=== PATIENT | male | born 1965 | race Hispanic/Latino ===

== ENCOUNTER 2017-11-04 18:02 | Observation (INO) | payer OTHER ==
[2017-11-04] MEDS ORDERED: NITROGLYCERIN 0.4 MG/TAB SL ONE (18:32)
[2017-11-04 19:00] LABS: Protime INR 1.03
--- NOTE | 2017-11-04 19:00 | RAD REPORT ---
EXAM DESCRIPTION: RAD - Chest Single View - 11/04/2017 6:39 pm CLINICAL HISTORY: CHEST PAIN Chest pain. COMPARISON: Chest Single View dated 03/01/2017; Chest Single View dated 11/27/2016; Chest Single View d ated 04/17/2016; Chest Single View dated 12/19/2015 FINDINGS: Portable technique limits examination quality. The lungs are grossly clear. The heart is normal in size. No displaced fractures.Sternotomy wires pre sent. IMPRESSION: No acute intrathoracic process suspected.
[2017-11-04 19:01] LABS: Absolute Lymphocytes (CBC) 1.8 K/uL (0.7-4.9); Absolute Monocytes 0.5 K/uL (0.1-1.3); Absolute Neutrophil 4.4 K/uL (1.8-8.0); Eosinophils % 3.3 % (0-4.4); Lymphocytes % 26.1 % (15.3-44.8); MCH 30.8 pg (27.0-35.0); MCV 87.9 fL (80-100); MPV 8.2 fL (7.6-11.3); Monocytes % 6.9 % (3.3-12.3); RBC Red Blood Cell Count 5.23 M/uL (4.33-5.43)
[2017-11-04 19:20] LABS: ALT/SGPT 33 U/L (12-78); AST/SGOT 26 U/L (15-37); Albumin 3.4 g/dL (3.4-5.0); Alkaline Phosphatase 89 U/L (45-117); BUN Blood Urea Nitrogen 16 mg/dL (7-18); Bicarbonate 28 mmol/L (21-32); Bilirubin Direct 0.1 mg/dL (0-0.2); Bilirubin Total 0.3 mg/dL (0.2-1.0); Glucose Level 198 mg/dL (74-106); Magnesium 1.8 mg/dL (1.8-2.4); NT PRO-BNP 771 pg/mL (<125); Potassium 3.9 mmol/L (3.5-5.1); Protein, Total 7.9 g/dL (6.4-8.2); Sodium Level 135 mmol/L (136-145); Troponin (Emerg Dept Use Only) < 0.02 ng/mL (0.0-0.045)
[2017-11-04] MEDS ORDERED: ONDANSETRON 4 MG/2 ML VIAL ONE (19:45)
[2017-11-04] MEDS ORDERED: MORPHINE 4 MG/ML SYR ONE (19:45)
--- NOTE | 2017-11-04 19:45 | EDPHYS ---
Physician Documentation [facility] Name: Jorge Schultz Jr Age: 52 yrs Sex: Male : 1965 Arrival Date: 11/04/2017 Time: 18:03 Bed 13 Private MD: Felipe Sinha ED Physician Tee Bragg HPI: 11/04 19:29 This 52 yrs old Male presents to ER via Ambulatory with complaints of Chest jr8 Pain > 30 y/o. 19:29 The patient or guardian reports chest pain that is located primarily in the substernal jr8 area. Onset: acutely, today. The pain radiates to the left arm. Associated signs and symptoms: The patient has no apparent associated signs or symptoms. The chest pain is described as a heaviness, a pressure. Duration: The patient or guardian reports a single episode, that is still ongoing. Modifying factors: The symptoms are alleviated by nothing. the symptoms are aggravated by nothing. Severity of pain: At its worst the pain was moderate in the emergency department the pain is unchanged. The patient has experienced similar episodes in the past, a few times. The patient has not recently seen a physician. Historical: - Allergies: 18:20 No Known Allergies; ph - Home Meds: 18:20 Lantus 100 unit/mL Sub-Q soln [Active]; lisinopril Oral [Active]; Metoprolol Tartrate ph Oral [Active]; [place] 10-325 mg Oral tab [Active]; Plavix 75 mg Oral tab 1 tab once daily [Active]; Soma Oral [Active]; Victoza 3-Imer 0.6 mg/0.1 mL (18 mg/3 mL) subcutaneous pnij [Active]; Xanax Oral [Active]; Lipitor Oral [Active]; Jessenia Aspirin oral oral [Active]; - PMHx: 18:20 ADD/ADHD; Anxiety; CAD; Diabetes - NIDDM; GERD; Glaucoma; High Cholesterol; Myocardial ph infarction; Hypertension; - PSHx: 18:20 CABG; Heart stents; ph - Immunization history:: Adult Immunizations unknown. - Social history:: Smoking status: Patient/guardian denies using tobacco. - Ebola Screening: : No symptoms or risks identified at this time. ROS: 19:29 Eyes: Negative for injury, pain, redness, and discharge, ENT: Negative for injury, jr8 pain, and discharge, Neck: Negative for injury, pain, and swelling, Respiratory: Negative for shortness of breath, cough, wheezing, and pleuritic chest pain, Abdomen/GI: Negative for abdominal pain, nausea, vomiting, diarrhea, and constipation, Back: Negative for injury and pain, MS/Extremity: Negative for injury and deformity, Skin: Negative for injury, rash, and discoloration, Neuro: Negative for headache, weakness, numbness, tingling, and seizure. 19:29 Cardiovascular: Positive for chest pain, Negative for edema, orthopnea, palpitations, paroxysmal nocturnal dyspnea. Exam: 19:29 Eyes: Pupils equal round and reactive to light, extra-ocular motions intact. Lids and jr8 lashes normal. Conjunctiva and sclera are non-icteric and not injected. Cornea within normal limits. Periorbital areas with no swelling, redness, or edema. ENT: Nares patent. No nasal discharge, no septal abnormalities noted. Tympanic membranes are normal and external auditory canals are clear. Oropharynx with no redness, swelling, or masses, exudates, or evidence of obstruction, uvula midline. Mucous membranes moist. Neck: Trachea midline, no thyromegaly or masses palpated, and no cervical lymphadenopathy. Supple, full range of motion without nuchal rigidity, or vertebral point tenderness. No Meningismus. Cardiovascular: Regular rate and rhythm with a normal S1 and S2. No gallops, murmurs, or rubs. Normal PMI, no JVD. No pulse deficits. Respiratory: Lungs have equal breath sounds bilaterally, clear to auscultation and percussion. No rales, rhonchi or wheezes noted. No increased work of breathing, no retractions or nasal flaring. Abdomen/GI: Soft, non-tender, with normal bowel sounds. No distension or tympany. No guarding or rebound. No evidence of tenderness throughout. Back: No spinal tenderness. No costovertebral tenderness. Full range of motion. Skin: Warm, dry with normal turgor. Normal color with no rashes, no lesions, and no evidence of cellulitis. MS/ Extremity: Pulses equal, no cyanosis. Neurovascular intact. Full, normal range of motion. Neuro: Awake and alert, GCS 15, oriented to person, place, time, and situation. Cranial nerves II-XII grossly intact. Motor strength 5/5 in all extremities. Sensory grossly intact. Cerebellar exam normal. Normal gait. Vital Signs: 18:17 BP 164 / 107; Pulse 93; Resp 22; Temp 97.7; Pulse Ox 98% on R/A; Weight 99.79 kg; Pain ph 7/10; 19:33 BP 135 / 84; Pulse 89; Resp 16; Temp 98.1; Pulse Ox 98% on R/A; Pain 6/10; ak1 20:55 BP 147 / 87; Pulse 81; Resp 16; Temp 98.1; Pulse Ox 98% on R/A; Pain 4/10; ak1 MDM: 18:20 Patient medically screened. jr8 19:29 HEART Score: History: Moderately Suspicious (1), ECG: Normal (0), Age: > 45 and < 65 jr8 years (1), Risk Factors: > or = 3 Risk factors for atherosclerotic disease (2), [Hypercholesterolemia] [Hypertension] [DM] [+ Family HX] [Obesity] Troponin: < or = 1 x Normal Limit (0). The patient was not given aspirin in the Emergency Department. Patient reports taking aspirin within the past 24 hours. Data reviewed: vital signs, nurses notes, lab test result(s), EKG, radiologic studies, plain films. Data interpreted: Pulse oximetry: on room air is 98 %. Interpretation: normal. Counseling: I had a detailed discussion with the patient and/or guardian regarding: the historical points, exam findings, and any diagnostic results supporting the discharge/admit diagnosis, lab results, radiology results, the need for further work-up and treatment in the hospital. 11/04 18:21 Order name: Basic Metabolic Panel; Complete Time: 19:21 11/04 18:21 Order name: CBC with Diff; Complete Time: 19:20 11/04 18:21 Order name: LFT's; Complete Time: 19:21 11/04 18:21 Order name: Magnesium; Complete Time: :21 11/04 18:21 Order name: NT PRO-BNP; Complete Time: 19:21 11/04 18:21 Order name: PT-INR; Complete Time: 19:20 11/04 18:21 Order name: Troponin (emerg Dept Use Only); Complete Time: 19:21 11/04 18:21 Order name: XRAY Chest (1 view); Complete [facility]: 19:20 [facility] 11/04 18:21 Order name: EKG; Complete Time: 18:21 [facility] 11/04 18:21 Order name: Cardiac monitoring; Complete Time: 18:30 [facility] 11/04 19:59 Order name: Urine Dipstick--Ancillary (enter results); Complete Time: 21:28 [facility] 11/04 18:21 Order name: EKG - Nurse/Tech; Complete Time: 18:31 [facility] 11/04 18:21 Order name: IV Saline Lock; Complete Time: 18:39 [facility] 11/04 18:21 Order name: Labs collected and sent; Complete Time: 18:39 [facility] 11/04 18:21 Order name: O2 Per Protocol; Complete Time: 18:31 [facility] 11/04 18:21 Order name: O2 Sat Monitoring; Complete Time: 18:31 [facility] 11/04 18:21 Order name: Urine Dipstick-Ancillary (obtain specimen); Complete Time: 19:54 jr Administered Medications: 18:25 Drug: Nitroglycerin 0.4 mg Route: Sublingual; rb1 18:51 Drug: Nitroglycerin 0.4 mg Route: Sublingual; rb1 19:31 Drug: Nitroglycerin 0.4 mg {Note: 3rd dose held new verbal orders given.} Route: ak1 Sublingual; 19:32 Follow up: Response: No adverse reaction ak1 19:44 Drug: Zofran 4 mg Route: IVP; Site: left antecubital; ak1 19:49 Follow up: Response: No adverse reaction ak1 19:45 Drug: morphine 4 mg Route: IVP; Site: left antecubital; ak1 19:50 Follow up: Response: No adverse reaction ak1 Disposition: 11/04/17 19:44 Hospitalization ordered by Kylee Hill for Observation. Preliminary diagnosis is Chest pain, unspecified. - Bed requested for Telemetry/MedSurg (observation). - Status is Observation. ak1 - Condition is Stable. - Problem is new. - Symptoms have improved. UTI on Admission? No Addendum: 11/09/2017 07:04 Co-signature as Attending Physician, Tee Bragg MD. r guerda Signatures: Dispatcher [facility] [place], Herlinda, RN RN dw Tee Bragg MD MD rn Roszak, Josh, PA PA jr8 Solange Rosen RN RN ak1 Yojana Hall RN RN Debra Tsang, RN RN rb1 Corrections: (The following items were deleted from the chart) 11/04 20:02 19:44 Hospitalization Ordered by Kylee Hill MD for Observation. Preliminary dw diagnosis is Chest pain, unspecified. Bed requested for Telemetry/MedSurg (observation). Status is Observation. Condition is Stable. Problem is new. Symptoms have improved. UTI on Admission? No. jr8 21:52 20:02 11/04/2017 19:44 Hospitalization Ordered by Kylee Hill MD for Observation. ak1 Preliminary diagnosis is Chest pain, unspecified. Bed requested for Telemetry/MedSurg (observation). Status is Observation. Condition is Stable. Problem is new. Symptoms have improved. UTI on Admission? No. dw
--- NOTE | 2017-11-04 19:45 | ER ---
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 Transition of care: patient was not received from another setting of care. Onset of symptoms was November 04, 2017. Risk Assessment: Do you want to hurt yourself or someone else? Patient reports no desire to harm self or others. Initial Sepsis Screen: Does the patient meet any 2 criteria? No. Patient's initial sepsis screen is negative. Does the patient have a suspected source of infection? No. Patient's initial sepsis screen is negative. Care prior to arrival: Medication(s) given: ASA, 81 mg, x 4. 18:15 Method Of Arrival: Ambulatory ph 18:15 Acuity: AALIYAH 2 ph Historical: - Allergies: 18:20 No Known Allergies; ph - Home Meds: 18:20 Lantus 100 unit/mL Sub-Q soln [Active]; lisinopril Oral [Active]; Metoprolol Tartrate ph Oral [Active]; [place] 10-325 mg Oral tab [Active]; Plavix 75 mg Oral tab 1 tab once daily [Active]; Soma Oral [Active]; Victoza 3-Imer 0.6 mg/0.1 mL (18 mg/3 mL) subcutaneous pnij [Active]; Xanax Oral [Active]; Lipitor Oral [Active]; Jessenia Aspirin oral oral [Active]; - PMHx: 18:20 ADD/ADHD; Anxiety; CAD; Diabetes - NIDDM; GERD; Glaucoma; High Cholesterol; Myocardial ph infarction; Hypertension; - PSHx: 18:20 CABG; Heart stents; ph - Immunization history:: Adult Immunizations unknown. - Social history:: Smoking status: Patient/guardian denies using tobacco. - Ebola Screening: : No symptoms or risks identified at this time. Screenin:06 Abuse screen: Denies threats or abuse. Nutritional screening: No deficits noted. rb1 Tuberculosis screening: No symptoms or risk factors identified. Fall Risk None identified. Assessment: 18:06 General: Appears uncomfortable, Behavior is calm, cooperative, Denies fever. Pain: rb1 Complains of pain in anterior aspect of left upper chest Pain radiates to left arm Pain currently is 7 out of 10 on a pain scale. Pain began around 1200 this afternoon. Neuro: Level of Consciousness is awake, alert, obeys commands, Oriented to person, place, time, situation. Neuro: Reports weakness. Cardiovascular: Capillary refill < 3 seconds is brisk in bilateral fingers. Respiratory: Airway is patent Respiratory effort is even, unlabored, Respiratory pattern is regular, symmetrical. Respiratory: Reports shortness of breath. GI: Reports nausea. : No signs and/or symptoms were reported regarding the genitourinary system. Derm: Skin is dry, Skin is normal, Skin temperature is warm. Musculoskeletal: Range of motion: intact in all extremities. 18:50 Reassessment: Patient appears in no apparent distress at this time. Patient and/or rb1 family updated on plan of care and expected duration. Pain level reassessed. Patient is alert, oriented x 3, equal unlabored respirations, skin warm/dry/pink. pain 7/10. 19:19 Reassessment: Patient appears in no apparent distress at this time. Patient and/or ak1 family updated on plan of care and expected duration. Pain level reassessed. Patient is alert, oriented x 3, equal unlabored respirations, skin warm/dry/pink. 20:55 Reassessment: Patient appears in no apparent distress at this time. No changes from ak1 previously documented assessment. Patient and/or family updated on plan of care and expected duration. Pain level reassessed. Patient is alert, oriented x 3, equal unlabored respirations, skin warm/dry/pink. Patient states feeling better. Vital Signs: 18:17 BP 164 / 107; Pulse 93; Resp 22; Temp 97.7; Pulse Ox 98% on R/A; Weight 99.79 kg; Pain ph 7/10; 19:33 BP 135 / 84; Pulse 89; Resp 16; Temp 98.1; Pulse Ox 98% on R/A; Pain 6/10; ak1 20:55 BP 147 / 87; Pulse 81; Resp 16; Temp 98.1; Pulse Ox 98% on R/A; Pain 4/10; ak1 ED Course: 18:03 Patient arrived in ED. sb2 18:03 Felipe Sinha MD is Private Physician. sb2 18:06 Patient has correct armband on for positive identification. Bed in low position. Call rb1 light in reach. Side rails up X 1. nurse monitoring on. Pulse ox on. NIBP on. 18:06 Patient maintains SpO2 saturation greater than 95% on room air. rb1 18:08 Manan Monae PA is PHCP. jr8 18:08 Tee Bragg MD is Attending Physician. jr8 18:17 Triage completed. ph 18:19 Debra Arauz, RN is Primary Nurse. rb1 18:21 Arm band placed on Patient placed in an exam room, on a stretcher, on oxygen, on ph director of cardiac cath lab, on pulse oximetry. 18:38 Initial lab(s) drawn, by me, sent to lab. Inserted saline lock: 22 gauge in left ph antecubital area, using aseptic technique. Blood collected. 18:39 X-ray completed. Portable x-ray completed in exam room. Patient tolerated procedure bb2 well. 18:40 XRAY Chest (1 view) In Process Unspecified. EDMS 19:33 No provider procedures requiring assistance completed. Patient admitted, IV remains in ak1 place. 19:44 Kylee Hill MD is Hospitalizing Provider. jr8 Administered Medications: 18:25 Drug: Nitroglycerin 0.4 mg Route: Sublingual; rb1 18:51 Drug: Nitroglycerin 0.4 mg Route: Sublingual; rb1 19:31 Drug: Nitroglycerin 0.4 mg {Note: 3rd dose held new verbal orders given.} Route: ak1 Sublingual; 19:32 Follow up: Response: No adverse reaction ak1 19:44 Drug: Zofran 4 mg Route: IVP; Site: left antecubital; ak1 19:49 Follow up: Response: No adverse reaction ak1 19:45 Drug: morphine 4 mg Route: IVP; Site: left antecubital; ak1 19:50 Follow up: Response: No adverse reaction ak1 Outcome: 19:44 Decision to Hospitalize by Provider. jr8 20:54 Condition: stable ak1 20:54 Instructed on the need for admit. 21:42 Admitted to Med/surg accompanied by tech, via wheelchair, room 429, with chart. ak1 21:52 Patient left the ED. ak1 Signatures: Dispatcher [employer] EDMS Manan Monae PA PA jr8 Krenek, Amber RN RN ak1 Yojana Hall RN RN Debra Tsang RN RN rb1 Malika Lauren bb2 Marily Trinidad2
[2017-11-04] MEDS ORDERED: ACETAMINOPHEN 500 MG TAB PO PRN (20:44)
[2017-11-04] MEDS ORDERED: ALPRAZOLAM 0.25 MG TABLET PO PRN (20:44)
[2017-11-04] MEDS ORDERED: METOPROLOL TAR 50 MG TAB PO SCH (21:00)
[2017-11-04] MEDS ORDERED: INSULIN GLARGINE 100 UNITS/ML SQ SCH (21:00)
[2017-11-04 21:26] LABS: Urine Blood TRACE (NEG); Urine Glucose 1+ (NEG); Urine Protein 1+ (NEG); Urine Specific Gravity 1.015 (1.005-1.030); Urine pH 6.5 (5.0-7.0)
[2017-11-04 22:05] VITALS: O2SAT 98
[2017-11-04] MEDS: CARISOPRODOL 350 MG TAB PO PRN (22:55)
[2017-11-04] MEDS: HYDROCODONE/APAP 10/325 TAB PO PRN (22:56)
[2017-11-04 23:06] VITALS: BMI 34.9
[2017-11-04] MEDS: METOPROLOL TAR 50 MG TAB PO SCH (23:31)
[2017-11-05] MEDS: MORPHINE 4 MG/ML SYR IV PRN ×2 (01:12→06:05)
--- NOTE | 2017-11-05 07:47 | P.HP ---
Certification for Inpatient Patient admitted to: Observation With expected LOS: <2 Midnights Patient will require the following post-hospital care: None Practitioner: I am a practitioner with admitting privileges, knowledge of patient current condition, hospital course, and medical plan of care. Services: Services provided to patient in accordance with Admission requirements found in Title 42 Section 412.3 of the Code of Federal Regulations Patient History Date of Service: 11/04/17 Reason for admission: CP r/o ACS History of Present Illness: job id # [id number] Allergies No Known Drug Allergies Allergy (Verified 07/29/15 05:14) Unknown No Known Allergies Allergy (Uncoded 04/17/16 07:21) Unknown Home Medications: Amlodipine Besylate [Norvasc] 10 mg PO DAILY 11/17/11 Clopidogrel Bisulfate [Plavix] 75 mg PO DAILY 11/17/11 ALPRAZolam [Xanax*] 0.25 mg PO TID PRN 03/21/14 Atorvastatin Calcium 10 mg PO DAILY 03/21/14 Carisoprodol [Soma*] 350 mg PO QID PRN 03/21/14 Insulin Glargine,Hum.rec.anlog [Lantus] 58 unit SQ BEDTIME 03/22/14 Aspirin [Aspirin EC 81 MG] 81 mg PO DAILY 12/28/14 Bimatoprost [Lumigan Opthalmic Drops*] 1 drop OP BEDTIME 12/28/14 Hydrocodone 10/APAP 325 [[place] 10/325*] 1 tab PO Q6H PRN 01/22/15 Albuterol Sulfate [Proair Hfa] 2 puff IH QID PRN 03/18/15 Liraglutide [Victoza 2-Imer] 1.8 mg SQ DAILY 03/18/15 Metoprolol Tartrate 100 mg PO BID 11/04/17 - Past Medical/Surgical History Diabetic: Yes -: X3 MIs -: IDDM -: chronic back pain -: cataracts -: glaucoma rt eye -: cellulitis -: staph infection with CABG -: Glaucoma -: Staph infection wound chest -: cardiac cath -: lumbar epidural injection x3 -: CABG (May 29 2014) x 4 vessels -: cardiac stents 01/06 - Family History Mother Medical History: Heart disease, Diabetes Father Medical History: Stroke, Cancer Notes: Multiple CANCER Sister Medical History: Cancer Notes: liver - Social History Smoking Status: Former smoker Alcohol use: No CD- Drugs: No Caffeine use: Yes Place of Residence: Home Review of Systems 10-point ROS is otherwise unremarkable Physical Examination - Vital Signs Temperature: 97 F Blood Pressure: 128/58 Pulse: 71 Respirations: 20 Pulse Ox (%): 98 - Studies Laboratory Data (last 24 hrs) 11/04/17 18:35: PT 12.1, INR 1.03 11/04/17 18:35: WBC 7.0, Hgb 16.1, Hct 46.0, Plt Count 186 11/04/17 18:35: Sodium 135 L, Potassium 3.9, BUN 16, Creatinine 1.10, Glucose 198 H, Magnesium 1.8, Total Bilirubin 0.3, AST 26, ALT 33, Alkaline Phosphatase 89 Assessment & Plan - Advance Directives Does patient have a Living Will: No Does patient have a Durable POA for Healthcare: No
[2017-11-05] MEDS ORDERED: ENOXAPARIN 40 MG/0.4 ML SQ SCH (09:00)
[2017-11-05] MEDS ORDERED: ASPIRIN 325 MG TAB PO SCH (09:00)
[2017-11-05] MEDS: METOPROLOL TAR 50 MG TAB PO SCH (10:17)
[2017-11-05] MEDS: CARISOPRODOL 350 MG TAB PO PRN (10:17)
[2017-11-05] MEDS: HYDROCODONE/APAP 10/325 TAB PO PRN (10:17)
[2017-11-05 10:18] VITALS: BP 148/99
[2017-11-05 10:33] VITALS: TEMP 96.5
--- NOTE | 2017-11-05 10:44 | HP ---
Date of Admission: 11/04/2017 Reason For Admission: Chest pain. History Of Present Illness: This is a 52-year-old gentleman who came to the hospital with chest disc omfort. The patient had a history of coronary artery disease with stent placement. The chest pain s tarted in the sternal region and he was short of breath. The patient was given morphine and his symp toms resolved. The patient denies any other complaints. A 10-point review of systems is otherwise u nremarkable. The patient is feeling much better. We will admit him to the hospital and rule him out for acute coronary syndrome. Review of Systems: A 10-point review of systems is otherwise unremarkable. Past Medical History: Coronary artery disease, type 2 diabetes, chronic low back pain, cataracts, gl aucoma. Past Surgical History: Coronary artery bypass grafting, staph infection to the sternotomy site; the patient had epidural x3; cardiac catheterization with stent. Family History: Mother had heart disease and diabetes. Father with a stroke and cancer. Sister wit h cancer. Social History: The patient quit smoking many years ago. Does not drink or do any drugs. Home Medications: Have been reviewed and are in the chart. Physical Examination: Vital signs: Vitals revealed a temp of 98, heart rate is 70, respiration 18, blood pressure 170/80, saturating 96%. General: Patient lying in bed, comfortable, no distress. Awake, alert, oriented to person, place, t sarita. HEENT exam: Normocephalic, atraumatic. Pupils equal, reactive to light. Extraocular muscles intact . There is no JVP. No bruits. Oropharynx pink, moist. No lymphadenopathy. No thyromegaly. TMs n ormal. Cardiovascular exam: Regular rate and rhythm. No murmur, rubs, or gallops. Lungs: Clear bilaterally. Abdomen: Soft, nontender, nondistended. Bowel sounds positive. Extremities: No clubbing, no cyanosis, no edema. Neurologic: Cranial nerves 2 through 12 intact. Motor is 5/5. Sensation intact to light touch and pain. Skin: No deformities. Labs: Have been reviewed. Assessment: 1.Patient with chest pain. Rule out for acute coronary syndrome. 2.Patient with history of type 2 diabetes. 3.History of chronic back pain and chronic pain syndrome. 4.Patient with coronary artery disease with stent placement. Plan: Plan at this time is: 1.To do serial troponins and EKG. 2.Antiplatelet therapy and statin therapy along with the anticoagulation. 3.Strict blood pressure and blood sugar control. 4.Cardiology consultation. 5.Echocardiogram. 6.Lipid profile in the morning. 7.Pain control. 8.GI and DVT prophylaxis. SHEFALI Voice ID: [id number]
--- NOTE | 2017-11-05 14:30 | P.SSS ---
Patient History Date of Service: 11/05/17 Reason for admission: CP r/o ACS History of Present Illness: 52-year-old male with significant past medical history who was admitted to the hospital for chest pain Allergies No Known Drug Allergies Allergy (Verified 07/29/15 05:14) Unknown No Known Allergies Allergy (Uncoded 04/17/16 07:21) Unknown Home Medications: Amlodipine Besylate [Norvasc] 10 mg PO DAILY 11/17/11 Clopidogrel Bisulfate [Plavix] 75 mg PO DAILY 11/17/11 ALPRAZolam [Xanax*] 0.25 mg PO TID PRN 03/21/14 Atorvastatin Calcium 10 mg PO DAILY 03/21/14 Carisoprodol [Soma*] 350 mg PO QID PRN 03/21/14 Insulin Glargine,Hum.rec.anlog [Lantus] 58 unit SQ BEDTIME 03/22/14 Aspirin [Aspirin EC 81 MG] 81 mg PO DAILY 12/28/14 Bimatoprost [Lumigan Opthalmic Drops*] 1 drop OP BEDTIME 12/28/14 Hydrocodone 10/APAP 325 [[place] 10/325*] 1 tab PO Q6H PRN 01/22/15 Albuterol Sulfate [Proair Hfa] 2 puff IH QID PRN 03/18/15 Liraglutide [Victoza 2-Imer] 1.8 mg SQ DAILY 03/18/15 Metoprolol Tartrate 100 mg PO BID 11/04/17 - Past Medical/Surgical History Diabetic: Yes -: X3 MIs -: IDDM -: chronic back pain -: cataracts -: glaucoma rt eye -: cellulitis -: staph infection with CABG -: Glaucoma -: Staph infection wound chest -: cardiac cath -: lumbar epidural injection x3 -: CABG (May 29 2014) x 4 vessels -: cardiac stents 01/06 - Family History Mother -: Heart disease, Diabetes Father -: Stroke, Cancer Notes: Multiple CANCER Sister -: Cancer Notes: liver - Social History Smoking Status: Former smoker Alcohol use: No CD- Drugs: No Caffeine use: Yes Place of Residence: Home Review of Systems 10-point ROS is otherwise unremarkable Physical Examination - Vital Signs Temperature: 96.5 F Blood Pressure: 148/99 Pulse: 77 Respirations: 16 Pulse Ox (%): 98 - Physical Exam General: Alert, In no apparent distress HEENT: Atraumatic, PERRLA, Mucous membr. moist/pink, EOMI, Sclerae nonicteric Neck: Supple, 2+ carotid pulse no bruit, No LAD, Without JVD or thyroid abnormality Respiratory: Clear to auscultation bilaterally, Normal air movement Cardiovascular: Regular rate/rhythm, Normal S1 S2 Gastrointestinal: Normal bowel sounds, No tenderness Musculoskeletal: No tenderness Integumentary: No rashes Neurological: Normal gait, Normal speech, Normal strength at 5/5 x4 extr, Normal tone, Normal affect Lymphatics: No axilla or inguinal lymphadenopathy - Studies Laboratory Data (last 24 hrs) 11/04/17 18:35: PT 12.1, INR 1.03 11/04/17 18:35: WBC 7.0, Hgb 16.1, Hct 46.0, Plt Count 186 11/04/17 18:35: Sodium 135 L, Potassium 3.9, BUN 16, Creatinine 1.10, Glucose 198 H, Magnesium 1.8, Total Bilirubin 0.3, AST 26, ALT 33, Alkaline Phosphatase 89 Treatment Summary: Discharged diagnosis: 1 chest pain 2 hypertension Hospital Course: Overall during the hospital stay patient remained stable Patient was admitted for chest pain most likely secondary to atypical chest pain. Cardiology was consulted who recommended the patient can be discharged home and resume home medication. Patient to follow up with cardiology in about 1-2 days post discharge. Chest pain most likely musculoskeletal in nature and no acute intervention is needed at this time. - Disposition Disposition: ROUTINE DISCHARGE Condition: GOOD Diet: Regular Activity: Ad jennifer
[2017-11-05] MEDS ORDERED: INSULIN GLARGINE 100 UNITS/ML SQ SCH (21:00)
--- NOTE | 2017-11-06 12:16 | EKG ---
Test Date: 2017-11-04 Test Time: 18:27:16 Wilderness Guide: DELTA MEASUREMENT RESULTS: Intervals: Rate: 93 IL: 144 QRSD: 96 QT: 360 QTc: 447 [place]: P: 32 IL: 144 QRS: -64 T: 7 INTERPRETIVE STATEMENTS: Normal sinus rhythm Incomplete right bundle branch block Left anterior fascicular block Septal infarct, age undetermined Abnormal ECG Compared to ECG 03/01/2017 22:18:42 Incomplete right bundle-branch block now present Myocardial infarct finding still present Electronically Signed On 11-06-17 12:08:34 CDT by Eduardo Brush
--- NOTE | 2017-11-06 13:34 | CON ---
Date of Consultation: 11/05/[address] Hill's service on 11/04/2017. I saw the patient on 11/05/2017. Reason For Consultation: Stable angina. History Of Present Illness: Mr. Schultz is a 52-year-old male, very well known to me f rom previous office visit and admission. He has a history of coronary artery disease status post CAB G. His FLOYD failed and occluded. Catheterization last was in 2016 at that time, since his FLOYD has closed, I put 2 LAD stents, both of them were open in 2016 and circumflex was normal. He had an occl uded RCA graft at 100% with a vein graft to the RCA that was normal. Has been having intermittent st able angina, especially under stress. He came in with the same symptoms. Negative troponin. BNP 77 1. He was hypertensive at 164/112. He is asymptomatic now. Denied PND, orthopnea, pedal edema, pal pitations, or syncope. Allergies: NONE. Review of Systems: Negative. Social History: Negative. Family History: Negative. Medications: Include Xanax, albuterol, Norvasc, aspirin, Lipitor, Soma compound, Tylenol No. 3, Vict cynthia, insulin, and metoprolol 100 mg b.i.d. Past Medical History: Include, ADD, diabetes, hypertension, dyslipidemia, CAD, CABG, PCI, and gastro esophageal reflux disease. Physical Examination: Vital Signs: Stable. He was afebrile. He has a normal rhythm. Blood pressure is improved. HEENT: Negative. Neck: Supple. No bruit. Chest: Clear. Cardiac: Exam reveals regular rhythm and rate, he has S4 gallops. Abdomen: Benign. Extremities: Revealed no clubbing, cyanosis, or edema. Diagnostic Data: As stated earlier. Impression And Plan: 1.Chronic stable angina. 2.Hypertension, poorly controlled. 3.Diabetes. 4.Dyslipidemia. 5.Gastroesophageal reflux disease. Mr. Schultz's last catheterization in 2015 showed patent LAD stent proximal and mid normal circumflex, occluded RCA with patent graft to the RCA. His EKG is unremarkable. Troponin is negative. I do no t plan to do another catheterization on him at this point. I recommended he increase his beta-blocke r as needed. He has tried Imdur and Ranexa, and he does not react well to them. I have given him a prescription for nitroglycerin as needed. He will continue his other medications for his diabetes, d yslipidemia, and gastroesophageal reflux disease. I am hoping increasing the beta-michelle will take care of the blood pressure as well as his angina. He does not do well with stress test, but always p ositive. We will recommend a heart catheterization if his symptoms persist. He knows to call me if his symptoms get worse. He can go home whenever it is okay with Dr. Hill. He will see me in the off ice in the next week or 2. PATRICIA/CORTES Voice ID: [id number] Report ID: [id number]
== END 2017-11-05 11:10 | disposition home or self-care (01) ==
LOC: ER 18:02 → ERHOLD 19:44 → 4TH 20:56
PROVIDERS: ADMIT Physician Assistant; ATTEND Hospitalist
DX: R07.9 Chest pain, unspecified (principal); I10 Essential (primary) hypertension; I25.10 Atherosclerotic heart disease of native coronary artery without angina pectoris; Z95.1 Presence of aortocoronary bypass graft; E11.9 Type 2 diabetes mellitus without complications; Z95.5 Presence of coronary angioplasty implant and graft
CPT/HCPCS: 36415; 71045; 80048; 80076; 81003; 82962 ×2; 83735; 83880; 84484 ×3; 85025; 85610; 93005; 96374; 96375; 99285; G0378 ×2; J1650; J2405

== ENCOUNTER 2018-08-01 08:08 | Observation (INO) | payer OTHER ==
[2018-08-01] MEDS ORDERED: NA CHLORIDE 0.9% 1,000 ML ONE (08:46)
--- NOTE | 2018-08-01 08:54 | EDPHYS ---
Physician Documentation [facility] Name: Jorge Schultz Jr Age: 53 yrs Sex: Male : 1965 Arrival Date: 08/01/2018 Time: 08:10 Bed 7 Private MD: ED Physician Maury Mendieta HPI: 08/01 08:48 This 53 yrs old Male presents to ER via Wheelchair with complaints of Chest chas Pain. 08:48 The patient or guardian reports chest pain that is located primarily in the substernal chas area, anterior chest wall, bilaterally. Onset: 2 day(s) ago. The pain does not radiate. Associated signs and symptoms: Pertinent positives: nausea, vomiting. The chest pain is described as a pressure. Severity of pain: At its worst the pain was mild moderate in the emergency department the pain is unchanged. Historical: - Allergies: 08:28 No Known Allergies; iw - Home Meds: 08:28 Jessenia Aspirin Oral [Active]; Lantus 100 unit/mL Sub-Q soln [Active]; Lipitor Oral iw [Active]; lisinopril Oral [Active]; Metoprolol Tartrate Oral [Active]; [place] 10-325 mg Oral tab [Active]; Plavix 75 mg Oral tab 1 tab once daily [Active]; Soma Oral [Active]; Victoza 3-Imer 0.6 mg/0.1 mL (18 mg/3 mL) subcutaneous pnij [Active]; Xanax Oral [Active]; - PMHx: 08:28 ADD/ADHD; Anxiety; CAD; Diabetes - NIDDM; GERD; Glaucoma; High Cholesterol; iw Hypertension; Myocardial infarction; - PSHx: 08:28 CABG; Heart stents; iw - Immunization history:: Adult Immunizations not up to date. - Social history:: Smoking status: Patient/guardian denies using tobacco. - Ebola Screening: : Patient negative for fever greater than or equal to 101.5 degrees Fahrenheit, and additional compatible Ebola Virus Disease symptoms Patient denies exposure to infectious person Patient denies travel to an Ebola-affected area in the 21 days before illness onset No symptoms or risks identified at this time. ROS: 08:51 Constitutional: Negative for fever, chills, and weight loss, Eyes: Negative for injury, chas pain, redness, and discharge, ENT: Negative for injury, pain, and discharge, Neck: Negative for injury, pain, and swelling, Respiratory: Negative for shortness of breath, cough, wheezing, and pleuritic chest pain, Back: Negative for injury and pain, : Negative for injury, bleeding, discharge, and swelling, MS/Extremity: Negative for injury and deformity, Skin: Negative for injury, rash, and discoloration, Psych: Negative for depression, anxiety, suicide ideation, homicidal ideation, and hallucinations, Allergy/Immunology: Negative for hives, rash, and allergies, Endocrine: Negative for neck swelling, polydipsia, polyuria, polyphagia, and marked weight changes, Hematologic/Lymphatic: Negative for swollen nodes, abnormal bleeding, and unusual bruising. 08:51 Cardiovascular: Positive for chest pain, with cough. 08:51 Respiratory: Positive for cough. 08:51 Abdomen/GI: Positive for nausea and vomiting. 08:51 Neuro: Positive for headache. Exam: 08:51 Constitutional: This is a well developed, well nourished patient who is awake, alert, chas and in no acute distress. Head/Face: Normocephalic, atraumatic. Eyes: Pupils equal round and reactive to light, extra-ocular motions intact. Lids and lashes normal. Conjunctiva and sclera are non-icteric and not injected. Cornea within normal limits. Periorbital areas with no swelling, redness, or edema. ENT: Nares patent. No nasal discharge, no septal abnormalities noted. Tympanic membranes are normal and external auditory canals are clear. Oropharynx with no redness, swelling, or masses, exudates, or evidence of obstruction, uvula midline. Mucous membranes moist. Neck: Trachea midline, no thyromegaly or masses palpated, and no cervical lymphadenopathy. Supple, full range of motion without nuchal rigidity, or vertebral point tenderness. No Meningismus. Chest/axilla: Normal chest wall appearance and motion. Nontender with no deformity. No lesions are appreciated. Cardiovascular: Regular rate and rhythm with a normal S1 and S2. No gallops, murmurs, or rubs. Normal PMI, no JVD. No pulse deficits. Respiratory: Lungs have equal breath sounds bilaterally, clear to auscultation and percussion. No rales, rhonchi or wheezes noted. No increased work of breathing, no retractions or nasal flaring. Abdomen/GI: Soft, non-tender, with normal bowel sounds. No distension or tympany. No guarding or rebound. No evidence of tenderness throughout. Back: No spinal tenderness. No costovertebral tenderness. Full range of motion. Male : Normal genitalia with no discharge or lesions. Skin: Warm, dry with normal turgor. Normal color with no rashes, no lesions, and no evidence of cellulitis. MS/ Extremity: Pulses equal, no cyanosis. Neurovascular intact. Full, normal range of motion. Neuro: Awake and alert, GCS 15, oriented to person, place, time, and situation. Cranial nerves II-XII grossly intact. Motor strength 5/5 in all extremities. Sensory grossly intact. Cerebellar exam normal. Normal gait. Psych: Awake, alert, with orientation to person, place and time. Behavior, mood, and affect are within normal limits. 08:51 Musculoskeletal/extremity: ROM: intact in all extremities, Circulation is intact in all extremities. Sensation intact. Compartment Syndrome exam of affected extremity: unable to examine. DVT Exam: No signs of deep vein thrombosis. no pain, no swelling, no tenderness, negative Homans' sign noted on exam, no appreciated bluish discoloration, no erythema, no increased warmth. Vital Signs: 08:28 BP 151 / 100; Pulse 82; Resp 18 S; Temp 98.0; Pulse Ox 100% on R/A; Weight 97.52 kg; iw Height 5 ft. 5 in. (165.10 cm); Pain 7/10; 10:00 BP 144 / 90; Pulse 79; Resp 19; Pulse Ox 100% ; tr5 11:15 BP 130 / 86; Pulse 82; Resp 19; Pulse Ox 99% on R/A; tr5 12:15 BP 155 / 110; Pulse 75; Resp 20; Pulse Ox 99% on R/A; tr5 13:48 BP 127 / 83; Pulse 78; Resp 20; Pulse Ox 99% on R/A; tr5 08:28 Body Mass Index 35.78 (97.52 kg, 165.10 cm) iw MDM: 08:24 Patient medically screened. [facility] 08:52 Data reviewed: vital signs, nurses notes, lab test result(s), EKG, radiologic studies, [facility] CT scan, plain films. 08/01 08:26 Order name: Basic Metabolic Panel; Complete Time: 11:34 [facility] 08/01 08:26 Order name: CBC with Diff; Complete Time: 10:31 [facility] 08/01 08:26 Order name: LFT's; Complete Time: 11:34 [facility] 08/01 08:26 Order name: Magnesium; Complete Time: 11:34 [facility] 08/01 08:26 Order name: NT PRO-BNP; Complete Time: 11:34 [facility] 08/01 08:26 Order name: PT-INR; Complete Time: 10:31 [facility] 08/01 08:26 Order name: Troponin (emerg Dept Use Only); Complete Time: 11:34 [facility] 08/01 08:26 Order name: XRAY Chest (1 view) [facility] 08/01 08:26 Order name: Lipase; Complete Time: 11:34 [facility] 08/01 08:45 Order name: CT Head Brain wo Cont; Complete Time: 09:48 [facility] 08/01 12:14 Order name: Urine Dipstick--Ancillary (enter results) bd 08/01 13:29 Order name: Urine Dipstick-Ancillary EDMS 08/01 14:57 Order name: Troponin (emerg Dept Use Only) 08/01 08:26 Order name: EKG; Complete Time: 08:29 [facility] 08/01 08:26 Order name: Cardiac monitoring; Complete Time: 10:05 [facility] 08/01 08:26 Order name: EKG - Nurse/Tech; Complete Time: 10:05 [facility] 08/01 08:26 Order name: IV Saline Lock; Complete Time: 10:05 [facility] 08/01 08:26 Order name: Labs collected and sent; Complete Time: 10:05 [facility] 08/01 08:26 Order name: O2 Per Protocol; Complete Time: 10:05 [facility] 08/01 08:26 Order name: O2 Sat Monitoring; Complete Time: 10:05 [facility] 08/01 08:26 Order name: Urine Dipstick-Ancillary (obtain specimen); Complete Time: 12:21 [facility] 08/01 14:34 Order name: Diet [place] [address] [place]; Complete Time: 14:36 bd Administered Medications: 10:04 Drug: Lovenox 1 mg/kg Route: Sub-Q; Site: abdomen; tr5 10:30 Follow up: Response: No adverse reaction tr5 10:05 Drug: morphine 4 mg Route: IVP; Site: left antecubital; tr5 10:30 Follow up: Response: Pain is decreased tr5 10:05 Drug: Zofran 4 mg Route: IVP; Site: left antecubital; tr5 10:30 Follow up: Response: Nausea is decreased tr5 10:05 Drug: Aspirin 162 mg Route: PO; tr5 10:30 Follow up: Response: No adverse reaction tr5 10:06 Drug: NS 0.9% 1000 ml Route: IV; Rate: 125 ml/hr; Site: left antecubital; tr5 11:00 Follow up: IV Status: Completed infusion tr5 13:40 Drug: morphine 4 mg Route: IVP; Site: left forearm; sg 14:03 Follow up: Response: Pain is decreased tr5 13:40 Drug: Zofran 4 mg Route: IVP; Site: left forearm; sg 14:03 Follow up: Response: Nausea is decreased tr5 Disposition: 08/01/18 08:53 Hospitalization ordered by Lance Franco for Observation. Preliminary diagnosis are Chest pain, unspecified, Essential (primary) hypertension, Type 2 diabetes mellitus. - Bed requested for Telemetry/MedSurg (observation). - Status is Observation. iw - Condition is Fair. - Problem is new. - Symptoms have improved. UTI on Admission? No Signatures: Dispatcher [employer] EDMS Rosa Isela Cruz Steven, RN RN sg Anderson, Corey, MD MD cha Williams, Irene, RN RN iw Bubba Abarca RN RN tr5 Corrections: (The following items were deleted from the chart) 12:59 08:53 Hospitalization Ordered by Lance Franco MD for Observation. Preliminary diagnosis iw is Chest pain, unspecified; Essential (primary) hypertension; Type 2 diabetes mellitus. Bed requested for Telemetry/MedSurg (observation). Status is Observation. Condition is Fair. Problem is new. Symptoms have improved. UTI on Admission? No. chas 13:39 12:59 08/01/2018 08:53 Hospitalization Ordered by Lance Franco MD for Observation. bd Preliminary diagnosis is Chest pain, unspecified; Essential (primary) hypertension; Type 2 diabetes mellitus. Bed requested for [facility] ER HOLD. Status is Observation. Condition is Fair. Problem is new. Symptoms have improved. UTI on Admission? No. iw 15:45 13:39 08/01/2018 08:53 Hospitalization Ordered by Lance Franco MD for Observation. iw Preliminary diagnosis is Chest pain, unspecified; Essential (primary) hypertension; Type 2 diabetes mellitus. Bed requested for Telemetry/MedSurg (observation). Status is Observation. Condition is Fair. Problem is new. Symptoms have improved. UTI on Admission? No. bd
--- NOTE | 2018-08-01 08:54 | ER ---
Nurse's Notes [facility] Name: Jorge Schultz Jr Age: 53 yrs Sex: Male : 1965 Arrival Date: 08/01/2018 Time: 08:10 Bed 7 Private MD: Diagnosis: Chest pain, unspecified;Essential (primary) hypertension;Type 2 diabetes mellitus Presentation: 08/01 08:25 Presenting complaint: Patient states: midsternal chest pain X 2 days, started vomiting iw this morning, hx of GA X 4 years ago, pain 7/10, also has pressure to back of head. Transition of care: patient was not received from another setting of care. Onset of symptoms was July 30, 2018. Risk Assessment: Do you want to hurt yourself or someone else? Patient reports no desire to harm self or others. Initial Sepsis Screen: Does the patient meet any 2 criteria? No. Patient's initial sepsis screen is negative. Does the patient have a suspected source of infection? No. Patient's initial sepsis screen is negative. Care prior to arrival: None. 08:25 Method Of Arrival: Wheelchair iw 08:25 Acuity: AALIYAH 2 iw Triage Assessment: 13:52 General: Appears in no apparent distress. Behavior is calm, cooperative. Pain:. tr5 Historical: - Allergies: 08:28 No Known Allergies; iw - Home Meds: 08:28 Jessenia Aspirin Oral [Active]; Lantus 100 unit/mL Sub-Q soln [Active]; Lipitor Oral iw [Active]; lisinopril Oral [Active]; Metoprolol Tartrate Oral [Active]; [place] 10-325 mg Oral tab [Active]; Plavix 75 mg Oral tab 1 tab once daily [Active]; Soma Oral [Active]; Victoza 3-Imer 0.6 mg/0.1 mL (18 mg/3 mL) subcutaneous pnij [Active]; Xanax Oral [Active]; - PMHx: 08:28 ADD/ADHD; Anxiety; CAD; Diabetes - NIDDM; GERD; Glaucoma; High Cholesterol; iw Hypertension; Myocardial infarction; - PSHx: 08:28 CABG; Heart stents; iw - Immunization history:: Adult Immunizations not up to date. - Social history:: Smoking status: Patient/guardian denies using tobacco. - Ebola Screening: : Patient negative for fever greater than or equal to 101.5 degrees Fahrenheit, and additional compatible Ebola Virus Disease symptoms Patient denies exposure to infectious person Patient denies travel to an Ebola-affected area in the 21 days before illness onset No symptoms or risks identified at this time. Screenin:55 Abuse screen: Denies threats or abuse. Denies injuries from another. Nutritional sg screening: No deficits noted. Tuberculosis screening: No symptoms or risk factors identified. Never had TB. Fall Risk None identified. Assessment: 10:30 Reassessment: Pt back in bed. Bed in lowest position with call light in reach. Pt AAOX4 tr5 with no signs/symptoms of distress. Will continue to monitor. 11:41 Also complains of nausea. Tenecteplase (TNKase) screening:. General: Appears tr5 comfortable, well groomed, Behavior is Reports Denies fever, feeling ill, chills. General: Reports. Pain: Complains of pain in mid-sternal area Pain radiates to left arm Pain currently is 7 out of 10 on a pain scale. Quality of pain is described as aching, heavy, Pain began 2-3 days ago. Is intermittent, Also complains of nausea, diaphoresis, Goal of pain control is to sleep comfortably, perform activities of daily living. Neuro: Level of Consciousness is awake, alert, Oriented to person, place, time, Denies weakness blurred vision dizziness, numbness. Cardiovascular: Reports chest pain, diaphoresis, nausea, vomiting, Denies lightheadedness, palpitations, syncope, Heart tones present Bruits absent Capillary refill < 3 seconds Pulses are all present. Edema is absent. Respiratory: Airway is patent Trachea midline Respiratory effort is even, Respiratory pattern is regular, symmetrical, Breath sounds are clear bilaterally. GI: No signs and/or symptoms were reported involving the gastrointestinal system. : No signs and/or symptoms were reported regarding the genitourinary system. EENT: No signs and/or symptoms were reported regarding the EENT system. Derm: No signs and/or symptoms reported regarding the dermatologic system. Musculoskeletal: No signs and/or symptoms reported regarding the musculoskeletal system. 12:30 Reassessment: No changes from previously documented assessment. Patient and/or family tr5 updated on plan of care and expected duration. Pain level reassessed. 13:52 Reassessment: pt reports CP that is a 4/10 at this time, reports having nausea as well, sg notified, orders received for Morphine 4 mg and Zofran 4 mg IVP, pt medicated see EMAR. 13:54 Reassessment: Patient states symptoms have improved. tr5 13:59 Reassessment: Pt requests to use the bathroom. Pt ambulates to bathroom unassisted tr5 without difficulty. 14:00 Reassessment: Pt is in bed with family and watching tv. Pt comfortable and awaiting tr5 transfer. Vital Signs: 08:28 BP 151 / 100; Pulse 82; Resp 18 S; Temp 98.0; Pulse Ox 100% on R/A; Weight 97.52 kg; iw Height 5 ft. 5 in. (165.10 cm); Pain 7/10; 10:00 BP 144 / 90; Pulse 79; Resp 19; Pulse Ox 100% ; tr5 11:15 BP 130 / 86; Pulse 82; Resp 19; Pulse Ox 99% on R/A; tr5 12:15 BP 155 / 110; Pulse 75; Resp 20; Pulse Ox 99% on R/A; tr5 13:48 BP 127 / 83; Pulse 78; Resp 20; Pulse Ox 99% on R/A; tr5 08:28 Body Mass Index 35.78 (97.52 kg, 165.10 cm) iw ED Course: 08:10 Patient arrived in ED. tw3 08:24 Maury Mendieta MD is Attending Physician. chas 08:26 Soham Phillip, RN is Primary Nurse. sg 08:27 Triage completed. iw 08:28 Arm band placed on. iw 08:45 Patient has correct armband on for positive identification. Bed in low position. Call sg light in reach. Side rails up X2. front desk monitor on. Pulse ox on. NIBP on. Warm blanket given. Head of bed elevated. 08:53 Lance Franco MD is Hospitalizing Provider. chas 09:01 Radiology exam delayed due to PT NOT IN ED ROOM WHEN CXR WAS ATTEMPTED. sw 09:05 CT Head Brain wo Cont In Process Unspecified. EDMS 09:[address] via stretcher. jg6 09:57 X-ray completed. Portable x-ray completed in exam room. Patient tolerated procedure jb2 well. 09:59 XRAY Chest (1 view) In Process Unspecified. EDMS 10:07 Inserted saline lock: 22 gauge in left antecubital area, using aseptic technique. tr5 10:51 EKG done, by budget technician. reviewed by Maury Mendieta MD. at1 14:02 No provider procedures requiring assistance completed. tr5 14:42 Repeat lab(s) drawn. by ED staff, sent to lab. tr5 15:08 Patient admitted, IV remains in place. intact, No redness/swelling at site. tr5 Administered Medications: 10:04 Drug: Lovenox 1 mg/kg Route: Sub-Q; Site: abdomen; tr5 10:30 Follow up: Response: No adverse reaction tr5 10:05 Drug: morphine 4 mg Route: IVP; Site: left antecubital; tr5 10:30 Follow up: Response: Pain is decreased tr5 10:05 Drug: Zofran 4 mg Route: IVP; Site: left antecubital; tr5 10:30 Follow up: Response: Nausea is decreased tr5 10:05 Drug: Aspirin 162 mg Route: PO; tr5 10:30 Follow up: Response: No adverse reaction tr5 10:06 Drug: NS 0.9% 1000 ml Route: IV; Rate: 125 ml/hr; Site: left antecubital; tr5 11:00 Follow up: IV Status: Completed infusion tr5 13:40 Drug: morphine 4 mg Route: IVP; Site: left forearm; sg 14:03 Follow up: Response: Pain is decreased tr5 13:40 Drug: Zofran 4 mg Route: IVP; Site: left forearm; sg 14:03 Follow up: Response: Nausea is decreased tr5 Outcome: 08:53 Decision to Hospitalize by Provider. chas 15:07 Admitted to Tele accompanied by [place], via wheelchair, room 426, with chart, Report tr5 called to Kofi SALINAS 15:07 Condition: stable 15:07 Instructed on follow up and referral plans. the need for admit, safety practices, Demonstrated understanding of instructions, follow-up care. 15:45 Patient left the ED. iw Signatures: Dispatcher [employer] EDMS Soham Phillip, RN Maury Viera MD MD cha Buechter, Jesse jb2 Letha Coppola RN RN iw Rhiannon Guo, cardiovascular tech EKG Tat1 Aileen Trinidad, Mikayla tw3 Karis Ramsey jg6 Bubba Abarca, RN RN tr5 Corrections: (The following items were deleted from the chart) 13:49 13:48 BP 155 / 110; Pulse 75bpm; Resp 20bpm; Pulse Ox 99% RA; tr5 tr5 14:02 13:59 Reassessment: Pt requests to use the bathroom. Pt ambulates to bathroom tr5 unassisted without difficulty. tr5
--- NOTE | 2018-08-01 09:19 | RAD REPORT ---
EXAM DESCRIPTION: CT - Head Brain Wo Cont - 08/01/2018 9:04 am CLINICAL HISTORY: Headache COMPARISON: CT imaging March 2009 TECHNIQUE: Axial 5 mm thick images of the head were obtained without IV contrast. All CT scans are performed using dose optimization technique as appropriate and may include automated exposure control or mA/KV adjustment according to patient size. FINDINGS: No intracranial hemorrhage. No edema or shift of midline structures. Approximately 10 mill imeter x 8 millimeter fat attenuation mass is present at the left cerebellopontine angle. This is mos t likely a dermoid cyst or possibly lipoma. No clear change from the 2010 study. No acute cortical based infarction. No cortical edema or sulcal effacement. No abnormal extra-axial fluid collections. Ventricles are normal. Mastoid air cells and visualized portions of the paranasal sinuses are clear. No acute bony findings. IMPRESSION: No acute intracranial finding identified. Patient has a 10 x 8 millimeter fatty mass at the left cerebellopontine angle that has not changed si nce 2009.
[2018-08-01] MEDS ORDERED: MORPHINE 4 MG/ML SYR ONE ×2 (09:38→13:52)
[2018-08-01] MEDS ORDERED: ASPIRIN 81 MG CHEWABLE TABLET ONE (09:38)
[2018-08-01] MEDS ORDERED: ONDANSETRON 4 MG/2 ML VIAL ONE ×2 (09:39→13:53)
[2018-08-01] MEDS ORDERED: ENOXAPARIN 100 MG/ML SYR SQ ONE (09:39)
--- NOTE | 2018-08-01 09:54 | EKG ---
Test Date: 2018-08-01 Test Time: 08:29:09 Cutter Grinder: JASON MEASUREMENT RESULTS: Intervals: Rate: 82 CA: 136 QRSD: 108 QT: 368 QTc: 429 [place]: P: 18 CA: 136 QRS: -60 T: 55 INTERPRETIVE STATEMENTS: Normal sinus rhythm Left anterior fascicular block Cannot rule out Anterior infarct, age undetermined Abnormal ECG Compared to ECG 11/04/2017 18:27:16 Incomplete right bundle-branch block no longer present Myocardial infarct finding still present Electronically Signed On 08-01-18 09:53:17 CDT by Emil Cobos
[2018-08-01 10:00] LABS: Absolute Monocytes 0.4 K/uL (0.1-1.3); Absolute Neutrophil 5.1 K/uL (1.8-8.0); Basophils % 0.4 % (0-1.3); Eosinophils % 1.1 % (0-4.4); Hematocrit 51.4 % (39.6-49.0); Lymphocytes % 15.7 % (15.3-44.8); Monocytes % 5.7 % (3.3-12.3); RBC Red Blood Cell Count 5.79 M/uL (4.33-5.43)
[2018-08-01 10:03] LABS: Protime INR 0.92
--- NOTE | 2018-08-01 10:19 | RAD REPORT ---
EXAM DESCRIPTION: [place] Single View08/01/2018 9:57 am CLINICAL HISTORY: Chest pain COMPARISON: October 2017 FINDINGS: A 5 millimeter nodular density overlies the right lung base. Left lung appears clear The heart is mildly enlarged. Postsurgical changes involve the chest. IMPRESSION: 5 millimeter nodular opacity overlying the right lung base may represent a pulmonary nod ule or confluence of ribs and vessels. Followup PA and lateral chest series recommended in 3 months f or re-evaluation
[2018-08-01 10:27] LABS: ALT/SGPT 27 U/L (12-78); AST/SGOT 20 U/L (15-37); Albumin 4.2 g/dL (3.4-5.0); Alkaline Phosphatase 89 U/L (45-117); BUN Blood Urea Nitrogen 15 mg/dL (7-18); Bicarbonate 27 mmol/L (21-32); Bilirubin Direct < 0.1 mg/dL (0-0.2); Bilirubin Total 0.3 mg/dL (0.2-1.0); Glucose Level 124 mg/dL (74-106); Lipase 311 U/L (73-393); Magnesium 1.9 mg/dL (1.8-2.4); NT PRO-BNP 482 pg/mL (<125); Potassium 4.5 mmol/L (3.5-5.1); Protein, Total 9.3 g/dL (6.4-8.2); Sodium Level 137 mmol/L (136-145); Troponin (Emerg Dept Use Only) < 0.02 ng/mL (0.0-0.045)
[2018-08-01 13:27] LABS: Urine Blood TRACE (NEG); Urine Glucose NEGATIVE (NEG); Urine pH 5.5 (5.0-7.0)
[2018-08-01 13:28] LABS: Urine Protein 1+ (NEG)
[2018-08-01] MEDS ORDERED: NITROGLYCERIN 0.4 MG/TAB SL PRN (15:21)
[2018-08-01 15:48] VITALS: BMI 35.7
[2018-08-01] MEDS: INSULIN -REGULAR HUMAN 50 UNIT/0.5 ML ML SQ SCH ×2 (16:07→21:00)
[2018-08-01 16:15] LABS: Absolute Lymphocytes (CBC) 1.7 K/uL (0.7-4.9); Absolute Monocytes 0.5 K/uL (0.1-1.3); Absolute Neutrophil 3.6 K/uL (1.8-8.0); Basophils % 0.4 % (0-1.3); Eosinophils % 1.6 % (0-4.4); Lymphocytes % 29.5 % (15.3-44.8); MPV 7.9 fL (7.6-11.3); RBC Red Blood Cell Count 5.27 M/uL (4.33-5.43)
[2018-08-01 16:37] LABS: Potassium 4.6 mmol/L (3.5-5.1)
[2018-08-01 16:51] LABS: Urine Appearance CLEAR; Urine Bilirubin NEGATIVE (NEG); Urine Blood TRACE (NEG); Urine Color YELLOW; Urine Glucose NEGATIVE (NEG); Urine Protein 1+ (NEG); Urine Urobilinogen 0.2 mg/dL (0.2-1.0); Urine pH 5.5 (5.0-7.0)
[2018-08-01 17:01] LABS: Urine Microscopic Reflex ORDER UMIC
[2018-08-01 17:47] LABS: Urine Bacteria NONE SEEN /HPF (NONE SEEN); Urine Culture Reflex Order NOT NEEDED; Urine RBC <5 /HPF (NONE SEEN)
--- NOTE | 2018-08-01 18:57 | P.HP ---
Certification for Inpatient Patient admitted to: Observation Practitioner: I am a practitioner with admitting privileges, knowledge of patient current condition, hospital course, and medical plan of care. Services: Services provided to patient in accordance with Admission requirements found in Title 42 Section 412.3 of the Code of Federal Regulations Patient History Date of Service: 08/01/18 Reason for admission: Chest pain History of Present Illness: This is a 53-year-old male with history of hypertension, coronary artery disease with coronary stent, CABG, diabetes and hyperlipidemia admitted for chest pain. Per patient, chest pain started this morning, described as it as pressure in the substernal region without any radiation. No alleviating or exacerbating factors. Rates it as 7/10 pain. Associated with vomiting and shortness of breath. This pain started while he was sitting/resting. The pain got progressively worse, not relieved by aspirin or other medications of his. Therefore we asses to bring him to the ER. Adenoma the 51/100, heart rate of 82, afebrile, 100% on room air with a BMI of 35. His lab work was unremarkable, with a troponin negative x1. His chest x- ray with 5 mm nodular opacity questionable pulmonary nodule versus confluence of ribs vessels. CT head with a 10 x 8 mm fatty mass at left cerebellopontine angle that has not changed from prior studies. He received aspirin, Lovenox, morphine and IV fluids in the ER. The time of my exam, patient was alert oriented x3, in no acute distress, hemodynamically stable with blood pressure of 145/104 heart rate of 90. He was admitted for chest pain rule out due to his high risk factors. HEART score of 5, moderate risk. Allergies No Known Drug Allergies Allergy (Verified 07/29/15 05:14) Unknown No Known Allergies Allergy (Uncoded 04/17/16 07:21) Unknown Home medications list reviewed: Yes Home Medications: Amlodipine Besylate [Norvasc] 10 mg PO DAILY 11/17/11 Clopidogrel Bisulfate [Plavix] 75 mg PO DAILY 11/17/11 ALPRAZolam [Xanax*] 0.25 mg PO TID PRN 03/21/14 Atorvastatin Calcium 10 mg PO DAILY 03/21/14 Carisoprodol [Soma*] 350 mg PO QID PRN 03/21/14 Insulin Glargine,Hum.rec.anlog [Lantus] 58 unit SQ BEDTIME 03/22/14 Aspirin [Aspirin EC 81 MG] 81 mg PO DAILY 12/28/14 Bimatoprost [[place] Opthalmic Drops*] 1 drop OP BEDTIME 12/28/14 Hydrocodone 10/APAP 325 [[place] 10/325*] 1 tab PO Q6H PRN 01/22/15 Albuterol Sulfate [Proair Hfa] 2 puff IH QID PRN 03/18/15 Liraglutide [Victoza 2-Imer] 1.8 mg SQ DAILY 03/18/15 Metoprolol Tartrate 100 mg PO BID 11/04/17 - Past Medical/Surgical History Has patient received pneumonia vaccine in the past: No Diabetic: Yes -: X3 MIs -: IDDM -: chronic back pain -: cataracts -: glaucoma rt eye -: cellulitis -: staph infection with CABG -: Glaucoma -: Staph infection wound chest -: cardiac cath -: lumbar epidural injection x3 -: CABG (May 29 2014) x 4 vessels -: cardiac stents 01/06 - Family History Mother -: Heart disease, Diabetes Father -: Stroke, Cancer Notes: Multiple CANCER Sister -: Cancer Notes: liver - Social History Smoking Status: Never smoker Alcohol use: No CD- Drugs: No Caffeine use: Yes Place of Residence: Home Review of Systems 10-point ROS is otherwise unremarkable Physical Examination - Vital Signs Temperature: 96.9 F Blood Pressure: 141/96 Pulse: 76 Respirations: 19 Pulse Ox (%): 99 - Physical Exam General: Alert, In no apparent distress, Oriented x3 HEENT: Atraumatic, PERRLA, Mucous membr. moist/pink, EOMI, Sclerae nonicteric Neck: Supple, 2+ carotid pulse no bruit, No LAD, Without JVD or thyroid abnormality Respiratory: Clear to auscultation bilaterally, Normal air movement Cardiovascular: Regular rate/rhythm, Normal S1 S2 Gastrointestinal: Normal bowel sounds, No tenderness Musculoskeletal: No tenderness Integumentary: No rashes Neurological: Normal gait, Normal speech, Normal strength at 5/5 x4 extr, Normal tone, Normal affect Lymphatics: No axilla or inguinal lymphadenopathy - Studies Laboratory Data (last 24 hrs) 08/01/18 09:40: PT 10.9, INR 0.92 08/01/18 09:40: WBC 6.6, Hgb 17.9, Hct 51.4 H, Plt Count 220 08/01/18 09:40: Sodium 137, Potassium 4.5, BUN 15, Creatinine 1.04, Glucose 124 H, Magnesium 1.9, Total Bilirubin 0.3, AST 20, ALT 27, Alkaline Phosphatase 89, Lipase 311 Assessment and Plan - Problems (Diagnosis) (1) Angina at rest Current Visit: Yes Status: Acute Plan: Initiate chest pain guidelines beta-michelle, aspirin, Plavix, statin. Morphine and nitro as needed for pain. Cardiology consulted, waiting recommendations. Echo ordered, pending Trend troponin (2) Diabetes mellitus Onset Date: 05/23/14 Current Visit: No Status: Chronic Plan: Accu-Cheks and mild sliding scale insulin. Will resume home medications once reconciled. Will continue to monitor and adjust as needed. 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 Will resume home medications once reconciled. (4) Hypercholesterolemia Onset Date: 12/31/14 Current Visit: No Status: Chronic (5) Coronary artery disease Onset Date: 12/31/14 Current Visit: No Status: Chronic Plan: Patient with history of coronary artery stent and LAD, and quadruple bypass. Qualifiers: Coronary Disease-Associated Artery/Lesion type: bypass graft [place] vs. transplanted heart: [place] heart Associated angina: with unstable angina Qualified Code(s): I25.700 - Atherosclerosis of coronary artery bypass graft(s) , unspecified, with unstable angina pectoris (6) Obesity (BMI 30-39.9) Current Visit: No Status: Acute (7) Abnormal chest x-ray Current Visit: Yes Status: Acute Plan: Patient with a 5 mm nodular opacity concerning for a pulmonary nodule versus confluence of rib is/vessels. Recommend patient to get a follow up chest x-ray in 3 months. - Plan DVT prophylaxis: Aspirin/Plavix GI prophylaxis: None Diet: Heart healthy, NPO after midnight Disposition: Admit to floor, pending cardiac evaluation Discharge Plan: Home - Advance Directives Does patient have a Living Will: No Does patient have a Durable POA for Healthcare: No Time Spent Managing Pts Care (In Minutes): 55
[2018-08-01] MEDS: MORPHINE 4 MG/ML SYR IV PRN ×2 (19:48→23:58)
[2018-08-01] MEDS ORDERED: ATORVASTATIN 40 MG TAB PO SCH (21:00)
[2018-08-01] MEDS: METOPROLOL TAR 25 MG TAB PO SCH (21:23)
[2018-08-01] MEDS: CARISOPRODOL 350 MG TAB PO PRN (21:24)
[2018-08-02 04:46] VITALS: O2SAT 99
[2018-08-02] MEDS: MORPHINE 4 MG/ML SYR IV PRN (04:59)
[2018-08-02] MEDS: CARISOPRODOL 350 MG TAB PO PRN (05:03)
[2018-08-02] MEDS: INSULIN -REGULAR HUMAN 50 UNIT/0.5 ML ML SQ SCH (07:30)
[2018-08-02] MEDS ORDERED: CLOPIDOGREL 75 MG TABLET PO SCH (09:00)
[2018-08-02] MEDS ORDERED: ASPIRIN EC 81 MG TAB PO SCH (09:00)
[2018-08-02] MEDS ORDERED: LISINOPRIL 10 MG TAB PO SCH (09:00)
[2018-08-02] MEDS: METOPROLOL TAR 25 MG TAB PO SCH (09:00)
[2018-08-02 10:18] VITALS: BP 107/69; TEMP 97
--- NOTE | 2018-08-02 13:19 | ECHO ---
HEIGHT: 5 ft 5 in WEIGHT: 215 lb 0 oz DATE OF STUDY: 08/02/[address]: Lance Franco MD 2-DIMENSIONAL: YES M.MODE: YES DOPPLER: YES COLOR FLOW: YES TDS: YES PORTABLE: NO DEFINITY: NO BUBBLE STUDY: NO DIAGNOSIS: ANGINA CARDIAC HISTORY: CATHERIZATION: NO SURGERY: NO PROSTHETIC VALVE: NO PACEMAKER: NO MEASUREMENTS (cm) DIASTOLIC (NORMALS) SYSTOLIC (NORMALS) IVSd 1.1 (0.6-1.2) LA Diam 4.2 (1.9-4.0) LVEF 64% LVIDd 4.5 (3.5-5.7) LVIDs 2.9 (2.0-3.5) %FS 35% LVPWd 1.1 (0.6-1.2) Ao Diam 2.4 (2.0-3.7) 2 DIMENSIONAL ASSESSMENT: RIGHT ATRIUM: NORMAL LEFT ATRIUM: DILATED RIGHT VENTRICLE: NORMAL LEFT VENTRICLE: NORMAL TRICUSPID VALVE: NORMAL MITRAL VALVE: NORMAL PULMONIC VALVE: NORMAL AORTIC VALVE: NORMAL PERICARDIAL EFFUSION: NONE AORTIC ROOT: NORMAL LEFT VENTRICULAR WALL MOTION: NORMAL. DOPPLER/COLOR FLOW: NORMAL. COMMENTS: NORMAL LEFT VENTRICULAR SIZE AND EJECTION FRACTION. LEFT ATRIAL ENLARGEMENT. NO WALL MOTION ABNORMALITIES. NO EFFUSION. TECHNOLOGIST: NIR AMOS RDCS
--- NOTE | 2018-08-02 23:09 | CON ---
Date of Consultation: 08/02/[address] Franco's service on 08/01/2018. I saw the patient on 08/02/2018. Reason For Consultation: History of coronary artery disease and chest pain. History Of Present Illness: Mr. Schultz is a 53-year-old [place] male, very well known to me f rom office visits and hospital admissions. He has a complicated past medical history. He has a hist ory of coronary artery disease. He had a CABG; however, his FLOYD failed rather quickly, so I put a p roximal and a mid LAD stent in him. He has a normal circumflex. He had a totally occluded RCA with a good vein graft. The last time I did a catheterization was in December 2015, where I found that hi s LAD stents were patent, his circumflex was normal, RCA graft was patent, RCA [place] was completely occluded. He has since had a negative stress test in the office about a year ago. He comes in with substernal chest pain radiating to the back. No nausea, no diaphoresis or shortness of breath. Jean ed PND, orthopnea, pedal edema, palpitations, or syncope. By the time I saw him, he has already rule d out for an NV. The chest x-ray and EKG were normal. Past Medical History: Includes CAD, ADD, anxiety, diabetes, gastroesophageal reflux disease, dyslipi demia, and hypertension. Allergies: NONE. Review of Systems: Negative. Social History: Negative. Family History: Positive for heart disease. Medications At Home: Include insulin, lisinopril, metoprolol, aspirin, Lipitor, Plavix, and Xanax. Physical Examination: General: By the time I saw him, he was pain free. Vital Signs: Stable, afebrile. HEENT: Negative. Neck: Supple with no bruit, lymphadenopathy, JVD, or thyromegaly. Chest: Clear to auscultation and percussion. Cardiac: Exam revealed a regular rhythm and rate. No murmurs, gallops, or rubs. Abdomen: Benign. Extremities: Revealed no clubbing, cyanosis, or edema. Diagnostic Data: Within normal limits. Impression And Plan: 1.Unstable angina. 2.Coronary artery disease, status post CABG and stent. 3.Diabetes. 4.Gastroesophageal reflux disease. 5.Dyslipidemia. 6.Hypertension. I recommended a heart catheterization for Mr. Schultz. He wants to think about sche duling that in the near future and he will call me. His echocardiogram is normal. I suggest we incr ease his Lopressor from 100 b.i.d. to 100 three times a day, and I will see him in the office in the near future. He is intolerant to Imdur or Ranexa. PATRICIA/CORTES Voice ID: [id number] Report ID: [id number]
--- NOTE | 2018-08-02 23:53 | DS ---
Date of Discharge: 08/02/2018 [employer]: Dr. Brush. Procedures: None. Discharge Diagnoses: 1.Unstable angina. 2.Diabetes mellitus, type 2, with long-term use of insulin with hyperglycemia. 3.Essential hypertension. 4.Mixed hyperlipidemia. 5.Coronary artery disease, [place] artery, [place] heart, status post CABG with angina, unstable. 6.Obesity, BMI 35. 7.Abnormal chest x-ray with 5 mm nodular opacity present. 8.Glaucoma. 9.Chronic back pain, midline, without sciatica. Hospital Course: The patient is a 53-year-old male with past medical history of coronary artery dise ase, status post stent, CABG, hypertension, diabetes, hyperlipidemia, obesity, comes in with recurren t chest pain. The patient states that he has been diagnosed with pericarditis in the past as well. His bypass was 4 years ago. The patient has been seeing Dr. Brush, however, has been refusing repe at cardiac catheterization. The patient was started on chest pain guidelines. His workup revealed n egative cardiac enzymes and ACS was ruled out. He continued to have episodic chest pains, which impr mehrdad over the course of the hospital stay. His lipid panel showed elevated triglycerides at 188. Th e patient's diabetes was well controlled with blood sugar in the 120s to 70s. His urine culture did not show any growth. The patient was seen by [facility], Dr. Brush. Echocardiogram was obtained , which showed an EF of 64%, left atrial enlargement. There was no wall motion abnormality or effusi on. The patient was then cleared for discharge from Cardiology standpoint to follow up with Cardiolo gy as an outpatient. Dr. Brush recommended increasing the metoprolol dose to 100 mg t.i.d. The pa pete was then discharged home. Condition: Stable. Activity: As tolerated. Medications: As per medication reconciliation list. Followup: Follow up with primary care physician in 2-3 days. Follow up with [facility], Dr. Hilary mann, in 2 weeks. Return to ER for worsening condition. Diet: Diabetic. Physical Examination: General: Awake, alert, oriented x3. No acute distress, obese male. CV: S1, S2. No murmurs. Respiratory: Moving air well bilaterally. No wheezing. Gastrointestinal: Abdomen is soft, nontender, nondistended. Positive bowel sounds. Extremities: No clubbing, cyanosis, or edema. Neuro: Nonfocal. SA/MODL Voice ID: [id number] Report ID: [id number]
== END 2018-08-02 11:31 | disposition home or self-care (01) ==
LOC: ER 08:08 → ERHOLD 11:48 → 4TH 15:07
PROVIDERS: ADMIT Family Medicine; ATTEND Family Medicine
DX: I25.110 Atherosclerotic heart disease of native coronary artery with unstable angina pectoris (principal); E11.65 Type 2 diabetes mellitus with hyperglycemia; I10 Essential (primary) hypertension; E78.2 Mixed hyperlipidemia; H40.9 Unspecified glaucoma; M54.9 Dorsalgia, unspecified; G89.29 Other chronic pain; R91.8 Other nonspecific abnormal finding of lung field; E66.9 Obesity, unspecified; Z68.35 Body mass index [BMI] 35.0-35.9, adult; K21.9 Gastro-esophageal reflux disease without esophagitis; F98.8 Other specified behavioral and emotional disorders with onset usually occurring in childhood and adolescence; F41.9 Anxiety disorder, unspecified; I25.2 Old myocardial infarction; Z79.4 Long term (current) use of insulin; Z79.02 Long term (current) use of antithrombotics/antiplatelets; Z79.82 Long term (current) use of aspirin; Z79.899 Other long term (current) drug therapy; Z95.1 Presence of aortocoronary bypass graft; Z95.5 Presence of coronary angioplasty implant and graft
CPT/HCPCS: 93005; 93306; 87088; 85025 ×2; 87086; 80048 ×2; 36415; 83735; 85610; 80061; 82962 ×3; 80076; 84484 ×4; 83690; 83880; 70450; 71045; 94760 ×2; 96372; 99285; J1650; J7030; J2405 ×2; G0378 ×2; 81003; 81015

== ENCOUNTER 2018-12-05 18:27 | Observation (INO) | payer OTHER ==
[2018-12-05 18:56] LABS: Absolute Lymphocytes (CBC) 2.4 K/uL (0.7-4.9); Basophils % 0.7 % (0-1.3); Lymphocytes % 34.9 % (15.3-44.8); MPV 8.1 fL (7.6-11.3); Protime INR 1.02; RBC Red Blood Cell Count 5.05 M/uL (4.33-5.43)
[2018-12-05 19:08] LABS: ALT/SGPT 28 U/L (12-78); AST/SGOT 20 U/L (15-37); Albumin 3.6 g/dL (3.4-5.0); Alkaline Phosphatase 81 U/L (45-117); BUN Blood Urea Nitrogen 25 mg/dL (7-18); Bicarbonate 25 mmol/L (21-32); Bilirubin Direct < 0.1 mg/dL (0-0.2); Bilirubin Total 0.2 mg/dL (0.2-1.0); Glucose Level 256 mg/dL (74-106); Magnesium 1.6 mg/dL (1.8-2.4); NT PRO-BNP 1097 pg/mL (<125); Potassium 4.2 mmol/L (3.5-5.1); Protein, Total 7.9 g/dL (6.4-8.2); Sodium Level 133 mmol/L (136-145); Troponin (Emerg Dept Use Only) < 0.02 ng/mL (0.0-0.045)
[2018-12-05] MEDS ORDERED: MORPHINE 4 MG/ML SYR ONE (19:11)
[2018-12-05] MEDS ORDERED: ONDANSETRON 4 MG/2 ML VIAL ONE (19:11)
--- NOTE | 2018-12-05 19:16 | RAD REPORT ---
EXAM DESCRIPTION: RAD - Chest Single View - 12/05/2018 7:09 pm CLINICAL HISTORY: CHEST PAIN Chest pain. COMPARISON: Chest Single View dated 08/01/2018; Chest Single View dated 11/04/2017; Chest Single View dated 03/01/2017; Chest Single View dated 11/27/2016 FINDINGS: Portable technique limits examination quality. The lungs are grossly clear. The heart is upper limit normal in size. No displaced fractures.Sternoto my wires present. IMPRESSION: No acute intrathoracic process suspected.
--- NOTE | 2018-12-05 19:24 | EDPHYS ---
Physician Documentation [facility] Name: Jorge Schultz Jr Age: 53 yrs Sex: Male : 1965 Arrival Date: 12/05/2018 Time: 18:28 Bed 7 Private MD: Felipe Sinha ED Physician Kylee Carballo HPI: 12/05 19:13 This 53 yrs old Male presents to ER via Ambulatory with complaints of Chest ma2 Pain. 19:13 The patient or guardian reports chest pain that is located primarily in the substernal ma2 area. Onset: gradually, 1 day(s) ago. Associated signs and symptoms: Pertinent positives: Pertinent negatives: abdominal pain, diaphoresis, lower extremity swelling, lightheadedness. Duration: The patient or guardian reports a single episode. Severity of pain: At its worst the pain was mild in the emergency department the pain has resolved. Historical: - Allergies: 18:44 No Known Allergies; rv - Home Meds: 18:44 Metoprolol Tartrate Oral [Active]; metformin 500 mg Oral Tb24 1 tab 2 times per day rv [Active]; Plavix 75 mg Oral tab 1 tab once daily [Active]; aspirin 81 mg oral TbEC 1 tab once daily [Active]; - PMHx: 18:44 ADD/ADHD; Anxiety; CAD; Diabetes - NIDDM; GERD; Glaucoma; High Cholesterol; rv Hypertension; Myocardial infarction; - PSHx: 18:44 CABG; rv - Immunization history:: Adult Immunizations. - Social history:: Smoking status: Patient/guardian denies using alcohol, street drugs, The patient lives with family. - Ebola Screening: : Patient denies travel to an Ebola-affected area in the 21 days before illness onset. - Family history:: not pertinent. ROS: 19:13 Constitutional: Negative for fever, chills, and weight loss. ma2 19:13 All other systems are negative. Exam: 19:13 Constitutional: This is a well developed, well nourished patient who is awake, alert, ma2 and in no acute distress. Chest/axilla: Normal chest wall appearance and motion. Nontender with no deformity. No lesions are appreciated. Cardiovascular: Regular rate and rhythm with a normal S1 and S2. No gallops, murmurs, or rubs. Normal PMI, no JVD. No pulse deficits. Respiratory: Lungs have equal breath sounds bilaterally, clear to auscultation and percussion. No rales, rhonchi or wheezes noted. No increased work of breathing, no retractions or nasal flaring. Abdomen/GI: Soft, non-tender, with normal bowel sounds. No distension or tympany. No guarding or rebound. No evidence of tenderness throughout. Skin: Warm, dry with normal turgor. Normal color with no rashes, no lesions, and no evidence of cellulitis. Neuro: Awake and alert, GCS 15, oriented to person, place, time, and situation. Cranial nerves II-XII grossly intact. Motor strength 5/5 in all extremities. Sensory grossly intact. Cerebellar exam normal. Normal gait. Vital Signs: 18:39 BP 155 / 99; Pulse 80; Resp 22; Pulse Ox 99% on R/A; tw2 18:41 Temp 98.1(O); Weight 97.52 kg; Height 5 ft. 5 in. (165.10 cm); Pain 6/10; rv 19:10 BP 147 / 96; Pulse 76; Resp 20; Pulse Ox 98% on R/A; Pain 8/10; lp1 20:30 BP 151 / 92; Pulse 83; Resp 20; Pulse Ox 98% on R/A; lp1 18:41 Body Mass Index 35.78 (97.52 kg, 165.10 cm) rv MDM: 18:29 Patient medically screened. ma2 19:13 Differential diagnosis: anxiety, coronary artery disease chest wall pain, ma2 gastroesophageal reflux disease (GERD), stable angina. HEART Score: History: Moderately Suspicious (1), ECG: Normal (0), Age: > 45 and < 65 years (1), Troponin: < or = 1 x Normal Limit (0). The patient was given aspirin in the Emergency Department. Data reviewed: vital signs, nurses notes, old medical records, EKG, radiologic studies. 19:22 Counseling: I had a detailed discussion with the patient and/or guardian regarding: the ma2 historical points, exam findings, and any diagnostic results supporting the discharge/admit diagnosis, the presence of at least one elevated blood pressure reading (>120/80) during this emergency department visit, the need for further work-up and treatment in the hospital. 12/05 18:29 Order name: Basic Metabolic Panel; Complete Time: 19:10 ma2 12/05 18:29 Order name: CBC with Diff; Complete Time: 19:10 ma2 12/05 18:29 Order name: LFT's; Complete Time: 19:10 ma2 12/05 18:29 Order name: Magnesium; Complete Time: 19:10 ma2 12/05 18:29 Order name: NT PRO-BNP; Complete Time: 19:10 ma2 12/05 18:29 Order name: PT-INR; Complete Time: 19:10 ma2 12/05 18:29 Order name: Troponin (emerg Dept Use Only); Complete Time: 19:10 ma2 12/05 18:29 Order name: XRAY Chest (1 view) ma2 12/05 18:29 Order name: EKG; Complete Time: 18:30 ma2 12/05 18:29 Order name: Cardiac monitoring; Complete Time: 18:39 ma2 12/05 18:29 Order name: EKG - Nurse/Tech; Complete Time: 18:39 ma2 12/05 18:29 Order name: IV Saline Lock; Complete Time: 18:39 ma2 12/05 18:29 Order name: Labs collected and sent; Complete Time: 18:39 ma2 12/05 18:29 Order name: O2 Per Protocol; Complete Time: 18:39 ma2 12/05 18:29 Order name: O2 Sat Monitoring; Complete Time: 18:39 ma2 Administered Medications: 19:15 Drug: morphine 4 mg {Note: RASS 0.} Route: IVP; Site: left wrist; lp1 19:47 Follow up: Response: Pain is decreased; RASS: Alert and Calm (0) lp1 19:15 Drug: Zofran 4 mg Route: IVP; Site: left wrist; lp1 19:47 Follow up: Response: No adverse reaction lp1 19:45 Drug: Aspirin Chewable Tablet 324 mg Route: PO; lp1 20:48 Follow up: Response: No adverse reaction lp1 Disposition: 12/05/18 19:23 Hospitalization ordered by Bradly Agosto for Observation. Preliminary diagnosis is Chest pain, unspecified. - Bed requested for Telemetry/MedSurg (observation). - Status is Observation. lp1 - Condition is Stable. - Problem is new. - Symptoms are unchanged. UTI on Admission? No Signatures: Dispatcher [employer] EDMS Carolee Reyes RN RN Nubia Bynum RN RN lp1 Myla Tracy RN RN 2 Kylee Carballo MD MD ma2 Cristian Abebe RN RN rv Corrections: (The following items were deleted from the chart) 19:59 19:23 Hospitalization Ordered by Bradly Santos for Observation. Preliminary diagnosis mw is Chest pain, unspecified. Bed requested for Telemetry/MedSurg (observation). Status is Observation. Condition is Stable. Problem is new. Symptoms are unchanged. UTI on Admission? No. ma2 20:00 19:59 12/05/2018 19:23 Hospitalization Ordered by [facility] for Observation. mw Preliminary diagnosis is Chest pain, unspecified. Bed requested for Telemetry/MedSurg (observation). Status is Observation. Condition is Stable. Problem is new. Symptoms are unchanged. UTI on Admission? No. mw 21:01 20:00 12/05/2018 19:23 Hospitalization Ordered by [facility] for Observation. lp1 Preliminary diagnosis is Chest pain, unspecified. Bed requested for Telemetry/MedSurg (observation). Status is Observation. Condition is Stable. Problem is new. Symptoms are unchanged. UTI on Admission? No. mw
--- NOTE | 2018-12-05 19:24 | ER ---
Nurse's Notes [facility] Name: Jorge Schultz Jr Age: 53 yrs Sex: Male : 1965 Arrival Date: 12/05/2018 Time: 18:28 Bed 7 Private MD: Felipe Sinha Diagnosis: Chest pain, unspecified Presentation: 12/05 18:30 Risk Assessment: Do you want to hurt yourself or someone else? Patient reports no tw2 desire to harm self or others. Care prior to arrival: None. 18:39 Transition of care: patient was not received from another setting of care. Initial tw2 Sepsis Screen: Does the patient meet any 2 criteria? No. Patient's initial sepsis screen is negative. Does the patient have a suspected source of infection? No. Patient's initial sepsis screen is negative. 18:39 Acuity: AALIYAH 3 tw2 18:39 Method Of Arrival: Ambulatory tw2 18:40 Presenting complaint: Patient states: chest pain 6/10, sharp on midsternal and rv radiating to my back. with SOB. Onset of symptoms was December 04, 2018 at 08:00. Historical: - Allergies: 18:44 No Known Allergies; rv - Home Meds: 18:44 Metoprolol Tartrate Oral [Active]; metformin 500 mg Oral Tb24 1 tab 2 times per day rv [Active]; Plavix 75 mg Oral tab 1 tab once daily [Active]; aspirin 81 mg oral TbEC 1 tab once daily [Active]; - PMHx: 18:44 ADD/ADHD; Anxiety; CAD; Diabetes - NIDDM; GERD; Glaucoma; High Cholesterol; rv Hypertension; Myocardial infarction; - PSHx: 18:44 CABG; rv - Immunization history:: Adult Immunizations. - Social history:: Smoking status: Patient/guardian denies using alcohol, street drugs, The patient lives with family. - Ebola Screening: : Patient denies travel to an Ebola-affected area in the 21 days before illness onset. - Family history:: not pertinent. Screenin:29 Abuse screen: Denies threats or abuse. Nutritional screening: No deficits noted. tw2 Tuberculosis screening: No symptoms or risk factors identified. Fall Risk None identified. Assessment: 18:41 General: Appears in no apparent distress. comfortable, Behavior is calm, cooperative. rv Pain: Complains of pain in mid-sternal area Pain radiates to back Pain currently is 6 out of 10 on a pain scale. Quality of pain is described as sharp, Pain began suddenly, 1 day ago. Neuro: Level of Consciousness is awake, alert, obeys commands, Oriented to person, place, time, situation. Cardiovascular: Patient's skin is warm and dry. Rhythm is irregular. Cardiovascular: Chest pain is described as Pain is 6 out of 10 on a pain scale. quality is sharp, is located in chest wall radiates back began 1 day ago episodes are intermittent. Respiratory: Airway is patent. GI: No signs and/or symptoms were reported involving the gastrointestinal system. : No signs and/or symptoms were reported regarding the genitourinary system. EENT: No signs and/or symptoms were reported regarding the EENT system. Derm: Skin is intact. Musculoskeletal: No signs and/or symptoms reported regarding the musculoskeletal system. 19:07 General: Appears in no apparent distress. Pain: Complains of pain in chest Pain lp1 radiates to back Pain currently is 8 out of 10 on a pain scale. Quality of pain is described as sharp. Neuro: Level of Consciousness is awake, alert, obeys commands, Oriented to person, place, time, situation. Cardiovascular: Patient's skin is warm and dry. Respiratory: Respiratory effort is even, unlabored, Breath sounds are clear bilaterally. Derm: Skin is pink, warm \T\ dry. Musculoskeletal: No deficits noted. 19:47 Reassessment: Hospitalist at bedside. lp1 20:20 Reassessment: Attempted to call report at this time; Nurse will call back. lp1 20:46 Reassessment: Patient appears in no apparent distress at this time. Patient is alert, lp1 oriented x 3, equal unlabored respirations, skin warm/dry/pink. Patient changed back into regular clothing from gown for own comfort. Vital Signs: 18:39 BP 155 / 99; Pulse 80; Resp 22; Pulse Ox 99% on R/A; tw2 18:41 Temp 98.1(O); Weight 97.52 kg; Height 5 ft. 5 in. (165.10 cm); Pain 6/10; rv 19:10 BP 147 / 96; Pulse 76; Resp 20; Pulse Ox 98% on R/A; Pain 8/10; lp1 20:30 BP 151 / 92; Pulse 83; Resp 20; Pulse Ox 98% on R/A; lp1 18:41 Body Mass Index 35.78 (97.52 kg, 165.10 cm) rv ED Course: 18:28 Patient arrived in ED. as 18:28 Felipe Sinha MD is Private Physician. as 18:29 Cristian Abebe, RITA is Primary Nurse. rv 18:29 Kylee Carballo MD is Attending Physician. ma2 18:30 Bed in low position. Call light in reach. shelter monitor on. Pulse ox on. NIBP on. tw2 18:30 Arm band placed on. tw2 18:35 Inserted saline lock: 20 gauge in left wrist, using aseptic technique. Blood collected. tw2 Patient maintains SpO2 saturation greater than 95% on room air. 18:39 Triage completed. tw2 18:45 EKG done, by ED staff. rv 19:06 XRAY Chest (1 view) In Process Unspecified. EDOK 19:23 Bradly Agosto is Hospitalizing Provider. ma2 19:47 No provider procedures requiring assistance completed. Patient admitted, IV remains in lp1 place. Administered Medications: 19:15 Drug: morphine 4 mg {Note: RASS 0.} Route: IVP; Site: left wrist; lp1 19:47 Follow up: Response: Pain is decreased; RASS: Alert and Calm (0) lp1 19:15 Drug: Zofran 4 mg Route: IVP; Site: left wrist; lp1 19:47 Follow up: Response: No adverse reaction lp1 19:45 Drug: Aspirin Chewable Tablet 324 mg Route: PO; lp1 20:48 Follow up: Response: No adverse reaction lp1 Outcome: 19:23 Decision to Hospitalize by Provider. ma2 19:48 Condition: stable lp1 19:48 Instructed on the need for admit. 20:38 Admitted to Tele family with patient, via wheelchair, room 431, with chart, Report lp1 called to Sharita Crandall RN 21:01 Patient left the ED. lp1 Signatures: Dispatcher [employer] EDMS Kaela Newberry Laura, RN RN lp1 Myla Tracy RN RN tw2 Kylee Carballo MD MD dc2 Cristian Abebe RN RN rv
[2018-12-05] MEDS ORDERED: ASPIRIN 81 MG CHEWABLE TABLET ONE (19:40)
--- NOTE | 2018-12-05 20:07 | P.HP ---
Certification for Inpatient With expected LOS: <2 Midnights Patient will require the following post-hospital care: None Practitioner: I am a practitioner with admitting privileges, knowledge of patient current condition, hospital course, and medical plan of care. Services: Services provided to patient in accordance with Admission requirements found in Title 42 Section 412.3 of the Code of Federal Regulations Patient History Date of Service: 12/06/18 Reason for admission: Chest pain History of Present Illness: 53-year-old man with a history of coronary artery disease, status post CABG and stent in 2014, sees Dr. Brush presented to the emergency department with a complaint of chest pain of onset this evening, chest pain rated at 8/10 min maximum security, located in the left anterior chest, radiates to the back, no relieving or aggravating factors. No associated shortness of breath or diaphoresis or palpitation. Patient stated the chest pain lasted till he got to the emergency department. He had no chest pain during my examination. In the ED, initial troponin is negative, EKG demonstrated sinus rhythm with occasional PVCs, chest x-ray demonstrated no acute intrathoracic process. Patient is placed under observation for ACS rule out. Allergies No Known Drug Allergies Allergy (Verified 07/29/15 05:14) Unknown No Known Allergies Allergy (Uncoded 04/17/16 07:21) Unknown Home medications list reviewed: Yes Home Medications: Amlodipine Besylate [Norvasc] 10 mg PO DAILY 11/17/11 Clopidogrel Bisulfate [Plavix] 75 mg PO DAILY 11/17/11 Atorvastatin Calcium 20 mg PO DAILY 03/21/14 Carisoprodol [Soma*] 350 mg PO QID PRN 03/21/14 Insulin Glargine,Hum.rec.anlog [Lantus] 40 unit SQ BEDTIME 03/22/14 Aspirin [Aspirin EC 81 MG] 81 mg PO DAILY 12/28/14 Bimatoprost [Lumigan Opthalmic Drops*] 1 drop OP BEDTIME 12/28/14 Hydrocodone 10/APAP 325 [[place] 10/325*] 1 tab PO Q6H PRN 01/22/15 Liraglutide [Victoza 2-Imer] 1.8 mg SQ DAILY 03/18/15 Gabapentin 100 mg PO TID 08/01/18 Metformin HCl 1,000 mg PO BIDWM 08/01/18 Metoprolol Tartrate 100 mg PO TID #90 tablet 08/02/18 Ibuprofen 800 mg PO Q8HP PRN 12/05/18 - Past Medical/Surgical History Diabetic: Yes -: X3 MIs -: IDDM -: chronic back pain -: cataracts -: glaucoma rt eye -: cellulitis -: staph infection with CABG -: Glaucoma -: Staph infection wound chest -: cardiac cath -: lumbar epidural injection x3 -: CABG (May 29 2014) x 4 vessels -: cardiac stents 01/06 - Family History Mother -: Heart disease, Diabetes Father -: Stroke, Cancer Notes: Multiple CANCER Sister -: Cancer Notes: liver - Social History Alcohol use: No CD- Drugs: No Caffeine use: Yes Review of Systems Other: General: No fever, no malaise, no unintentional weight loss. Eyes: No eye discharge, Respiratory: No cough, no shortness of breath. CVS: No palpitation, no lightheadedness. GI: No abdominal pain, no nausea no vomit, no constipation, no diarrhea. Genitourinary: No dysuria, no urinary frequency, no incontinence, no hematuria. Musculoskeletal: No joint pains, or joint swelling, no gait instability. Neurology: No headache, no asymmetric, weakness, no problem with swallowing. Except as documented, all other systems reviewed and negative. Physical Examination - Physical Exam General: Alert, In no apparent distress, Oriented x3 HEENT: Normocephalic, PERRLA, Mucous membr. moist/pink Neck: Supple, JVD not distended, No Thyromegaly Respiratory: Clear to auscultation bilaterally, Normal air movement, Other ( Tenderness elicited on palpation of the left anterior chest wall.) Cardiovascular: No edema, Regular rate/rhythm, Normal S1 S2, No murmurs Capillary refill: <2 Seconds Gastrointestinal: Normal bowel sounds, Soft and benign, Non-distended, No tenderness Musculoskeletal: No swelling Integumentary: No rashes, No erythema Neurological: Normal strength at 5/5 x4 extr, Cranial nerves 3-12 intact - Studies Laboratory Data (last 24 hrs) 12/05/18 18:35: PT 12.0, INR 1.02 12/05/18 18:35: WBC 6.9, Hgb 15.7, Hct 45.0, Plt Count 236 12/05/18 18:35: Sodium 133 L, Potassium 4.2, BUN 25 H, Creatinine 1.24, Glucose 256 H, Magnesium 1.6 L, Total Bilirubin 0.2, AST 20, ALT 28, Alkaline Phosphatase 81 Assessment and Plan - Problems (Diagnosis) (1) Chest pain Onset Date: 07/29/15 Current Visit: No Status: Acute (2) Coronary artery disease Onset Date: 12/31/14 Current Visit: No Status: Chronic Qualifiers: Coronary Disease-Associated Artery/Lesion type: bypass graft [place] vs. transplanted heart: [place] heart Associated angina: with unstable angina Qualified Code(s): I25.700 - Atherosclerosis of coronary artery bypass graft(s) , unspecified, with unstable angina pectoris (3) Obesity (BMI 30-39.9) Current Visit: No Status: Acute (4) Hypercholesterolemia Onset Date: 12/31/14 Current Visit: No Status: Chronic (5) Hypertension Onset Date: 12/31/14 Current Visit: No Status: Chronic (6) Diabetes mellitus type 2 in obese Current Visit: Yes Status: Acute - Plan Place under observation Trend Troponin Repeat EKG in a.m. Aspirin, Plavix. Statins, metoprolol NTG prn Echocardiogram 4 months ago was unremarkable with normal EF. Continue home antihypertensives Hold metformin Manage blood sugar with insulin sliding scale. Consult to Cardiology-Dr. Brush. - Advance Directives Does patient have a Living Will: No Does patient have a Durable POA for Healthcare: No
[2018-12-05] MEDS ORDERED: NITROGLYCERIN 0.4 MG/TAB SL PRN (21:08)
[2018-12-05] MEDS ORDERED: ZOLPIDEM TARTRATE 5 MG TABLET PO PRN (21:08)
[2018-12-05] MEDS: MORPHINE 4 MG/ML SYR IV PRN (21:45)
[2018-12-05] MEDS: METOPROLOL TAR 50 MG TAB PO SCH (21:46)
[2018-12-05] MEDS: INSULIN -REGULAR HUMAN 50 UNIT/0.5 ML ML SQ SCH (22:10)
[2018-12-05 22:21] VITALS: BMI 35.1
[2018-12-06] MEDS: MORPHINE 4 MG/ML SYR IV PRN ×3 (01:26→09:48)
[2018-12-06 02:54] LABS: Absolute Lymphocytes (CBC) 2.3 K/uL (0.7-4.9); Basophils % 0.6 % (0-1.3); Hematocrit 41.9 % (39.6-49.0); Lymphocytes % 37.6 % (15.3-44.8); MPV 7.8 fL (7.6-11.3); RBC Red Blood Cell Count 4.76 M/uL (4.33-5.43)
[2018-12-06 03:11] LABS: Potassium 4.4 mmol/L (3.5-5.1)
--- NOTE | 2018-12-06 05:31 | EKG ---
Test Date: 2018-12-05 Test Time: 18:33:11 Soil Tester: RV MEASUREMENT RESULTS: Intervals: Rate: 82 MS: 144 QRSD: 100 QT: 388 QTc: 453 [place]: P: 26 MS: 144 QRS: -68 T: 13 INTERPRETIVE STATEMENTS: Sinus rhythm with occasional and consecutive premature ventricular complexes Left anterior fascicular block Cannot rule out Anterior infarct, age undetermined Abnormal ECG Compared to ECG 08/01/2018 08:29:09 Ventricular premature complex(es) now present Myocardial infarct finding still present Electronically Signed On 12-06-18 05:30:36 CDT by Emil Cobos
[2018-12-06 07:26] LABS: Urine Appearance CLEAR; Urine Bilirubin NEGATIVE (NEG); Urine Blood NEGATIVE (NEG); Urine Color YELLOW; Urine Glucose 2+ (NEG); Urine Protein TRACE (NEG); Urine Urobilinogen 0.2 mg/dL (0.2-1.0); Urine pH 5.5 (5.0-7.0)
[2018-12-06 07:27] LABS: Urine Microscopic Reflex NO UMIC
[2018-12-06] MEDS ORDERED: HYDROCODONE/APAP 10/325 TAB PO PRN (07:31)
[2018-12-06] MEDS ORDERED: CARISOPRODOL 350 MG TAB PO PRN (07:31)
[2018-12-06] MEDS: INSULIN -REGULAR HUMAN 50 UNIT/0.5 ML ML SQ SCH ×2 (08:18→12:00)
[2018-12-06] MEDS ORDERED: GABAPENTIN 100 MG CAP PO SCH (09:00)
[2018-12-06] MEDS ORDERED: CLOPIDOGREL 75 MG TABLET PO SCH (09:00)
[2018-12-06] MEDS ORDERED: AMLODIPINE 10 MG TAB PO SCH (09:00)
[2018-12-06] MEDS ORDERED: ENOXAPARIN 40 MG/0.4 ML SQ SCH (09:00)
[2018-12-06] MEDS ORDERED: ASPIRIN EC 81 MG TAB PO SCH (09:00)
[2018-12-06] MEDS ORDERED: HOME MED 1 EA UNK (Metoprolol Tartrate [Metoprolol Tartrate] 100 MG) PO SCH (09:00)
[2018-12-06 09:19] VITALS: TEMP 97
[2018-12-06 09:33] VITALS: O2SAT 98
[2018-12-06] MEDS: METOPROLOL TAR 50 MG TAB PO SCH (09:47)
--- NOTE | 2018-12-06 11:05 | P.DS ---
Admission Date: 12/05/18 Discharge Date: 12/06/18 Primary Care Provider: Dr. Mcgrath; Cardiology-Dr. Brush Disposition: ROUTINE DISCHARGE Discharge Condition: GOOD Reason for Admission: Chest pain Consultations: Cardiology-Dr. Brush Procedures: Medical Problem List: Chest pain with history of CAD/CABG Hypertension Diabetes mellitus type 2 insulin-dependent Hyperlipidemia Diabetic neuropathy with chronic pain Obesity, BMI 35 Brief History of Present Illness: 53-year-old male with history of CAD/CABG, hypertension, hyperlipidemia , diabetes and chronic pain. Patient presented to the emergency room with chest pain. Chest pain located to the left anterior chest region radiated to the back. Patient was admitted for further evaluation. Initial EKG showed no significant EKG changes. Initial troponin negative. Hospital Course: Patient presented with chest pain. Patient with history of CAD and prior CABG. Cardiac enzymes unremarkable. Patient was seen and evaluated by Cardiology. Cardiology knows the patient very well. No inpatient cardiac evaluation was required. Recommendation is for the patient to continue with his current medications and follow up with cardiology in 1-2 weeks to follow up this hospitalization. Patient will likely require outpatient cardiac workup to further address. At discharge patient will continue with aspirin 81 mg daily and Plavix 75 mg daily. Patient with history of hypertension. Blood pressure has remained stable. At discharge patient will continue with Norvasc 10 mg daily and metoprolol 100 mg 1 pill twice daily. Recommend to maintain blood pressures less 150/80. Further adjustment can be done by his PCP or cardiology. Patient with diabetes mellitus type 2 insulin dependent. Blood sugars have remained stable. At discharge patient will continue with insulin-Lantus 40 units subcu daily. Patient will also continue with metformin 1000 mg 1 pill twice daily and Victoza 1.8 mcg subcu daily. Recommend to maintain blood sugars less 140 fasting and less than 200 after meals. Further adjustment can be done by his PCP. Patient with hyperlipidemia. Patient will continue with Lipitor 20 mg daily. Patient with diabetic neuropathy and chronic pain. At discharge patient will continue his current medications of hydrocodone 10/325 mg every 6 hr as needed for pain, gabapentin 100 mg 3 times a day, and Soma 350 mg 4 times a day as needed for muscle spasm. Vital Signs/Physical Exam: Temp Pulse Resp BP Pulse Ox 97.0 F 69 17 140/89 95 12/06/18 08:00 12/06/18 09:48 12/06/18 10:18 12/06/18 09:48 12/06/18 10:18 General: Alert, In no apparent distress, Oriented x3, Cooperative HEENT: Atraumatic Neck: Supple Respiratory: Clear to auscultation bilaterally, Normal air movement Cardiovascular: Normal pulses, Regular rate/rhythm Gastrointestinal: Normal bowel sounds, Soft and benign, Non-distended, No tenderness, No masses, No rebound, No guarding Musculoskeletal: No erythema, No tenderness, No warmth Integumentary: No tenderness/swelling, No erythema, No warmth, No cyanosis Neurological: Normal speech, Normal strength at 5/5 x4 extr, Normal tone, Normal affect Laboratory Data at Discharge: WBC 6.0 K/uL (4.3-10.9) 12/06/18 02:31 Hgb 14.9 g/dL (13.6-17.9) 12/06/18 02:31 Hct 41.9 % (39.6-49.0) 12/06/18 02:31 Plt Count 215 K/uL (152-406) 12/06/18 02:31 PT 12.0 SECONDS (9.5-12.5) 12/05/18 18:35 INR 1.02 12/05/18 18:35 Sodium 135 mmol/L (136-145) L 12/06/18 02:31 Potassium 4.4 mmol/L (3.5-5.1) 12/06/18 02:31 BUN 20 mg/dL (7-18) H 12/06/18 02:31 Creatinine 1.23 mg/dL (0.55-1.3) 12/06/18 02:31 Glucose 224 mg/dL (74-106) H 12/06/18 02:31 Magnesium 1.6 mg/dL (1.8-2.4) L 12/05/18 18:35 Total Bilirubin 0.2 mg/dL (0.2-1.0) 12/05/18 18:35 AST 20 U/L (15-37) 12/05/18 18:35 ALT 28 U/L (12-78) 12/05/18 18:35 Alkaline Phosphatase 81 U/L (45-117) 12/05/18 18:35 Troponin I < 0.02 ng/mL (0.0-0.045) 12/06/18 02:31 Triglycerides 249 mg/dL (<150) H 12/06/18 02:31 Cholesterol 150 mg/dL (<200) 12/06/18 02:31 HDL Cholesterol 36 mg/dL (40-60) L 12/06/18 02:31 Cholesterol/HDL Ratio 4.17 12/06/18 02:31 Home Medications: Amlodipine Besylate [Norvasc] 10 mg PO DAILY 11/17/11 Clopidogrel Bisulfate [Plavix] 75 mg PO DAILY 11/17/11 Atorvastatin Calcium 20 mg PO DAILY 03/21/14 Carisoprodol [Soma*] 350 mg PO QID PRN 03/21/14 Insulin Glargine,Hum.rec.anlog [Lantus] 40 unit SQ BEDTIME 03/22/14 Aspirin [Aspirin EC 81 MG] 81 mg PO DAILY 12/28/14 Bimatoprost [Lumigan Opthalmic Drops*] 1 drop OP BEDTIME 12/28/14 Hydrocodone 10/APAP 325 [[place] 10/325*] 1 tab PO Q6H PRN 01/22/15 Liraglutide [Victoza 2-Imer] 1.8 mg SQ DAILY 03/18/15 Gabapentin 100 mg PO TID 08/01/18 Metformin HCl 1,000 mg PO BIDWM 08/01/18 Ibuprofen 800 mg PO Q8HP PRN 12/05/18 Metoprolol Tartrate [Metoprolol Tartrate] 100 mg PO BID 12/06/18 Patient Discharge Instructions: 1. Recommend follow up with PCP in 1 week to follow up this hospitalization. 2. Patient presented with chest pain with history of CABG. Patient seen and evaluated by Cardiology. No cardiac inpatient evaluation required. Cardiac enzymes unremarkable. Cardiology recommended to continue his current medications and follow up with cardiology within 1 week for outpatient cardiac workup. 3. Patient with diabetes, hyperlipidemia, diabetic neuropathy and chronic pain. Patient will continue with his current medications. Follow up with his PCP to further address. Diet: ADA Activity: Ad jennifer Time spent managing pt's care (in minutes): 55
--- NOTE | 2018-12-06 12:13 | EKG ---
Test Date: 2018-12-06 Test Time: 07:24:09 Sourcing Intern: JASON MEASUREMENT RESULTS: Intervals: Rate: 79 DC: 138 QRSD: 112 QT: 392 QTc: 449 [place]: P: 44 DC: 138 QRS: -73 T: 30 INTERPRETIVE STATEMENTS: Sinus rhythm with occasional premature ventricular complexes Left axis deviation Nonspecific T wave abnormality Abnormal ECG Compared to ECG 12/05/2018 18:33:11 Left-axis deviation now present T-wave abnormality now present Left anterior fascicular block no longer present Myocardial infarct finding no longer present Electronically Signed On 12-06-18 12:10:17 CDT by Eduardo Brush
[2018-12-06 13:01] VITALS: BP 118/79
[2018-12-06] MEDS ORDERED: ATORVASTATIN 20 MG TAB PO SCH (21:00)
[2018-12-06] MEDS ORDERED: INSULIN GLARGINE 100 UNITS/ML SQ SCH (21:00)
[2018-12-06] MEDS ORDERED: BIMATOPROST OPHTH DROPS/2.5 ML BTL OPTH SCH (21:00)
--- NOTE | 2018-12-07 01:30 | CON ---
Date of Consultation: 12/06/2018 Reason For Consultation: Chest pain. History Of Present Illness: Mr. Schultz is a 53-year-old [place] male with history of coronary artery disease, status post CABG. Last catheterization in 2015 showed occluded FLOYD to the LAD, pat ent stents to the LAD, normal circumflex, and occluded RCA with a normal graft to the RCA. Mr. Josh angel has been in the hospital few times with chest pain. I have recommended repeat heart catheterizatio n on him, but he is very hesitant to have that done. His symptoms are definitely atypical. There is sharp, stabbing chest pain over the left anterior wall radiating to the neck and back without any ex ertion. Denied nausea, vomiting, diaphoresis, PND, orthopnea, pedal edema, palpitations, or syncope. His last stress test in my office was in 2017. He is not compliant with follow-up and I recommende d he sees me in the near future. Past Medical History: Include hypertension, ADD, diabetes, dyslipidemia, gastroesophageal reflux dis ease, and coronary artery disease. Allergies: NONE. Review of Systems: Negative. Social History: Negative. Family History: Positive for heart disease and diabetes. Medications: At home include metoprolol 100 b.i.d., insulin, metformin, Victoza, Norvasc, aspirin, L ipitor, Plavix, Neurontin, and Soma. Physical Examination: General: He was pleasant, no acute distress. Vital Signs: Stable, afebrile. Slightly hypertensive at 149/96. HEENT: Negative. Neck: Supple without any bruit, lymphadenopathy, JVD, or thyromegaly. Chest: Clear to auscultation and percussion. Cardiac: Revealed a regular rhythm and rate with S4 gallops. No murmurs or rubs. Abdomen: Benign. Extremities: Revealed no clubbing, cyanosis, or edema. Diagnostic Data: Shows a glucose of 224. BNP was 1097. Triglyceride was 249. Troponin is negative . Creatinine is normal. Impression And Plan: 1.Atypical chest pain in a patient with documented coronary artery disease, status post coronary art jennifer bypass grafting and stents. I recommend a catheterization, but he is hesitant. I will go ahead and arrange for him for an outpatient stress test as an appointment in the near future. 2.Blood pressure is poorly controlled. I recommended observation for now on low-salt diet and candida nue metoprolol and Norvasc. 3.Attention deficit disorder. 4.Diabetes, fairly well controlled. 5.Dyslipidemia. 6.Gastroesophageal reflux disease. 7.Coronary artery disease, status post coronary artery bypass grafting and stents. Mr. Schultz from my standpoint can go home whenever it is okay with Dr. Rowell. PATRICIA/CORTES Voice ID: [id number] Report ID: [id number]
== END 2018-12-06 12:53 | disposition home or self-care (01) ==
LOC: ER 18:27 → ERHOLD 20:11 → 4TH 20:57
PROVIDERS: ADMIT Internal Medicine; ATTEND Internal Medicine
DX: R07.9 Chest pain, unspecified (principal); I25.10 Atherosclerotic heart disease of native coronary artery without angina pectoris; Z95.1 Presence of aortocoronary bypass graft; I10 Essential (primary) hypertension; E78.5 Hyperlipidemia, unspecified; E11.40 Type 2 diabetes mellitus with diabetic neuropathy, unspecified; E66.9 Obesity, unspecified; Z68.35 Body mass index [BMI] 35.0-35.9, adult
CPT/HCPCS: 93005 ×2; 85025 ×2; 80048 ×2; 36415; 83735; 85610; 80061; 82962 ×3; 80076; 81003; 84484 ×3; 83880; 71045; 94760 ×2; 96375; 96374; 99285; J1650; J2405; G0378 ×3

== ENCOUNTER 2019-10-15 10:51 | Inpatient (IN) | payer OTHER, SELFPAY ==
[2019-10-15 11:38] LABS: Absolute Lymphocytes (CBC) 0.4 K/uL (0.7-4.9); Hematocrit 45.9 % (39.6-49.0); Lymphocytes % 5.9 % (15.3-44.8); MPV 7.9 fL (7.6-11.3); RBC Red Blood Cell Count 5.12 M/uL (4.33-5.43)
[2019-10-15 11:53] LABS: ALT/SGPT 24 U/L (12-78); AST/SGOT 12 U/L (15-37); Albumin 3.6 g/dL (3.4-5.0); Alkaline Phosphatase 79 U/L (45-117); BUN Blood Urea Nitrogen 18 mg/dL (7-18); Bicarbonate 27 mmol/L (21-32); Bilirubin Direct < 0.1 mg/dL (0-0.2); Bilirubin Total 0.3 mg/dL (0.2-1.0); Glucose Level 238 mg/dL (74-106); Magnesium 1.6 mg/dL (1.8-2.4); NT PRO-BNP 566 pg/mL (<125); Potassium 4.7 mmol/L (3.5-5.1); Protein, Total 8.1 g/dL (6.4-8.2); Sodium Level 133 mmol/L (136-145); Troponin (Emerg Dept Use Only) < 0.02 ng/mL (0.0-0.045)
--- NOTE | 2019-10-15 11:53 | RAD REPORT ---
EXAM DESCRIPTION: Charles Single View10/15/2019 11:38 am CLINICAL HISTORY: Chest pain COMPARISON: 2019 FINDINGS: The lungs appear clear of acute infiltrate. The heart is normal size. Postsurgical changes involve the chest. IMPRESSION: No acute abnormalities displayed
[2019-10-15] MEDS ORDERED: ASPIRIN 81 MG CHEWABLE TABLET ONE (12:02)
[2019-10-15] MEDS ORDERED: MORPHINE 4 MG/ML SYR ONE (12:02)
[2019-10-15] MEDS ORDERED: ONDANSETRON 4 MG/2 ML VIAL ONE (12:02)
[2019-10-15] MEDS ORDERED: NA CHLORIDE 0.9% 1,000 ML ONE (12:03)
--- NOTE | 2019-10-15 12:43 | ER ---
Nurse's Notes [facility] Name: Jorge Schultz Jr Age: 54 yrs Sex: Male : 1965 Arrival Date: 10/15/2019 Time: 10:52 Bed 4 Private MD: Diagnosis: Chest pain, unspecified;Dyspnea;Type 2 diabetes mellitus;Hypomagnesemia Presentation: 10/14 10:56 Chief complaint: Patient states: left sided chest pain and left arm pain that began aa5 approximately 4 hrs CHHA. Pt also reports SOB on exertion. Denies nausea/vomiting/diarrhea, denies cough/fever. 10:56 Coronavirus screen: Client denies travel out of the [place] in the last 14 days. At this aa5 time, the client does not indicate any symptoms associated with coronavirus-19. Ebola Screen: Patient negative for fever greater than or equal to 101.5 degrees Fahrenheit, and additional compatible Ebola Virus Disease symptoms. Initial Sepsis Screen: Does the patient meet any 2 criteria? No. Patient's initial sepsis screen is negative. Does the patient have a suspected source of infection? No. Patient's initial sepsis screen is negative. Risk Assessment: Do you want to hurt yourself or someone else? Patient reports no desire to harm self or others. Onset of symptoms was October 15, 2019. 10:56 Acuity: AALIYAH 2 aa5 10:56 Method Of Arrival: Ambulatory aa5 Triage Assessment: 11:00 General: Appears in no apparent distress. uncomfortable, obese, Behavior is bp cooperative, appropriate for age, anxious. Pain: Complains of pain in chest. EENT: No deficits noted. Neuro: No deficits noted. Cardiovascular: Reports chest pain. Respiratory: No deficits noted. GI: No signs and/or symptoms were reported involving the gastrointestinal system. : No signs and/or symptoms were reported regarding the genitourinary system. Derm: No deficits noted. Musculoskeletal: No deficits noted. Historical: - Allergies: 10:56 No Known Allergies; aa5 - PMHx: 10:56 ADD/ADHD; Anxiety; CAD; Diabetes - NIDDM; GERD; Glaucoma; High Cholesterol; aa5 Hypertension; Myocardial infarction; - PSHx: 10:56 CABG 2014; aa5 Screenin:00 Abuse screen: Denies threats or abuse. Denies injuries from another. Nutritional bp screening: No deficits noted. Tuberculosis screening: No symptoms or risk factors identified. Fall Risk None identified. Assessment: 11:00 General: SEE TRIAGE NOTE. bp 12:05 Reassessment: ALL CURRENT ORDERS COMPLETED, RESULTS PENDING. bp 13:30 Reassessment: ADMIT INITIATED, VS STABLE ON MONITOR. bp 14:56 Reassessment: ADMIT COMPLETE, REPORT TO LATRICIA SALINAS FOR RM 221. bp Vital Signs: 10:58 BP 149 / 88; Pulse 87; Resp 18 S; Temp 98.8(O); Pulse Ox 99% on R/A; Weight 99.79 kg aa5 (R); Height 5 ft. 5 in. (165.10 cm) (R); Pain 8/10; 12:05 BP 147 / 84; Pulse 79; Resp 25; Pulse Ox 95% ; bp 13:30 BP 143 / 87; Pulse 81; Resp 13; Pulse Ox 99% ; bp 14:56 BP 145 / 85; Pulse 80; Resp 16; Pulse Ox 95% ; bp 10:58 Body Mass Index 36.61 (99.79 kg, 165.10 cm) aa5 ED Course: 10:52 Patient arrived in ED. ag5 10:56 Arm band placed on Patient placed in an exam room, on a stretcher. aa5 10:57 Maury Mendieta MD is Attending Physician. chas 11:00 Patient has correct armband on for positive identification. Bed in low position. Call bp light in reach. Side rails up X2. threat monitoring analyst on. Pulse ox on. NIBP on. 11:07 Triage completed. aa5 11:19 Germán Quiñonez, RITA is Primary Nurse. bp 11:30 Inserted saline lock: 22 gauge in right antecubital area, using aseptic technique. bp Blood collected. 11:38 XRAY Chest (1 view) In Process Unspecified. EDMS 12:40 Nando Leong MD is Hospitalizing Provider. chas 13:14 CT Aorta for Dissection In Process Unspecified. EDMS 13:15 CT completed. Patient tolerated procedure well. Patient moved back from CT. bq 14:57 No provider procedures requiring assistance completed. Patient admitted, IV remains in bp place. Patient maintains SpO2 saturation greater than 95% on room air. Administered Medications: 11:30 Drug: Aspirin 162 mg Route: PO; bp 14:03 Follow up: Response: No adverse reaction bp 11:30 Drug: NS 0.9% 1000 ml Route: IV; Rate: 125 ml/hr; Site: right antecubital; bp 11:30 Drug: morphine 4 mg Route: IVP; Site: right antecubital; bp 14:03 Follow up: Response: Pain is decreased bp 11:30 Drug: Zofran (Ondansetron) 4 mg Route: IVP; Site: right antecubital; bp 14:03 Follow up: Response: Nausea is decreased bp 13:00 Drug: Magnesium Sulfate 2 grams Route: IVPB; Infused Over: 2 hrs; Site: right bp antecubital; 14:01 Follow up: IV Status: Completed infusion; IV Intake: 50ml bp 13:00 Drug: Lovenox 1 mg/kg Route: Sub-Q; Site: right lower abdomen; bp 14:02 Follow up: Response: No adverse reaction bp 13:00 Drug: Pepcid 20 mg Route: IVP; Site: right antecubital; bp 14:01 Follow up: Response: No adverse reaction bp Intake: 14:01 IV: 50ml; Total: 50ml. bp Outcome: 12:43 Decision to Hospitalize by Provider. chas 14:57 Admitted to Med/surg accompanied by tech, via wheelchair, room 221, with chart, Report bp called to LATRICIA SALINAS 14:57 Condition: stable 14:57 Instructed on the need for admit. 15:08 Patient left the ED. bp Signatures: Dispatcher [employer] EDMaury Salazar MD MD cha Quilty, Betty bq Calderon, Audri RN RN aa5 Germán Quiñonez RN RN Jacob Brooke ag5 Corrections: (The following items were deleted from the chart) 14:00 13:00 Lovenox 1 mg/kg Sub-Q in right lower abdomen bp bp 14:00 13:41 Response: No adverse reaction bp bp
--- NOTE | 2019-10-15 12:43 | EDPHYS ---
Physician Documentation [facility] Name: Jorge Schultz Jr Age: 54 yrs Sex: Male : 1965 Arrival Date: 10/15/2019 Time: 10:52 Bed 4 Private MD: ED Physician Maury Mendieta HPI: 10/14 12:34 This 54 yrs old Male presents to ER via Ambulatory with complaints of Chest chas Pain, Shoulder Pain. 12:34 The patient or guardian reports chest pain that is located primarily in the substernal chas area, anterior chest wall, left. Onset: just prior to arrival. The pain radiates to the left shoulder, left low back and left mid back. Associated signs and symptoms: Pertinent positives: abdominal pain, shortness of breath, left flank pain. The chest pain is described as dull, a heaviness, a pressure. Modifying factors: The symptoms are alleviated by nothing. the symptoms are aggravated by nothing. Severity of pain: At its worst the pain was mild moderate in the emergency department the pain has improved moderately. The patient has experienced similar episodes in the past, several times. Historical: - Allergies: 10:56 No Known Allergies; aa5 - PMHx: 10:56 ADD/ADHD; Anxiety; CAD; Diabetes - NIDDM; GERD; Glaucoma; High Cholesterol; aa5 Hypertension; Myocardial infarction; - PSHx: 10:56 CABG 2014; aa5 ROS: 12:38 Constitutional: Negative for fever, chills, and weight loss, Eyes: Negative for injury, chas pain, redness, and discharge, ENT: Negative for injury, pain, and discharge, Neck: Negative for injury, pain, and swelling, Respiratory: Negative for shortness of breath, cough, wheezing, and pleuritic chest pain, : Negative for injury, bleeding, discharge, and swelling, Skin: Negative for injury, rash, and discoloration, Neuro: Negative for headache, weakness, numbness, tingling, and seizure, Psych: Negative for depression, anxiety, suicide ideation, homicidal ideation, and hallucinations, Allergy/Immunology: Negative for hives, rash, and allergies, Endocrine: Negative for neck swelling, polydipsia, polyuria, polyphagia, and marked weight changes, Hematologic/Lymphatic: Negative for swollen nodes, abnormal bleeding, and unusual bruising. 12:38 Cardiovascular: Positive for chest pain, of the chest. 12:38 Abdomen/GI: Positive for abdominal pain, abdominal distension, of the anterior aspect of left lateral abdomen, posterior aspect of left lateral abdomen, left upper quadrant and left lower quadrant. Exam: 12:39 Constitutional: This is a well developed, well nourished patient who is awake, alert, chas and in no acute distress. Head/Face: Normocephalic, atraumatic. Eyes: Pupils equal round and reactive to light, extra-ocular motions intact. Lids and lashes normal. Conjunctiva and sclera are non-icteric and not injected. Cornea within normal limits. Periorbital areas with no swelling, redness, or edema. ENT: Nares patent. No nasal discharge, no septal abnormalities noted. Tympanic membranes are normal and external auditory canals are clear. Oropharynx with no redness, swelling, or masses, exudates, or evidence of obstruction, uvula midline. Mucous membranes moist. Neck: Trachea midline, no thyromegaly or masses palpated, and no cervical lymphadenopathy. Supple, full range of motion without nuchal rigidity, or vertebral point tenderness. No Meningismus. Chest/axilla: Normal chest wall appearance and motion. Nontender with no deformity. No lesions are appreciated. Cardiovascular: Regular rate and rhythm with a normal S1 and S2. No gallops, murmurs, or rubs. Normal PMI, no JVD. No pulse deficits. Respiratory: Lungs have equal breath sounds bilaterally, clear to auscultation and percussion. No rales, rhonchi or wheezes noted. No increased work of breathing, no retractions or nasal flaring. Abdomen/GI: Soft, non-tender, with normal bowel sounds. No distension or tympany. No guarding or rebound. No evidence of tenderness throughout. Back: No spinal tenderness. No costovertebral tenderness. Full range of motion. Skin: Warm, dry with normal turgor. Normal color with no rashes, no lesions, and no evidence of cellulitis. Neuro: Awake and alert, GCS 15, oriented to person, place, time, and situation. Cranial nerves II-XII grossly intact. Motor strength 5/5 in all extremities. Sensory grossly intact. Cerebellar exam normal. Normal gait. Psych: Awake, alert, with orientation to person, place and time. Behavior, mood, and affect are within normal limits. 12:39 Musculoskeletal/extremity: Extremities: noted in the anterior aspect of left shoulder and posterior aspect of left shoulder: decreased ROM, ROM: limited active range of motion due to pain, limited passive range of motion due to pain, Circulation is intact in all extremities. Sensation intact. Compartment Syndrome exam of affected extremity: is normal. DVT Exam: No signs of deep vein thrombosis. no pain, no swelling, no tenderness, negative Homans' sign noted on exam, no appreciated bluish discoloration, no erythema, no increased warmth. Vital Signs: 10:58 BP 149 / 88; Pulse 87; Resp 18 S; Temp 98.8(O); Pulse Ox 99% on R/A; Weight 99.79 kg aa5 (R); Height 5 ft. 5 in. (165.10 cm) (R); Pain 8/10; 12:05 BP 147 / 84; Pulse 79; Resp 25; Pulse Ox 95% ; bp 13:30 BP 143 / 87; Pulse 81; Resp 13; Pulse Ox 99% ; bp 14:56 BP 145 / 85; Pulse 80; Resp 16; Pulse Ox 95% ; bp 10:58 Body Mass Index 36.61 (99.79 kg, 165.10 cm) aa5 MDM: 10:57 Patient medically screened. [place] 12:40 Data reviewed: vital signs, nurses notes, lab test result(s), EKG, radiologic studies, chas CT scan, plain films. 12:43 Differential diagnosis: coronary artery disease chest wall pain, congestive heart chas failure gastroesophageal reflux disease (GERD), pancreatitis, pneumonia, pneumothorax, pulmonary embolus, stable angina, Peptic Ulcer Pyelonephritis Ureterolithiasis unstable angina, acute coronary syndrome. HEART Score: History: Moderately Suspicious (1), ECG: Normal (0), Age: > 45 and < 65 years (1), Risk Factors: > or = 3 Risk factors for atherosclerotic disease (2), [Hypercholesterolemia] [Hypertension] [DM] [+ Family HX] [Obesity] Troponin: < or = 1 x Normal Limit (0). The patient was given aspirin in the Emergency Department. The patient's deep vein thrombosis risk score was calculated as follows: Total Score: 0. This patient was found to be at low risk for a deep vein thrombosis by using the Well's assessment criteria. The patient's pulmonary embolism risk score was calculated as follows: Total Score: 0-2 points. This patient was found to be at low risk for a pulmonary embolism by using the Well's assessment criteria. MINNIE Risk Score: 1 - Three or more CAD risk factors, 1- Known CAD, 1 - ASA use in past 7 days, 1 - Recent [<24hrs] Severe Angina, TOTAL SCORE = 4. Data interpreted: gambling monitor: rate is 79 beats/min, rhythm is regular, Pulse oximetry: on room air is 95 %. Test interpretation: by ED physician or midlevel provider: ECG, plain radiologic studies. Counseling: I had a detailed discussion with the patient and/or guardian regarding: the historical points, exam findings, and any diagnostic results supporting the discharge/admit diagnosis, lab results, radiology results, the need for further work-up and treatment in the hospital. 10/14 10:58 Order name: Basic Metabolic Panel; Complete Time: 12:29 [place] 10/14 10:58 Order name: CBC with Diff [place] 10/14 10:58 Order name: LFT's; Complete Time: 12:29 [place] 10/14 10:58 Order name: Magnesium; Complete Time: 12:29 [place] 10/14 10:58 Order name: NT PRO-BNP; Complete Time: 12:29 [place] 10/14 10:58 Order name: Troponin (emerg Dept Use Only); Complete Time: 12:29 [place] 10/14 10:58 Order name: XRAY Chest (1 view); Complete Time: 12:29 [place] 10/14 12:11 Order name: Urine Dipstick--Ancillary (enter results); Complete Time: 14:10 [place] 10/14 12:32 Order name: Lipase; Complete Time: 14:10 [place] 10/14 13:09 Order name: CKMB Creatine Kinase MB [facility] 10/14 13:09 Order name: CKMB Creatine Kinase MB [facility] 10/14 13:09 Order name: Troponin I [facility] 10/14 13:09 Order name: Troponin I [facility] 10/14 14:14 Order name: CBC Smear Scan [facility] 10/14 10:58 Order name: EKG; Complete Time: 10:59 [place] 10/14 10:58 Order name: Cardiac monitoring; Complete Time: 11:21 [place] 10/14 10:58 Order name: EKG - Nurse/Tech; Complete Time: 11:21 [place] 10/14 10:58 Order name: IV Saline Lock; Complete Time: 11:21 [place] 10/14 10:58 Order name: Labs collected and sent; Complete Time: 11: [place] 10/14 10:58 Order name: O2 Per Protocol; Complete Time: 11: [place] 10/14 12:33 Order name: CT Aorta for Dissection; Complete Time: 14:10 [place] 10/14 13:09 Order name: Heart Healthy [facility] 10/14 10:58 Order name: O2 Sat Monitoring; Complete Time: 11: [place] Administered Medications: 11:30 Drug: Aspirin 162 mg Route: PO; bp 14:03 Follow up: Response: No adverse reaction bp 11:30 Drug: NS 0.9% 1000 ml Route: IV; Rate: 125 ml/hr; Site: right antecubital; bp 11:30 Drug: morphine 4 mg Route: IVP; Site: right antecubital; bp 14:03 Follow up: Response: Pain is decreased bp 11:30 Drug: Zofran (Ondansetron) 4 mg Route: IVP; Site: right antecubital; bp 14:03 Follow up: Response: Nausea is decreased bp 13:00 Drug: Magnesium Sulfate 2 grams Route: IVPB; Infused Over: 2 hrs; Site: right bp antecubital; 14:01 Follow up: IV Status: Completed infusion; IV Intake: 50ml bp 13:00 Drug: Lovenox 1 mg/kg Route: Sub-Q; Site: right lower abdomen; bp 14:02 Follow up: Response: No adverse reaction bp 13:00 Drug: Pepcid 20 mg Route: IVP; Site: right antecubital; bp 14:01 Follow up: Response: No adverse reaction bp Disposition: 10/15/19 12:43 Hospitalization ordered by Nando Leong for Observation. Preliminary diagnosis are Chest pain, unspecified, Dyspnea, Type 2 diabetes mellitus, Hypomagnesemia. - Bed requested for Telemetry/MedSurg (observation). - Status is Observation. bp - Condition is Stable. - Problem is new. - Symptoms have improved. Signatures: Dispatcher [employer] EDAR Maury Mendieta MD MD cha Calderon, Audri RN RN aa5 Agata Wahl mt, Brian RN RN bp Corrections: (The following items were deleted from the chart) 12:38 12:32 Stone Protocol+CT.RAD.BRZ ordered. EDMS EDMS 12:43 12:43 Hospitalization Ordered by Nando Leong MD for Observation. Preliminary chas diagnosis is Chest pain, unspecified; Dyspnea; Type 2 diabetes mellitus. Bed requested for Telemetry/MedSurg (observation). Status is Observation. Condition is Stable. Problem is new. Symptoms have improved. chas 14:17 12:43 10/15/2019 12:43 Hospitalization Ordered by Nando Leong MD for Observation. mt Preliminary diagnosis is Chest pain, unspecified; Dyspnea; Type 2 diabetes mellitus; Hypomagnesemia. Bed requested for Telemetry/MedSurg (observation). Status is Observation. Condition is Stable. Problem is new. Symptoms have improved. chas 15:08 14:17 10/15/2019 12:43 Hospitalization Ordered by Nando Leong MD for Observation. bp Preliminary diagnosis is Chest pain, unspecified; Dyspnea; Type 2 diabetes mellitus; Hypomagnesemia. Bed requested for Telemetry/MedSurg (observation). Status is Observation. Condition is Stable. Problem is new. Symptoms have improved. mt
[2019-10-15] MEDS ORDERED: FAMOTIDINE 20 MG/2 ML VIAL IV ONE (13:03)
[2019-10-15] MEDS ORDERED: ENOXAPARIN 100 MG/ML SYR SQ ONE (13:03)
[2019-10-15] MEDS ORDERED: Magnesium Sulfate 2gm IVPB 2 G/50 ML BAG IV ONE (13:03)
[2019-10-15] MEDS ORDERED: ACETAMINOPHEN 500 MG TAB PO PRN (13:06)
--- NOTE | 2019-10-15 13:10 | P.HP ---
Certification for Inpatient Patient admitted to: Observation With expected LOS: <2 Midnights Practitioner: I am a practitioner with admitting privileges, knowledge of patient current condition, hospital course, and medical plan of care. Services: Services provided to patient in accordance with Admission requirements found in Title 42 Section 412.3 of the Code of Federal Regulations Patient History Date of Service: 10/15/19 Reason for admission: Chest Pain History of Present Illness: 54 yrs old Male with past medical history of DM,HTN,CAD s/p CABG ,HLD, presents with complaints of Chest Pain, Shoulder Pain. The patient reports chest pain that is located primarily in the substernal area, anterior chest wall, left. Onset: just prior to arrival. The pain radiates to the left shoulder, left low back and left mid back. Associated with abdominal pain, shortness of breath, left flank pain. The chest pain is described as dull, a heaviness, a pressure. 4/10 in severity of pain Patient was seen in ER and was admitted for chest pain to r/o ACS Allergies No Known Drug Allergies Allergy (Verified 07/29/15 05:14) Unknown No Known Allergies Allergy (Uncoded 04/17/16 07:21) Unknown Home medications list reviewed: Yes Home Medications: Amlodipine Besylate 10 mg PO DAILY 10/15/19 Aspirin [Aspirin EC 81 MG] 81 mg PO DAILY 10/15/19 Atorvastatin Calcium [Lipitor*] 20 mg PO DAILY 10/15/19 Carisoprodol [Soma] 350 mg PO TIDP PRN 10/15/19 Clopidogrel Bisulfate [Plavix*] 75 mg PO DAILY 10/15/19 Hydrocodone 10/APAP 325 [[place] 10/325*] 1 tab PO QIDP PRN 10/15/19 Insulin Glargine Human [Lantus*] 20 unit SQ BEDTIME 10/15/19 Liraglutide [Victoza 2-Imer] 1.8 ml SQ DAILY 10/15/19 Metformin HCl [Metformin HCl ER] 1,000 mg PO BIDWM 10/15/19 Metoprolol Tartrate 100 mg PO BID 10/15/19 - Past Medical/Surgical History Diabetic: Yes Past Medical History: Reviewed- Non-Contributory -: X3 MIs -: IDDM -: chronic back pain -: cataracts -: glaucoma rt eye -: cellulitis -: staph infection with CABG -: Glaucoma -: Staph infection wound chest Past Surgical History: Reviewed- Non-Contributory -: cardiac cath -: lumbar epidural injection x3 -: CABG (May 29 2014) x 4 vessels -: cardiac stents 01/06 - Family History Family History: Reviewed- Non-Contributory - Family History Mother -: Heart disease, Diabetes Father -: Stroke, Cancer Notes: Multiple CANCER Sister -: Cancer Notes: liver - Social History Smoking Status: Former smoker Alcohol use: No CD- Drugs: No Caffeine use: Yes Review of Systems 10-point ROS is otherwise unremarkable Physical Examination - Vital Signs Temperature: 98.4 F Blood Pressure: 146/78 Pulse: 78 Respirations: 18 - Physical Exam General: Alert, In no apparent distress, Oriented x3 HEENT: Atraumatic, Normocephalic Neck: Supple Respiratory: Clear to auscultation bilaterally Cardiovascular: No edema, Regular rate/rhythm, Normal S1 S2 Capillary refill: <2 Seconds Gastrointestinal: Soft and benign, W/out hepatosplenomegaly Musculoskeletal: No clubbing, No swelling Integumentary: No rashes, No breakdown Neurological: Normal speech, Normal strength at 5/5 x4 extr Lymphatics: No axilla or inguinal lymphadenopathy - Studies Laboratory Data (last 24 hrs) 10/15/19 11:20: Lipase 133 10/15/19 11:20: WBC 7.5, Hgb 16.0, Hct 45.9, Plt Count 171 10/15/19 11:20: Sodium 133 L, Potassium 4.7, BUN 18, Creatinine 1.29, Glucose 238 H, Magnesium 1.6 L, Total Bilirubin 0.3, AST 12 L, ALT 24, Alkaline Phosphatase 79 Assessment and Plan - Problems (Diagnosis) (1) Chest pain Onset Date: 07/29/15 Current Visit: No Status: Acute (2) Diabetes mellitus type 2 in obese Current Visit: No Status: Acute (3) Obesity (BMI 30-39.9) Current Visit: No Status: Acute (4) Unstable angina Onset Date: 01/09/15 Current Visit: No Status: Acute (5) Coronary artery disease Onset Date: 12/31/14 Current Visit: No Status: Chronic Qualifiers: Coronary Disease-Associated Artery/Lesion type: bypass graft [place] vs. transplanted heart: [place] heart Associated angina: with unstable angina Qualified Code(s): I25.700 - Atherosclerosis of coronary artery bypass graft(s), unspecified, with unstable angina pectoris (6) Hypercholesterolemia Onset Date: 12/31/14 Current Visit: No Status: Chronic (7) Hypertension Onset Date: 12/31/14 Current Visit: No Status: Chronic - Plan Chest Pain to R/o ACS Diabetes Hypertension Hyper lipidemia H/o CAD s/p CABG and Stents Plan Admite under Observation Will trend Cardiac enzymes Monitor under telemetry will start on aspirin , Statin Cardiology consult CTA chest was negative for dissection Antihypertensives continued and titrated Will start on Insulin sliding scale will get an A1c in Am continue home medications will get a lipid panel in AM GI/DVT prophylaxis Discharge Plan: Home Plan to discharge in: 24 Hours - Advance Directives Does patient have a Living Will: No Does patient have a Durable POA for Healthcare: No Time Spent Managing Pts Care (In Minutes): 45
--- NOTE | 2019-10-15 13:38 | RAD REPORT ---
EXAM DESCRIPTION: CT - Angio Aorta For Dissection - 10/15/2019 1:14 pm CLINICAL HISTORY: Abdominal distention;Dissection;SOB COMPARISON: None. TECHNIQUE: Dynamically enhanced 3 mm thick images of the chest, abdomen, and upper pelvis were obtai wilver during administration of approximately 150mL Isovue 370 IV contrast. Sagittal and coronal reconst ruction images were generated using MIP and reviewed. Exam utilizes a protocol to evaluate entire cou rse of the aorta. All CT scans are performed using dose optimization technique as appropriate and may include automated exposure control or mA/KV adjustment according to patient size. FINDINGS: Several small nodules are present in the thyroid gland partially visualized on this study. Largest approximately 11 mm. Aorta is normal in diameter with no dissection or other acute aortic findings. Reconstruction images show no significant findings. Pulmonary arteries are normal as well. No cardiomegaly, pericardial thickening or pericardial effusio n. No mass or infiltrate in the lung parenchyma. No pleural thickening, pleural effusion or pneumothorax . No abnormal mediastinal or hilar mass or lymphadenopathy seen. No chest wall mass or abnormal axillar y lymphadenopathy. Celiac, SMA and renal arteries show no suspicious findings. Patient has normal variant duplicated rig ht renal arteries. Solid abdominal viscera and bowel show no significant findings. Liver is probably fatty infiltrated. No mass or abnormal lymphadenopathy. No free air, free fluid or inflammatory stra nding. No urinary bladder abnormality. No acute or destructive bone process. Sternotomy wires are in place. Patient has degenerative change in the thoracic and lumbar spine. IMPRESSION: Negative CT scan of the aorta. No other significant findings on chest, abdomen and upper pelvis examination.Nonacute findings detail ed in the body of the report.
[2019-10-15 13:45] LABS: Urine Blood TRACE (NEG); Urine Glucose 2+ (NEG); Urine Protein 1+ (NEG); Urine Specific Gravity 1.015 (1.005-1.030); Urine pH 5.5 (5.0-7.0)
[2019-10-15 14:14] LABS: Blood Morphology Comment NOT SEEN (NOT SEEN); Platelet Estimate ADEQ; Urine White Blood Cell Casts OK
[2019-10-15 15:09] VITALS: BMI 34.7
[2019-10-15] MEDS ORDERED: D50W 25 GM/50 ML SYRINGE/VIAL IV PRN ×2 (15:14→19:03)
[2019-10-15] MEDS ORDERED: GLUCAGON 1 MG/VIAL IM PRN ×2 (15:14→19:03)
[2019-10-15] MEDS: MORPHINE 2 MG/ML SYR IV PRN ×2 (15:40→19:59)
[2019-10-15] MEDS: INSULIN -REGULAR HUMAN 50 UNIT/0.5 ML ML SQ SCH ×2 (16:22→20:07)
[2019-10-15] MEDS ORDERED: carisoprodoL 350 MG TAB PO PRN (19:03)
[2019-10-15] MEDS: ATORVASTATIN 40 MG TAB PO SCH ×2 (20:01→22:00)
[2019-10-15] MEDS: METOPROLOL TAR 50 MG TAB PO SCH (20:02)
[2019-10-15 20:06] LABS: CKMB Creatine Kinase MB 1.3 ng/mL (0.3-3.6); Troponin I < 0.02 ng/mL (0.0-0.045)
--- NOTE | 2019-10-15 20:45 | CON ---
Date of Consultation: 10/15/2019 Reason For Consultation: Chest pain. History Of Present Illness: This is a 54-year-old male with history of significant coronary artery d isease status post quadruple bypass surgery 5 years ago, hypertension, dyslipidemia, uncontrolled [place], who presented with chest pain, left-sided and radiates to the left upper extremity and left sh oulder, and he said that he is having chest pain with exertion at home. There is no nausea, vomiting with it, but there is some shortness of breath, but at the present time he is completely asymptomati c. Past Medical History: As outlined above in the HPI medications Percocet sheet for detailed list. Past Surgical History: History CABG in 2015, 4 vessels, cardiac stent. Social History: Does not smoke or drink. Does not use any drugs. Allergies: NO KNOWN DRUG ALLERGIES. Review of Systems: All systems reviewed and they were negative except what is mentioned in the HPI. Physical Examination: Vital Signs: Temperature is 98.4, pulse 78, breathing at 18, blood pressure is 146/78, saturating 98 % on room air. General: Pleasant middle-aged male, in no distress. Head and Neck: Pupils are equal, reactive to light. Intact eye movements. No JVD. No cervical lym phadenopathy. Neck is supple. Thyroid is not enlarged. Lungs: Clear to auscultation bilaterally. No rhonchi, rales, or crackles. No accessory muscle use. Heart: Regular rate and rhythm. No extra sounds. Abdomen: Soft, nontender. Bowel sounds positive. No organomegaly was noted. No masses or hernia. No rigidity or rebound. Extremities: No edema, clubbing, cyanosis. Intact pulses. Skin: No rash. Neurologic: Alert, awake, oriented x3. No acute focal deficit appreciated. Investigations: The patient's EKG without acute ST-T wave abnormalities, troponin was 0.02. Creatin ine 1.29, hemoglobin is 16.0, white blood cell count 7.5, and CT angiogram of the aorta was negative for dissection. No significant findings otherwise. Assessment/plan: 1.Chest pain, exertional with history of coronary artery disease bypass 5 years ago. I recommend co ronary angiogram, explained risks, benefits, alternatives to the patient. He understands and was dis cussed with the family and let us know by tomorrow morning. Please keep n.p.o. past midnight. If th e patient agrees to the coronary angiogram, then we will plan on doing it tomorrow. Meanwhile, we wi ll have serial sets of cardiac enzymes and monitor on telemetry and make sure the patient is on aspir in, high-dose statin. If troponins are negative and the patient declines cardiac cath, then outpatie nt stress test would be appropriate. I appreciate the courtesy of this consultation. /CORTES Voice ID: [id number] Report ID: [id number]
[2019-10-15] MEDS ORDERED: INSULIN GLARGINE 100 UNITS/ML SQ SCH (21:00)
[2019-10-16] MEDS: HYDROCODONE/APAP 10/325 TAB PO PRN ×2 (03:24→08:58)
[2019-10-16 03:40] LABS: Absolute Lymphocytes (CBC) 0.7 K/uL (0.7-4.9); Basophils % 0.3 % (0-1.3); Hematocrit 45.1 % (39.6-49.0); Lymphocytes % 9.3 % (15.3-44.8); MPV 7.7 fL (7.6-11.3); RBC Red Blood Cell Count 5.08 M/uL (4.33-5.43)
[2019-10-16 03:55] LABS: ALT/SGPT 23 U/L (12-78); AST/SGOT 14 U/L (15-37); Albumin 3.4 g/dL (3.4-5.0); Alkaline Phosphatase 75 U/L (45-117); BUN Blood Urea Nitrogen 17 mg/dL (7-18); Bicarbonate 25 mmol/L (21-32); Bilirubin Total 0.3 mg/dL (0.2-1.0); CKMB Creatine Kinase MB < 1.0 ng/mL (0.3-3.6); Glucose Level 218 mg/dL (74-106); Magnesium 1.9 mg/dL (1.8-2.4); Phosphorus 2.6 mg/dL (2.5-4.9); Potassium 4.5 mmol/L (3.5-5.1); Protein, Total 7.7 g/dL (6.4-8.2); Sodium Level 133 mmol/L (136-145); Troponin I < 0.02 ng/mL (0.0-0.045)
[2019-10-16] MEDS: METOPROLOL TAR 50 MG TAB PO SCH (08:58)
[2019-10-16 09:00] VITALS: BP 128/78
[2019-10-16] MEDS ORDERED: ASPIRIN EC 81 MG TAB PO SCH ×2 (09:00)
[2019-10-16] MEDS ORDERED: AMLODIPINE 10 MG TAB PO SCH (09:00)
[2019-10-16] MEDS ORDERED: CLOPIDOGREL 75 MG TABLET PO SCH (09:00)
[2019-10-16] MEDS ORDERED: LIRAGLUTIDE SQ SCH (09:00)
[2019-10-16] MEDS: INSULIN -REGULAR HUMAN 50 UNIT/0.5 ML ML SQ SCH (09:00)
[2019-10-16] MEDS ORDERED: ENOXAPARIN 40 MG/0.4 ML SQ SCH (09:00)
[2019-10-16 09:15] VITALS: TEMP 97.3
[2019-10-16 10:05] VITALS: O2SAT 97
--- NOTE | 2019-10-16 10:40 | P.DS ---
Admission Date: 10/16/19 Discharge Date: 10/16/19 Disposition: ROUTINE DISCHARGE Discharge Condition: GOOD Reason for Admission: Chest Pain Consultations: Cardiology - Dr. Adair Procedures: Medical Problem List Chest pain - atypical, h/o CAD s/p CABG (2014) DM2, insulin-dependent HTN Obesity Hypercholesterolemia Brief History of Present Illness: 54yo Male presented with left substernal chest pain that began just prior to arrival to ED. Described as dull, heaviness, pressure-like 4/10 in severity. Associated with abdominal pain, SOB, left flank pain. Hospital Course: He was brought in for observation for ACS rule out. His chest pain resolved prior to admission. Troponins were trended and negative. EKG without any new is chemic changes. Cardiology was consulted and recommended cardiac cath given his history and presentation, however patient declined cath at this time. Given the negative workup thus far, he was discharged home and instructed to have close follow-up with his PCP and cardiology. He was recommended to have an outpatient stress test. Vital Signs/Physical Exam: Temp Pulse Resp BP Pulse Ox 97.3 F 79 18 128/78 97 10/16/19 08:00 10/16/19 08:58 10/16/19 08:58 10/16/19 08:58 10/16/19 08:58 General: In no apparent distress, Oriented x3 HEENT: EOMI, Sclerae nonicteric Neck: Supple, JVD not distended Respiratory: Clear to auscultation bilaterally, Normal air movement Cardiovascular: No edema, Regular rate/rhythm, Normal S1 S2 Capillary refill: <2 Seconds Gastrointestinal: Normal bowel sounds, Soft and benign, Non-distended Musculoskeletal: No erythema, No tenderness Integumentary: No rashes, No breakdown Neurological: Normal speech, Normal strength at 5/5 x4 extr, Normal affect Laboratory Data at Discharge: WBC 7.1 K/uL (4.3-10.9) 10/16/19 03:16 Hgb 15.9 g/dL (13.6-17.9) 10/16/19 03:16 Hct 45.1 % (39.6-49.0) 10/16/19 03:16 Plt Count 158 K/uL (152-406) 10/16/19 03:16 Sodium 133 mmol/L (136-145) L 10/16/19 03:16 Potassium 4.5 mmol/L (3.5-5.1) 10/16/19 03:16 BUN 17 mg/dL (7-18) 10/16/19 03:16 Creatinine 1.05 mg/dL (0.55-1.3) 10/16/19 03:16 Glucose 218 mg/dL (74-106) H 10/16/19 03:16 Phosphorus Cancelled 10/16/19 05:00 Magnesium Cancelled 10/16/19 05:00 Total Bilirubin 0.3 mg/dL (0.2-1.0) 10/16/19 03:16 AST 14 U/L (15-37) L 10/16/19 03:16 ALT 23 U/L (12-78) 10/16/19 03:16 Alkaline Phosphatase 75 U/L (45-117) 10/16/19 03:16 Troponin I < 0.02 ng/mL (0.0-0.045) 10/16/19 03:16 Lipase 133 U/L (73-393) 10/15/19 11:20 Home Medications: Amlodipine Besylate 10 mg PO DAILY 10/15/19 Aspirin [Aspirin EC 81 MG] 81 mg PO DAILY 10/15/19 Atorvastatin Calcium [Lipitor*] 20 mg PO DAILY 10/15/19 Carisoprodol [Soma] 350 mg PO TIDP PRN 10/15/19 Clopidogrel Bisulfate [Plavix*] 75 mg PO DAILY 10/15/19 Hydrocodone 10/APAP 325 [Gunpowder 10/325*] 1 tab PO QIDP PRN 10/15/19 Insulin Glargine Human [Lantus*] 20 unit SQ BEDTIME 10/15/19 Liraglutide [Victoza 2-Imer] 1.8 ml SQ DAILY 10/15/19 Metformin HCl [Metformin HCl ER] 1,000 mg PO BIDWM 10/15/19 Metoprolol Tartrate 100 mg PO BID 10/15/19 Patient Discharge Instructions: follow up with PCP within 1 week. recommend outpatient stress test Diet: ADA Activity: Ad jennifer Followup: Jose Maria Adair MD [OUTSIDE PHYSICIAN] - Time spent managing pt's care (in minutes): 45
[2019-10-16 11:41] LABS: CKMB Creatine Kinase MB < 1.0 ng/mL (0.3-3.6); Troponin I < 0.02 ng/mL (0.0-0.045)
--- NOTE | 2019-10-17 10:47 | EKG ---
Test Date: 2019-10-15 Test Time: 11:07:46 Mill Manager: ANANT MEASUREMENT RESULTS: Intervals: Rate: 81 DE: 134 QRSD: 92 QT: 356 QTc: 413 [place]: P: 25 DE: 134 QRS: -70 T: -37 INTERPRETIVE STATEMENTS: Normal sinus rhythm Left anterior fascicular block Septal infarct, age undetermined Abnormal ECG Compared to ECG 12/06/2018 07:24:09 Left anterior fascicular block now present Myocardial infarct finding now present Ventricular premature complex(es) no longer present Left-axis deviation no longer present T-wave abnormality no longer present Electronically Signed On 10-17-19 10:43:56 CDT by Eduardo Brush
== END 2019-10-16 11:51 | disposition home or self-care (01) | DRG 313 ==
LOC: ER 10:51 → ERHOLD 13:07 → 2ND 14:55 → OBSVTOIN 10-16 08:19
PROVIDERS: ADMIT Family Medicine; ATTEND Hospitalist
DX: R07.89 Other chest pain (principal); E11.65 Type 2 diabetes mellitus with hyperglycemia; I10 Essential (primary) hypertension; E78.00 Pure hypercholesterolemia, unspecified; I25.10 Atherosclerotic heart disease of native coronary artery without angina pectoris; Z79.4 Long term (current) use of insulin; Z79.84 Long term (current) use of oral hypoglycemic drugs; I25.2 Old myocardial infarction; Z95.1 Presence of aortocoronary bypass graft; Z95.5 Presence of coronary angioplasty implant and graft; Z11.59 Encounter for screening for other viral diseases
CPT/HCPCS: 36415; 71045; 71275; 74175; 80048; 80053; 80076; 81003; 82553; 82947; 83690; 83735; 83880; 84100; 84484; 85025; 93005; 94760; 96365; 96372; 96375; 99285; G0378; J1650; J2270; J2405; J3475; J7030; Q9967; U0003

== ENCOUNTER 2020-03-25 17:43 | Emergency (ER) | payer SELFPAY ==
--- NOTE | 2020-03-25 19:07 | ER ---
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 Denies injury to chest. HX of heart attack x 3, CABG and heart stents. Coronavirus screen: Client denies travel out of the [place] in the last 14 days. At this time, the client does not indicate any symptoms associated with coronavirus-19. Ebola Screen: Patient negative for fever greater than or equal to 101.5 degrees Fahrenheit, and additional compatible Ebola Virus Disease symptoms Patient denies exposure to infectious person. Patient denies travel to an Ebola-affected area in the 21 days before illness onset. No symptoms or risks identified at this time. Initial Sepsis Screen: Does the patient meet any 2 criteria? No. Patient's initial sepsis screen is negative. Does the patient have a suspected source of infection? No. Patient's initial sepsis screen is negative. Risk Assessment: Do you want to hurt yourself or someone else? Patient reports no desire to harm self or others. Onset of symptoms was March 25, 2020. 17:48 Method Of Arrival: Ambulatory ca1 17:48 Acuity: AALIYAH 3 ca1 Historical: - Allergies: 17:52 No Known Allergies; ca1 - Home Meds: 17:52 aspirin 81 mg Oral TbEC 1 tab once daily [Active]; metformin 500 mg Oral Tb24 1 tab 2 ca1 times per day [Active]; Metoprolol Tartrate Oral [Active]; Plavix 75 mg Oral tab 1 tab once daily [Active]; Victoza 2-Imer subcutaneous subcutaneous [Active]; Levemir subcutaneous subcutaneous [Active]; Xanax Oral [Active]; Hydrocodone-Acetaminophen Oral [Active]; - PMHx: 17:52 ADD/ADHD; Anxiety; CAD; Diabetes - NIDDM; GERD; Glaucoma; High Cholesterol; Myocardial ca1 infarction; Hypertension; - PSHx: 17:52 CABG 2014; ca1 - Immunization history:: Flu vaccine is not up to date. - Social history:: Smoking status: Patient denies any tobacco usage or history of. Vital Signs: 17:48 BP 158 / 99; Pulse 85; Resp 18 S; Temp 97.9(TE); Pulse Ox 100% on R/A; Weight 97.52 kg ca1 (R); Height 5 ft. 5 in. (165.10 cm) (R); Pain 6/10; 19:02 BP 120 / 84; Pulse 74; Resp 20; Pulse Ox 99% ; sp 17:48 Body Mass Index 35.78 (97.52 kg, 165.10 cm) ca1 ED Course: 17:48 Patient arrived in ED. ca1 17:50 Triage completed. ca1 17:52 Arm band placed on right wrist. ca1 Administered Medications: No medications were administered Outcome: 19:08 Patient left the ED. tt3 Signatures: Isa Barrios Cheryl, RN RN ca1 Lucas Treadwell tt3
[2020-03-25 22:09] VITALS: TEMP 97.9
[2020-03-25 22:13] VITALS: BP 120/84; O2SAT 99
--- NOTE | 2020-03-26 12:55 | EKG ---
Test Date: 2020-03-25 Test Time: 17:54:01 Turnstile Collector: GEOVANY MEASUREMENT RESULTS: Intervals: Rate: 79 OK: 142 QRSD: 90 QT: 370 QTc: 424 [place]: P: 29 OK: 142 QRS: -51 T: -39 INTERPRETIVE STATEMENTS: Normal sinus rhythm Left anterior fascicular block Septal infarct, age undetermined Abnormal ECG Compared to ECG 10/15/2019 11:07:46 No significant changes Electronically Signed On 03-26-20 12:53:18 WAXER TENDER by Eduardo Brush
== END 2020-03-25 19:08 | disposition left against medical advice (07) ==
LOC: ER 17:43
DX: R07.9 Chest pain, unspecified (principal); Z53.21 Procedure and treatment not carried out due to patient leaving prior to being seen by health care provider
CPT/HCPCS: 93005; 99281

== ENCOUNTER 2020-11-26 16:39 | Observation (INO) | payer SELFPAY ==
[2020-11-26 17:41] LABS: BUN Blood Urea Nitrogen 24 mg/dL (7-18); Bicarbonate 23 mmol/L (21-32); Glucose Level 269 mg/dL (74-106); Magnesium 1.9 mg/dL (1.8-2.4); NT PRO-BNP 658 pg/mL (<125); Potassium 4.5 mmol/L (3.5-5.1); Sodium Level 136 mmol/L (136-145); Troponin (Emerg Dept Use Only) < 0.02 ng/mL (0.0-0.045)
[2020-11-26 17:45] LABS: Protime INR 0.93
[2020-11-26 17:46] LABS: Absolute Lymphocytes (CBC) 1.6 K/uL (0.7-4.9); Basophils % 0.5 % (0-1.3); Hematocrit 45.7 % (39.6-49.0); Lymphocytes % 25.7 % (15.3-44.8); MPV 7.9 fL (7.6-11.3); RBC Red Blood Cell Count 5.13 M/uL (4.33-5.43)
--- NOTE | 2020-11-26 18:08 | RAD REPORT ---
EXAM DESCRIPTION: RAD - Chest Single View - 11/26/2020 5:34 pm CLINICAL HISTORY: CHEST PAIN COMPARISON: September 2019 TECHNIQUE: AP portable chest image was obtained 11/26/2020 5:34 pm . FINDINGS: Lungs are clear. Lung markings match comparison. Sternotomy wires are in place. Heart and vasculature are normal. No measurable pleural effusion and no pneumothorax. No acute bony abnormality seen. No acute aortic findings suspected. IMPRESSION: No acute cardiopulmonary process. No significant change from comparison study.
--- NOTE | 2020-11-26 18:35 | RAD REPORT ---
EXAM DESCRIPTION: CT - Head Brain Wo Cont - 11/26/2020 6:27 pm CLINICAL HISTORY: headache, left facial tingling COMPARISON: Head angio dated 11/26/2020; Head Brain Wo Cont dated 08/01/2018; HEAD BRAIN W O CONTRAST dated 03/29/2009 TECHNIQUE: Axial 5 mm thick images of the head were obtained without IV contrast. All CT scans are performed using dose optimization technique as appropriate and may include automated exposure control or mA/KV adjustment according to patient size. FINDINGS: No intracranial hemorrhage, new mass, edema or shift of mid-line structures. Approximately 10 mm homogeneous fatty mass at the left cerebellopontine angle dates back to at least 2009. This is likely a dermoid cyst or possibly lipoma. No acute infarction changes seen. No abnormal extra-axial fluid collections. Ventricles are normal. Arterial and physiologic calcifications are present. Mastoid air cells and visualized portions of the paranasal sinuses are clear. No acute bony findings. IMPRESSION: Negative non-contrast CT head examination for acute finding. No significant change from the 2019 study.
--- NOTE | 2020-11-26 18:38 | RAD REPORT ---
EXAM DESCRIPTION: CT - Head angio - 11/26/2020 6:28 pm CLINICAL HISTORY: left facial tingling TECHNIQUE: During dynamic enhancement using nonionic IV contrast, axial 1 millimeter thick images of the head were obtained. Sagittal and axial reconstruction images were generated using MIP technique and reviewed. All CT scans are performed using dose optimization technique as appropriate and may include automated exposure control or mA/KV adjustment according to patient size. FINDINGS: No aneurysm or vascular malformation identified. Major venous sinuses are patent. Right vertebral artery is dominant with a very small distal left vertebral artery. No basilar artery abnormality seen. No stenosis, named branch occlusion, vasculitis or other significant vascular findi ng identifiable in the anterior, middle and posterior cerebral artery distributions. The supraclinoid and distal cavernous portions of each internal carotid artery show prominent atherosclerotic calcifi cations. No significant degree of luminal narrowing identified. IMPRESSION: Negative CT angio head examination for acute finding. Bilateral internal carotid artery atherosclerotic calcifications are present without significant shmuel nal narrowing identified.
--- NOTE | 2020-11-26 18:50 | EDPHYS ---
Physician Documentation [facility] Name: Jorge Schultz Jr Age: 55 yrs Sex: Male : 1965 Arrival Date: 11/26/2020 Time: 16:42 Bed 30 Private MD: ED Physician Tee Bragg HPI: 11/26 18:40 This 55 yrs old Male presents to ER via Ambulatory with complaints of Chest rn Pain. 18:40 The patient or guardian reports chest pain that is located primarily in the substernal rn area. Onset: this morning. The pain radiates to the left arm. Associated signs and symptoms: Pertinent negatives: abdominal pain, cough, diaphoresis, lower extremity swelling, syncope, vomiting. The chest pain is described as a heaviness. Duration: The patient or guardian reports a single episode, that is still ongoing. Modifying factors: The symptoms are alleviated by nothing. the symptoms are aggravated by nothing. Severity of pain: At its worst the pain was moderate in the emergency department the pain has improved. The patient has experienced similar episodes in the past. The patient has not recently seen a physician. Patient reports chest pain that is substernal and left-sided, radiates to the left arm, moderate, no trauma and no recent illness. Has a history of coronary artery bypass as well as stent with the last stent being 6 years ago. Reports has been having intermittent chest pain for the last few weeks.. Historical: - Allergies: 16:42 No Known Drug Allergies; sv - PMHx: 16:42 ADD/ADHD; Anxiety; CAD; Diabetes - NIDDM; GERD; Glaucoma; High Cholesterol; sv Hypertension; Myocardial infarction; - Immunization history:: Adult Immunizations up to date, Client reports receiving the Bubba \\T\\ Bubba single-dose vaccine. Pneumococcal vaccine is up to date, Flu vaccine is up to date. - Family history:: not pertinent. - Social history:: Smoking status: . - Code Status:: Full code. - Hospitalizations: : No recent hospitalization is reported. ROS: 18:40 Constitutional: Negative for fever, chills, and weight loss, Eyes: Negative for injury, rn pain, redness, and discharge, Neck: Negative for injury, pain, and swelling, Cardiovascular: Positive for chest pain Respiratory: Negative for shortness of breath, cough, wheezing, and pleuritic chest pain, Abdomen/GI: Negative for abdominal pain, nausea, vomiting, diarrhea, and constipation, Back: Negative for injury and pain, : Negative for injury, bleeding, discharge, and swelling, MS/Extremity: Negative for injury and deformity, Skin: Negative for injury, rash, and discoloration, Neuro: Negative for headache, weakness, and seizure, reports feeling tingling in left cheek. Exam: 17:39 ECG was reviewed by the Attending Physician. rn 18:40 Constitutional: This is a well developed, well nourished patient who is awake, alert, rn and in no acute distress. Head/Face: Normocephalic, atraumatic. Eyes: Pupils equal round and reactive to light, extra-ocular motions intact. Lids and lashes normal. Conjunctiva and sclera are non-icteric and not injected. Cornea within normal limits. Periorbital areas with no swelling, redness, or edema. Cardiovascular: Regular rate and rhythm. No pulse deficits. Respiratory: No increased work of breathing, no retractions or nasal flaring. Abdomen/GI: Soft, non-tender Skin: Warm, dry MS/ Extremity: Pulses equal, no cyanosis. Neurovascular intact. FROM Neuro: Awake and alert, GCS 15, oriented to person, place, time, and situation. Cranial nerves II-XII grossly intact. Motor strength 5/5 in all extremities. Sensory grossly intact. Cerebellar exam normal. Vital Signs: 16:52 BP 157 / 90; Pulse 75; Resp 20; Temp 98; Pulse Ox 100% ; sv 17:19 BP 157 / 90; Pulse 75; Resp 20; Temp 98.0; Pulse Ox 100% on R/A; wr 18:38 BP 110 / 78; Pulse 74; Resp 20; Pulse Ox 100% on R/A; kh1 19:40 BP 146 / 77; Pulse 73; Resp 16; Temp 98.2(O); Pulse Ox 97% on R/A; Pain 0/10; bc5 11/27 01:30 BP 140 / 88; Pulse 67; Resp 16; Temp 98.5(O); Pulse Ox 100% on R/A; Pain 0/10; bc5 MDM: 11/26 16:51 Patient medically screened. rn 18:44 Differential diagnosis: acute myocardial infarction, acute pericarditis, anxiety, rn coronary artery disease costochondritis, esophagitis, pleurisy, pneumothorax, stable angina, unstable angina. The patient was given aspirin in the Emergency Department. 18:46 Data reviewed: vital signs, nurses notes, lab test result(s), EKG, radiologic studies, rn plain films, and as a result, I will admit patient. Data interpreted: monitoring and evaluation advisor: rate is 74 beats/min, rhythm is normal sinus rhythm, regular, with no ectopy, Interpretation: normal rate, normal rhythm, Pulse oximetry: on room air is 100 %. Interpretation: normal. Test interpretation: by ED physician or midlevel provider: ECG, plain radiologic studies, Chest x-ray negative for pneumothorax or pneumonia. Counseling: I had a detailed discussion with the patient and/or guardian regarding: the historical points, exam findings, and any diagnostic results supporting the discharge/admit diagnosis, lab results, radiology results, the need for further work-up and treatment in the hospital. Response to treatment: the patient's symptoms have mildly improved after treatment, and as a result, I will admit patient. Admission orders: after a detailed discussion of the patient's condition and case, the admit orders are written by me. 18:55 ED course: Patient sitting up, chest pain-free, drinking Diet Coke and using both arms rn to text on phone. CT angio without blockage.. 10 16:58 Order name: Basic Metabolic Panel rn 11/26 16:58 Order name: CBC with Diff; Complete Time: 17:59 rn 11/26 16:58 Order name: Magnesium rn 11/26 16:58 Order name: NT PRO-BNP rn 11/26 16:58 Order name: PT-INR; Complete Time: 17:59 rn 11/26 16:58 Order name: Troponin (emerg Dept Use Only) rn 11/26 16:58 Order name: XRAY Chest (1 view); Complete Time: 18:39 rn 11/26 16:58 Order name: CT Head Brain wo Cont; Complete Time: 18:39 rn 11/26 18:56 Order name: COVID-19 : Document "Date of Symptom Onset" if Symptomatic. sv 11/26 21:58 Order name: Glucose, Ancillary Testing EDMS 11/26 23:45 Order name: Urine Dipstick-Ancillary EDMS 11/27 00:15 Order name: Phosphorus EDMS 10/06 00:29 Order name: Troponin I EDGA 11/27 01:05 Order name: SARS-COV-2 RT PCR EDMS 11/26 16:58 Order name: EKG; Complete Time: 16:59 rn 11/26 16:58 Order name: Cardiac monitoring; Complete Time: 17:19 rn 11/26 16:58 Order name: EKG - Nurse/Tech; Complete Time: 17:11 rn 11/26 16:58 Order name: IV Saline Lock; Complete Time: 17:11 rn 11/26 16:58 Order name: Labs collected and sent; Complete Time: 17:11 rn 11/26 16:58 Order name: O2 Per Protocol; Complete Time: 17:20 rn 11/26 16:58 Order name: O2 Sat Monitoring; Complete Time: 17:20 rn 11/26 17:39 Order name: CT Head Angio; Complete Time: 18:39 rn 11/26 19:26 Order name: CONS Physician Consult EDMS EC:39 Rate is 75 beats/min. Rhythm is regular. Left axis deviation noted. QRS is positive in rn lead I and negative in lead aVF. DE interval is normal. QRS interval is normal. QT interval is normal. No Q waves. T waves are Normal. No ST changes noted. Clinical impression: NSR w/ Non-specific ST/T Changes. Interpreted by me. Administered Medications: 18:37 Drug: morphine 4 mg Route: IVP; Site: right forearm; kh1 18:37 Drug: Zofran (Ondansetron) 4 mg Route: IVP; Site: right forearm; kh1 19:15 Drug: Aspirin Chewable Tablet 324 mg Route: PO; bc5 Disposition Summary: 11/26/20 18:49 Hospitalization Ordered Hospitalization Status: Observation rn Provider: Bradly Agosto rn Location: Telemetry/MedSurg (observation) rn Condition: Stable rn Problem: new rn Symptoms: have improved rn Bed/Room Type: Standard rn Room Assignment: 229(11/27/20 01:18) tl1 Diagnosis - Chest pain, unspecified rn Forms: - Medication Reconciliation Form rn - SBAR form rn Signatures: Dispatcher [employer] EDGA Maria Elena Starr RN RN Tee Nichole MD MD rn Lasagna, Tonya RN RN tl1 Nereida Cobos [facility] Garcia Wall Bella RN RN bc5 Corrections: (The following items were deleted from the chart) 18:45 18:40 Constitutional: Negative for fever, chills, and weight loss, Eyes: Negative for rn injury, pain, redness, and discharge, Neck: Negative for injury, pain, and swelling, Cardiovascular: Positive for chest pain Respiratory: Negative for shortness of breath, cough, wheezing, and pleuritic chest pain, Abdomen/GI: Negative for abdominal pain, nausea, vomiting, diarrhea, and constipation, Back: Negative for injury and pain, : Negative for injury, bleeding, discharge, and swelling, MS/Extremity: Negative for injury and deformity, Skin: Negative for injury, rash, and discoloration, Neuro: Negative for headache, weakness, numbness, tingling, and seizure, rn 11/27 01:18 10 18:49 rn tl1
--- NOTE | 2020-11-26 18:50 | ER ---
Nurse's Notes [facility] Name: Jorge Schultz Jr Age: 55 yrs Sex: Male : 1965 Arrival Date: 11/26/2020 Time: 16:42 Bed 30 Private MD: Diagnosis: Chest pain, unspecified Presentation: 11/26 16:42 Chief complaint: Patient states: left chest pain with left arm pain started at 1100, sv left facial numbness started at 1400 and feels heavy. 16:42 Method Of Arrival: Ambulatory sv 16:44 Onset of symptoms was November 26, 2020. sv 16:44 Acuity: AALIYAH 2 sv 16:52 Initial Sepsis Screen: Does the patient meet any 2 criteria? No. Patient's initial sv sepsis screen is negative. Does the patient have a suspected source of infection? No. Patient's initial sepsis screen is negative. Risk Assessment: Do you want to hurt yourself or someone else? Patient reports no desire to harm self or others. 17:23 Ebola Screen: No symptoms or risks identified at this time. wr Triage Assessment: 16:42 General: Appears in no apparent distress. uncomfortable, Behavior is calm, cooperative, sv appropriate for age. Pain: Complains of pain in left arm and left leg. Neuro: Level of Consciousness is awake, alert, obeys commands, Oriented to person, place, time, situation, Acetylene Gas Compressor are mild weakness to L arm. Moves all extremities. Gait is steady, Speech is normal, Facial droop on left, Facial symmetry: tongue is midline, Reports numbness in left face and left arm. Respiratory: Respiratory effort is even, unlabored. Historical: - Allergies: 16:42 No Known Drug Allergies; sv - PMHx: 16:42 ADD/ADHD; Anxiety; CAD; Diabetes - NIDDM; GERD; Glaucoma; High Cholesterol; sv Hypertension; Myocardial infarction; - Immunization history:: Adult Immunizations up to date, Client reports receiving the Bubba \T\ Bubba single-dose vaccine. Pneumococcal vaccine is up to date, Flu vaccine is up to date. - Family history:: not pertinent. - Social history:: Smoking status: . - Code Status:: Full code. - Hospitalizations: : No recent hospitalization is reported. Screenin:18 Abuse screen: Denies threats or abuse. Nutritional screening: No deficits noted. On wr diabetic diet, Difficulty chewing/swallowing? No. Tuberculosis screening: No symptoms or risk factors identified. Fall Risk None identified. IV access (20 points). Ambulatory Aid- None/Bed Rest/Nurse Assist (0 pts). Gait- Normal/Bed Rest/Wheelchair (0 pts). Assessment: 16:44 Reassessment: Informed Dr Bragg of pt's symptoms and time frame. sv 17:16 General: Appears in no apparent distress. comfortable, Behavior is calm, cooperative, wr appropriate for age. Pain: Complains of pain in chest Pain does not radiate. Pain currently is 6 out of 10 on a pain scale. Quality of pain is described as sharp, Pain began 2-3 days ago. Cardiovascular: No deficits noted. Reports chest pain, shortness of breath, Denies nausea, vomiting, Capillary refill < 3 seconds Pulses are all present. Rhythm is sinus rhythm. 19:43 Reassessment: Pt sitting up in stretcher with eyes open, RR is even and unlabored, bc5 speaking in clear and complete sentences at this time, Pt requesting to eat, hospitalist to be paged. NAD, VSS, WCTM. No further needs at this time. 11/27 01:52 Reassessment: Report called to Ruby RN, Pt to room 228. bc5 Vital Signs: 11/26 16:52 BP 157 / 90; Pulse 75; Resp 20; Temp 98; Pulse Ox 100% ; sv 17:19 BP 157 / 90; Pulse 75; Resp 20; Temp 98.0; Pulse Ox 100% on R/A; wr 18:38 BP 110 / 78; Pulse 74; Resp 20; Pulse Ox 100% on R/A; kh1 19:40 BP 146 / 77; Pulse 73; Resp 16; Temp 98.2(O); Pulse Ox 97% on R/A; Pain 0/10; bc5 11/27 01:30 BP 140 / 88; Pulse 67; Resp 16; Temp 98.5(O); Pulse Ox 100% on R/A; Pain 0/10; bc5 Vitals: 11/26 17:19 Cardiac Rhythm Assessment Regular. ED Course: 16:42 Patient arrived in ED. sv 16:42 Arm band placed on. sv 16:45 Triage completed. sv 16:51 Tee Bragg MD is Attending Physician. rn 17:11 Basic Metabolic Panel Sent. es2 17:11 CBC with Diff Sent. es2 17:11 NT PRO-BNP Sent. es2 17:11 PT-INR Sent. es2 17:11 Magnesium Sent. es2 17:12 Troponin (emerg Dept Use Only) Sent. es2 17:16 Garcia Wall is Primary Nurse. wr 17:18 Inserted saline lock: 20 gauge in right forearm, using aseptic technique. Blood wr collected. 17:18 Patient maintains SpO2 saturation greater than 95% on room air. wr 17:19 XRAY Chest (1 view) Sent. wr 17:20 Patient has correct armband on for positive identification. Bed in low position. Call wr light in reach. Side rails up X 1. Adult w/ patient. 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 Pulse ox on. NIBP on. 17:20 Basic Metabolic Panel Sent. wr 17:20 CBC with Diff Sent. wr 17:20 Magnesium Sent. wr 17:20 NT PRO-BNP Sent. wr 17:20 PT-INR Sent. wr 17:20 Troponin (emerg Dept Use Only) Sent. wr 17:34 XRAY Chest (1 view) In Process Unspecified. EDMS 18:28 CT Head Brain wo Cont In Process Unspecified. EDMS 18:28 CT Head Angio In Process Unspecified. EDMS 18:49 Bradly Agosto is Hospitalizing Provider. rn Administered Medications: 18:37 Drug: morphine 4 mg Route: IVP; Site: right forearm; kh1 18:37 Drug: Zofran (Ondansetron) 4 mg Route: IVP; Site: right forearm; [facility] 19:15 Drug: Aspirin Chewable Tablet 324 mg Route: PO; [facility] Outcome: 18:49 Decision to Hospitalize by Provider. rn 11/27 02:15 Patient left the ED. 5 Signatures: Dispatcher [employer] EDMaria Elena Fagan RN RN Tee Bragg MD MD rn Harris, Kecia [facility] Garcia Wall Elizabeth Yarbrough RN RN bcAshli Jenkins RN RN es2 Corrections: (The following items were deleted from the chart) 11/26 16:45 16:42 Chief complaint: Patient states: left chest pain with left arm pain, left facial sv numbness and feels heavy started at 1400 today. sv
[2020-11-26] MEDS ORDERED: ONDANSETRON 4 MG/2 ML VIAL ONE ×2 (18:58→22:20)
[2020-11-26] MEDS ORDERED: MORPHINE 4 MG/ML SYR ONE (18:58)
[2020-11-26] MEDS ORDERED: ASPIRIN 81 MG CHEWABLE TABLET ONE ×2 (19:37→19:40)
--- NOTE | 2020-11-26 21:16 | P.HP ---
Certification for Inpatient Patient admitted to: Observation With expected LOS: <2 Midnights Patient will require the following post-hospital care: None Practitioner: I am a practitioner with admitting privileges, knowledge of patient current condition, hospital course, and medical plan of care. Services: Services provided to patient in accordance with Admission requirements found in Title 42 Section 412.3 of the Code of Federal Regulations <Quinton Mac - Last Filed: 11/26/20 21:11> Patient History Date of Service: 11/26/20 Primary Care Provider: Bharath Reason for admission: chest pain History of Present Illness: Mr. Schultz is a 55 yo M with CAD (CABG, stents placed 6 years ago), T2DM, HTN, HLD who presents with 10/10 sternal chest pressure and numbness radiating down the left arm. Pain began at rest and was constant until arrival. He reports nausea. For the past few days he has said he has had pressure on the R side of his head which he associates with his BP being high. He has not seen a medical researcher for 3 years. No recent baseline kidney function, and patient is unaware of any diagnosis of CKD. BUN 24, Cr 1.55, GFR 46. glu 269. BNP 658. Initial troponin wnl. - Past Medical/Surgical History Diabetic: Yes -: X3 MIs -: IDDM -: chronic back pain -: cataracts -: glaucoma rt eye -: cellulitis -: staph infection with CABG -: Glaucoma -: Staph infection wound chest -: cardiac cath -: lumbar epidural injection x3 -: CABG (May 29 2014) x 4 vessels -: cardiac stents 01/06 - Family History Mother -: Heart disease, Diabetes Father -: Stroke, Cancer Notes: Multiple CANCER Sister -: Cancer Notes: liver - Social History Smoking Status: Never smoker Alcohol use: No CD- Drugs: No Caffeine use: Yes Place of Residence: Home <Quinton Mac - Last Filed: 11/26/20 21:11> Date of Service: 11/26/20 <Kylee Hill - Last Filed: 12/09/20 04:18> Allergies No Known Drug Allergies Allergy (Verified 07/29/15 05:14) Unknown No Known Allergies Allergy (Uncoded 04/17/16 07:21) Unknown Home Medications: Amlodipine Besylate 10 mg PO DAILY 10/15/19 Aspirin [Aspirin EC 81 MG] 81 mg PO DAILY 10/15/19 Atorvastatin Calcium [Lipitor*] 20 mg PO BREAKFAST 10/15/19 Carisoprodol [Soma] 350 mg PO TIDP PRN 10/15/19 Clopidogrel Bisulfate [Plavix*] 75 mg PO BREAKFAST 10/15/19 Hydrocodone 10/APAP 325 [[place] 10/325*] 1 tab PO QIDP PRN 10/15/19 Insulin Glargine Human [Lantus*] 20 unit SQ BEDTIME 10/15/19 Liraglutide [Victoza 2-Imer] 1.8 mg SQ DAILY 10/15/19 Metformin HCl [Metformin HCl ER] 500 mg PO BIDWM 10/15/19 Metoprolol Tartrate 100 mg PO BEDTIME 10/15/19 Amlodipine [Norvasc*] 10 mg PO BREAKFAST 11/26/20 Losartan Potassium 100 mg PO BREAKFAST 11/26/20 Review of Systems 10-point ROS is otherwise unremarkable Cardiovascular: Chest Pain Gastrointestinal: Nausea <Quinton Mac - Last Filed: 11/26/20 21:11> Physical Examination - Physical Exam General: Alert, In no apparent distress HEENT: Atraumatic, PERRLA, Mucous membr. moist/pink, EOMI, Sclerae nonicteric Neck: Supple, 2+ carotid pulse no bruit, No LAD, Without JVD or thyroid abnormality Respiratory: Clear to auscultation bilaterally, Normal air movement Cardiovascular: Regular rate/rhythm, Normal S1 S2 Gastrointestinal: Normal bowel sounds, No tenderness Musculoskeletal: No tenderness Integumentary: No rashes Neurological: Normal speech, Normal strength at 5/5 x4 extr, Normal tone, Normal affect Lymphatics: No axilla or inguinal lymphadenopathy - Studies Laboratory Data (last 24 hrs) 11/26/20 17:08: PT 10.7, INR 0.93 11/26/20 17:08: WBC 6.30, Hgb 15.9, Hct 45.7, Plt Count 201 11/26/20 17:08: Sodium 136, Potassium 4.5, BUN 24 H, Creatinine 1.55 H, Glucose 269 H, Magnesium 1.9 <Quinton Mac - Last Filed: 11/26/20 21:11> Assessment and Plan - Problems (Diagnosis) (1) Chest pain Onset Date: 07/29/15 Status: Acute Qualifiers: Chest pain type: unspecified Qualified Code(s): R07.9 - Chest pain, unspecified (2) Diabetes mellitus type 2 in obese Status: Chronic (3) Coronary artery disease Onset Date: 12/31/14 Status: Chronic Qualifiers: Coronary Disease-Associated Artery/Lesion type: bypass graft [place] vs. transplanted heart: [place] heart Associated angina: with unstable angina Qualified Code(s): I25.700 - Atherosclerosis of coronary artery bypass graft(s), unspecified, with unstable angina pectoris (4) Hypercholesterolemia Onset Date: 12/31/14 Status: Chronic (5) Hypertension Onset Date: 12/31/14 Status: Chronic Qualifiers: Hypertension type: primary hypertension Qualified Code(s): I10 - Essential (primary) hypertension - Plan on telemetry, cardiology consulted trend troponins, repeat EKG in the AM daily ASA, BB, statin PRN morphine and NTG lipid panel and thyroid panel pending BP stable, hydralazine PRN for BP spikes sliding scale insulin and accuchecks, A1c pending ECHO in the AM, monitor kidney function, may be baseline or require addition of Lasix reconcile and continue home medications DVT ppx Discharge Plan: Home Plan to discharge in: 24 Hours - Advance Directives Does patient have a Living Will: No Does patient have a Durable POA for Healthcare: No - Code Status/Comfort Care Code Status Assessed: Yes (full code ) Critical Care: No Time Spent Managing Pts Care (In Minutes): 70 <Quinton Mac - Last Filed: 11/26/20 21:11> Date of Service: 11/26/20 Agree with HPI as above Vitals: Reviewed Physical exam: Patient is awake and alert oriented to person place and time Cardiovascular: Regular rate and rhythm no murmurs Lungs: Clear bilaterally Abdomen: Soft, nontender, nondistended, bowel sounds positive Neuro: No focal deficits Assessment: 1. Chest pain and rule out acute coronary syndrome Plan: - Serial troponins and EKG - Appreciate Cardiology consultation - Echocardiogram and stress test if cardiology is agreeable - Anti-platelet therapy, anti coagulation, beta-michelle, statin, and O2 as needed - IV morphine for pain - Nitro p.r.n. <Kylee Hill - Last Filed: 12/09/20 04:18>
[2020-11-26 21:32] VITALS: BMI 34.9
[2020-11-26] MEDS ORDERED: ATORVASTATIN 40 MG TAB PO SCH (21:32)
[2020-11-26] MEDS ORDERED: HYDRALAZINE HCL 20 MG/ML VIAL IV PRN (21:32)
[2020-11-26] MEDS ORDERED: NITROGLYCERIN 0.4 MG/TAB SL PRN (21:32)
[2020-11-26] MEDS ORDERED: ACETAMINOPHEN 500 MG TAB PO PRN (21:32)
[2020-11-26] MEDS ORDERED: INSULIN -REGULAR HUMAN 50 UNIT/0.5 ML ML SQ SCH (21:32)
[2020-11-26] MEDS: MORPHINE 2 MG/ML SYR IV PRN (22:00)
[2020-11-26] MEDS: ONDANSETRON 4 MG/2 ML VIAL IV PRN (22:00)
[2020-11-26] MEDS ORDERED: MORPHINE 2 MG/ML SYR ONE (22:20)
[2020-11-26] MEDS ORDERED: D50W 25 GM/50 ML SYRINGE IV PRN (22:52)
[2020-11-26] MEDS ORDERED: carisoprodoL 350 MG TAB PO PRN (22:52)
[2020-11-26] MEDS ORDERED: HYDROCODONE/APAP 10/325 TAB PO PRN (22:52)
[2020-11-26] MEDS ORDERED: GLUCAGON 1 MG/VIAL IM PRN (22:52)
[2020-11-26 23:45] LABS: Urine Blood Trace-intact (Negative); Urine Glucose 3+ (Negative); Urine Protein Negative (Negative); Urine pH 5.5 (5.0-7.0)
[2020-11-27] MEDS: METFORMIN ER 500 MG TAB PO SCH ×3 (00:01→17:00)
[2020-11-27] MEDS ORDERED: METOPROLOL TAR 50 MG TAB ONE (00:20)
[2020-11-27] MEDS ORDERED: METFORMIN HCL 500 MG TAB ONE (00:21)
[2020-11-27] MEDS: HEPARIN 5000 UNIT/ML 1 ML VIAL SQ SCH ×3 (02:41→17:00)
[2020-11-27] MEDS: MORPHINE 2 MG/ML SYR IV PRN ×2 (03:35→09:39)
[2020-11-27] MEDS: ONDANSETRON 4 MG/2 ML VIAL IV PRN ×2 (03:36→09:39)
[2020-11-27 05:02] LABS: Basophils % 0.7 % (0-1.3); Hematocrit 42.9 % (39.6-49.0); Lymphocytes % 31.1 % (15.3-44.8); MPV 7.5 fL (7.6-11.3); RBC Red Blood Cell Count 4.81 M/uL (4.33-5.43)
[2020-11-27 05:38] LABS: ALT/SGPT 25 U/L (12-78); AST/SGOT 16 U/L (15-37); Albumin 3.4 g/dL (3.4-5.0); Alkaline Phosphatase 70 U/L (45-117); BUN Blood Urea Nitrogen 22 mg/dL (7-18); Bicarbonate 27 mmol/L (21-32); Bilirubin Total 0.1 mg/dL (0.2-1.0); Glucose Level 228 mg/dL (74-106); HDL Cholesterol 34 mg/dL (40-60); LDL Cholesterol, Calculated 39 (<130); Magnesium 1.9 mg/dL (1.8-2.4); Potassium 4.6 mmol/L (3.5-5.1); Protein, Total 7.2 g/dL (6.4-8.2); Sodium Level 136 mmol/L (136-145); Troponin I < 0.02 ng/mL (0.0-0.045)
[2020-11-27] MEDS ORDERED: METOPROLOL TAR 25 MG TAB PO SCH (06:00)
[2020-11-27] MEDS ORDERED: CLOPIDOGREL 75 MG TABLET PO SCH (08:00)
[2020-11-27] MEDS ORDERED: INFLUENZA VACCINE (for 6+ mo) 0.5 ML DOSE IMVAC ONE (08:00)
[2020-11-27] MEDS ORDERED: LOSARTAN POTASSIUM 50 MG TABLET PO SCH (08:00)
[2020-11-27] MEDS ORDERED: ATORVASTATIN 20 MG TAB PO SCH (08:00)
[2020-11-27] MEDS ORDERED: AMLODIPINE 10 MG TAB PO SCH (09:00)
[2020-11-27] MEDS ORDERED: ASPIRIN EC 81 MG TAB PO SCH (09:00)
[2020-11-27] MEDS ORDERED: HOME MED 1 EA UNK (Liraglutide [Victoza 2-Pak] 0.6 MG/0.1 ML Pen.Injctr) SQ SCH (09:00)
[2020-11-27 13:53] VITALS: O2SAT 99
[2020-11-27 16:41] VITALS: BP 168/91; TEMP 96.5
--- NOTE | 2020-11-27 16:44 | EKG ---
Test Date: 2020-11-26 Test Time: 16:59:50 Travel Consultant: MOIZ MEASUREMENT RESULTS: Intervals: Rate: 75 MT: 144 QRSD: 112 QT: 384 QTc: 428 [place]: P: 32 MT: 144 QRS: -68 T: -15 INTERPRETIVE STATEMENTS: Normal sinus rhythm Left anterior fascicular block Possible Anterior infarct, age undetermined Abnormal ECG Compared to ECG 03/25/2020 17:54:01 No significant changes Electronically Signed On 11-27-20 16:42:52 CDT by Eduardo Brush
[2020-11-27] MEDS ORDERED: METOPROLOL TAR 50 MG TAB PO SCH (21:00)
[2020-11-27] MEDS ORDERED: INSULIN GLARGINE 100 UNITS/ML SQ SCH (21:00)
--- NOTE | 2020-11-28 08:12 | ECHO ---
HEIGHT: 5 ft 5 in WEIGHT: 210 lb 0 oz DATE OF STUDY: 11/27/[address]: Quinton Mac 2-DIMENSIONAL: YES M.MODE: YES DOPPLER: YES COLOR FLOW: YES TDS: NO PORTABLE: NO DEFINITY: NO BUBBLE STUDY: NO DIAGNOSIS: CORONARY ATERY DISEASE CARDIAC HISTORY: CATHERIZATION: YES SURGERY: CABG PROSTHETIC VALVE: NO PACEMAKER: NO MEASUREMENTS (cm) DIASTOLIC (NORMALS) SYSTOLIC (NORMALS) IVSd 1.0 (0.6-1.2) LA Diam 3.5 (1.9-4.0) LVEF 57% LVIDd 4.9 (3.5-5.7) LVIDs 3.4 (2.0-3.5) %FS 30% LVPWd 1.1 (0.6-1.2) Ao Diam 2.7 (2.0-3.7) 2 DIMENSIONAL ASSESSMENT: RIGHT ATRIUM: LEFT ATRIUM: RIGHT VENTRICLE: LEFT VENTRICLE: TRICUSPID VALVE: MITRAL VALVE: PULMONIC VALVE: AORTIC VALVE: PERICARDIAL EFFUSION: AORTIC ROOT: LEFT VENTRICULAR WALL MOTION: DOPPLER/COLOR FLOW: MILD TRICUSPID REGURGITATION. COMMENTS: NORMAL 2D ECHO. MILD TRICUSPID REGURGITATION - NORMAL RIGHT VENTRICULAR SYSTOLIC PRESSURE. TECHNOLOGIST: CAMMY RUFF
--- NOTE | 2020-11-29 16:06 | CON ---
Date of Consultation: 11/27/2020 Admitted on 11/26/[address] Hill. History Of Present Illness: Mr. Schultz is very well known to me from previous office visits and admi ssion. He is 55. Has had a history of CAD and CABG in the past. Has a history of diabetes, hyperte nsion, dyslipidemia, attention deficit disorder, and gastroesophageal reflux disease. His last elier terization was done by Dr. Adair. No intervention was done. He was treated with medical therapy. He came in with left lateral chest pain that is worse on deep inspiration. No nausea, vomiting, diap horesis, PND, orthopnea, pedal edema, palpitations, or syncope. He has already ruled out for an NV. Allergies: NONE. Review of Systems: Negative. Social History: Negative. Family History: Negative. Medications: At home include aspirin, Lipitor, Norvasc, Plavix, insulin, Victoza, losartan, metformi n, and metoprolol 100 mg b.i.d. Physical Examination: Vital Signs: Stable, afebrile. HEENT: Negative. Neck: Supple without any bruit, lymphadenopathy, JVD, or thyromegaly. Chest: Clear to auscultation and percussion. Cardiac: Revealed a regular rhythm and rate. No murmurs, gallops, or rubs. Abdomen: Benign. Extremities: Revealed no clubbing, cyanosis, or edema. Diagnostic Data: All within normal limit. Impression And Plan: Atypical chest pain in a patient with history of coronary artery disease, last evaluated about a year and a half ago. Has ruled out for myocardial infarction. I would continue hi s present regimen. The patient is intolerant to Imdur and Ranexa. I have tried those before. He ca n increase his metoprolol as needed for chest pain. Continue his regimen regarding his attention def icit disorder, gastroesophageal reflux disease, hypertension, dyslipidemia, and diabetes. He can be discharged whenever it is okay with Dr. Hill. Echocardiogram is pending. [facility]. He needs an outpatient Lexiscan. PATRICIA/CORTES Voice ID: [id number] Report ID: [id number]
--- NOTE | 2020-12-09 04:17 | P.DS ---
Discharge Date: 11/27/20 Primary Care Provider: Bharath Disposition: ROUTINE DISCHARGE Discharge Condition: GOOD Reason for Admission: chest pain Consultations: Cardiology Brief History of Present Illness: Mr. Schultz is a 55 yo M with CAD (CABG, stents placed 6 years ago), T2DM, HTN, HLD who presents with 10/10 sternal chest pressure and numbness radiating down the left arm. Pain began at rest and was constant until arrival. He reports nausea. For the past few days he has said he has had pressure on the R side of his head which he associates with his BP being high. He has not seen a microphone operator for 3 years. No recent baseline kidney function, and patient is unaware of any diagnosis of CKD. BUN 24, Cr 1.55, GFR 46. glu 269. BNP 658. Initial troponin wnl. Hospital Course: Patient was ruled out for acute coronary syndrome. Patient's echocardiogram did not reveal any significant abnormality. Patient is feeling better and is stable for discharge home. Patient will follow with cardiology in 1-2 weeks. Vital Signs/Physical Exam: Temp Pulse Resp BP Pulse Ox 96.5 F L 72 18 168/91 H 98 11/27/20 16:00 11/27/20 16:00 11/27/20 16:00 11/27/20 16:00 11/27/20 16:00 General: Alert, In no apparent distress, Oriented x3 Laboratory Data at Discharge: WBC 6.40 K/uL (4.3-10.9) 11/27/20 04:51 Hgb 14.9 g/dL (13.6-17.9) 11/27/20 04:51 Hct 42.9 % (39.6-49.0) 11/27/20 04:51 Plt Count 192 K/uL (152-406) 11/27/20 04:51 PT 10.7 SECONDS (9.5-12.5) 11/26/20 17:08 INR 0.93 11/26/20 17:08 Sodium 136 mmol/L (136-145) 11/27/20 04:51 Potassium 4.6 mmol/L (3.5-5.1) 11/27/20 04:51 BUN 22 mg/dL (7-18) H 11/27/20 04:51 Creatinine 1.28 mg/dL (0.55-1.3) 11/27/20 04:51 Glucose 228 mg/dL (74-106) H 11/27/20 04:51 Phosphorus 3.6 mg/dL (2.5-4.9) 11/26/20 23:35 Magnesium 1.9 mg/dL (1.8-2.4) 11/27/20 04:51 Total Bilirubin 0.1 mg/dL (0.2-1.0) L 11/27/20 04:51 AST 16 U/L (15-37) 11/27/20 04:51 ALT 25 U/L (12-78) 11/27/20 04:51 Alkaline Phosphatase 70 U/L (45-117) 11/27/20 04:51 Troponin I < 0.02 ng/mL (0.0-0.045) 11/27/20 04:51 Triglycerides 383 mg/dL (<150) H 11/27/20 04:51 Cholesterol 150 mg/dL (<200) 11/27/20 04:51 HDL Cholesterol 34 mg/dL (40-60) L 11/27/20 04:51 Cholesterol/HDL Ratio 4.41 11/27/20 04:51 Home Medications: Amlodipine Besylate 10 mg PO DAILY 10/15/19 Aspirin [Aspirin EC 81 MG] 81 mg PO DAILY 10/15/19 Atorvastatin Calcium [Lipitor*] 20 mg PO BREAKFAST 10/15/19 Carisoprodol [Soma] 350 mg PO TIDP PRN 10/15/19 Clopidogrel Bisulfate [Plavix*] 75 mg PO BREAKFAST 10/15/19 Hydrocodone 10/APAP 325 [[place] 10/325*] 1 tab PO QIDP PRN 10/15/19 Insulin Glargine Human [Lantus*] 20 unit SQ BEDTIME 10/15/19 Liraglutide [Victoza 2-Imer] 1.8 mg SQ DAILY 10/15/19 Metformin HCl [Metformin HCl ER] 500 mg PO BIDWM 10/15/19 Metoprolol Tartrate 100 mg PO BEDTIME 10/15/19 Amlodipine [Norvasc*] 10 mg PO BREAKFAST 11/26/20 Losartan Potassium 100 mg PO BREAKFAST 11/26/20 Physician Discharge Instructions: -OK TO DC IV AND DC HOME -FOLLOW-UP WITH PCP IN 1-2 WEEKS -FOLLOW-UP WITH CARDIOLOGY IN 1-2 WEEKS -PLEASE MAKE SURE ALL DIAGNOSTIC STUDIES ARE AVAILABLE AND HAVE BEEN REVIEWED WITH PATIENT PRIOR TO DISCHARGE -RETURN TO THE ER IF symptoms worsens -CALL DR. ARROYO AT [phone] IF ANY QUESTIONS REGARDING HOSPITAL STAY -PLEASE CALL THE FLOOR AT [phone] IF ANY MEDICATION OR NURSING QUESTIONS Diet: AHA Activity: Fall precautions Followup: Eduardo Brush MD [ACTIVE - CAN ADMIT] - Felipe Sinha MD [Primary Care Provider] - Time spent managing pt's care (in minutes): 35
== END 2020-11-27 17:17 | disposition home or self-care (01) ==
LOC: ER 16:39 → ERHOLD 19:25 → 2ND 11-27 01:33
PROVIDERS: ADMIT Hospitalist; ATTEND Hospitalist
DX: R07.89 Other chest pain (principal); I10 Essential (primary) hypertension; I25.10 Atherosclerotic heart disease of native coronary artery without angina pectoris; E11.9 Type 2 diabetes mellitus without complications; E78.00 Pure hypercholesterolemia, unspecified; E78.5 Hyperlipidemia, unspecified; I25.2 Old myocardial infarction; G89.29 Other chronic pain; M54.9 Dorsalgia, unspecified; K21.9 Gastro-esophageal reflux disease without esophagitis; H40.9 Unspecified glaucoma; F90.9 Attention-deficit hyperactivity disorder, unspecified type; E66.9 Obesity, unspecified; Z68.34 Body mass index [BMI] 34.0-34.9, adult; Z20.822 Contact with and (suspected) exposure to COVID-19; Z95.1 Presence of aortocoronary bypass graft; Z95.5 Presence of coronary angioplasty implant and graft; Z79.02 Long term (current) use of antithrombotics/antiplatelets; Z79.82 Long term (current) use of aspirin; Z79.4 Long term (current) use of insulin; Z79.899 Other long term (current) drug therapy; Z82.49 Family history of ischemic heart disease and other diseases of the circulatory system; Z82.3 Family history of stroke; Z83.3 Family history of diabetes mellitus; Z80.0 Family history of malignant neoplasm of digestive organs; Z80.9 Family history of malignant neoplasm, unspecified
CPT/HCPCS: 36415; 70450; 70496; 71045; 80048; 80053; 80061; 81003; 82947; 83036; 83735; 83880; 84100; 84439; 84443; 84484; 85025; 85610; 93005; 93306; 94760; 96374; 96375; 99285; G0378; J1644; J2270; J2405; Q9967; U0003

== ENCOUNTER 2021-05-01 17:22 | Inpatient (IN) | payer SELFPAY ==
[2021-05-01] MEDS ORDERED: ASPIRIN 81 MG CHEWABLE TABLET ONE (17:54)
[2021-05-01] MEDS ORDERED: ONDANSETRON 4 MG/2 ML VIAL ONE (17:55)
[2021-05-01] MEDS ORDERED: MORPHINE 4 MG/ML SYR ONE (17:55)
[2021-05-01 18:16] LABS: Absolute Lymphocytes (CBC) 1.9 K/uL (0.7-4.9); Hematocrit 43.9 % (39.6-49.0); Lymphocytes % 24.7 % (15.3-44.8); MPV 7.7 fL (7.6-11.3); RBC Red Blood Cell Count 4.83 M/uL (4.33-5.43)
[2021-05-01 18:17] LABS: Protime INR 0.96
[2021-05-01 18:28] LABS: ALT/SGPT 27 U/L (12-78); AST/SGOT 18 U/L (15-37); Albumin 3.5 g/dL (3.4-5.0); Alkaline Phosphatase 85 U/L (45-117); BUN Blood Urea Nitrogen 18 mg/dL (7-18); Bicarbonate 24 mmol/L (21-32); Bilirubin Total 0.3 mg/dL (0.2-1.0); Glucose Level 204 mg/dL (74-106); Magnesium 1.6 mg/dL (1.8-2.4); Potassium 3.6 mmol/L (3.5-5.1); Protein, Total 7.9 g/dL (6.4-8.2); Sodium Level 131 mmol/L (136-145)
[2021-05-01 18:29] LABS: Bilirubin Direct < 0.1 mg/dL (0-0.2); NT PRO-BNP 535 pg/mL (<125)
--- NOTE | 2021-05-01 18:59 | RAD REPORT ---
EXAM DESCRIPTION: CTAngio Aorta For Dissection - 05/01/2021 6:47 pm CLINICAL HISTORY: CHEST PAIN COMPARISON: Angio Aorta For Dissection dated 10/15/2019 TECHNIQUE: CTA of the chest, abdomen, and pelvis was performed with IV contrast. Reconstructions wer e performed. All CT scans are performed using dose optimization technique as appropriate and may include automated exposure control or mA/KV adjustment according to patient size. FINDINGS: Thorax: Chest Wall: 9 mm right thyroid nodule. Lungs: No acute abnormality. Pleura: No effusions or pneumothorax. Mel/Mediastinum: No lymphadenopathy. Aorta/Pulmonary Arteries: Unremarkable Heart: Normal size. Multi-vessel coronary artery. Sternotomy. Abdomen/Pelvis: Liver: No acute abnormality or suspicious lesions. Biliary: No biliary ductal dilatation. Stomach: No significant focal abnormality. Duodenum: No significant focal abnormality. Pancreas: No significant abnormality. Spleen: No significant abnormality. Adrenal: No suspicious lesions. Kidney/ureter: No hydronephrosis. No renal calculi. Retroperitoneum: No retroperitoneal adenopathy. Vascular: No aneurysm. Bowel: No significant focal abnormality. Normal appendix . Peritoneum: No ascites or free air. Bladder: Grossly unremarkable. Reproductive: No adnexal masses. Bones: No acute fracture. Sternotomy. Other: n/a IMPRESSION: No evidence of aortic aneurysm or dissection. No acute findings within the chest, abdome n, or pelvis.
[2021-05-01] MEDS ORDERED: Magnesium Sulfate 2gm IVPB 2 G/50 ML BAG IV ONE (19:06)
[2021-05-01 19:10] LABS: SARS-COV-2 RT PCR NEGATIVE (NEGATIVE)
--- NOTE | 2021-05-01 19:20 | ER ---
Nurse's Notes [facility] Name: Jorge Schultz Jr Age: 56 yrs Sex: Male : 1965 Arrival Date: 05/01/2021 Time: 17:25 Bed 24 Private MD: Diagnosis: Angina pectoris, unspecified Presentation: 05/01 17:28 Chief complaint: Patient states: Midsternal chest pain radiates to back X 1 week. Today ld1 it became worse. Coronavirus screen: At this time, the client does not indicate any symptoms associated with coronavirus-19. Ebola Screen: No symptoms or risks identified at this time. Initial Sepsis Screen: Does the patient meet any 2 criteria? No. Patient's initial sepsis screen is negative. Does the patient have a suspected source of infection? No. Patient's initial sepsis screen is negative. Risk Assessment: Do you want to hurt yourself or someone else? Patient reports no desire to harm self or others. Onset of symptoms was May 01, 2021. 17:28 Method Of Arrival: Ambulatory ld1 17:28 Acuity: AALIYAH 3 ld1 Triage Assessment: 17:28 General: Appears in no apparent distress. comfortable, Behavior is calm, cooperative, ld1 appropriate for age. Pain: Complains of pain in chest Pain radiates to back Pain currently is 7 out of 10 on a pain scale. Quality of pain is described as heavy, Pain began 7 days ago. Neuro: Level of Consciousness is awake, alert, obeys commands, Oriented to person, place, time, situation. Cardiovascular: Capillary refill < 3 seconds Patient's skin is warm and dry. Respiratory: Airway is patent Respiratory effort is even, unlabored, Respiratory pattern is regular, symmetrical. Historical: - Allergies: 17:28 No Known Allergies; ld1 - PMHx: 17:28 ADD/ADHD; Anxiety; CAD; Diabetes - NIDDM; GERD; Glaucoma; High Cholesterol; ld1 Hypertension; Myocardial infarction; - PSHx: 17:28 CABG; ld1 - Immunization history:: Adult Immunizations not up to date, Client reports receiving the 1st dose of the Covid vaccine. - Social history:: Smoking status: Patient denies any tobacco usage or history of. Patient/guardian denies using alcohol. Screenin:48 Abuse screen: Denies threats or abuse. Nutritional screening: No deficits noted. Fall lr4 Risk None identified. 20:17 Tuberculosis screening: No symptoms or risk factors identified. lr4 Vital Signs: 17:28 BP 155 / 92; Pulse 83; Resp 18; Temp 98.0(O); Pulse Ox 99% on R/A; Weight 95.25 kg; ld1 Height 5 ft. 5 in. (165.10 cm); Pain 7/10; 18:33 BP 122 / 80; Pulse 84; Resp 18; Pulse Ox 100% on R/A; Pain 5/10; lr4 19:39 Pain 5/10; lr4 05/02 04:29 BP 121 / 76; Pulse 76; Resp 14; Pulse Ox 100% ; cg1 05/01 17:28 Body Mass Index 34.95 (95.25 kg, 165.10 cm) ld1 ED Course: 05/01 17:25 Patient arrived in ED. kz 17:28 Arm band placed on right wrist. ld1 17:31 Triage completed. ld1 17:32 Maury Lowery PA is PHCP. cp 17:32 Ruddy Billy DO is Attending Physician. cp 17:44 Initial lab(s) drawn, EKG done, by ED staff. lr4 17:48 Maryann Aelx, RITA is Primary Nurse. lr4 18:47 CT Aorta for Dissection In Process Unspecified. EDMS 19:14 XRAY Chest (1 view) In Process Unspecified. EDMS 19:19 Kylee Hill MD is Hospitalizing Provider. cp 20:15 No provider procedures requiring assistance completed. Patient maintains SpO2 lr4 saturation greater than 95% on room air. 20:16 Patient has correct armband on for positive identification. Bed in low position. Call lr4 light in reach. Side rails up X 1. monitor technician on. Pulse ox on. NIBP on. Door closed. Noise minimized. Warm blanket given. Pillow given. 05/02 07:00 Patient admitted, IV remains in place. jl7 Administered Medications: 05/01 17:59 Drug: morphine 4 mg Route: IVP; Site: right antecubital; lr4 18:36 Follow up: Response: Pain is decreased; RASS: Alert and Calm (0) lr4 17:59 Drug: Zofran (Ondansetron) 4 mg Route: IVP; Site: right antecubital; lr4 18:33 Follow up: BP 122 / 80; Pulse 84 bpm; Resp 18 bpm; Pulse Ox 100% RA; Pain 5/10 Adult lr4 18:00 Drug: Aspirin Chewable Tablet 324 mg Route: PO; lr4 18:36 Follow up: Response: No adverse reaction lr4 19:17 Drug: Magnesium Sulfate 2 grams Route: IVPB; Infused Over: 2 hrs; Site: right lr4 antecubital; 19:21 Drug: Nitroglycerin 0.4 mg Route: Sublingual; lr4 19:39 Follow up: Response: Pain is decreased lr4 Outcome: 19:20 Decision to Hospitalize by Provider. cp 20:15 Condition: stable lr4 05/02 07:00 Admitted to ER Hold. Please see [facility] for further documentation. jl7 Discharge instructions given to patient, Instructed on the need for admit. 12:04 Patient left the ED. jl7 Signatures: Dispatcher [employer] EDMS Maury Lowery PA PA cp Leal, Jahala RN RN jl7 Rios Davis 1 Maria G Franco RN RN ld1 Maryann Alex RN RN lr4 Michelle Panchal
--- NOTE | 2021-05-01 19:20 | EDPHYS ---
Physician Documentation [facility] Name: Jroge Schultz Jr Age: 56 yrs Sex: Male : 1965 Arrival Date: 05/01/2021 Time: 17:25 Bed 24 Private MD: ED Physician Ruddy Billy HPI: 05/01 17:55 This 56 yrs old Male presents to ER via Ambulatory with complaints of Chest cp Pain, Cough. 17:55 The patient or guardian reports chest pain that is located primarily in the substernal cp area. 17:55 Onset: 1 week(s) ago, and became worse today. cp 17:55 The pain radiates to Associated signs and symptoms: Pertinent positives: cough, cp shortness of breath, Pertinent negatives: abdominal pain, diaphoresis, dizziness, headache, lower extremity pain, lower extremity swelling, syncope, vomiting. 17:55 The chest pain is described as a heaviness. cp 17:55 Duration: The patient or guardian reports multiple episodes, that wax and wane. cp Historical: - Allergies: 17:28 No Known Allergies; ld1 - PMHx: 17:28 ADD/ADHD; Anxiety; CAD; Diabetes - NIDDM; GERD; Glaucoma; High Cholesterol; ld1 Hypertension; Myocardial infarction; - PSHx: 17:28 CABG; ld1 - Immunization history:: Adult Immunizations not up to date, Client reports receiving the 1st dose of the Covid vaccine. - Social history:: Smoking status: Patient denies any tobacco usage or history of. Patient/guardian denies using alcohol. ROS: 18:00 Constitutional: Negative for body aches, chills, fever, poor PO intake. cp 18:00 Eyes: Negative for injury, pain, redness, and discharge. cp 18:00 ENT: Negative for drainage from ear(s), ear pain, sore throat, difficulty swallowing, difficulty handling secretions. 18:00 Cardiovascular: Positive for chest pain, Negative for edema, palpitations. 18:00 Respiratory: Positive for cough, with no reported sputum, Negative for shortness of breath, wheezing. 18:00 Abdomen/GI: Negative for abdominal pain, nausea, vomiting, and diarrhea. Exam: 17:50 ECG was reviewed by the Attending Physician. cp 18:05 Constitutional: The patient appears in no acute distress, alert, awake, cp non-diaphoretic, non-toxic, well developed, well nourished. 18:05 Head/Face: Normocephalic, atraumatic. cp 18:05 Eyes: Periorbital structures: appear normal, Conjunctiva: normal, no exudate, no injection, Sclera: no appreciated abnormality, Lids and lashes: appear normal, bilaterally. 18:05 ENT: External ear(s): are unremarkable, Ear canal(s): are normal, clear, TM's: dullness, bilaterally, Nose: is normal, Mouth: Lips: moist, Oral mucosa: pink and intact, moist, Posterior pharynx: Airway: no evidence of obstruction, patent, Tonsils: are normal in appearance, erythema, is not appreciated, exudate, is not appreciated. 18:05 Neck: ROM/movement: is normal, is supple, without pain, no range of motions limitations. 18:05 Chest/axilla: Inspection: normal, Palpation: is normal, no crepitus, no tenderness. 18:05 Cardiovascular: Rate: normal, Rhythm: regular, Edema: is not appreciated, JVD: is not appreciated. 18:05 Respiratory: the patient does not display signs of respiratory distress, Respirations: normal, no use of accessory muscles, no retractions, labored breathing, is not present, Breath sounds: bronchial sounds, that are mild, are heard diffusely, stridor, is not appreciated, wheezing: is not appreciated. 18:05 Abdomen/GI: Inspection: abdomen appears normal, Palpation: abdomen is soft and non-tender, in all quadrants. 18:05 Back: pain, that is moderate, ROM is normal. 18:05 Neuro: Orientation: to person, place \\T\\ time. Mentation: is normal, Cerebellar function: is grossly normal, Motor: moves all fours, strength is normal, Sensation: is normal. Vital Signs: 17:28 BP 155 / 92; Pulse 83; Resp 18; Temp 98.0(O); Pulse Ox 99% on R/A; Weight 95.25 kg; ld1 Height 5 ft. 5 in. (165.10 cm); Pain 7/10; 18:33 BP 122 / 80; Pulse 84; Resp 18; Pulse Ox 100% on R/A; Pain 5/10; lr4 19:39 Pain 5/10; lr4 03/11 04:29 BP 121 / 76; Pulse 76; Resp 14; Pulse Ox 100% ; cg1 05/01 17:28 Body Mass Index 34.95 (95.25 kg, 165.10 cm) ld1 MDM: 05/01 17:43 Patient medically screened. 18:00 Differential diagnosis: abnormal EKG, acute myocardial infarction, pleurisy, pneumonia, cp pneumothorax, pulmonary embolus, stable angina, thoracic aortic disection, unstable angina. 19:15 Data reviewed: vital signs, nurses notes, lab test result(s), EKG, radiologic studies, cp plain films. 19:15 The patient was given aspirin in the Emergency Department. Test interpretation: by ED cp physician or midlevel provider: ECG, plain radiologic studies. Response to treatment: the patient's symptoms have mildly improved after treatment. Physician consultation: Jaqueline WEBSTER was called at 19:15, was contacted at 19:15, regarding admission, to the telemetry unit. patient's condition. 05/01 17:53 Order name: COVID-19/FLU A+B (Document "Date of Onset" if Symptomatic); Complete Time: 05/01 19:11 Interpretation: Reviewed. 05/01 18:17 Order name: Protime (+INR); Complete Time: 18:54 EDTN 05/01 18:21 Order name: Basic Metabolic Panel; Complete Time: 18:54 EDTN 05/01 18:54 Interpretation: Normal except: NA 131; GLUC 204; GFR 60. 05/01 18:21 Order name: Liver (Hepatic) Function; Complete Time: 18:54 [facility] 05/01 18:55 Interpretation: Normal except: GLOB 4.4; A/G 0.8. 05/01 18:21 Order name: Troponin High Sensitivity; Complete Time: 18:54 EDTN 05/01 19:12 Interpretation: Within normal limits: Troponin HS 9.30. 05/01 18:21 Order name: NT PRO-BNP; Complete Time: 18:54 EDTN 05/01 18:21 Order name: Magnesium; Complete Time: 18:54 [facility] 05/01 17:49 Order name: XRAY Chest (1 view) 05/01 17:52 Order name: CT Aorta for Dissection; Complete Time: 19: 05/01 19:11 Interpretation: Report reviewed. cp 05/01 18:21 Order name: CBC with Automated Diff; Complete Time: 18:54 EDMS 05/02 03:20 Order name: CBC with Automated Diff EDTN 05/02 03:29 Order name: Troponin High Sensitivity EDTN 05/02 03:31 Order name: Glucose, Ancillary Testing EDMS 05/02 03:37 Order name: Comprehensive Metabolic Panel EDTN 05/02 03:37 Order name: Creatine Phosphokinase EDTN 05/02 03:37 Order name: CKMB Creatine Kinase MB EDTN 05/02 03:37 Order name: Lipid Profile EDTN 05/02 03:37 Order name: T4 Free EDTN 05/02 03:37 Order name: Magnesium EDTN 05/02 03:37 Order name: Thyroid Stimulating Hormone EDTN 05/02 09:11 Order name: Glucose, Ancillary Testing EDMS 05/02 09:49 Order name: Troponin High Sensitivity EDTN 05/01 17:49 Order name: EKG; Complete Time: 18:21 cp 05/01 17:49 Order name: Cardiac monitoring; Complete Time: 18:00 cp 05/01 17:49 Order name: EKG - Nurse/Tech; Complete Time: 18:00 cp 05/01 17:49 Order name: IV Saline Lock; Complete Time: 18:00 cp 05/01 17:49 Order name: Labs collected and sent; Complete Time: 18:00 cp 05/01 17:49 Order name: O2 Per Protocol; Complete Time: 18:00 cp 05/01 17:49 Order name: O2 Sat Monitoring; Complete Time: 18:00 cp EC:50 Rate is 75 beats/min. Rhythm is regular. LA interval is normal. QRS interval is cp prolonged at 120 msec. QT interval is normal. Interpreted by me. Reviewed by me. Administered Medications: 17:59 Drug: morphine 4 mg Route: IVP; Site: right antecubital; lr4 18:36 Follow up: Response: Pain is decreased; RASS: Alert and Calm (0) lr4 17:59 Drug: Zofran (Ondansetron) 4 mg Route: IVP; Site: right antecubital; lr4 18:33 Follow up: BP 122 / 80; Pulse 84 bpm; Resp 18 bpm; Pulse Ox 100% RA; Pain 5/10 Adult lr4 18:00 Drug: Aspirin Chewable Tablet 324 mg Route: PO; lr4 18:36 Follow up: Response: No adverse reaction lr4 19:17 Drug: Magnesium Sulfate 2 grams Route: IVPB; Infused Over: 2 hrs; Site: right lr4 antecubital; 19:21 Drug: Nitroglycerin 0.4 mg Route: Sublingual; lr4 19:39 Follow up: Response: Pain is decreased lr4 Disposition Summary: 05/01/21 19:20 Hospitalization Ordered Hospitalization Status: Observation cp Provider: Kylee Hill cp Condition: Stable cp Problem: new cp Symptoms: have improved cp Bed/Room Type: Standard cp Location: [facility] ER HOLD(05/01/21 21:05) Room Assignment: ERHOLD-(05/01/21 21:05) Diagnosis - Angina pectoris, unspecified cp Forms: - Medication Reconciliation Form cp - SBAR form cp Addendum: 05/06/2021 21:00 Co-signature as Attending Physician, Ruddy Billy DO I was available in the ED for m s3 consultation.. Signatures: Dispatcher [employer] EDMS Carolee Reyes RN RN Maury Lowery PA PA Ruddy Billy DO DO ms3 Maria G Franco RN RN ld1 Maryann Alex RN RN lr4 Corrections: (The following items were deleted from the chart) 05/01 18:36 18:21 BASIC METABOLIC PANEL+C.LAB.BRZ ordered. EDMS EDMS 18:36 18:21 HEPATIC FUNCTION+C.LAB.BRZ ordered. EDMS EDMS 18:36 18:21 MAGNESIUM+C.LAB.BRZ ordered. EDMS EDMS 18:36 18:21 PROBNP+C.LAB.BRZ ordered. EDMS EDMS 18:36 18:21 Troponin High Sensitivity+C.LAB.BRZ ordered. EDMS EDMS 18:37 18:21 CBC+H.LAB.BRZ ordered. EDMS EDMS 18:37 18:21 PROTIME (+INR)+COAG.LAB.BRZ ordered. EDMS EDMS 21:05 19:20 Telemetry/MedSurg (observation) [facility] 21:05 19:20 cp 05/03 02:35 05/01 17:55 The patient or guardian reports chest pain that is located primarily in the cp anterior chest wall, cp
[2021-05-01] MEDS ORDERED: NITROGLYCERIN 0.4 MG/TAB SL ONE (19:22)
--- NOTE | 2021-05-01 19:27 | RAD REPORT ---
EXAM DESCRIPTION: RAD - Chest Single View - 05/01/2021 7:14 pm CLINICAL HISTORY: CHEST PAIN COMPARISON: No comparisonsChest Single View dated 11/26/2020; Chest Single View dated 10/15/2019; Ches t Single View dated 12/05/2018; Chest Single View dated 08/01/2018 FINDINGS: Lines: None. Lungs: No evidence of edema or pneumonia. Pleural: No significant pleural effusions or pneumothorax. Cardiac: Mild cardiomegaly. Bones: No acute fractures. Other: Sternotomy. IMPRESSION: No acute cardiopulmonary disease.
--- NOTE | 2021-05-01 20:21 | P.HP ---
Certification for Inpatient Patient admitted to: Observation With expected LOS: <2 Midnights Patient will require the following post-hospital care: None Practitioner: I am a practitioner with admitting privileges, knowledge of patient current condition, hospital course, and medical plan of care. Services: Services provided to patient in accordance with Admission requirements found in Title 42 Section 412.3 of the Code of Federal Regulations Patient History Date of Service: 05/01/21 Reason for admission: Chest Pain History of Present Illness: Patient is a 56-year-old male with history of CAD and MIs status post CABG surgery and multiple stents who presented to the ED with a 6-day history of chest pain. Patient states the pain feels similar to when he has been previous heart attack. He he denies any other symptoms. Patient sees Dr. Brush. After nitro in the ED. Patient states his chest pain has improved. Patient's troponin was negative and EKG showed NSR, left anterior fascicular block, nonspecific T wave abnormality. Other labs significant for sodium of 131, magnesium 1.6, proBNP 535. CT chest was negative. He was given 2 g of mag 324 mg aspirin in the ED. Patient's vitals have remained stable. ED provider wishes to admit patient for observation with cardiology consulting. Allergies No Known Drug Allergies Allergy (Verified 07/29/15 05:14) Unknown No Known Allergies Allergy (Uncoded 04/17/16 07:21) Unknown Home medications list reviewed: Yes Home Medications: Amlodipine Besylate 10 mg PO DAILY 10/15/19 Aspirin [Aspirin EC 81 MG] 81 mg PO DAILY 10/15/19 Atorvastatin Calcium [Lipitor*] 20 mg PO BREAKFAST 10/15/19 Carisoprodol [Soma] 350 mg PO TIDP PRN 10/15/19 Clopidogrel Bisulfate [Plavix*] 75 mg PO BREAKFAST 10/15/19 Hydrocodone 10/APAP 325 [[place] 10/325*] 1 tab PO QIDP PRN 10/15/19 Insulin Glargine Human [Lantus*] 20 unit SQ BEDTIME 10/15/19 Liraglutide [Victoza 2-Imer] 1.8 mg SQ DAILY 10/15/19 Metformin HCl [Metformin HCl ER] 500 mg PO BIDWM 10/15/19 Metoprolol Tartrate 100 mg PO BEDTIME 10/15/19 Amlodipine [Norvasc*] 10 mg PO BREAKFAST 11/26/20 Losartan Potassium 100 mg PO BREAKFAST 11/26/20 - Past Medical/Surgical History Diabetic: Yes -: X3 MIs -: IDDM -: chronic back pain -: cataracts -: glaucoma rt eye -: cellulitis -: staph infection with CABG -: Glaucoma -: Staph infection wound chest -: cardiac cath -: lumbar epidural injection x3 -: CABG (May 29 2014) x 4 vessels -: cardiac stents 01/06 Psychosocial/ Personal History: Patient lives at home with his . - Family History Mother -: Heart disease, Diabetes Father -: Stroke, Cancer Notes: Multiple CANCER Sister -: Cancer Notes: liver - Social History Smoking Status: Never smoker Alcohol use: No CD- Drugs: No Caffeine use: Yes Place of Residence: Home Review of Systems 10-point ROS is otherwise unremarkable Cardiovascular: Chest Pain Musculoskeletal: Back Pain Physical Examination - Physical Exam General: Alert, In no apparent distress HEENT: Atraumatic, PERRLA, EOMI, Sclerae nonicteric Neck: Supple, 2+ carotid pulse no bruit, No LAD, Without JVD or thyroid abnormality Respiratory: Clear to auscultation bilaterally, Normal air movement Cardiovascular: Regular rate/rhythm, Normal S1 S2 Gastrointestinal: Normal bowel sounds, No tenderness Musculoskeletal: No tenderness Integumentary: No rashes Neurological: Normal speech, Normal strength at 5/5 x4 extr, Normal tone, Normal affect - Studies Laboratory Data (last 24 hrs) 05/01/21 18:00: PT 10.5, INR 0.96 05/01/21 18:00: WBC 7.60, Hgb 14.9, Hct 43.9, Plt Count 218 05/01/21 18:00: Sodium 131 L, Potassium 3.6, BUN 18, Creatinine 1.23, Glucose 204 H, Magnesium 1.6 L, Total Bilirubin 0.3, AST 18, ALT 27, Alkaline Phosphatase 85 05/01/21 17:49: PT Cancelled, INR Cancelled 05/01/21 17:49: WBC Cancelled, Hgb Cancelled, Hct Cancelled, Plt Count Cancelled 05/01/21 17:49: Sodium Cancelled, Potassium Cancelled, BUN Cancelled, Creatinine Cancelled, Glucose Cancelled, Magnesium Cancelled, Total Bilirubin Cancelled, AST Cancelled, ALT Cancelled, Alkaline Phosphatase Cancelled Assessment and Plan - Problems (Diagnosis) (1) Chest pain Onset Date: 07/29/15 Current Visit: Yes Status: Acute Qualifiers: Chest pain type: unspecified Qualified Code(s): R07.9 - Chest pain, unspecified (2) Type 2 diabetes mellitus, with long-term current use of insulin Current Visit: Yes Status: Chronic Qualifiers: Diabetes mellitus complication status: without complication Qualified Code(s): E11.9 - Type 2 diabetes mellitus without complications; Z79.4 - retirement (current) use of insulin (3) History of IN (myocardial infarction) Current Visit: Yes Status: Chronic (4) Coronary artery disease Onset Date: 12/31/14 Current Visit: Yes Status: Chronic Qualifiers: Coronary Disease-Associated Artery/Lesion type: bypass graft [place] vs. transplanted heart: [place] heart Associated angina: with unstable angina Qualified Code(s): I25.700 - Atherosclerosis of coronary artery bypass graft(s), unspecified, with unstable angina pectoris (5) Hypercholesterolemia Onset Date: 12/31/14 Current Visit: No Status: Chronic (6) Hypertension Onset Date: 12/31/14 Current Visit: Yes Status: Chronic Qualifiers: Hypertension type: primary hypertension Qualified Code(s): I10 - Essential (primary) hypertension - Plan -patient reports his chest pain is similar to when he had his IN but has improved over the course of his stay. Work-up was negative. Given aspirin 324 in the ED. Initial troponin negative, will trend. Cardiology consult ordered -Echo in November 2020 showed mild tricuspid regurgitation with 57% ejection fraction. Appears his last stress test was in 2015. -Patient had a CABG in the past and takes metoprolol, aspirin, Plavix, atorvastatin. -Patient is diabetic insulin-dependent. ACHS Accu-Chek with mild sliding scale -Patient also reports chronic back pain and takes [place] -Patient sodium was low, will replete with normal saline. Magnesium was also low. Received 2 of mag in the ED. We will continue to replete as necessary. -We will monitor patient on telemetry DVT PPx: Lovenox Code: Full Discharge Plan: Home Plan to discharge in: 24 Hours - Advance Directives Does patient have a Living Will: No Does patient have a Durable POA for Healthcare: No - Code Status/Comfort Care Code Status Assessed: Yes (Full) Critical Care: No Time Spent Managing Pts Care (In Minutes): 70
[2021-05-01] MEDS ORDERED: ATORVASTATIN 40 MG TAB PO SCH (22:20)
[2021-05-01] MEDS ORDERED: ONDANSETRON 4 MG/2 ML VIAL IV PRN (22:20)
[2021-05-01] MEDS ORDERED: NA CHLORIDE 0.9% 1,000 ML IV SCH (22:20)
[2021-05-01] MEDS: INSULIN -REGULAR HUMAN 50 UNIT/0.5 ML ML SQ SCH (22:20)
[2021-05-01] MEDS ORDERED: HYDROCODONE/APAP 10/325 TAB ONE (22:27)
[2021-05-01] MEDS: HYDROCODONE/APAP 10/325 TAB PO PRN (22:29)
[2021-05-02 03:13] LABS: Absolute Lymphocytes (CBC) 1.8 K/uL (0.7-4.9); Hematocrit 40.3 % (39.6-49.0); Lymphocytes % 29.4 % (15.3-44.8); MPV 7.5 fL (7.6-11.3); RBC Red Blood Cell Count 4.48 M/uL (4.33-5.43)
[2021-05-02 03:32] LABS: Albumin 2.9 g/dL (3.4-5.0); Bilirubin Total 0.2 mg/dL (0.2-1.0); CKMB Creatine Kinase MB 1.7 ng/mL (1.0-3.6); Magnesium 2.3 mg/dL (1.8-2.4); Potassium 4.6 mmol/L (3.5-5.1); Protein, Total 7.1 g/dL (6.4-8.2)
[2021-05-02] MEDS ORDERED: INSULIN -REGULAR HUMAN 50 UNIT/0.5 ML ML ONE ×2 (03:34→10:12)
[2021-05-02] MEDS ORDERED: ATORVASTATIN 20 MG TAB ONE (03:35)
[2021-05-02 03:36] LABS: Thyroid Stimulating Hormone 4.24 uIU/mL (0.360-3.740)
[2021-05-02] MEDS ORDERED: NA CHLORIDE 0.9% 1,000 ML ONE (03:44)
[2021-05-02 06:07] VITALS: BMI 39.9
[2021-05-02] MEDS: INSULIN -REGULAR HUMAN 50 UNIT/0.5 ML ML SQ SCH (07:30)
[2021-05-02] MEDS: ENOXAPARIN 40 MG/0.4 ML SQ SCH ×2 (09:00)
[2021-05-02] MEDS ORDERED: HYDROCODONE/APAP 10/325 TAB ONE (10:14)
[2021-05-02] MEDS: HYDROCODONE/APAP 10/325 TAB PO PRN (10:14)
[2021-05-02] MEDS ORDERED: ENOXAPARIN 40 MG/0.4 ML SQ ONE (10:15)
[2021-05-02 12:08] VITALS: TEMP 98
[2021-05-02 12:12] VITALS: BP 121/76
[2021-05-02 12:46] VITALS: O2SAT 100
--- NOTE | 2021-05-02 13:11 | EKG ---
Test Date: 2021-05-01 Test Time: 17:44:28 Wind Field Manager: TING MEASUREMENT RESULTS: Intervals: Rate: 75 TX: 142 QRSD: 120 QT: 400 QTc: 446 [place]: P: 39 TX: 142 QRS: -73 T: 32 INTERPRETIVE STATEMENTS: Normal sinus rhythm Left anterior fascicular block Nonspecific T wave abnormality Abnormal ECG Compared to ECG 11/26/2020 16:59:50 T-wave abnormality now present Myocardial infarct finding no longer present Electronically Signed On 05-02-21 13:08:10 PATIENT PORTAL CONCIERGE by Eduardo Brush
--- NOTE | 2021-05-03 00:09 | CON ---
Date of Consultation: 05/02/2021 Reason For Consultation: Chest pain. History Of Present Illness: Mr. Schultz is 56, very well known to me. He has had CABG and stent, hyp ertension, diabetes, dyslipidemia, gastroesophageal reflux disease. He has ADD and anxiety. He had a very stressful situation at home, and after that he developed some sharp stabbing chest pain over t he left anterior wall without any nausea, vomiting, diaphoresis, PND, orthopnea, pedal edema, palpita tions, or syncope. He is pain-free now and he wants to go home. He is already ruled out. The tropo chuck was negative. BNP was negative. Glucose was 266, triglycerides 333. Normal echocardiogram rece ntly. He has also had a normal stress test recently in the office. Past Medical History: As stated above. Allergies: NONE. Review of Systems: Negative. Social History: Negative. Family History: Noncontributory. Medications: At home include Norvasc, aspirin, Lipitor, Plavix, insulin, metformin, Victoza, losarta n, and metoprolol 100 mg daily. Physical Examination: Vital Signs: Stable, afebrile. HEENT: Negative. Neck: Supple with no bruit. Chest: Clear. Cardiac: Revealed a regular rhythm and rate. No murmurs, gallops, or rubs. Abdomen: Benign. Extremities: Revealed no clubbing, cyanosis, or edema. Diagnostic Data: All normal, except for the glucose and triglyceride. Impression And Plan: Atypical chest pain, most likely musculoskeletal secondary to anxiety or gastro esophageal reflux disease. Mr. Schultz and I have discussed his case many times. He knows when he needs a heart catheterization based on his symptoms. He is comfortable going home today and I agree with him. I will continue his medical regimen as is. I will see him in the office in the next week or 2. His blood pressure was controlled. Diabetes is poorly controlled. Dyslipidemia is poorly controlled. He will have to watc h his carb intake. NB/MODL Voice ID: [id number] Report ID: [id number]
== END 2021-05-02 13:00 | disposition home or self-care (01) | DRG 313 ==
LOC: ER 17:22 → ERHOLD 20:13
PROVIDERS: ADMIT Hospitalist; ATTEND Hospitalist
DX: R07.89 Other chest pain (principal); I10 Essential (primary) hypertension; E11.9 Type 2 diabetes mellitus without complications; E78.5 Hyperlipidemia, unspecified; K21.9 Gastro-esophageal reflux disease without esophagitis; F98.8 Other specified behavioral and emotional disorders with onset usually occurring in childhood and adolescence; F41.9 Anxiety disorder, unspecified; I25.10 Atherosclerotic heart disease of native coronary artery without angina pectoris; I25.2 Old myocardial infarction; Z95.1 Presence of aortocoronary bypass graft; Z95.5 Presence of coronary angioplasty implant and graft; Z20.822 Contact with and (suspected) exposure to COVID-19
CPT/HCPCS: 0240U; 36415; 71045; 71275; 74175; 80048; 80053; 80061; 80076; 82550; 82553; 82947; 83735; 83880; 84439; 84443; 84484; 85025; 85610; 93005; 96374; 96375; 99285; J1650; J2405; J3475; J7030; Q9967

== ENCOUNTER 2021-10-21 11:59 | Emergency (ER) | payer SELFPAY ==
[2021-10-21] MEDS ORDERED: MORPHINE 4 MG/ML SYR ONE (12:40)
[2021-10-21 12:49] LABS: Urine Blood Negative (Negative); Urine Glucose Negative (Negative); Urine Protein Negative (Negative); Urine pH 5.5 (5.0-7.0)
[2021-10-21 13:13] LABS: Urine RBC <5 /HPF (None Seen)
--- NOTE | 2021-10-21 13:28 | EDPHYS ---
Physician Documentation [facility] Name: Jorge Schultz Jr Age: 56 yrs Sex: Male : 1965 Arrival Date: 10/21/2021 Time: 12:01 Bed 11 Private MD: Felipe Sinha ED Physician Ruddy Billy HPI: 10/21 12:45 This 56 yrs old Male presents to ER via Ambulatory with complaints of Back cp Pain. 12:45 The patient presents with pain that is chronic, with no known mechanism of injury. The cp symptoms are located in the low back. The pain does not radiate. Associated signs and symptoms: Pertinent negatives: abdominal pain, constipation, dysuria, fever, incontinence, numbness. The problem was sustained became worse after bending over yesterday. Modifying factors: the patient symptoms are aggravated by movement. Historical: - Allergies: 12:07 No Known Drug Allergies; tw2 - PMHx: 12:07 Myocardial infarction; Hypertension; High Cholesterol; Glaucoma; GERD; Diabetes - tw2 NIDDM; CAD; Anxiety; - PSHx: 12:07 CABG; tw2 - Immunization history:: Client reports receiving the 2nd dose of the Covid vaccine. - Social history:: Smoking status: Patient denies any tobacco usage or history of. ROS: 12:50 Constitutional: Negative for body aches, chills, fever, poor PO intake. cp 12:50 Eyes: Negative for injury, pain, redness, and discharge. cp 12:50 Neck: Negative for pain with movement, pain at rest, stiffness. 12:50 Cardiovascular: Negative for chest pain, palpitations. 12:50 Respiratory: Negative for cough, shortness of breath, wheezing. 12:50 Abdomen/GI: Negative for abdominal pain, vomiting, diarrhea, constipation, bowel incontinence. 12:50 Back: Positive for pain at rest, pain with movement, of the low back. 12:50 : Negative for urinary symptoms, bladder incontinence, testicular pain 12:50 Skin: Negative for cellulitis, rash. 12:50 Neuro: Negative for altered mental status, headache, saddle anesthesia. 12:50 All other systems are negative. Exam: 12:55 Head/Face: Normocephalic, atraumatic. cp 12:55 Constitutional: The patient appears in no acute distress, alert, awake, non-toxic, well developed, well nourished, uncomfortable, overweight 12:55 Eyes: Periorbital structures: appear normal, Conjunctiva: normal, no exudate, no injection, Sclera: no appreciated abnormality, Lids and lashes: appear normal, bilaterally. 12:55 ENT: External ear(s): are unremarkable, Nose: is normal, Mouth: is normal, Posterior pharynx: Airway: no evidence of obstruction, patent. 12:55 Chest/axilla: Inspection: normal. 12:55 Cardiovascular: Rate: normal, Rhythm: regular, Edema: is not appreciated, JVD: is not appreciated. 12:55 Respiratory: the patient does not display signs of respiratory distress, Respirations: normal, no use of accessory muscles, Breath sounds: are clear throughout, no decreased breath sounds, no stridor, no wheezing. 12:55 Abdomen/GI: Exam negative for discomfort, distension, guarding, Inspection: abdomen appears normal. 12:55 Back: pain, that is severe, of the lumbar area, ROM is painful, with all movement, Straight leg raises: of both lower extremities does not illicit pain. 12:55 Neuro: Orientation: to person, place \T\ time. Mentation: is normal, Motor: moves all fours, strength is normal, Sensation: full ROM lower extremities, no weakness noted with strength testing on exam. Vital Signs: 12:05 BP 155 / 96; Pulse 71; Resp 17; Temp 98.(O); Pulse Ox 100% on R/A; Weight 95.25 kg (R); tw2 Height 5 ft. 5 in. (165.10 cm); Pain 10/10; 12:05 Body Mass Index 34.95 (95.25 kg, 165.10 cm) tw2 MDM: 12:16 Patient medically screened. cp 13:27 Data reviewed: vital signs, nurses notes. cp 13:27 Differential diagnosis: ruptured disc, spinal stenosis, cauda equina. 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 Response to treatment: pain improved. 10/21 12:17 Order name: Urine Microscopic Only; Complete Time: 13:13 cp 10/21 13:14 Interpretation: Reviewed. cp 10/21 12:50 Order name: Urine Dipstick-Ancillary; Complete Time: 13:05 EDMS 10/21 13:14 Interpretation: Reviewed. cp 10/21 12:17 Order name: Urine Dipstick-Ancillary (obtain specimen); Complete Time: 12:49 cp Administered Medications: 12:30 CANCELLED (Physician Discretion): morphine 10 mg IM once cp 12:37 CANCELLED (Duplicate Order): morphine 8 mg IVP once bm7 12:37 Drug: morphine 8 mg Route: IM; Site: right gluteus; bm7 13:29 Follow up: Response: Pain is decreased; Pain is increased bm7 13:29 Not Given (Patient Eloped): Lidoderm Patch 5 % (700 mg/patch) 1 patches Topical once; bm7 leave on for 12 hours; cover most painful area; may cut into smaller pieces Disposition: 16:21 Co-signature as Attending Physician, Ruddy ZAYAS was present in the emergency ms3 department and available for consultation in the care of this patient.. Disposition Summary: 10/21/21 13:27 Discharge Ordered Location: Home cp Problem: an acute exacerbation cp Symptoms: have improved cp Condition: Stable cp Diagnosis - Low back pain cp Followup: cp - With: Private Physician - When: 2 - 3 days - Reason: Recheck today's complaints Discharge Instructions: - Discharge Summary Sheet cp - Chronic Back Pain cp - Back Exercises cp Forms: - Medication Reconciliation Form cp - Thank You Letter cp - Antibiotic Education cp - Prescription Opioid Use cp Prescriptions: - Medrol (Imer) 4 mg Oral Tablets, Dose Pack - take 1 tablet by ORAL route as directed - follow package instructions; 1 cp packet; Refills: 0, Product Selection Permitted - orphenadrine citrate 100 mg Oral Tablet Sustained Release - take 1 tablet by ORAL route 2 times per day As needed; 20 tablet; Refills: 0, cp Product Selection Permitted Signatures: Dispatcher [employer] EDDC Maury Lowery PA PA cp Wise, Tara RN RN tw2 Ruddy Billy DO DO ms3 Malika Maria RN RN bm7 Corrections: (The following items were deleted from the chart) 12:07 12:07 PMHx: ADD/ADHD; tw2 tw2 12:30 12:17 morphine 10 mg IM once ordered. cp cp 12:37 12:30 morphine 8 mg IVP once ordered. cp bm7 10/20 12:55 Constitutional: The patient appears in no acute distress, alert, awake, cp non-toxic, well developed, well nourished, uncomfortable, overweight cp 10/21 12:10/20 12:55 Head/Face: Normocephalic, atraumatic. cp cp 10/21 12:10/20 12:55 Eyes: Periorbital structures: appear normal, Conjunctiva: normal, no cp exudate, no injection, Sclera: no appreciated abnormality, Lids and lashes: appear normal, bilaterally, cp 10/21 12:10/20 12:55 ENT: External ear(s): are unremarkable, Nose: is normal, Mouth: is normal, cp Posterior pharynx: Airway: no evidence of obstruction, patent, cp 10/21 12:10/20 12:55 Chest/axilla: Inspection: normal, cp cp 10/21 12:55 Cardiovascular: Rate: normal, Rhythm: regular, Edema: is not appreciated, cp JVD: is not appreciated, cp 10/21 12:10/20 12:55 Respiratory: the patient does not display signs of respiratory distress, cp Respirations: normal, no use of accessory muscles, Breath sounds: are clear throughout, no decreased breath sounds, no stridor, no wheezing, cp 10/21 12:10/20 12:55 Abdomen/GI: Exam negative for discomfort, distension, guarding, Inspection: cp abdomen appears normal, cp 10/21 12:55 Back: pain, that is severe, of the lumbar area, ROM is painful, with all cp movement, Straight leg raises: of both lower extremities does not illicit pain, cp 10/21 12:10/20 12:55 Neuro: Orientation: to person, place \T\ time. Mentation: is normal, Motor: cp moves all fours, strength is normal, Sensation: full ROM lower extremities, no weakness noted with strength testing on exam, cp
--- NOTE | 2021-10-21 13:28 | ER ---
Nurse's Notes [facility] Name: Jorge Schultz Jr Age: 56 yrs Sex: Male : 1965 Arrival Date: 10/21/2021 Time: 12:01 Bed 11 Private MD: Felipe Sinha Diagnosis: Low back pain Presentation: 10/21 12:05 Chief complaint: Patient states: lower back pain started yesterday. i didn't do tw2 anything out of the ordinary. it just came all of a sudden. hurts constant. painful with position changes too. L4-5 bulging/herniated disc. Coronavirus screen: At this time, the client does not indicate any symptoms associated with coronavirus-19. Ebola Screen: Patient denies travel to an Ebola-affected area in the 21 days before illness onset. Initial Sepsis Screen: Does the patient meet any 2 criteria? No. Patient's initial sepsis screen is negative. Does the patient have a suspected source of infection? No. Patient's initial sepsis screen is negative. Risk Assessment: Do you want to hurt yourself or someone else? Patient reports no desire to harm self or others. Onset of symptoms was October 21, 2021. 12:05 Method Of Arrival: Ambulatory tw2 12:05 Acuity: AALIYAH 3 tw2 Triage Assessment: 12:07 General: Appears uncomfortable, Behavior is calm, cooperative, appropriate for age. tw2 Pain: Complains of pain in lumbar area, left low back and right low back. Neuro: Level of Consciousness is awake, alert, obeys commands, Oriented to person, place, time, situation. Respiratory: Airway is patent Respiratory effort is even, unlabored, Respiratory pattern is regular, symmetrical. Musculoskeletal: Circulation, motion, and sensation intact. Range of motion: intact in all extremities. Historical: - Allergies: 12:07 No Known Drug Allergies; tw2 - PMHx: 12:07 Myocardial infarction; Hypertension; High Cholesterol; Glaucoma; GERD; Diabetes - tw2 NIDDM; CAD; Anxiety; - PSHx: 12:07 CABG; tw2 - Immunization history:: Client reports receiving the 2nd dose of the Covid vaccine. - Social history:: Smoking status: Patient denies any tobacco usage or history of. Screenin:08 Abuse screen: Denies threats or abuse. Nutritional screening: No deficits noted. tw2 Tuberculosis screening: No symptoms or risk factors identified. Fall Risk None identified. Assessment: 13:29 Reassessment: went into patients room to apply lidocaine patch. Patient not in his bm7 room. re-entered patient's room multiple times. patient has eloped. Neuro: No deficits noted. Vital Signs: 12:05 BP 155 / 96; Pulse 71; Resp 17; Temp 98.(O); Pulse Ox 100% on R/A; Weight 95.25 kg (R); tw2 Height 5 ft. 5 in. (165.10 cm); Pain 10/10; 12:05 Body Mass Index 34.95 (95.25 kg, 165.10 cm) tw2 ED Course: 12:01 Patient arrived in ED. mr 12:01 Felipe Sinha MD is Private Physician. mr 12:06 Triage completed. tw2 12:07 Arm band placed on. tw2 12:12 Maury Lowery PA is PHCP. cp 12:12 Ruddy Billy DO is Attending Physician. cp 12:50 Patient has correct armband on for positive identification. Call light in reach. bm7 Assisted with urinal. 12:50 Urine collected: clean catch specimen, clear. Patient maintains SpO2 saturation greater bm7 than 95% on room air. 13:29 No provider procedures requiring assistance completed. Patient did not have IV access bm7 during this emergency room visit. Administered Medications: 12:30 CANCELLED (Physician Discretion): morphine 10 mg IM once cp 12:37 CANCELLED (Duplicate Order): morphine 8 mg IVP once bm7 12:37 Drug: morphine 8 mg Route: IM; Site: right gluteus; bm7 13:29 Follow up: Response: Pain is decreased; Pain is increased bm7 13:29 Not Given (Patient Eloped): Lidoderm Patch 5 % (700 mg/patch) 1 patches Topical once; bm7 leave on for 12 hours; cover most painful area; may cut into smaller pieces Medication: 13:29 VIS not applicable for this client. bm7 Outcome: 13:27 Discharge ordered by . cp 13:29 Eloped from patient exam room, after seeing physician Time discovered patient gone: bm7 October 21, 2021 at 13:25 13:29 Condition: good 13:29 Discharge instructions given to patient, no dc orders given due to being eloped 13:31 Patient left the ED. bm7 Signatures: Idalia Lane mr Maury Lowery PA PA cp Wise, Tara, RN RN tw2 Malika Maria RN RN bm7 Corrections: (The following items were deleted from the chart) 12:07 12:07 PMHx: ADD/ADHD; tw2 tw
[2021-10-21] MEDS ORDERED: LIDOCAINE 4% PATCH ONE (13:33)
[2021-10-21 14:57] VITALS: BP 155/96; TEMP 98; O2SAT 100
== END 2021-10-21 13:31 | disposition home or self-care (01) ==
LOC: ER 11:59
DX: M54.50 Low back pain, unspecified (principal); E11.9 Type 2 diabetes mellitus without complications; I10 Essential (primary) hypertension; Z95.1 Presence of aortocoronary bypass graft
CPT/HCPCS: 81003; 81015; J2001

== ENCOUNTER 2021-11-05 01:19 | Emergency (ER) | payer SELFPAY ==
[2021-11-05] MEDS ORDERED: ONDANSETRON 4 MG/2 ML VIAL ONE ×2 (03:40→06:44)
[2021-11-05] MEDS ORDERED: MORPHINE 4 MG/ML SYR ONE ×2 (03:40→06:44)
[2021-11-05 03:42] LABS: Hematocrit 45.8 % (39.6-49.0); Lymphocytes % 32.8 % (15.3-44.8); MCV 90.5 fL (80-100); MPV 7.3 fL (7.6-11.3); RBC Red Blood Cell Count 5.06 M/uL (4.33-5.43)
[2021-11-05 04:05] LABS: Potassium 4.2 mmol/L (3.5-5.1); Troponin High Sensitivity 10.9 pg/mL (<58.9)
--- NOTE | 2021-11-05 06:19 | RAD REPORT ---
EXAM DESCRIPTION: CT - Chest Angio - 11/05/2021 5:14 am CLINICAL HISTORY: Chest pain, nonspecific, hypertension, history of AR COMPARISON: Chest Angio dated 11/28/2016; THORAX WO CONTRAST dated 03/18/2015; THORAX WO CONTRAST date d 12/29/2014; CTANGIO CHEST FOR PE dated 11/17/2011 TECHNIQUE: Dynamically enhanced 3 mm thick images of the chest were obtained during administration o f approximately 150mL Isovue 370 IV contrast. Coronal and oblique MIP reconstruction images were gene rated and reviewed. Exam utilizes a protocol to evaluate the pulmonary arterial tree. All CT scans are performed using dose optimization technique as appropriate and may include automated exposure control or mA/KV adjustment according to patient size. FINDINGS: No pulmonary emboli are identified. The aorta as imaged shows no acute or suspicious finding. No pericardial thickening or effusion. Dens e coronary artery calcifications are present. CABG surgical changes are noted. No infiltrate or mass in the lung parenchyma. No pleural effusion or pleural thickening. No mediastinal or hilar suspicious masses. No chest wall masses or abnormal axillary lymphadenopathy. No significant change from the 2017 study. IMPRESSION: No pulmonary emboli identified. No other significant or suspicious findings.
--- NOTE | 2021-11-05 07:45 | ER ---
Nurse's Notes [facility] Name: Jorge Schultz Jr Age: 56 yrs Sex: Male : 1965 Arrival Date: 11/05/2021 Time: 01:21 Bed 16 Private MD: Diagnosis: Chest pain, unspecified;Shortness of breath;Anxiety disorder, unspecified Presentation: 11/05 01:40 Chief complaint: Patient states: chest pain began at 6 pm. Coronavirus screen: Vaccine kl status: Patient reports receiving the 2nd dose of the covid vaccine. Ebola Screen: Patient negative for fever greater than or equal to 101.5 degrees Fahrenheit, and additional compatible Ebola Virus Disease symptoms. Initial Sepsis Screen: Does the patient meet any 2 criteria? No. Patient's initial sepsis screen is negative. Does the patient have a suspected source of infection? No. Patient's initial sepsis screen is negative. Risk Assessment: Do you want to hurt yourself or someone else? Patient reports no desire to harm self or others. 01:40 Method Of Arrival: Ambulatory 01:40 Acuity: AALIYAH 3 kl 06:18 Onset of symptoms was November 04, 2021. lg3 Triage Assessment: 01:42 General: Appears. General: Behavior is calm, cooperative. Pain: Complains of pain in kl right breast Pain currently is 7 out of 10 on a pain scale. Cardiovascular: Reports chest pain, shortness of breath, Heart tones S1 Rhythm is sinus rhythm. Historical: - Allergies: 01:41 No Known Allergies; kl - PMHx: 01:41 Anxiety; CAD; Diabetes - NIDDM; GERD; Glaucoma; High Cholesterol; Hypertension; kl Myocardial infarction; - PSHx: 01:41 CABG; kl - Immunization history:: Adult Immunizations up to date. - Social history:: Smoking status: Patient denies any tobacco usage or history of. Screenin:48 Abuse screen: Denies threats or abuse. Denies injuries from another. Nutritional lg3 screening: No deficits noted. Tuberculosis screening: No symptoms or risk factors identified. Fall Risk None identified. Assessment: 02:48 General: Appears in no apparent distress. uncomfortable, Behavior is calm, cooperative. lg3 Pain: Complains of pain in chest Pain radiates to back Quality of pain is described as crushing, heavy, pressure, sharp, squeezing, Pain began gradually, 1 day ago. Noted to be grimacing, resistant to movement. Neuro: No deficits noted. Level of Consciousness is awake, alert, obeys commands, Oriented to person, place, time, situation. Cardiovascular: Reports chest pain, Heart tones S1 S2 present Capillary refill < 3 seconds Clubbing of nail beds is absent JVD is absent Patient's skin is warm and dry. Respiratory: No deficits noted. Airway is patent Trachea midline Respiratory effort is even, unlabored, Respiratory pattern is regular, symmetrical, Breath sounds are clear bilaterally. Denies shortness of breath. GI: No deficits noted. No signs and/or symptoms were reported involving the gastrointestinal system. Abdomen is round non-distended, obese, Bowel sounds present X 4 quads. Abd is soft and non tender X 4 quads. : No deficits noted. No signs and/or symptoms were reported regarding the genitourinary system. EENT: No deficits noted. No signs and/or symptoms were reported regarding the EENT system. Derm: No deficits noted. No signs and/or symptoms reported regarding the dermatologic system. Skin is intact, is healthy with good turgor, Skin is dry, Skin is normal, Skin temperature is warm. Musculoskeletal: No deficits noted. No signs and/or symptoms reported regarding the musculoskeletal system. Circulation, motion, and sensation intact. Range of motion: intact in all extremities. 04:11 Reassessment: Patient appears in no apparent distress at this time. No changes from lg3 previously documented assessment. Patient and/or family updated on plan of care and expected duration. Pain level reassessed. Patient is alert, oriented x 3, equal unlabored respirations, skin warm/dry/pink. 06:06 Reassessment: Patient appears in no apparent distress at this time. No changes from lg3 previously documented assessment. Patient and/or family updated on plan of care and expected duration. Pain level reassessed. Patient is alert, oriented x 3, equal unlabored respirations, skin warm/dry/pink. 07:39 Reassessment: No changes from previously documented assessment. Pain: Denies pain. ko1 Vital Signs: 01:40 BP 150 / 95; Pulse 78; Resp 16; Temp 98.2(TE); Pulse Ox 97% on R/A; Weight 95.25 kg; kl Height 5 ft. 5 in. (165.10 cm); Pain 7/10; 04:11 BP 136 / 92; Pulse 66; Resp 15 S; Pulse Ox 99% on R/A; lg3 06:06 BP 127 / 82; Pulse 73; Resp 16 S; Pulse Ox 100% on R/A; lg3 07:39 BP 137 / 80; Pulse 71; Resp 14; Temp 97; Pulse Ox 99% ; Pain 0/10; ko1 01:40 Body Mass Index 34.95 (95.25 kg, 165.10 cm) ED Course: 01:21 Patient arrived in ED. ja2 01:41 Triage completed. kl 01:43 EKG done, by ED staff. kl 02:10 Rohan Velasquez MD is Attending Physician. kdr 02:13 Trang Yancey, RITA is Primary Nurse. lg3 02:33 XRAY Chest (1 view) In Process Unspecified. EDMS 02:48 Missed attempt(s): 20 gauge in right antecubital area. Bleeding controlled, band aid lg3 applied, catheter tip intact. Patient maintains SpO2 saturation greater than 95% on room air. 02:48 Patient has correct armband on for positive identification. Placed in gown. Bed in low lg3 position. Call light in reach. Side rails up X 1. Client placed on continuous cardiac and pulse oximetry monitoring. NIBP monitoring applied. traffic monitor specialist on. Door closed. Noise minimized. Warm blanket given. 02:51 Missed attempt(s): 20 gauge in left antecubital area. Bleeding controlled, band aid lg3 applied, catheter tip intact. 03:22 Inserted saline lock: 20 gauge in right upper arm, using aseptic technique. Blood lg3 collected. 03:23 Arm band placed on right wrist. lg3 03:25 Basic Metabolic Panel Sent. lg3 03:26 CBC with Diff Sent. lg3 03:26 Troponin HS Sent. lg3 05:16 CT Chest Angio In Process Unspecified. EDMS 07:44 Felipe Sinha MD is Referral Physician. kdr 08:17 No provider procedures requiring assistance completed. IV discontinued, intact, ko1 bleeding controlled, No redness/swelling at site. Pressure dressing applied. Administered Medications: 03:38 Drug: morphine 4 mg Route: IVP; Infused Over: 4 mins; Site: right upper arm; lg3 06:32 Follow up: Response: No adverse reaction lg3 03:38 Drug: Zofran (Ondansetron) 4 mg Route: IVP; Site: right upper arm; lg3 06:32 Follow up: Response: No adverse reaction lg3 06:38 Drug: morphine 4 mg Route: IVP; Infused Over: 4 mins; Site: right antecubital; lg3 06:38 Drug: Zofran (Ondansetron) 4 mg Route: IVP; Site: right antecubital; lg3 Medication: 07:39 VIS not applicable for this client. ko1 Outcome: 07:45 Discharge ordered by . noel 08:17 Discharged to home ambulatory, with family. ko1 08:17 Condition: stable 08:17 Discharge instructions given to patient, family, Instructed on discharge instructions, follow up and referral plans. Demonstrated understanding of instructions, follow-up care. 08:19 Patient left the ED. ko1 Signatures: Dispatcher [employer] EDFifi Ceja RN RN kl Rittger, Kevin, MD MD kdr Gibson, Lacie, RN RN lg3 Karis Obregon Kathy, RN RN ko1 Corrections: (The following items were deleted from the chart) 03:37 03:25 PROBNP+C.LAB.BRZ drawn and sent. lg3 ED
--- NOTE | 2021-11-05 07:46 | EDPHYS ---
Physician Documentation [facility] Name: Jorge Schultz Jr Age: 56 yrs Sex: Male : 1965 Arrival Date: 11/05/2021 Time: 01:21 Bed 16 Private MD: ED Physician Rohan Velasquez HPI: 11/05 23:32 This 56 yrs old Male presents to ER via Ambulatory with complaints of Chest kdr Pain, Shortness Of Breath, Numbness Of Arm. 23:33 Patient complains of chest pain that is globally across his anterior chest and kdr radiating into both shoulders and arms. He has had similar discomfort before. He states he is under a lot of stress. He denies nausea but has been short of breath.. Onset: The symptoms/episode began/occurred suddenly, just prior to arrival, at 18:00. Severity of symptoms: At their worst the symptoms were mild in the emergency department the symptoms are unchanged. The patient has experienced similar episodes in the past, a few times. The patient has not recently seen a physician. 23:34 Patient's been seen here multiple times for evaluation of chest pain similar to what he kdr is here for today.. Historical: - Allergies: 01:41 No Known Allergies; kl - PMHx: 01:41 Anxiety; CAD; Diabetes - NIDDM; GERD; Glaucoma; High Cholesterol; Hypertension; kl Myocardial infarction; - PSHx: 01:41 CABG; kl - Immunization history:: Adult Immunizations up to date. - Social history:: Smoking status: Patient denies any tobacco usage or history of. ROS: 23:34 Constitutional: Negative for fever, chills, and weight loss, Eyes: Negative for injury, kdr pain, redness, and discharge, ENT: Negative for injury, pain, and discharge, Neck: Negative for injury, pain, and swelling, Respiratory: Negative for shortness of breath, cough, wheezing, and pleuritic chest pain, Abdomen/GI: Negative for abdominal pain, nausea, vomiting, diarrhea, and constipation, Back: Negative for injury and pain, : Negative for injury, bleeding, discharge, and swelling, MS/Extremity: Negative for injury and deformity, Skin: Negative for injury, rash, and discoloration, Neuro: Negative for headache, weakness, numbness, tingling, and seizure activity. Psych: Negative for depression, anxiety, suicide ideation, homicidal ideation, and hallucinations, Allergy/Immunology: Negative for hives, rash, and allergies, Endocrine: Negative for neck swelling, polydipsia, polyuria, polyphagia, and marked weight changes, Hematologic/Lymphatic: Negative for swollen nodes, abnormal bleeding, and unusual bruising. 23:34 Cardiovascular: Positive for chest pain, Negative for edema, orthopnea, palpitations, paroxysmal nocturnal dyspnea, acute changes. Exam: 23:34 Constitutional: This is a well developed, well nourished patient who is awake, alert, kdr and in no acute distress. Head/Face: Normocephalic, atraumatic. Eyes: Pupils equal round and reactive to light, extra-ocular motions intact. Lids and lashes normal. Conjunctiva and sclera are non-icteric and not injected. Cornea within normal limits. Periorbital areas with no swelling, redness, or edema. Neck: Trachea midline, no thyromegaly or masses palpated, and no cervical lymphadenopathy. Supple, full range of motion without nuchal rigidity, or vertebral point tenderness. No Meningismus. Chest/axilla: Normal chest wall appearance and motion. Nontender with no deformity. No lesions are appreciated. Cardiovascular: Regular rate and rhythm with a normal S1 and S2. No gallops, murmurs, or rubs. Normal PMI, no JVD. No pulse deficits. Respiratory: Lungs have equal breath sounds bilaterally, clear to auscultation and percussion. No rales, rhonchi or wheezes noted. No increased work of breathing, no retractions or nasal flaring. Abdomen/GI: Soft, non-tender, with normal bowel sounds. No distension or tympany. No guarding or rebound. No evidence of tenderness throughout. Back: No spinal tenderness. No costovertebral tenderness. Full range of motion. Skin: Warm, dry with normal turgor. Normal color with no rashes, no lesions, and no evidence of cellulitis. MS/ Extremity: Pulses equal, no cyanosis. Neurovascular intact. Full, normal range of motion. Neuro: Awake and alert, GCS 15, oriented to person, place, time, and situation. Cranial nerves II-XII grossly intact. Motor strength 5/5 in all extremities. Sensory grossly intact. Cerebellar exam normal. Normal gait. 23:34 Psych: Behavior/mood is pleasant, cooperative, anxious, Affect is calm, Oriented to person, place, time, Patient has no thoughts/intents to harm self or others. Judgement / Insight is normal. Vital Signs: 01:40 BP 150 / 95; Pulse 78; Resp 16; Temp 98.2(TE); Pulse Ox 97% on R/A; Weight 95.25 kg; kl Height 5 ft. 5 in. (165.10 cm); Pain 7/10; 04:11 BP 136 / 92; Pulse 66; Resp 15 S; Pulse Ox 99% on R/A; lg3 06:06 BP 127 / 82; Pulse 73; Resp 16 S; Pulse Ox 100% on R/A; lg3 07:39 BP 137 / 80; Pulse 71; Resp 14; Temp 97; Pulse Ox 99% ; Pain 0/10; ko1 01:40 Body Mass Index 34.95 (95.25 kg, 165.10 cm) kl MDM: 06:57 Patient medically screened. kdr 23:34 Data reviewed: vital signs, nurses notes, lab test result(s), radiologic studies. kdr Counseling: I had a detailed discussion with the patient and/or guardian regarding: the historical points, exam findings, and any diagnostic results supporting the discharge/admit diagnosis, lab results, radiology results, the need for outpatient follow up. 11/05 02:11 Order name: Basic Metabolic Panel; Complete Time: 05:19 kdr 11/05 02:11 Order name: CBC with Diff; Complete Time: 05:19 kdr 11/05 02:11 Order name: Troponin HS; Complete Time: 05:19 kdr 11/05 02:11 Order name: XRAY Chest (1 view) kdr 11/05 03:38 Order name: NT PRO-BNP; Complete Time: 05:19 EDMS 11/05 02:11 Order name: EKG; Complete Time: 02:13 kdr 11/05 02:11 Order name: Cardiac monitoring; Complete Time: 02:27 kdr 11/05 02:11 Order name: EKG - Nurse/Tech; Complete Time: 02:14 kdr 11/05 02:52 Order name: CT Chest Angio; Complete Time: 07:10 kdr 11/05 02:11 Order name: IV Saline Lock; Complete Time: 03:25 kdr 11/05 02:11 Order name: Labs collected and sent; Complete Time: 03:25 kdr 11/05 02:11 Order name: O2 Per Protocol; Complete Time: :14 kdr 11/05 02:11 Order name: O2 Sat Monitoring; Complete Time: : kdr Administered Medications: 03:38 Drug: morphine 4 mg Route: IVP; Infused Over: 4 mins; Site: right upper arm; lg3 06:32 Follow up: Response: No adverse reaction lg3 03:38 Drug: Zofran (Ondansetron) 4 mg Route: IVP; Site: right upper arm; lg3 06:32 Follow up: Response: No adverse reaction lg3 06:38 Drug: morphine 4 mg Route: IVP; Infused Over: 4 mins; Site: right antecubital; lg3 06:38 Drug: Zofran (Ondansetron) 4 mg Route: IVP; Site: right antecubital; lg3 Disposition Summary: 11/05/21 07:45 Discharge Ordered Location: Home kdr Problem: new kdr Symptoms: have improved kdr Condition: Stable kdr Diagnosis - Chest pain, unspecified kdr - Shortness of breath kdr - Anxiety disorder, unspecified kdr Followup: kdr - With: Felipe Sinha MD - When: 2 - 3 days - Reason: If symptoms return, Further diagnostic work-up, Recheck today's complaints, Continuance of care, Re-evaluation by your physician Discharge Instructions: - Shortness of Breath, Adult, [id number] kdr - Nonspecific Chest Pain, Adult, [id number] kdr - Discharge Summary Sheet ph - Managing Stress, Adult kdr Forms: - Medication Reconciliation Form kdr - Thank You Letter kdr - SBAR form ph Signatures: Dispatcher [employer] Fifi Pope RN RN kl Rittger, Kevin, MD MD kdr Trang Yancey RN RN lg3 Corrections: (The following items were deleted from the chart) 03:37 02:14 PROBNP+C.LAB.BRZ ordered. RAMBO RICKS
--- NOTE | 2021-11-05 11:51 | RAD REPORT ---
EXAM DESCRIPTION: RAD - Chest Single View - 11/05/2021 2:31 am CLINICAL HISTORY: 56 years, Male, CHEST PAIN COMPARISON: None FINDINGS: Single view of the chest was obtained portable. No prior films are available for compariso n. The cardiomediastinal silhouette demonstrate to be unremarkable. The heart is not enlarged. The th oracic aorta is unremarkable. Sternotomy wires and pericardiac clips correspond to previous CABG. The pulmonary vasculature is normal distribution. Costophrenic angles are sharp. No areas of consolida tion or masses are seen. The rest of the soft tissue and bony structures demonstrate to be unremark able. IMPRESSION: Status post CABG. No acute cardiopulmonary disease seen. Electronically signed by: Les Byrd MD 11/05/2021 2:59 AM CDT Due to temporary technical issues with the PACS/Fluency reporting system, reports are being signed by the in house radiologists without review as a courtesy to insure prompt reporting. The interpreting radiologist is fully responsible for the content of the report.
--- NOTE | 2021-11-05 17:07 | EKG ---
Test Date: 2021-11-05 Test Time: 01:40:56 Chocolatier: MAJOR MEASUREMENT RESULTS: Intervals: Rate: 73 VA: 128 QRSD: 104 QT: 388 QTc: 427 [place]: P: 27 VA: 128 QRS: -59 T: 7 INTERPRETIVE STATEMENTS: Normal sinus rhythm Left anterior fascicular block Nonspecific T wave abnormality Abnormal ECG Compared to ECG 05/01/2021 17:44:28 No significant changes Electronically Signed On 11-05-21 17:06:35 CDT by Eduardo Brush
[2021-11-05 23:03] VITALS: BP 137/80; TEMP 97; O2SAT 99
== END 2021-11-05 08:19 | disposition home or self-care (01) ==
LOC: ER 01:19
DX: R07.9 Chest pain, unspecified (principal); R06.02 Shortness of breath; F41.9 Anxiety disorder, unspecified; I10 Essential (primary) hypertension; Z95.1 Presence of aortocoronary bypass graft
CPT/HCPCS: 36415; 71045; 71275; 80048; 83880; 84484; 85025; 93005; 99285; J2405; Q9967

== ENCOUNTER 2021-12-28 19:52 | Emergency (ER) | payer SELFPAY ==
[2021-12-28 20:40] LABS: Absolute Lymphocytes (CBC) 1.8 K/uL (0.7-4.9); Hematocrit 41.6 % (39.6-49.0); Lymphocytes % 29.7 % (15.3-44.8); MCV 90.8 fL (80-100); MPV 7.1 fL (7.6-11.3); RBC Red Blood Cell Count 4.57 M/uL (4.33-5.43)
--- NOTE | 2021-12-28 21:01 | RAD REPORT ---
EXAM DESCRIPTION: RAD - Chest Single View - 12/28/2021 8:44 pm CLINICAL HISTORY: CHEST PAIN Chest pain. COMPARISON: Chest Single View dated 12/03/2021; Chest Single View dated 11/05/2021; Chest Single View dated 05/01/2021; Chest Single View dated 11/26/2020 FINDINGS: Portable technique limits examination quality. The lungs are grossly clear. The heart is normal in size. Changes of prior CABG noted. IMPRESSION: No acute intrathoracic process suspected.
[2021-12-28 21:09] LABS: Potassium 4.2 mmol/L (3.5-5.1); Troponin High Sensitivity 10.2 pg/mL (<58.9)
[2021-12-29] MEDS ORDERED: ONDANSETRON 4 MG/2 ML VIAL ONE (00:40)
[2021-12-29] MEDS ORDERED: MORPHINE 4 MG/ML SYR ONE (00:40)
--- NOTE | 2021-12-29 01:44 | ER ---
Nurse's Notes [facility] Name: Jorge Schultz Jr Age: 56 yrs Sex: Male : 1965 Arrival Date: 12/28/2021 Time: 19:53 Bed 20 Private MD: Diagnosis: Chest pain, unspecified Presentation: 12/28 20:02 Chief complaint: Sudden sharp left sided chest pain while lying in bed 2 hours ago. Hx hb of [place], CABG, stents x 2. Coronavirus screen: At this time, the client does not indicate any symptoms associated with coronavirus-19. Ebola Screen: No symptoms or risks identified at this time. Initial Sepsis Screen: Does the patient meet any 2 criteria? No. Patient's initial sepsis screen is negative. Does the patient have a suspected source of infection? No. Patient's initial sepsis screen is negative. Risk Assessment: Do you want to hurt yourself or someone else? Patient reports no desire to harm self or others. Onset of symptoms was December 28, 2021. 20:02 Method Of Arrival: Wheelchair hb 20:02 Acuity: AALIYAH 3 hb Triage Assessment: 20:05 General: Appears distressed, Behavior is agitated. Neuro: Level of Consciousness is hb awake, alert, obeys commands, Oriented to person, place, time, situation. Cardiovascular: Patient's skin is warm and dry. Respiratory: Respiratory effort is even, unlabored, Respiratory pattern is regular, symmetrical. Historical: - Allergies: 20:04 No Known Drug Allergies; hb - PMHx: 20:04 Anxiety; CAD; Diabetes - NIDDM; GERD; Glaucoma; High Cholesterol; Hypertension; hb Myocardial infarction; - PSHx: 20:04 CABG; Cardiac Stents x 2; hb - Immunization history:: Adult Immunizations unknown. - Social history:: Smoking status: unknown. Screenin:05 Abuse screen: Denies threats or abuse. Denies injuries from another. Nutritional hb screening: No deficits noted. Tuberculosis screening: No symptoms or risk factors identified. Fall Risk None identified. Assessment: 20:06 General: Appears uncomfortable, Behavior is cooperative. Pain: Complains of pain in em6 chest Pain radiates to back Pain currently is 8 out of 10 on a pain scale. Quality of pain is described as pressure, sharp, Pain began 2 hours ago. Neuro: Level of Consciousness is awake, alert, obeys commands, Oriented to person, place, time, situation, Reports headache frontal area. Cardiovascular: Heart tones present Patient's skin is warm and dry. Respiratory: Airway is patent Respiratory effort is even, unlabored, Respiratory pattern is regular, symmetrical, Breath sounds are clear bilaterally. GI: Abdomen is non-distended, Abd is soft and non tender X 4 quads. : No signs and/or symptoms were reported regarding the genitourinary system. EENT: No signs and/or symptoms were reported regarding the EENT system. Derm: No signs and/or symptoms reported regarding the dermatologic system. Musculoskeletal: Circulation, motion, and sensation intact. Range of motion: intact in all extremities. 21:05 Reassessment: No changes from previously documented assessment. Patient and/or family em6 updated on plan of care and expected duration. Pain level reassessed. Patient is alert, oriented x 3, equal unlabored respirations, skin warm/dry/pink. 23:37 Reassessment: PT seen resting in bed, eyes closed. General: Appears comfortable, kd3 Behavior is calm, cooperative. 12/29 01:29 Reassessment: Patient appears in no apparent distress at this time. No changes from kd3 previously documented assessment. Patient and/or family updated on plan of care and expected duration. Pain level reassessed. Patient is alert, oriented x 3, equal unlabored respirations, skin warm/dry/pink. Vital Signs: 12/28 20:02 BP 136 / 103; Pulse 87; Resp 19; Temp 98.3; Pulse Ox 98% on R/A; Weight 90.72 kg (M); hb Height 5 ft. 4 in. (162.56 cm); Pain 8/10; 20:45 BP 103 / 64; Pulse 67; Resp 18; Pulse Ox 98% on R/A; em6 21:30 BP 115 / 65; Pulse 72; Resp 17; Pulse Ox 98% on R/A; em6 22:42 BP 138 / 96; Pulse 82; Resp 18; Pulse Ox 97% on R/A; kd3 12/29 01:29 BP 139 / 99; Pulse 83; Resp 16; Pulse Ox 99% on R/A; kd3 01:47 BP 139 / 99; Pulse 78; Resp 19; Pulse Ox 99% on R/A; kd3 12/28 20:02 Body Mass Index 34.33 (90.72 kg, 162.56 cm) hb ED Course: 12/28 19:53 Patient arrived in ED. ja2 19:54 Rohan Velasquez MD is Attending Physician. kdr 19:57 Silke Newberry, RITA is Primary Nurse. em6 20:04 Triage completed. hb 20:04 Arm band placed on. hb 20:08 Bed in low position. Call light in reach. Side rails up X2. surveillance system monitor on. Pulse em6 ox on. NIBP on. Warm blanket given. 20:08 Patient maintains SpO2 saturation greater than 95% on room air. em6 20:25 EKG done, by ED staff, reviewed by Rohan Velasquez MD. mm9 20:26 Placed in gown. Adult w/ patient. mm9 20:32 Basic Metabolic Panel Sent. em6 20:32 CBC with Diff Sent. em6 20:32 Troponin HS Sent. em6 20:32 Inserted saline lock: 20 gauge in left antecubital area, using aseptic technique. Blood em6 collected. 20:46 XRAY Chest (1 view) In Process Unspecified. EDMS 12/29 01:48 No provider procedures requiring assistance completed. IV discontinued, intact, kd3 bleeding controlled, No redness/swelling at site. Pressure dressing applied. Administered Medications: 00:45 Drug: morphine 4 mg Route: IVP; Infused Over: 4 mins; Site: left antecubital; kd3 01:48 Follow up: Response: No adverse reaction; Pain is decreased kd3 00:45 Drug: Zofran (Ondansetron) 4 mg Route: IVP; Site: left antecubital; kd3 01:48 Follow up: Response: No adverse reaction kd3 Medication: 01:30 VIS not applicable for this client. kd3 Outcome: 01:43 Discharge ordered by . kdr 01:48 Discharged to home ambulatory. kd3 01:48 Condition: stable 01:48 Discharge instructions given to patient, Instructed on discharge instructions, follow up and referral plans. Demonstrated understanding of instructions, follow-up care. 01:52 Patient left the ED. kd3 Signatures: Dispatcher [employer] EDVA Rohan Velasquez MD MD [facility] Jadyn Ann RN RN Karis Obregon [facility] Bonita Fierro RN RN kd3 Silke Newberry, RN RN em6 Rohith, Maritza mm9
--- NOTE | 2021-12-29 01:44 | EDPHYS ---
Physician Documentation [facility] Name: Jorge Schultz Jr Age: 56 yrs Sex: Male : 1965 Arrival Date: 12/28/2021 Time: 19:53 Bed 20 Private MD: ED Physician Rohan Velasquez HPI: 12/29 07:25 This 56 yrs old Male presents to ER via Wheelchair with complaints of Chest kdr Pain. 07:25 The patient or guardian reports chest pain that is located primarily in the anterior kdr chest wall, left. Onset: suddenly, just prior to arrival. The pain does not radiate. Associated signs and symptoms: Pertinent positives: shortness of breath. The chest pain is described as aching, sharp. Duration: The patient or guardian reports a single episode, that is still ongoing, and unchanged. Severity of pain: At its worst the pain was moderate severe incapacitating just prior to arrival, in the emergency department the pain is unchanged. The patient has experienced similar episodes in the past, chronically. The patient has been recently seen by a physician: The patient has been recently seen at the [facility] Emergency Department, this week, for similar complaints labs were performed, X-rays were performed. Historical: - Allergies: 12/28 20:04 No Known Drug Allergies; hb - PMHx: 20:04 Anxiety; CAD; Diabetes - NIDDM; GERD; Glaucoma; High Cholesterol; Hypertension; hb Myocardial infarction; - PSHx: 20:04 CABG; Cardiac Stents x 2; hb - Immunization history:: Adult Immunizations unknown. - Social history:: Smoking status: unknown. ROS: 12/29 07:25 Constitutional: Negative for fever, chills, and weight loss, Eyes: Negative for injury, kdr pain, redness, and discharge, Neck: Negative for injury, pain, and swelling, Respiratory: Negative for shortness of breath, cough, wheezing, and pleuritic chest pain, Abdomen/GI: Negative for abdominal pain, nausea, vomiting, diarrhea, and constipation, Back: Negative for injury and pain, MS/Extremity: Negative for injury and deformity, Skin: Negative for injury, rash, and discoloration, Neuro: Negative for headache, weakness, numbness, tingling, and seizure activity. Psych: Negative for depression, anxiety, suicide ideation, homicidal ideation, and hallucinations, Allergy/Immunology: Negative for hives, rash, and allergies, Endocrine: Negative for neck swelling, polydipsia, polyuria, polyphagia, and marked weight changes, Hematologic/Lymphatic: Negative for swollen nodes, abnormal bleeding, and unusual bruising. Cardiovascular: Positive for chest pain, Negative for edema, orthopnea, palpitations, paroxysmal nocturnal dyspnea. Exam: 07:25 Constitutional: This is a well developed, well nourished patient who is awake, alert, kdr and in no acute distress. Head/Face: Normocephalic, atraumatic. Eyes: Pupils equal round and reactive to light, extra-ocular motions intact. Lids and lashes normal. Conjunctiva and sclera are non-icteric and not injected. Cornea within normal limits. Periorbital areas with no swelling, redness, or edema. Neck: Trachea midline, no thyromegaly or masses palpated, and no cervical lymphadenopathy. Supple, full range of motion without nuchal rigidity, or vertebral point tenderness. No Meningismus. Chest/axilla: Normal chest wall appearance and motion. Nontender with no deformity. No lesions are appreciated. Cardiovascular: Regular rate and rhythm with a normal S1 and S2. No gallops, murmurs, or rubs. Normal PMI, no JVD. No pulse deficits. Respiratory: Lungs have equal breath sounds bilaterally, clear to auscultation and percussion. No rales, rhonchi or wheezes noted. No increased work of breathing, no retractions or nasal flaring. Abdomen/GI: Soft, non-tender, with normal bowel sounds. No distension or tympany. No guarding or rebound. No evidence of tenderness throughout. Back: No spinal tenderness. No costovertebral tenderness. Full range of motion. Skin: Warm, dry with normal turgor. Normal color with no rashes, no lesions, and no evidence of cellulitis. MS/ Extremity: Pulses equal, no cyanosis. Neurovascular intact. Full, normal range of motion. Neuro: Awake and alert, GCS 15, oriented to person, place, time, and situation. Cranial nerves II-XII grossly intact. Motor strength 5/5 in all extremities. Sensory grossly intact. Cerebellar exam normal. Normal gait. Psych: Awake, alert, with orientation to person, place and time. Behavior, mood, and affect are within normal limits. Vital Signs: 12/28 20:02 BP 136 / 103; Pulse 87; Resp 19; Temp 98.3; Pulse Ox 98% on R/A; Weight 90.72 kg (M); hb Height 5 ft. 4 in. (162.56 cm); Pain 8/10; 20:45 BP 103 / 64; Pulse 67; Resp 18; Pulse Ox 98% on R/A; em6 21:30 BP 115 / 65; Pulse 72; Resp 17; Pulse Ox 98% on R/A; em6 22:42 BP 138 / 96; Pulse 82; Resp 18; Pulse Ox 97% on R/A; kd3 12/29 01:29 BP 139 / 99; Pulse 83; Resp 16; Pulse Ox 99% on R/A; kd3 01:47 BP 139 / 99; Pulse 78; Resp 19; Pulse Ox 99% on R/A; kd3 12/28 20:02 Body Mass Index 34.33 (90.72 kg, 162.56 cm) hb MDM: 01:43 Patient medically screened. kdr 07:25 Data reviewed: vital signs, nurses notes, lab test result(s), radiologic studies. kdr Counseling: I had a detailed discussion with the patient and/or guardian regarding: the historical points, exam findings, and any diagnostic results supporting the discharge/admit diagnosis, lab results, radiology results, the need for outpatient follow up. 12/28 20:21 Order name: Basic Metabolic Panel; Complete Time: 22:33 em6 12/28 20:21 Order name: CBC with Diff; Complete Time: 22:33 em6 12/28 20:21 Order name: Troponin HS; Complete Time: 22:33 em6 12/28 20:21 Order name: XRAY Chest (1 view); Complete Time: 22:33 em6 12/28 22:34 Order name: Troponin High Sensitivity: Draw three hours after initial draw; Complete kdr Time: 00:18 12/28 20:21 Order name: EKG; Complete Time: 20:21 em6 12/28 20:21 Order name: Cardiac monitoring; Complete Time: 20:31 em6 12/28 20:21 Order name: EKG - Nurse/Tech; Complete Time: 20:25 em6 12/28 20:21 Order name: IV Saline Lock; Complete Time: 20:31 em6 12/28 20:21 Order name: Labs collected and sent; Complete Time: : em6 12/28 20:21 Order name: O2 Per Protocol; Complete Time: em6 12/28 20:21 Order name: O2 Sat Monitoring; Complete Time: em6 Administered Medications: 00:45 Drug: morphine 4 mg Route: IVP; Infused Over: 4 mins; Site: left antecubital; kd3 01:48 Follow up: Response: No adverse reaction; Pain is decreased kd3 00:45 Drug: Zofran (Ondansetron) 4 mg Route: IVP; Site: left antecubital; kd3 01:48 Follow up: Response: No adverse reaction kd3 Disposition Summary: 12/29/21 01:43 Discharge Ordered Location: Home kdr Problem: an acute exacerbation kdr Symptoms: have improved kdr Condition: Stable kdr Diagnosis - Chest pain, unspecified kdr Followup: kdr - With: Private Physician - When: 2 - 3 days - Reason: If symptoms return, Further diagnostic work-up, Recheck today's complaints, Continuance of care, Re-evaluation by your physician Discharge Instructions: - Discharge Summary Sheet kdr - Nonspecific Chest Pain, Adult, [id number] kdr Forms: - Medication Reconciliation Form kdr - Thank You Letter kdr - Antibiotic Education kdr - Prescription Opioid Use kdr Signatures: Dispatcher [employer] EDMS Rohan Velasquez MD MD kdr Jadyn Ann RN Bonita Loo RN RN kd3 Silke Newberry RN RN em6
--- NOTE | 2021-12-29 12:11 | EKG ---
Test Date: 2021-12-28 Test Time: 20:29:47 Hydraulic Lift Operator: CECIL MEASUREMENT RESULTS: Intervals: Rate: 79 [place]: 152 QRSD: 102 QT: 398 QTc: 456 [employer]: P: 35 [place]: 152 QRS: -66 T: -37 INTERPRETIVE STATEMENTS: Normal sinus rhythm Left anterior fascicular block Nonspecific T wave abnormality Abnormal ECG Compared to ECG 12/03/2021 10:45:37 T-wave abnormality now present Myocardial infarct finding no longer present Electronically Signed On 12-29-21 12:10:37 BRAND DIRECTOR by Jose Maria Adair
== END 2021-12-29 01:52 | disposition home or self-care (01) ==
LOC: ER 19:52
DX: R07.89 Other chest pain (principal); I10 Essential (primary) hypertension; Z95.1 Presence of aortocoronary bypass graft; Z95.818 Presence of other cardiac implants and grafts
CPT/HCPCS: 36415; 71045; 80048; 84484; 85025; 93005; 96374; 96375; 99285; J2405

== ENCOUNTER 2022-01-18 12:56 | Inpatient (IN) | payer SELFPAY ==
[2022-01-18 13:21] LABS: Absolute Lymphocytes (CBC) 1.9 K/uL (0.7-4.9); Hematocrit 46.6 % (39.6-49.0); Lymphocytes % 32.2 % (15.3-44.8); MPV 7.5 fL (7.6-11.3); RBC Red Blood Cell Count 5.12 M/uL (4.33-5.43)
[2022-01-18 13:30] LABS: Protime INR 0.97
--- NOTE | 2022-01-18 14:00 | RAD REPORT ---
EXAM DESCRIPTION: CT - Head C Spine Mpr Wo Con - 01/18/2022 1:46 pm CLINICAL HISTORY: Syncope. Head and neck injury status post fall. Head and neck pain COMPARISON: 2009 and 2020 TECHNIQUE: Computed axial tomography of the head and cervical spine was obtained. Sagittal and coronal reconstruction was performed. All CT scans are performed using dose optimization technique as appropriate and may include automated exposure control or mA/KV adjustment according to patient size. FINDINGS: An intracranial bleed is not seen. The ventricles are normal in caliber. An extra-axial fl uid collection is not noted.Fluid within the visualized sinuses and mastoids is not seen A cervical fracture is not visualized. No dislocation is noted. IMPRESSION: No acute intracranial abnormality is seen. A cervical fracture is not visualized. If the patient continues to have symptoms to suggest intracra nial /spinal cord pathology then MRI would be recommended
[2022-01-18 14:20] LABS: ALT/SGPT 26 U/L (12-78); AST/SGOT 20 U/L (15-37); Albumin 3.9 g/dL (3.4-5.0); Alkaline Phosphatase 78 U/L (45-117); BUN Blood Urea Nitrogen 22 mg/dL (7-18); Bicarbonate 22 mmol/L (21-32); Bilirubin Total 0.2 mg/dL (0.2-1.0); Creatine Phosphokinase 228 U/L (39-308); Glomerular Filtration Rate 79 ml/min (=/>90); Glucose Level 129 mg/dL (74-106); Potassium 4.2 mmol/L (3.5-5.1); Sodium Level 129 mmol/L (136-145)
[2022-01-18 14:23] LABS: Bilirubin Direct < 0.1 mg/dL (0-0.2)
[2022-01-18 14:31] LABS: Magnesium 1.5 mg/dL (1.8-2.4)
[2022-01-18] MEDS ORDERED: ONDANSETRON 4 MG/2 ML VIAL ONE (14:37)
[2022-01-18] MEDS ORDERED: MORPHINE 4 MG/ML SYR ONE ×2 (14:37→22:13)
[2022-01-18 14:57] LABS: NT PRO-BNP 1141 pg/mL (<125)
[2022-01-18 16:03] LABS: SARS-COV-2 RT PCR NEGATIVE (NEGATIVE)
--- NOTE | 2022-01-18 16:04 | RAD REPORT ---
EXAM DESCRIPTION: Charles Single View01/18/2022 2:52 pm CLINICAL HISTORY: Chest pain COMPARISON: December 28, 2021 FINDINGS: The lungs appear clear of acute infiltrate. The heart is normal size Postsurgical changes involve the chest IMPRESSION: No acute abnormalities displayed
--- NOTE | 2022-01-18 16:27 | ER ---
Nurse's Notes [facility] Name: Jorge Schultz Jr Age: 56 yrs Sex: Male : 1965 Arrival Date: 01/18/2022 Time: 12:58 Bed 27 Private MD: Diagnosis: Chest pain, unspecified;Syncope Presentation: 01/18 13:09 Chief complaint: Spouse and/or significant other states: Pt reported not feeling well kb3 and feeling weak \T\ 1130, daughter found him on the ground next to his bed at 12:15. Pt reports he felt mild CP and dizziness and then passed out. Coronavirus screen: Vaccine status: Client denies travel out of the [place] in the last 14 days. Coronavirus screen: Vaccine status: Patient reports receiving the 2nd dose of the covid vaccine. Client denies travel out of the [place] in the last 14 days. Ebola Screen: Patient negative for fever greater than or equal to 101.5 degrees Fahrenheit, and additional compatible Ebola Virus Disease symptoms Patient denies exposure to infectious person. Patient denies travel to an Ebola-affected area in the 21 days before illness onset. Initial Sepsis Screen: Does the patient meet any 2 criteria? No. Patient's initial sepsis screen is negative. Does the patient have a suspected source of infection? No. Patient's initial sepsis screen is negative. Risk Assessment: Do you want to hurt yourself or someone else? Patient reports no desire to harm self or others. Onset of symptoms was January 18, 2022 at 11:30. 13:09 Method Of Arrival: Wheelchair kb3 13:09 Acuity: AALIYAH 2 kb3 Triage Assessment: 13:12 General: Appears in no apparent distress. Behavior is calm, cooperative. Pain: kb3 Complains of pain in anterior aspect of left upper chest and left breast Pain does not radiate. Pain currently is 0 out of 10 on a pain scale. Neuro: No deficits noted. Level of Consciousness is awake, alert, obeys commands, Drowsy. Reports dizziness. Cardiovascular: Reports chest pain, fatigue, lightheadedness. Historical: - Allergies: 13:12 No Known Allergies; kb3 - PMHx: 13:12 Anxiety; CAD; GERD; Glaucoma; High Cholesterol; Hypertension; Myocardial infarction; kb3 IDDM; - PSHx: 13:12 CABG; cardiac stents x 2; kb3 - Immunization history:: Adult Immunizations up to date, Client reports receiving the 2nd dose of the Covid vaccine, Last tetanus immunization: up to date. - Social history:: Smoking status: Patient denies any tobacco usage or history of. Screenin:21 Abuse screen: Denies threats or abuse. Nutritional screening: No deficits noted. kr3 Tuberculosis screening: No symptoms or risk factors identified. Fall Risk IV access (20 points). Total Lindsay Fall Scale indicates No Risk (0-24 pts). Assessment: 13:20 General: Appears distressed, uncomfortable, Behavior is cooperative, appropriate for kr3 age, flat. Pain: Complains of pain in chest. Neuro: Level of Consciousness is awake, alert, obeys commands. Cardiovascular: Patient's skin is warm and dry. Respiratory: Airway is patent Respiratory effort is even, unlabored, Respiratory pattern is regular, symmetrical. GI: No signs and/or symptoms were reported involving the gastrointestinal system. : No signs and/or symptoms were reported regarding the genitourinary system. EENT: No signs and/or symptoms were reported regarding the EENT system. Derm: No signs and/or symptoms reported regarding the dermatologic system. Musculoskeletal: Circulation, motion, and sensation intact. 14:20 Reassessment: Patient and/or family updated on plan of care and expected duration. Pain kr3 level reassessed. Patient is alert, oriented x 3, equal unlabored respirations, skin warm/dry/pink. Patient states symptoms have improved. 15:20 Reassessment: No changes from previously documented assessment. Patient and/or family kr3 updated on plan of care and expected duration. Pain level reassessed. Patient is alert, oriented x 3, equal unlabored respirations, skin warm/dry/pink. 16:17 Reassessment: No changes from previously documented assessment. Patient and/or family kr3 updated on plan of care and expected duration. Pain level reassessed. Patient is alert, oriented x 3, equal unlabored respirations, skin warm/dry/pink. 17:20 Reassessment: No changes from previously documented assessment. Patient and/or family kr3 updated on plan of care and expected duration. Pain level reassessed. Patient is alert, oriented x 3, equal unlabored respirations, skin warm/dry/pink. Vital Signs: 13:09 BP 146 / 95; Pulse 77; Resp 16; Pulse Ox 98% ; Weight 90.72 kg; Height 5 ft. 5 in. kb3 (165.10 cm); 15:12 BP 138 / 88 LA Supine (auto/); Pulse 65; Resp 16; Pulse Ox 99% on R/A; kr3 15:12 BP 144 / 84 LA Sitting (auto/); Pulse 66; Resp 16; Pulse Ox 97% on R/A; kr3 15:13 BP 149 / 91 LA Standing (auto/); Pulse 70; Resp 16; Pulse Ox 99% on R/A; kr3 16:17 BP 130 / 88; Pulse 65; Resp 16; Pulse Ox 97% on R/A; kr3 20:10 BP 165 / 119; Pulse 73; Resp 15; Pulse Ox 100% ; rv1 13:09 Body Mass Index 33.28 (90.72 kg, 165.10 cm) kb3 ED Course: 12:58 Patient arrived in ED. [email or web address] 13:02 [facility]C [facility]. kb 13:02 Ruddy Billy DO is Attending Physician. kb 13:12 Triage completed. kb3 13:12 Arm band placed on right wrist. Patient placed in an exam room, on a stretcher. kb3 13:15 Bed in low position. Call light in reach. Side rails up X 1. kr3 13:15 Initial lab(s) drawn, by me, sent to lab. EKG done, by ED staff, reviewed by Yuli PAYNE. Inserted saline lock: 20 gauge in right antecubital area, using aseptic technique. Blood collected. 13:48 Head C Spine Mpr Wo Con In Process Unspecified. EDMS 14:31 Amelia Turner, RN is Primary Nurse. kr3 14:53 XRAY Chest (1 view) In Process Unspecified. EDMS 16:26 Kylee Hill MD is Hospitalizing Provider. kb 01/19 19:52 No provider procedures requiring assistance completed. Patient admitted, IV remains in ld1 place. Administered Medications: 01/18 14:50 Drug: morphine 4 mg Route: IVP; Infused Over: 4 mins; Site: right antecubital; kr3 19:22 Follow up: Response: No adverse reaction; RASS: Alert and Calm (0) kr3 14:50 Drug: Zofran (Ondansetron) 4 mg Route: IVP; Site: right antecubital; kr3 19:22 Follow up: Response: No adverse reaction kr3 Medication: 01/19 19:53 VIS not applicable for this client. ld1 Outcome: 01/18 16:26 Decision to Hospitalize by Provider. kb 01/19 19:52 Admitted to Med/surg accompanied by nurse, via wheelchair, room 210, with chart, Report ld1 called to RITA Peralta Condition: stable 20:05 Patient left the ED. ld1 Signatures: Dispatcher [employer] EDMS Yuli Nix, CHUY-C GROUP EXERCISE INSTRUCTOR-Jakob Lopez RN RN [id number] Maria G Franco RN RN ld1 Amelia Turner RN RN kr3 Michelle Workman, RN RN kb3 Debra Navarrete rv1 Corrections: (The following items were deleted from the chart) 01/18 13:13 13:12 PMHx: Diabetes - NIDDM; kb3 kb3
--- NOTE | 2022-01-18 16:27 | EDPHYS ---
Physician Documentation [facility] Name: Jorge Schultz Jr Age: 56 yrs Sex: Male : 1965 Arrival Date: 01/18/2022 Time: 12:58 Bed 27 Private MD: ED Physician Ruddy Billy HPI: 01/18 16:02 This 56 yrs old Male presents to ER via Wheelchair with complaints of Low kb Blood Sugar, UNCONTROLLED DM-LAST GLUCOSE CHECK WAS 99. 16:02 The patient has experienced syncope. Onset: The symptoms/episode began/occurred just kb prior to arrival. Duration: This was a single episode. Context: the episode(s) was witnessed, by no one, occurred at home, occurred while the patient was getting up from bed, Just prior to the episode the patient experienced chest pain, fatigue. Associated injury: The patient did not suffer any apparent associated injury. Associated signs and symptoms: Pertinent positives: chest pain. Current symptoms: Currently, the patient is not experiencing any symptoms. The patient has not experienced similar symptoms in the past. The patient has not recently seen a physician. Pt reports he has not been feeling well for the past few days with fatigue, today started having chest pain. Reports he went home and laid in bed, when he stood up he had a syncopal episode. Daughter reports she walked in the room and found him on the floor. States she spoke to him on the phone at 1129 and found him at 1215.. Historical: - Allergies: 13:12 No Known Allergies; kb3 - PMHx: 13:12 Anxiety; CAD; GERD; Glaucoma; High Cholesterol; Hypertension; Myocardial infarction; kb3 IDDM; - PSHx: 13:12 CABG; cardiac stents x 2; kb3 - Immunization history:: Adult Immunizations up to date, Client reports receiving the 2nd dose of the Covid vaccine, Last tetanus immunization: up to date. - Social history:: Smoking status: Patient denies any tobacco usage or history of. ROS: 16:01 Constitutional: Negative for fever, chills, and weight loss. kb 16:01 Constitutional: Positive for fatigue. 16:01 Cardiovascular: Positive for chest pain. 16:01 Neuro: Positive for syncope. 16:01 All other systems are negative. Exam: 14:16 Constitutional: This is a well developed, well nourished patient who is awake, alert, kb and in no acute distress. Head/Face: Normocephalic, atraumatic. ENT: Moist Mucous membranes Cardiovascular: Regular rate and rhythm with a normal S1 and S2. No gallops, murmurs, or rubs. No pulse deficits. Respiratory: Respirations even and unlabored. No increased work of breathing. Talking in full sentences Abdomen/GI: Soft, non-tender. No distention Skin: Warm, dry with normal turgor. Normal color. MS/ Extremity: Pulses equal, no cyanosis. Neurovascular intact. Full, normal range of motion. Neuro: Awake and alert, GCS 15, oriented to person, place, time, and situation. Moves all extremities. Normal gait. Psych: Awake, alert, with orientation to person, place and time. Behavior, mood, and affect are within normal limits. 14:16 ECG was reviewed by the Attending Physician. Vital Signs: 13:09 BP 146 / 95; Pulse 77; Resp 16; Pulse Ox 98% ; Weight 90.72 kg; Height 5 ft. 5 in. kb3 (165.10 cm); 15:12 BP 138 / 88 LA Supine (auto/); Pulse 65; Resp 16; Pulse Ox 99% on R/A; kr3 15:12 BP 144 / 84 LA Sitting (auto/); Pulse 66; Resp 16; Pulse Ox 97% on R/A; kr3 15:13 BP 149 / 91 LA Standing (auto/); Pulse 70; Resp 16; Pulse Ox 99% on R/A; kr3 16:17 BP 130 / 88; Pulse 65; Resp 16; Pulse Ox 97% on R/A; kr3 20:10 BP 165 / 119; Pulse 73; Resp 15; Pulse Ox 100% ; rv1 13:09 Body Mass Index 33.28 (90.72 kg, 165.10 cm) kb3 MDM: 13:03 Patient medically screened. kb 16:01 Data reviewed: vital signs, nurses notes. Data interpreted: Pulse oximetry: on room air kb is 99 %. Interpretation: normal. Counseling: I had a detailed discussion with the patient and/or guardian regarding: the historical points, exam findings, and any diagnostic results supporting the discharge/admit diagnosis, lab results, radiology results, the need for further work-up and treatment in the [facility]. 16:25 Physician consultation: Kylee Hill MD was contacted at 16:26, regarding admission, kb to the telemetry unit. patient's condition, and will see patient in ED. 01/18 13:07 Order name: Basic Metabolic Panel; Complete Time: 15:00 kb 01/18 13:07 Order name: CBC with Diff; Complete Time: 13:28 kb 01/18 13:07 Order name: CPK; Complete Time: 15:00 kb 01/18 13:07 Order name: Hepatic Function; Complete Time: 15:00 kb 01/18 13:07 Order name: Magnesium; Complete Time: 15:00 kb 01/18 13:07 Order name: Protime (+inr); Complete Time: 13:31 kb 01/18 13:07 Order name: Ptt, Activated; Complete Time: 13:31 kb 01/18 13:07 Order name: Troponin High Sensitivity; Complete Time: 15:00 kb 01/18 13:17 Order name: Glucose, Ancillary Testing; Complete Time: 13:23 EDMS 01/18 14:25 Order name: NT PRO-BNP; Complete Time: 15:00 EDMS 01/18 14:56 Order name: COVID-19/FLU A+B; Complete Time: 16:04 kb 01/18 17:18 Order name: Troponin High Sensitivity; Complete Time: 13:41 EDMS 01/18 17:18 Order name: Basic Metabolic Panel EDMS 01/18 13:31 Order name: Head C Spine Mpr Wo Con; Complete Time: 14:03 EDMS 01/18 14:15 Order name: XRAY Chest (1 view); Complete Time: 16:06 kb 01/18 17:18 Order name: Echo with Doppler EDMS 01/18 17:18 Order name: Echo with Doppler EDMS 01/18 17:18 Order name: Basic Metabolic Panel; Complete Time: 13:41 EDMS 01/18 17:18 Order name: CBC with Automated Diff EDMS 01/18 17:18 Order name: CBC with Automated Diff; Complete Time: 13:41 EDMS 01/18 17:18 Order name: Lipid Profile EDMS 01/18 17:18 Order name: Lipid Profile; Complete Time: 13:41 EDMS 01/18 17:18 Order name: Troponin High Sensitivity EDMS 01/18 17:18 Order name: Troponin High Sensitivity; Complete Time: 13:41 EDMS 01/19 08:33 Order name: US; Complete Time: 13:41 EDMS 01/19 08:35 Order name: US; Complete Time: 13:41 EDMS 01/19 08:45 Order name: Glucose, Ancillary Testing; Complete Time: 13:41 EDMS 01/19 18:44 Order name: Glucose, Ancillary Testing; Complete Time: 18:47 EDMS 01/18 13:07 Order name: EKG; Complete Time: 13:08 kb 01/18 13:07 Order name: Cardiac monitoring; Complete Time: 13:13 kb 01/18 13:07 Order name: EKG - Nurse/Tech; Complete Time: 13:13 kb 01/18 13:07 Order name: IV Saline Lock; Complete Time: 13:13 kb 01/18 13:07 Order name: Labs collected and sent; Complete Time: 13:13 kb 01/18 13:07 Order name: NPO; Complete Time: 13:13 kb 01/18 13:07 Order name: O2 Per Protocol; Complete Time: 13:13 kb 01/18 13:07 Order name: O2 Sat Monitoring; Complete Time: 13:13 kb 01/18 13:07 Order name: Orthostatics; Complete Time: 15:11 kb 01/18 17:18 Order name: CONS Physician Consult EDAK 01/18 17:18 Order name: Heart Healthy EDAK 01/19 14:08 Order name: NM; Complete Time: 14:30 EDMS EC:16 Rate is 74 beats/min. Rhythm is regular. QRS Mcdonald is Normal. ND interval is normal at kb 134 msec. QRS interval is normal at 104 msec. QT interval is normal at 428 msec. Administered Medications: 14:50 Drug: morphine 4 mg Route: IVP; Infused Over: 4 mins; Site: right antecubital; kr3 19:22 Follow up: Response: No adverse reaction; RASS: Alert and Calm (0) kr3 14:50 Drug: Zofran (Ondansetron) 4 mg Route: IVP; Site: right antecubital; kr3 19:22 Follow up: Response: No adverse reaction kr3 Disposition: 17:12 Co-signature as Attending Physician, Ruddy ZAYAS was immediately available on-site ms3 in the Emergency Department for consultation in the care of the patient. Disposition Summary: 01/18/22 16:26 Hospitalization Ordered Hospitalization Status: Observation kb Provider: Kylee Hill Condition: Stable kb Problem: new kb Symptoms: are unchanged kb Bed/Room Type: Standard kb Location: Telemetry/MedSurg (observation)(01/19/22 18:06) bd Room Assignment: 216(01/19/22 18:06) bd Diagnosis - Chest pain, unspecified kb - Syncope kb Forms: - Medication Reconciliation Form kb - SBAR form kb Signatures: Dispatcher [employer] EDMS Yuli Nix, WATER MAIN INSPECTOR-C WATER MAIN INSPECTOR-Ckb Rosa Isela Cruz Cindy, RN RN cg Ruddy Billy DO DO ms3 Amelia Turner, RN RN kr3 Michelle Workman, RN RN kb3 Corrections: (The following items were deleted from the chart) 13:13 13:12 PMHx: Diabetes - NIDDM; kb3 kb3 13:31 13:08 Head Brain Wo Cont+CT.RAD.BRZ ordered. EDMS EDMS 14:59 14:15 PROBNP+C.LAB.BRZ ordered. EDMS EDMS 18:48 16:26 Telemetry/MedSurg (observation) kb cg 18:48 16:26 kb cg 01/19 18:06 01/18 18:48 [facility] ER HOLD cg bd 01/19 18:06 01/18 18:48 ERHOLD- cg bd
[2022-01-18] MEDS ORDERED: ACETAMINOPHEN 500 MG TAB PO PRN (17:12)
[2022-01-18] MEDS ORDERED: METOPROLOL TAR 25 MG TAB PO SCH (21:00)
[2022-01-18] MEDS ORDERED: METOPROLOL TAR 25 MG TAB ONE (22:14)
[2022-01-18] MEDS: MORPHINE 4 MG/ML SYR IV PRN (22:30)
[2022-01-18] MEDS ORDERED: HYDROCODONE/APAP 10/325 TAB PO PRN (22:45)
[2022-01-18 23:07] VITALS: BMI 33.3
[2022-01-19 02:45] LABS: Absolute Lymphocytes (CBC) 1.6 K/uL (0.7-4.9); Hematocrit 42.2 % (39.6-49.0); Lymphocytes % 31.9 % (15.3-44.8); MCV 90.7 fL (80-100); MPV 7.6 fL (7.6-11.3); RBC Red Blood Cell Count 4.65 M/uL (4.33-5.43)
[2022-01-19 03:17] LABS: Potassium 4.7 mmol/L (3.5-5.1)
[2022-01-19 03:21] LABS: Troponin High Sensitivity 12.2 pg/mL (<58.9)
[2022-01-19] MEDS ORDERED: HYDROCODONE/APAP 10/325 TAB ONE (05:02)
[2022-01-19] MEDS ORDERED: REGADENOSON 0.4 MG/5 ML SYR IV ONE (07:30)
[2022-01-19] MEDS: ATORVASTATIN 20 MG TAB PO SCH (08:00)
[2022-01-19] MEDS ORDERED: INFLUENZA VACCINE (for 6+ mo) 0.5 ML DOSE IMVAC ONE (08:00)
[2022-01-19] MEDS: CLOPIDOGREL 75 MG TABLET PO SCH (08:00)
[2022-01-19] MEDS: AMLODIPINE 10 MG TAB PO SCH (08:00)
[2022-01-19] MEDS ORDERED: LOSARTAN POTASSIUM 50 MG TABLET ONE (08:18)
[2022-01-19] MEDS ORDERED: AMLODIPINE 10 MG TAB ONE (08:19)
[2022-01-19] MEDS ORDERED: ASPIRIN EC 81 MG TAB PO ONE (08:19)
[2022-01-19] MEDS ORDERED: ATORVASTATIN 20 MG TAB ONE (08:19)
[2022-01-19] MEDS ORDERED: METOPROLOL TAR 50 MG TAB ONE ×2 (08:19→15:35)
[2022-01-19] MEDS ORDERED: CLOPIDOGREL 75 MG TABLET ONE (08:19)
[2022-01-19] MEDS ORDERED: ENOXAPARIN 40 MG/0.4 ML SQ ONE (08:20)
--- NOTE | 2022-01-19 08:33 | RAD REPORT ---
EXAM DESCRIPTION: - CP - 01/19/2022 12:08 am CLINICAL HISTORY: Syncope Headache, drowsiness, syncope COMPARISON: Head C Spine Mpr Wo Con dated 01/18/2022 TECHNIQUE: Real-time sonographic evaluation of both carotid systems was performed. Doppler interroga tion was performed with waveform tracing bilaterally. FINDINGS: Normal high resistance waveforms are noted in both external carotid arteries. The common c arotid arteries and internal carotid arteries show normal low resistance waveforms. Mild mixed plaque is seen in both carotid bulbs. Peak systolic and end diastolic velocity values and the ICA/CCA ratios are in the non-hemodynamically significant range. Antegrade flow seen in both vertebral arteries. IMPRESSION: Mild mixed plaque is seen in both carotid bulbs. No evidence of a hemodynamically significant stenosis.
--- NOTE | 2022-01-19 08:35 | RAD REPORT ---
EXAM DESCRIPTION: US - Lower Extremity Arterial Bilat - 01/19/2022 12:08 am CLINICAL HISTORY: PAD;claudication bilaterally COMPARISON: No comparisons TECHNIQUE: Bilateral lower extremity arterial Doppler examination was performed with waveform tracin g and peak systolic velocity measurements. FINDINGS: Triphasic and biphasic flow is seen in the lower extremity arterial vessels to the level of the infra popliteal arteries bilaterally. Right posterior tibial, dorsalis pedis artery appear monophasic. Similarly, left posterior tibial and left dorsalis pedis appear monophasic. No complete occlusion seen. IMPRESSION: Moderate peripheral vascular disease is seen infrapopliteal vessels in asymmetric fashio n. Often, this pattern is seen in diabetic patients. No complete occlusion.
[2022-01-19] MEDS: ASPIRIN EC 81 MG TAB PO SCH (08:40)
[2022-01-19] MEDS: METOPROLOL TAR 50 MG TAB PO SCH ×2 (08:41→14:00)
[2022-01-19] MEDS: LOSARTAN POTASSIUM 50 MG TABLET PO SCH (08:41)
[2022-01-19] MEDS: ENOXAPARIN 40 MG/0.4 ML SQ SCH (08:43)
[2022-01-19] MEDS ORDERED: ASPIRIN EC 81 MG TAB PO SCH (09:00)
[2022-01-19] MEDS ORDERED: MORPHINE 4 MG/ML SYR ONE ×2 (10:48→15:36)
--- NOTE | 2022-01-19 11:08 | P.HP ---
Certification for Inpatient Patient admitted to: Observation With expected LOS: <2 Midnights Patient will require the following post-hospital care: None Practitioner: I am a practitioner with admitting privileges, knowledge of patient current condition, hospital course, and medical plan of care. Services: Services provided to patient in accordance with Admission requirements found in Title 42 Section 412.3 of the Code of Federal Regulations Patient History Date of Service: 01/18/22 Reason for admission: Chest pain/syncope and collapse History of Present Illness: Patient is a 56-year-old gentleman who is well-known to me who has a history of coronary artery disease. He came to the hospital after his found him on the ground passed out. He was on the floor in the bedroom and he was not sure how long he had been there. He has a history of coronary artery disease. He is also been having chronic chest discomfort. Patient was brought into the emergency room by his . In the emergency room his work-up has been unremarkable. His troponins are negative. He will be consulted by cardiology and will get an echocardiogram and a carotid Doppler. Allergies No Known Drug Allergies Allergy (Verified 07/29/15 05:14) Unknown No Known Allergies Allergy (Uncoded 04/17/16 07:21) Unknown Home Medications: Aspirin [Aspirin EC 81 MG] 81 mg PO DAILY 10/15/19 Atorvastatin Calcium [Lipitor*] 20 mg PO BREAKFAST 10/15/19 Carisoprodol [Soma] 350 mg PO TIDP PRN 10/15/19 Clopidogrel Bisulfate [Plavix*] 75 mg PO BREAKFAST 10/15/19 Hydrocodone 10/APAP 325 [[place] 10/325*] 1 tab PO QIDP PRN 10/15/19 Insulin Glargine Human [Lantus*] 20 unit SQ BEDTIME 10/15/19 Liraglutide [Victoza 2-Imer] 1.8 mg SQ DAILY 10/15/19 Metformin HCl [Metformin HCl ER] 1,000 mg PO BID 10/15/19 Metoprolol Tartrate 100 mg PO BID* 10/15/19 Amlodipine [Norvasc*] 10 mg PO BREAKFAST 11/26/20 Losartan Potassium 100 mg PO DAILY 11/26/20 - Past Medical/Surgical History Diabetic: Yes -: X3 MIs -: IDDM -: chronic back pain -: cataracts -: glaucoma rt eye -: cellulitis -: staph infection with CABG -: Glaucoma -: Staph infection wound chest -: cardiac cath -: lumbar epidural injection x3 -: CABG (May 29 2014) x 4 vessels -: cardiac stents 01/06 Psychosocial/ Personal History: Patient lives at home with his . - Family History Mother Medical History: Heart disease, Diabetes Father Medical History: Stroke, Cancer Notes: Multiple CANCER Sister Medical History: Cancer Notes: liver - Social History Smoking Status: Former smoker Review of Systems 10-point ROS is otherwise unremarkable Physical Examination - Vital Signs Temperature: 97.9 F Blood Pressure: 145/80 Pulse: 62 Respirations: 18 Pulse Ox (%): 100 - Physical Exam General: Alert, In no apparent distress, Oriented x3 HEENT: Atraumatic, PERRLA, Mucous membr. moist/pink, EOMI, Sclerae nonicteric Neck: Supple, 2+ carotid pulse no bruit, No LAD, Without JVD or thyroid abnormality Respiratory: Clear to auscultation bilaterally, Normal air movement Cardiovascular: Regular rate/rhythm, Normal S1 S2 Gastrointestinal: Normal bowel sounds, Soft and benign, Non-distended, No tenderness Musculoskeletal: No clubbing, No swelling, No tenderness Integumentary: No rashes Neurological: Normal speech, Normal tone, Sensation intact, Cranial nerves 3-12 intact, Normal affect, Abnormal strength Lymphatics: No axilla or inguinal lymphadenopathy - Studies Laboratory Data (last 24 hrs) 01/18/22 13:14: PT 10.7, INR 0.97, APTT 31.8 01/18/22 13:14: WBC 5.80, Hgb 16.2, Hct 46.6, Plt Count 216 01/18/22 13:14: Sodium 129 L, Potassium 4.2, BUN 22 H, Creatinine 1.09, Glucose 129 H, Magnesium 1.5 L, Total Bilirubin 0.2, AST 20, ALT 26, Alkaline Phosphatase 78 Assessment & Plan - Problems (Diagnosis) (1) Syncope and collapse Current Visit: Yes Status: Acute (2) Chest pain Onset Date: 07/29/15 Current Visit: No Status: Acute Qualifiers: Chest pain type: unspecified Qualified Code(s): R07.9 - Chest pain, unspecified (3) Coronary artery disease Onset Date: 12/31/14 Current Visit: No Status: Chronic Qualifiers: Coronary Disease-Associated Artery/Lesion type: bypass graft Hoh vs. transplanted heart: douglas heart Associated angina: with unstable angina Qualified Code(s): I25.700 - Atherosclerosis of coronary artery bypass graft(s), unspecified, with unstable angina pectoris (4) Diabetes mellitus Onset Date: 05/23/14 Current Visit: No Status: Chronic Qualifiers: Diabetes mellitus type: type 2 Diabetes mellitus residential insulin use: with residential use Diabetes mellitus complication status: with hyperglycemia Qualified Code(s): E11.65 - Type 2 diabetes mellitus with hyperglycemia; Z79.4 - roasterman (current) use of insulin (5) History of [place] (myocardial infarction) Current Visit: No Status: Chronic (6) Hypercholesterolemia Onset Date: 12/31/14 Current Visit: No Status: Chronic (7) Hypertension Onset Date: 12/31/14 Current Visit: No Status: Chronic Qualifiers: Hypertension type: primary hypertension Qualified Code(s): I10 - Essential (primary) hypertension - Plan -High-sensitivity troponin q8h x 2 -Cardiology consultation -Echocardiogram and stress test per cardiology recommendation -Repeat EKG -Work-up for other etiologies of cardiac chest pain if troponins remain negative -Lipid profile -Automotive Glass Installer regarding modifying risk for cardiac disease Discharge Plan: Home Plan to discharge in: Greater than 2 days - Advance Directives Does patient have a Living Will: No Does patient have a Durable POA for Healthcare: No - Code Status/Comfort Care Code Status Assessed: Yes Code Status: Full Code Critical Care: No Time Spent Managing PTS Care (In Minutes): 45
[2022-01-19] MEDS: MORPHINE 4 MG/ML SYR IV PRN ×3 (11:09→22:12)
--- NOTE | 2022-01-19 12:49 | EKG ---
Test Date: 2022-01-18 Test Time: 17:41:27 [place]: ANYI MEASUREMENT RESULTS: Intervals: Rate: 75 AR: 136 QRSD: 108 QT: 406 QTc: 453 [place]: P: 37 AR: 136 QRS: -64 T: -23 INTERPRETIVE STATEMENTS: Normal sinus rhythm Left anterior fascicular block Nonspecific ST and T wave abnormality Abnormal ECG Compared to ECG 12/28/2021 20:29:47 ST (T wave) deviation now present T-wave abnormality no longer present Electronically Signed On 01-19-22 12:48:49 FIELD CASHIER by Jose Maria Adair
--- NOTE | 2022-01-19 12:51 | EKG ---
Test Date: 2022-01-18 Test Time: 13:10:03 Heavy Truck Technician: HB MEASUREMENT RESULTS: Intervals: Rate: 74 VT: 134 QRSD: 104 QT: 386 QTc: 428 [place]: P: 25 VT: 134 QRS: -65 T: 40 INTERPRETIVE STATEMENTS: Normal sinus rhythm Left anterior fascicular block Nonspecific T wave abnormality Abnormal ECG Compared to ECG 12/28/2021 20:29:47 No significant changes Electronically Signed On 01-19-22 12:49:09 CAN FILLER by Jose Maria Adair
[2022-01-19] MEDS ORDERED: carisoprodoL 350 MG TAB PO ONE (12:53)
[2022-01-19] MEDS: carisoprodoL 350 MG TAB PO PRN (12:56)
--- NOTE | 2022-01-19 14:08 | RAD REPORT ---
EXAM DESCRIPTION: NM - Rest Stress Cardiac Imaging - 01/19/2022 2:02 pm CLINICAL HISTORY: Unstable Angina Chest pain. COMPARISON: REST STRESS CARDIAC dated 03/18/2015 TECHNIQUE: The patient was administered approximately 10mCi of Tc 99m Sestamibi prior to resting SPE CT imaging of the heart. The patient was then administered approximately 30 mCi of Tc 99m Sestamibi f ollowing exercise or pharmacologic stress. Multiplanar SPECT images were reviewed. FINDINGS: There is a large area of stress-induced ischemia involving the lateral wall extending from base to apex. No fixed defect seen. The end diastolic volume is 109 ml, the end systolic volume is 61 ml, and the ejection fraction is 44 %. IMPRESSION: There is a large area of stress-induced ischemia seen involving the lateral wall from ba se to apex.
--- NOTE | 2022-01-19 19:50 | PN ---
Date of Progress Note: 01/19/2022 Subjective: Seen by bedside. Continues to have on and off pain. Review of Systems: Possible chest pain and mild shortness of breath on exertion. No nausea, vomiting, diarrhea. No abd ominal pain, nausea, or urinary urgency. All other systems reviewed are negative. Physical Examination: Vital Signs: Reviewed. Head and Neck: Pupils are equal, reactive to light. Intact eye movements. No JVD. No cervical lym phadenopathy. Neck is supple. Thyroid is not enlarged. Lungs: Clear to auscultation bilaterally. No rhonchi, wheezing, crackles. No accessory muscle use. Heart: Irregularly irregular. No extra sounds. Abdomen: Soft, nontender. Bowel sounds positive. No organomegaly. No masses or hernia. No rigidi ty or rebound. Extremities: No clubbing, cyanosis. Intact pulses. Skin: No rash. Neurologic: Alert, awake. No acute focal deficits appreciated. Investigation: Labs were reviewed. Assessment And Recommendations: 1.Chest pain. Stress test is abnormal with large area of lateral ischemia. Keep n.p.o. past midnig ht. Coronary angiogram tomorrow. Continue baby aspirin. 2.Hypertension. Blood pressure is controlled with the current treatment. 3.Dyslipidemia. Continue statin. SR/MODL Voice ID: [id number] Report ID: [id number]
--- NOTE | 2022-01-19 19:57 | CON ---
Date of Consultation: 01/19/2022 Reason For Consultation: Chest pain. History Of Present Illness: This 56-year-old male with known history of coronary artery disease, sta tus post cardiac bypass surgery presented to the hospital with chest pain, left sided. He has been h aving them on and off and the discomfort was significant and then he said that he felt dizzy with it and he passed out so presented to the emergency room. First set of cardiac enzymes were negative. Past Medical History: Coronary artery disease, dyslipidemia, diabetes, and hypertension. Medications: Refer to reconciliation sheet for detailed list. Allergies: NO KNOWN DRUG ALLERGIES. Family History: No premature coronary artery disease or cancer. Social History: He is an ex-smoker. Does not drink. Review of Systems: All systems reviewed and they are negative except for what is mentioned in HPI. Physical Examination: Vital Signs: Reviewed. Head And Neck: Pupils are equal and reactive to light. Intact eye movements. No JVD. No cervical lymphadenopathy. Neck is supple. Thyroid is not enlarged. Lungs: Clear to auscultation bilaterally. No rhonchi, wheezing, or crackles. No accessory muscle u se. Heart: Irregularly irregular. No extra sounds. Abdomen: Soft, nontender. Bowel sounds positive. No organomegaly. No masses or hernia. No rigidi ty or rebound. Extremities: No edema, clubbing, or cyanosis. Intact pulses. Skin: No rash. Neurologic: Alert, awake, and oriented x3. No acute focal deficits appreciated. Lymph Nodes: No cervical or axillary lymphadenopathy. Investigations: Labs reviewed. Assessment And Recommendations: Chest pain. No acute EKG changes. First set of cardiac enzymes neg ative. Plan for Lexiscan nuclear stress test and echocardiogram tomorrow and further recommendations accordingly. Start on baby aspirin and trend troponins. SR/MODL Voice ID: [id number] Report ID: [id number]
[2022-01-20] MEDS: carisoprodoL 350 MG TAB PO PRN ×2 (00:30→20:22)
[2022-01-20] MEDS: MORPHINE 4 MG/ML SYR IV PRN ×2 (05:08→18:16)
--- NOTE | 2022-01-20 06:52 | ECHO ---
HEIGHT: 5 ft 5 in WEIGHT: 200 lb 0 oz DATE OF STUDY: 01/19/[address]: Kylee Hill MD 2-DIMENSIONAL: YES M.MODE: YES DOPPLER: YES COLOR FLOW: YES TDS: YES PORTABLE: YES DEFINITY: BUBBLE STUDY: DIAGNOSIS: CHEST PAIN CARDIAC HISTORY: CATHERIZATION: YES SURGERY: YES PROSTHETIC VALVE: PACEMAKER: MEASUREMENTS (cm) DIASTOLIC (NORMALS) SYSTOLIC (NORMALS) IVSd 1.1 (0.6-1.2) LA Diam 3.7 (1.9-4.0) LVEF 50% LVIDd 4.0 (3.5-5.7) LVIDs 2.9 (2.0-3.5) %FS 28% LVPWd 1.1 (0.6-1.2) Ao Diam 2.6 (2.0-3.7) 2 DIMENSIONAL ASSESSMENT: RIGHT ATRIUM: NORMAL LEFT ATRIUM: NORMAL RIGHT VENTRICLE: NORMAL LEFT VENTRICLE: NORMAL TRICUSPID VALVE: MILD TRICUSPID REGURGITATION MITRAL VALVE: MILD MITRAL REGURGITATION PULMONIC VALVE: NORMAL AORTIC VALVE: NORMAL PERICARDIAL EFFUSION: NONE AORTIC ROOT: NORMAL LEFT VENTRICULAR WALL MOTION: MILD GLOBAL HYPOKINESIS DOPPLER/COLOR FLOW: SEE BELOW COMMENTS: 1. LOW NORMAL LEFT VENTRICULAR EJECTION FRACTION 50% 2. MILD GLOBAL HYPOKINESIS 3. MILD MITRAL REGURGITATION 4. MILD TRICUSPID REGURGITATION TECHNOLOGIST: CAMMY SANDY
--- NOTE | 2022-01-20 06:57 | TREADPHA ---
DX: UNSTABLE ANGINA Date of Study: 01/19/2022 Ht: 5' 5 " Wt: 200 lb 0 oz Consulting Physician: IRAIS MEDICATIONS: PLAVIX, METROPOLOL, NORVASC, AMILODIPINE HISTORY: CORONARY ARTERY BYPASS GRAFT, STENT TIMES TWO (2014), HYPERTENSION, DIABETES MELLITUS PHYSICIAL EXAMINATION: RESTING B.P.: 129/53 RESTING H.R.: 67 RESTING EKG: SINUS WITH ANTERIOR Q WAVES AND DIFFUSE T WAVE DEPRESSION PROTOCOL: PHARMACOLOGIC EXERCISE TIME: 3:30 B.P. AT [place] STRESS: 107/62 IMPRESSION: LEXISCAN STRESS PERFORMED. CARDIOLITE INJECTED PER PROTOCOL. NO SUPRAVENTRICULAR TACHYCARDIA, NO VENTRICULAR TACHYCARDIA, NO CHEST PAIN NOTED. PREMATURE VENTRICULAR COMPLEXES NOTED. POSTURE HEADACHE PRIOR TO PROCEDURE, COMPLAINTS OF SHORTNESS OF BREATH THAT SUBSIDED POST PROCEDURE. SEE NUCLEAR MEDICINE REPORT. NO ELECTROCARDIOGRAM CHANGES WITH LEXISCAN.
[2022-01-20] MEDS: ENOXAPARIN 40 MG/0.4 ML SQ SCH (07:00)
--- NOTE | 2022-01-20 07:24 | P.PN ---
Subjective Date of Service: 01/19/22 Stress test came back positive. Large reversible defect. Cardiac catheterization this morning. Review of Systems 10-point ROS is otherwise unremarkable Physical Examination - Vital Signs Temperature: 97.6 F Blood Pressure: 138/77 Pulse: 86 Respirations: 16 Pulse Ox (%): 97 - Physical Exam General: Alert, In no apparent distress, Oriented x3 HEENT: Atraumatic, PERRLA, EOMI Neck: Supple, JVD not distended Respiratory: Clear to auscultation bilaterally, Normal air movement Cardiovascular: Regular rate/rhythm, Normal S1 S2 Gastrointestinal: Normal bowel sounds, No tenderness Musculoskeletal: No tenderness Integumentary: No rashes Neurological: Normal speech, Normal tone, Normal affect Lymphatics: No axilla or inguinal lymphadenopathy - Studies Medications List Reviewed: Yes Assessment & Plan - Problems (Diagnosis) (1) Syncope and collapse Current Visit: Yes Status: Acute (2) Chest pain Onset Date: 07/29/15 Current Visit: No Status: Acute Qualifiers: Chest pain type: unspecified Qualified Code(s): R07.9 - Chest pain, unspecified (3) Coronary artery disease Onset Date: 12/31/14 Current Visit: No Status: Chronic Qualifiers: Coronary Disease-Associated Artery/Lesion type: bypass graft [place] vs. transplanted heart: [place] heart Associated angina: with unstable angina Qualified Code(s): I25.700 - Atherosclerosis of coronary artery bypass graft(s), unspecified, with unstable angina pectoris (4) Diabetes mellitus Onset Date: 05/23/14 Current Visit: No Status: Chronic Qualifiers: Diabetes mellitus type: type 2 Diabetes mellitus group home insulin use: with group home use Diabetes mellitus complication status: with hyperglycemia Qualified Code(s): E11.65 - Type 2 diabetes mellitus with hyperglycemia; Z79.4 - jail (current) use of insulin (5) History of [place] (myocardial infarction) Current Visit: No Status: Chronic (6) Hypercholesterolemia Onset Date: 12/31/14 Current Visit: No Status: Chronic (7) Hypertension Onset Date: 12/31/14 Current Visit: No Status: Chronic Qualifiers: Hypertension type: primary hypertension Qualified Code(s): I10 - Essential (primary) hypertension (8) Unstable angina Current Visit: Yes Status: Acute - Plan -High-sensitivity troponin q8h x 2 were negative; however stress test with large reversible ischemia; left heart catheterization in the morning. -Cardiology consultation appreciated -Echocardiogram reviewed -Lipid profile ok -Cable Lacer regarding modifying risk for cardiac disease - Advance Directives Does patient have a Living Will: No Does patient have a Durable POA for Healthcare: No - Code Status/Comfort Care Code Status: Full Code
[2022-01-20] MEDS: LOSARTAN POTASSIUM 50 MG TABLET PO SCH (09:31)
[2022-01-20] MEDS: ALPRAZOLAM 0.25 MG TABLET PO PRN ×2 (09:31→20:22)
[2022-01-20] MEDS: ASPIRIN EC 81 MG TAB PO SCH (09:31)
[2022-01-20] MEDS: AMLODIPINE 10 MG TAB PO SCH (09:31)
[2022-01-20] MEDS: CLOPIDOGREL 75 MG TABLET PO SCH (09:31)
[2022-01-20] MEDS: ATORVASTATIN 20 MG TAB PO SCH (09:31)
[2022-01-20] MEDS: METOPROLOL TAR 50 MG TAB PO SCH ×2 (09:32→13:50)
[2022-01-20] MEDS ORDERED: INFLUENZA VACCINE (for 6+ mo) 0.5 ML DOSE IMVAC ONE (10:00)
[2022-01-20] MEDS ORDERED: NA CHLORIDE 0.9% 500 ML ONE (11:35)
[2022-01-20] MEDS ORDERED: FENTANYL CITR 100 MCG/2 ML ONE (12:04)
[2022-01-20] MEDS ORDERED: LIDOCAINE 1% 20 ML MDV ONE (12:04)
[2022-01-20] MEDS ORDERED: HEPA 1000U/500MLS 2,000 UNIT/1,000 ML BAG IV ONE (12:04)
[2022-01-20] MEDS ORDERED: MIDAZOLAM HCL 2 MG/2 ML INJ ONE (12:05)
[2022-01-20] MEDS ORDERED: ATROPINE SULF 1 MG/10 ML SYR IV ONE (12:05)
[2022-01-20] MEDS ORDERED: VERAPAMIL HCL 10 MG/4 ML VIAL IV ONE (12:05)
[2022-01-20] MEDS ORDERED: NITROGLYCERIN/D5W 25 MG/250 ML BTL IV ONE (12:05)
[2022-01-20] MEDS ORDERED: HEPARIN 10,000 UNIT/10 ML VIAL IV ONE (12:05)
[2022-01-20] MEDS ORDERED: HEPARIN 5000 UNIT/ML 1 ML VIAL ONE (12:05)
[2022-01-20] MEDS ORDERED: HEPA 1000U/500MLS 1,000 UNIT/500 ML BAG IV ONE (12:41)
[2022-01-20] MEDS ORDERED: REGADENOSON 0.4 MG/5 ML SYR IV ONE (13:07)
[2022-01-20] MEDS ORDERED: CLOPIDOGREL 75 MG TABLET ONE (13:52)
[2022-01-20 15:56] VITALS: O2SAT 98
--- NOTE | 2022-01-20 16:09 | OP ---
Date of Procedure: 01/20/2022 Surgeon: ARIANNE BRAXTON Procedures Performed: 1.Selective coronary angiogram with bypass graft study. 2.PCI of severe OM1 stenosis likely the culprit of his symptoms. I used a 2.25 mm x 38 mm Synergy d rug-eluting stent. 3.PCI of mid left circumflex severe stenosis. I used 2.75 x 8 mm Synergy drug-eluting stent. Access: Right radial artery 6-Chadian closed with TR band. Complications: None. Indication: Unstable angina with abnormal stress test. Anesthesia: Total sedation time was 75 minutes, used fentanyl and Versed. Description Of Procedure: After risks, benefits, and alternatives were explained, the patient agreed to the procedure and signed informed consent. The patient was brought into the cardiac ablation lab oratory, prepped and draped in the usual sterile fashion. Then, I accessed right radial artery using pediatric micropuncture kit, placed 6-Chadian Slender sheath and took 5-Chadian [place] 4.0 catheter int o the aortic root, engaged left main and right coronary artery and the SVG graft to RCA and then move d to the intervention details. Intervention Details: We gave systemic heparin to assure ACT level above 250. The patient is alread y on Plavix and aspirin, took one today. Then, I took an EBU3.5 guide 6-Chadian into the aortic root over a J-wire, engaged left main, took a short Run-Through wire into the left circumflex and OM, and the lesion was pre-dilated nicely. I then placed a 2.25 x 38 mm Synergy drug-eluting stent. The pat ient expanded very well with excellent results and then Run-Through was removed and placed in the cir c and the mid circ significant stenosis was pre-dilated and then placed 2.75 x 8 mm Synergy drug-elut ing stent. Excellent results at the end. Then, I removed the wire and the guide and sheath, placed a band with good hemostasis. Findings: 1.Left main is very large and normal, but short. 2.LAD is moderate-size vessel. There was a stent from proximal to mid that is patent with mild ISR 10% to 20% throughout. Diagonal branch is totally occluded from the last angiogram that was done in 2018. Then, mid to distal LAD becomes a very small about like 1.5 mm vessel with diffuse disease abo ut 40% to 50%, not amenable to intervention. Septal branches have diffuse 40% to 50% stenosis almost all of them. 3.Left circumflex; very large and dominant. OM1 branch 3 tandem lesions that are 99%. Vessel dista lly is small because it is under filled, status post successful PCI as above with excellent results a t the end. Then, the mid circ has an 80% stenosis just focal. I used 2.75 x 8 mm Synergy drug-eluti ng stent to high pressure to a size of 3 mm with excellent results. Then, distally it becomes small a nd diffuse vessel. 4.RCA is totally occluded ostially. 5.Patent SVG graft to the RCA, unchanged from before. Conclusion: 1.Severe [place] coronary artery disease with patent LAD stent. 2.Severe left circumflex and OM1 stenosis, likely the culprit for the symptoms and stress test abnor mality, status post successful PCI as above to both arteries. 3.Occluded RCA proximally with patent SVG graft to the RCA. Plan: Aspirin, Plavix, high-dose statin, and from Cardiology standpoint, the patient can be released to follow up as an outpatient in 2 weeks. SR/CHAYL Voice ID: [id number] Report ID: [id number]
[2022-01-20] MEDS ORDERED: NA CHLORIDE 0.9% 1,000 ML IV SCH (18:00)
[2022-01-20] MEDS ORDERED: NITROGLYCERIN 0.4 MG/TAB SL PRN (18:00)
[2022-01-20] MEDS ORDERED: ACETAMINOPHEN 325 MG TABLET PO PRN (18:00)
[2022-01-21] MEDS: MORPHINE 4 MG/ML SYR IV PRN ×2 (04:54→09:04)
[2022-01-21 08:52] VITALS: BP 131/82; TEMP 96.9
[2022-01-21] MEDS: ENOXAPARIN 40 MG/0.4 ML SQ SCH (09:00)
[2022-01-21] MEDS: LOSARTAN POTASSIUM 50 MG TABLET PO SCH (09:03)
[2022-01-21] MEDS: ASPIRIN EC 81 MG TAB PO SCH (09:03)
[2022-01-21] MEDS: ATORVASTATIN 20 MG TAB PO SCH (09:03)
[2022-01-21] MEDS: CLOPIDOGREL 75 MG TABLET PO SCH (09:03)
[2022-01-21] MEDS: METOPROLOL TAR 50 MG TAB PO SCH (09:03)
[2022-01-21] MEDS: AMLODIPINE 10 MG TAB PO SCH (09:04)
--- NOTE | 2022-01-21 10:30 | P.PN ---
Date of Service: 01/20/22 Subjective Patient scheduled for cardiac catheterization today. Review of Systems 10-point ROS is otherwise unremarkable Physical Examination - Vital Signs Reviewed - Physical Exam General: Alert, In no apparent distress, Oriented x3 Respiratory: Clear to auscultation bilaterally, Normal air movement Cardiovascular: Regular rate/rhythm, Normal S1 S2 Gastrointestinal: Normal bowel sounds, No tenderness Neurological: Normal speech, Normal tone, Normal affect Assessment & Plan - Problems (Diagnosis) (1) Syncope and collapse Current Visit: Yes Status: Acute (2) Chest pain Onset Date: 07/29/15 Current Visit: No Status: Acute Qualifiers: Chest pain type: unspecified Qualified Code(s): R07.9 - Chest pain, unspecified (3) Coronary artery disease Onset Date: 12/31/14 Current Visit: No Status: Chronic Qualifiers: Coronary Disease-Associated Artery/Lesion type: bypass graft [place] vs. transplanted heart: [place] heart Associated angina: with unstable angina Qualified Code(s): I25.700 - Atherosclerosis of coronary artery bypass graft(s), unspecified, with unstable angina pectoris (4) Diabetes mellitus Onset Date: 05/23/14 Current Visit: No Status: Chronic Qualifiers: Diabetes mellitus type: type 2 Diabetes mellitus moth exterminator insulin use: with moth exterminator use Diabetes mellitus complication status: with hyperglycemia Qualified Code(s): E11.65 - Type 2 diabetes mellitus with hyperglycemia; Z79.4 - long term (current) use of insulin (5) History of [place] (myocardial infarction) Current Visit: No Status: Chronic (6) Hypercholesterolemia Onset Date: 12/31/14 Current Visit: No Status: Chronic (7) Hypertension Onset Date: 12/31/14 Current Visit: No Status: Chronic Qualifiers: Hypertension type: primary hypertension Qualified Code(s): I10 - Essential (primary) hypertension (8) Unstable angina Current Visit: Yes Status: Acute - Plan -Scheduled for heart catheterization today. Continue with treatment plan as needed. Continue with antiplatelet therapy and statin therapy. -left heart catheterization in the morning. -Cardiology consultation appreciated -Echocardiogram reviewed -Lipid profile ok -Neck Band Setter regarding modifying risk for cardiac disease
--- NOTE | 2022-01-21 10:36 | P.DS ---
Discharge Date: 01/21/22 Disposition: ROUTINE DISCHARGE Discharge Condition: GOOD Reason for Admission: Chest pain/syncope and collapse Consultations: Cardiology - Problems (1) Syncope and collapse Status: Acute (2) Chest pain Onset Date: 07/29/15 Status: Acute Qualifiers: Chest pain type: unspecified Qualified Code(s): R07.9 - Chest pain, unspecified (3) Coronary artery disease Onset Date: 12/31/14 Status: Chronic Qualifiers: Coronary Disease-Associated Artery/Lesion type: bypass graft [place] vs. transplanted heart: [place] heart Associated angina: with unstable angina Qualified Code(s): I25.700 - Atherosclerosis of coronary artery bypass graft(s), unspecified, with unstable angina pectoris (4) Diabetes mellitus Onset Date: 05/23/14 Status: Chronic Qualifiers: Diabetes mellitus type: type 2 Diabetes mellitus watermelon inspector insulin use: with watermelon inspector use Diabetes mellitus complication status: with hyperglycemia Qualified Code(s): E11.65 - Type 2 diabetes mellitus with hyperglycemia; Z79.4 - manager intermediate (current) use of insulin (5) History of [place] (myocardial infarction) Status: Chronic (6) Hypercholesterolemia Onset Date: 12/31/14 Status: Chronic (7) Hypertension Onset Date: 12/31/14 Status: Chronic Qualifiers: Hypertension type: primary hypertension Qualified Code(s): I10 - Essential (primary) hypertension (8) Unstable angina Status: Acute Brief History of Present Illness: Patient is a 56-year-old gentleman who is well-known to me who has a history of coronary artery disease. He came to the hospital after his found him on the ground passed out. He was on the floor in the bedroom and he was not sure how long he had been there. He has a history of coronary artery disease. He is also been having chronic chest discomfort. Patient was brought into the emergency room by his . In the emergency room his work-up has been unremarkable. His troponins are negative. He will be consulted by cardiology and will get an echocardiogram and a carotid Doppler. Hospital Course: Pt was scheduled for cardiac catheterization. Patient had stent placed x2. Patient cardiac catheterization report: 1. Severe [place] coronary artery disease with patent LAD stent. 2. Severe left circumflex and OM1 stenosis-status post successful PCI to both arteries. 3. Occluded RCA proximally with patent SVG graft to the RCA. Patient will continue with antiplatelet therapy. And patient will have outpatient follow-up with cardiology in 1 to 2 weeks. Vital Signs/Physical Exam: Temp Pulse Resp BP Pulse Ox 96.9 F 78 18 131/82 99 01/21/22 08:00 01/21/22 08:00 01/21/22 08:00 01/21/22 08:00 01/21/22 08:00 General: Alert, In no apparent distress, Oriented x3 Laboratory Data at Discharge: WBC 5.10 K/uL (4.3-10.9) 01/19/22 02:27 Hgb 14.6 g/dL (13.6-17.9) D 01/19/22 02:27 Hct 42.2 % (39.6-49.0) 01/19/22 02:27 Plt Count 199 K/uL (152-406) 01/19/22 02:27 PT 10.7 SECONDS (9.5-12.5) 01/18/22 13:14 INR 0.97 01/18/22 13:14 APTT 31.8 SECONDS (24.3-36.9) 01/18/22 13:14 Sodium 133 mmol/L (136-145) L D 01/19/22 02:27 Potassium 4.7 mmol/L (3.5-5.1) 01/19/22 02:27 BUN 18 mg/dL (7-18) 01/19/22 02:27 Creatinine 1.11 mg/dL (0.55-1.3) 01/19/22 02:27 Glucose 278 mg/dL (74-106) H 01/19/22 02:27 Magnesium 1.5 mg/dL (1.8-2.4) L 01/18/22 13:14 Total Bilirubin 0.2 mg/dL (0.2-1.0) 01/18/22 13:14 AST 20 U/L (15-37) 01/18/22 13:14 ALT 26 U/L (12-78) 01/18/22 13:14 Alkaline Phosphatase 78 U/L (45-117) 01/18/22 13:14 Triglycerides 306 mg/dL (<150) H 01/19/22 02:27 Cholesterol 166 mg/dL (<200) 01/19/22 02:27 HDL Cholesterol 34 mg/dL (40-60) L 01/19/22 02:27 Cholesterol/HDL Ratio 4.88 01/19/22 02:27 Home Medications: Aspirin [Aspirin EC 81 MG] 81 mg PO DAILY 10/15/19 Atorvastatin Calcium [Lipitor*] 20 mg PO BREAKFAST 10/15/19 Carisoprodol [Soma] 350 mg PO TIDP PRN 10/15/19 Clopidogrel Bisulfate [Plavix*] 75 mg PO BREAKFAST 10/15/19 Hydrocodone 10/APAP 325 [[place] 10/325*] 1 tab PO QIDP PRN 10/15/19 Insulin Glargine Human [Lantus*] 20 unit SQ BEDTIME 10/15/19 Liraglutide [Victoza 2-Imer] 1.8 mg SQ DAILY 10/15/19 Metformin HCl [Metformin HCl ER] 1,000 mg PO BID 10/15/19 Metoprolol Tartrate 100 mg PO BID* 10/15/19 Amlodipine [Norvasc*] 10 mg PO BREAKFAST 11/26/20 Losartan Potassium 100 mg PO DAILY 11/26/20 Physician Discharge Instructions: OK TO DC IV AND DC HOME FOLLOW-UP WITH PRIMARY CARE PROVIDER IN 1-2 WEEKS FOLLOW-UP WITH CARDIOLOGY IN 1-2 WEEKS RETURN TO THE ER IF symptoms worsen CALL DR. ARROYO AT [phone] IF ANY QUESTIONS REGARDING HOSPITAL STAY. PLEASE CALL THE FLOOR AT [phone] IF ANY MEDICATION OR NURSING QUESTIONS. Diet: AHA Activity: Fall precautions Followup: Felipe Sinha MD [Primary Care Provider] - Time spent managing pt's care (in minutes): 35
== END 2022-01-21 10:14 | disposition home or self-care (01) | DRG 247 ==
LOC: ER 12:56 → OBSVTOIN 17:12 → ERHOLD 17:12 → 2ND 01-19 19:39
PROVIDERS: ADMIT Hospitalist; ATTEND Hospitalist
PROC: 027135Z Dilation of Coronary Artery, Two Arteries with Two Drug-eluting Intraluminal Devices, Percutaneous Approach (ICD-10-PCS; principal; 2022-01-18)
PROC: 4A023N7 Measurement of Cardiac Sampling and Pressure, Left Heart, Percutaneous Approach (ICD-10-PCS; 2022-01-20)
PROC: B2111ZZ Fluoroscopy of Multiple Coronary Arteries using Low Osmolar Contrast (ICD-10-PCS; 2022-01-20)
PROC: B2131ZZ Fluoroscopy of Multiple Coronary Artery Bypass Grafts using Low Osmolar Contrast (ICD-10-PCS; 2022-01-20)
DX: I25.700 Atherosclerosis of coronary artery bypass graft(s), unspecified, with unstable angina pectoris (principal); E11.65 Type 2 diabetes mellitus with hyperglycemia; I10 Essential (primary) hypertension; K21.9 Gastro-esophageal reflux disease without esophagitis; G89.29 Other chronic pain; M54.9 Dorsalgia, unspecified; E78.00 Pure hypercholesterolemia, unspecified; I25.2 Old myocardial infarction; R55 Syncope and collapse; Z95.1 Presence of aortocoronary bypass graft; Z95.5 Presence of coronary angioplasty implant and graft; Z79.4 Long term (current) use of insulin; Z79.82 Long term (current) use of aspirin; Z79.02 Long term (current) use of antithrombotics/antiplatelets; Z79.84 Long term (current) use of oral hypoglycemic drugs; Z87.891 Personal history of nicotine dependence; Z79.899 Other long term (current) drug therapy; Z20.822 Contact with and (suspected) exposure to COVID-19
CPT/HCPCS: 0240U; 36415; 70450; 71045; 72125; 78452; 80048; 80061; 80076; 82550; 82947; 83735; 83880; 84484; 85025; 85610; 85730; 92928; 92929; 93005; 93017; 93306; 93455; 93880; 93925; 96374; 96375; 99285; A9500; C1725; C1893; J0461; J1644; J1650; J2250; J2405; J2785; J3010; J7040; Q9967

== ENCOUNTER 2022-02-14 21:44 | Inpatient (IN) | payer SELFPAY ==
[2022-02-14] MEDS ORDERED: NITROGLYCERIN 0.4 MG/TAB SL ONE (22:23)
[2022-02-14 22:41] LABS: Absolute Lymphocytes (CBC) 1.6 K/uL (0.7-4.9); Hematocrit 42.4 % (39.6-49.0); Lymphocytes % 30.5 % (15.3-44.8); MCV 91.5 fL (80-100); MPV 7.4 fL (7.6-11.3); RBC Red Blood Cell Count 4.64 M/uL (4.33-5.43)
[2022-02-14 23:00] LABS: Troponin High Sensitivity 14.1 pg/mL (<58.9)
[2022-02-14] MEDS ORDERED: ACETAMINOPHEN 500 MG TAB ONE (23:28)
--- NOTE | 2022-02-14 23:39 | EDPHYS ---
Physician Documentation [facility] Name: Jorge Schultz Jr Age: 56 yrs Sex: Male : 1965 Arrival Date: 02/14/2022 Time: 21:47 Bed 2 Private MD: ED Physician Narciso Sheriff HPI: 02/14 23:50 This 56 yrs old Male presents to ER via Ambulatory with complaints of High rt Blood Pressure, Chest Pain. 23:50 Onset: The symptoms/episode began/occurred this morning. Modifying factors:. July with rt recent cardiac stenting about 1 month ago presents to the ED with chest pain, substernal, radiating to the jaw starting today. Is been constant since then. Is pressure-like in nature. Denies other acute complaints at this time. Symptoms are moderate in severity, no other aggravating alleviating factors. Patient states that he did take 324 of aspirin earlier today.. Historical: - Allergies: 22:10 No Known Allergies; bb - Home Meds: 22:10 Unable to obtain [Active]; bb - PMHx: 22:10 Anxiety; CAD; GERD; Glaucoma; High Cholesterol; Hypertension; IDDM; Myocardial bb infarction; - PSHx: 22:10 CABG; cardiac stents x 2; bb - Immunization history:: Client reports receiving the 2nd dose of the Covid vaccine. - Social history:: Smoking status: Patient denies any tobacco usage or history of. - Family history:: not pertinent. ROS: 23:50 Constitutional: Negative for fever, chills, and weight loss, Eyes: Negative for injury, rt pain, redness, and discharge, ENT: Negative for injury, pain, and discharge, Neck: Negative for injury, pain, and swelling, Abdomen/GI: Negative for abdominal pain, nausea, vomiting, diarrhea, and constipation, MS/Extremity: Negative for injury and deformity, Skin: Negative for injury, rash, and discoloration, Neuro: Negative for headache, weakness, numbness, tingling, and seizure, Psych: Negative for depression, anxiety, suicide ideation, homicidal ideation, and hallucinations. 23:50 Cardiovascular: Positive for chest pain, Negative for edema. 23:50 Respiratory: Positive for shortness of breath, Negative for cough. Exam: 23:49 ECG was reviewed by the Attending Physician. rt 23:50 Constitutional: This is a well developed, well nourished patient who is awake, alert, rt and in no acute distress. Head/Face: Normocephalic, atraumatic. Eyes: Pupils equal round and reactive to light, extra-ocular motions intact. Lids and lashes normal. Conjunctiva and sclera are non-icteric and not injected. Cornea within normal limits. Periorbital areas with no swelling, redness, or edema. ENT: Nares patent. No nasal discharge, no septal abnormalities noted. Tympanic membranes are normal and external auditory canals are clear. Oropharynx with no redness, swelling, or masses, exudates, or evidence of obstruction, uvula midline. Mucous membranes moist. Neck: Trachea midline, no thyromegaly or masses palpated, and no cervical lymphadenopathy. Supple, full range of motion without nuchal rigidity, or vertebral point tenderness. No Meningismus. Chest/axilla: Normal chest wall appearance and motion. Nontender with no deformity. No lesions are appreciated. Cardiovascular: Regular rate and rhythm with a normal S1 and S2. No gallops, murmurs, or rubs. Normal PMI, no JVD. No pulse deficits. Respiratory: Lungs have equal breath sounds bilaterally, clear to auscultation and percussion. No rales, rhonchi or wheezes noted. No increased work of breathing, no retractions or nasal flaring. Abdomen/GI: Soft, non-tender, with normal bowel sounds. No distension or tympany. No guarding or rebound. No evidence of tenderness throughout. Skin: Warm, dry with normal turgor. Normal color with no rashes, no lesions, and no evidence of cellulitis. MS/ Extremity: Pulses equal, no cyanosis. Neurovascular intact. Full, normal range of motion. Neuro: Awake and alert, GCS 15, oriented to person, place, time, and situation. Cranial nerves II-XII grossly intact. Motor strength 5/5 in all extremities. Sensory grossly intact. Cerebellar exam normal. Normal gait. Psych: Awake, alert, with orientation to person, place and time. Behavior, mood, and affect are within normal limits. Vital Signs: 22:08 BP 170 / 101; Pulse 75; Resp 16 S; Temp 98.7(O); Pulse Ox 99% on R/A; Weight 88 kg (R); bb Height 5 ft. 5 in. (165.10 cm) (R); Pain 7/10; 22:30 BP 149 / 92; Pulse 82; Resp 16; Pulse Ox 94% on R/A; Pain 7/10; tw5 23:00 BP 125 / 81; Pulse 70; Resp 18; Pulse Ox 97% ; vc1 02/15 00:00 BP 143 / 92; Pulse 82; Resp 20; Pulse Ox 97% ; vc1 02/14 22:08 Body Mass Index 32.28 (88.00 kg, 165.10 cm) bb MDM: 02/14 22:12 Patient medically screened. rt 23:50 Data reviewed: vital signs, nurses notes, old medical records, lab test result(s), EKG, rt radiologic studies, . 02/14 22:07 Order name: Basic Metabolic Panel; Complete Time: 23:05 tw5 02/14 22:07 Order name: CBC with Diff; Complete Time: 23:05 tw02/14 22:07 Order name: Troponin HS; Complete Time: 23:05 tw02/14 22:07 Order name: XRAY Chest (1 view) tw02/14 23:54 Order name: SARS RAPID; Complete Time: 01:43 tw02/15 02:46 Order name: CBC with Automated Diff EDMS 02/14 22:07 Order name: EKG; Complete Time: 22:08 tw02/14 22:07 Order name: Cardiac monitoring; Complete Time: 22:13 tw02/14 22:07 Order name: EKG - Nurse/Tech; Complete Time: 22:13 tw02/14 22:07 Order name: IV Saline Lock; Complete Time: 22:30 tw02/14 22:07 Order name: Labs collected and sent; Complete Time: 22:30 tw02/14 22:07 Order name: O2 Per Protocol; Complete Time: 22:13 02/14 22:07 Order name: O2 Sat Monitoring; Complete Time: 22:13 tw EC:49 Rate is 70 beats/min. Rhythm is regular, Normal Sinus Rhythm with No ectopy. QRS [place] rt is Normal. RI interval is normal. QRS interval is normal. QT interval is normal. No Q waves. Clinical impression: NSR w/ Non-specific ST/T Changes. Administered Medications: 22:24 Drug: Nitroglycerin 0.4 mg Route: Sublingual; tw5 22:32 Drug: Nitroglycerin 0.4 mg Route: Sublingual; tw5 22:47 Drug: Nitroglycerin 0.4 mg Route: Sublingual; vc1 02/15 00:00 Follow up: Response: No adverse reaction; Marked relief of symptoms; Pain is decreased vc1 02/14 23:35 Drug: Tylenol 1000 mg Route: PO; vc1 02/15 00:00 Follow up: Response: No adverse reaction; Marked relief of symptoms; Pain is decreased vc1 Disposition Summary: 02/14/22 23:39 Hospitalization Ordered Hospitalization Status: Observation rt Provider: Lenard Sanchez rt Condition: Stable rt Problem: new rt Symptoms: are resolved rt Bed/Room Type: Standard rt Location: Telemetry/MedSurg (observation)(02/15/22 01:50) mw Room Assignment: 410(02/15/22 01:50) mw Diagnosis - Chest pain, unspecified rt Forms: - Medication Reconciliation Form rt - SBAR form rt Signatures: Dispatcher [employer] EDCarolee Silverio RN RN Lucy Flores RN RN Christy Vicente tw5 Amanda Sauer RN RN vc1 Narciso Sheriff MD MD rt Corrections: (The following items were deleted from the chart) 02/14 23:55 23:39 Telemetry/MedSurg (observation) rt mw 23:55 23:39 rt mw 02/15 01:50 02/14 23:55 [facility] ER HOLD mw mw 02/15 01:50 02/14 23:55 ERHOLD- mw mw
--- NOTE | 2022-02-14 23:39 | ER ---
Nurse's Notes [facility] Name: Jorge Schultz Jr Age: 56 yrs Sex: Male : 1965 Arrival Date: 02/14/2022 Time: 21:47 Bed 2 Private MD: Diagnosis: Chest pain, unspecified Presentation: 02/14 22:08 Chief complaint: Patient states: he started having intermittent chest pain since 1000 bb this morning radiating to his left arm pt states he just had heart stents in December. Coronavirus screen: At this time, the client does not indicate any symptoms associated with coronavirus-19. Ebola Screen: No symptoms or risks identified at this time. Initial Sepsis Screen: Does the patient meet any 2 criteria? No. Patient's initial sepsis screen is negative. Does the patient have a suspected source of infection? No. Patient's initial sepsis screen is negative. Risk Assessment: Do you want to hurt yourself or someone else? Patient reports no desire to harm self or others. Onset of symptoms was February 14, 2022. 22:08 Method Of Arrival: Ambulatory bb 22:08 Acuity: AALIYAH 2 bb Historical: - Allergies: 22:10 No Known Allergies; bb - Home Meds: 22:10 Unable to obtain [Active]; bb - PMHx: 22:10 Anxiety; CAD; GERD; Glaucoma; High Cholesterol; Hypertension; IDDM; Myocardial bb infarction; - PSHx: 22:10 CABG; cardiac stents x 2; bb - Immunization history:: Client reports receiving the 2nd dose of the Covid vaccine. - Social history:: Smoking status: Patient denies any tobacco usage or history of. - Family history:: not pertinent. Screenin:00 [facility] ED Fall Risk Assessment (Adult) History of falling in the last 3 months, vc1 including since admission No falls in past 3 months (0 pts). Abuse screen: Denies threats or abuse. Nutritional screening: No deficits noted. Tuberculosis screening: No symptoms or risk factors identified. Assessment: 22:30 General: Appears in no apparent distress. uncomfortable, Behavior is calm, cooperative, tw5 appropriate for age. General: Reports "My chest pain has been kicking my ASS today.". Pain: Complains of pain in chest Pain radiates to left arm Pain began 10 AM. Cardiovascular: Capillary refill < 3 seconds is brisk in bilateral fingers Rhythm is sinus rhythm. Respiratory: No deficits noted. 23:30 Reassessment: Patient and/or family updated on plan of care and expected duration. Pain vc1 level reassessed. Patient is alert, oriented x 3, equal unlabored respirations, skin warm/dry/pink. Patient states feeling better. Patient states symptoms have improved. 02/15 00:38 Reassessment: No changes from previously documented assessment. Patient and/or family vc1 updated on plan of care and expected duration. Pain level reassessed. Vital Signs: 02/14 22:08 BP 170 / 101; Pulse 75; Resp 16 S; Temp 98.7(O); Pulse Ox 99% on R/A; Weight 88 kg (R); bb Height 5 ft. 5 in. (165.10 cm) (R); Pain 7/10; 22:30 BP 149 / 92; Pulse 82; Resp 16; Pulse Ox 94% on R/A; Pain 7/10; tw5 23:00 BP 125 / 81; Pulse 70; Resp 18; Pulse Ox 97% ; vc1 02/15 00:00 BP 143 / 92; Pulse 82; Resp 20; Pulse Ox 97% ; vc1 02/14 22:08 Body Mass Index 32.28 (88.00 kg, 165.10 cm) bb ED Course: 02/14 21:47 Patient arrived in ED. ja2 21:54 Christy aPgan is Primary Nurse. tw5 21:59 Narciso Sheriff MD is Attending Physician. rt 22:10 Triage completed. bb 22:10 Arm band placed on Patient placed in an exam room, on a stretcher, on secured entrance monitor, bb on pulse oximetry. EKG completed in triage. Results shown to MD. 22:10 Patient has correct armband on for positive identification. Placed in gown. Bed in low vc1 position. Call light in reach. Client placed on continuous cardiac and pulse oximetry monitoring. NIBP monitoring applied. 22:30 Basic Metabolic Panel Sent. tw5 22:30 CBC with Diff Sent. tw5 22:30 Troponin HS Sent. tw5 22:32 Initial lab(s) drawn, by me, sent to lab. Inserted saline lock: 20 gauge in left tw5 antecubital area, using aseptic technique. Blood collected. 22:32 Patient maintains SpO2 saturation greater than 95% on room air. tw5 22:44 XRAY Chest (1 view) In Process Unspecified. EDMS 23:38 Lenard Sanchez MD is Hospitalizing Provider. rt 02/15 00:00 No provider procedures requiring assistance completed. Patient admitted, IV remains in vc1 place. Administered Medications: 02/14 22:24 Drug: Nitroglycerin 0.4 mg Route: Sublingual; tw5 22:32 Drug: Nitroglycerin 0.4 mg Route: Sublingual; tw5 22:47 Drug: Nitroglycerin 0.4 mg Route: Sublingual; vc1 02/15 00:00 Follow up: Response: No adverse reaction; Marked relief of symptoms; Pain is decreased vc1 02/14 23:35 Drug: Tylenol 1000 mg Route: PO; vc1 02/15 00:00 Follow up: Response: No adverse reaction; Marked relief of symptoms; Pain is decreased vc1 Medication: 00:37 VIS not applicable for this client. vc1 Outcome: 02/14 23:39 Decision to Hospitalize by Provider. rt 02/15 00:00 Admitted to ER Hold. Please see [facility] for further documentation. vc1 Condition: good 00:00 Instructed on the need for admit. vc1 02:52 Patient left the ED. vc1 Signatures: Dispatcher [employer] EDMS Lucy Wright RN RN Karis Farley Tiffany tw5 Amanda Sauer RN RN vc1 Narciso Sheriff MD MD rt
[2022-02-15] MEDS ORDERED: ONDANSETRON 4 MG/2 ML VIAL IV PRN (00:44)
[2022-02-15] MEDS ORDERED: carisoprodoL 350 MG TAB PO PRN ×2 (00:44→09:42)
[2022-02-15] MEDS ORDERED: NITROGLYCERIN 0.4 MG/TAB SL PRN (00:44)
[2022-02-15] MEDS ORDERED: HYDROCODONE/APAP 10/325 TAB PO PRN ×2 (00:44)
[2022-02-15] MEDS ORDERED: ACETAMINOPHEN 500 MG TAB PO PRN (00:44)
[2022-02-15 00:54] VITALS: BMI 32.3
--- NOTE | 2022-02-15 01:07 | P.HP ---
Certification for Inpatient Patient admitted to: Observation With expected LOS: <2 Midnights Patient will require the following post-hospital care: None Practitioner: I am a practitioner with admitting privileges, knowledge of patient current condition, hospital course, and medical plan of care. Services: Services provided to patient in accordance with Admission requirements found in Title 42 Section 412.3 of the Code of Federal Regulations <Reinaldo Childs - Last Filed: 02/15/22 01:03> Patient History Date of Service: 02/15/22 Reason for admission: Chest pain History of Present Illness: 56-year-old male with history of CAD status post CABG with recent heart cath/stent placement x2 on 01/20/2022, insulin-dependent diabetes, chronic pain, hypertension, hyperlipidemia presents the emergency department for chest pain. He reports the pain began this morning around 10 or 11 AM while at rest the pain is described as pressure-like radiating to the left arm with associated shortness of breath. He reports the pain is relatively constant throughout the day he was evaluated in the emergency department his labs were significant for creatinine of 1.44 GFR 56 glucose 236 initial high-sensitivity troponin 14.1 chest x-ray negative for acute findings. Patient reports he has been compliant with his aspirin, Plavix and other cardiac medications. He was given nitroglycerin sublingual x3 in ED with minimal relief in his symptoms, he took aspirin prior to arrival to the emergency department. ED provider wishes to ad cortney under observation for further evaluation and management of chest pain. - Past Medical/Surgical History Has patient received pneumonia vaccine in the past: No Diabetic: Yes -: X3 MIs -: IDDM -: chronic back pain -: cataracts -: glaucoma rt eye -: cellulitis -: staph infection with CABG -: Glaucoma -: Staph infection wound chest -: cardiac cath -: lumbar epidural injection x3 -: CABG (May 29 2014) x 4 vessels -: cardiac stents 01/06 -: Cardiac stents x2 01/20/2022 Psychosocial/ Personal History: Patient lives at home with his . - Family History Mother -: Heart disease, Diabetes Father -: Stroke, Cancer Notes: Multiple CANCER Sister -: Cancer Notes: liver - Social History Smoking Status: Former smoker Alcohol use: No CD- Drugs: No Caffeine use: Yes Place of Residence: Home <Reinaldo Childs - Last Filed: 02/15/22 01:03> Date of Service: 02/15/22 <Lenard Sanchez - Last Filed: 02/15/22 11:07> Allergies No Known Drug Allergies Allergy (Verified 02/15/22 03:22) Unknown No Known Allergies Allergy (Uncoded 04/17/16 07:21) Unknown Home Medications: Aspirin [Aspirin EC 81 MG] 81 mg PO DAILY 10/15/19 Atorvastatin Calcium [Lipitor*] 20 mg PO BREAKFAST 10/15/19 Carisoprodol [Soma] 350 mg PO TIDP PRN 10/15/19 Clopidogrel Bisulfate [Plavix*] 75 mg PO BREAKFAST 10/15/19 Hydrocodone 10/APAP 325 [[place] 10/325*] 1 tab PO QIDP PRN 10/15/19 Insulin Glargine Human [Lantus*] 20 unit SQ BEDTIME 10/15/19 Liraglutide [Victoza 2-Imer] 1.8 mg SQ DAILY 10/15/19 Metformin HCl [Metformin HCl ER] 1,000 mg PO BID 10/15/19 Metoprolol Tartrate 100 mg PO BID* 10/15/19 Amlodipine [Norvasc*] 10 mg PO BREAKFAST 11/26/20 Losartan Potassium 100 mg PO DAILY 11/26/20 Review of Systems 10-point ROS is otherwise unremarkable Respiratory: Shortness of Breath Cardiovascular: Chest Pain <Reinaldo Childs - Last Filed: 02/15/22 01:03> Physical Examination - Physical Exam General: Alert, In no apparent distress, Oriented x3 HEENT: Atraumatic, PERRLA, Mucous membr. moist/pink, EOMI, Sclerae nonicteric Neck: Supple, 2+ carotid pulse no bruit, No LAD, Without JVD or thyroid abnormality Respiratory: Clear to auscultation bilaterally, Normal air movement Cardiovascular: Regular rate/rhythm, Normal S1 S2 Gastrointestinal: Normal bowel sounds, No tenderness Musculoskeletal: No tenderness Integumentary: No rashes Neurological: Normal speech, Normal strength at 5/5 x4 extr, Normal tone, Normal affect - Studies Laboratory Data (last 24 hrs) 02/14/22 22:24: WBC 5.30, Hgb 14.5, Hct 42.4, Plt Count 184 02/14/22 22:24: Sodium 135 L, Potassium 4.0, BUN 26 H, Creatinine 1.44 H, Glucose 236 H <Reinaldo Childs - Last Filed: 02/15/22 01:03> - Studies Laboratory Data (last 24 hrs) 02/15/22 02:10: Sodium 136, Potassium 3.9, BUN 25 H, Creatinine 1.24, Glucose 170 H, Total Bilirubin 0.1 L, AST 20, ALT 34, Alkaline Phosphatase 70 02/15/22 02:10: WBC 6.10, Hgb 14.9, Hct 42.8, Plt Count 186 02/14/22 22:24: WBC 5.30, Hgb 14.5, Hct 42.4, Plt Count 184 02/14/22 22:24: Sodium 135 L, Potassium 4.0, BUN 26 H, Creatinine 1.44 H, Glucose 236 H <Lenard Sanchez - Last Filed: 02/15/22 11:07> Assessment and Plan - Plan Assessment: Chest pain rule out ACS history CAD with CABG/recent cath with stent placement Diabetes mellitus type 2insulin-dependent with hyperglycemia Hypertension Hyperlipidemia Chronic pain Plan: Chest pain rule out ACS history CAD with CABG/recent cath with stent placement: Initial high-sensitivity troponin negative, trend troponin, monitor on telemetry, cardiology consult in place. Patient reports he has been compliant with his aspirin, Plavix and other cardiac medications since his heart catheterization which were performed on 01/20/2022 with stents placed to the left circumflex and OM1, patient has severe [place] coronary artery disease with patent LAD stent, occluded RCA proximally with patent SVG graft to the RCA. Appreciate further input from cardiology. Diabetes mellitus type 2insulin-dependent with hyperglycemia: ACHS Accu-Chek, sliding scale insulin. A1c in the morning. Hypertension: Home medications continued Hyperlipidemia: Home medications continued Chronic pain: Home medications continued DVT PPX:Lovenox Code status:full Discharge Plan: Home Plan to discharge in: 24 Hours - Advance Directives Does patient have a Living Will: No Does patient have a Durable POA for Healthcare: No - Code Status/Comfort Care Code Status Assessed: Yes (Full code) Critical Care: No Time Spent Managing Pts Care (In Minutes): 55 <Reinaldo Childs - Last Filed: 02/15/22 01:03> Physician Review: Patient Assessed, Agree with Above Assessment and Plan <Lenard Sanchez - Last Filed: 02/15/22 11:07>
[2022-02-15 01:36] LABS: SARS-CoV-2 Antigen Rapid Res Negative (Negative)
[2022-02-15 02:38] LABS: Absolute Lymphocytes (CBC) 1.6 K/uL (0.7-4.9); Hematocrit 42.8 % (39.6-49.0); Lymphocytes % 26.2 % (15.3-44.8); MCV 91.2 fL (80-100); MPV 7.6 fL (7.6-11.3); RBC Red Blood Cell Count 4.69 M/uL (4.33-5.43)
[2022-02-15 03:10] LABS: Albumin 3.6 g/dL (3.4-5.0); Bilirubin Total 0.1 mg/dL (0.2-1.0); Protein, Total 7.4 g/dL (6.4-8.2); Troponin High Sensitivity 13.7 pg/mL (<58.9)
[2022-02-15 03:11] LABS: Potassium 3.9 mmol/L (3.5-5.1)
[2022-02-15] MEDS: MORPHINE 2 MG/ML SYR IV PRN ×3 (03:52→17:23)
[2022-02-15] MEDS ORDERED: CLOPIDOGREL 75 MG TABLET PO SCH (08:00)
[2022-02-15] MEDS ORDERED: AMLODIPINE 10 MG TAB PO SCH (08:00)
[2022-02-15] MEDS ORDERED: ATORVASTATIN 20 MG TAB PO SCH (08:00)
[2022-02-15] MEDS: INSULIN -REGULAR HUMAN 50 UNIT/0.5 ML ML SQ SCH ×3 (08:29→17:24)
[2022-02-15] MEDS: METOPROLOL TAR 50 MG TAB PO SCH ×2 (08:30→14:13)
[2022-02-15] MEDS ORDERED: LOSARTAN POTASSIUM 50 MG TABLET PO SCH (09:00)
[2022-02-15] MEDS ORDERED: ENOXAPARIN 40 MG/0.4 ML SQ SCH (09:00)
[2022-02-15] MEDS ORDERED: ASPIRIN EC 81 MG TAB PO SCH (09:00)
[2022-02-15] MEDS ORDERED: INFLUENZA VACCINE (for 6+ mo) 0.5 ML DOSE IMVAC ONE (12:00)
--- NOTE | 2022-02-15 15:52 | RAD REPORT ---
Chest Single View: The lungs are clear. The heart is normal in size. Sternotomy wires are present.
--- NOTE | 2022-02-15 17:02 | EKG ---
Test Date: 2022-02-14 Test Time: 21:58:15 Line Assigner: ESTELA MEASUREMENT RESULTS: Intervals: Rate: 70 OK: 138 QRSD: 110 QT: 376 QTc: 406 [place]: P: 12 OK: 138 QRS: -59 T: -44 INTERPRETIVE STATEMENTS: Normal sinus rhythm Left anterior fascicular block Cannot rule out Anterior infarct, age undetermined Abnormal ECG Compared to ECG 01/18/2022 17:41:27 Myocardial infarct finding now present ST (T wave) deviation no longer present Electronically Signed On 02-15-22 17:01:07 TITLE COORDINATOR by Jose Maria Adair
[2022-02-15 17:29] VITALS: BP 126/75; TEMP 97.3
--- NOTE | 2022-02-15 17:36 | CON ---
Date of Consultation: 02/15/2022 Reason For Consultation: Chest pain. History Of Present Illness: A 56-year-old male with history of coronary artery disease, status post CABG, recent heart cath done by myself and had stents to the OM and the left circumflex, comes in wit h chest pain. He said his blood pressure was high at 200 range. Then, he felt some chest pain, pres sure like, no radiation and it was at rest, with nitroglycerin blood pressure improved and his chest pain resolved. The patient is feeling well now. No further chest pain. Past Medical History: Diabetes, coronary artery disease, hypertension. Past Surgical History: CABG and multiple stents. Medications: Refer to reconciliation sheet for detailed list. Allergies: NO KNOWN DRUG ALLERGIES. Family History: No premature coronary artery disease. Social History: He does not smoke or drink. Does not use any drugs. Review of Systems: All systems reviewed and they were negative except what mentioned in HPI. Physical Examination: Vital Signs: Reviewed. Head and Neck: Pupils are equal, reactive to light. Intact eye movements. No JVD. No cervical lym phadenopathy. Neck is supple. Thyroid is not enlarged. Lungs: Clear to auscultation bilaterally. No rhonchi, wheezing, or crackles. No accessory muscle u se. Heart: Regular rate and rhythm. No extra sounds. Abdomen: Soft, nontender. Bowel sounds positive. No organomegaly. No masses or hernia. No rigidi ty or rebound. Extremities: No edema, clubbing, or cyanosis. Intact pulses. Skin: No rash. Neurologic: Alert, awake, oriented x3. No acute focal deficits appreciated. Investigations: Cardiac enzymes are negative. BUN is 25, creatinine 0.24, hemoglobin 14.9. EKG wit hout acute specific abnormality. Assessment And Recommendations: 1.Chest pain, likely due to the elevated blood pressure and this is not an acute coronary syndrome. The patient does not have any exertional chest pain and cardiac enzymes are negative. From Cardiolo gy standpoint, the patient can be released and follow up as an outpatient as scheduled. 2.Hypertension. Adjust medication to control blood pressure. Recommend to add Imdur 30 mg daily. Cardiology will sign off and follow up with the patient as an outpatient. SR/MODL Voice ID: [id number] Report ID: [id number]
[2022-02-15 17:58] VITALS: O2SAT 97
[2022-02-15] MEDS ORDERED: ISOSORBIDE MONO SR 30 MG TAB PO SCH (18:00)
--- NOTE | 2022-02-15 20:20 | P.DS ---
Admission Date: 02/15/22 Discharge Date: 02/15/22 Disposition: ROUTINE DISCHARGE Discharge Condition: GOOD Reason for Admission: Chest pain Consultations: CardiologyDr. Adair Procedures: Chest x-ray 02/15/2020 The lungs are clear. The heart is normal in size. Sternotomy wires are present Brief History of Present Illness: 56-year-old male with history of CAD status post CABG with recent heart cath/stent placement x2 on 01/20/2022, insulin-dependent diabetes, chronic pain, hypertension, hyperlipidemia presents the emergency department for chest pain. He reports the pain began this morning around 10 or 11 AM while at rest the pain is described as pressure-like radiating to the left arm with associated shortness of breath. He reports the pain is relatively constant throughout the day he was evaluated in the emergency department his labs were significant for creatinine of 1.44 GFR 56 glucose 236 initial high-sensitivity troponin 14.1 chest x-ray negative for acute findings. Patient reports he has been compliant with his aspirin, Plavix and other cardiac medications. He was given nitroglycerin sublingual x3 in ED with minimal relief in his symptoms, he took aspirin prior to arrival to the emergency department. ED provider wishes to admit under observation for further evaluation and management of chest pain. Hospital Course: Patient was admitted with chest painhistory of CAD he was evaluated by cardiology who believe that chest pain is related to elevated blood pressure, not currently with ACS, his troponins trended negative. Cardiology recommended the addition of medication Imdur 30 mg daily as well as outpatient follow-up. Patient has appointment with a stem frazer on 02/18/2022. Prescription sent to pharmacy for Imdur. Vital Signs/Physical Exam: Temp Pulse Resp BP Pulse Ox 97.3 F 67 16 126/75 98 02/15/22 16:00 02/15/22 16:00 02/15/22 17:53 02/15/22 16:00 02/15/22 17:53 Laboratory Data at Discharge: WBC 6.10 K/uL (4.3-10.9) 02/15/22 02:10 Hgb 14.9 g/dL (13.6-17.9) 02/15/22 02:10 Hct 42.8 % (39.6-49.0) 02/15/22 02:10 Plt Count 186 K/uL (152-406) 02/15/22 02:10 Sodium 136 mmol/L (136-145) 02/15/22 02:10 Potassium 3.9 mmol/L (3.5-5.1) 02/15/22 02:10 BUN 25 mg/dL (7-18) H 02/15/22 02:10 Creatinine 1.24 mg/dL (0.70-1.30) 02/15/22 02:10 Glucose 170 mg/dL (74-106) H 02/15/22 02:10 Total Bilirubin 0.1 mg/dL (0.2-1.0) L 02/15/22 02:10 AST 20 U/L (15-37) 02/15/22 02:10 ALT 34 U/L (16-61) 02/15/22 02:10 Alkaline Phosphatase 70 U/L (45-117) 02/15/22 02:10 Home Medications: Aspirin [Aspirin EC 81 MG] 81 mg PO DAILY 10/15/19 Atorvastatin Calcium [Lipitor*] 20 mg PO BREAKFAST 10/15/19 Carisoprodol [Soma] 350 mg PO TIDP PRN 10/15/19 Clopidogrel Bisulfate [Plavix*] 75 mg PO BREAKFAST 10/15/19 Hydrocodone 10/APAP 325 [[place] 10/325*] 1 tab PO QIDP PRN 10/15/19 Insulin Glargine Human [Lantus*] 20 unit SQ BEDTIME 10/15/19 Liraglutide [Victoza 2-Imer] 1.8 mg SQ DAILY 10/15/19 Metformin HCl [Metformin HCl ER] 1,000 mg PO BID 10/15/19 Metoprolol Tartrate 100 mg PO BID* 10/15/19 Amlodipine [Norvasc*] 10 mg PO BREAKFAST 11/26/20 Losartan Potassium 100 mg PO DAILY 11/26/20 Isosorbide Mononitrate [Isosorbide Mononitrate ER] 30 mg PO DAILY #30 tab 02/15/22 New Medications: Isosorbide Mononitrate [Isosorbide Mononitrate ER] 30 mg PO DAILY #30 tab Diet: ADA Activity: Ad jennifer Followup: Eduardo Brush MD [ACTIVE - CAN ADMIT] - 2-3 Days NONE,NONE [Primary Care Provider] - 1-2 Weeks (call to schedule an appointment) Time spent managing pt's care (in minutes): 30
== END 2022-02-15 19:15 | disposition home or self-care (01) | DRG 305 ==
LOC: ER 21:44 → ERHOLD 02-15 00:30 → 4TH 02-15 02:20 → OBSVTOIN 02-15 10:29
PROVIDERS: ADMIT Internal Medicine; ATTEND Internal Medicine
DX: I10 Essential (primary) hypertension (principal); K21.9 Gastro-esophageal reflux disease without esophagitis; E78.5 Hyperlipidemia, unspecified; G89.29 Other chronic pain; M54.9 Dorsalgia, unspecified; E11.65 Type 2 diabetes mellitus with hyperglycemia; I25.10 Atherosclerotic heart disease of native coronary artery without angina pectoris; I25.2 Old myocardial infarction; Z95.5 Presence of coronary angioplasty implant and graft; Z95.1 Presence of aortocoronary bypass graft; Z79.4 Long term (current) use of insulin; Z79.82 Long term (current) use of aspirin; Z79.02 Long term (current) use of antithrombotics/antiplatelets; Z79.84 Long term (current) use of oral hypoglycemic drugs; Z87.891 Personal history of nicotine dependence; Z79.899 Other long term (current) drug therapy; Z20.822 Contact with and (suspected) exposure to COVID-19
CPT/HCPCS: 36415; 71045; 80048; 80053; 82947; 83036; 84484; 85025; 85379; 87811; 93005; 99285; G0378; J1650; J1815; J2270; J2405

== ENCOUNTER 2022-05-12 16:58 | Observation (INO) | payer SELFPAY ==
[2022-05-12 17:49] LABS: Absolute Lymphocytes (CBC) 1.5 K/uL (0.7-4.9); Hematocrit 44.1 % (39.6-49.0); Lymphocytes % 17.5 % (15.3-44.8); MCV 90.4 fL (80-100); MPV 6.8 fL (7.6-11.3); RBC Red Blood Cell Count 4.88 M/uL (4.33-5.43)
[2022-05-12] MEDS ORDERED: MORPHINE 4 MG/ML SYR ONE (18:15)
[2022-05-12] MEDS ORDERED: ONDANSETRON 4 MG/2 ML VIAL ONE (18:16)
[2022-05-12 18:21] LABS: Potassium 3.8 mEq/L (3.5-5.1)
[2022-05-12 18:22] LABS: Troponin High Sensitivity 9.5 (<58.9)
[2022-05-12 18:26] LABS: SARS-CoV-2 Antigen Rapid Res Negative (Negative)
--- NOTE | 2022-05-12 18:28 | RAD REPORT ---
EXAM DESCRIPTION: RAD - Chest Single View - 05/12/2022 6:22 pm CLINICAL HISTORY: CHEST PAIN Chest pain. COMPARISON: <Comparisons> FINDINGS: Portable technique limits examination quality. The lungs are grossly clear. The heart is normal in size. No displaced fractures.Sternotomy wires. IMPRESSION: No acute intrathoracic process suspected.
[2022-05-12] MEDS ORDERED: NITROGLYCERIN 0.4 MG/TAB SL ONE (19:06)
--- NOTE | 2022-05-12 20:05 | RAD REPORT ---
EXAM DESCRIPTION: CT - Chest For Pe Angio - 05/12/2022 7:56 pm CLINICAL HISTORY: Chest pain. chest pain, sob COMPARISON: <Comparisons> TECHNIQUE: CT angiogram of the pulmonary arteries was performed with MIP. All CT scans are performed using dose optimization technique as appropriate and may include automated exposure control or mA/KV adjustment according to patient size. FINDINGS: No evidence of pulmonary thromboembolism. No acute aortic finding demonstrated. The lungs are clear. No significant pericardial or pleural fluid. No concerning bony finding. IMPRESSION: No evidence of pulmonary thromboembolism. No acute lung findings.
--- NOTE | 2022-05-12 20:31 | EDPHYS ---
Physician Documentation [facility] Name: Jorge Schultz Jr Age: 57 yrs Sex: Male : 1965 Arrival Date: 05/12/2022 Time: 16:59 Bed 18 Private MD: Felipe Sinha ED Physician Tee Bragg HPI: 05/12 17:23 This 57 yrs old Male presents to ER via Unassigned with complaints of Chest jmm Pain, Shortness Of Breath. 17:23 Onset: The symptoms/episode began/occurred acutely, 1 hour(s) ago. This is a 57 year jmm old male with a history of cad that presents to the ED with complaints of substernal chest pain which radiates into his left arm. 2 Stents placed this past December. Also complains of mild shortness of breath. Patient took 4, 81 mg aspirin prior to arrival. . Historical: - Allergies: 17:24 No Known Allergies; vg1 - PMHx: 17:24 Anxiety; CAD; GERD; Glaucoma; High Cholesterol; Hypertension; IDDM; Myocardial vg1 infarction; - PSHx: 17:24 CABG; cardiac stents x 2; vg1 - Immunization history:: Client reports receiving the 2nd dose of the Covid vaccine. - Social history:: Smoking status: Patient denies any tobacco usage or history of. ROS: 17:23 Constitutional: Negative for fever, chills, and weight loss. jmm 17:23 Cardiovascular: Positive for chest pain. 17:23 Respiratory: Positive for shortness of breath. 17:23 All other systems are negative. Exam: 17:23 Constitutional: This is a well developed, well nourished patient who is awake, alert, jmm and in no acute distress. Head/Face: atraumatic. Eyes: EOMI, no conjunctival erythema appreciated ENT: Moist Mucus Membranes Neck: Trachea midline, Supple Chest/axilla: Normal chest wall appearance and motion. Cardiovascular: Regular rate and rhythm. No edema appreciated Respiratory: Normal respirations, no respiratory distress appreciated Abdomen/GI: Non distended Skin: General appearance color normal MS/ Extremity: Moves all extremities, no obvious deformities appreciated, no edema noted to the lower extremities Neuro: Awake and alert Psych: Behavior is normal, Mood is normal, Patient is cooperative and pleasant Vital Signs: 17:22 BP 136 / 101; Pulse 93; Resp 18; Temp 97.7(O); Pulse Ox 99% on R/A; Weight 86.18 kg; vg1 Height 5 ft. 5 in. ; Pain 8/10; 17:35 BP 146 / 87; Pulse 87; Resp 16; Pulse Ox 100% on R/A; db 18:15 BP 137 / 82; Pulse 86; Resp 16; Pulse Ox 100% ; db 18:45 BP 127 / 81; Pulse 75; Resp 18; Pulse Ox 100% on R/A; db 19:42 BP 109 / 71; Pulse 81; Resp 18 S; Pulse Ox 100% on R/A; as6 21:33 BP 132 / 80; Pulse 71; Resp 14 S; Pulse Ox 99% on R/A; as6 22:31 BP 117 / 75; Pulse 64; Resp 14 S; Pulse Ox 100% on R/A; as6 17:22 Body Mass Index 31.62 (86.18 kg, 165.1 cm) vg1 17:22 Pain Scale: Adult vg1 MDM: 17:23 Patient medically screened. [facility] 20:26 Data reviewed: vital signs, nurses notes, lab test result(s). Consideration of [facility] Admission/Observation Patient was admitted/placed on observation. Management of patient was discussed with the following: Hospitalist: Nydia Brandt. I considered the following discharge prescriptions or medication management in the emergency department Medications were administered in the Emergency Department. See MAR. Independent interpretation of the following test(s) in the Emergency Department X-Ray: My interpretation is No infiltrate. Counseling: I had a detailed discussion with the patient and/or guardian regarding: the historical points, exam findings, and any diagnostic results supporting the discharge/admit diagnosis, lab results, radiology results, the need for further work-up and treatment in the hospital. 05/12 17:23 Order name: Basic Metabolic Panel; Complete Time: 18:34 [facility] 05/12 17:23 Order name: CBC with Diff; Complete Time: 17:55 [facility] 05/12 17:23 Order name: Troponin HS; Complete Time: 18:34 [facility] 05/12 17:23 Order name: SARS RAPID; Complete Time: 18:34 [facility] 05/12 17:23 Order name: XRAY Chest (1 view); Complete Time: 18:34 [facility] 03/21 19:04 Order name: CT Chest For PE Angio; Complete Time: 20:14 [facility] 05/12 17:23 Order name: EKG; Complete Time: 17:24 [facility] 05/12 17:23 Order name: Cardiac monitoring; Complete Time: 17:43 [facility] 05/12 17:23 Order name: EKG - Nurse/Tech; Complete Time: 17:43 [facility] 05/12 17:23 Order name: IV Saline Lock; Complete Time: 17:42 [facility] 05/12 17:23 Order name: Labs collected and sent; Complete Time: 17:42 [facility] 05/12 17:23 Order name: O2 Per Protocol; Complete Time: 17:43 [facility] 05/12 17:23 Order name: O2 Sat Monitoring; Complete Time: 17:43 [facility] Administered Medications: 18:10 Drug: Ondansetron IVP 4 mg Route: IVP; Site: right antecubital; db 19:13 Follow up: Response: No adverse reaction db 18:12 Drug: morphine IVP or IV 4 mg Route: IVP; Infused Over: 4 mins; Site: right antecubital;db 19:13 Follow up: Response: No adverse reaction db 19:03 Drug: Nitroglycerin Sublingual 0.4 mg Route: Sublingual; db 22:45 Follow up: Response: No adverse reaction as6 20:52 Drug: morphine IVP or IV 2 mg Route: IVP; Infused Over: 4 mins; Site: right antecubital;as6 22:44 Follow up: Response: No adverse reaction as6 Disposition Summary: 05/12/22 20:30 Hospitalization Ordered Hospitalization Status: Observation [facility] Provider: Bradly Agosto Location: Telemetry/MedSur (observation) [facility] Condition: Stable [facility] Problem: new [facility] Symptoms: are unchanged [facility] Bed/Room Type: Standard [facility] Room Assignment: 207(05/12/22 22:30) Diagnosis - Chest pain, unspecified [facility] Forms: - Medication Reconciliation Form [facility] - SBAR form [facility] Addendum: 05/14/2022 00:45 Co-signature as Attending Physician, Tee Bragg MD I reviewed the patient's care r n provided by the Advanced Practice Provider and agree with the diagnosis and treatment plan. Signatures: Dispatcher [employer] EDDorian Berry PA PA jmm Nieto Tee, MD MD rn Braulio, Carol RN RN cg Allison Ramsey RN RN vg1 Faisal Howe RN RN as6 Yola Dominguez RN RN db Corrections: (The following items were deleted from the chart) 05/12 17:30 17:23 This is a 57 year old male with a history of cad that presents to the ED with [facility] complaints of substernal chest pain which radiates into his left arm. 2 Stents placed this past January. Also complains of mild shortness of breath. Patient took 4, 81 mg aspirin prior to arrival. . [facility] 22:30 20:30 [facility]
--- NOTE | 2022-05-12 20:31 | ER ---
Nurse's Notes [facility] Name: Jorge Schultz Jr Age: 57 yrs Sex: Male : 1965 Arrival Date: 05/12/2022 Time: 16:59 Bed 18 Private MD: Felipe Sinha Diagnosis: Chest pain, unspecified Presentation: 05/12 17:22 Chief complaint: Patient states: CP that radiates Left arm with SOB, states took 4 baby vg1 aspirin; also stated two stents placed in December 2021 and widowmaker 50% blockage. Denies N/V. Coronavirus screen: Vaccine status: Patient reports receiving the 2nd dose of the covid vaccine. Client denies travel out of the [place] in the last 14 days. Ebola Screen: Patient negative for fever greater than or equal to 101.5 degrees Fahrenheit, and additional compatible Ebola Virus Disease symptoms Patient denies exposure to infectious person. Patient denies travel to an Ebola-affected area in the 21 days before illness onset. Initial Sepsis Screen: Does the patient meet any 2 criteria? HR > 90 bpm. Does the patient have a suspected source of infection? No. Patient's initial sepsis screen is negative. Risk Assessment: Do you want to hurt yourself or someone else? Patient reports no desire to harm self or others. Onset of symptoms was May 12, 2022. 17:22 Method Of Arrival: Wheelchair vg1 17:22 Acuity: AALIYAH 2 vg1 Triage Assessment: 17:24 General: Appears uncomfortable, Behavior is cooperative. Pain: Complains of pain in vg1 chest Pain radiates to left arm Pain currently is 8 out of 10 on a pain scale. Neuro: Level of Consciousness is awake, alert, obeys commands, Oriented to person, place, time, situation. Cardiovascular: Patient's skin is warm and dry. Respiratory: Reports shortness of breath at rest on exertion Airway is patent Respiratory effort is even, unlabored. GI: Patient currently denies nausea, vomiting. Historical: - Allergies: 17:24 No Known Allergies; vg1 - PMHx: 17:24 Anxiety; CAD; GERD; Glaucoma; High Cholesterol; Hypertension; IDDM; Myocardial vg1 infarction; - PSHx: 17:24 CABG; cardiac stents x 2; vg1 - Immunization history:: Client reports receiving the 2nd dose of the Covid vaccine. - Social history:: Smoking status: Patient denies any tobacco usage or history of. Screenin:44 [facility] ED Fall Risk Assessment (Adult) History of falling in the last 3 months, db including since admission No falls in past 3 months (0 pts) Confusion or Disorientation No (0 pts) Intoxicated or Sedated No (0 pts) Impaired Gait No (0 pts) Mobility Assist Device Used No (0 pt) Altered Elimination No (0 pt) Score/Fall Risk Level 0 - 2 = Low Risk Oriented to surroundings, Maintained a safe environment. Abuse screen: Denies threats or abuse. Denies injuries from another. Nutritional screening: No deficits noted. Tuberculosis screening: No symptoms or risk factors identified. Assessment: 17:43 Reassessment: Patient and/or family updated on plan of care and expected duration. Pain db level reassessed. Patient is alert, oriented x 3, equal unlabored respirations, skin warm/dry/pink. chest pain started today about 2 pm. States has had 2 previous heart attacks with Stent and CABG. General: Appears in no apparent distress. comfortable. Pain: Complains of pain in chest Pain radiates to left arm Pain began suddenly. Neuro: Level of Consciousness is awake, alert, obeys commands, Oriented to person, place, time, situation, Speech is normal. Cardiovascular: Reports chest pain. Respiratory: Airway is patent Respiratory effort is even, unlabored, Respiratory pattern is regular, symmetrical. 18:54 Reassessment: Patient appears in no apparent distress at this time. Patient and/or db family updated on plan of care and expected duration. Pain level reassessed. Patient is alert, oriented x 3, equal unlabored respirations, skin warm/dry/pink. 19:42 Reassessment: Patient appears in no apparent distress at this time. Patient and/or as6 family updated on plan of care and expected duration. Pain level reassessed. Vital Signs: 17:22 BP 136 / 101; Pulse 93; Resp 18; Temp 97.7(O); Pulse Ox 99% on R/A; Weight 86.18 kg; vg1 Height 5 ft. 5 in. ; Pain 8/10; 17:35 BP 146 / 87; Pulse 87; Resp 16; Pulse Ox 100% on R/A; db 18:15 BP 137 / 82; Pulse 86; Resp 16; Pulse Ox 100% ; db 18:45 BP 127 / 81; Pulse 75; Resp 18; Pulse Ox 100% on R/A; db 19:42 BP 109 / 71; Pulse 81; Resp 18 S; Pulse Ox 100% on R/A; as6 21:33 BP 132 / 80; Pulse 71; Resp 14 S; Pulse Ox 99% on R/A; as6 22:31 BP 117 / 75; Pulse 64; Resp 14 S; Pulse Ox 100% on R/A; as6 17:22 Body Mass Index 31.62 (86.18 kg, 165.1 cm) vg1 17:22 Pain Scale: Adult vg1 ED Course: 16:59 Patient arrived in ED. rg4 16:59 Felipe Sinha MD is Private Physician. rg4 17:15 Dorian Patel PA is PHCP. jmm 17:15 Tee Bragg MD is Attending Physician. jmm 17:24 Triage completed. vg1 17:24 Arm band placed on. vg1 17:36 Inserted saline lock: 20 gauge in right upper arm, using aseptic technique. Blood zm collected. 17:42 Yola Dominguez, RN is Primary Nurse. db 17:42 SARS RAPID Sent. zm 17:42 Basic Metabolic Panel Sent. zm 17:42 CBC with Diff Sent. zm 17:42 Troponin HS Sent. zm 17:44 Patient has correct armband on for positive identification. Client placed on continuous db cardiac and pulse oximetry monitoring. NIBP monitoring applied. Warm blanket given. 18:24 XRAY Chest (1 view) In Process Unspecified. EDMS 19:42 Warm blanket given. as6 19:58 CT Chest For PE Angio In Process Unspecified. EDMS 19:58 CT completed. Patient tolerated procedure well. jg10 20:30 Bradly Agosto is Hospitalizing Provider. jmm 22:32 No provider procedures requiring assistance completed. Patient admitted, IV remains in as6 place. Patient maintains SpO2 saturation greater than 95% on room air. Administered Medications: 18:10 Drug: Ondansetron IVP 4 mg Route: IVP; Site: right antecubital; db 19:13 Follow up: Response: No adverse reaction db 18:12 Drug: morphine IVP or IV 4 mg Route: IVP; Infused Over: 4 mins; Site: right antecubital;db 19:13 Follow up: Response: No adverse reaction db 19:03 Drug: Nitroglycerin Sublingual 0.4 mg Route: Sublingual; db 22:45 Follow up: Response: No adverse reaction as6 20:52 Drug: morphine IVP or IV 2 mg Route: IVP; Infused Over: 4 mins; Site: right antecubital;as6 22:44 Follow up: Response: No adverse reaction as6 Medication: 22:31 VIS not applicable for this client. as6 Outcome: 20:30 Decision to Hospitalize by Provider. hailey 22:32 Condition: stable as6 22:32 Instructed on the need for admit. 22:44 Admitted to Med/surg accompanied by tech, via wheelchair, room 207, with chart, Report as6 called to Tori SALINAS 23:12 Patient left the ED. as6 Signatures: Dispatcher [employer] EDMS Dorian Patel PA PA jmm Garcia, Rubi rg4 Allison Ramsey RN RN vg1 Faisal Howe RN RN as6 Nia Newberry Danielle, RN RN db [facility]
--- NOTE | 2022-05-12 20:49 | P.HP ---
Certification for Inpatient Patient admitted to: Observation With expected LOS: <2 Midnights Patient will require the following post-hospital care: None Practitioner: I am a practitioner with admitting privileges, knowledge of patient current condition, hospital course, and medical plan of care. Services: Services provided to patient in accordance with Admission requirements found in Title 42 Section 412.3 of the Code of Federal Regulations Patient History Date of Service: 05/12/22 Primary Care Provider: Bharath Reason for admission: Chest Pain History of Present Illness: Patient is a 57-year-old male with history of CAD s/p CABG, insulin-dependent type 2 diabetes, chronic pain, hypertension, and hyperlipidemia who presented to the emergency department with complaints of chest pain. Pain is described as pressure-like radiating to the left arm with associated shortness of breath that began this morning. Labs are significant for sodium 128, chloride 97, BUN 19, glucose 149, troponin 9.6. Chest x-ray and CTA negative for acute findings. Patient reports he has been compliant with his aspirin, Plavix and other cardiac medications. He was given nitroglycerin sublingual and morphine in ED with moderate relief in his symptoms, he took 324 mg aspirin prior to arrival. ED provider wishes to admit under observation for further evaluation and management of chest pain. Allergies No Known Drug Allergies Allergy (Verified 02/15/22 03:22) Unknown No Known Allergies Allergy (Uncoded 04/17/16 07:21) Unknown Home medications list reviewed: Yes Home Medications: Aspirin [Aspirin EC 81 MG] 81 mg PO DAILY 10/15/19 Atorvastatin Calcium [Lipitor*] 20 mg PO BREAKFAST 10/15/19 Carisoprodol [Soma] 350 mg PO TIDP PRN 10/15/19 Clopidogrel Bisulfate [Plavix*] 75 mg PO BREAKFAST 10/15/19 Hydrocodone 10/APAP 325 [[place] 10/325*] 1 tab PO QIDP PRN 10/15/19 Insulin Glargine Human [Lantus*] 20 unit SQ BEDTIME 10/15/19 Liraglutide [Victoza 2-Imer] 1.8 mg SQ DAILY 10/15/19 Metformin HCl [Metformin HCl ER] 1,000 mg PO BID 10/15/19 Metoprolol Tartrate 100 mg PO BID* 10/15/19 Amlodipine [Norvasc*] 10 mg PO BREAKFAST 11/26/20 Losartan Potassium 100 mg PO DAILY 11/26/20 Isosorbide Mononitrate [Isosorbide Mononitrate ER] 30 mg PO DAILY #30 tab 02/15/22 - Past Medical/Surgical History Diabetic: Yes -: X3 MIs -: IDDM -: chronic back pain -: cataracts -: glaucoma rt eye -: cardiac cath -: lumbar epidural injection x3 -: CABG (May 29 2014) x 4 vessels -: Cardiac stents x2 01/20/2022 Psychosocial/ Personal History: Patient lives at home with his . - Family History Mother -: Heart disease, Diabetes Father -: Stroke, Cancer Notes: Multiple CANCER Sister -: Cancer Notes: liver - Social History Smoking Status: Never smoker Alcohol use: No CD- Drugs: No Caffeine use: Yes Place of Residence: Home Review of Systems Respiratory: Shortness of Breath Cardiovascular: Chest Pain Physical Examination - Vital Signs Temperature: 97.7 F Blood Pressure: 109/71 Pulse: 81 Respirations: 18 Pulse Ox (%): 100 - Physical Exam General: Alert, In no apparent distress HEENT: Atraumatic, EOMI, Sclerae nonicteric Neck: Supple, 2+ carotid pulse no bruit Respiratory: Clear to auscultation bilaterally, Normal air movement Cardiovascular: Regular rate/rhythm, Normal S1 S2 Gastrointestinal: Normal bowel sounds, No tenderness Musculoskeletal: No tenderness Integumentary: No rashes Neurological: Normal speech, Normal affect - Studies Laboratory Data (last 24 hrs) 05/12/22 17:34: WBC 8.40, Hgb 15.1, Hct 44.1, Plt Count 237 05/12/22 17:34: Sodium 128 L, Potassium 3.8, BUN 19 H, Creatinine 1.00, Glucose 149 H Assessment and Plan - Problems (Diagnosis) (1) Coronary artery disease Current Visit: Yes Status: Chronic Qualifiers: Coronary Disease-Associated Artery/Lesion type: bypass graft [place] vs. 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 Initial troponin, chest xray/CTA, EKG all negative. Trend troponin. Nitro & morphine PRN chest pain. Aspirin and atorvastatin daily. Monitor on telemetry, cardiology consult in place. Patient reports he has been compliant with his medications. He has severe [place] CAD with patent LAD stent, occluded RCA proximally with patent SVG graft to the RCA. ACHS Accu-Chek, sliding scale insulin. A1c & lipid panel in the morning. BP has been normotensive. Lovenox for VTE prophylaxis. Full code. Discharge Plan: Home Plan to discharge in: 24 Hours - Advance Directives Does patient have a Living Will: No Does patient have a Durable POA for Healthcare: No - Code Status/Comfort Care Code Status Assessed: Yes Code Status: Full Code Physician Review: Patient Assessed, Agree with Above Assessment and Plan Critical Care: No Time Spent Managing Pts Care (In Minutes): 50
[2022-05-12] MEDS ORDERED: MORPHINE 2 MG/ML SYR ONE (20:53)
[2022-05-12 23:24] VITALS: BMI 31.4
[2022-05-12] MEDS ORDERED: ACETAMINOPHEN 500 MG TAB PO PRN (23:31)
[2022-05-12] MEDS ORDERED: ATORVASTATIN 40 MG TAB PO SCH (23:31)
[2022-05-12] MEDS ORDERED: NITROGLYCERIN 0.4 MG/TAB SL PRN (23:31)
[2022-05-12] MEDS ORDERED: ONDANSETRON 4 MG/2 ML VIAL IV PRN (23:31)
[2022-05-12] MEDS ORDERED: NA CHLORIDE 0.9% 1,000 ML IV SCH (23:31)
[2022-05-13] MEDS: MORPHINE 2 MG/ML SYR IV PRN ×3 (00:13→12:45)
[2022-05-13] MEDS: INSULIN -REGULAR HUMAN 50 UNIT/0.5 ML ML SQ SCH ×3 (00:21→11:28)
[2022-05-13 01:19] LABS: Specific Gravity 1.011 (1.005-1.030); Urine Bacteria <20 /HPF (<20); Urine Bilirubin NEGATIVE (Negative); Urine Blood Negative (Negative); Urine Clarity Clear (Clear); Urine Color Colorless (Yellow); Urine Glucose NEGATIVE (Negative); Urine Mucus Slight /HPF (None Seen); Urine Protein NEGATIVE (Negative); Urine RBC None Seen /HPF (None Seen); Urine Urobilinogen Normal (Normal)
[2022-05-13 03:40] LABS: Absolute Lymphocytes (CBC) 1.6 K/uL (0.7-4.9); MCV 90.2 fL (80-100); MPV 7.1 fL (7.6-11.3); RBC Red Blood Cell Count 4.65 M/uL (4.33-5.43)
[2022-05-13 04:04] LABS: Magnesium 1.9 mg/dL (1.6-2.4); Phosphorus 3.3 mg/dL (2.5-4.9); Potassium 4.1 mEq/L (3.5-5.1)
[2022-05-13 04:05] LABS: Thyroid Stimulating Hormone 4.26 uIU/mL (0.358-3.740)
[2022-05-13] MEDS ORDERED: ASPIRIN EC 81 MG TAB PO SCH (09:00)
[2022-05-13] MEDS ORDERED: ENOXAPARIN 40 MG/0.4 ML SQ SCH (09:00)
--- NOTE | 2022-05-13 13:45 | P.DS ---
Admission Date: 05/12/22 Discharge Date: 05/13/22 Primary Care Provider: Bharath Disposition: ROUTINE DISCHARGE Discharge Condition: FAIR Reason for Admission: Chest Pain - Problems (1) Coronary artery disease Current Visit: Yes Status: Chronic Qualifiers: Coronary Disease-Associated Artery/Lesion type: bypass graft [place] vs. 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: with termite exterminator use Diabetes mellitus complication status: with hyperglycemia Qualified Code(s): E11.65 - Type 2 diabetes mellitus with hyperglycemia; Z79.4 - halfway (current) use of insulin (3) Hypertension Current Visit: Yes Status: Chronic Qualifiers: Hypertension type: primary hypertension Qualified Code(s): I10 - Essential (primary) hypertension (4) Chest pain Onset Date: 07/29/15 Current Visit: No Status: Acute Qualifiers: Chest pain type: unspecified Qualified Code(s): R07.9 - Chest pain, unspecified (5) Hypercholesterolemia Onset Date: 12/31/14 Current Visit: No Status: Chronic Brief History of Present Illness: Patient is a 57-year-old male with history of CAD s/p CABG, insulin-dependent type 2 diabetes, chronic pain, hypertension, and hyperlipidemia who presented to the emergency department with complaints of chest pain. Pain was described as pressure-like radiating to the left arm with associated shortness of breath that began this morning. Labs significant for sodium 128, chloride 97, BUN 19, glucose 149, troponin 9.6. Chest x-ray and CTA negative for acute findings. Patient reports he has been compliant with his aspirin, Plavix and other cardiac medications. He was given nitroglycerin sublingual and morphine in ED with moderate relief in his symptoms, he took 324 mg aspirin prior to arrival. Patient hospitalized for ACS rule out. Hospital Course: Patient placed under observation on the medical floor. Troponin trended negative. He was chest pain-free during the hospital stay. ACS ruled out. Noted patient had a recent cardiac cath with cardiac stents-about 4 months ago. Patient to follow-up with cardiology as an outpatient for stress test. Vital Signs/Physical Exam: Temp Pulse Resp BP Pulse Ox 98.1 F 83 83 H 154/95 H 97 05/13/22 12:00 05/13/22 12:00 05/13/22 12:00 05/13/22 12:00 05/13/22 12:00 General: Alert, In no apparent distress, Oriented x3 HEENT: Mucous membr. moist/pink Neck: JVD not distended Respiratory: Clear to auscultation bilaterally, Normal air movement Cardiovascular: No edema, Regular rate/rhythm, Normal S1 S2 Gastrointestinal: Soft and benign, Non-distended Musculoskeletal: No swelling Integumentary: No rashes Neurological: Normal strength at 5/5 x4 extr Laboratory Data at Discharge: WBC 5.60 thou/uL (4.3-10.9) 05/13/22 02:41 Hgb 14.9 g/dL (13.6-17.9) 05/13/22 02:41 Hct 42.0 % (39.6-49.0) 05/13/22 02:41 Plt Count 227 thou/uL (152-406) 05/13/22 02:41 Sodium 136 mEq/L (136-145) D 05/13/22 02:41 Potassium 4.1 mEq/L (3.5-5.1) 05/13/22 02:41 BUN 15 mg/dL (7-18) 05/13/22 02:41 Creatinine 0.94 mg/dL (0.70-1.30) 05/13/22 02:41 Glucose 207 mg/dL (74-106) H 05/13/22 02:41 Phosphorus 3.3 mg/dL (2.5-4.9) 05/13/22 02:41 Magnesium 1.9 mg/dL (1.6-2.4) 05/13/22 02:41 Triglycerides 207 mg/dL (<150) H 05/13/22 02:41 Cholesterol 151 mg/dL (<200) 05/13/22 02:41 HDL Cholesterol 43 mg/dL (40-60) 05/13/22 02:41 Cholesterol/HDL Ratio 3.51 05/13/22 02:41 Home Medications: Aspirin [Aspirin EC 81 MG] 81 mg PO DAILY 10/15/19 Atorvastatin Calcium [Lipitor*] 40 mg PO BREAKFAST 10/15/19 Carisoprodol [Soma] 350 mg PO TIDP PRN 10/15/19 Clopidogrel Bisulfate [Plavix*] 75 mg PO BEDTIME 10/15/19 Hydrocodone 10/APAP 325 [[place] 10/325*] 1 tab PO QIDP PRN 10/15/19 Insulin Glargine Human [Lantus*] 20 unit SQ BEDTIME 10/15/19 Liraglutide [Victoza 2-Imer] 1.8 mg SQ DAILY 10/15/19 Metformin HCl [Metformin HCl ER] 1,000 mg PO BID 10/15/19 Metoprolol Tartrate 100 mg PO BID* 10/15/19 Amlodipine [Norvasc*] 10 mg PO BREAKFAST 11/26/20 Losartan Potassium 100 mg PO DAILY 11/26/20 Isosorbide Mononitrate [Isosorbide Mononitrate ER] 30 mg PO DAILY #30 tab 02/15/22 Diet: ADA Activity: Ad jennifer Followup: Felipe Sinha MD [Primary Care Provider] - 1-2 Weeks Jose Maria Adair MD [ACTIVE - CAN ADMIT] - 1-2 Weeks (For arrangement for outpatient stress test.)
--- NOTE | 2022-05-13 16:20 | CON ---
Date of Consultation: 05/13/2022 Reason For Consultation: Chest pain. History Of Present Illness: This is a 57-year-old male, well known to me. Has history of coronary a rtery disease, status post PCI done by myself recently and he comes in with chest pain, was at rest, left-sided, no radiation, has no exertional chest pain. Chest pain is completely resolved and his tr oponin has been negative. Past Medical History: Coronary artery disease, dyslipidemia, hypertension, diabetes. Past Surgical History: Coronary artery bypass surgery and cardiac stent placement. Medications: Refer to reconciliation sheet for detailed list. Allergies: NO KNOWN DRUG ALLERGIES. Family History: No premature coronary artery disease or cancer. Social History: Does not smoke or drink. Does not use any drugs. Review of Systems: All systems reviewed and they were negative except what mentioned in HPI. Physical Examination: Vital Signs: Reviewed. Head and Neck: Pupils are equal, reactive to light. Intact eye movements. No JVD. No cervical lym phadenopathy. Neck is supple. Thyroid is not enlarged. Lungs: Clear to auscultation bilaterally. No rhonchi, wheezing, or crackles. No accessory muscle u se. Heart: Regular rate and rhythm. No extra sounds. Abdomen: Soft, nontender. Bowel sounds positive. No organomegaly. No masses or hernia. No rigidi ty or rebound. Extremities: No clubbing or cyanosis. Intact pulses. Skin: No rash. Neurologic: Alert, awake, oriented x3. No acute focal deficits appreciated. Investigations: Labs reviewed. Assessment And Recommendations: Chest pain, atypical. Negative cardiac enzymes. The patient can be released. Follow up as an outpatient. If he continues to have chest pain, then we will plan for st ress test as an outpatient. SR/MODL Voice ID: [id number] Report ID: [id number]
[2022-05-13 16:21] VITALS: O2SAT 97
--- NOTE | 2022-05-13 17:23 | EKG ---
Test Date: 2022-05-12 Test Time: 17:38:25 Cuprous Chloride Helper: COURTNEY MEASUREMENT RESULTS: Intervals: Rate: 88 NC: 154 QRSD: 104 QT: 372 QTc: 450 [place]: P: 39 NC: 154 QRS: -70 T: 52 INTERPRETIVE STATEMENTS: Normal sinus rhythm Left anterior fascicular block Nonspecific T wave abnormality Abnormal ECG Compared to ECG 02/14/2022 21:58:15 T-wave abnormality now present Myocardial infarct finding no longer present Electronically Signed On 05-13-22 17:20:43 CDT by Jose Maria Adair
[2022-05-13 17:56] VITALS: BP 176/95; TEMP 97
== END 2022-05-13 16:53 | disposition home or self-care (01) ==
LOC: ER 16:58 → ERHOLD 20:44 → 2ND 22:31
PROVIDERS: ADMIT Internal Medicine; ATTEND Internal Medicine
DX: R07.9 Chest pain, unspecified (principal); I25.10 Atherosclerotic heart disease of native coronary artery without angina pectoris; E11.65 Type 2 diabetes mellitus with hyperglycemia; I10 Essential (primary) hypertension; E78.5 Hyperlipidemia, unspecified; Z95.1 Presence of aortocoronary bypass graft; Z95.5 Presence of coronary angioplasty implant and graft; Z79.4 Long term (current) use of insulin; Z20.822 Contact with and (suspected) exposure to COVID-19
CPT/HCPCS: 36415; 71045; 71275; 80048; 80061; 81001; 82947; 83036; 83735; 84100; 84439; 84443; 84484; 85025; 87811; 93005; 94760; G0378; J1650; J1815; J2270; J2405; J7030; Q9967

== ENCOUNTER 2022-07-04 15:44 | Observation (INO) | payer SELFPAY ==
[2022-07-04] MEDS ORDERED: MORPHINE 4 MG/ML SYR ONE (16:19)
[2022-07-04] MEDS ORDERED: ONDANSETRON 4 MG/2 ML VIAL ONE (16:19)
--- OUTSIDE RECORDS SUMMARY | 2022-07-04 16:29 | XMS REPORT | Continuity of Care Document ---
:1965 Author Organization [facility] t Address [address] [place]. [address] [place] [address] Care Team Providers Name Role Phone ISSAC CORRALES Attending Clinician Unavailable Yolis Marquez MD Attending Clinician Derrick Laureano MD Attending Clinician [phone] Issac Corrales MD Attending Clinician YOLIS MARQUEZ Attending Clinician Unavailable DERRICK LAUREANO Admitting Clinician Unavailable Problems Condition Condition Condition Status Onset Resolution Last Treating Co mments Source Name Details Category Date Date Treatment Clinician Date Acute Acute Disease Recurre [facility] exacerb[facility] exacerbati nce [address] on of CHF on of CHF 00:00: [place] (congestiv (congestiv 00 Ce nter e heart e heart failure) failure) Allergies, Adverse Reactions, Alerts Allergy Allergy Status Severity Reaction(s) Onset Inactive Treating Comm ents Source Name Type Date Date Clinician NO KNOWN Allergy Active [facility] Social History Social Habit Start Date Stop Date Quantity Comments Source History SDOH [facility] Non-Med Medical Center History SDOH [employer] Housing Unable to Medical Center Pay Exposure to 2022-05-30 2022-06-09 Not sure [facility] SARS-CoV-2 (event) 00:00:00 09:35:00 Medica l Center History SDOH 2022-06-09 2022-06-[address] [facility] Housing Places 00:00:00 00:00:00 Medical Ce nter Lived History [facility] 2022-06-09 2022-06-[address] [facility] Housing Homeless 00:00:00 00:00:00 Medical Center Last Year Tobacco use and 2022-06-09 2022-06-[address] [facility] exposure 00:00:00 00:00:00 non-user Medical Center Alcohol intake 2022-06-09 2022-06-[address] [facility] 00:[facility] 00:[facility]:00 non-drinker Medical Cente r (finding) History [facility] 2022-06-09 2022-06-[address] [facility] Transport Med 00:00:00 00:00:[address] Sex Assigned At [address] [facility] 00:00:00 00:00:00 Medical Center Smoking Status Start Date Stop Date Source Never smoked tobacco [facility] Medications Ordered Filled Start Stop Current Ordering Indication Dosage Frequency Signature Comments Components Source Medication Medication Date Date Medication? Clinician (SIG) Name Name furosemide 2023- Yes 40mg QD Take [address] [facility] [address] (LASIX) 40 4-20 04-19 tablet (40 [address] MG tablet 00:00: 23:59 mg total) Me dical 00 :00 by mouth Center in the morning. losartan Yes hypertensio 100mg QD Take [address] [facility] (COZAAR) 4-19 n tablet Lukes 100 MG 13:17: (100 mg Medical tablet 27 total) by Center mouth every morning. metFORMIN Yes type 2 1000mg Take [address] (GLUCOPHAGE 4-19 diabetes tablets L ukes ) 500 MG 13:17: mellitus (1,000 mg Medical tablet 27 total) by Center mouth 2 (two) times daily with breakfast and dinner. clopidogreL Yes myocardial 75mg QD Take [address] (PLAVIX) 75 4-19 reinfarctio tablet (75 [facility]ukes mg tablet 13:17: n mg total) Med ical 27 prevention by mouth Cente r nightly. carisoprodo Yes muscle 350mg Take [address] (SOMA) 4-19 spasm tablet [facility]ukes 350 MG 13:17: (350 mg Medical tablet 27 total) by Center mouth 4 (four) times daily as needed for Muscle spasms. HYDROcodone Yes pain 1{tbl} Take [address] -acetaminop 4-19 tablet by [place] (NORCO 13:17: mouth Medica l 10-325) 27 every 6 Center 10-325 mg (six) per tablet hours as needed for Pain. Max Daily Amount: 4 tablets aspirin 81 Yes myocardial 81mg Take [address] [facility] MG EC -19 reinfarctio tablet (81 L ukes tablet 13:17: n mg total) Medica l 27 prevention by mouth Cente r in the morning. liraglutide Yes type 2 1.8mg QD Inject 0.[address] (VICTOZA) -19 diabetes mLs (1.8 [place] [place] 0.6 mg/0.1 13:17: mellitus mg total) Medical mL (18 mg/3 27 subcutaneo Ce nter mL) syringe usly in the morning. atorvastati Yes mixed 40mg Take [address] [facility] n (LIPITOR) -19 hyperlipide tablet (40 [facility]ukes 40 MG 13:17: carlos mg total) Medical tablet 27 by mouth Center in the morning. amLODIPine Yes 10mg QD Take 1 [facility] (NORVASC) 4-19 tablet (10 Luke s 10 MG 13:17: mg total) Medical tablet 27 by mouth Center every morning. insulin Yes 30U QD Inject 30 [facility] glargine 4-19 Units [facility]ukes (LANTUS, 13:17: subcutaneo Med ical SEMGLEE) 27 usly Center 100 unit/mL nightly injection Use as directed. metoprolol 0 2022- No hypertensio 100mg Q.5D Take [address] tartrate -19 -19 n tablet Lukes (LOPRESSOR) 11:35: 00:00 (100 mg Me dical 100 MG 39 :00 total) by Center tablet mouth in the morning and 1 tablet (100 mg total) before bedtime. carvediloL 0 2023- Yes 25mg Take [address] [facility] (COREG) 25 -10 06-18 tablet (25 [place]a kes MG tablet 00:00: 23:59 mg total) Me dical 00 :00 by mouth 2 Center (two) times daily with breakfast and dinner. Vital Signs Vital Name Observation Time Observation Value Comments Source HEIGHT 2022-06-09 06:19:00 165.1 cm WEIGHT 2022-06-09 06:19:00 86.183 kg HEIGHT 2022-06-09 06:19:00 165.1 cm WEIGHT 2022-06-09 06:19:00 86.183 kg HEIGHT 2022-06-09 06:19:00 165.1 cm WEIGHT 2022-06-09 06:19:00 86.183 kg Systolic blood 2022-06-10 11:20:00 116 mm[Hg] [facility] Diastolic blood 2022-06-10 11:20:00 80 mm[Hg] [facility] Heart rate 2022-06-10 11:20:00 80 /min [facility] Body temperature 2022-06-10 11:20:00 36.11 [facility] Respiratory rate 2022-06-10 11:20:00 18 /min [facility] Oxygen saturation in 2022-06-10 11:20:00 99 /min [facility] Arterial blood by Medical Ce nter Pulse oximetry Body height 2022-06-09 06:19:00 165.1 cm [facility] Body weight 2022-06-09 06:19:00 86.183 kg [facility] BMI 2022-06-09 06:19:00 31.62 kg/m2 [facility] Procedures Procedure Date / Time Performed Performing Clinician Eddi e POCT-GLUCOSE METER 2022-06-10 11:04:00 Issac Corrales [facility] 2D ECHO W/ DOPPLER 2022-06-10 10:41:[address] [facility] [facility] (CW/PW/COLOR) [facility] POCT-GLUCOSE METER 2022-06-10 06:08:00 Derrick Laureano [facility] BASIC METABOLIC PANEL 2022-06-10 04:38:00 Derrick Laureano [facility] CBC W/PLT COUNT & AUTO 2022-06-10 04:38:00 Derrick Laureano i [facility] MAGNESIUM 2022-06-10 04:38:[address] [facility] CBC W/PLT COUNT & AUTO 2022-06-10 04:38:00 Derrick Laureano i [facility] POCT-GLUCOSE METER 2022-06-09 21:02:00 Derrick Laureano [facility] POCT-GLUCOSE METER 2022-06-09 16:07:00 Derrick Laureano [facility] POCT-GLUCOSE METER 2022-06-09 11:45:00 Derrick Laureano [facility] HEMOGLOBIN A1C 2022-06-09 09:33:[address] [facility] BASIC METABOLIC PANEL 2022-06-09 09:33:00 Derrick Laureano [facility] CBC W/PLT COUNT & AUTO 2022-06-09 09:33:00 Derrick Laureano i [facility] MAGNESIUM 2022-06-09 09:33:00 [facility] 2022-06-09 09:33:00 [facility]ID [facility] 2022-06-09 09:33[facility]00 [facility] NATRI[facility]TIC 2022-06-09 09:33:00 Derrick Laureano [facility] (BNP) [facility] CBC W/PLT COUNT & AUTO 2022-06-09 09:33:00 Derrick Laureano i [facility] POCT-GLUCOSE METER 2022-06-09 06:00:00 Yolis Marquez [facility] Plan of Care Planned Activity Planned Date Details Comments Source Future Scheduled 2025-06-09 Lipid panel (procedure) [facility] Test 00:00:00 [code = 63105287] Medical Ce nter Future Scheduled 2023-06-[address] [facility] Test 00:00:00 Counseling and Medical Cente r Screening (12+) [code = Tobacco Cessation Counseling and Screening (12+)] Future Scheduled 2022-10-[address] [facility] Test 00:00:00 (Season Ended) [code = Medic al Center INFLUENZA VACCINE (Season Ended)] Future Scheduled 2022-02-[address] [facility] Test 00:00:00 (12+) [code = Medical Center DEPRESSION SCREENING (12+)] Future Scheduled 2013 SHINGLES VACCINES ([address] [facility] Test 00:00:00 2) [code = SHINGLES Medical Center VACCINES (1 of 2)] Future Scheduled 1982 DTAP/TDAP/TD VACCINES [facility] Test 00:00:00 (1 - Tdap) [code = Medical C enter DTAP/TDAP/TD VACCINES (1 - Tdap)] Future Scheduled 1981 HEPATITIS C SCREENING [facility] Test 00:00:00 [code = HEPATITIS C Medical Center SCREENING] Future Scheduled 1965 COVID-19 VACCINE (#1) [facility] Test 00:00:00 [code = COVID-[address] VACCINE (#1)] Future Scheduled 1963 CT Colonography (combo) [facility] Test 00:00:00 [code = CT Colonography [facility] (combo)] Future Scheduled 1963 Screening for malignant [facility] Test 00:00:00 neoplasm of colon Medical Ce nter (procedure) [code = 361175426] Future Scheduled 1963 Screening for malignant [facility] Test 00:00:00 neoplasm of colon Medical Ce nter (procedure) [code = 801953981] Future Scheduled 1963 Screening for malignant [facility] Test 00:00:00 neoplasm of colon Medical Ce nter (procedure) [code = 126030094] Future Scheduled 1963 Screening for malignant [facility] Test 00:00:00 neoplasm of colon Medical Ce nter (procedure) [code = 480221904] Future Scheduled 1965 Sigmoidoscopy [code = [facility] Test 00:00:00 Sigmoidoscopy] Medical Cente r Encounters Start End Encounter Admission Attending Care Care Encounter Source Date/Time Date/Time Type Type Clinicians Facility Department ID 2022-06-09 2022-06-10 Inpatient ER CORRALES, [facility] Cardiology [id number] [facility] 05:46:00 13:08:00 ISSAC 2022-06-09 2022-06-10 [facility] Yolis Marquez [facility] [id number] [facility] St 05:46:00 13:08:00 Encounter Derrick Laureano [facility] 2022-06-09 2022-06-09 [facility] [id number] [facility] 00:00:00 00:00:00 [facility] Results Test Description Test Time Test Comments Results Result [facility] e Comments 2D Echo 2022-06-10 Ejection [facility] W/Doppler(CW/PW/C 11:17:34 [facility] ECHO Medical or) HEARTLAB [facility] CPA POC-Glucose meter 2022-06-10 11:15:49 Test Item Value Reference Range Interpretation Comme nts POC-Glucose Meter (test code = 130 mg/dL 70-110 H : TESTED AT [facility] [address]) [facility] [address]: Manager Business Operations/Techni juan ID = [id number] for Rachel Ron e Lab Interpretation (test code = Abnormal 18924-6) [facility] [id number] 11:15:49 Test Item Value Reference Range Interpretation Comments POC-GLUCOSE METER 130 mg/dL 70-110 H : TESTED A T [facility] [address] ([address]) (test code [address] [facility], = 1538) [facility] [address]: Manager Business Operations/Techni juan ID = [id number] for Martha Bright POCT-GLUCOSE [id number] 06:19:33 Test Item Value Reference Range Interpretation Comments POC-GLUCOSE METER 302 mg/dL 70-110 H : Notified RN/MD: TESTED (BEAKER) (test code AT [facility] [address] = [address]) [facility] [address]: Manager Business Operations/Techni juan ID = [id number] for Wallace Nicole [id number] 06:03:09 Test Item Value Reference Range Interpretation Comments MAGNESIUM (BEAKER) (test code = 1.6 mg/dL 1.5-3.0 627) Manager Business Operations ID - [id number] ID - [id number] ID - [id number] ID - [id number] BASIC METABOLIC [id number] 06:01:50 Test Item Value Reference Range Interpretation Comments SODIUM (BEAKER) 134 meq/L 135-148 L (test code = 381) POTASSIUM 4.0 meq/L 3.6-5.5 (BEAKER) (test code = 379) CHLORIDE (BEAKER) 101 meq/L 98-106 (test code = 382) CO2 (BEAKER) 22 meq/L 20-29 (test code = 355) BLOOD UREA 25 mg/dL 10-26 NITROGEN (BEAKER) (test code = 354) CREATININE 1.41 mg/dL 0.50-1.20 H (BEAKER) (test code = 358) GLUCOSE RANDOM 336 mg/dL 70-110 H (BEAKER) (test code = 652) CALCIUM (BEAKER) 8.5 mg/dL 8.5-10.5 (test code = 697) EGFR (BEAKER) 58 Interpretatio n of eGFR (test code = mL/min/1.73 values Stage De scription 1092) sq m Result G1 Maranda l or high >=90 G2 Mildly decreased 60-89 G3a Mildl y to moderately 45-5 9 G3b Moderately to s everely 30-44 G4 Severl y decreased 15-29 G5 Kidney failure <15Reported eGF R is based on the CKD-EPI 1 equation that d oes not use a race coefficientEsti mated GFR is not as accur ate as Creatinine Yasmine ngo in predicting glom erular filtration rate . Estimated GFR is not appl icable for dialysis patien ts Manager Business Operations ID - [id number] ID - [id number] ID - [id number] ID - [id number] ID - [id number] ID - [id number] ID - [id number] ID - [id number] ID - [id number] W/PLT COUNT & AUTO [id number] 05:34:17 Test Item Value Reference Range Interpretation Comments WHITE BLOOD CELL COUNT (BEAKER) 5.2 K/ L 4.0-10.0 (test code = 775) RED BLOOD CELL COUNT (BEAKER) 4.29 M/ L 4.20-5.80 (test code = 761) HEMOGLOBIN (BEAKER) (test code = 13.3 GM/DL 13.0-16.8 410) HEMATOCRIT (BEAKER) (test code = 38.1 % 36.0-50.0 411) MEAN CORPUSCULAR VOLUME (BEAKER) 89 fL 82-99 (test code = 753) MEAN CORPUSCULAR HEMOGLOBIN 31.0 pg 27.0-33.0 (BEAKER) (test code = 751) MEAN CORPUSCULAR HEMOGLOBIN CONC 34.9 GM/DL 32.0-36.0 (BEAKER) (test code = 752) RED CELL DISTRIBUTION WIDTH 12.1 % 12.0-15.0 (BEAKER) (test code = 412) PLATELET COUNT (BEAKER) (test 182 K/CU MM 150-430 code = 756) MEAN PLATELET VOLUME (BEAKER) 9.6 fL 6.0-11.5 (test code = 754) NUCLEATED RED BLOOD CELLS 0 /100 WBC 0-0 (BEAKER) (test code = 413) NEUTROPHILS RELATIVE PERCENT 54 % (BEAKER) (test code = 429) LYMPHOCYTES RELATIVE PERCENT 32 % (BEAKER) (test code = 430) MONOCYTES RELATIVE PERCENT 10 % (BEAKER) (test code = 431) EOSINOPHILS RELATIVE PERCENT 3 % (BEAKER) (test code = 432) BASOPHILS RELATIVE PERCENT 1 % (BEAKER) (test code = 437) NEUTROPHILS ABSOLUTE COUNT 2.79 K/ L 1.80-8.00 (BEAKER) (test code = 670) LYMPHOCYTES ABSOLUTE COUNT 1.67 K/ L 1.48-4.50 (BEAKER) (test code = 414) MONOCYTES ABSOLUTE COUNT (BEAKER) 0.52 K/ L 0.00-1.30 (test code = 415) EOSINOPHILS ABSOLUTE COUNT 0.13 K/ L 0.00-0.50 (BEAKER) (test code = 416) BASOPHILS ABSOLUTE COUNT (BEAKER) 0.03 K/ L 0.00-0.20 (test code = 417) IMMATURE GRANULOCYTES-RELATIVE 0.40 % 0.00-0.00 H PERCENT (BEAKER) (test code = 2801) POCT-GLUCOSE [id number] 21:14:04 Test Item Value Reference Range Interpretation Comments POC-GLUCOSE METER 233 mg/dL 70-110 H : TESTED A T [facility] [address] (BEAKER) (test code [address], = 1538) [place] [address]: Manager Business Operations/Techni juan ID = [id number] for Ann Marie Winkler POCT-GLUCOSE [id number] 16:19:49 Test Item Value Reference Range Interpretation Comments POC-GLUCOSE METER 254 mg/dL 70-110 H : TESTED A T [facility] [address] (BEAKER) (test code [address], = 1538) [place] [address]: Manager Business Operations/Techni juan ID = [id number] for Christy Valencia POCT-GLUCOSE [id number] 11:57:18 Test Item Value Reference Range Interpretation Comments POC-GLUCOSE METER 253 mg/dL 70-110 H : TESTED A T [facility] [address] (BEAKER) (test code [address], = 1538) [place] [id number]: Manager Business Operations/Techni juan ID = [id number] for Jennifer Brown TROPONIN [id number] 10:29:04 Test Item Value Reference Range Interpretation Comments TROPONIN I (BEAKER) (test code = 397) < ng/mL 0.00-0.15 Troponin I (TnI) levels must be interpreted in the context of the presenting symptoms and the clinical findings. Elevated TnI levels indicate myocardial damage, but are not specific for ischemic heart disease. Elevated TnI levels are seen in patients with other cardiac conditions (including myocarditis and congestive heart failure), and slight TnI elevations occur in patients with other conditions, including sepsis, renal failure, acidosis, acute neurological disease, and persistent tachyarrhythmia.Manager Business Operations ID - [id number] NATRIURETIC FACTOR (BNP)2022-06-09 10:09:46 Test Item Value Reference Range Interpretation Comments B-TYPE NATRIURETIC PEPTIDE (BEAKER) 145 pg/mL 0-100 H (test code = 700) Manager Business Operations ID - [id number] 10:05:21 Test Item Value Reference Range Interpretation Comments TRIGLYCERIDES (BEAKER) 122 mg/dL Speci men slightly (test code = 540) hemolyzed CHOLESTEROL (BEAKER) 140 mg/dL Specime n slightly (test code = 631) hemolyzed HDL CHOLESTEROL (BEAKER) 47 mg/dL (test code = 976) LDL CHOLESTEROL 69 mg/dL CALCULATED (BEAKER) (test code = 633) Triglyceride Reference Range: Low Risk <150 Borderline 150-199 High Risk 200- 499 Very High Risk >=500Cholesterol Reference Range: Low Risk <200 Borderline 200-239 High Risk >240HDL Cholesterol Reference Range: Low Risk >=60 High Risk <40LDL Cholesterol Reference Range: Optimal <100 Near Optimal 100-129 Borderline 130-159 High 160-189 Very High >=190 Manager Business Operations ID - [id number] ID - [id number] ID - [id number] 10:05:21 Test Item Value Reference Range Interpretation Comments MAGNESIUM (BEAKER) 1.5 mg/dL 1.5-3.0 Specimen slightly (test code = 627) hemolyzed Manager Business Operations ID - [id number] ID - [id number] ID - [id number] ID - [id number] METABOLIC [id number] 10:04:06 Test Item Value Reference Range Interpretation Comments SODIUM (BEAKER) 136 meq/L 135-148 (test code = 381) POTASSIUM 4.5 meq/L 3.6-5.5 Specimen slight ly (BEAKER) (test hemolyzed code = 379) CHLORIDE (BEAKER) 103 meq/L 98-106 (test code = 382) CO2 (BEAKER) 22 meq/L 20-29 (test code = 355) BLOOD UREA 11 mg/dL 10-26 NITROGEN (BEAKER) (test code = 354) CREATININE 0.86 mg/dL 0.50-1.20 Specimen slight ly (BEAKER) (test hemolyzed code = 358) GLUCOSE RANDOM 145 mg/dL 70-110 H (BEAKER) (test code = 652) CALCIUM (BEAKER) 9.5 mg/dL 8.5-10.5 (test code = 697) EGFR (BEAKER) 101 Interpretatio n of eGFR (test code = mL/min/1.73 values Stage De scription 1092) sq m Result G1 Maranda l or high >=90 G2 Mildly decreased 60-89 G3a Mildl y to moderately 45-5 9 G3b Moderately to s everely 30-44 G4 Severl y decreased 15-29 G5 Kidne y failure <15Reported eGF R is based on the CKD-EPI 2020 equation that d oes not use a race coefficientEsti mated GFR is not as accur ate as Creatinine Yasmine huber in predicting glom erular filtration rate . Estimated GFR is not appl icable for dialysis patien ts Manager Business Operations ID - [id number] ID - [id number] ID - [id number] ID - [id number] ID - [id number] ID - [id number] ID - [id number] ID - [id number] ID - [id number] 09:57:19 Test Item Value Reference Range Interpretation Comments HEMOGLOBIN A1C (BEAKER) (test code = 8.4 % 4.3-6.1 H 368) Manager Business Operations ID - [id number] W/PLT COUNT & AUTO [id number] 09:47:46 Test Item Value Reference Range Interpretation Comments WHITE BLOOD CELL COUNT (BEAKER) 5.9 K/ L 4.0-10.0 (test code = 775) RED BLOOD CELL COUNT (BEAKER) 4.91 M/ L 4.20-5.80 (test code = 761) HEMOGLOBIN (BEAKER) (test code = 15.3 GM/DL 13.0-16.8 410) HEMATOCRIT (BEAKER) (test code = 43.1 % 36.0-50.0 411) MEAN CORPUSCULAR VOLUME (BEAKER) 88 fL 82-99 (test code = 753) MEAN CORPUSCULAR HEMOGLOBIN 31.2 pg 27.0-33.0 (BEAKER) (test code = 751) MEAN CORPUSCULAR HEMOGLOBIN CONC 35.5 GM/DL 32.0-36.0 (BEAKER) (test code = 752) RED CELL DISTRIBUTION WIDTH 12.1 % 12.0-15.0 (BEAKER) (test code = 412) PLATELET COUNT (BEAKER) (test 206 K/CU MM 150-430 code = 756) MEAN PLATELET VOLUME (BEAKER) 9.4 fL 6.0-11.5 (test code = 754) NUCLEATED RED BLOOD CELLS 0 /100 WBC 0-0 (BEAKER) (test code = 413) NEUTROPHILS RELATIVE PERCENT 69 % (BEAKER) (test code = 429) LYMPHOCYTES RELATIVE PERCENT 22 % (BEAKER) (test code = 430) MONOCYTES RELATIVE PERCENT 7 % (BEAKER) (test code = 431) EOSINOPHILS RELATIVE PERCENT 2 % (BEAKER) (test code = 432) BASOPHILS RELATIVE PERCENT 0 % (BEAKER) (test code = 437) NEUTROPHILS ABSOLUTE COUNT 4.10 K/ L 1.80-8.00 (BEAKER) (test code = 670) LYMPHOCYTES ABSOLUTE COUNT 1.28 K/ L 1.48-4.50 L (BEAKER) (test code = 414) MONOCYTES ABSOLUTE COUNT (BEAKER) 0.41 K/ L 0.00-1.30 (test code = 415) EOSINOPHILS ABSOLUTE COUNT 0.10 K/ L 0.00-0.50 (BEAKER) (test code = 416) BASOPHILS ABSOLUTE COUNT (BEAKER) 0.02 K/ L 0.00-0.20 (test code = 417) IMMATURE GRANULOCYTES-RELATIVE 0.20 % 0.00-0.00 H PERCENT (BEAKER) (test code = 2801) POCT-GLUCOSE [id number] 06:11:39 Test Item Value Reference Range Interpretation Comments POC-GLUCOSE METER 157 mg/dL 70-110 H : TESTED A T [facility] [address] (BEAKER) (test code [address], = 1538) [facility] [phone]: Manager Business Operations/Techni juan ID = [id number] for Anastacia Brock
[2022-07-04 16:38] LABS: MPV 7.3 fL (7.6-11.3)
[2022-07-04 16:44] LABS: Absolute Lymphocytes (CBC) 1.2 K/uL (0.7-4.9); Hematocrit 41.4 % (39.6-49.0); Lymphocytes % 24.6 % (15.3-44.8); MCV 89.2 fL (80-100); Protime INR 1.01; RBC Red Blood Cell Count 4.64 M/uL (4.33-5.43)
--- NOTE | 2022-07-04 16:45 | RAD REPORT ---
EXAM DESCRIPTION: RAD - Chest Single View - 07/04/2022 4:27 pm CLINICAL HISTORY: CHEST PAIN COMPARISON: Chest Single View dated 06/08/2022; Chest Single View dated 05/12/2022; Chest Single View dated 02/14/2022; Chest Single View dated 01/18/2022 FINDINGS: Lines: None. Lungs: No evidence of edema or pneumonia. Pleural: No significant pleural effusions or pneumothorax. Cardiac: The heart size is within normal limits. Mediastinum: Within normal limits. Bones: No acute fractures. Sternotomy. Other: None IMPRESSION: No acute cardiopulmonary disease.
[2022-07-04 16:57] LABS: Albumin 3.8 g/dL (3.4-5.0); Bilirubin Direct 0.1 mg/dL (0-0.2); Bilirubin Indirect, Calculated 0.2 (0.2-0.8); Bilirubin Total 0.3 mg/dL (0.2-1.0); Magnesium 1.6 mg/dL (1.6-2.4); Potassium 4.2 mEq/L (3.5-5.1); Protein, Total 7.9 g/dL (6.4-8.2); Troponin High Sensitivity 9.5 pg/mL (<58.9)
--- NOTE | 2022-07-04 18:18 | EDPHYS ---
Physician Documentation [facility] Name: Jorge Schultz Jr Age: 57 yrs Sex: Male : 1965 Arrival Date: 07/04/2022 Time: 15:44 Bed 8 Private MD: ED Physician Roman Miles HPI: 07/04 16:10 This 57 yrs old Male presents to ER via Unassigned with complaints of Chest cp Pain, Shortness Of Breath. 16:10 The patient or guardian reports chest pain that is located primarily in the anterior cp chest wall, left. 16:10 Onset: this morning. The pain radiates to the left shoulder. Associated signs and cp symptoms: Pertinent negatives: abdominal pain, cough, diaphoresis, headache, lower extremity pain, lower extremity swelling, palpitations, shortness of breath, syncope. The chest pain is described as constant. Duration: The patient or guardian reports a single episode, that is still ongoing. Severity of pain: in the emergency department the pain is unchanged despite home interventions. Historical: - Allergies: 16:14 No Known Allergies; aa5 - PMHx: 16:14 Anxiety; CAD; GERD; Glaucoma; High Cholesterol; Hypertension; IDDM; Myocardial aa5 infarction; - PSHx: 16:14 CABG; cardiac stents x 2; aa5 - Immunization history:: Adult Immunizations up to date. - Social history:: Smoking status: Patient denies any tobacco usage or history of. Patient/guardian denies using alcohol. ROS: 16:15 Constitutional: Negative for body aches, chills, fever, poor PO intake. cp 16:15 Cardiovascular: Positive for chest pain, Negative for edema, palpitations. cp 16:15 Eyes: Negative for injury, pain, redness, and discharge. cp 16:15 ENT: Negative for drainage from ear(s), ear pain, sore throat, difficulty swallowing, difficulty handling secretions. 16:15 Respiratory: Negative for cough, shortness of breath, wheezing. 16:15 Abdomen/GI: Negative for abdominal pain, vomiting, diarrhea, constipation. 16:15 Back: Negative for injury or acute deformity, decreased range of motion. 16:15 Skin: Negative for rash. 16:15 Neuro: Negative for altered mental status, dizziness, headache, numbness, syncope, weakness. 16:15 All other systems are negative. Exam: 16:20 Constitutional: The patient appears in no acute distress, alert, awake, cp non-diaphoretic, non-toxic, well developed, well nourished, uncomfortable. 16:20 Head/Face: Normocephalic, atraumatic. cp 16:20 Eyes: Periorbital structures: appear normal, Conjunctiva: normal, no exudate, no injection, Sclera: no appreciated abnormality, Lids and lashes: appear normal, bilaterally. 16:20 ENT: External ear(s): are unremarkable, Nose: is normal, Mouth: Lips: moist, Oral mucosa: pink and intact, moist, Posterior pharynx: is normal, airway is patent, no erythema, no exudate. 16:20 Neck: ROM/movement: is normal, is supple, without pain, no range of motions limitations, no meningismus, no nuchal rigidity. 16:20 Chest/axilla: Inspection: normal. 16:20 Cardiovascular: Rate: normal, Rhythm: regular. 16:20 Respiratory: the patient does not display signs of respiratory distress, Respirations: normal, no use of accessory muscles, no retractions, labored breathing, is not present, Breath sounds: are clear throughout, no decreased breath sounds, no stridor, no wheezing. 16:20 Abdomen/GI: Inspection: abdomen appears normal, Palpation: abdomen is soft and non-tender, in all quadrants. 16:20 Back: pain, is absent, ROM is normal. 16:20 Neuro: Orientation: to person, place \T\ time. Mentation: is normal, Cerebellar function: is grossly normal, Motor: moves all fours, strength is normal, Sensation: is normal. 16:23 ECG was reviewed by the Attending Physician. cp Vital Signs: 15:54 BP 133 / 97; Pulse 76; Resp 20 S; Temp 98(TE); Pulse Ox 100% on R/A; aa5 16:33 BP 124 / 91; Pulse 77; Resp 18; Pulse Ox 98% on R/A; Weight 85.73 kg; Height 5 ft. 7 ld1 in. ; Pain 8/10; 17:31 BP 128 / 95; Pulse 68; Resp 18; Pulse Ox 100% on R/A; ld1 18:49 BP 128 / 97; Pulse 76; Resp 18; Pulse Ox 97% ; ld1 19:21 BP 134 / 95; Pulse 79; Resp 16; Temp 98.2; Pulse Ox 99% on R/A; Pain 7/10; pf1 20:30 BP 126 / 85; Pulse 75; Resp 16; Pulse Ox 99% on R/A; pf1 16:33 Body Mass Index 29.60 (85.73 kg, 170.18 cm) ld1 16:33 Pain Scale: Adult ld1 19:21 Pain Scale: Adult pf1 MDM: 15:54 Patient medically screened. cp 18:15 Data reviewed: vital signs, nurses notes, lab test result(s), EKG, radiologic studies, cp plain films. 18:15 Differential diagnosis: abnormal EKG, acute myocardial infarction, acute pericarditis, cp cholecystitis, Cholelithiasis pancreatitis, pericarditis, pneumonia, pneumothorax, pulmonary embolus, stable angina, thoracic aortic disection, unstable angina. Consideration of Admission/Observation Patient was admitted/placed on observation. Management of patient was discussed with the following: Hospitalist: Reinaldo Childs WEBSITE/BLOG EDITOR will admit after discussion. I considered the following discharge prescriptions or medication management in the emergency department Medications were administered in the Emergency Department. See MAR. Test considered but Not performed: CT: chest. Counseling: I had a detailed discussion with the patient and/or guardian regarding: the historical points, exam findings, and any diagnostic results supporting the discharge/admit diagnosis, lab results, radiology results, the need for further work-up and treatment in the hospital. Response to treatment: the patient's symptoms have mildly improved after treatment, and as a result, I will admit patient. 07/04 16:11 Order name: Basic Metabolic Panel; Complete Time: 17:19 cp 07/04 16:11 Order name: CBC with Diff; Complete Time: 17:19 cp 07/04 16:11 Order name: LFT's; Complete Time: 17:19 cp 07/04 16:11 Order name: Magnesium; Complete Time: 17:19 cp 07/04 16:11 Order name: NT PRO-BNP; Complete Time: 17:19 cp 07/04 16:11 Order name: PT-INR; Complete Time: 17:50 cp 07/04 16:11 Order name: Troponin HS; Complete Time: 17:19 cp 07/04 16:11 Order name: Lipase; Complete Time: 17:19 cp 07/04 17:21 Order name: LAB Add On 07/04 17:30 Order name: D-Dimer; Complete Time: 17:50 EDMS 07/04 16:11 Order name: XRAY Chest (1 view); Complete Time: 17:19 07/04 17:20 Interpretation: Report reviewed. 07/04 16:11 Order name: EKG; Complete Time: 16:11 07/04 16:11 Order name: Cardiac monitoring; Complete Time: 16:33 07/04 16:11 Order name: EKG - Nurse/Tech; Complete Time: 16:11 07/04 16:11 Order name: IV Saline Lock; Complete Time: 16:33 07/04 16:11 Order name: Labs collected and sent; Complete Time: 16:33 07/04 16:11 Order name: O2 Per Protocol; Complete Time: 16:11 07/04 16:11 Order name: O2 Sat Monitoring; Complete Time: 16:11 EC:23 Rate is 73 beats/min. Rhythm is regular. IA interval is normal. QRS interval is normal. cp QT interval is normal. Interpreted by me. Reviewed by me. Administered Medications: 16:33 Drug: morphine IVP or IV 4 mg Route: IVP; Infused Over: 4 mins; Site: right forearm; ld1 19:20 Follow up: Response: No adverse reaction; Marked relief of symptoms; Pain is decreased; pf1 RASS: Alert and Calm (0) 16:33 Drug: Ondansetron IVP 4 mg Route: IVP; Site: right forearm; ld1 19:20 Follow up: Response: No adverse reaction; Marked relief of symptoms pf1 Disposition Summary: 07/04/22 18:18 Hospitalization Ordered Hospitalization Status: Observation cp Provider: Miguel Bragg cp Location: Telemetry/MedSurg (observation) cp Condition: Stable cp Problem: new cp Symptoms: have improved cp Bed/Room Type: Standard Room Assignment: 214(07/04/22 19:34) cg Diagnosis - Chest pain, unspecified cp Forms: - Medication Reconciliation Form cp - SBAR form cp Signatures: Dispatcher [employer] EDMS Karena Robertson RN RN aa5 Reinaldo Childs, TERMINAL OPERATIONS SUPERVISOR-C TERMINAL OPERATIONS SUPERVISOR-Cla1 Maury Lowery PA PA cp Garcia, Cindy, RN RN cg Maria G Billy RN RN ld1 Mirna jensen RN pf1 Corrections: (The following items were deleted from the chart) 19:34 18:18 elizabeth cg
--- NOTE | 2022-07-04 18:18 | ER ---
Nurse's Notes [facility] Name: Jorge Schultz Jr Age: 57 yrs Sex: Male : 1965 Arrival Date: 07/04/2022 Time: 15:44 Bed 8 Private MD: Diagnosis: Chest pain, unspecified Presentation: 07/04 15:54 Chief complaint: Patient states: left sided chest pain that began today, pt also aa5 reports SOB. 15:54 Coronavirus screen: At this time, the client does not indicate any symptoms associated aa5 with coronavirus-19. Ebola Screen: Patient denies travel to an Ebola-affected area in the 21 days before illness onset. Initial Sepsis Screen: Does the patient meet any 2 criteria? No. Patient's initial sepsis screen is negative. Does the patient have a suspected source of infection? No. Patient's initial sepsis screen is negative. Risk Assessment: Do you want to hurt yourself or someone else? Patient reports no desire to harm self or others. Onset of symptoms was July 04, 2022. 15:54 Acuity: AALIYAH 2 aa5 15:54 Method Of Arrival: Ambulatory aa5 Historical: - Allergies: 16:14 No Known Allergies; aa5 - PMHx: 16:14 Anxiety; CAD; GERD; Glaucoma; High Cholesterol; Hypertension; IDDM; Myocardial aa5 infarction; - PSHx: 16:14 CABG; cardiac stents x 2; aa5 - Immunization history:: Adult Immunizations up to date. - Social history:: Smoking status: Patient denies any tobacco usage or history of. Patient/guardian denies using alcohol. Screenin:33 [facility] ED Fall Risk Assessment (Adult) History of falling in the last 3 months, ld1 including since admission No falls in past 3 months (0 pts). Abuse screen: Denies threats or abuse. Denies injuries from another. Nutritional screening: No deficits noted. Tuberculosis screening: No symptoms or risk factors identified. Assessment: 16:33 General: Appears in no apparent distress. comfortable, Behavior is cooperative, ld1 anxious. Pain: Complains of pain in chest Pain does not radiate. Pain currently is 8 out of 10 on a pain scale. Quality of pain is described as throbbing, Pain began 2-3 days ago. Is intermittent. Neuro: Level of Consciousness is awake, alert, obeys commands, Oriented to person, place, time, situation. Cardiovascular: Capillary refill < 3 seconds Patient's skin is warm and dry. Rhythm is sinus rhythm. Respiratory: Airway is patent Respiratory effort is even, unlabored. GI: Abdomen is round non-distended. : No signs and/or symptoms were reported regarding the genitourinary system. EENT: No signs and/or symptoms were reported regarding the EENT system. Derm: No signs and/or symptoms reported regarding the dermatologic system. Musculoskeletal: No signs and/or symptoms reported regarding the musculoskeletal system. 17:31 Reassessment: Patient appears in no apparent distress at this time. No changes from ld1 previously documented assessment. Patient and/or family updated on plan of care and expected duration. Pain level reassessed. 18:49 Reassessment: Patient appears in no apparent distress at this time. No changes from ld1 previously documented assessment. Patient and/or family updated on plan of care and expected duration. Pain level reassessed. 19:19 General: Appears in no apparent distress. comfortable, well groomed, well developed, pf1 Behavior is calm, cooperative, appropriate for age, quiet. Pain: Complains of pain in chest Pain currently is 7 out of 10 on a pain scale. Neuro: No deficits noted. Level of Consciousness is awake, alert, obeys commands, Oriented to person, place, time, situation. Cardiovascular: Capillary refill < 3 seconds Patient's skin is warm and dry. Rhythm is sinus rhythm. Respiratory: Airway is patent Trachea midline Respiratory effort is even, unlabored, Respiratory pattern is regular, symmetrical. GI: No deficits noted. No signs and/or symptoms were reported involving the gastrointestinal system. Abdomen is round non-distended. : No deficits noted. No signs and/or symptoms were reported regarding the genitourinary system. EENT: No deficits noted. No signs and/or symptoms were reported regarding the EENT system. Derm: No deficits noted. No signs and/or symptoms reported regarding the dermatologic system. Musculoskeletal: No signs and/or symptoms reported regarding the musculoskeletal system. 19:47 General: Attempted patient report, nurse to call back. pf1 20:29 Reassessment: Patient appears in no apparent distress at this time. No changes from pf1 previously documented assessment. Patient and/or family updated on plan of care and expected duration. Pain level reassessed. Patient is alert, oriented x 3, equal unlabored respirations, skin warm/dry/pink. Vital Signs: 15:54 BP 133 / 97; Pulse 76; Resp 20 S; Temp 98(TE); Pulse Ox 100% on R/A; aa5 16:33 BP 124 / 91; Pulse 77; Resp 18; Pulse Ox 98% on R/A; Weight 85.73 kg; Height 5 ft. 7 ld1 in. ; Pain 8/10; 17:31 BP 128 / 95; Pulse 68; Resp 18; Pulse Ox 100% on R/A; ld1 18:49 BP 128 / 97; Pulse 76; Resp 18; Pulse Ox 97% ; ld1 19:21 BP 134 / 95; Pulse 79; Resp 16; Temp 98.2; Pulse Ox 99% on R/A; Pain 7/10; pf1 20:30 BP 126 / 85; Pulse 75; Resp 16; Pulse Ox 99% on R/A; pf1 16:33 Body Mass Index 29.60 (85.73 kg, 170.18 cm) ld1 16:33 Pain Scale: Adult ld1 19:21 Pain Scale: Adult pf1 ED Course: 15:47 Patient arrived in ED. ts1 15:48 Maury Lowery PA is PHCP. cp 15:48 Roman Miles MD is Attending Physician. cp 15:54 Arm band placed on Patient placed in an exam room, on a stretcher. aa5 16:08 EKG completed in triage. Results shown to MD. aa5 16:14 Triage completed. aa5 16:29 XRAY Chest (1 view) In Process Unspecified. EDMS 16:33 Patient has correct armband on for positive identification. Placed in gown. Bed in low ld1 position. Call light in reach. Side rails up X2. spectroscopist on. Pulse ox on. NIBP on. Door closed. Noise minimized. Warm blanket given. 16:33 No provider procedures requiring assistance completed. Inserted saline lock: 20 gauge ld1 in right forearm, using aseptic technique. Blood collected. Missed attempt(s): 20 gauge in right upper arm. 16:33 Patient maintains SpO2 saturation greater than 95% on room air. ld1 17:31 Maria G Billy RN is Primary Nurse. ld1 18:16 Miguel Bragg MD is Hospitalizing Provider. cp 20:47 Patient admitted, IV remains in place. pf1 Administered Medications: 16:33 Drug: morphine IVP or IV 4 mg Route: IVP; Infused Over: 4 mins; Site: right forearm; ld1 19:20 Follow up: Response: No adverse reaction; Marked relief of symptoms; Pain is decreased; pf1 RASS: Alert and Calm (0) 16:33 Drug: Ondansetron IVP 4 mg Route: IVP; Site: right forearm; ld1 19:20 Follow up: Response: No adverse reaction; Marked relief of symptoms pf1 Medication: 16:35 VIS not applicable for this client. ld1 Outcome: 18:18 Decision to Hospitalize by Provider. cp 20:33 Admitted to Med/surg room 214, Report called to RITA Peralta pf1 20:46 Admitted to Med/surg accompanied by tech, via wheelchair. pf1 20:46 Condition: stable pf1 20:47 Patient left the ED. pf1 Signatures: Dispatcher [employer] EDMS Karena Robertson RN RN aa5 Maury Lowery PA PA cp Maria G Billy RN RN ld1 Mirna jensen RN RN pf1 Maia Bernstein, CONY PAS ts1
--- NOTE | 2022-07-04 19:16 | P.HP ---
Certification for Inpatient Patient admitted to: Observation With expected LOS: <2 Midnights Patient will require the following post-hospital care: None Practitioner: I am a practitioner with admitting privileges, knowledge of patient current condition, hospital course, and medical plan of care. Services: Services provided to patient in accordance with Admission requirements found in Title 42 Section 412.3 of the Code of Federal Regulations Patient History Date of Service: 07/04/22 Reason for admission: Chest pain History of Present Illness: 57-year-old male with history of severe CAD status post CABG, insulin-dependent diabetes, hypertension, hyperlipidemia presents the emergency department chief complaint of chest pain, he reports that he was resting watching TV when he had onset of chest pain described as pressure like "somebody sitting on my chest". He was evaluated in the emergency department initial high-sensitivity troponin within normal limits 9.5 sodium 127 glucose 196 chest x-ray was unremarkable his last heart catheterization was in December 2021 which showed severe [place] coronary artery disease with patent LAD stent, severe left circumflex and OM1 stenosis likely the culprit for the symptoms and stress test abnormality status post successful PCI to both arteries. Occluded RCA proximally with patent SVG graft to the RCA. Recommendations were to continue aspirin, Plavix, statin. Patient has been compliant with his medications, will admit under observation for ACS rule. Allergies No Known Drug Allergies Allergy (Verified 02/15/22 03:22) Unknown No Known Allergies Allergy (Uncoded 04/17/16 07:21) Unknown Home Medications: Aspirin [Aspirin EC 81 MG] 81 mg PO DAILY 10/15/19 Atorvastatin Calcium [Lipitor*] 40 mg PO BREAKFAST 10/15/19 Carisoprodol [Soma] 350 mg PO TIDP PRN 10/15/19 Clopidogrel Bisulfate [Plavix*] 75 mg PO BEDTIME 10/15/19 Hydrocodone 10/APAP 325 [Thida 10/325*] 1 tab PO QIDP PRN 10/15/19 Insulin Glargine Human [Lantus*] 20 unit SQ BEDTIME 10/15/19 Liraglutide [Victoza 2-Imer] 1.8 mg SQ DAILY 10/15/19 Metformin HCl [Metformin HCl ER] 1,000 mg PO BID 10/15/19 Metoprolol Tartrate 100 mg PO BID* 10/15/19 Amlodipine [Norvasc*] 10 mg PO BREAKFAST 11/26/20 Losartan Potassium 100 mg PO DAILY 11/26/20 Isosorbide Mononitrate [Isosorbide Mononitrate ER] 30 mg PO DAILY #30 tab 02/15/22 - Past Medical/Surgical History Diabetic: Yes -: X3 MIs -: IDDM -: chronic back pain -: cataracts -: glaucoma rt eye -: cellulitis -: staph infection with CABG -: Glaucoma -: Staph infection wound chest -: cardiac cath -: lumbar epidural injection x3 -: CABG (May 29 2014) x 4 vessels -: Cardiac stents x2 01/20/2022 -: Cardiac stents x2 01/20/2022 Psychosocial/ Personal History: Patient lives at home with his . - Family History Mother -: Heart disease, Diabetes Father -: Stroke, Cancer Notes: Multiple CANCER Sister -: Cancer Notes: liver - Social History Alcohol use: No CD- Drugs: No Caffeine use: Yes Review of Systems 10-point ROS is otherwise unremarkable Respiratory: Shortness of Breath Cardiovascular: Chest Pain Physical Examination - Physical Exam General: Alert, In no apparent distress, Oriented x3 HEENT: Atraumatic, PERRLA, Mucous membr. moist/pink, EOMI, Sclerae nonicteric Neck: Supple, 2+ carotid pulse no bruit, No LAD, Without JVD or thyroid abnormality Respiratory: Clear to auscultation bilaterally, Normal air movement Cardiovascular: Regular rate/rhythm, Normal S1 S2 Capillary refill: <2 Seconds Gastrointestinal: Normal bowel sounds, No tenderness Musculoskeletal: No tenderness Integumentary: No rashes Neurological: Normal speech, Normal strength at 5/5 x4 extr, Normal tone, Normal affect - Studies Laboratory Data (last 24 hrs) 07/04/22 16:28: PT 11.1, INR 1.01 07/04/22 16:28: WBC 5.00, Hgb 14.3, Hct 41.4, Plt Count 193 07/04/22 16:28: Sodium 127 L, Potassium 4.2, BUN 25 H, Creatinine 1.17, Glucose 196 H, Magnesium 1.6, Total Bilirubin 0.3, AST 14 L, ALT 20, Alkaline Phosph atase 71, Lipase 59 Assessment and Plan - Plan Assessment: Chest pain rule out ACShistory CAD with previous CABG Diabetes mellitus type 2insulin-dependent with hyperglycemia Hypertension Hyperlipidemia Chronic pain Plan: Chest pain rule out ACShistory CAD with previous CABG Trend troponins, monitor on telemetry, cardiology consult in place. Last heart catheterization December 2019 with 2 stents placed. Patient has been compliant with medications. On medications continued including aspirin, statin, Plavix, carvedilol, losartan, amlodipine. Patient was previously on isosorbide but apparently cannot tolerate the medication due to severe headaches. Appreciate further per from cardiology. Diabetes mellitus type 2insulin-dependent with hyperglycemia ACHS Accu-Chek, sliding scale insulin. Hypertension Hyperlipidemia Chronic pain Home medications continued. DVT PPX: Lovenox Code status: Full Discharge Plan: Home Plan to discharge in: 24 Hours - Advance Directives Does patient have a Living Will: No Does patient have a Durable POA for Healthcare: No - Code Status/Comfort Care Code Status Assessed: Yes (Full code) Critical Care: No Time Spent Managing Pts Care (In Minutes): 55
[2022-07-04 21:05] VITALS: O2SAT 99
[2022-07-04] MEDS ORDERED: ONDANSETRON 4 MG/2 ML VIAL IV PRN (21:43)
[2022-07-04] MEDS: INSULIN -REGULAR HUMAN 50 UNIT/0.5 ML ML SQ SCH (21:43)
[2022-07-04] MEDS ORDERED: HYDROCODONE/APAP 10/325 TAB PO PRN (21:43)
[2022-07-04] MEDS: ATORVASTATIN 40 MG TAB PO SCH (22:17)
[2022-07-04] MEDS: MORPHINE 2 MG/ML SYR IV PRN (22:18)
[2022-07-05 03:20] LABS: Absolute Lymphocytes (CBC) 1.8 K/uL (0.7-4.9); Lymphocytes % 34.4 % (15.3-44.8); MCV 89.2 fL (80-100); MPV 7.3 fL (7.6-11.3); RBC Red Blood Cell Count 4.38 M/uL (4.33-5.43)
[2022-07-05 03:40] LABS: Potassium 3.9 mEq/L (3.5-5.1); Troponin High Sensitivity 11.3 pg/mL (<58.9)
[2022-07-05] MEDS: carvediloL 25 MG TAB PO SCH ×2 (05:24→17:33)
--- NOTE | 2022-07-05 07:05 | P.PN ---
Date of Service: 07/05/22 Subjective: intermittent chest pain remains (same feeling as previous episodes) states he was diagnosed with diastolic CHF last month in [facility] ROS: 10 point ROS as noted above, otherwise negative Physical Exam: GEN: Alert, oriented, NAD HEENT: Normal conjunctiva, sclera anicteric CV: Regular rate and rhythm, no edema Pulm: Nonlabored respirations on room air ABD: Soft, nontender, nondistended Neuro: Normal speech, normal affect vitals reviewed Problem List: Chest pain chronic Diastolic CHF (Grade 1 diastolic dysfunction on echo 06/10/22) history CAD with previous CABG [id number] with hyperglycemia Hypertension Hyperlipidemia Chronic pain Chest pain Diastolic CHF, grade 1; chronic history CAD with previous CABG Last heart cath (12/2019): s/p 2 stents placed. Patient has been compliant with medications. aspirin, statin, Plavix, carvedilol, losartan, amlodipine. Patient was previously on isosorbide but apparently cannot tolerate the medication due to severe headaches. CXR negative Trend troponins - negative x3, telemetry Cardiology consulted echo done at [facility] last month (06/10/22): EF: 55-59%, Grade 1 diastolic dysfunction Diabetes mellitus type 2insulin-dependent with hyperglycemia ACHS Accu-Chek, sliding scale insulin Hypertension Hyperlipidemia Chronic pain Continue home medications VTE: Lovenox Code: Full Dispo: Home ~24hrs pending if needs stress test in AM
[2022-07-05] MEDS: INSULIN -REGULAR HUMAN 50 UNIT/0.5 ML ML SQ SCH ×6 (07:30→21:02)
[2022-07-05] MEDS: MORPHINE 2 MG/ML SYR IV PRN ×3 (08:16→21:03)
[2022-07-05] MEDS: CLOPIDOGREL 75 MG TABLET PO SCH (08:16)
[2022-07-05] MEDS: ASPIRIN EC 81 MG TAB PO SCH (08:19)
[2022-07-05] MEDS: AMLODIPINE 10 MG TAB PO SCH (08:19)
[2022-07-05] MEDS: LOSARTAN POTASSIUM 50 MG TABLET PO SCH (08:20)
[2022-07-05] MEDS: ENOXAPARIN 40 MG/0.4 ML SQ SCH (08:20)
--- NOTE | 2022-07-05 15:06 | CON ---
Date of Consultation: 07/05/2022 Reason For Consultation: Chest pain. History Of Present Illness: A 57-year-old male with history of coronary artery disease, status post CABG followed by multiple stenting, diabetes, dyslipidemia, hypertension, presented with chest pain, left side, pressure-like, not related to exertion, pain on and off and since hospitalization he has b een pain free. Past Medical History: As outlined above in the HPI. Medications: Refer to reconciliation sheet for detailed list. Allergies: NO KNOWN DRUG ALLERGIES. Family History: No premature coronary artery disease or cancer. Social History: He does not smoke or drink. Does not use any drugs. Review of Systems: All systems reviewed and they were negative except what mentioned in HPI. Physical Examination: Vital Signs: Reviewed. Head and Neck: Pupils are equal, reactive to light. Intact eye movements. No JVD. No cervical lym phadenopathy. Neck is supple. Thyroid is not enlarged. Lungs: Clear to auscultation bilaterally. No rhonchi, wheezing, or crackles. No accessory muscle u se. Heart: Regular rate and rhythm. No extra sounds. Abdomen: Soft, nontender. Bowel sounds positive. No organomegaly. No masses or hernia. No rigidi ty or rebound. Extremities: No edema, clubbing, or cyanosis. Intact pulses. Skin: No rash. Neurologic: Alert, awake, oriented x3. No acute focal deficits appreciated. Investigations: Cardiac enzymes are negative. Assessment And Plan: Chest pain, known history of coronary artery disease, status post stent placeme nt with OM1 branch recently. Continue aspirin and Plavix. Obtain exercise nuclear stress test tomor row morning. SR/MODL Voice ID: [id number] Report ID: [id number]
[2022-07-05] MEDS: ATORVASTATIN 40 MG TAB PO SCH (21:03)
[2022-07-05] MEDS ORDERED: INSULIN GLARGINE 100 UNIT/ML SQ SCH (22:30)
[2022-07-05] MEDS: carisoprodoL 350 MG TAB PO PRN (23:11)
[2022-07-05] MEDS ORDERED: MELATONIN 5 MG TABLET PO PRN (23:14)
[2022-07-06 02:41] VITALS: BMI 31.8
[2022-07-06 04:11] LABS: Absolute Lymphocytes (CBC) 1.9 K/uL (0.7-4.9); Hematocrit 37.9 % (39.6-49.0); Lymphocytes % 36.9 % (15.3-44.8); MCV 88.6 fL (80-100); MPV 7.6 fL (7.6-11.3); RBC Red Blood Cell Count 4.28 M/uL (4.33-5.43)
[2022-07-06 04:32] LABS: Potassium 3.6 mEq/L (3.5-5.1)
[2022-07-06] MEDS: carvediloL 25 MG TAB PO SCH (05:00)
[2022-07-06] MEDS ORDERED: LORazepam 2 MG/ML VIAL IV PRN (06:31)
--- NOTE | 2022-07-06 07:03 | P.PN ---
Date of Service: 07/06/22 Subjective: chest pain about the same no new / worsening problems ROS: 10 point ROS as noted above, otherwise negative Physical Exam: GEN: Alert, oriented, NAD HEENT: Normal conjunctiva, sclera anicteric CV: Regular rate and rhythm, no edema Pulm: Nonlabored respirations on room air ABD: Soft, nontender, nondistended Neuro: Normal speech, normal affect vitals reviewed Problem List: Chest pain chronic Diastolic CHF (Grade 1 diastolic dysfunction on echo 06/10/22) history CAD with previous CABG [id number] with hyperglycemia Hypertension Hyperlipidemia Chronic pain Chest pain Diastolic CHF, grade 1; chronic history CAD with previous CABG Last heart cath (12/2019): s/p 2 stents placed. Patient has been compliant with medications. aspirin, statin, Plavix, carvedilol, losartan, amlodipine. Patient was previously on isosorbide but apparently cannot tolerate the medication due to severe headaches. CXR negative Trend troponins - negative x3, telemetry Cardiology consulted echo done at [facility] last month (06/10/22): EF: 55-59%, Grade 1 diastolic dysfunction Stress test performed 07/06 - Mild stress-induced ischemia suspected involving the left ventricular anterior wall and apex Diabetes mellitus type 2insulin-dependent with hyperglycemia ACHS Accu-Chek, sliding scale insulin Hypertension Hyperlipidemia Chronic pain Continue home medications VTE: Lovenox Code: Full Dispo: Home ~24hrs pending if needs stress test in AM
[2022-07-06] MEDS ORDERED: REGADENOSON 0.4 MG/5 ML SYR IV ONE (07:16)
[2022-07-06] MEDS: AMLODIPINE 10 MG TAB PO SCH (10:08)
[2022-07-06] MEDS: LOSARTAN POTASSIUM 50 MG TABLET PO SCH (10:08)
[2022-07-06] MEDS: ASPIRIN EC 81 MG TAB PO SCH (10:08)
[2022-07-06] MEDS: ENOXAPARIN 40 MG/0.4 ML SQ SCH (10:09)
[2022-07-06] MEDS: MORPHINE 2 MG/ML SYR IV PRN (10:09)
[2022-07-06] MEDS: INSULIN -REGULAR HUMAN 50 UNIT/0.5 ML ML SQ SCH ×2 (10:09→12:52)
[2022-07-06] MEDS: CLOPIDOGREL 75 MG TABLET PO SCH (10:10)
--- NOTE | 2022-07-06 11:45 | EKG ---
Test Date: 2022-07-04 Test Time: 16:16:22 Stonecutter: FRANCY MEASUREMENT RESULTS: Intervals: Rate: 73 RI: 140 QRSD: 96 QT: 360 QTc: 396 [place]: P: 26 RI: 140 QRS: -66 T: 29 INTERPRETIVE STATEMENTS: Normal sinus rhythm Left anterior fascicular block Septal infarct, age undetermined Abnormal ECG Compared to ECG 07/04/2022 16:08:31 No significant changes Electronically Signed On 07-06-22 11:41:46 CDT by Eduardo Brush
--- NOTE | 2022-07-06 11:45 | EKG ---
Test Date: 2022-07-04 Test Time: 16:08:31 Lubricating Engineer: FRANCY MEASUREMENT RESULTS: Intervals: Rate: 75 [place]: 140 QRSD: 98 QT: 360 QTc: 402 [place]: P: 43 [place]: 140 QRS: -61 T: 35 INTERPRETIVE STATEMENTS: Normal sinus rhythm Left anterior fascicular block Septal infarct, age undetermined Abnormal ECG Compared to ECG 06/08/2022 19:29:25 Left anterior fascicular block now present Myocardial infarct finding now present T-wave abnormality no longer present Electronically Signed On 07-06-22 11:41:47 CDT by Eduardo Brush
[2022-07-06 11:53] VITALS: BP 109/66; TEMP 97.6
--- NOTE | 2022-07-06 12:39 | RAD REPORT ---
EXAM DESCRIPTION: NM - Rest Stress Cardiac Imaging - 07/06/2022 9:32 am CLINICAL HISTORY: CP Chest pain. COMPARISON: Rest Stress Cardiac Imaging dated 01/19/2022 TECHNIQUE: The patient was administered approximately 10mCi of Tc 99m Sestamibi prior to resting SPE CT imaging of the heart. The patient was then administered approximately 30 mCi of Tc 99m Sestamibi f ollowing exercise or pharmacologic stress. Multiplanar SPECT images were reviewed. FINDINGS: Diminished radiopharmaceutical accumulation is noted involving the anterior wall extending to the left ventricular apex. This appears mildly more significant on the stress imaging relative to rest. No fixed defect is seen to suggest hibernating myocardium or scarred myocardium. The end diastolic volume is 121 ml, the end systolic volume is 65 ml, and the ejection fraction is 46 %. IMPRESSION: Mild stress-induced ischemia suspected involving the left ventricular anterior wall and apex.
[2022-07-06] MEDS: carisoprodoL 350 MG TAB PO PRN (12:55)
--- NOTE | 2022-07-06 13:46 | TREADPHA ---
DX: CHEST PAIN Date of Study: 07/06/2022 Ht: 5' 5 " Wt: 191 lb 0 oz Consulting Physician: GARCIA MEDICATIONS: NORCO, NORVASC, LIPITOR, ASPIRIN, COREG, PLAVIX, LOVENOX, NOVOLIN-R, COZAAR, ATIVAN HISTORY: 57 YEAR OLD MALE WITH COMPLAINTS OF CHEST PAIN. HISTORY OF CORONARY ARTERY BYPASS GRAFT X4 IN 2014, CARDIAC STENTS, CORONARY ARTERY DISEASE, DIABETES MELLITUS TYPE II, HYPERTENSION, HIGH CHOLESTROL, DENIES SMOKING, DRINKING OR DRUG USE. PHYSICIAL EXAMINATION: RESTING B.P.: 112/83 RESTING H.R.: 61 RESTING EKG: SINUS RHYTHM, OLD ANTEROSEPTAL MYOCARDIAL INFARCTION. PROTOCOL: LEXISCAN EXERCISE TIME: 3:30 B.P. AT [place] STRESS: 101/67 IMPRESSION: LEXISCAN STRESS TEST PERFORMED. LEXISCAN INJECTED. CARDIOLITE INJECTED PER PROTOCOL. SEE NUCLEAR MEDICINE REPORT. NO SUPRAVENTRICULAR TACHYCARDIA. NO VENTRICULAR TACHYCARDIA. NO PREMATURE ATRIAL COMPLEXES. NO PREMATURE VENTRICULAR COMPLEXES. PATIENT DENIES CHEST PAIN OR SHORTNESS OF BREATH.
--- NOTE | 2022-07-06 14:00 | P.DS ---
Admission Date: 07/04/22 Discharge Date: 07/06/22 Reason for Admission: Chest pain Consultations: Cardiology - Dr. Adair / Dr Brush Brief History of Present Illness: 57yo M, PMH: severe CAD status post CABG, insulin-dependent diabetes, hypertension, hyperlipidemia Patient presents the emergency department chief complaint of chest pain, he reports that he was resting watching TV when he had onset of chest pain described as pressure like "somebody sitting on my chest". He was evaluated in the emergency department initial high-sensitivity troponin within normal limits 9.5 sodium 127 glucose 196 chest x-ray was unremarkable his last heart catheteri zation was in December 2021 which showed severe [place] coronary artery disease with patent LAD stent, severe left circumflex and OM1 stenosis likely the culprit for the symptoms and stress test abnormality status post successful PCI to both arteries. Occluded RCA proximally with patent SVG graft to the RCA. Recommendations were to continue aspirin, Plavix, statin. Patient has been compliant with his medications, will admit under observation for ACS rule Hospital Course: Problem List: Chest pain chronic Diastolic CHF (Grade 1 diastolic dysfunction on echo 06/10/22) history CAD with previous CABG [id number] with hyperglycemia Hypertension Hyperlipidemia Chronic pain Physical Exam: GEN: Alert, oriented, NAD HEENT: Normal conjunctiva, sclera anicteric CV: Regular rate and rhythm, no edema Pulm: Nonlabored respirations on room air ABD: Soft, nontender, nondistended Neuro: Normal speech, normal affect Vital Signs/Physical Exam: Temp Pulse Resp BP Pulse Ox 97.6 F 79 16 109/66 99 07/06/22 11:52 07/06/22 11:52 07/06/22 11:52 07/06/22 11:52 07/06/22 11:52 Laboratory Data at Discharge: WBC 5.00 thou/uL (4.3-10.9) 07/06/22 02:40 Hgb 13.2 g/dL (13.6-17.9) L 07/06/22 02:40 Hct 37.9 % (39.6-49.0) L 07/06/22 02:40 Plt Count 178 thou/uL (152-406) 07/06/22 02:40 PT 11.1 SECONDS (9.5-12.5) 07/04/22 16:28 INR 1.01 07/04/22 16:28 Sodium 129 mEq/L (136-145) L 07/06/22 02:40 Potassium 3.6 mEq/L (3.5-5.1) 07/06/22 02:40 BUN 24 mg/dL (7-18) H 07/06/22 02:40 Creatinine 1.02 mg/dL (0.70-1.30) 07/06/22 02:40 Glucose 174 mg/dL (74-106) H 07/06/22 02:40 Magnesium 1.6 mg/dL (1.6-2.4) 07/04/22 16:28 Total Bilirubin 0.3 mg/dL (0.2-1.0) 07/04/22 16:28 AST 14 U/L (15-37) L 07/04/22 16:28 ALT 20 U/L (16-61) 07/04/22 16:28 Alkaline Phosphatase 71 U/L (45-117) 07/04/22 16:28 Triglycerides 117 mg/dL (<150) 07/05/22 02:39 Cholesterol 120 mg/dL (<200) 07/05/22 02:39 HDL Cholesterol 38 mg/dL (40-60) L 07/05/22 02:39 Cholesterol/HDL Ratio 3.16 07/05/22 02:39 Lipase 59 U/L (13-75) 07/04/22 16:28 Home Medications: Amlodipine Besylate 10 mg PO DAILY 07/04/22 Aspirin [Ecotrin 81 MG] 81 mg PO DAILY 07/04/22 Atorvastatin Calcium [Lipitor] 40 mg PO BEDTIME 07/04/22 Carisoprodol [Soma] 350 mg PO TID PRN 07/04/22 Carvedilol [Coreg] 25 mg PO BID 07/04/22 Clopidogrel Bisulfate [Plavix*] 75 mg PO DAILY 07/04/22 Hydrocodone/Acetaminophen [Hydrocodone-Acetamin 10-325 mg] 1 tab PO Q6H PRN 07/04/22 Insulin Glargine,Hum.rec.anlog [Lantus] 50 units SQ BEDTIME 07/04/22 Losartan Potassium 100 mg PO DAILY 07/04/22 Metformin HCl 1,000 mg PO BIDWM 07/04/22 Liraglutide [Victoza 2-Imer] 1.8 mg SQ DAILY 07/05/22 Physician Discharge Instructions: Patient presented with chest pain. Troponins were negative x3, and no acute abnormalities noted on x-ray. He was given aspirin, statin, Plavix, carvedilol, losartan, amlodipine. His last echo done at [facility] last month (06/10/22), showed EF: 55-59%, and Grade 1 diastolic dysfunction. Cardiology was consulted. Dr. Adair recommended he have a stress test done during his hospitalization. On day of discharge, the stress test revealed mild induced stress, and cardiology felt there was no further inpatient testing needed. Follow-up PCP within 1 week Cardiology in next few weeks Followup: Unknown,U [Primary Care Provider] - Time spent managing pt's care (in minutes): 45
--- NOTE | 2022-07-06 23:24 | PN ---
Date of Progress Note: 07/06/2022 Mr. Schultz had come in with atypical chest pain. MA ruled out. A Lexiscan showed a small amount of apical ischemia, probably secondary to an old diagonal stenosis. Last catheterization in December of 2021 showed a patent LAD stent with some 40% to 50% very distal LAD stenosis. The patient is pain-f ree now. Still complained of exertional angina from [id number]. He had 100% [place] RCA and RCA gr aft that is open in December of 2021. He underwent OM stent and circumflex stent. He has no lateral wall deficit by Lexiscan. The case was discussed with Dr. Bragg, with the patient, with his , a arnold Adair. We will plan for medical therapy for now. If his symptoms continue, Dr. Adair will re-cath him. PATRICIA/CHAYL Voice ID: [id number] Report ID: [id number]
== END 2022-07-06 15:02 | disposition home or self-care (01) ==
LOC: ER 15:44 → ERHOLD 18:42 → 2ND 19:35
PROVIDERS: ADMIT Hospitalist; ATTEND Hospitalist
DX: R07.9 Chest pain, unspecified (principal); I25.10 Atherosclerotic heart disease of native coronary artery without angina pectoris; I10 Essential (primary) hypertension; E78.5 Hyperlipidemia, unspecified; E11.65 Type 2 diabetes mellitus with hyperglycemia; I50.32 Chronic diastolic (congestive) heart failure; I99.8 Other disorder of circulatory system; Z95.1 Presence of aortocoronary bypass graft; Z82.49 Family history of ischemic heart disease and other diseases of the circulatory system; Z79.4 Long term (current) use of insulin
CPT/HCPCS: 36415; 71045; 78452; 80048; 80061; 80076; 82947; 83690; 83735; 83880; 84484; 85025; 85379; 85610; 93005; 93017; 96374; 96375; 99285; A9500; G0378; J1650; J1815; J2270; J2405; J2785

== ENCOUNTER 2022-07-13 16:58 | Observation (INO) | payer SELFPAY ==
--- OUTSIDE RECORDS SUMMARY | 2022-07-13 17:02 | XMS REPORT | Continuity of Care Document ---
:1965 Author Organization [facility] t Address [address] [place] [place] [address] Care Team Providers Name Role Phone García DONNELLY, Yolis Nkiru Attending Clinician Derrick Laureano MD Attending Clinician [phone] Issac Corrales MD Attending Clinician ISSAC CORRALES Attending Clinician Unavailable DERRICK LAUREANO Admitting Clinician Unavailable Problems Condition Condition Condition Status Onset Resolution Last Treating Co mments Source Name Details Category Date Date Treatment Clinician Date Acute Acute Disease Recurre [facility] exacerb[facility] exacerbati nce 18 [place]a kes on of CHF on of CHF 00:00: [place] (congestiv (congestiv 00 Ce nter e heart e heart failure) failure) Allergies, Adverse Reactions, Alerts Allergy Allergy Status Severity Reaction(s) Onset Inactive Treating Comm ents Source Name Type Date Date Clinician NO KNOWN [facility]ergy [facility] Social History Social Habit Start Date Stop Date Quantity Comments Source History SDOH [facility] Non-Med Medical Center History SDOH [facility] Housing Unable to Medical Center Pay Exposure to 2022-05-30 2022-06-[address] [facility] SARS-CoV-2 (event) 00:00:00 09:35:00 Medica Center Tobacco use and 2022-06-09 2022-06-09 [address] [facility] exposure 00:00:00 00:00:00 non-user Medical Center History [facility] 2022-06-09 2022-06-[address] [facility] Housing Places 00:00:00 00:00:00 Medical Ce nter Lived History [facility] 2022-06-09 2022-06-[address] [facility] Housing Homeless 00:00:00 00:00:00 Medical Center Last Year Alcohol intake 2022-06-09 2022-06-[address] [facility] 00:[facility] 00:00:00 non-drinker Medical Cente r (finding) History [facility] 2022-06-09 2022-06-[address] [facility] Transport Med 00:00:00 00:00:[address] Sex Assigned At [address] [facility] T[facility]a kes 00:00:00 00:00:00 Medical Center Smoking Status Start Date Stop Date Source Never smoked tobacco [facility] Medications Ordered Filled Start Stop Current Ordering Indication Dosage Frequency Signature Comments Components Source Medication Medication Date Date Medication? Clinician (SIG) Name Name furosemide 2023- Yes 40mg QD Take [address] [facility] [address] (LASIX) 40 4-20 04-19 tablet (40 Tressa kes MG tablet 00:00: 23:59 mg total) Me dical 00 :00 by mouth Center in the morning. furosemide 2023- Yes 40mg QD Take 1 [...] 81mg Take [address] [facility] [address] MG EC 4-19 reinfarctio tablet (81 L ukes tablet 13:17: n mg total) Medica l 27 prevention by mouth Cente r in the morning. liraglutide Yes type 2 1.8mg QD Inject 0.[address] (VICTOZA) 4-19 diabetes mLs (1.8 Tressa kes 0.6 mg/0.1 13:17: mellitus mg total) Medical mL (18 mg/3 27 subcutaneo Ce nter mL) syringe usly in the morning. atorvastati Yes mixed 40mg Take [address] [facility] n (LIPITOR) 4-19 hyperlipide tablet (40 [facility]ukes 40 MG 13:17: [...] 100 unit/mL nightly injection Use as directed. losartan Yes hypertensio 100mg QD Take 1 [...] 81mg Take [address] [facility] MG EC 4-19 reinfarctio tablet (81 L ukes tablet 13:17: n mg total) Medica l 27 prevention by mouth Cente r in the morning. liraglutide Yes type 2 1.8mg QD Inject 0.[address] (VICTOZA) 4-19 diabetes mLs (1.8 Tressa kes 0.6 mg/0.1 13:17: mellitus mg total) Medical mL (18 mg/3 27 subcutaneo Ce nter mL) syringe usly in the morning. atorvastati Yes mixed 40mg Take [address] [facility] n (LIPITOR) 4-19 hyperlipide tablet (40 Lukes 40 MG 13:17: [...] unit/mL nightly injection Use as directed. metoprolol 2022- No hypertensio 100mg Q.5D Take [address] tartrate 06-10- n tablet Lukes (LOPRESSOR) 11:35: 00:00 (100 mg Me dical 100 MG 39 :00 total) by Center tablet mouth in the morning and 1 tablet (100 mg total) before bedtime. metoprolol 2022- No hypertensio 100mg Q.5D Take [address] tartrate 06-10- n tablet Lukes (LOPRESSOR) 11:35: 00:00 (100 mg Me dical 100 MG 39 :00 total) by Center tablet mouth in the morning and 1 tablet (100 mg total) before bedtime. carvediloL 2023- Yes 25mg Take [address] [facility] [facility] (COREG) 25 06-10-18 tablet (25 Tressa kes MG tablet 00:00: 23:59 mg total) Me dical 00 :00 by mouth 2 Center (two) times daily with breakfast and dinner. carvediloL 2023- Yes 25mg Take [address] [facility] (COREG) 25 06-10-18 tablet (25 Tressa kes MG tablet 00:00: [...] kg Systolic blood 2022-06-10 11:20:00 116 mm[Hg] [facility] Diastolic blood 2022-06-10 11:20:00 80 mm[Hg] [facility] S [facility] Heart rate 2022-06-10 11:20:00 80 /min [facility] Body temperature 2022-06-10 11:20:00 36.11 [place] Respiratory rate 2022-06-10 11:20:00 18 /min [facility] Oxygen saturation in 2022-06-10 11:20:00 99 /min [facility] Arterial blood by Medical Ce ntdayron Pulse oximetry Body height 2022-06-09 06:19:00 165.1 cm [facility] Body weight 2022-06-09 06:19:00 86.183 kg [facility] BMI 2022-06-09 06:19:00 31.62 kg/m2 [facility] Procedures Procedure Date / Time Performed Performing Clinician Sourgeronimo e POCT-GLUCOSE METER 2022-06-10 11:04:00 Issac Corrales [facility] 2D ECHO W/ DOPPLER 2022-06-10 10:41:[address] [facility] (CW/PW/COLOR) [facility] POCT-GLUCOSE METER 2022-06-10 06:08:00 Derrick Laureano [facility] BASIC METABOLIC PANEL 2022-06-10 04:38:00 Derrick Laureano [facility] CBC W/PLT COUNT & AUTO 2022-06-10 04:38:00 Derrick Laureano i [facility] MAGNESIUM 2022-06-10 04:38:00 Derrick Laureano [facility] CBC W/PLT COUNT & AUTO 2022-06-10 04:38:00 Derrick Laureano i [facility] POCT-GLUCOSE METER 2022-06-09 21:02:00 Derrick Laureano [facility] POCT-GLUCOSE METER 2022-06-09 16:07:00 Derrick Laureano [facility] POCT-GLUCOSE METER 2022-06-09 11:45:00 Derrick Laureano [facility] HEMOGLOBIN A1C 2022-06-09 09:33:00 Derrick Laureano [facility] BASIC METABOLIC PANEL 2022-06-09 09:33:00 Derrick Laureano [facility] CBC W/PLT COUNT & AUTO 2022-06-09 09:33:00 Derrick Laureano i [facility] MAGNESIUM 2022-06-09 09:33:00 Derrick Laureano [facility] TROPONIN I 2022-06-09 09:33:00 Derrick Laureano [facility] LIPID PANEL 2022-06-09 09:33:00 Derrick Laureano [facility] B-TYPE NATRIURETIC 2022-06-09 09:33:00 Der[address] [facility] FACTOR (BNP) [facility] CBC W/PLT COUNT & AUTO 2022-06-09 09:33:00 Derrick Laureano i [facility] POCT-GLUCOSE METER 2022-06-09 06:00:00 Yolis Mariano [facility] Plan of Care Planned Activity Planned Date Details Comments Source Future Scheduled 2025-06-09 Lipid panel (procedure) [facility] Test 00:00:00 [code = 41333380] Medical Ce nter Future Scheduled 2025-06-09 Lipid panel (procedure) [facility] Test 00:00:00 [code = 73292200] Medical Ce nter Future Scheduled 2023-06-[address] [facility] Test 00:00:00 Counseling and Medical Cente r Screening (12+) [code = Tobacco Cessation Counseling and Screening (12+)] Future Scheduled 2023-06-[address] [facility] Test 00:00:00 Counseling and Medical Cente r Screening (12+) [code = Tobacco Cessation Counseling and Screening (12+)] Future Scheduled 2022-10-[address] [facility] Test 00:00:00 (Season Ended) [code = Medic al Center INFLUENZA VACCINE (Season Ended)] Future Scheduled 2022-10-[address] [facility] Test 00:00:00 (Season Ended) [code = Medic al Center INFLUENZA VACCINE (Season Ended)] Future Scheduled 2022-02-[address] [facility] Test 00:00:00 (12+) [code = Medical Center DEPRESSION SCREENING (12+)] Future Scheduled 2022-02-[address] [facility] Test 00:00:00 (12+) [code = Medical Center DEPRESSION SCREENING (12+)] Future Scheduled 2013 SHINGLES VACCINES ([address] [facility] Test 00:00:00 2) [code = SHINGLES Medical Center VACCINES (1 of 2)] Future Scheduled 2013 SHINGLES VACCINES ([address] [facility] Test 00:00:00 2) [code = SHINGLES [facility] VACCINES (1 of 2)] Future Scheduled 1982 DTAP/TDAP/TD VACCINES [facility] 00:00:00 (1 - Tdap) [code = Medical C enter DTAP/TDAP/TD VACCINES (1 - Tdap)] Future Scheduled 1982 DTAP/TDAP/TD VACCINES [facility] 00:00:00 (1 - Tdap) [code = Medical C enter DTAP/TDAP/TD VACCINES (1 - Tdap)] Future Scheduled 1981 HEPATITIS C SCREENING [facility] 00:00:00 [code = HEPATITIS C Medical Center SCREENING] Future Scheduled 1981 HEPATITIS C SCRE[facility]ING [facility] 00:00:00 [code = HEPATITIS C Medical Center SCREENING] Future Scheduled 1965 COVID-19 VACCINE (#1) [facility] 00:00:00 [code = COVID-[address] VACCINE (#1)] Future Scheduled 1965 COVID-19 VACCINE (#1) [facility] 00:00:00 [code = COVID-[address] VACCINE (#1)] Future Scheduled 1963 CT Colonography (combo) [facility] Test 00:00:00 [code = CT Colonography [facility] (combo)] Future Scheduled 1963 Screening for malignant [facility] Test 00:00:00 neoplasm of colon Medical Ce nter (procedure) [code = 414230105] Future Scheduled 1963 Screening for malignant [facility] Test 00:00:00 neoplasm of colon Medical Ce nter (procedure) [code = 501118467] Future Scheduled 1963 Screening for malignant [facility] Test 00:00:00 neoplasm of colon Medical Ce nter (procedure) [code = 374483682] Future Scheduled 1963 Screening for malignant [facility] Test 00:00:00 neoplasm of colon Medical Ce nter (procedure) [code = 248793442] Future Scheduled 1965 Sigmoidoscopy [code = [facility] 00:00:00 Sigmoidoscopy] Medical Cente r Future Scheduled 1963 CT Colonography (combo) [facility] Test 00:00:00 [code = CT Colonography [facility] (combo)] Future Scheduled 1963 Screening for malignant [facility] Test 00:00:00 neoplasm of colon Medical Ce nter (procedure) [code = 119738318] Future Scheduled 1963 Screening for malignant [facility] Test 00:00:00 neoplasm of colon Medical Ce nter (procedure) [code = 240610700] Future Scheduled 1963 Screening for malignant [facility] Test 00:00:00 neoplasm of colon Medical Ce nter (procedure) [code = 179451997] Future Scheduled 1963 Screening for malignant [facility] Test 00:00:00 neoplasm of colon Medical Ce nter (procedure) [code = 223801109] Future Scheduled 1965 Sigmoidoscopy [code = [facility] 00:00:00 Sigmoidoscopy] Medical Cente r Encounters Start End Encounter Admission Attending Care Care Encounter Source Date/Time Date/Time Type Type Clinicians Facility Department ID 2022-06-09 2022-06-10 [facility] [id number] 05:46[facility]00 13:08:00 [facility]22-06-10 [facility] [id number] [facility] 05:46:00 13:08:00 [facility]22-06-10 [facility] [id number] [facility] 05:46:00 13:08:00 ISSAC 2022-06-09 2022-06-[address] [facility] [id number] [facility] 00:00:00 [facility] 2022-06-09 2022-06-[address] [facility] [id number] [facility] 00:00:00 [facility] Results Test Description Test Time Test Comments Results Result Sourc e Comments 2D Echo 2022-06-[address] [facility] W/Doppler(CW/PW/C 11:17:34 FractionSLE ECHO Medical olor) [facility] 2D Echo 2022-06-[address] [facility] W/Doppler(CW/PW/C 11:17:34 FractionSLE ECHO Medical olor) [facility] POC-Glucose meter 2022-06-10 11:15:49 Test Item Value Reference Range Interpretation Comme nts POC-Glucose Meter (test code = 130 mg/dL 70-110 H : TESTED AT [facility] [address] [facility] [address]) [place] [address]: Inspector Soldering/Techni juan ID = [id number] for Ron, Rachel e Lab Interpretation (test code = Abnormal 56369-4) [facility] [id number] 11:15:49 Test Item Value Reference Range Interpretation Comments POC-Glucose Meter (test 130 mg/dL 70-110 H : TE STED AT [facility] code = 1538) [address] [place] [address]: Inspector Soldering/Techni juan ID = [id number] for Ron, Rachel e Lab Interpretation (test Abnormal code = 43918-6) [facility] [id number] 11:15:49 Test Item Value Reference Range Interpretation Comments POC-GLUCOSE METER 130 mg/dL 70-110 H : TESTED A T [facility] [address]17 (BEAKER) (test code [address] NT [facility], = 1538) [facility] 77 8: Inspector Soldering/Techni juan ID = [id number] for Hamzah lar, Martha POCT-GLUCOSE [id number] 06:19:33 Test Item Value Reference Range Interpretation Comments POC-GLUCOSE METER 302 mg/dL 70-110 H : Notified RN/MD: TESTED (BEAKER) (test code AT [facility] [address] = [address]) [facility] [place] [address]: Inspector Soldering/Techni juan ID = [id number] for Wallace Nicole [id number] 06:03:09 Test Item Value Reference Range Interpretation Comments MAGNESIUM (BEAKER) (test code = 1.6 mg/dL 1.5-3.0 627) Inspector Soldering ID - [id number] ID - [id number] ID - [id number] ID - [id number] BASIC METABOLIC [id number] 06:01:50 Test Item Value Reference Range Interpretation [...] eGFR (test code = mL/min/1.73 values Stage D escription 1092) sq m Result G1 Maranda l or high >=90 G2 Mildly decreased 60-89 G3a Mildl y to moderately 45-5 9 G3b Moderately to s everely 30-44 G4 Severl y decreased 15-29 G5 Kidney failure <15Reported eGF R is based on the CKD-EPI 2021 equation that d oes not use a race coefficientEsti mated GFR is not as accur ate as Creatinine Yasmine ngo in predicting glom erular filtration rate . Estimated GFR is not appl icable for dialysis patien ts Inspector Soldering ID - [id number] ID - [id number] ID - [id number] ID - [id number] ID - [id number] ID - [id number] ID - [id number] ID - [id number] ID - [id number] W/PLT COUNT & AUTO [id number] 05:34:17 Test Item Value Reference Range Interpretation [...] PERCENT (BEAKER) (test code = 2801) POCT-GLUCOSE [id number] 21:14:04 Test Item Value Reference Range Interpretation Comments POC-GLUCOSE METER 233 mg/dL 70-110 H : TESTED A T [facility] [address] (BEAKER) (test code [address], = 1538) [place] [address]: Inspector Soldering/Techni juan ID = [id number] for Ann Marie Winkler POCT-GLUCOSE [id number] 16:19:49 Test Item Value Reference Range Interpretation Comments POC-GLUCOSE METER 254 mg/dL 70-110 H : TESTED A T [facility] [address] (BEAKER) (test code [address], = 1538) [place] [address]: Inspector Soldering/Techni juan ID = [id number] for Christy Valencia POCT-GLUCOSE [id number] 11:57:18 Test Item Value Reference Range Interpretation Comments POC-GLUCOSE METER 253 mg/dL 70-110 H : TESTED A T [facility] [address] (BEAKER) ([facility] [address] [address]) [place] [address]: Inspector Soldering/Techni juan ID = [id number] for Jennifer Brown TROPONIN [id number] 10:29:04 Test Item Value Reference Range Interpretation [...] failure, acidosis, acute neurological disease, and persistent tachyarrhythmia.Inspector Soldering ID - [id number] NATRIURETIC FACTOR (BNP)2022-06-09 10:09:46 Test Item Value Reference Range Interpretation Comments B-TYPE NATRIURETIC PEPTIDE (BEAKER) 145 pg/mL 0-100 H (test code = 700) Inspector Soldering ID - [id number] 10:05:21 Test Item Value Reference Range Interpretation [...] Borderline 130-159 High 160-189 Very High >=190 Inspector Soldering ID - [id number] ID - [id number] ID - [id number] 10:05:21 Test Item Value Reference Range Interpretation Comments MAGNESIUM (BEAKER) 1.5 mg/dL 1.5-3.0 Specimen slightly (test code = 627) hemolyzed Inspector Soldering ID - [id number] ID - [id number] ID - [id number] ID - [id number] METABOLIC [id number] 10:04:06 Test Item Value Reference Range Interpretation [...] not appl icable for dialysis patien ts Inspector Soldering ID - [id number] ID - [id number] ID - [id number] ID - [id number] ID - [id number] ID - [id number] ID - [id number] ID - [id number] ID - [id number] 09:57:19 Test Item Value Reference Range Interpretation Comments HEMOGLOBIN A1C (BEAKER) (test code = 8.4 % 4.3-6.1 H 368) Inspector Soldering ID - [id number] W/PLT COUNT & AUTO [id number] 09:47:46 Test Item Value Reference Range Interpretation [...] PERCENT (BEAKER) (test code = 2801) POCT-GLUCOSE [id number] 06:11:39 Test Item Value Reference Range Interpretation Comments POC-GLUCOSE METER 157 mg/dL 70-110 H : TESTED A T [facility] [address] (BEAKER) (test code [facility] [address], = 1538) [facility] [address]: Inspector Soldering/Techni juan ID = [id number] for Anastacia Brock
[2022-07-13 18:03] LABS: Absolute Lymphocytes (CBC) 1.7 K/uL (0.7-4.9); Hematocrit 42.9 % (39.6-49.0); Lymphocytes % 25.6 % (15.3-44.8); MCV 89.8 fL (80-100); MPV 6.9 fL (7.6-11.3); RBC Red Blood Cell Count 4.78 M/uL (4.33-5.43)
[2022-07-13 18:08] LABS: Protime INR 0.8
[2022-07-13 18:22] LABS: ALT/SGPT 26 U/L (16-61); AST/SGOT 12 U/L (15-37); Albumin 3.9 g/dL (3.4-5.0); Alkaline Phosphatase 72 U/L (45-117); BUN Blood Urea Nitrogen 21 mg/dL (7-18); Bicarbonate 24 mEq/L (21-32); Bilirubin Total 0.3 mg/dL (0.2-1.0); Glomerular Filtration Rate 78 ml/min (=/>90); Glucose Level 202 mg/dL (74-106); Magnesium 1.6 mg/dL (1.6-2.4); NT PRO-BNP 990 pg/mL (<125); Potassium 3.6 mEq/L (3.5-5.1); Protein, Total 7.9 g/dL (6.4-8.2); Sodium Level 133 mEq/L (136-145); Troponin High Sensitivity 11.2 pg/mL (<58.9)
[2022-07-13 18:24] LABS: Bilirubin Direct < 0.1 mg/dL (0-0.2); Bilirubin Indirect, Calculated ND mg/dL (0.2-0.8)
--- NOTE | 2022-07-13 18:29 | RAD REPORT ---
EXAM DESCRIPTION: RAD - Chest Single View - 07/13/2022 6:15 pm CLINICAL HISTORY: CHEST PAIN Chest pain. COMPARISON: Chest Single View dated 07/04/2022; Chest Single View dated 06/08/2022; Chest Single View dated 05/12/2022; Chest Single View dated 02/14/2022 FINDINGS: Portable technique limits examination quality. Mild pulmonary edema. The heart is enlarged mildly. No displaced fractures.Sternotomy wires. IMPRESSION: Mild CHF.
[2022-07-13] MEDS ORDERED: FUROSEMIDE 40 MG/4 ML VIAL ONE (20:52)
--- NOTE | 2022-07-13 22:39 | ER ---
Nurse's Notes [facility] Name: Jorge Schultz Jr Age: 57 yrs Sex: Male : 1965 Arrival Date: 07/13/2022 Time: 16:58 Bed 2 Private MD: Felipe Sinha Diagnosis: Angina pectoris, unspecified;Acute diastolic heart failure exacerbation, pulmonary edema Presentation: 07/13 17:41 Chief complaint: Patient states: L sided chest pain that started at approx 10 am, also aa5 reports numbness to L arm, nausea and SOB. Coronavirus screen: Vaccine status: Patient reports receiving the 2nd dose of the covid vaccine. Ebola Screen: No symptoms or risks identified at this time. Initial Sepsis Screen: Does the patient meet any 2 criteria? No. Patient's initial sepsis screen is negative. Does the patient have a suspected source of infection? No. Patient's initial sepsis screen is negative. Risk Assessment: Do you want to hurt yourself or someone else? Patient reports no desire to harm self or others. Onset of symptoms was July 13, 2022. 17:41 Method Of Arrival: Wheelchair aa5 17:41 Acuity: AALIYAH 3 aa5 Historical: - Allergies: 17:43 No Known Drug Allergies; aa5 - PMHx: 17:43 Anxiety; CAD; GERD; Glaucoma; High Cholesterol; Hypertension; IDDM; Myocardial aa5 infarction; - PSHx: 17:43 CABG; cardiac stents x 2; aa5 - Immunization history:: Adult Immunizations unknown. - Social history:: Smoking status: Patient denies any tobacco usage or history of. Screenin:[facility] ED Fall Risk Assessment (Adult) History of falling in the last 3 months, mb9 including since admission No falls in past 3 months (0 pts) Confusion or Disorientation No (0 pts) Intoxicated or Sedated No (0 pts) Impaired Gait No (0 pts) Mobility Assist Device Used No (0 pt) Altered Elimination No (0 pt) Score/Fall Risk Level 0 - 2 = Low Risk Oriented to surroundings, Maintained a safe environment, Educated pt \T\ family on fall prevention, incl call for assistance when getting out of bed. Abuse screen: Denies threats or abuse. Nutritional screening: No deficits noted. Tuberculosis screening: No symptoms or risk factors identified. Assessment: 18:29 General: Appears in no apparent distress. Behavior is cooperative. Pain: Complains of mb9 pain in chest Pain radiates to left arm Pain currently is 7 out of 10 on a pain scale. Neuro: Level of Consciousness is awake, alert, obeys commands, Oriented to person, place, time, situation, Appropriate for age. Cardiovascular: Heart tones S1 S2 present Patient's skin is warm and dry. Rhythm is regular. Respiratory: Airway is patent Respiratory effort is even, unlabored, Respiratory pattern is regular, symmetrical. GI: No signs and/or symptoms were reported involving the gastrointestinal system. GI: Abdomen is round non-distended, Bowel sounds present X 4 quads. Abd is soft and non tender X 4 quads. Reports nausea. Derm: Skin is pink, warm \T\ dry. Musculoskeletal: Range of motion: intact in all extremities. 19:00 Reassessment: No changes from previously documented assessment. Patient and/or family vc1 updated on plan of care and expected duration. Pain level reassessed. Patient is alert, oriented x 3, equal unlabored respirations, skin warm/dry/pink. 20:00 Reassessment: No changes from previously documented assessment. Patient and/or family vc1 updated on plan of care and expected duration. Pain level reassessed. Patient is alert, oriented x 3, equal unlabored respirations, skin warm/dry/pink. 21:00 Reassessment: No changes from previously documented assessment. Patient and/or family vc1 updated on plan of care and expected duration. Pain level reassessed. Patient is alert, oriented x 3, equal unlabored respirations, skin warm/dry/pink. 22:00 Reassessment: No changes from previously documented assessment. Patient and/or family vc1 updated on plan of care and expected duration. Pain level reassessed. Patient is alert, oriented x 3, equal unlabored respirations, skin warm/dry/pink. Vital Signs: 17:41 BP 113 / 81; Pulse 90; Resp 18; Temp 97.8; Pulse Ox 100% on R/A; Weight 86.18 kg; aa5 Height 5 ft. 5 in. ; 18:30 BP 105 / 88; Pulse 77; Resp 18; Pulse Ox 98% ; mb9 19:00 BP 109 / 77; Pulse 68; Resp 13; Pulse Ox 97% on R/A; vc1 20:00 BP 121 / 80; Pulse 64; Resp 17; Pulse Ox 98% on R/A; vc1 21:00 BP 133 / 94; Pulse 71; Resp 17; Pulse Ox 99% ; vc1 22:00 BP 120 / 78; Pulse 70; Resp 17; Pulse Ox 99% ; vc1 23:00 BP 120 / 87; Pulse 84; Resp 26; Pulse Ox 99% ; vc1 17:41 Body Mass Index 31.62 (86.18 kg, 165.1 cm) aa5 ED Course: 16:59 Patient arrived in ED. am2 16:59 Felipe Sinha MD is Private Physician. am2 17:30 Claudia Alcazar MD is Attending Physician. sp3 17:43 Triage completed. aa5 17:43 Arm band placed on. aa5 17:51 Idalia Galindo, RN is Primary Nurse. mb9 17:58 Inserted saline lock: 20 gauge in right forearm, using aseptic technique. Blood zm collected. 17:58 Basic Metabolic Panel Sent. zm 17:59 CBC with Diff Sent. zm 17:59 LFT's Sent. zm 17:59 Magnesium Sent. zm 17:59 NT PRO-BNP Sent. zm 17:59 PT-INR Sent. zm 17:59 Troponin HS Sent. zm 18:17 XRAY Chest (1 view) In Process Unspecified. EDMS 19:00 Patient has correct armband on for positive identification. Bed in low position. Client vc1 placed on continuous cardiac and pulse oximetry monitoring. NIBP monitoring applied. 21:37 Attending Physician role handed off by Claudia Alcazar MD sp4 21:37 Lenny Sotelo MD is Attending Physician. sp4 22:07 Troponin High Sensitivity Sent. mb9 22:08 Patient maintains SpO2 saturation greater than 95% on room air. vc1 22:38 Miguel Bragg MD is Hospitalizing Provider. sp4 23:33 No provider procedures requiring assistance completed. Patient admitted, IV remains in vc1 place. Administered Medications: 20:53 Drug: Furosemide IVP 40 mg Route: IVP; Site: right forearm; vc1 22:45 Drug: morphine IVP or IV 4 mg Route: IVP; Infused Over: 4 mins; Site: right forearm; vc1 22:45 Drug: Ondansetron IVP 6 mg Route: IVP; Site: right forearm; vc1 Medication: 17:52 VIS not applicable for this client. mb9 Outcome: 22:39 Decision to Hospitalize by Provider. spAruna 23:52 Admitted to Med/surg via wheelchair, room 229, Report called to Shanice silverio 23:52 Condition: stable 23:52 Discharge instructions given to patient, Instructed on the need for admit, Demonstrated understanding of instructions. 23:56 Patient left the ED. nusrat Signatures: Dispatcher [employer] EDFifi Ceja, RN RN Karena Gilliam RN RN aa5 Rhiannon Schmitt Setul, MD MD sp3 Amanda Sauer RN RN vc1 Nia Newberry, Idalia Rodarte, RN RN mb9 Lenny Sotelo MD MD sp4
--- NOTE | 2022-07-13 22:40 | EDPHYS ---
Physician Documentation [facility] Name: Jorge Schultz Jr Age: 57 yrs Sex: Male : 1965 Arrival Date: 07/13/2022 Time: 16:58 Bed 2 Private MD: Felipe Sinha ED Physician Lenny Sotelo HPI: 07/13 17:51 This 57 yrs old Male presents to ER via Wheelchair with complaints of Chest sp3 Pain, Shortness Of Breath, General Weakness. 17:51 7-year-old male with extensive history of CAD, hyperlipidemia, hypertension and status sp3 post CABG, anxiety multiple ER visits well-known to the ED now presents again for recurrent left-sided chest pain and his typical pattern shortness of breath, syncope, abdominal pain, back pain, or any other anginal equivalents. Patient has his next appointment with his section cutter Dr. Brush in approximately 2 weeks. He was recently admitted and discharged after negatively ruling out. Patient denies any other symptoms on review of systems including headache, neck pain, back pain, shortness of breath, abdominal pain, nausea, vomiting, diarrhea, syncope, neuro symptoms, travel history, prolonged immobilization, history of DVT or PE, or any other signs or symptoms including fever at this time.. Historical: - Allergies: 17:43 No Known Drug Allergies; aa5 - PMHx: 17:43 Anxiety; CAD; GERD; Glaucoma; High Cholesterol; Hypertension; IDDM; Myocardial aa5 infarction; - PSHx: 17:43 CABG; cardiac stents x 2; aa5 - Immunization history:: Adult Immunizations unknown. - Social history:: Smoking status: Patient denies any tobacco usage or history of. ROS: 17:53 Constitutional: Negative for fever, chills, and weight loss, Eyes: Negative for injury, sp3 pain, redness, and discharge, Neck: Negative for injury, pain, and swelling, Respiratory: Negative for shortness of breath, cough, wheezing, and pleuritic chest pain, Abdomen/GI: Negative for abdominal pain, nausea, vomiting, diarrhea, and constipation, Back: Negative for injury and pain, MS/Extremity: Negative for injury and deformity, Skin: Negative for injury, rash, and discoloration, Neuro: Negative for headache, weakness, numbness, tingling, and seizure, Psych: Negative for depression, anxiety, suicide ideation, homicidal ideation, and hallucinations, Allergy/Immunology: Negative for hives, rash, and allergies, Endocrine: Negative for neck swelling, polydipsia, polyuria, polyphagia, and marked weight changes. 17:53 All other systems are negative. Exam: 17:53 Constitutional: This is a well developed, well nourished patient who is awake, alert, sp3 and in no acute distress. Head/Face: Normocephalic, atraumatic. Eyes: Pupils equal round and reactive to light, extra-ocular motions intact. Lids and lashes normal. Conjunctiva and sclera are non-icteric and not injected. Cornea within normal limits. Periorbital areas with no swelling, redness, or edema. ENT: Nares patent. No nasal discharge, no septal abnormalities noted. External auditory canals are clear. Oropharynx with no redness, swelling, or masses, exudates, or evidence of obstruction, uvula midline. Mucous membranes moist. Neck: Trachea midline, no thyromegaly or masses palpated, and no cervical lymphadenopathy. Supple, full range of motion without nuchal rigidity, or vertebral point tenderness. No Meningismus. Chest/axilla: Normal chest wall appearance and motion. Nontender with no deformity. No lesions are appreciated. Cardiovascular: Regular rate and rhythm with a normal S1 and S2. No gallops, murmurs, or rubs. Normal PMI, no JVD. No pulse deficits. Respiratory: Lungs have equal breath sounds bilaterally, clear to auscultation and percussion. No rales, rhonchi or wheezes noted. No increased work of breathing, no retractions or nasal flaring. Abdomen/GI: Soft, non-tender, with normal bowel sounds. No distension or tympany. No guarding or rebound. No evidence of tenderness throughout. Back: No spinal tenderness. No costovertebral tenderness. Full range of motion. Skin: Warm, dry with normal turgor. Normal color with no rashes, no lesions, and no evidence of cellulitis. MS/ Extremity: Pulses equal, no cyanosis. Neurovascular intact. Full, normal range of motion. Neuro: Awake and alert, GCS 15, oriented to person, place, time, and situation. Cranial nerves II-XII grossly intact. Motor strength 5/5 in all extremities. Sensory grossly intact. Cerebellar exam normal. Normal gait. Psych: Awake, alert, with orientation to person, place and time. Behavior, mood, and affect are within normal limits. 18:19 ECG was reviewed by the Attending Physician. EKG demonstrates normal sinus rhythm at 77 sp3 bpm with normal intervals, leftward axis, poor R wave progression in the precordial leads and nonspecific diffuse ST/T changes without evidence of acute ischemia. 22:36 Repeat EKG at 2204 revealed normal sinus rhythm at the rate of 70, no ST elevation or sp4 depression, no ectopy, low voltage QRS, muscle tremor artifact, no acute ST-T segment changes Vital Signs: 17:41 BP 113 / 81; Pulse 90; Resp 18; Temp 97.8; Pulse Ox 100% on R/A; Weight 86.18 kg; aa5 Height 5 ft. 5 in. ; 18:30 BP 105 / 88; Pulse 77; Resp 18; Pulse Ox 98% ; mb9 19:00 BP 109 / 77; Pulse 68; Resp 13; Pulse Ox 97% on R/A; vc1 20:00 BP 121 / 80; Pulse 64; Resp 17; Pulse Ox 98% on R/A; vc1 21:00 BP 133 / 94; Pulse 71; Resp 17; Pulse Ox 99% ; vc1 22:00 BP 120 / 78; Pulse 70; Resp 17; Pulse Ox 99% ; vc1 23:00 BP 120 / 87; Pulse 84; Resp 26; Pulse Ox 99% ; vc1 17:41 Body Mass Index 31.62 (86.18 kg, 165.1 cm) aa5 MDM: 17:45 Patient medically screened. sp3 17:53 Data reviewed: vital signs, nurses notes, lab test result(s), EKG, radiologic studies. sp3 ED course: 57-year-old male here for recurrent chest pain well-known to the ED. Will obtain standard cardiac work-up and disposition accordingly. I do not believe patient is having acute NC, PE, thoracic aortic aneurysm or dissection, sepsis, shock, or any other critical findings at this time.. 19:40 ED course: Initial troponin is negative. BNP is 990 and chest x-ray demonstrates mild sp3 CHF. We will administer Lasix 40 mg IV and repeat troponin and if negative patient has diuresis, patient will be safe for discharge with PCP follow-up and cardiology follow-up with Dr. Brush. No admission criteria is present.. 19:41 ED course: Signed out to Dr. Godfrey carson ER physician.. 3 22:25 Differential diagnosis: anxiety, coronary artery disease chest wall pain, congestive sp4 heart failure cholecystitis, Cholelithiasis. ED course: Patient care assumed from Dr. Alcazar at 8 PM. Patient has history of chronic diastolic congestive heart failure, CAD, CABG, diabetes mellitus type 2, hypertension, hyperlipidemia, chronic pain. Patient was evaluated in the hospital on 07/04/2022/through 07/06/2022. Patient is on aspirin, Plavix, statin other medications include amlodipine. Atorvastatin. Soma. Carvedilol. Hydrocodone. Insulin. Losartan. Metformin. Victoza. ED course: Patient has had stress test on 07/06/2022 that has revealed mild induced stress, section cutter has felt that no further testing was necessary.. 22:36 HEART Score: History: Highly Suspicious (2), ECG: Non specific repolarization sp4 disturbance / LBTB / PM (1), Age: > 45 and < 65 years (1), Risk Factors: > or = 3 Risk factors for atherosclerotic disease (2), Troponin: < or = 1 x Normal Limit (0), Total Score = 6. Data reviewed: old medical records. ED course: Patient states he has persistent chest pain, chest x-ray and labs and exam reveal mild to moderate CHF exacerbation, diastolic heart failure, patient at this time warrants admission to the hospital for further management of heart failure and assessment by cardiology. . 07/13 17:45 Order name: Basic Metabolic Panel; Complete Time: 19:37 3 07/13 17:45 Order name: CBC with Diff; Complete Time: 19:37 3 07/13 17:45 Order name: LFT's; Complete Time: 19:37 3 07/13 17:45 Order name: Magnesium; Complete Time: 19:37 3 07/13 17:45 Order name: NT PRO-BNP; Complete Time: 19:37 3 07/13 17:45 Order name: PT-INR; Complete Time: 19:37 3 07/13 17:45 Order name: Troponin HS; Complete Time: 19:37 3 07/13 19:40 Order name: Troponin High Sensitivity; Complete Time: 22:39 3 07/13 21:38 Order name: Troponin High Sensitivity sp4 07/13 17:45 Order name: XRAY Chest (1 view); Complete Time: 19:37 sp3 07/13 17:45 Order name: EKG; Complete Time: 17:46 sp3 07/13 21:38 Order name: EKG; Complete Time: 21:38 sp4 07/13 17:45 Order name: Cardiac monitoring; Complete Time: 18:10 sp3 07/13 17:45 Order name: EKG - Nurse/Tech; Complete Time: 18:10 sp3 07/13 17:45 Order name: IV Saline Lock; Complete Time: 17:58 sp3 07/13 17:45 Order name: Labs collected and sent; Complete Time: 17:58 sp3 07/13 17:45 Order name: O2 Per Protocol; Complete Time: 17:59 sp3 07/13 17:45 Order name: O2 Sat Monitoring; Complete Time: 17:59 sp3 07/13 21:38 Order name: EKG Strip; Complete Time: 22:07 sp4 Administered Medications: 20:53 Drug: Furosemide IVP 40 mg Route: IVP; Site: right forearm; vc1 22:45 Drug: morphine IVP or IV 4 mg Route: IVP; Infused Over: 4 mins; Site: right forearm; vc1 22:45 Drug: Ondansetron IVP 6 mg Route: IVP; Site: right forearm; vc1 Disposition Summary: 07/13/22 22:39 Hospitalization Ordered Hospitalization Status: Observation sp4 Provider: Miguel Bragg sp4 Location: Telemetry/MedSur (observation) sp4 Condition: Stable sp4 Problem: new sp4 Symptoms: have improved sp4 Bed/Room Type: Standard sp4 Room Assignment: 229(07/13/22 23:27) Diagnosis - Angina pectoris, unspecified sp4 - Acute diastolic heart failure exacerbation, pulmonary edema sp4 Forms: - Medication Reconciliation Form sp4 - SBAR form sp4 Signatures: Dispatcher [employer] EDMS Carolee Reyes RN RN mw Calderon, Audri RN RN aa5 Reinaldo Childs, BRIDGE PAINTER HELPER-C BRIDGE PAINTER HELPER-Cla1 Claudia Alcazar MD MD sp3 Amanda Sauer RN RN vc1 Lenny Sotelo MD MD sp4 Corrections: (The following items were deleted from the chart) 22:39 sp4
[2022-07-13] MEDS ORDERED: MORPHINE 4 MG/ML SYR ONE (22:48)
[2022-07-13] MEDS ORDERED: ONDANSETRON 4 MG/2 ML VIAL ONE (22:48)
--- NOTE | 2022-07-13 23:38 | P.HP ---
Certification for Inpatient Patient admitted to: Observation With expected LOS: <2 Midnights Patient will require the following post-hospital care: None Practitioner: I am a practitioner with admitting privileges, knowledge of patient current condition, hospital course, and medical plan of care. Services: Services provided to patient in accordance with Admission requirements found in Title 42 Section 412.3 of the Code of Federal Regulations Patient History Date of Service: 07/13/22 Reason for admission: Chest pain History of Present Illness: 57-year-old male with history of severe CAD status post CABG, insulin-dependent diabetes, hypertension, hyperlipidemia presents the emergency department chief complaint of chest pain, he reports earlier today at rest he began to have severe left-sided chest pain with paresthesias of the left upper extremity. He was evaluated in the emergency department initial high-sensitivity troponin within normal limits EKG without STEMI criteria, chest x-ray shows mild CHF. He was given a dose of IV Lasix in the emergency department. His last heart catheterization was in December 2021 which showed severe nondalton coronary artery disease with patent LAD stent, severe left circumflex and OM1 stenosis likely the culprit for the symptoms and stress test abnormality status post successful PCI to both arteries. Occluded RCA proximally with patent SVG graft to the RCA. Recommendations were to continue aspirin, Plavix, statin. He was also recently admitted on the during that admission he had a stress test which showed mild stress-induced ischemia suspected involving the left ventricular anterior wall and apex, reportedly previously this area was larger no further inpatient work-up was recommended at that time. We will admit patient under observation for ACS rule out. Allergies No Known Drug Allergies Allergy (Verified 07/04/22 21:50) Unknown Home Medications: Amlodipine Besylate 10 mg PO DAILY 07/04/22 Aspirin [Ecotrin 81 MG] 81 mg PO DAILY 07/04/22 Atorvastatin Calcium [Lipitor] 40 mg PO BEDTIME 07/04/22 Carisoprodol [Soma] 350 mg PO TID PRN 07/04/22 Carvedilol [Coreg] 25 mg PO BID 07/04/22 Clopidogrel Bisulfate [Plavix*] 75 mg PO DAILY 07/04/22 Hydrocodone/Acetaminophen [Hydrocodone-Acetamin 10-325 mg] 1 tab PO Q6H PRN Insulin Glargine,Hum.rec.anlog [Lantus] 50 units SQ BEDTIME 07/04/22 Losartan Potassium 100 mg PO DAILY 07/04/22 Metformin HCl 1,000 mg PO BIDWM 07/04/22 Liraglutide [Victoza 2-Imer] 1.8 mg SQ DAILY 07/05/22 - Past Medical/Surgical History Diabetic: Yes -: X3 MIs -: IDDM -: chronic back pain -: cataracts -: glaucoma rt eye -: cellulitis -: staph infection with CABG -: Glaucoma -: Staph infection wound chest -: cardiac cath -: lumbar epidural injection x3 -: CABG (May 29 2014) x 4 vessels -: Cardiac stents x2 01/20/2022 -: Cardiac stents x2 01/20/2022 Psychosocial/ Personal History: Patient lives at home with his . - Family History Mother -: Heart disease, Diabetes Father -: Stroke, Cancer Notes: Multiple CANCER Sister -: Cancer Notes: liver - Social History Alcohol use: No CD- Drugs: No Caffeine use: Yes Place of Residence: Home Review of Systems 10-point ROS is otherwise unremarkable Cardiovascular: Chest Pain Physical Examination - Physical Exam General: Alert, In no apparent distress, Oriented x3 HEENT: Atraumatic, PERRLA, Mucous membr. moist/pink, EOMI, Sclerae nonicteric Neck: Supple, 2+ carotid pulse no bruit, No LAD, Without JVD or thyroid abnormality Respiratory: Clear to auscultation bilaterally, Normal air movement Cardiovascular: Regular rate/rhythm, Normal S1 S2 Gastrointestinal: Normal bowel sounds, No tenderness Musculoskeletal: No tenderness Integumentary: No rashes Neurological: Normal speech, Normal strength at 5/5 x4 extr, Normal tone, Normal affect - Studies Laboratory Data (last 24 hrs) 07/13/22 17:54: PT 9.7, INR 0.80 07/13/22 17:54: WBC 6.50, Hgb 14.8, Hct 42.9, Plt Count 218 07/13/22 17:54: Sodium 133 L, Potassium 3.6, BUN 21 H, Creatinine 1.09, Glucose 202 H, Magnesium 1.6, Total Bilirubin 0.3, AST 12 L, ALT 26, Alkaline Phosphatase 72 Assessment and Plan - Plan Assessment: Chest pain rule out ACShistory CAD with previous CABG Diabetes mellitus type 2insulin-dependent with hyperglycemia Hypertension Hyperlipidemia Chronic pain Plan: Chest pain rule out ACShistory CAD with previous CABG Trend troponins, monitor on telemetry, cardiology consult in place. Had a recent stress test with mild stress induces ischemia but this is reportedly an improvement from previous. On medications continued including aspirin, statin, Plavix, carvedilol, losartan, amlodipine. Patient was previously on isosorbide but apparently cannot tolerate the medication due to severe headaches. Appreciate further per from cardiology. Diabetes mellitus type 2insulin-dependent with hyperglycemia ACHS Accu-Chek, sliding scale insulin. Hypertension Hyperlipidemia Chronic pain Home medications continued. DVT PPX: Lovenox Code status: Full Discharge Plan: Home Plan to discharge in: 24 Hours Discharge Plan: Home Plan to discharge in: 24 Hours - Advance Directives Does patient have a Living Will: No Does patient have a Durable POA for Healthcare: No - Code Status/Comfort Care Code Status Assessed: Yes (Full code) Critical Care: No Time Spent Managing Pts Care (In Minutes): 55
[2022-07-14] MEDS ORDERED: ONDANSETRON 4 MG/2 ML VIAL IV PRN (00:07)
[2022-07-14 00:30] VITALS: BMI 29.7
[2022-07-14] MEDS: carisoprodoL 350 MG TAB PO PRN ×3 (00:46→21:35)
[2022-07-14 03:54] LABS: Hematocrit 39.6 % (39.6-49.0); Lymphocytes % 32.8 % (15.3-44.8); MCV 89.7 fL (80-100); RBC Red Blood Cell Count 4.42 M/uL (4.33-5.43)
[2022-07-14 04:20] LABS: Potassium 3.7 mEq/L (3.5-5.1); Troponin High Sensitivity 11.9 pg/mL (<58.9)
--- NOTE | 2022-07-14 07:06 | P.PN ---
Date of Service: 07/14/22 Subjective: Feeling alright this morning intermittent chest pain worsened last night; improved this morning no new / worsening problems ROS: 10 point ROS as noted above, otherwise negative Physical Exam: GEN: Alert, oriented, NAD HEENT: Normal conjunctiva, sclera anicteric CV: Regular rate and rhythm, no edema Pulm: Nonlabored respirations on room air ABD: Soft, nontender, nondistended Neuro: Normal speech, normal affect vitals reviewed Problem List: Chest pain history CAD with previous CABG [id number] with hyperglycemia Hypertension Hyperlipidemia Chronic pain Chest pain history CAD with previous CABG Had a recent stress test with mild stress induced ischemia Patient was previously on isosorbide but apparently cannot tolerate the medication due to severe headaches troponin negative x3 continue telemetry cardiology consulted cath planned for tomorrow continue aspirin, statin, Plavix, carvedilol, losartan, amlodipine. [id number] with hyperglycemia ACHS Accu-Chek, sliding scale insulin Hypertension Hyperlipidemia Chronic pain continue home medications VTE: Lovenox Code: Full Dispo: home, ~ 24 hrs
[2022-07-14] MEDS: HYDROCODONE/APAP 10/325 TAB PO PRN ×2 (07:19→13:46)
[2022-07-14] MEDS: INSULIN -REGULAR HUMAN 50 UNIT/0.5 ML ML SQ SCH ×4 (07:30→21:29)
[2022-07-14] MEDS: CLOPIDOGREL 75 MG TABLET PO SCH (08:37)
[2022-07-14] MEDS: AMLODIPINE 10 MG TAB PO SCH (08:38)
[2022-07-14] MEDS: ASPIRIN EC 81 MG TAB PO SCH (08:38)
[2022-07-14] MEDS: carvediloL 25 MG TAB PO SCH ×2 (08:38→21:28)
[2022-07-14] MEDS: LOSARTAN POTASSIUM 50 MG TABLET PO SCH (08:38)
[2022-07-14] MEDS ORDERED: ENOXAPARIN 40 MG/0.4 ML SQ SCH (09:00)
[2022-07-14] MEDS ORDERED: ATORVASTATIN 40 MG TAB PO SCH (21:00)
[2022-07-14] MEDS ORDERED: MORPHINE 2 MG/ML SYR IV ONE (22:11)
[2022-07-15 04:18] LABS: Absolute Lymphocytes (CBC) 1.6 K/uL (0.7-4.9); Hematocrit 38.1 % (39.6-49.0); Lymphocytes % 31.8 % (15.3-44.8); MPV 7.1 fL (7.6-11.3); RBC Red Blood Cell Count 4.24 M/uL (4.33-5.43)
[2022-07-15 04:36] LABS: Potassium 4.3 mEq/L (3.5-5.1)
--- NOTE | 2022-07-15 04:58 | EKG ---
Test Date: 2022-07-13 Test Time: 22:04:41 Joint Cutter: MB MEASUREMENT RESULTS: Intervals: Rate: 70 AL: 162 QRSD: 98 QT: 366 QTc: 395 [place]: P: 38 AL: 162 QRS: -66 T: -45 INTERPRETIVE STATEMENTS: Normal sinus rhythm Left axis deviation Septal infarct, age undetermined Abnormal ECG Compared to ECG 07/13/2022 18:02:18 Myocardial infarct finding now present T-wave abnormality no longer present Electronically Signed On 07-15-22 04:54:26 CDT by Eduardo Brush
--- NOTE | 2022-07-15 04:58 | EKG ---
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
[2022-07-15] MEDS: CLOPIDOGREL 75 MG TABLET PO SCH (06:39)
[2022-07-15] MEDS: ASPIRIN EC 81 MG TAB PO SCH (06:40)
--- NOTE | 2022-07-15 07:14 | P.PN ---
Date of Service: 07/15/22 Subjective: no new / worsening problems ROS: 10 point ROS as noted above, otherwise negative Physical Exam: GEN: Alert, oriented, NAD HEENT: Normal conjunctiva, sclera anicteric CV: Regular rate and rhythm, no edema Pulm: Nonlabored respirations on room air ABD: Soft, nontender, nondistended Neuro: Normal speech, normal affect vitals reviewed Problem List: Chest pain history CAD with previous CABG [id number] with hyperglycemia Hypertension Hyperlipidemia Chronic pain Chest pain history CAD with previous CABG Had a recent stress test with mild stress induced ischemia Patient was previously on isosorbide but apparently cannot tolerate the medication due to severe headaches troponin negative x3 continue telemetry cardiology consulted cath performed 07/15 continue aspirin, statin, Plavix, carvedilol, losartan, amlodipine [id number] with hyperglycemia ACHS Accu-Chek, sliding scale insulin Hypertension Hyperlipidemia Chronic pain continue home medications VTE: Lovenox Code: Full Dispo: home, ~ 24 hrs
[2022-07-15] MEDS: INSULIN -REGULAR HUMAN 50 UNIT/0.5 ML ML SQ SCH ×2 (07:30→12:51)
[2022-07-15] MEDS ORDERED: INSULIN GLARGINE 100 UNIT/ML SQ ONE (07:30)
[2022-07-15] MEDS: carvediloL 25 MG TAB PO SCH (09:00)
[2022-07-15] MEDS: LOSARTAN POTASSIUM 50 MG TABLET PO SCH (09:00)
[2022-07-15] MEDS: AMLODIPINE 10 MG TAB PO SCH (09:00)
[2022-07-15 09:46] VITALS: O2SAT 100
[2022-07-15] MEDS: HYDROCODONE/APAP 10/325 TAB PO PRN (10:06)
[2022-07-15] MEDS: carisoprodoL 350 MG TAB PO PRN (10:12)
--- NOTE | 2022-07-15 11:38 | P.DS ---
Admission Date: 07/13/22 Discharge Date: 07/15/22 Disposition: ROUTINE DISCHARGE Discharge Condition: GOOD Reason for Admission: Chest pain Consultations: Cardiology - Dr. Oquendo / Dr. Adair Brief History of Present Illness: 57yo M, PMH: severe CAD status post CABG, insulin-dependent diabetes, hypertension, hyperlipidemia Patient presents the emergency department chief complaint of chest pain, he repo rts earlier today at rest he began to have severe left-sided chest pain with paresthesias of the left upper extremity. He was evaluated in the emergency department initial high-sensitivity troponin within normal limits EKG without STEMI criteria, chest x-ray shows mild CHF. He was given a dose of IV Lasix in the emergency department. His last heart catheterization was in December 2021 which showed severe [place] coronary artery disease with patent LAD stent, severe left circumflex and OM1 stenosis likely the culprit for the symptoms and stress test abnormality status post successful PCI to both arteries. Occluded RCA proximally with patent SVG graft to the RCA. Recommendations were to continue aspirin, Plavix, statin. He was also recently admitted on the during that admission he had a stress test which showed mild stress-induced ischemia suspected involving the left ventricular anterior wall and apex, reportedly previously this area was larger no further inpatient work-up was recommended at that time. We will admit patient under observation for ACS rule out Hospital Course: Problem List: Chest pain history CAD with previous CABG [id number] with hyperglycemia Hypertension Hyperlipidemia Chronic pain Patient presented with chest pain. Troponins were negative x3, and mild CHF was noted on x-ray. He was given aspirin, statin, Plavix, carvedilol, losartan, amlodipine. He had a recent stress test with mild stress induced ischemia. Cardiology was consulted. Dr. Adair recommended he have a cardiac catheterization done, and remained unchanged from previous tests. Prior small artery disease is unchanged and not amenable to stenting/surgical intervention Cardiology recommended medical management and to follow up as outpatient in a few weeks. In the past, he was started on Imdur which helped with pain but caused headaches, and was trialed on ranexa in the past. Follow-up PCP 3-[address] Adair in ~1-2 weeks Resume home meds, no changes. Refill prescriptions sent for lasix and carvedilol Physical Exam: GEN: Alert, oriented, NAD HEENT: Normal conjunctiva, sclera anicteric CV: Regular rate and rhythm, no edema Pulm: Nonlabored respirations on room air ABD: Soft, nontender, nondistended Neuro: Normal speech, normal affect Vital Signs/Physical Exam: Temp Pulse Resp BP Pulse Ox 97.6 F 75 18 114/80 99 07/15/22 09:45 07/15/22 09:45 07/15/22 10:06 07/15/22 09:45 07/15/22 10:06 Laboratory Data at Discharge: WBC 5.00 thou/uL (4.3-10.9) 07/15/22 03:46 Hgb 13.1 g/dL (13.6-17.9) L 07/15/22 03:46 Hct 38.1 % (39.6-49.0) L 07/15/22 03:46 Plt Count 191 thou/uL (152-406) 07/15/22 03:46 PT 9.7 SECONDS (9.2-12.8) 07/13/22 17:54 INR 0.80 07/13/22 17:54 Sodium 131 mEq/L (136-145) L 07/15/22 03:46 Potassium 4.3 mEq/L (3.5-5.1) D 07/15/22 03:46 BUN 27 mg/dL (7-18) H 07/15/22 03:46 Creatinine 1.19 mg/dL (0.70-1.30) 07/15/22 03:46 Glucose 380 mg/dL (74-106) H 07/15/22 03:46 Magnesium 1.6 mg/dL (1.6-2.4) 07/13/22 17:54 Total Bilirubin 0.3 mg/dL (0.2-1.0) 07/13/22 17:54 AST 12 U/L (15-37) L 07/13/22 17:54 ALT 26 U/L (16-61) 07/13/22 17:54 Alkaline Phosphatase 72 U/L (45-117) 07/13/22 17:54 Triglycerides 205 mg/dL (<150) H 07/14/22 03:01 Cholesterol 149 mg/dL (<200) 07/14/22 03:01 HDL Cholesterol 43 mg/dL (40-60) 07/14/22 03:01 Cholesterol/HDL Ratio 3.47 07/14/22 03:01 Home Medications: Amlodipine Besylate 10 mg PO DAILY 07/04/22 Aspirin [Ecotrin 81 MG] 81 mg PO DAILY 07/04/22 Atorvastatin Calcium [Lipitor] 40 mg PO BEDTIME 07/04/22 Carisoprodol [Soma] 350 mg PO TID PRN 07/04/22 Clopidogrel Bisulfate [Plavix*] 75 mg PO DAILY 07/04/22 Hydrocodone/Acetaminophen [Hydrocodone-Acetamin 10-325 mg] 1 tab PO Q6H PRN 07/04/22 Insulin Glargine,Hum.rec.anlog [Lantus] 50 units SQ BEDTIME 07/04/22 Losartan Potassium 100 mg PO DAILY 07/04/22 Metformin HCl 1,000 mg PO BIDWM 07/04/22 Liraglutide [Victoza 2-Imer] 1.8 mg SQ DAILY 07/05/22 Furosemide [Lasix*] 40 mg PO DAILY 90 Days #90 tab 07/15/22 carvediloL [Coreg] 25 mg PO BID #90 tab 07/15/22 New Medications: carvediloL [Coreg] 25 mg PO BID #90 tab Furosemide [Lasix*] 40 mg PO DAILY 90 Days #90 tab Physician Discharge Instructions: Patient presented with chest pain. Troponins were negative x3, and mild CHF was noted on x-ray. He was given aspirin, statin, Plavix, carvedilol, losartan, amlodipine. He had a recent stress test with mild stress induced ischemia. Cardiology was consulted. Dr. Adair recommended he have a cardiac catheterization done, and remained unchanged from previous tests. Prior small artery disease is unchanged and not amenable to stenting/surgical intervention Cardiology recommended medical management and to follow up as outpatient in a few weeks. IIn the past, he was started on Imdur which helped with pain but caused headaches, and was trialed on ranexa in the past. Follow-up PCP 3-[address] Adair in ~1-2 weeks Resume home meds, no changes. Refill prescriptions sent for lasix and carvedilol Followup: Felipe Sinha MD [Primary Care Provider] - (call to schedule appointment ) Time spent managing pt's care (in minutes): 45
[2022-07-15 14:22] VITALS: BP 125/70; TEMP 96.9
--- NOTE | 2022-07-15 14:37 | OP ---
Date of Procedure: 07/15/2022 Surgeon: ARIANNE BRAXTON Procedure Performed: Selective angiogram with bypass graft study. Indication: Unstable angina. Access: Right radial artery 6-[place] closed with TR band. Complications: None. Bleeding: Less than 20 mL. Anesthesia: Total sedation time was 30 minutes. Description Of Procedure: After risks, benefits, alternatives were explained, the patient agreed to procedure and signed informed consent. [facility], prepped and draped in the usual sterile fashion. Then, I accessed right radial artery using pediatric micropuncture kit, placed 6-[place] Slender sheath, took 5-[place] 4.0 catheter into ao rtic root, engaged left main and the right coronary artery, and took standard views. Then, I exchang ed for 6-[place] JL4 catheter and engaged the RCA, SVG, and then removed the catheter and sheath, plac ed TR band with good hemostasis. Findings: 1.Left main; large and normal. 2.LAD; proximal segment appears to be normal and the mid segment has about 40% stenosis. Diagonal 1 branch is totally occluded and then the LAD becomes very small with diffuse 50% to 60% stenosis. 3.Left circumflex; large vessel and dominant. OM1 has a stent that is patent. No significant disea se. Has luminal irregularities. 4.RCA; totally occluded proximally with patent SVG graft to the RCA. Conclusion: 1.Totally occluded RCA with patent SVG graft to it. 2.Moderate coronary artery disease with diffuse and small vessels. Recommendation: Medical management. SR/MODL Voice ID: [id number] Report ID: [id number]
--- NOTE | 2022-07-17 16:23 | CON ---
History Of Present Illness: Admitted to Dr. Bragg on July 14, 2022. Mr. Schultz is a patient who is known to have coronary artery disease. He has had CABG in the past an d approximately 9 years ago, his FLOYD closed, LAD was stented. In December of last year, Dr. Adair put a new stent in OM and circumflex. He was here about a week ago. Stress test showed small amount of apical ischemia that we thought was secondary to an occluded diagonal, which is old. We suggeste d medical therapy. Patient was initially hesitant about a catheterization, but comes back to the [facility] with chest pain. OR has been ruled out. EKG is nonspecific. We will plan to take him to the equipment operator/laborer/supervisor on the July 15 to define his coronary anatomy. Patient understands the risk and the benefits of the procedure. He agrees to proceed. His other medical problems including diabetes, hypertensio n, dyslipidemia are stable. Medications: His medications are listed by Dr. Bragg. Allergies: HE HAS NO ALLERGIES. Physical Examination: Examination was done by Dr. Bragg and was normal. Diagnostic Data: Unremarkable. Final Impression: Coronary artery disease, persistent chest pain, positive stress test, recent stent in the OM and the circumflex, old stent in the left anterior descending. Plan: We will plan a catheterization on July 15. If the result is within reasonable limits, we will send him home. PATRICIA/CORTES Voice ID: [id number] Report ID: [id number]
== END 2022-07-15 14:35 | disposition home or self-care (01) ==
LOC: ER 16:58 → 2ND 23:20
PROVIDERS: ADMIT Hospitalist; ATTEND Hospitalist
PROC: B2121ZZ Fluoroscopy of Single Coronary Artery Bypass Graft using Low Osmolar Contrast (ICD-10-PCS; principal; 2022-07-15)
PROC: B2111ZZ Fluoroscopy of Multiple Coronary Arteries using Low Osmolar Contrast (ICD-10-PCS; 2022-07-15)
DX: I25.110 Atherosclerotic heart disease of native coronary artery with unstable angina pectoris (principal); I25.82 Chronic total occlusion of coronary artery; E11.65 Type 2 diabetes mellitus with hyperglycemia; E78.5 Hyperlipidemia, unspecified; I11.0 Hypertensive heart disease with heart failure; I50.9 Heart failure, unspecified; I25.2 Old myocardial infarction; I99.8 Other disorder of circulatory system; G89.29 Other chronic pain; M54.9 Dorsalgia, unspecified; H40.9 Unspecified glaucoma; K21.9 Gastro-esophageal reflux disease without esophagitis; Z95.1 Presence of aortocoronary bypass graft; Z95.5 Presence of coronary angioplasty implant and graft; Z79.82 Long term (current) use of aspirin; Z79.02 Long term (current) use of antithrombotics/antiplatelets; Z79.4 Long term (current) use of insulin; Z79.84 Long term (current) use of oral hypoglycemic drugs; Z79.899 Other long term (current) drug therapy; Z82.49 Family history of ischemic heart disease and other diseases of the circulatory system; Z83.3 Family history of diabetes mellitus; Z82.3 Family history of stroke; Z80.0 Family history of malignant neoplasm of digestive organs
CPT/HCPCS: 36415; 71045; 76937; 80048; 80061; 80076; 82947; 83735; 83880; 84484; 85025; 85610; 93005; 93455; 96374; 96375; 99285; C1893; G0378; J1650; J1815; J1940; J2270; J2405; Q9966

== ENCOUNTER 2022-08-08 15:30 | Emergency (ER) | payer SELFPAY ==
--- OUTSIDE RECORDS SUMMARY | 2022-08-08 15:34 | XMS REPORT | Continuity of Care Document ---
:1965 Author Organization [facility] t Address [address] [place]. [address] [place] [address] Care Team Providers Name Role Phone García DONNELLY, Yolis Nkiru Attending Clinician Derrick Oleary MD Attending Clinician [phone] Issac Faria MD Attending Clinician ISSAC FARIA Attending Clinician Unavailable DERRICK OLEARY Admitting Clinician Unavailable Problems Condition Condition Condition [...] Clinician NO KNOWN [facility] Social History Social Habit Start Date Stop [...] exposure 00:00:00 00:00:00 non-user Medical Center History [facility] 2022-06-09 2022-06-[address] [facility] Housing Places 00:00:00 00:00:00 Medical Ce nter Lived History [facility] 2022-06-09 2022-06-[address] [facility] Housing Homeless 00:00:00 00:00:00 Medical Center Last Year Alcohol intake 2022-06-09 2022-06-[address] [facility] 00:[facility] 00:[facility]00 non-drinker Medical Cente r (finding) History [facility] 2022-06-09 2022-06-09 [address] [facility] [address] [facility] Med 00:00:00 00:00:[address] Sex Assigned At [birth year] [facility] k[facility] 00:00:00 00:00:00 Medical Center Smoking Status Start Date Stop Date Source Never smoked tobacco [facility] Medications Ordered Filled Start Stop Current [...] Take [address] [facility] (SOMA) -19 spasm tablet [facility] 350 MG 13:17: (350 mg Medical tablet 27 total) by Center mouth 4 (four) times daily as needed for Muscle spasms. HYDROcodone Yes pain 1{tbl} Take [address] -acetaminop -19 tablet by [place] (NORCO 13:17: mouth [...] by mouth Center in the morning. amLODIPine 0 Yes 10mg QD Take 1 [facility] [...] 100mg Q.5D Take [address] tartrate -10 06-19 n tablet [facility] (LOPRESSOR) 11:35: 00:00 (100 mg Me dical 100 MG 39 :00 total) by Center tablet mouth in the morning and 1 tablet (100 mg total) before bedtime. metoprolol 2022- No hypertensio 100mg Q.5D Take [address] tartrate -10 06-19 n tablet [facility] (LOPRESSOR) 11:35: 00:00 (100 mg Me dical 100 MG 39 :00 total) by Center tablet mouth in the morning and 1 tablet (100 mg total) before bedtime. metoprolol 2022- No hypertensio 100mg Q.5D Take [address] tartrate -10 06-19 n tablet [facility] (LOPRESSOR) 11:35: 00:00 (100 [...] 25mg Take [address] (COREG) 25 4-19 -18 tablet (25 Tressa kes MG tablet 00:00: 23:59 mg total) Me dical 00 :00 by mouth 2 Center (two) times daily with breakfast and dinner. carvediloL 4- Yes 25mg Take 1 [facility] (COREG) 25 06-10 tablet (25 Tressa kes MG tablet 00:00: [...] kg Systolic blood 2022-06-10 11:20:00 116 mm[Hg] [facility] Diastolic blood 2022-06-10 11:20:00 80 mm[Hg] [facility] Heart rate 2022-06-10 11:20:00 80 /min [facility] Body temperature 2022-06-10 11:20:00 36.11 Ariadna [facility] Respiratory rate 2022-06-10 11:20:00 18 /min [facility] Oxygen saturation in 2022-06-10 11:20:00 99 /min [facility] Arterial blood by Medical Ce nter Pulse oximetry Body height 2022-06-09 06:19:00 165.1 cm [facility] Body weight 2022-06-09 06:19:00 86.183 kg [facility] BMI 2022-06-09 06:19:00 31.62 kg/m2 [facility] Procedures Procedure Date / Time Performed Performing Clinician Eddi e POCT-GLUCOSE METER 2022-06-10 11:04:00 Issac Faria [facility] 2D ECHO W/ DOPPLER 2022-06-10 10:41:59 Derrick Oleary CH, I [facility] (CW/PW/COLOR) [facility] 2D ECHO W/ DOPPLER 2022-06-10 10:41:[address] [facility] (CW/PW/COLOR) [facility] POCT-GLUCOSE METER 2022-06-10 06:08:00 Derrick Oleary CH [facility] BASIC METABOLIC PANEL 2022-06-10 04:38:00 Derrick Oleary [facility] CBC W/PLT COUNT & AUTO 2022-06-10 04:38:00 Derrick Oleary i [facility] MAGNESIUM 2022-06-10 04:38:00 Derrick Oleary [facility] CBC W/PLT COUNT & AUTO 2022-06-10 04:38:[address] [facility] POCT-GLUCOSE METER 2022-06-09 21:02:00 Derrick Oleary [facility] POCT-GLUCOSE METER 2022-06-09 16:07:00 Derrick Oleary [facility] POCT-GLUCOSE METER 2022-06-09 11:45:00 Derrick Oleary [facility] HEMOGLOBIN A1C 2022-06-09 09:33:00 Derrick Oleary [facility] BASIC METABOLIC PANEL 2022-06-09 09:33:00 Derrick Oleary [facility] CBC W/PLT COUNT & AUTO 2022-06-09 09:33:00 Derrick Oleary i [facility] MAGNESIUM 2022-06-09 09:33:00 Derrick Oleary [facility] TROPONIN I 2022-06-09 09:33:00 Derrick Oleary [facility] LIPID PANEL 2022-06-09 09:33:00 Derrick Oleary [facility] B-TYPE NATRIURETIC 2022-06-09 09:33:00 Derrick Oleary [facility] (BNP) [facility] CBC W/PLT COUNT & AUTO 2022-06-09 09:33:[address] [facility] POCT-GLUCOSE METER 2022-06-09 06:00:00 Yolis Mariano [facility] Plan of Care Planned Activity Planned Date Details Comments Source Future Scheduled 2025-06-09 Lipid panel (procedure) [facility] Test 00:00:00 [code = 54363662] Medical Ce nter Future Scheduled 2025-06-09 Lipid panel (procedure) [facility] Test 00:00:00 [code = 43682863] Medical nter Future Scheduled 2025-06-09 Lipid panel (procedure) [facility] Test 00:00:00 [code = 20803590] Medical [facility] Future Scheduled 2023-06-[address] [...] Counseling and Screening (12+)] Future Scheduled 2022-10-[address] [facility] Test 00:00:00 (Season Ended) [code = Medic al Center Influenza Vaccine (Season Ended)] Future Scheduled 2022-10-23 INFLUENZA VACCINE [...] Marta ter VACCINE (#1)] Future Scheduled 1965 Screening for malignant [facility] Test 00:00:00 neoplasm of colon Medical Ce nter (procedure) [code = 646595019] Future Scheduled 1965 Sigmoidoscopy [code = [facility]:00 Sigmoidoscopy] Medical Cente r Future Scheduled 1963 CT Colonography (combo) [facility] 00:00:00 [code = CT Colon[facility] (combo)] Future Scheduled 1963 Screening for malignant [facility] Test 00:00:00 neoplasm of colon Medical Ce nter (procedure) [code = 402446917] Future Scheduled 1965 Screening for malignant [facility] Test 00:00:00 neoplasm of colon Medical Ce nter (procedure) [code = 225984158] Future Scheduled 1965 CT Colonography (combo) [facility] Test 00:00:00 [code = CT Colon[facility] (combo)] Future Scheduled 1963 Screening for malignant [facility] Test 00:00:00 neoplasm of colon Medical Ce nter (procedure) [code = 516650710] Future Scheduled 1965 Screening for malignant [facility] Test 00:00:00 neoplasm of colon Medical Ce nter (procedure) [code = 054680497] Future Scheduled 1965 Screening for malignant [facility] Test 00:00:00 neoplasm of colon Medical Ce nter (procedure) [code = 135572294] Future Scheduled 1965 Screening for malignant [facility] Test 00:00:00 neoplasm of colon Medical Ce nter (procedure) [code = 744115491] Future Scheduled 1965 Sigmoidoscopy [code = [facility] 00:00:00 Sigmoidoscopy] Medical Cente r Future Scheduled 1965 Screening for malignant [facility] Test 00:00:00 neoplasm of colon Medical Ce nter (procedure) [code = 359258979] Future Scheduled 1963 Screening for malignant [facility] Test 00:00:00 neoplasm of colon Medical Ce nter (procedure) [code = 710101143] Future Scheduled 1965 Sigmoidoscopy [code = [facility] 00:00:00 Sigmoidoscopy] Medical Cente r Future Scheduled 1963 CT Colonography (combo) [facility] Test 00:00:00 [code = CT Colonography [facility] (combo)] Future Scheduled 1965 Screening for malignant [facility] Test 00:00:00 neoplasm of colon Medical Ce nter (procedure) [code = 140808998] Future Scheduled 1965 Screening for malignant [facility] Test 00:00:00 neoplasm of colon Medical Ce nter (procedure) [code = 735172762] Future Scheduled 1965 Screening for malignant [facility] Test 00:00:00 neoplasm of colon Medical Ce nter (procedure) [code = 255039601] Encounters Start End Encounter Admission Attending Care Care Encounter Source Date/Time Date/Time Type Type Clinicians Facility Department ID 2022-06-09 2022-06-10 [facility] [id number] 05:46:00 13:08:00 Encounter Derrick Oleary [facility] 2022-06-09 2022-06-10 [facility] [id number] [facility] 05:46:00 13:08:00 Encounter Derrick Oleary [facility] 2022-06-09 2022-06-10 Inpatient ER FARIA, [facility] Cardiology [id number] [facility] 05:46:00 13:08:00 ISSAC 2022-06-09 2022-06-09 Travel [facility] [id number] [facility]00 00[facility]:00 [facility] 2022-06-09 2022-06-09 Travel [facility] [id number] [facility] Results Test Description Test Time Test Comments Results Result Sour e Comments 2D Echo 2022-06-[address] [facility] W/Doppler[facility]CW[facility]PW[facility]C [facility]:17[facility] 2022-06-[address] [facility] W/Doppler(CW/PW/C 11:17:34 [facility] 2D Echo 2022-06-10 Ejection [facility] W/Doppler(CW/PW/C 11:17:34 [facility] POC-Glucose meter 2022-06-10 11:15:49 Test Item Value Reference Range Interpretation Comme [facility] POC-Glucose Meter (test code = 130 mg/dL 70-110 H : [facility] [facility] [address]38) [place] [address]: Probation And Parole Officer/Techni juan ID = [id number] for Ron, Rachel e Lab Interpretation (test code = Abnormal 66318-8) [facility] [id number] 11:15:49 Test Item Value Reference Range Interpretation Comments POC-Glucose Meter (test 130 mg/dL 70-110 H : TE STED AT [facility] code = 1538) [address] [place] [address]: Probation And Parole Officer/Techni juan ID = [id number] for Ron, Rachel e Lab Interpretation (test Abnormal code = 66333-1) [facility] [id number] 11:15:49 Test Item Value Reference Range Interpretation Comments POC-Glucose Meter (test 130 mg/dL 70-110 H : TE STED AT [facility] code = 1538) [address] [place] [address]: Probation And Parole Officer/Techni juan ID = [id number] for Ron, Rachel e Lab Interpretation (test Abnormal code = 00861-5) [facility] [id number] 11:15:49 Test Item Value Reference Range Interpretation Comments POC-GLUCOSE METER 130 mg/dL 70-110 H : TESTED A T [facility] 1317 (BEAKER) (test code [facility], = 1538) [facility] 77 8: Probation And Parole Officer/Techni juan ID = [id number] for Hamzah lar, Martha POCT-GLUCOSE [id number] 06:19:33 Test Item Value Reference Range Interpretation Comments POC-GLUCOSE METER 302 mg/dL 70-110 H : Notified RN/MD: TESTED (BEAKER) (test code AT [facility] [address] = [address]) [facility] [place] [address]: Probation And Parole Officer/Techni juan ID = [id number] for Wallace Nicole [id number] 06:03:09 Test Item Value Reference Range Interpretation Comments MAGNESIUM (BEAKER) (test code = 1.6 mg/dL 1.5-3.0 627) Probation And Parole Officer ID - [id number] ID - [id number] ID - [id number] ID - [id number] BASIC METABOLIC [id number] 06:01:50 Test Item Value Reference Range Interpretation [...] not appl icable for dialysis patien ts Probation And Parole Officer ID - [id number] ID - [id number] ID - [id number] ID - [id number] ID - [id number] ID - [id number] ID - [id number] ID - [id number] ID - [id number] W/PLT COUNT & AUTO [id number] 05:34:17 Test Item Value Reference Range Interpretation [...] PERCENT (BEAKER) (test code = 2801) POCT-GLUCOSE [id number] 21:14:04 Test Item Value Reference Range Interpretation Comments POC-GLUCOSE METER 233 mg/dL 70-110 H : TESTED A T [facility] [address] (BEAKER) (test code [address], = 1538) [place] [address]: Probation And Parole Officer/Techni juan ID = [id number] for Ann Marie Winkler POCT-GLUCOSE [id number] 16:19:49 Test Item Value Reference Range Interpretation Comments POC-GLUCOSE METER 254 mg/dL 70-110 H : TESTED A T [facility] [address] (BEAKER) (test code [address], = 1538) [place] [address]: Probation And Parole Officer/Techni juan ID = [id number] for Christy Valencia POCT-GLUCOSE [id number] 11:57:18 Test Item Value Reference Range Interpretation Comments POC-GLUCOSE METER 253 mg/dL 70-110 H : TESTED A T [facility] [address] (BEAKER) (test code [address], = 1538) [place] [address]: Probation And Parole Officer/Techni juan ID = [id number] for Jennifer Brown TROPONIN [id number] 10:29:04 Test Item Value Reference Range Interpretation [...] failure, acidosis, acute neurological disease, and persistent tachyarrhythmia.Probation And Parole Officer ID - [id number] NATRIURETIC FACTOR (BNP)2022-06-09 10:09:46 Test Item Value Reference Range Interpretation Comments B-TYPE NATRIURETIC PEPTIDE (BEAKER) 145 pg/mL 0-100 H (test code = 700) Probation And Parole Officer ID - [id number] 10:05:21 Test Item Value Reference Range Interpretation [...] Borderline 130-159 High 160-189 Very High >=190 Probation And Parole Officer ID - [id number] ID - [id number] ID - [id number] 10:05:21 Test Item Value Reference Range Interpretation Comments MAGNESIUM (BEAKER) 1.5 mg/dL 1.5-3.0 Specimen slightly (test code = 627) hemolyzed Probation And Parole Officer ID - [id number] ID - [id number] ID - [id number] ID - [id number] METABOLIC [id number] 10:04:06 Test Item Value Reference Range Interpretation [...] (test code = 697) EGFR (BEAKER) 101 Interpretati on of eGFR (test code = mL/min/1.73 values [...] not appl icable for dialysis patien ts Probation And Parole Officer ID - [id number] ID - [id number] ID - [id number] ID - [id number] ID - [id number] ID - [id number] ID - [id number] ID - [id number] ID - [id number] 09:57:19 Test Item Value Reference Range Interpretation Comments HEMOGLOBIN A1C (BEAKER) (test code = 8.4 % 4.3-6.1 H 368) Probation And Parole Officer ID - [id number] W/PLT COUNT & AUTO [id number] 09:47:46 Test Item Value Reference Range Interpretation [...] PERCENT (BEAKER) (test code = 2801) POCT-GLUCOSE [id number] 06:11:39 Test Item Value Reference Range Interpretation Comments POC-GLUCOSE METER 157 mg/dL 70-110 H : TESTED A T [facility] [address] (BEAKER) (test code [facility] [address], = 1538) [facility] 77 [address]: Probation And Parole Officer/Techni juan ID = [id number] for Anastacia Brock
[2022-08-08 15:59] LABS: Absolute Lymphocytes (CBC) 1.5 K/uL (0.7-4.9); Hematocrit 42.9 % (39.6-49.0); Lymphocytes % 26.6 % (15.3-44.8); MPV 7.1 fL (7.6-11.3); RBC Red Blood Cell Count 4.76 M/uL (4.33-5.43)
[2022-08-08] MEDS ORDERED: MORPHINE 4 MG/ML SYR ONE ×2 (16:03→17:50)
[2022-08-08] MEDS ORDERED: ONDANSETRON 4 MG/2 ML VIAL ONE (16:03)
[2022-08-08] MEDS ORDERED: FAMOTIDINE 20 MG/2 ML VIAL IV ONE (16:03)
[2022-08-08 16:17] LABS: ALT/SGPT 24 U/L (16-61); AST/SGOT 18 U/L (15-37); Albumin 3.8 g/dL (3.4-5.0); Alkaline Phosphatase 72 U/L (45-117); BUN Blood Urea Nitrogen 20 mg/dL (7-18); Bicarbonate 23 mEq/L (21-32); Bilirubin Total 0.2 mg/dL (0.2-1.0); Glomerular Filtration Rate 91 ml/min (=/>90); Glucose Level 91 mg/dL (74-106); NT PRO-BNP 496 pg/mL (<125); Potassium 3.7 mEq/L (3.5-5.1); Protein, Total 7.8 g/dL (6.4-8.2); Sodium Level 134 mEq/L (136-145); Troponin High Sensitivity 12.4 pg/mL (<58.9)
[2022-08-08 16:18] LABS: Bilirubin Direct < 0.1 mg/dL (0-0.2); Bilirubin Indirect, Calculated ND mg/dL (0.2-0.8)
--- NOTE | 2022-08-08 16:32 | RAD REPORT ---
EXAM DESCRIPTION: RAD - Chest Single View - 08/08/2022 4:14 pm CLINICAL HISTORY: CHEST PAIN Chest pain. COMPARISON: Chest Single View dated 07/13/2022; Chest Single View dated 07/04/2022; Chest Single View dated 06/08/2022; Chest Single View dated 05/12/2022 FINDINGS: Portable technique limits examination quality. The lungs are grossly clear. The heart is normal in size. No displaced fractures.Sternotomy wires pre sent. IMPRESSION: No acute intrathoracic process suspected.
--- NOTE | 2022-08-08 17:38 | ER ---
Nurse's Notes [facility] Name: Jorge Schultz Jr Age: 57 yrs Sex: Male : 1965 Arrival Date: 08/08/2022 Time: 15:30 Bed 15 Private MD: Diagnosis: Chest pain, unspecified Presentation: 08/08 15:35 Chief complaint: Patient states: I have chest pain, dizziness, blurry vision and SOB kr3 that started about an hour ago. Coronavirus screen: Vaccine status: Patient reports receiving the 2nd dose of the covid vaccine. Ebola Screen: Patient denies travel to an Ebola-affected area in the 21 days before illness onset. Initial Sepsis Screen: Does the patient meet any 2 criteria? No. Patient's initial sepsis screen is negative. Does the patient have a suspected source of infection? No. Patient's initial sepsis screen is negative. Risk Assessment: Do you want to hurt yourself or someone else? Patient reports no desire to harm self or others. Onset of symptoms was August 08, 2022. 15:35 Method Of Arrival: Ambulatory kr3 15:35 Acuity: AALIYAH 3 kr3 Triage Assessment: 15:38 General: Appears in no apparent distress. uncomfortable, Behavior is calm, cooperative, kr3 appropriate for age. Pain: Complains of pain in chest. EENT: No signs and/or symptoms were reported regarding the EENT system. Neuro: Level of Consciousness is awake, alert, obeys commands, Oriented to person, place, time, situation. Cardiovascular: Patient's skin is warm and dry. Respiratory: Airway is patent Respiratory effort is even, unlabored, Respiratory pattern is regular, symmetrical. GI: No signs and/or symptoms were reported involving the gastrointestinal system. : No signs and/or symptoms were reported regarding the genitourinary system. Derm: No signs and/or symptoms reported regarding the dermatologic system. Musculoskeletal: No signs and/or symptoms reported regarding the musculoskeletal system. Historical: - Allergies: 15:37 No Known Allergies; kr3 - PMHx: 15:37 Anxiety; GERD; CAD; Glaucoma; High Cholesterol; Hypertension; IDDM; Myocardial kr3 infarction; - PSHx: 15:37 CABG; cardiac stents x 2; kr3 - Immunization history:: Adult Immunizations not up to date. - Social history:: Smoking status: Patient reports the use of cigarette tobacco products, smokes one-half pack cigarettes per day. - Family history:: not pertinent. - Hospitalizations: : No recent hospitalization is reported. Screenin:45 [facility] ED Fall Risk Assessment (Adult) History of falling in the last 3 months, ko1 including since admission No falls in past 3 months (0 pts) Confusion or Disorientation No (0 pts) Intoxicated or Sedated No (0 pts) Impaired Gait No (0 pts) Mobility Assist Device Used No (0 pt) Altered Elimination No (0 pt) Score/Fall Risk Level 0 - 2 = Low Risk Oriented to surroundings, Maintained a safe environment, Educated pt \T\ family on fall prevention, incl call for assistance when getting out of bed, Assessed \T\ reinforced patient's understanding of fall precautions, Provided non-skid footwear, Hourly rounding (assess needs \T\ fall precautionary measures) done, Used ambulatory aids as needed (educated on \T\ assisted with), Used gait belt as appropriate. Abuse screen: Denies threats or abuse. Denies injuries from another. Nutritional screening: No deficits noted. Tuberculosis screening: No symptoms or risk factors identified. Assessment: 15:45 General: Appears in no apparent distress. uncomfortable, Behavior is calm, cooperative, ko1 appropriate for age. Pain: Complains of pain in chest Pain does not radiate. Pain began gradually. Neuro: No deficits noted. Cardiovascular: Chest pain is described as Pain is 6 out of 10 on a pain scale. Respiratory: Reports shortness of breath on exertion. GI: No deficits noted. : No deficits noted. EENT: No deficits noted. Derm: No deficits noted. Musculoskeletal: No deficits noted. Vital Signs: 15:35 BP 135 / 95; Pulse 72; Resp 18; Temp 97.5(TE); Pulse Ox 100% on R/A; Weight 86.18 kg; kr3 Height 5 ft. 5 in. ; Pain 7/10; 15:45 BP 131 / 86; Pulse 80; Resp 16; Pulse Ox 99% on R/A; ko1 17:48 BP 135 / 88; Pulse 82; Resp 16; Pulse Ox 98% ; ko1 15:35 Body Mass Index 31.62 (86.18 kg, 165.1 cm) kr3 15:35 Pain Scale: Adult kr3 ED Course: 15:31 Patient arrived in ED. ts1 15:32 Tee Bragg MD is Attending Physician. rn 15:37 Kayla Webb, RITA is Primary Nurse. ko1 15:37 Triage completed. kr3 15:39 Arm band placed on right wrist. Patient placed in an exam room, on a stretcher. kr3 15:45 Patient has correct armband on for positive identification. Bed in low position. Call ko1 light in reach. Side rails up X 1. Client placed on continuous cardiac and pulse oximetry monitoring. NIBP monitoring applied. residential monitor on. Door closed. Noise minimized. Lights dimmed. Warm blanket given. 15:45 Patient maintains SpO2 saturation greater than 95% on room air. ko1 15:51 Inserted saline lock: 20 gauge in right antecubital area, using aseptic technique. sg5 Blood collected. 15:52 Basic Metabolic Panel Sent. ko1 15:52 CBC with Diff Sent. ko1 15:52 LFT's Sent. ko1 15:52 NT PRO-BNP Sent. ko1 15:52 Troponin HS Sent. ko1 16:16 XRAY Chest (1 view) In Process Unspecified. EDMS 17:37 Jose Maria dAair MD is Referral Physician. rn 17:48 No provider procedures requiring assistance completed. IV discontinued, intact, ko1 bleeding controlled, No redness/swelling at site. Pressure dressing applied. Administered Medications: 15:57 Drug: Famotidine IVP 20 mg Route: IVP; Site: right antecubital; ko1 17:35 Follow up: Response: No adverse reaction ko1 15:59 Drug: Ondansetron IVP 4 mg Route: IVP; Site: right antecubital; ko1 17:34 Follow up: Response: No adverse reaction ko1 16:05 Drug: morphine IVP or IV 4 mg Route: IVP; Infused Over: 4 mins; Site: right antecubital;ko1 17:35 Follow up: Response: No adverse reaction; Pain is decreased ko1 17:42 Drug: morphine IVP or IV 4 mg Route: IVP; Infused Over: 4 mins; Site: right antecubital;ko1 Medication: 15:45 VIS not applicable for this client. ko1 Outcome: 17:38 Discharge ordered by . rn 17:48 Discharged to home ambulatory. ko1 17:48 Condition: improved 17:48 Discharge instructions given to patient, Instructed on discharge instructions, follow up and referral plans. Demonstrated understanding of instructions, medications. 18:03 Patient left the ED. ko1 Signatures: Dispatcher [employer] EDMS Tee Bragg MD MD rn Reid, Kelley RN RN oxana3 Kayla Webb RN RN ko1 Maria Elena Guzman RN RN sg5 Maia Bernstein PAS PAS ts1
--- NOTE | 2022-08-08 17:38 | EDPHYS ---
Physician Documentation [facility] Name: Jorge Schultz Jr Age: 57 yrs Sex: Male : 1965 Arrival Date: 08/08/2022 Time: 15:30 Bed 15 Private MD: ED Physician Tee Bragg HPI: 08/08 15:55 This 57 yrs old Male presents to ER via Ambulatory with complaints of Chest rn Pain, sob. 15:55 The patient or guardian reports chest pain that is located primarily in the substernal rn area. Onset: today. The pain does not radiate. Associated signs and symptoms: Pertinent positives: shortness of breath, Pertinent negatives: abdominal pain, cough, diaphoresis, dizziness, lower extremity swelling, near syncope, palpitations, syncope, vomiting. The chest pain is described as aching, dull, a heaviness. Duration: The patient or guardian reports multiple episodes, that are intermittent. Modifying factors: The symptoms are alleviated by nothing. the symptoms are aggravated by nothing. Severity of pain: At its worst the pain was mild in the emergency department the pain is unchanged. The patient has experienced similar episodes in the past. The patient has been recently been admitted at [facility]. Pt reports known CAD with CABG in past, last cath 1 month ago, told had several partial blockages that are causing his pain but too small to stent. Reports started having chest pain again today following breakfast, does not feel like acid reflux, no trauma, doesn't feel ill. No fever. Reports mild sob. Taking lasix. . Historical: - Allergies: 15:37 No Known Allergies; kr3 - PMHx: 15:37 Anxiety; GERD; CAD; Glaucoma; High Cholesterol; Hypertension; IDDM; Myocardial kr3 infarction; - PSHx: 15:37 CABG; cardiac stents x 2; kr3 - Immunization history:: Adult Immunizations not up to date. - Social history:: Smoking status: Patient reports the use of cigarette tobacco products, smokes one-half pack cigarettes per day. - Family history:: not pertinent. - Hospitalizations: : No recent hospitalization is reported. ROS: 15:55 Constitutional: Negative for fever, chills, and weight loss, Cardiovascular: Negative rn for chest pain, palpitations, and edema, Respiratory: Negative for shortness of breath, cough, wheezing, and pleuritic chest pain, Abdomen/GI: Negative for abdominal pain, nausea, vomiting, diarrhea, and constipation, MS/Extremity: Negative for injury and deformity, Skin: Negative for injury, rash, and discoloration, Neuro: Negative for headache, numbness, tingling, and seizure. Exam: 15:55 Constitutional: This is a well developed, well nourished patient who is awake, alert, rn and in no acute distress. Head/Face: Normocephalic, atraumatic. Cardiovascular: Regular rate and rhythm. No pulse deficits. Respiratory: No increased work of breathing, no retractions or nasal flaring. Abdomen/GI: Soft, non-tender Skin: Warm, dry MS/ Extremity: Pulses equal, no cyanosis. Neurovascular intact. Full, normal range of motion. Equal circumference. Neuro: Awake and alert, GCS 15 17:42 ECG was reviewed by the Attending Physician. rn Vital Signs: 15:35 BP 135 / 95; Pulse 72; Resp 18; Temp 97.5(TE); Pulse Ox 100% on R/A; Weight 86.18 kg; kr3 Height 5 ft. 5 in. ; Pain 7/10; 15:45 BP 131 / 86; Pulse 80; Resp 16; Pulse Ox 99% on R/A; ko1 17:48 BP 135 / 88; Pulse 82; Resp 16; Pulse Ox 98% ; ko1 15:35 Body Mass Index 31.62 (86.18 kg, 165.1 cm) kr3 15:35 Pain Scale: Adult kr3 MDM: 15:32 Patient medically screened. rn 17:35 Differential diagnosis: acute myocardial infarction, acute pericarditis, anxiety, rn coronary artery disease chest wall pain, congestive heart failure costochondritis, esophagitis, gastritis, pericarditis, pleurisy, pneumothorax, stable angina, unstable angina. Data reviewed: vital signs, nurses notes, lab test result(s), EKG, radiologic studies, plain films, and as a result, I will discharge patient. Counseling: I had a detailed discussion with the patient and/or guardian regarding: the historical points, exam findings, and any diagnostic results supporting the discharge/admit diagnosis, lab results, radiology results, the need for outpatient follow up, to return to the emergency department if symptoms worsen or persist or if there are any questions or concerns that arise at home. Response to treatment: the patient's symptoms have markedly improved after treatment. 17:36 Special discussion: Based on the patient's history, exam, and Dx evaluation, there is rn no indication for emergent intervention or inpatient Tx. It is understood by the patient/guardian that if the Sx's persist or worsen they need to return immediately for re-evaluation. I discussed with the patient/guardian in detail that at this point there is no indication for admission to the hospital. It is understood, however, that if the symptoms persist or worsen the patient needs to return immediately for re-evaluation. Based on the history and exam findings, there is no indication for further emergent testing or inpatient evaluation. I discussed with the patient/guardian the need to see the immigration lawyer for further evaluation of the symptoms. I discussed with the patient/guardian the need to see the primary care provider for further evaluation of the symptoms. ED course: Pt with known CAD, cath last month, unable to stent, meds changed, trop neg, cxr no acute findings, stable vitals, BNP only 400s, laying in bed watching tv and device with airpods on, appears comfortable. Will dc home with return precautions. . 08/08 15:45 Order name: Basic Metabolic Panel; Complete Time: 16:40 08/08 15:45 Order name: CBC with Diff; Complete Time: 16:18 08/08 15:45 Order name: LFT's; Complete Time: 16:40 08/08 15:45 Order name: NT PRO-BNP; Complete Time: 16:40 08/08 15:45 Order name: Troponin HS; Complete Time: 16:40 08/08 15:45 Order name: XRAY Chest (1 view); Complete Time: 16:40 08/08 15:45 Order name: EKG; Complete Time: 15:46 08/08 15:45 Order name: Cardiac monitoring; Complete Time: 15:50 08/08 15:45 Order name: EKG - Nurse/Tech; Complete Time: 15:50 08/08 15:45 Order name: IV Saline Lock; Complete Time: 15:50 08/08 15:45 Order name: Labs collected and sent; Complete Time: 15:50 08/08 15:45 Order name: O2 Per Protocol; Complete Time: 15:52 08/08 15:45 Order name: O2 Sat Monitoring; Complete Time: 15:52 rn EC:42 Rate is 69 beats/min. Rhythm is regular. Left axis deviation noted. QRS is positive in rn lead I and negative in lead aVF. VA interval is normal. QRS interval is normal. QT interval is normal. T waves are Normal. No ST changes noted. Clinical impression: NSR w/ Non-specific ST/T Changes. Interpreted by me. Reviewed by me. Administered Medications: 15:57 Drug: Famotidine IVP 20 mg Route: IVP; Site: right antecubital; ko1 17:35 Follow up: Response: No adverse reaction ko1 15:59 Drug: Ondansetron IVP 4 mg Route: IVP; Site: right antecubital; ko1 17:34 Follow up: Response: No adverse reaction ko1 16:05 Drug: morphine IVP or IV 4 mg Route: IVP; Infused Over: 4 mins; Site: right antecubital;ko1 17:35 Follow up: Response: No adverse reaction; Pain is decreased ko1 17:42 Drug: morphine IVP or IV 4 mg Route: IVP; Infused Over: 4 mins; Site: right antecubital;ko1 Disposition Summary: 08/08/22 17:38 Discharge Ordered Location: Home rn Problem: an ongoing problem rn Symptoms: have improved rn Condition: Stable rn Diagnosis - Chest pain, unspecified rn Followup: rn - With: Jose Maria Adair MD - When: As needed - Reason: Recheck today's complaints, Re-evaluation by your physician Discharge Instructions: - Discharge Summary Sheet rn - Nonspecific Chest Pain, Adult rn Forms: - Medication Reconciliation Form rn - Thank You Letter rn - Antibiotic trademark attorney - Prescription Opioid Use rn Signatures: Dispatcher [employer] Tee Simpson MD MD rn Reid, Kelley, RN RN [email or web address] Kayla Webb RN RN ko1
[2022-08-08 18:15] VITALS: TEMP 97.5
[2022-08-08 18:31] VITALS: BP 135/88; O2SAT 98
--- NOTE | 2022-08-10 17:53 | EKG ---
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
== END 2022-08-08 18:03 | disposition home or self-care (01) ==
LOC: ER 15:30
DX: R07.9 Chest pain, unspecified (principal); I10 Essential (primary) hypertension; I25.2 Old myocardial infarction; F17.210 Nicotine dependence, cigarettes, uncomplicated; Z95.1 Presence of aortocoronary bypass graft; Z95.818 Presence of other cardiac implants and grafts
CPT/HCPCS: 36415; 71045; 80048; 80076; 83880; 84484; 85025; 93005; 96374; 96375; 99285; J2405

== ENCOUNTER 2022-10-23 13:52 | Emergency (ER) | payer SELFPAY ==
--- OUTSIDE RECORDS SUMMARY | 2022-10-23 14:04 | XMS REPORT | Continuity of Care Document ---
:1965 Author Organization [facility] t Address [address] [facility] [address] [place] [place] [address] Care Team Providers Name Role Phone ISSAC CORRALES Attending Clinician Unavailable García DONNELLY, Yolis Nkiru Attending Clinician Derrick Laureano MD Attending Clinician [phone] Issac Corrales MD Attending Clinician DERRICK LAUREANO Admitting Clinician Unavailable Problems Condition [...] Clinician NO KNOWN Allergy Active [facility] Social History Social Habit Start Date Stop Date Quantity Comments Source History SDOH [facility] Transport Non-Med Medical Center History SDOH [facility] Housing Unable to Medical Center Pay Exposure to 2022-05-30 2022-06-[address] [facility] SARS-CoV-2 (event) 00:00:00 09:35:00 [facility] Tobacco use and 2022-06-09 2022-06-[address] [facility] exposure 00:00:00 00:00:00 non-user Medical Center History [facility] 2022-06-09 2022-06-[address] [facility] Housing Places 00:00:00 00:00:00 Medical Ce nter Lived History [facility] 2022-06-09 2022-06-[address] [facility] Housing Homeless 00:00:00 00:00:00 Medical Center Last Year Alcohol intake 2022-06-09 2022-06-[address] [facility] 00:[facility] 00[facility]00 non-drinker Medical Cente r (finding) History [facility] 2022-06-09 2022-06-[address] [facility] Transport Med 00:00:00 00:00:[address] Sex Assigned At [address] [facility] 00:00:00 00:[facility]:00 Medical Center Smoking Status Start Date Stop Date Source Never smoked tobacco [facility] Medications Ordered Filled Start Stop Current Ordering Indication Dosage Frequency Signature Comments Components Source Medication Medication Date Date Medication? Clinician (SIG) Name Name furosemide 2023- No 40mg QD Take [address] [facility] (LASIX) 40 4-20 04-19 tablet (40 [facility] MG tablet 00:00: 23:59 mg total) Me dical 00 :00 by mouth Center in the morning. furosemide 2023- No 40mg QD Take [address] (LASIX) 40 4-20 04-19 tablet (40 [facility] MG tablet 00:00: 23:59 mg total) Me dical 00 :00 by mouth Center in the morning. furosemide 2023- No 40mg QD Take [address] (LASIX) 40 4-20 04-19 tablet (40 [facility] MG tablet 00:00: 23:59 mg total) Me dical 00 :00 by mouth Center in the morning. furosemide 2023- No 40mg QD Take [address] [facility] (LASIX) 40 4-20 04-19 tablet (40 [facility] MG tablet 00:00: 23:59 mg total) Me dical 00 :00 by mouth Center in the morning. furosemide 2023- No 40mg QD Take [address] (LASIX) [...] 100mg QD Take [address] (COZAAR) -19 n tablet [facility]ukes 100 MG 13:17: (100 [...] 100mg Q.5D Take [address] tartrate 4-19 04-19 n tablet Lukes (LOPRESSOR) 11:35: 00:00 (100 mg Me dical 100 MG 39 :00 total) by Center tablet mouth in the morning and 1 tablet (100 mg total) before bedtime. metoprolol 2022- No hypertensio 100mg Q.5D Take [address] tartrate 4-19 04-19 n tablet [facility]ukes (LOPRESSOR) 11:35: 00:00 (100 mg Me dical 100 MG 39 :00 total) by Center tablet mouth in the morning and 1 tablet (100 mg total) before bedtime. metoprolol 2022- No hypertensio 100mg Q.5D Take [address] tartrate 4-19 04-19 n tablet [facility]ukes (LOPRESSOR) 11:35: 00:00 (100 mg Me dical 100 MG 39 :00 total) by Center tablet mouth in the morning and 1 tablet (100 mg total) before bedtime. metoprolol 2022- No hypertensio 100mg Q.5D Take [address] tartrate 4-19 04-19 n tablet Lukes (LOPRESSOR) 11:35: 00:00 (100 mg Me dical 100 MG 39 :00 total) by Center tablet mouth in the morning and 1 tablet (100 mg total) before bedtime. metoprolol 2022- No hypertensio 100mg Q.5D Take [address] tartrate 4-19 04-19 n tablet Lukes (LOPRESSOR) 11:35: 00:00 (100 mg Me dical 100 MG 39 :00 total) by Center tablet mouth in the morning and 1 tablet (100 mg total) before bedtime. carvediloL 2023- No 25mg Take [address] [facility] [address] (COREG) 25 4-19 04-18 tablet (25 [facility] MG tablet 00:00: 23:59 mg total) Me dical 00 :00 by mouth 2 Center (two) times daily with breakfast and dinner. carvediloL 2023- No 25mg Take [address] [facility] (COREG) 25 4-19 04-18 tablet (25 [facility] MG tablet 00:00: 23:59 mg total) Me dical 00 :00 by mouth 2 Center (two) times daily with breakfast and dinner. carvediloL 2023- No 25mg Take [address] [facility] (COREG) 25 4-19 04-18 tablet (25 [facility] MG tablet 00:00: 23:59 mg total) Me dical 00 :00 by mouth 2 Center (two) times daily with breakfast and dinner. carvediloL 2023- No 25mg Take [address] [facility] (COREG) 25 06-10-18 tablet (25 [facility] MG tablet 00:00: 23:59 mg total) Me dical 00 :00 by mouth 2 Center (two) times daily with breakfast and dinner. carvediloL 2023- No 25mg Take [address] [facility] (COREG) 25 [...] kg Systolic blood 2022-06-10 11:20:00 116 mm[Hg] [facility] Diastolic blood 2022-06-10 11:20:00 80 mm[Hg] [facility] Heart rate 2022-06-10 11:20:00 80 /min [facility] Body temperature 2022-06-10 11:20:00 36.11 [facility] Respiratory rate 2022-06-10 11:20:00 18 /min [facility] Oxygen saturation in 2022-06-10 11:20:00 99 /min [facility] Arterial blood by Medical Ce nter Pulse oximetry Body height 2022-06-09 06:19:00 165.1 cm [facility] Body weight 2022-06-09 06:19:00 86.183 kg [facility] BMI 2022-06-09 06:19:00 31.62 kg/m2 [facility] Procedures Procedure Date / Time Performed Performing Clinician Sour e POCT-GLUCOSE METER 2022-06-10 11:04:00 Issac Corrales [facility] 2D ECHO W/ DOPPLER 2022-06-10 10:41:59 Derrick Laureano [facility] (CW/PW/COLOR) [facility] 2D ECHO W/ DOPPLER 2022-06-10 10:41:59 Derrick Laureano [facility] (CW/PW/COLOR) [facility] POCT-GLUCOSE METER 2022-06-10 06:08:00 Derrick Laureano I [facility] BASIC METABOLIC PANEL 2022-06-10 04:38:00 Derrick Laureano [facility] CBC W/PLT COUNT & AUTO 2022-06-10 04:38:00 Derrick Laureano i [facility] MAGNESIUM 2022-06-10 04:38:00 Derrick Laureano [facility] CBC W/PLT COUNT & AUTO 2022-06-10 04:38:00 Derrick Laureano i [facility] POCT-GLUCOSE METER 2022-06-09 21:02:00 Derrick Laureano [facility] POCT-GLUCOSE METER 2022-06-09 16:07:00 Derrick Laureano [facility] POCT-GLUCOSE METER 2022-06-09 11:45:00 Derrick Laureano [facility] HEMOGLOBIN A1C 2022-06-09 09:33:00 Derrick Laureano [facility] BASIC METABOLIC PANEL 2022-06-09 09:33:00 Derrick Laureano [facility] CBC W/PLT COUNT & AUTO 2022-06-09 09:33:00 Derrick Laureano i [facility] MAGNESIUM 2022-06-09 09:33:00 Derrick Laureano [facility] TROPONIN I 2022-06-09 09:33:00 Derrick Laureano [facility] LIPID PANEL 2022-06-09 09:33:00 Derrick Laureano [facility] B-TYPE NATRIURETIC 2022-06-09 09:33:00 Shellymartin Derrick Mata [facility] FACTOR (BNP) [facility] CBC W/PLT COUNT & AUTO 2022-06-09 09:33:00 Shellymartin Derrick De Paz i [facility] POCT-GLUCOSE METER 2022-06-09 06:00:00 Yolis Mariano [facility] Plan of Care Planned Activity Planned Date Details Comments Source Future Scheduled 2025-06-09 Lipid panel (procedure) [facility] Test 00:00:00 [code = 39068185] Medical Ce nter Future Scheduled 2025-06-09 Lipid panel (procedure) [facility] Test 00:00:00 [code = 89418590] Medical Ce nter Future Scheduled 2025-06-09 Lipid panel (procedure) [facility] Test 00:00:00 [code = 40377100] Medical Ce nter Future Scheduled 2025-06-09 Lipid panel (procedure) [facility] Test 00:00:00 [code = 26200874] Medical Ce nter Future Scheduled 2025-06-09 Lipid panel (procedure) [facility] Test 00:00:00 [code = 04446020] Medical Ce nter Future Scheduled 2023-06-[address] [facility] Test 00:00:00 Counseling and Screening [facility] (12[facility] [code = Tobacco Cessation Counseling and Screening (12+)] Future Scheduled 2023-06-[address] [facility] Test 00:00:00 Counseling and Screening Med ical Center (12+) [code = Tobacco Cessation Counseling and Screening (12+)] Future Scheduled 2023-06-[address] [facility] Test 00:00:00 Counseling and Screening Med ical Center (12+) [code = Tobacco Cessation Counseling and Screening (12+)] Future Scheduled 2023-06-[address] [facility] Test 00:00:00 Counseling and Screening Med ical Center (12+) [code = Tobacco Cessation Counseling and Screening (12+)] Future Scheduled 2023-06-[address] [facility] Test 00:00:00 Counseling and Screening [facility]12[facility] [code = Tobacco Cessation Counseling and Screening (12+)] Future Scheduled 2022-10-23 INFLUENZA VACCINE (Season [facility] Test 00:00:00 Ended) [code = INFLUENZA Med ical Center VACCINE (Season Ended)] Future Scheduled 2022-10-23 Influenza Vaccine (Season [facility] Test 00:00:00 Ended) [code = Influenza Med ical Center Vaccine (Season Ended)] Future Scheduled 2022-10-23 Influenza Vaccine (#1) [facility] 00:[facility]00 [code = Influenza Vaccine Me dical Center (#1)] Future Scheduled 2022-10-23 INFLUENZA VACCINE (Season [facility] Test 00:00:00 Ended) [code = INFLUENZA Med ical Center VACCINE (Season Ended)] Future Scheduled 2022-10-23 Influenza Vaccine (#1) [facility] 00:00:00 [code = Influenza Vaccine Me dical Center (#1)] Future Scheduled 2022-02-[address] [facility] Test 00:00:00 (12+) [code = DEPRESSION Med ical Center SCREENING (12+)] Future Scheduled 2022-02-[address] [facility] Test 00:00:00 (12+) [code = DEPRESSION Med ical Center SCREENING (12+)] Future Scheduled 2022-02-[address] [facility] Test 00:00:00 (12+) [code = DEPRESSION Med ical Center SCREENING (12+)] Future Scheduled 2022-02-[address] [facility] Test 00:00:00 (12+) [code = DEPRESSION Med ical Center SCREENING (12+)] Future Scheduled 2022-02-[address] [facility] Test 00:00:00 (12+) [code = DEPRESSION Med ical Center SCREENING (12+)] Future Scheduled 2013 SHINGLES VACCINES [...] of 2)] Future Scheduled 1982 DTAP/TDAP/TD VACCINES ([address] [facility] Test 00:00:00 - Tdap) [code = Medical Cent er DTAP/TDAP/TD VACCINES (1 - Tdap)] Future Scheduled 1982 DTAP/TDAP/TD VACCINES ([address] [facility] Test 00:00:00 - Tdap) [code = Medical Cent er DTAP/TDAP/TD VACCINES (1 - Tdap)] Future Scheduled 1982 DTAP/TDAP/TD VACCINES ([address] [facility] Test 00:00:00 - Tdap) [code = Medical Cent er DTAP/TDAP/TD VACCINES (1 - Tdap)] Future Scheduled 1982 DTAP/TDAP/TD VACCINES ([address] [facility] Test 00:00:00 - Tdap) [code = Medical Cent er DTAP/TDAP/TD VACCINES (1 - Tdap)] Future Scheduled 1982 DTAP/TDAP/TD VACCINES ([address] [facility] Test 00:00:00 - Tdap) [code = Medical Cent er DTAP/TDAP/TD VACCINES (1 - Tdap)] Future Scheduled [...] HEPATITIS C Medical Center SCREENING] Future Scheduled [address] [facility] 00:00:00 virus screening Medical Cent er (procedure) [code = 245616061] Future Scheduled [address] [facility] 00:00:00 virus screening Medical Cent er (procedure) [code = 485934979] Future Scheduled 1965 COVID-19 VACCINE (#1) [facility] 00:[facility]00 [code = COVID-19 VACCINE Med ical Center (#1)] Future Scheduled 1963 COVID-19 VACCINE (#1) [facility] 00:00:00 [code = COVID-19 VACCINE Med ical Center (#1)] Future Scheduled 1963 COVID-19 VACCINE (#1) [facility] 00:00:00 [code = COVID-19 VACCINE Med ical Center (#1)] Future Scheduled 1963 COVID-19 VACCINE (#1) [facility] 00:00:00 [code = COVID-19 VACCINE Med ical Center (#1)] Future Scheduled 1963 COVID-19 VACCINE (#1) [facility] 00:00:00 [code = COVID-19 VACCINE Med ical Center (#1)] Future Scheduled 1963 Screening for malignant [facility] Test 00:00:00 neoplasm of colon Medical Ce nter (procedure) [code = 497314405] Future Scheduled 1963 Screening for malignant [facility] Test 00:00:00 neoplasm of colon Medical Ce nter (procedure) [code = 185247205] Future Scheduled 1965 Sigmoidoscopy [code = [facility] 00:[facility] Sigmoidoscopy] Medical Cente r Future Scheduled 1963 CT Colonography (combo) [facility] 00:00:00 [code = CT Colonography Medi [facility] Center (combo)] Future Scheduled 1963 Screening for malignant [facility] Test 00:00:00 neoplasm of colon Medical Ce nter (procedure) [code = 591729486] Future Scheduled 1963 Screening for malignant [facility] Test 00:00:00 neoplasm of colon Medical Ce nter (procedure) [code = 315430686] Future Scheduled 1963 Screening for malignant [facility] Test 00:00:00 neoplasm of colon Medical Ce nter (procedure) [code = 489068146] Future Scheduled 1963 Screening for malignant [facility] Test 00:00:00 neoplasm of colon Medical Ce nter (procedure) [code = 133699114] Future Scheduled 1965 Sigmoidoscopy [code = [facility] 00:[facility] Sigmoidoscopy] Medical Cente r Future Scheduled 1963 CT Colonography (combo) [facility] 00:00:00 [code = CT Colonography [facility] [place] [facility] (combo)] Future Scheduled 1963 Screening for malignant [facility] Test 00:00:00 neoplasm of colon Medical Ce nter (procedure) [code = 008486132] Future Scheduled 1963 Screening for malignant [facility] Test 00:00:00 neoplasm of colon Medical Ce nter (procedure) [code = 643610531] Future Scheduled 1963 Screening for malignant [facility] Test 00:00:00 neoplasm of colon Medical Ce nter (procedure) [code = 376187122] Future Scheduled 1963 Screening for malignant [facility] Test 00:00:00 neoplasm of colon Medical Ce nter (procedure) [code = 478945245] Future Scheduled 1965 Sigmoidoscopy [code = [facility] 00:00:[facility] Sigmoidoscopy] Medical Cente r Future Scheduled 1963 CT Colonography (combo) [facility] 00:00:00 [code = CT Colonography [facility] [place] [facility] (combo)] Future Scheduled 1963 Screening for malignant [facility] Test 00:00:00 neoplasm of colon Medical Ce nter (procedure) [code = 484194186] Future Scheduled 1963 Screening for malignant [facility] Test 00:00:00 neoplasm of colon Medical Ce nter (procedure) [code = 928640609] Future Scheduled 1963 Screening for malignant [facility] Test 00:00:00 neoplasm of colon Medical Ce nter (procedure) [code = 829824636] Future Scheduled 1963 Screening for malignant [facility] Test 00:00:00 neoplasm of colon Medical Ce nter (procedure) [code = 029578203] Future Scheduled 1965 Sigmoidoscopy [code = [facility] 00:00:00 Sigmoidoscopy] Medical Cente r Future Scheduled 1963 CT Colonography (combo) [facility] 00:00:00 [code = CT Colonography [facility] [place] [facility] (combo)] Future Scheduled 1963 Screening for malignant [facility] Test 00:00:00 neoplasm of colon Medical Ce nter (procedure) [code = 082297891] Future Scheduled 1963 Screening for malignant [facility] Test 00:00:00 neoplasm of colon Medical Ce nter (procedure) [code = 519406356] Future Scheduled 1963 CT Colonography (combo) [facility] 00:00:00 [code = CT Colonography [facility] [place] [facility] (combo)] Future Scheduled 1963 Screening for malignant [facility] Test 00:00:00 neoplasm of colon Medical Ce nter (procedure) [code = 672665193] Future Scheduled 1963 Screening for malignant [facility] Test 00:00:00 neoplasm of colon Medical Ce nter (procedure) [code = 618111501] Future Scheduled 1963 Screening for malignant [facility] Test 00:00:00 neoplasm of colon Medical Ce nter (procedure) [code = 299748049] Future Scheduled 1963 Screening for malignant [facility] Test 00:00:00 neoplasm of colon Medical Ce nter (procedure) [code = 224368177] Future Scheduled 1965 Sigmoidoscopy [code = [facility] 00:[facility] Sigmoidoscopy] Medical Cente r Encounters Start End Encounter Admission Attending Care Care Encounter Source Date/Time Date/Time Type Type Clinicians Facility Department ID 2022-06-09 2022-06-10 Inpatient ER MARK CORRALES Cardiology [id number] [facility] 05:46:00 13:08:00 ISSAC 2022-06-09 2022-06-10 [facility] [id number] [facility] 05:46:00 13:08:00 [facility] 2022-06-10 [facility] Yolis Love [facility] [id number] [facility] 05:46:00 13:08:00 Encounter Derrick Laureano Issac Bhatia [facility] 2022-06-09 2022-06-09 Travel [facility] [id number] [facility]00 00:00:00 [facility] 2022-06-09 2022-06-09 Travel [facility] [id number] [facility] 00:[facility]00 [facility] Results Test Description Test Time Test Comments Results Result [facility] e Comments 2D Echo 2022-06-[address] [facility] W/Doppler(CW/PW/C 11:17:34 FractionSLE ECHO Medical olor) [facility] 2D Echo 2022-06-[address] [facility] W/Doppler(CW/PW/C 11:17:34 FractionSLE ECHO Medical olor) [facility] 2D Echo 2022-06-[address] [facility] W/Doppler(CW/PW/C 11:17:34 FractionSLE ECHO Medical olor) [facility] 2D Echo 2022-06-[address] [facility] W/Doppler[facility]CW[facility]PW[facility]:17[facility] 2D Echo 2022-06-[address] [facility] W/Doppler(CW/PW/C 11:17:34 FractionSLE ECHO Medical olor) [facility] POC-Glucose meter 2022-06-10 11:15:49 Test Item Value Reference Range Interpretation Comme [facility] POC-Glucose Meter (test code = 130 mg/dL 70-110 H : TESTED AT [facility] [address] [place] [address]) [facility] [id number]: Physical Medicine Physician/Techni juan ID = [id number] for Rachel Ron Lab Interpretation (test code = Abnormal 01771-6) [facility] [id number] 11:15:49 Test Item Value Reference Range Interpretation Comments POC-Glucose Meter (test 130 mg/dL 70-110 H : [facility] [address] [place], [place] [address]: Physical Medicine Physician/Techni juan ID = [id number] for Ron, Rachel e Lab Interpretation (test Abnormal code = 39824-7) [facility] [id number] 11:15:49 Test Item Value Reference Range Interpretation Comments POC-Glucose Meter (test 130 mg/dL 70-110 H : [facility]38) [address] [place], [place] [address]: Physical Medicine Physician/Techni juan ID = [id number] for Ron, Rachel e Lab Interpretation (test Abnormal code = 02961-1) [facility] [id number] 11:15:49 Test Item Value Reference Range Interpretation Comments POC-Glucose Meter (test 130 mg/dL 70-110 H : [facility] = 1538) [address] [place], [place] [address]: Physical Medicine Physician/Techni juan ID = [id number] for Rno, Rachel e Lab Interpretation (test Abnormal code = 13728-8) [facility] [id number] 11:15:49 Test Item Value Reference Range Interpretation Comments POC-Glucose Meter (test 130 mg/dL 70-110 H : [facility] = 1538) [address] [place], [place] [address]: Physical Medicine Physician/Techni juan ID = [id number] for Orn, Rachel e Lab Interpretation (test Abnormal code = 89736-4) [facility]-GLUCOSE [id number] 11:15:49 Test Item Value Reference Range Interpretation Comments POC-GLUCOSE METER 130 mg/dL 70-110 H : TESTED A T [facility] 1317 (BEAKER) (test code [facility], = 1538) [facility] 77 8: Physical Medicine Physician/Techni juan ID = [id number] for Hamzah lar, Martha POCT-GLUCOSE [id number] 06:19:33 Test Item Value Reference Range Interpretation Comments POC-GLUCOSE METER 302 mg/dL 70-110 H : Notified RN/MD: TESTED (BEAKER) (test code AT [facility] [address] = 1538) [facility] [address]: Physical Medicine Physician/Techni juan ID = [id number] for Wallace Nicole [id number] 06:03:09 Test Item Value Reference Range Interpretation Comments MAGNESIUM (BEAKER) (test code = 1.6 mg/dL 1.5-3.0 627) Physical Medicine Physician ID - [id number] ID - [id number] ID - [id number] ID - [id number] BASIC METABOLIC [id number] 06:01:50 Test Item Value Reference Range Interpretation [...] not appl icable for dialysis patien ts Physical Medicine Physician ID - [id number] ID - [id number] ID - [id number] ID - [id number] ID - [id number] ID - [id number] ID - [id number] ID - [id number] ID - [id number] W/PLT COUNT & AUTO [id number] 05:34:17 Test Item Value Reference Range Interpretation [...] PERCENT (BEAKER) (test code = 2801) POCT-GLUCOSE [id number] 21:14:04 Test Item Value Reference Range Interpretation Comments POC-GLUCOSE METER 233 mg/dL 70-110 H : TESTED A T [facility] [address] (BEAKER) (test code [address], = 1538) [place] [address]: Physical Medicine Physician/Techni juan ID = [id number] for Ann Marie Winkler POCT-GLUCOSE [id number] 16:19:49 Test Item Value Reference Range Interpretation Comments POC-GLUCOSE METER 254 mg/dL 70-110 H : TESTED A T [facility] [address] (BEAKER) (test code [address], = 1538) [place] [address]: Physical Medicine Physician/Techni juan ID = [id number] for Christy Valencia POCT-GLUCOSE [id number] 11:57:18 Test Item Value Reference Range Interpretation Comments POC-GLUCOSE METER 253 mg/dL 70-110 H : TESTED A T [facility] [address] (BEAKER) (test code [address], = 1538) [place] [address] 478: Physical Medicine Physician/Techni juan ID = [id number] for Gabriel Brownwhitley TROPONIN [id number] 10:29:04 Test Item Value Reference Range Interpretation [...] failure, acidosis, acute neurological disease, and persistent tachyarrhythmia.Physical Medicine Physician ID - [id number] NATRIURETIC FACTOR (BNP)2022-06-09 10:09:46 Test Item Value Reference Range Interpretation Comments B-TYPE NATRIURETIC PEPTIDE (BEAKER) 145 pg/mL 0-100 H (test code = 700) Physical Medicine Physician ID - [id number] 10:05:21 Test Item Value Reference Range Interpretation [...] Borderline 130-159 High 160-189 Very High >=190 Physical Medicine Physician ID - [id number] ID - [id number] ID - [id number] 10:05:21 Test Item Value Reference Range Interpretation Comments MAGNESIUM (BEAKER) 1.5 mg/dL 1.5-3.0 Specimen slightly (test code = 627) hemolyzed Physical Medicine Physician ID - [id number] ID - [id number] ID - [id number] ID - [id number] METABOLIC [id number] 10:04:06 Test Item Value Reference Range Interpretation [...] not appl icable for dialysis patien ts Physical Medicine Physician ID - [id number] ID - [id number] ID - [id number] ID - [id number] ID - [id number] ID - [id number] ID - [id number] ID - [id number] ID - [id number] [id number] 09:57:19 Test Item Value Reference Range Interpretation Comments HEMOGLOBIN A1C (BEAKER) (test code = 8.4 % 4.3-6.1 H 368) Physical Medicine Physician ID - [id number] W/PLT COUNT & AUTO [id number] 09:47:46 Test Item Value Reference Range Interpretation [...] PERCENT (BEAKER) (test code = 2801) POCT-GLUCOSE [id number] 06:11:39 Test Item Value Reference Range Interpretation Comments POC-GLUCOSE METER 157 mg/dL 70-110 H : TESTED A T [facility] (BEAKER) (test code [facility] [address], = 1538) [facility] 77 478: Physical Medicine Physician/Techni juan ID = [id number] for Anastacia Brock
[2022-10-23 14:19] LABS: Absolute Lymphocytes (CBC) 1.5 K/uL (0.7-4.9); Hematocrit 39.8 % (39.6-49.0); MCV 88.6 fL (80-100); MPV 7.1 fL (7.6-11.3); Platelets 204 thou/uL (152-406)
--- NOTE | 2022-10-23 14:30 | RAD REPORT ---
EXAM DESCRIPTION: RAD - Chest Single View - 10/23/2022 2:23 pm CLINICAL HISTORY: CHEST PAIN Chest pain. COMPARISON: Chest Single View dated 09/12/2022; Chest Single View dated 08/08/2022; Chest Single View dated 07/13/2022; Chest Single View dated 07/04/2022 FINDINGS: Portable technique limits examination quality. The lungs are grossly clear. The heart is normal in size. No displaced fractures.Sternotomy wires. IMPRESSION: No acute intrathoracic process suspected.
[2022-10-23 14:33] LABS: Albumin 3.6 g/dL (3.4-5.0); Bilirubin Direct 0.1 mg/dL (0-0.2); Bilirubin Indirect, Calculated 0.3 mg/dL (0.2-0.8); Bilirubin Total 0.4 mg/dL (0.2-1.0); Protein, Total 7.4 g/dL (6.4-8.2); Troponin High Sensitivity 12.1 pg/mL (<58.9)
[2022-10-23] MEDS ORDERED: KETOROLAC 30 MG/ML INJ ONE (15:39)
--- NOTE | 2022-10-23 16:07 | ER ---
Nurse's Notes [facility] Name: Jorge Schultz Jr Age: 57 yrs Sex: Male : 1965 Arrival Date: 10/23/2022 Time: 13:52 Bed 2 Private MD: Diagnosis: Chest pain, unspecified Presentation: 10/23 13:59 Chief complaint: Substernal chest pain that radiates to left arm and back x 2 hours. hb Coronavirus screen: At this time, the client does not indicate any symptoms associated with coronavirus-19. Ebola Screen: No symptoms or risks identified at this time. Initial Sepsis Screen: Does the patient meet any 2 criteria? No. Patient's initial sepsis screen is negative. Does the patient have a suspected source of infection? No. Patient's initial sepsis screen is negative. Risk Assessment: Do you want to hurt yourself or someone else? Patient reports no desire to harm self or others. Onset of symptoms was October 23, 2022. 13:59 Method Of Arrival: Ambulatory hb 13:59 Acuity: AALIYAH 3 hb Historical: - Allergies: 14:00 No Known Drug Allergies; hb - PMHx: 14:00 Anxiety; CAD; GERD; Glaucoma; High Cholesterol; Hypertension; IDDM; Myocardial hb infarction; - PSHx: 14:00 CABG; cardiac stents x 2; hb - Immunization history:: Adult Immunizations unknown. - Social history:: Smoking status: Patient denies any tobacco usage or history of. Screenin:05 [facility] ED Fall Risk Assessment (Adult) History of falling in the last 3 months, ko1 including since admission No falls in past 3 months (0 pts) Confusion or Disorientation No (0 pts) Intoxicated or Sedated No (0 pts) Impaired Gait No (0 pts) Mobility Assist Device Used No (0 pt) Altered Elimination No (0 pt) Score/Fall Risk Level 0 - 2 = Low Risk Oriented to surroundings, Maintained a safe environment, Educated pt \T\ family on fall prevention, incl call for assistance when getting out of bed, Assessed \T\ reinforced patient's understanding of fall precautions, Provided non-skid footwear, Hourly rounding (assess needs \T\ fall precautionary measures) done, Used ambulatory aids as needed (educated on \T\ assisted with), Used gait belt as appropriate. Abuse screen: Denies threats or abuse. Denies injuries from another. Nutritional screening: No deficits noted. Tuberculosis screening: No symptoms or risk factors identified. Assessment: 14:05 General: Appears in no apparent distress. uncomfortable, Behavior is cooperative, ko1 appropriate for age, anxious. Pain: Complains of pain in chest Pain does not radiate. Pain began gradually. Neuro: No deficits noted. Cardiovascular: Reports chest pain, shortness of breath. Respiratory: Reports shortness of breath. GI: No deficits noted. : No deficits noted. EENT: No deficits noted. Derm: No deficits noted. Musculoskeletal: No deficits noted. Vital Signs: 13:59 BP 108 / 81; Pulse 65; Resp 16; Temp 98.3; Pulse Ox 100% on R/A; Weight 81.65 kg; hb Height 5 ft. 4 in. ; Pain 7/10; 14:15 BP 101 / 75; Pulse 66; Resp 16; Pulse Ox 99% on R/A; ko1 15:44 BP 134 / 86; Pulse 69; Resp 16; Pulse Ox 100% ; ko1 13:59 Body Mass Index 30.90 (81.65 kg, 162.56 cm) hb 13:59 Pain Scale: Adult hb ED Course: 13:54 Patient arrived in ED. mg5 13:54 Claudia Alcazar MD is Attending Physician. sp3 13:59 Kayla Webb, RN is Primary Nurse. ko1 14:00 Triage completed. hb 14:00 Arm band placed on. hb 14:05 Patient has correct armband on for positive identification. Bed in low position. Call ko1 light in reach. Side rails up X 1. Provided Education on: ns. Client placed on continuous cardiac and pulse oximetry monitoring. NIBP monitoring applied. monitoring manager on. Door closed. Noise minimized. Lights dimmed. Warm blanket given. 14:05 Inserted saline lock: 20 gauge in left antecubital area, using aseptic technique. Blood ko1 collected. Patient maintains SpO2 saturation greater than 95% on room air. 14:11 Basic Metabolic Panel Sent. ko1 14:11 CBC with Diff Sent. ko1 14:11 LFT's Sent. ko1 14:11 Troponin HS Sent. ko1 14:25 XRAY Chest (1 view) In Process Unspecified. EDMS 15:32 Troponin High Sensitivity: Draw 2 hours after first Sent. ko1 16:36 No provider procedures requiring assistance completed. IV discontinued, intact, ko1 bleeding controlled, No redness/swelling at site. Pressure dressing applied. Administered Medications: 15:32 Drug: Ketorolac IVP 15 mg Route: IVP; Site: left antecubital; ko1 Medication: 14:16 VIS not applicable for this client. ko1 Outcome: 16:07 Discharge ordered by . sp3 16:36 Discharged to home ambulatory, with family. ko1 16:36 Condition: improved 16:36 Discharge instructions given to patient, family, Instructed on discharge instructions, follow up and referral plans. Demonstrated understanding of instructions, follow-up care. 16:38 Patient left the ED. ko1 Signatures: Dispatcher [employer] EDJadyn Tan RN RN Claudia Hodges MD MD sp3 Kayla Webb RN RN ko1 Eduarda Patton mg5
--- NOTE | 2022-10-23 16:07 | EDPHYS ---
Physician Documentation [facility] Name: Jorge Schultz Jr Age: 57 yrs Sex: Male : 1965 Arrival Date: 10/23/2022 Time: 13:52 Bed 2 Private MD: ED Physician Claudia Alcazar HPI: 10/23 15:12 This 57 yrs old Male presents to ER via Ambulatory with complaints of Chest sp3 Pain, Shortness Of Breath. 15:12 57-year-old male with extensive cardiac history including hyperlipidemia, hypertension, sp3 CAD, anxiety with multiple visits to the ER for repetitive chest pain episodes presents again today for similar chest pain/shortness of breath episode. He denies any change in his typical pattern. He denies fever, headache, trauma, injury, neck pain, back pain, abdominal pain, nausea, vomiting, diarrhea, rash, syncope, near syncope, focal neurological deficit, travel history, known sick contacts or any other signs or symptoms on ROS at this time.. Historical: - Allergies: 14:00 No Known Drug Allergies; hb - PMHx: 14:00 Anxiety; CAD; GERD; Glaucoma; High Cholesterol; Hypertension; IDDM; Myocardial hb infarction; - PSHx: 14:00 CABG; cardiac stents x 2; hb - Immunization history:: Adult Immunizations unknown. - Social history:: Smoking status: Patient denies any tobacco usage or history of. ROS: 15:17 Constitutional: Negative for fever, chills, and weight loss, Eyes: Negative for injury, sp3 pain, redness, and discharge, ENT: Negative for injury, pain, and discharge, Neck: Negative for injury, pain, and swelling, Respiratory: Negative for shortness of breath, cough, wheezing, and pleuritic chest pain, Abdomen/GI: Negative for abdominal pain, nausea, vomiting, diarrhea, and constipation, Back: Negative for injury and pain, MS/Extremity: Negative for injury and deformity, Skin: Negative for injury, rash, and discoloration, Neuro: Negative for headache, weakness, numbness, tingling, and seizure, Psych: Negative for depression, anxiety, suicide ideation, homicidal ideation, and hallucinations, Allergy/Immunology: Negative for hives, rash, and allergies. 15:17 All other systems are negative. Exam: 15:17 Constitutional: This is a well developed, well nourished patient who is awake, alert, sp3 and in no acute distress. Head/Face: Normocephalic, atraumatic. Eyes: Pupils equal round and reactive to light, extra-ocular motions intact. Lids and lashes normal. Conjunctiva and sclera are non-icteric and not injected. Cornea within normal limits. Periorbital areas with no swelling, redness, or edema. ENT: Nares patent. No nasal discharge, no septal abnormalities noted. External auditory canals are clear. Oropharynx with no redness, swelling, or masses, exudates, or evidence of obstruction, uvula midline. Mucous membranes moist. Neck: Trachea midline, no thyromegaly or masses palpated, and no cervical lymphadenopathy. Supple, full range of motion without nuchal rigidity, or vertebral point tenderness. No Meningismus. Chest/axilla: Normal chest wall appearance and motion. Nontender with no deformity. No lesions are appreciated. Cardiovascular: Regular rate and rhythm with a normal S1 and S2. No gallops, murmurs, or rubs. Normal PMI, no JVD. No pulse deficits. Respiratory: Lungs have equal breath sounds bilaterally, clear to auscultation and percussion. No rales, rhonchi or wheezes noted. No increased work of breathing, no retractions or nasal flaring. Abdomen/GI: Soft, non-tender, with normal bowel sounds. No distension or tympany. No guarding or rebound. No evidence of tenderness throughout. Back: No spinal tenderness. No costovertebral tenderness. Full range of motion. Skin: Warm, dry with normal turgor. Normal color with no rashes, no lesions, and no evidence of cellulitis. 15:17 ECG was reviewed by the Attending Physician. EKG demonstrates normal sinus rhythm at 64 bpm with poor R wave progression, left axis, nonspecific diffuse ST/T changes with evidence of acute ischemia. Vital Signs: 13:59 BP 108 / 81; Pulse 65; Resp 16; Temp 98.3; Pulse Ox 100% on R/A; Weight 81.65 kg; hb Height 5 ft. 4 in. ; Pain 7/10; 14:15 BP 101 / 75; Pulse 66; Resp 16; Pulse Ox 99% on R/A; ko1 15:44 BP 134 / 86; Pulse 69; Resp 16; Pulse Ox 100% ; ko1 13:59 Body Mass Index 30.90 (81.65 kg, 162.56 cm) hb 13:59 Pain Scale: Adult hb MDM: 13:56 Patient medically screened. sp3 15:18 Data reviewed: vital signs, nurses notes, old medical records, lab test result(s), EKG, sp3 radiologic studies. ED course: 57-year-old male with recurrent chest pain and his typical pattern. Initial work-up was negative including chest x-ray, laboratory values with normal troponin, and initial EKG. We will repeat troponin 2 hours from his initial draw and if negative safely discharge him home with cardiology follow-up.. 16:06 ED course: Repeat troponin is negative. We will safely discharge patient home at this sp3 time.. 10/23 13:56 Order name: Basic Metabolic Panel; Complete Time: 14:45 sp3 10/23 13:56 Order name: CBC with Diff; Complete Time: 14:45 sp3 10/23 13:56 Order name: LFT's; Complete Time: 14:45 sp3 10/23 13:56 Order name: Troponin HS; Complete Time: 14:45 sp3 10/23 15:12 Order name: Troponin High Sensitivity: Draw 2 hours after first; Complete Time: 16:06 sp3 10/23 13:56 Order name: XRAY Chest (1 view); Complete Time: 14:45 sp3 10/23 13:56 Order name: EKG; Complete Time: 13:56 sp3 10/23 13:56 Order name: Cardiac monitoring; Complete Time: 14:00 sp3 10/23 13:56 Order name: EKG - Nurse/Tech; Complete Time: 14:11 sp3 10/23 13:56 Order name: IV Saline Lock; Complete Time: 14:11 sp3 10/23 13:56 Order name: Labs collected and sent; Complete Time: 14:11 sp3 10/23 13:56 Order name: O2 Per Protocol; Complete Time: 14:00 sp3 10/23 13:56 Order name: O2 Sat Monitoring; Complete Time: 14:00 sp3 Administered Medications: 15:32 Drug: Ketorolac IVP 15 mg Route: IVP; Site: left antecubital; ko1 Disposition Summary: 10/23/22 16:07 Discharge Ordered Location: Home sp3 Condition: Stable sp3 Diagnosis - Chest pain, unspecified sp3 Followup: sp3 - With: Private Physician - When: Upon discharge from the Emergency Department - Reason: Continuance of care Discharge Instructions: - Discharge Summary Sheet sp3 - Nonspecific Chest Pain, Adult sp3 Forms: - Medication Reconciliation Form sp3 - Thank You Letter sp3 - Antibiotic Education sp3 - Prescription Opioid Use sp3 - Patient Portal Instructions sp3 - Leadership Thank You Letter sp3 Signatures: Dispatcher [employer] Jadyn Lora, RITA RN Claudia Alcazar MD MD sp3 Kayla Webb RN RN ko1
[2022-10-23 16:42] VITALS: TEMP 98.3
[2022-10-23 16:44] VITALS: BP 134/86; O2SAT 100
--- NOTE | 2022-10-24 14:39 | EKG ---
Test Date: 2022-10-23 Test Time: 14:04:38 [employer]: HB MEASUREMENT RESULTS: Intervals: Rate: 64 VT: 148 QRSD: 106 QT: 392 QTc: 404 [place]: P: 20 VT: 148 QRS: -59 T: 2 INTERPRETIVE STATEMENTS: Normal sinus rhythm Left axis deviation Septal infarct, age undetermined Abnormal ECG Compared to ECG 09/12/2022 17:13:53 Left-axis deviation now present Myocardial infarct finding now present Left anterior fascicular block no longer present Electronically Signed On 10-24-22 14:36:46 CDT by Jose Maria Adair
== END 2022-10-23 16:38 | disposition home or self-care (01) ==
LOC: ER 13:52
DX: R07.89 Other chest pain (principal)
CPT/HCPCS: 36415; 71045; 80048; 80076; 84484; 85025; 93005; 96374; 99285

== ENCOUNTER 2022-10-24 10:13 | Emergency (ER) | payer SELFPAY ==
--- OUTSIDE RECORDS SUMMARY | 2022-10-24 10:18 | XMS REPORT | Continuity of Care Document ---
:1965 Author Organization [facility] t Address [address] [place] [place] [address] Care Team Providers Name Role Phone García DONNELLY, Yolis Nkiru Attending Clinician Derrick Oleary MD Attending Clinician [phone] Issac Faria MD Attending Clinician ISSAC [...] Clinician NO KNOWN Allergy [facility] Social History Social Habit Start Date Stop [...] exposure 00:00:00 00:00:00 non-user Medical Center History [facility] 2022-06-09 2022-06-[address] [facility] Housing Places 00:00:00 00:00:00 Medical Ce nter Lived History [facility] 2022-06-09 2022-06-[address] [facility] Housing Homeless 00:00:00 00:00:00 Medical Center Last Year Alcohol intake 2022-06-09 2022-06-[address] [facility]00 non-drinker Medical Cente r (finding) History [facility] 2022-06-09 2022-06-[address] [facility] Transport Med 00:00:00 00:00:[address] Sex Ass[birth year] At [birth year] [facility] 00:00:00 00:00:00 Medical Center Smoking Status Start Date Stop Date Source Never smoked tobacco [facility] Medications Ordered Filled Start Stop Current [...] by mouth Center in the morning. furosemide 0 2024- No 40mg QD Take [address] [...] kg Systolic blood 2022-06-10 11:20:00 116 mm[Hg] [facility] Diastolic blood 2022-06-10 11:20:00 80 mm[Hg] [facility] Heart rate 2022-06-10 11:20:00 80 /min [facility] Body temperature 2022-06-10 11:20:[address] [facility] Respiratory rate 2022-06-10 11:20:00 18 /min [facility] Oxygen saturation in 2022-06-10 11:20:00 99 /min [facility] Arterial blood by Medical Ce nter Pulse oximetry Body height 2022-06-09 06:19:00 165.1 cm [facility] Body weight 2022-06-09 06:19:00 86.183 kg [facility] BMI 2022-06-09 06:19:00 31.62 kg/m2 [facility] Procedures Procedure Date / Time Performed Performing Clinician Sour e POCT-GLUCOSE METER 2022-06-10 11:04:00 Issac Faria [facility] 2D ECHO W/ DOPPLER 2022-06-10 10:41:59 Derrick Oleary [facility] (CW/PW/COLOR) [facility] 2D ECHO W/ DOPPLER 2022-06-10 10:41:59 Derrick Oleary [facility] (CW/PW/COLOR) [facility] POCT-GLUCOSE METER 2022-06-10 06:08:00 Derrick Oleary [facility] BASIC METABOLIC PANEL 2022-06-10 04:38:[address] [facility] CBC W/PLT COUNT & AUTO 2022-06-10 04:38:00 Derrick Oleary i [facility] MAGNESIUM 2022-06-10 04:38:00 Derrick Oleary [facility] CBC W/PLT COUNT & AUTO 2022-06-10 04:38:00 Derrick Oleary i [facility] POCT-GLUCOSE METER 2022-06-09 21:02:00 Derrick Oleary [facility] POCT-GLUCOSE METER 2022-06-09 16:07:00 Derrick Oleary [facility] POCT-GLUCOSE METER 2022-06-09 11:45:00 Derrick Oleary [facility] HEMOGLOBIN A1C 2022-06-09 09:33:00 Derrick Oleary [facility] BASIC METABOLIC PANEL 2022-06-09 09:33:[address] [facility] CBC W/PLT COUNT & AUTO 2022-06-09 09:33:00 Derrick Oleary i [facility] MAGNESIUM 2022-06-09 09:33:00 Derrick Oleary [facility] TROPONIN I 2022-06-09 09:33:00 [facility] 2022-06-09 09:33:00 [facility] B-TYPE NATRIURETIC 2022-06-09 09:33:00 Derrick Oleary [facility] FACTOR (BNP) [facility] CBC W/PLT COUNT & AUTO 2022-06-09 09:33:00 Derrick Oleary i [facility] POCT-GLUCOSE METER 2022-06-09 06:00:[address] [facility] Plan of Care Planned Activity Planned Date Details Comments Source Future Scheduled 2025-06-09 Lipid panel (procedure) [facility] Test 00:00:00 [code = 95105259] Medical Ce nter Future Scheduled 2025-06-09 Lipid panel (procedure) [facility] Test 00:00:00 [code = 16326773] Medical Ce nter Future Scheduled 2025-06-09 Lipid panel (procedure) [facility] Test 00:00:00 [code = 00784309] Medical Ce nter Future Scheduled 2025-06-09 Lipid panel (procedure) [facility] Test 00:00:00 [code = 82840275] Medical Ce nter Future Scheduled 2025-06-09 Lipid panel (procedure) [facility] Test 00:00:00 [code = 21553789] Medical Ce nter Future Scheduled 2025-06-09 Lipid panel (procedure) [facility] Test 00:00:00 [code = 26244725] Medical Ce nter Future Scheduled 2023-06-10 Tobacco [...] Me dical Center (#1)] Future Scheduled 2022-10-23 Influenza Vaccine (#1) C [...] screening Medical Cent er (procedure) [code = 962766314] Future Scheduled 1978 Human immunodeficiency [facility] 00:00:00 virus screening Medical Cent er (procedure) [code = 825722642] Future Scheduled 1978 Human immunodeficiency [facility] Test 00:00:00 virus screening Medical Cent er (procedure) [code = 705821348] Future Scheduled 1965 COVID-19 VACCINE (#1) CH [...] colon Medical Ce nter (procedure) [code = 137799008] Future Scheduled 1963 Screening for malignant [facility] Test 00:00:00 neoplasm of colon Medical Ce nter (procedure) [code = 655606360] Future Scheduled 1965 Sigmoidoscopy [code = [facility] 00:[facility] S[facility]oidoscopy] Medical Cente r Future Scheduled 1963 CT Colonography (combo) [facility] Test 00:00:00 [code = CT [facility] ([facility]bo)] Future Scheduled 1963 Screening for malignant [facility] Test 00:00:00 neoplasm of colon Medical Ce nter (procedure) [code = 769813271] Future Scheduled 1963 Screening for malignant [facility] Test 00:00:00 neoplasm of colon Medical Ce nter (procedure) [code = 744161463] Future Scheduled 1963 Screening for malignant [facility] Test 00:00:00 neoplasm of colon Medical Ce nter (procedure) [code = 070225434] Future Scheduled 1963 Screening for malignant [facility] Test 00:00:00 neoplasm of colon Medical Ce nter (procedure) [code = 390306029] Future Scheduled 1965 S[facility]oidoscopy [facility]code = [facility] 00:00:[facility] Sigmoidoscopy] Medical Cente r Future Scheduled 1963 CT Colonography (combo) [facility] Test 00:00:00 [code = CT Colonography [facility] (combo)] Future Scheduled 1963 Screening for malignant [facility] Test 00:00:00 neoplasm of colon Medical Ce nter (procedure) [code = 660727593] Future Scheduled 1963 Screening for malignant [facility] Test 00:00:00 neoplasm of colon Medical Ce nter (procedure) [code = 422560727] Future Scheduled 1963 Screening for malignant [facility] Test 00:00:00 neoplasm of colon Medical Ce nter (procedure) [code = 796021076] Future Scheduled 1963 Screening for malignant [facility] Test 00:00:00 neoplasm of colon Medical Ce nter (procedure) [code = 326064177] Future Scheduled 1965 S[facility]oidoscopy [facility]code = [facility] 00:00:[facility] S[facility]oidoscopy] Medical Cente r Future Scheduled 1963 CT Colonography (combo) [facility] Test 00:00:00 [code = CT [facility] (combo)] Future Scheduled 1963 Screening for malignant [facility] Test 00:00:00 neoplasm of colon Medical Ce nter (procedure) [code = 082725892] Future Scheduled 1963 Screening for malignant [facility] Test 00:00:00 neoplasm of colon Medical Ce nter (procedure) [code = 696712232] Future Scheduled 1963 Screening for malignant [facility] Test 00:00:00 neoplasm of colon Medical Ce nter (procedure) [code = 150074991] Future Scheduled 1963 Screening for malignant [facility] Test 00:00:00 neoplasm of colon Medical Ce nter (procedure) [code = 749122132] Future Scheduled 1965 Sigmoidoscopy [facility]code = [facility] 00:00:00 Sigmoidoscopy] Medical Cente r Future Scheduled 1963 CT Colonography (combo) [facility] Test 00:00:00 [code = CT Colonography [facility] (combo)] Future Scheduled 1963 Screening for malignant [facility] Test 00:00:00 neoplasm of colon Medical Ce nter (procedure) [code = 623180310] Future Scheduled 1963 Screening for malignant [facility] Test 00:00:00 neoplasm of colon Medical Ce nter (procedure) [code = 427463554] Future Scheduled 1963 Screening for malignant [facility] Test 00:00:00 neoplasm of colon Medical Ce nter (procedure) [code = 237493851] Future Scheduled 1963 Screening for malignant [facility] Test 00:00:00 neoplasm of colon Medical Ce nter (procedure) [code = 322640691] Future Scheduled 1965 Sigmoidoscopy [facility]code = [facility] 00:00:[facility] Sigmoidoscopy] Medical Cente r Future Scheduled 1963 CT Colonography (combo) [facility] Test 00:00:00 [code = CT Colonography [facility] (combo)] Future Scheduled 1963 Screening for malignant [facility] Test 00:00:00 neoplasm of colon Medical Ce nter (procedure) [code = 738488457] Future Scheduled 1963 Screening for malignant [facility] Test 00:00:00 neoplasm of colon Medical Ce nter (procedure) [code = 286113169] Future Scheduled 1963 CT Colonography (combo) [facility] Test 00:00:00 [code = CT Colonography [facility] (combo)] Future Scheduled 1963 Screening for malignant [facility] Test 00:00:00 neoplasm of colon Medical Ce nter (procedure) [code = 749685841] Future Scheduled 1963 Screening for malignant [facility] Test 00:00:00 neoplasm of colon Medical Ce nter (procedure) [code = 987645883] Future Scheduled 1963 Screening for malignant [facility] Test 00:00:00 neoplasm of colon Medical Ce nter (procedure) [code = 574595878] Future Scheduled 1963 Screening for malignant [facility] Test 00:00:00 neoplasm of colon Medical Ce nter (procedure) [code = 992463203] Future Scheduled 1965 S[facility]oidoscopy [facility]code [facility] End Encounter Admission Attending Care Care Encounter Source Date/Time Date/Time Type Type Clinicians Facility Department ID 2022-06-09 2022-06-10 [facility] [id number] 05:46:00 13:08:00 Encounter Derrick Oleary [facility] 2022-06-09 2022-06-10 Inpatient ER [facility] Cardiology [id number] [facility] 05:46:00 13:08:00 ISSAC 2022-06-09 2022-06-10 [facility] [id number] 05:46[facility]00 13:08:00 Encounter Derrick Oleary [facility] 2022-06-09 2022-06-09 Travel [facility] [id number] [facility] 00[facility]00 [facility] 2022-06-09 2022-06-09 Travel [facility] [id number] [facility] 00[facility]00 [facility] Results Test Description Test Time Test Comments Results Result Sour e Comments 2D Echo 2022-06-[address] [facility] W/Doppler(CW/PW/C 11:17:34 FractionSLEH ECHO Medical olor) [facility] 2D Echo 2022-06-[address] [facility] W/Doppler(CW/PW/C 11:17:34 FractionSLEH ECHO Medical olor) [facility] 2D Echo 2022-06-[address] [facility] W/Doppler(CW/PW/C 11:17:34 FractionSLE ECHO Medical olor) [facility] 2D Echo 2022-06-[address] [facility] W/Doppler(CW/PW/C 11:17:34 FractionSLE ECHO Medical olor) [facility] 2D Echo 2022-06-[address] [facility] W/Doppler(CW/PW/C 11:17:34 FractionSLE ECHO Medical olor) [facility] 2D Echo 2022-06-[address] [facility] W/Doppler(CW/PW/C 11:17:34 FractionSLE ECHO Medical olor) [facility] POC-Glucose meter 2022-06-10 11:15:49 Test Item Value Reference Range Interpretation Comme nts POC-Glucose Meter (test code = 130 mg/dL 70-110 H : TESTED AT [facility] [address] [facility] [address]) [place] [address]: Metal Buggy Operator/Techni juan ID = [id number] for Ron, Rachel e Lab Interpretation (test code = Abnormal 68726-6) [facility] [id number] 11:15:49 Test Item Value Reference Range Interpretation Comments POC-Glucose Meter (test 130 mg/dL 70-110 H : TE STED AT [facility] code = 1538) [address] [place] [address]: Metal Buggy Operator/Techni juan ID = [id number] for Ron, Rachel e Lab Interpretation (test Abnormal code = 73185-9) [facility] [id number] 11:15:49 Test Item Value Reference Range Interpretation Comments POC-Glucose Meter (test 130 mg/dL 70-110 H : [facility] code = 1538[facility] [address] [place], [place] [address]: Metal Buggy Operator/Techni juan ID = [id number] for Ron, Rachel e Lab Interpretation (test Abnormal code = 00965-5) [facility] [id number] 11:15:49 Test Item Value Reference Range Interpretation Comments POC-Glucose Meter (test 130 mg/dL 70-110 H : [facility] code = 1538[facility] [address] [place], [place] [address]: Metal Buggy Operator/Techni juan ID = [id number] for Ron, Rachel e Lab Interpretation (test Abnormal code = 76951-9) [facility] [id number] 11:15:49 Test Item Value Reference Range Interpretation Comments POC-Glucose Meter (test 130 mg/dL 70-110 H : TE STED AT [facility] code = 1538) [address] [place], [place] [address]: Metal Buggy Operator/Techni juan ID = [id number] for Ron, Rachel e Lab Interpretation (test Abnormal code = 19112-5) [facility] [id number] 11:15:49 Test Item Value Reference Range Interpretation Comments POC-Glucose Meter (test 130 mg/dL 70-110 H : [facility] code = 1538[facility] [address] [place], [place] [address]: Metal Buggy Operator/Techni juan ID = [id number] for Ron, Rachel e Lab Interpretation (test Abnormal code = 21736-2) [facility]-GLUCOSE [id number] 11:15:49 Test Item Value Reference Range Interpretation Comments POC-GLUCOSE METER 130 mg/dL 70-110 H : TESTED A T [facility] [address]17 (BEAKER) (test code [facility], = 1538) [facility] 77 8: Metal Buggy Operator/Techni juan ID = [id number] for Hamzah lar, Martha POCT-GLUCOSE [id number] 06:19:33 Test Item Value Reference Range Interpretation Comments POC-GLUCOSE METER 302 mg/dL 70-110 H : Notified RN/MD: TESTED (BEAKER) (test code AT [facility] [address] = [address]) [facility] [address]: Metal Buggy Operator/Techni juan ID = [id number] for Wallace Nicole [id number] 06:03:09 Test Item Value Reference Range Interpretation Comments MAGNESIUM (BEAKER) (test code = 1.6 mg/dL 1.5-3.0 627) [employer] Bug[employer] Operator ID - [id number] ID - [id number] ID - [id number] ID - [id number] BASIC METABOLIC [id number] 06:01:50 Test Item Value Reference Range Interpretation [...] G3b Moderately to s everely 30-44 G4 Sever ly decreased 15-29 G5 Kidney failure <15Repo rted eGFR is based on the CKD-EPI 1 equation t hat does not use a race coefficientEsti mated GFR is not as accur ate as Creatinine Yasmine huber in predicting glom erular filtration rate . Estimated GFR is not appl icable for dialysis patien ts Metal Buggy Operator ID - [id number] ID - [id number] ID - [id number] ID - [id number] ID - [id number] ID - [id number] ID - [id number] ID - [id number] ID - [id number] W/PLT COUNT & AUTO [id number] 05:34:17 Test Item Value Reference Range Interpretation [...] PERCENT (BEAKER) (test code = 2801) POCT-GLUCOSE [id number] 21:14:04 Test Item Value Reference Range Interpretation Comments POC-GLUCOSE METER 233 mg/dL 70-110 H : TESTED A T [facility] [address] (BEAKER) (test code [address], = 1538) [place] [address]: Metal Buggy Operator/Techni juan ID = [id number] for Ann Marie Winkler POCT-GLUCOSE [id number] 16:19:49 Test Item Value Reference Range Interpretation Comments POC-GLUCOSE METER 254 mg/dL 70-110 H : TESTED A T [facility] [address] (BEAKER) (test code [address], = 1538) [place] [address]: Metal Buggy Operator/Techni juan ID = [id number] for Christy Valencia POCT-GLUCOSE [id number] 11:57:18 Test Item Value Reference Range Interpretation Comments POC-GLUCOSE METER 253 mg/dL 70-110 H : TESTED A T [facility] [address] (BEAKER) (test code [address], = 1538) [place] [address]: Metal Buggy Operator/Techni juan ID = [id number] for Jennifer Brown TROPONIN [id number] 10:29:04 Test Item Value Reference Range Interpretation [...] failure, acidosis, acute neurological disease, and persistent tachyarrhythmia.Metal Buggy Operator ID - [id number] NATRIURETIC FACTOR (BNP)2022-06-09 10:09:46 Test Item Value Reference Range Interpretation Comments B-TYPE NATRIURETIC PEPTIDE (BEAKER) 145 pg/mL 0-100 H (test code = 700) Metal Buggy Operator ID - [id number] 10:05:21 Test Item Value Reference Range Interpretation [...] Borderline 130-159 High 160-189 Very High >=190 Metal Buggy Operator ID - [id number] ID - [id number] ID - [id number] 10:05:21 Test Item Value Reference Range Interpretation Comments MAGNESIUM (BEAKER) 1.5 mg/dL 1.5-3.0 Specimen slightly (test code = 627) hemolyzed Metal Buggy Operator ID - [id number] ID - [id number] ID - [id number] ID - [id number] METABOLIC [id number] 10:04:06 Test Item Value Reference Range Interpretation [...] not appl icable for dialysis patien ts Metal Buggy Operator ID - [id number] ID - [id number] ID - [id number] ID - [id number] ID - [id number] ID - [id number] ID - [id number] ID - [id number] ID - [id number] 09:57:19 Test Item Value Reference Range Interpretation Comments HEMOGLOBIN A1C (BEAKER) (test code = 8.4 % 4.3-6.1 H 368) Metal Buggy Operator ID - [id number] W/PLT COUNT & AUTO [id number] 09:47:46 Test Item Value Reference Range Interpretation [...] PERCENT (BEAKER) (test code = 2801) POCT-GLUCOSE [id number] 06:11:39 Test Item Value Reference Range Interpretation Comments POC-GLUCOSE METER 157 mg/dL 70-110 H : TESTED A T [facility] [address] (BEAKER) (test code [facility] [address], = 1538) [facility] [address]: Metal Buggy Operator/Techni juan ID = [id number] for Anastacia Brock
[2022-10-24 10:49] LABS: Absolute Lymphocytes (CBC) 1.3 K/uL (0.7-4.9); MCV 87.6 fL (80-100); MPV 7.1 fL (7.6-11.3); Platelets 201 thou/uL (152-406); RBC Red Blood Cell Count 4.22 M/uL (4.33-5.43)
[2022-10-24 11:06] LABS: Albumin 3.3 g/dL (3.4-5.0); Bilirubin Direct 0.1 mg/dL (0-0.2); Bilirubin Indirect, Calculated 0.3 mg/dL (0.2-0.8); Bilirubin Total 0.4 mg/dL (0.2-1.0); Magnesium 1.5 mg/dL (1.6-2.4); Protein, Total 7.1 g/dL (6.4-8.2); Troponin High Sensitivity 13.6 pg/mL (<58.9)
--- NOTE | 2022-10-24 12:10 | RAD REPORT ---
EXAM DESCRIPTION: RADChest Single View10/24/2022 11:44 am CLINICAL HISTORY: CHEST PAIN COMPARISON: Chest Single View dated 10/23/2022; Chest Single View dated 09/12/2022; Chest Single View d ated 08/08/2022; Chest Single View dated 07/13/2022 TECHNIQUE: Portable AP view of the chest. FINDINGS: The lungs are clear. No pneumothorax or effusion. The cardiomediastinal contours are unch anged with sequelae of prior median sternotomy. IMPRESSION: No acute cardiopulmonary process.
--- NOTE | 2022-10-24 15:04 | ER ---
Nurse's Notes [facility] Name: Jorge Schultz Jr Age: 57 yrs Sex: Male : 1965 Arrival Date: 10/24/2022 Time: 10:13 Bed 19 Private MD: Diagnosis: Chest pain, unspecified Presentation: 10/24 10:21 Chief complaint: Patient states: "I was here yesterday for the same thing and I'm not mb9 feeling any better. I have CP/SOB that is getting worse. The chest pain radiates to my left arm and nothing is making it better". Coronavirus screen: Vaccine status: Patient reports receiving the 2nd dose of the covid vaccine. Ebola Screen: No symptoms or risks identified at this time. Initial Sepsis Screen: Does the patient meet any 2 criteria? No. Patient's initial sepsis screen is negative. Does the patient have a suspected source of infection? No. Patient's initial sepsis screen is negative. Risk Assessment: Do you want to hurt yourself or someone else? Patient reports no desire to harm self or others. Onset of symptoms was October 24, 2022. 10:21 Method Of Arrival: Ambulatory 9 10:21 Acuity: AALIYAH 3 mb9 Triage Assessment: 10:22 General: Appears uncomfortable, Behavior is cooperative. Pain: Complains of pain in mb9 chest Pain radiates to left arm. Neuro: Davidson Agitation-Sedation Scale (RASS): 0 - Alert and Calm. Cardiovascular: Reports chest pain, shortness of breath, Patient's skin is warm and dry. Respiratory: Airway is patent Respiratory effort is even, unlabored, Respiratory pattern is regular, symmetrical. Derm: Skin is pink, warm \\T\\ dry. Musculoskeletal: Range of motion: intact in all extremities. Historical: - Allergies: 10:22 No Known Allergies; mb9 - PMHx: 10:22 Anxiety; CAD; GERD; Glaucoma; High Cholesterol; Hypertension; IDDM; Myocardial mb9 infarction; - PSHx: 10:22 CABG; cardiac stents x 2; mb9 - Immunization history:: Adult Immunizations up to date. - Social history:: Smoking status: Patient denies any tobacco usage or history of. Screenin:44 [facility] ED Fall Risk Assessment (Adult) History of falling in the last 3 months, db including since admission No falls in past 3 months (0 pts) Confusion or Disorientation No (0 pts) Intoxicated or Sedated No (0 pts) Impaired Gait No (0 pts) Mobility Assist Device Used No (0 pt) Altered Elimination No (0 pt) Score/Fall Risk Level 0 - 2 = Low Risk Oriented to surroundings, Maintained a safe environment. Abuse screen: Denies threats or abuse. Denies injuries from another. Nutritional screening: No deficits noted. Tuberculosis screening: No symptoms or risk factors identified. Assessment: 10:43 Reassessment: Patient appears in no apparent distress at this time. Patient and/or db family updated on plan of care and expected duration. Pain level reassessed. Patient is alert, oriented x 3, equal unlabored respirations, skin warm/dry/pink. General: Appears in no apparent distress. comfortable, Behavior is calm, cooperative. Pain: Complains of pain in chest Pain began 2 hours ago. Cardiovascular: Reports chest pain, Capillary refill < 3 seconds Patient's skin is warm and dry. Respiratory: Airway is patent Respiratory effort is even, unlabored, Respiratory pattern is regular, symmetrical. 12:00 Reassessment: Patient appears in no apparent distress at this time. Patient and/or db family updated on plan of care and expected duration. Pain level reassessed. Patient is alert, oriented x 3, equal unlabored respirations, skin warm/dry/pink. Pain: Complains of pain in chest. 13:00 Neuro: Level of Consciousness is awake, alert, obeys commands, Oriented to person, db place, time, situation. 14:00 Reassessment: Patient appears in no apparent distress at this time. Patient and/or db family updated on plan of care and expected duration. Pain level reassessed. Patient is alert, oriented x 3, equal unlabored respirations, skin warm/dry/pink. 15:45 Reassessment: Patient appears in no apparent distress at this time. Patient and/or db family updated on plan of care and expected duration. Pain level reassessed. Patient is alert, oriented x 3, equal unlabored respirations, skin warm/dry/pink. Patient states feeling better. Patient states symptoms have improved. Vital Signs: 10:21 BP 109 / 72; Pulse 65; Resp 14; Temp 97.5; Pulse Ox 100% on R/A; Weight 86.18 kg; mb9 Height 5 ft. 5 in. ; Pain 5/10; 10:30 BP 105 / 71; Pulse 61; Resp 16; Pulse Ox 99% on R/A; db 11:30 BP 100 / 71; Pulse 58; Resp 18; Pulse Ox 100% on R/A; db 12:00 BP 104 / 74; Pulse 57; Resp 16; Pulse Ox 100% on R/A; db 13:00 BP 126 / 95; Pulse 58; Resp 16; Pulse Ox 100% on R/A; db 14:00 BP 105 / 81; Pulse 62; Resp 18; Pulse Ox 100% on R/A; db 15:00 BP 116 / 77; Pulse 61; Resp 18; Pulse Ox 100% on R/A; db 10:21 Body Mass Index 31.62 (86.18 kg, 165.1 cm) mb9 10:21 Pain Scale: Adult mb9 ED Course: 10:14 Patient arrived in ED. im 10:19 Rohan Velasquez MD is Attending Physician. kdr 10:22 Triage completed. mb9 10:22 Arm band placed on. mb9 10:23 Placed in gown. Bed in low position. Call light in reach. Side rails up X 1. Client mb9 placed on continuous cardiac and pulse oximetry monitoring. NIBP monitoring applied. electronic device monitor on. 10:28 Yola Dominguez, RN is Primary Nurse. db 10:30 Initial lab(s) drawn, by me, sent to lab. Inserted saline lock: 20 gauge in right upper db arm, using aseptic technique. Blood collected. 11:46 XRAY Chest (1 view) In Process Unspecified. EDMS 11:58 Repeat lab(s) drawn. by me, sent to lab. db 15:46 Provided Education on: DISCHARGE. db 15:46 No provider procedures requiring assistance completed. IV discontinued, intact, db bleeding controlled, No redness/swelling at site. Patient maintains SpO2 saturation greater than 95% on room air. Administered Medications: No medications were administered Medication: 15:46 VIS not applicable for this client. db Outcome: 15:03 Discharge ordered by . kdr 15:46 Discharged to home ambulatory. db 15:46 Condition: stable 15:46 Discharge instructions given to patient, Instructed on discharge instructions, follow up and referral plans. Prescriptions given X 1. 15:47 Patient left the ED. db Signatures: Dispatcher [employer] EDNM Edwardtger, Rohan, MD MD kdr Yola Dominguez RN RN db Idalia Galindo RN RN mb9 Christen Padron
--- NOTE | 2022-10-24 15:04 | EDPHYS ---
Physician Documentation [facility] Name: Jorge Schultz Jr Age: 57 yrs Sex: Male : 1965 Arrival Date: 10/24/2022 Time: 10:13 Bed 19 Private MD: ED Physician Rohan Velasquez HPI: 10/24 18:17 This 57 yrs old Male presents to ER via Ambulatory with complaints of Chest kdr Pain, Shortness Of Breath. 18:17 Patient presents today with left-sided chest pain. He was seen here yesterday and on kdr numerous other occasions for same or similar situation. Patient is no different today than on prior visits. Patient is nontoxic-appearing and is on his cell phone on my initial evaluation. Patient is otherwise stable.. Onset: The symptoms/episode began/occurred this morning, today. Severity of symptoms: At their worst the symptoms were moderate in the emergency department the symptoms are unchanged. The patient has experienced similar episodes in the past, chronically, with the last episode occurring yesterday. The patient has been recently seen at [facility], yesterday, this week, a couple of weeks ago, last month, for similar complaints. Historical: - Allergies: 10:22 No Known Allergies; mb9 - PMHx: 10:22 Anxiety; CAD; GERD; Glaucoma; High Cholesterol; Hypertension; IDDM; Myocardial mb9 infarction; - PSHx: 10:22 CABG; cardiac stents x 2; mb9 - Immunization history:: Adult Immunizations up to date. - Social history:: Smoking status: Patient denies any tobacco usage or history of. ROS: 18:17 Constitutional: Negative for fever, chills, and weight loss, Eyes: Negative for injury, kdr pain, redness, and discharge, ENT: Negative for injury, pain, and discharge, Neck: Negative for injury, pain, and swelling, Respiratory: Negative for shortness of breath, cough, wheezing, and pleuritic chest pain, Abdomen/GI: Negative for abdominal pain, nausea, vomiting, diarrhea, and constipation, Back: Negative for injury and pain, : Negative for injury, bleeding, discharge, and swelling, MS/Extremity: Negative for injury and deformity, Skin: Negative for injury, rash, and discoloration, Neuro: Negative for headache, weakness, numbness, tingling, and seizure activity. Psych: Negative for depression, anxiety, suicide ideation, homicidal ideation, and hallucinations, Allergy/Immunology: Negative for hives, rash, and allergies, Endocrine: Negative for neck swelling, polydipsia, polyuria, polyphagia, and marked weight changes, Hematologic/Lymphatic: Negative for swollen nodes, abnormal bleeding, and unusual bruising. 18:17 Cardiovascular: Positive for chest pain, Negative for edema, orthopnea, palpitations, paroxysmal nocturnal dyspnea. Exam: 11:56 ECG was reviewed by the Attending Physician. kdr 18:17 Constitutional: This is a well developed, well nourished patient who is awake, alert, kdr and in no acute distress. Head/Face: Normocephalic, atraumatic. Eyes: Pupils equal round and reactive to light, extra-ocular motions intact. Lids and lashes normal. Conjunctiva and sclera are non-icteric and not injected. Cornea within normal limits. Periorbital areas with no swelling, redness, or edema. Neck: Trachea midline, no thyromegaly or masses palpated, and no cervical lymphadenopathy. Supple, full range of motion without nuchal rigidity, or vertebral point tenderness. No Meningismus. Chest/axilla: Normal chest wall appearance and motion. Nontender with no deformity. No lesions are appreciated. Cardiovascular: Regular rate and rhythm with a normal S1 and S2. No gallops, murmurs, or rubs. Normal PMI, no JVD. No pulse deficits. Respiratory: Lungs have equal breath sounds bilaterally, clear to auscultation and percussion. No rales, rhonchi or wheezes noted. No increased work of breathing, no retractions or nasal flaring. Abdomen/GI: Soft, non-tender, with normal bowel sounds. No distension or tympany. No guarding or rebound. No evidence of tenderness throughout. Back: No spinal tenderness. No costovertebral tenderness. Full range of motion. Skin: Warm, dry with normal turgor. Normal color with no rashes, no lesions, and no evidence of cellulitis. MS/ Extremity: Pulses equal, no cyanosis. Neurovascular intact. Full, normal range of motion. Neuro: Awake and alert, GCS 15, oriented to person, place, time, and situation. Cranial nerves II-XII grossly intact. Motor strength 5/5 in all extremities. Sensory grossly intact. Cerebellar exam normal. Normal gait. Psych: Awake, alert, with orientation to person, place and time. Behavior, mood, and affect are within normal limits. Vital Signs: 10:21 BP 109 / 72; Pulse 65; Resp 14; Temp 97.5; Pulse Ox 100% on R/A; Weight 86.18 kg; mb9 Height 5 ft. 5 in. ; Pain 5/10; 10:30 BP 105 / 71; Pulse 61; Resp 16; Pulse Ox 99% on R/A; db 11:30 BP 100 / 71; Pulse 58; Resp 18; Pulse Ox 100% on R/A; db 12:00 BP 104 / 74; Pulse 57; Resp 16; Pulse Ox 100% on R/A; db 13:00 BP 126 / 95; Pulse 58; Resp 16; Pulse Ox 100% on R/A; db 14:00 BP 105 / 81; Pulse 62; Resp 18; Pulse Ox 100% on R/A; db 15:00 BP 116 / 77; Pulse 61; Resp 18; Pulse Ox 100% on R/A; db 10:21 Body Mass Index 31.62 (86.18 kg, 165.1 cm) mb9 10:21 Pain Scale: Adult mb9 MDM: 15:03 Patient medically screened. kdr 18:17 Data reviewed: vital signs, nurses notes, lab test result(s), radiologic studies. kdr 18:17 ED course: I discussed the case with Dr. Adair who came to the department and kdr interviewed the patient. Dr. Adair asked that I start the patient on Imdur and he would see him in follow-up. Patient otherwise was discharged in good condition at time of release.. 10/24 10:44 Order name: Basic Metabolic Panel; Complete Time: 11:18 EDMS 10/24 10:44 Order name: Liver (Hepatic) Function; Complete Time: 11:18 EDMS 10/24 10:44 Order name: Troponin High Sensitivity; Complete Time: 11:18 EDMS 10/24 10:44 Order name: NT PRO-BNP; Complete Time: 11:18 EDMS 10/24 10:44 Order name: Magnesium; Complete Time: 11:18 EDMS 10/24 10:44 Order name: Alcohol Serum/Plasma; Complete Time: 11:18 EDMS 10/24 10:44 Order name: CBC with Automated Diff; Complete Time: 11:18 EDRI 10/24 11:42 Order name: Troponin High Sensitivity: Two hours after initial draw; Complete Time: kdr 12:46 10/24 14:12 Order name: Troponin High Sensitivity; Complete Time: 15:00 [facility] 10/24 10:19 Order name: XRAY Chest (1 view); Complete Time: 12:46 [facility] 10/24 10:19 Order name: EKG; Complete Time: 10:45 [facility] 10/24 10:19 Order name: Cardiac monitoring; Complete Time: 10: [facility] 10/24 10:19 Order name: EKG - Nurse/Tech; Complete Time: 10: [facility] 10/24 10:19 Order name: IV Saline Lock; Complete Time: : [facility] 10/24 10:19 Order name: Labs collected and sent; Complete Time: : [facility] 10/24 10:19 Order name: O2 Per Protocol; Complete Time: : [facility] 10/24 10:19 Order name: O2 Sat Monitoring; Complete Time: :23 kdr EC:56 Rate is 65 beats/min. Rhythm is regular, Sinus Rhythm with No ectopy. QRS [place] is kdr Normal. [place] interval is normal. QRS interval is normal. Clinical impression: NSR w/ Non-specific ST/T Changes. Administered Medications: No medications were administered Disposition Summary: 10/24/22 15:03 Discharge Ordered Location: Home kdr Problem: an ongoing problem kdr Symptoms: have improved kdr Condition: Stable kdr Diagnosis - Chest pain, unspecified kdr Followup: kdr - With: Private Physician - When: 2 - 3 days - Reason: If symptoms return, Further diagnostic work-up, Recheck today's complaints, Continuance of care, Re-evaluation by your physician Discharge Instructions: - Discharge Summary Sheet kdr - Nonspecific Chest Pain, Adult, [id number] kdr Forms: - Medication Reconciliation Form kdr - Thank You Letter kdr - Patient Portal Instructions kdr - Leadership Thank You Letter kdr Prescriptions: - isosorbide mononitrate 20 mg Oral tablet - take 1 tablet by ORAL route 2 times per day give doses at least 7 hrs apart; 10 kdr tablet; Refills: 0, Product Selection Permitted Signatures: Dispatcher [facility] Rohan Velasquez MD MD kdr Breneman, Mary Beth, RN RN mb9 Corrections: (The following items were deleted from the chart) 10:51 10:44 BASIC METABOLIC PANEL+C.LAB.BRZ ordered. EDMS EDMS 10:51 10:44 HEPATIC FUNCTION+C.LAB.BRZ ordered. EDMS EDMS 10:51 10:44 MAGNESIUM+C.LAB.BRZ ordered. EDMS EDMS 10:51 10:44 PROBNP+C.LAB.BRZ ordered. EDMS EDMS 10:51 10:44 Troponin High Sensitivity+C.LAB.BRZ ordered. EDMS EDMS 10:51 10:45 ETHANOL+C.LAB.BRZ ordered. EDMS EDMS
[2022-10-24 16:10] VITALS: TEMP 97.5
[2022-10-24 16:12] VITALS: O2SAT 100
[2022-10-24 16:16] VITALS: BP 116/77
--- NOTE | 2022-10-27 16:58 | EKG ---
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
== END 2022-10-24 15:47 | disposition home or self-care (01) ==
LOC: ER 10:13
DX: R07.9 Chest pain, unspecified (principal)
CPT/HCPCS: 36415; 71045; 80048; 80076; 82077; 83735; 83880; 84484; 85025; 93005; 99285

== ENCOUNTER 2023-04-13 14:58 | Observation (INO) | payer SELFPAY ==
[2023-04-13 15:21] LABS: Hematocrit 38.4 % (39.6-49.0); Lymphocytes % 29.7 % (15.3-44.8); MPV 7.4 fL (7.6-11.3); Platelets 173 thou/uL (152-406); RBC Red Blood Cell Count 4.42 M/uL (4.33-5.43)
[2023-04-13 15:43] LABS: Albumin 3.5 g/dL (3.4-5.0); Bilirubin Direct 0.1 mg/dL (0-0.2); Bilirubin Indirect, Calculated 0.3 mg/dL (0.2-0.8); Bilirubin Total 0.4 mg/dL (0.2-1.0); Magnesium 1.7 mg/dL (1.6-2.4); Potassium 3.7 mEq/L (3.5-5.1); Protein, Total 7.9 g/dL (6.4-8.2); Troponin High Sensitivity 37.6 pg/mL (<58.9)
[2023-04-13] MEDS ORDERED: MORPHINE 4 MG/ML SYR ONE (15:48)
--- NOTE | 2023-04-13 15:50 | RAD REPORT ---
EXAM DESCRIPTION: Charles Single View04/13/2023 3:33 pm CLINICAL HISTORY: Chest pain COMPARISON: 2022 FINDINGS: The lungs appear clear of acute infiltrate. The heart is normal size. Postsurgical change s involve the chest IMPRESSION: No acute abnormalities displayed
[2023-04-13 16:01] LABS: Protime INR 1.15
--- NOTE | 2023-04-13 16:37 | ER ---
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 Coronavirus screen: Client ll1 denies travel out of the [place] in the last 14 days. At this time, the client does not indicate any symptoms associated with coronavirus-19. Ebola Screen: Patient denies travel to an Ebola-affected area in the 21 days before illness onset. Initial Sepsis Screen: Does the patient meet any 2 criteria? No. Patient's initial sepsis screen is negative. Does the patient have a suspected source of infection? No. Patient's initial sepsis screen is negative. Risk Assessment: Do you want to hurt yourself or someone else? Patient reports no desire to harm self or others. Onset of symptoms was April 13, 2023. 15:07 Method Of Arrival: Wheelchair ll1 15:07 Acuity: AALIYAH 2 ll1 Triage Assessment: 15:08 General: Appears uncomfortable, Behavior is calm, cooperative, appropriate for age. ll1 Pain: Complains of pain in chest Pain currently is 8 out of 10 on a pain scale. Cardiovascular: Reports chest pain, lightheadedness, nausea, shortness of breath. Historical: - Allergies: 15:05 No Known Allergies; ld1 - PMHx: 15:05 Anxiety; CAD; GERD; Glaucoma; High Cholesterol; Hypertension; IDDM; Myocardial ld1 infarction; - PSHx: 15:05 CABG; ld1 - Immunization history:: Adult Immunizations up to date. - Social history:: Smoking status: Patient denies any tobacco usage or history of. Patient/guardian denies using alcohol. Screenin:14 [facility] ED Fall Risk Assessment (Adult) History of falling in the last 3 months, ld1 including since admission No falls in past 3 months (0 pts). Abuse screen: Denies threats or abuse. Denies injuries from another. Nutritional screening: No deficits noted. Tuberculosis screening: No symptoms or risk factors identified. Assessment: 15:14 General: Appears in no apparent distress. uncomfortable, Behavior is cooperative, ld1 anxious. Pain: Complains of pain in chest Pain does not radiate. Pain currently is 8 out of 10 on a pain scale. Quality of pain is described as pressure, throbbing, Pain began 2 hours ago. Is continuous. Neuro: Level of Consciousness is awake, alert, obeys commands, Oriented to person, place, time, situation. Cardiovascular: Capillary refill < 3 seconds Patient's skin is warm and dry. Rhythm is sinus rhythm. Respiratory: Airway is patent Respiratory effort is even, unlabored. GI: Abdomen is round non-distended. : No signs and/or symptoms were reported regarding the genitourinary system. EENT: No signs and/or symptoms were reported regarding the EENT system. Derm: No signs and/or symptoms reported regarding the dermatologic system. Musculoskeletal: No signs and/or symptoms reported regarding the musculoskeletal system. 17:43 Reassessment: Patient appears in no apparent distress at this time. No changes from ld1 previously documented assessment. Patient and/or family updated on plan of care and expected duration. Pain level reassessed. Patient is alert, oriented x 3, equal unlabored respirations, skin warm/dry/pink. Vital Signs: 15:07 BP 143 / 97; Pulse 79; Resp 18; Temp 97.6; Pulse Ox 99% ; Weight 89.81 kg; Height 5 ft. ll1 5 in. ; Pain 8/10; 15:14 BP 143 / 97; Pulse 75; Resp 18; Pulse Ox 98% on R/A; ld1 17:43 BP 112 / 79; Pulse 71; Resp 18; Pulse Ox 95% on R/A; ld1 19:00 BP 136 / 85; Pulse 75; Resp 17; Temp 98; Pulse Ox 99% on R/A; rv 19:30 BP 124 / 88; Pulse 77; Resp 18; Pulse Ox 97% on R/A; as9 20:00 BP 107 / 76; Pulse 73; Resp 18; Pulse Ox 97% on R/A; as9 20:00 BP 128 / 78; Pulse 82; Resp 19; Temp 97.8; Pulse Ox 97% on R/A; as9 22:39 BP 120 / 83; Pulse 76; Resp 17; Temp 98; Pulse Ox 99% on R/A; rv 15:07 Body Mass Index 32.95 (89.81 kg, 165.1 cm) ll1 15:07 Pain Scale: Adult ll1 Kandice Coma Score: 19:15 Eye Response: spontaneous(4). Motor Response: obeys commands(6). Verbal Response: rv oriented(5). Total: 15. 22:39 Eye Response: spontaneous(4). Motor Response: obeys commands(6). Verbal Response: rv oriented(5). Total: 15. ED Course: 15:02 Patient arrived in ED. im 15:04 Ruddy Billy DO is Attending Physician. ms3 15:07 Arm band placed on Patient placed in an exam room, on a stretcher. ll1 15:08 Triage completed. ll1 15:14 Maria G Billy, RN is Primary Nurse. ld1 15:14 Patient has correct armband on for positive identification. Placed in gown. Bed in low ld1 position. Call light in reach. Side rails up X2. laboratory monitor on. Pulse ox on. NIBP on. Door closed. Noise minimized. Warm blanket given. 15:14 No provider procedures requiring assistance completed. Inserted saline lock: 20 gauge ld1 in right antecubital area, using aseptic technique. Blood collected. Patient maintains SpO2 saturation greater than 95% on room air. 15:35 XRAY Chest (1 view) In Process Unspecified. EDMS 16:36 Kylee Hill MD is Hospitalizing Provider. ms3 19:15 Patient admitted, IV remains in place. rv Administered Medications: 15:51 Drug: morphine IVP or IV 4 mg IVP once over 4 mins Route: IVP; Infused Over: 4 mins; me1 Site: right antecubital; 17:41 Follow up: Response: No adverse reaction; Pain is decreased me1 Medication: 15:14 VIS not applicable for this client. ld1 Outcome: 16:36 Decision to Hospitalize by Provider. ms3 19:15 Admitted to ER Hold. Please see [facility] for further documentation. rv 19:15 Condition: good 19:15 Instructed on the need for admit, 22:38 Admitted to Med/surg accompanied by tech, via wheelchair, room 211, with chart, Report rv called to Evangelina SALINAS 22:43 Patient left the ED. rv Signatures: Dispatcher [facility] EDMS Cristian Abebe RN RN Esme Duong RN RN ll1 Ruddy Billy DO DO ms3 Maria G Billy RN RN ld1 Christen Padron Michelle RN RN me1 Mekhi Warren RN RN as9 Corrections: (The following items were deleted from the chart) 15:05 15:05 PSHx: CABG; ld1 ld1 15:05 15:05 PSHx: cardiac stents x 2; ld1 ld1
--- NOTE | 2023-04-13 16:37 | EDPHYS ---
Physician Documentation [facility] Name: Jorge Schultz Jr Age: 58 yrs Sex: Male : 1965 Arrival Date: 04/13/2023 Time: 14:58 Bed 7 Private MD: ED Physician Ruddy Billy HPI: 04/13 15:24 This 58 yrs old Male presents to ER via Wheelchair with complaints of Chest ms3 Pain, Shortness Of Breath. 15:24 58-year-old male with past medical history of anxiety, coronary artery disease, GERD, ms3 glaucoma, hyperlipidemia, hypertension, diabetes, [place] presents to the emergency department for chest pain and shortness of breath that began 1 and half hours prior to arrival. Patient states the pain is an 8/10. Patient denies any alleviating or inciting factors. Patient endorses nausea and denies vomiting, diaphoresis.. Historical: - Allergies: 15:05 No Known Allergies; ld1 - PMHx: 15:05 Anxiety; CAD; GERD; Glaucoma; High Cholesterol; Hypertension; IDDM; Myocardial ld1 infarction; - PSHx: 15:05 CABG; ld1 - Immunization history:: Adult Immunizations up to date. - Social history:: Smoking status: Patient denies any tobacco usage or history of. Patient/guardian denies using alcohol. ROS: 15:24 Constitutional: Negative for fever, and chills. Neck: Negative for injury, pain, and ms3 swelling, Abdomen/GI: Negative for abdominal pain, nausea, vomiting, diarrhea, and constipation, 15:24 MS/Extremity: Negative for injury and deformity, Skin: Negative for injury, rash, and discoloration, 15:24 Cardiovascular: Positive for chest pain, 15:24 Respiratory: Positive for shortness of breath, Exam: 15:24 Constitutional: This is a well developed, well nourished patient who is awake, alert, ms3 and in no acute distress. Head/Face: Normocephalic, atraumatic. Neck: Trachea midline, no cervical lymphadenopathy. Supple, full range of motion without nuchal rigidity, or vertebral point tenderness. No Meningismus. Chest/axilla: Normal chest wall appearance and motion. Nontender with no deformity. Cardiovascular: Regular rate and rhythm with a normal S1 and S2. No gallops, murmurs, or rubs. Normal PMI, no JVD. No pulse deficits. Respiratory: Lungs have equal breath sounds bilaterally, clear to auscultation and percussion. No rales, rhonchi or wheezes noted. No increased work of breathing, no retractions or nasal flaring. Abdomen/GI: Soft, non-tender, with normal bowel sounds. No distension or tympany. No guarding or rebound. No evidence of tenderness throughout. Skin: Warm, dry with normal turgor. Normal color with no rashes, no lesions, and no evidence of cellulitis. MS/ Extremity: Pulses equal, no cyanosis. Neurovascular intact. Full, normal range of motion. 15:50 ECG was reviewed by the Attending Physician. ms3 Vital Signs: 15:07 BP 143 / 97; Pulse 79; Resp 18; Temp 97.6; Pulse Ox 99% ; Weight 89.81 kg; Height 5 ft. ll1 5 in. ; Pain 8/10; 15:14 BP 143 / 97; Pulse 75; Resp 18; Pulse Ox 98% on R/A; ld1 17:43 BP 112 / 79; Pulse 71; Resp 18; Pulse Ox 95% on R/A; ld1 19:00 BP 136 / 85; Pulse 75; Resp 17; Temp 98; Pulse Ox 99% on R/A; rv 19:30 BP 124 / 88; Pulse 77; Resp 18; Pulse Ox 97% on R/A; as9 20:00 BP 107 / 76; Pulse 73; Resp 18; Pulse Ox 97% on R/A; as9 20:00 BP 128 / 78; Pulse 82; Resp 19; Temp 97.8; Pulse Ox 97% on R/A; as9 22:39 BP 120 / 83; Pulse 76; Resp 17; Temp 98; Pulse Ox 99% on R/A; rv 15:07 Body Mass Index 32.95 (89.81 kg, 165.1 cm) ll1 15:07 Pain Scale: Adult ll1 Cutler Coma Score: 19:15 Eye Response: spontaneous(4). Motor Response: obeys commands(6). Verbal Response: rv oriented(5). Total: 15. 22:39 Eye Response: spontaneous(4). Motor Response: obeys commands(6). Verbal Response: rv oriented(5). Total: 15. MDM: 15:08 Patient medically screened. ms3 15:24 Differential diagnosis: abnormal EKG, acute myocardial infarction, coronary artery ms3 disease. 16:31 HEART Score: History: Moderately Suspicious (1), ECG: Non specific repolarization ms3 disturbance / LBTB / PM (1), Age: > 45 and < 65 years (1), Risk Factors: > or = 3 Risk factors for atherosclerotic disease (2), [Hypercholesterolemia] [Hypertension] [DM] Troponin: < or = 1 x Normal Limit (0), Total Score = 5. The patient was not given aspirin in the Emergency Department. Patient reports taking aspirin within the past 24 hours. Data reviewed: vital signs, nurses notes, lab test result(s), EKG, radiologic studies, plain films, and as a result, I will admit patient. Consideration of Admission/Observation Patient was admitted/placed on observation. Management of patient was discussed with the following: Hospitalist: Dr Hill. I considered the following discharge prescriptions or medication management in the emergency department Medications were administered in the Emergency Department. See MAR. Independent interpretation of the following test(s) in the Emergency Department X-Ray: My interpretation is CXR image reveiwed by me does not reveal PNA or pulmonary edema. Care significantly affected by the following chronic conditions: Diabetes, Hypertension, CAD. Counseling: I had a detailed discussion with the patient and/or guardian regarding the historical points, exam findings, and any diagnostic results supporting the discharge/admit diagnosis, lab results, radiology results, the need for further work-up and treatment in the hospital. ED course: Discussed plan for observation with patient and he understands and agrees with plan. 04/13 15:08 Order name: Basic Metabolic Panel; Complete Time: 15:58 ms3 04/13 15:08 Order name: CBC with Diff; Complete Time: 15:30 ms3 04/13 15:08 Order name: LFT's; Complete Time: 15:58 ms3 04/13 15:08 Order name: Magnesium; Complete Time: 15:58 ms3 04/13 15:08 Order name: PT-INR; Complete Time: 16:17 ms3 04/13 15:08 Order name: Troponin HS; Complete Time: 15:58 ms3 04/13 17:46 Order name: Basic Metabolic Panel EDMS 04/13 17:46 Order name: Basic Metabolic Panel EDMS 04/13 17:46 Order name: CBC with Automated Diff EDMS 04/13 17:46 Order name: CBC with Automated Diff EDMS 04/13 17:46 Order name: Lipid Profile EDMS 04/13 17:46 Order name: Lipid Profile EDMS 04/13 17:46 Order name: Troponin High Sensitivity EDMS 04/13 17:46 Order name: Troponin High Sensitivity EDMS 04/13 17:46 Order name: Troponin High Sensitivity EDMS 04/13 15:08 Order name: XRAY Chest (1 view); Complete Time: 15:58 ms3 04/13 17:46 Order name: Echo with Doppler EDMS 04/13 17:46 Order name: Echo with Doppler EDMS 04/13 15:08 Order name: EKG; Complete Time: 15:09 ms3 04/13 17:46 Order name: CONS Physician Consult EDMS 04/13 15:08 Order name: Cardiac monitoring; Complete Time: 15:14 ms3 04/13 15:08 Order name: EKG - Nurse/Tech; Complete Time: 15:14 ms3 04/13 15:08 Order name: IV Saline Lock; Complete Time: 15:14 ms3 04/13 15:08 Order name: Labs collected and sent; Complete Time: 15:14 ms3 04/13 15:08 Order name: O2 Per Protocol; Complete Time: 15:14 ms3 04/13 15:08 Order name: O2 Sat Monitoring; Complete Time: 15:14 ms3 04/13 15:30 Order name: Labs - recollect needed: recollect light blue top; Complete Time: 15:51 bd EC:50 Rate is 77 beats/min. Rhythm is regular. Right axis deviation noted. TX interval is ms3 normal. QRS interval is normal. QT interval is normal. Clinical impression: NSR w/ Non-specific ST/T Changes. Interpreted by me. Reviewed by me. Administered Medications: 15:51 Drug: morphine IVP or IV 4 mg IVP once over 4 mins Route: IVP; Infused Over: 4 mins; me1 Site: right antecubital; 17:41 Follow up: Response: No adverse reaction; Pain is decreased me1 Disposition Summary: 04/13/23 16:36 Hospitalization Ordered Notes: Hospitalization Status: Observation ms3 Provider: Kylee Hill ms3 Condition: Stable ms3 Problem: new ms3 Symptoms: are unchanged ms3 Bed/Room Type: Standard ms3 Location: Telemetry/MedSurg (observation)(04/13/23 22:21) Room Assignment: 211(04/13/23 22:21) Diagnosis - Chest pain, unspecified ms3 Forms: - Medication Reconciliation Form ms3 - SBAR form ms3 - Leadership Thank You Letter ms3 Signatures: Dispatcher [employer] EDRosa Isela Turk Kimberly, RN RN Ruddy Underwood DO DO ms3 Maria G Billy RN RN ld1 Marybel Olmos RN RN nj1 Herbie Rodriguez ty Corrections: (The following items were deleted from the chart) 15:05 15:05 PSHx: CABG; ld1 ld1 15:05 15:05 PSHx: cardiac stents x 2; ld1 ld1 19:04 16:36 Telemetry/MedSurg (observation) ms3 bd 19:04 16:36 ms3 bd 20:10 19:04 [facility] ER HOLD bd ty 20:10 19:04 ERHOLD- bd ty 20:12 20:10 Telemetry/MedSurg (observation) ty ty 20:12 20:10 211 ty ty 20:12 20:12 ty ty 22:21 20:12 [facility] ER HOLD ty kl 22:21 20:12 ERHOLD- ty kl
--- NOTE | 2023-04-13 17:44 | P.HP ---
Certification for Inpatient Patient admitted to: Observation With expected LOS: <2 Midnights Patient will require the following post-hospital care: None Practitioner: I am a practitioner with admitting privileges, knowledge of patient current condition, hospital course, and medical plan of care. Services: Services provided to patient in accordance with Admission requirements found in Title 42 Section 412.3 of the Code of Federal Regulations Patient History Date of Service: 04/13/23 Reason for admission: CP r/o ACS History of Present Illness: Patient is a 58yo male who presents with chest pain. Patient is well-known to me from multiple prior admissions. Patient also with a history of coronary artery bypass grafting. Patient presented with chest pain in the sternal region. He stated it felt like his prior heart attack so he came to the ER for further evaluation. Patient was given morphine and his pain resolved. His initial troponins were negative. EKG with sinus arrhythmia with PVCs. At this time patient will be admitted for observation. Patient states he had a coronary artery bypass grafting in 2014. He states he had a cardiac cath done about a year and a half ago. At that time patient states he had no significant interventions done-however, his history states that he had 2 stents placed. Patient does not routinely follow-up as scheduled. But he does state that he is taking his all medications. Patient will be admitted for inpatient hospitalization. Allergies No Known Drug Allergies Allergy (Verified 07/14/22 00:06) Unknown Home Medications: Amlodipine Besylate 10 mg PO DAILY 07/04/22 Aspirin [Ecotrin 81 MG] 81 mg PO DAILY 07/04/22 Atorvastatin Calcium [Lipitor] 40 mg PO BEDTIME 07/04/22 Carisoprodol [Soma] 350 mg PO TID PRN 07/04/22 Clopidogrel Bisulfate [Plavix*] 75 mg PO DAILY 07/04/22 Hydrocodone/Acetaminophen [Hydrocodone-Acetamin 10-325 mg] 1 tab PO Q6H PRN 07/04/22 Insulin Glargine,Hum.rec.anlog [Lantus] 50 units SQ BEDTIME 07/04/22 Losartan Potassium 100 mg PO DAILY 07/04/22 Metformin HCl 1,000 mg PO BIDWM 07/04/22 Liraglutide [Victoza 2-Imer] 1.8 mg SQ DAILY 07/05/22 Furosemide [Lasix*] 40 mg PO DAILY 90 Days #90 tab 07/15/22 carvediloL [Coreg] 25 mg PO BID #90 tab 07/15/22 - Past Medical/Surgical History Diabetic: Yes -: X3 MIs -: IDDM -: chronic back pain -: cataracts -: glaucoma rt eye -: cellulitis -: staph infection with CABG -: Glaucoma -: Staph infection wound chest -: cardiac cath -: lumbar epidural injection x3 -: CABG (May 29 2014) x 4 vessels -: Cardiac stents x2 01/20/2022 Psychosocial/ Personal History: Patient lives at home with his . - Family History Mother Medical History: Heart disease, Diabetes Father Medical History: Stroke, Cancer Notes: Multiple CANCER Sister Medical History: Cancer Notes: liver - Social History Smoking Status: Former smoker Alcohol use: No CD- Drugs: No Caffeine use: Yes Review of Systems 10-point ROS is otherwise unremarkable Physical Examination - Vital Signs Temperature: 98 F (reviewed vitals) - Physical Exam General: Alert, In no apparent distress, Oriented x3 HEENT: Atraumatic, PERRLA, Mucous membr. moist/pink, EOMI, Sclerae nonicteric Neck: Supple, 2+ carotid pulse no bruit, No LAD, Without JVD or thyroid abnormality Respiratory: Clear to auscultation bilaterally, Normal air movement Cardiovascular: Regular rate/rhythm, Normal S1 S2 Gastrointestinal: Normal bowel sounds, Soft and benign, Non-distended, No tenderness Musculoskeletal: No tenderness Integumentary: No rashes Neurological: Normal gait, Normal speech, Normal strength at 5/5 x4 extr, Normal tone, Sensation intact, Cranial nerves 3-12 intact, Normal affect Lymphatics: No axilla or inguinal lymphadenopathy - Studies Laboratory Data (last 24 hrs) 04/13/23 04/13/23 04/13/23 15:50 15:12 15:12 WBC 6.80 Hgb 13.5 L Hct 38.4 L Plt Count 173 PT 12.6 H INR 1.15 Sodium 134 L Potassium 3.7 BUN 24 H Creatinine 1.20 Glucose 84 Magnesium 1.7 Total Bilirubin 0.4 AST 10 L ALT 24 Alkaline Phosphatase 87 Assessment & Plan - Problems (Diagnosis) (1) Chest pain, rule out acute myocardial infarction Current Visit: Yes Status: Acute (2) History of coronary artery bypass graft Current Visit: Yes Status: Acute (3) Obesity (BMI 30-39.9) Current Visit: No Status: Acute (4) Coronary artery disease Current Visit: No Status: Chronic Qualifiers: Coronary Disease-Associated Artery/Lesion type: bypass graft [place] vs. transplanted heart: [place] heart Associated angina: with unstable angina Qualified Code(s): I25.700 - Atherosclerosis of coronary artery bypass graft(s), unspecified, with unstable angina pectoris (5) Diabetes mellitus type 2 in obese Current Visit: No Status: Chronic (6) Hypertension Current Visit: No Status: Chronic Qualifiers: Hypertension type: primary hypertension Qualified Code(s): I10 - Essential (primary) hypertension - Plan -High-sensitivity troponin -Cardiology consultation -Echocardiogram -Repeat EKG -Patient could have musculoskeletal pain. 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
[2023-04-13] MEDS ORDERED: ACETAMINOPHEN 325 MG TABLET PO PRN (18:19)
[2023-04-13 18:37] VITALS: BMI 33.0
[2023-04-13] MEDS: MORPHINE 2 MG/ML SYR IV PRN (18:43)
[2023-04-13] MEDS: METOPROLOL TAR 50 MG TAB PO SCH (21:00)
[2023-04-13] MEDS: HYDROCODONE/APAP 10/325 TAB PO PRN (22:30)
[2023-04-13] MEDS ORDERED: HYDROCODONE/APAP 10/325 TAB ONE (22:31)
[2023-04-13 22:53] VITALS: O2SAT 99
[2023-04-14 07:22] LABS: Absolute Lymphocytes (CBC) 1.1 K/uL (0.7-4.9); Hematocrit 37.2 % (39.6-49.0); Lymphocytes % 23.3 % (15.3-44.8); MCV 87.5 fL (80-100); MPV 7.7 fL (7.6-11.3); Platelets 152 thou/uL (152-406); RBC Red Blood Cell Count 4.25 M/uL (4.33-5.43)
[2023-04-14] MEDS: AMLODIPINE 10 MG TAB PO SCH ×2 (09:00→11:08)
[2023-04-14] MEDS: ASPIRIN EC 81 MG TAB PO SCH (09:02)
[2023-04-14] MEDS ORDERED: HYDROCODONE/APAP 10/325 TAB PO PRN (09:58)
[2023-04-14] MEDS: CLOPIDOGREL 75 MG TABLET PO SCH (11:09)
[2023-04-14] MEDS: INSULIN 70/30 100 UNITS/ML SQ ONE (12:43)
[2023-04-14] MEDS: carisoprodoL 350 MG TAB PO PRN (12:43)
[2023-04-14] MEDS: carvediloL 25 MG TAB PO SCH (17:03)
[2023-04-14] MEDS: INSULIN GLARGINE 100 UNIT/ML SQ SCH (19:21)
[2023-04-14] MEDS: ALPRAZOLAM 0.25 MG TABLET PO PRN (19:41)
[2023-04-14] MEDS: ATORVASTATIN 40 MG TAB PO SCH (19:41)
[2023-04-15] MEDS: LOSARTAN POTASSIUM 50 MG TABLET PO SCH (09:00)
[2023-04-15] MEDS ORDERED: ASPIRIN EC 81 MG TAB PO SCH (09:00)
--- NOTE | 2023-04-15 10:00 | ECHO ---
HEIGHT: 5 ft 5 in WEIGHT: 198 lb 6.657 oz DATE OF STUDY: 04/14/[address]: Kylee Hill MD 2-DIMENSIONAL: YES M.MODE: YES DOPPLER: YES COLOR FLOW: YES TDS: PORTABLE: YES DEFINITY: BUBBLE STUDY: DIAGNOSIS: CHEST PAIN, RULE OUT ACUTE CORONARY SYNDROME CARDIAC HISTORY: CATHERIZATION: YES SURGERY: CABG 4 PROSTHETIC VALVE: NO PACEMAKER: NO MEASUREMENTS (cm) DIASTOLIC (NORMALS) SYSTOLIC (NORMALS) IVSd 1.1 (0.6-1.2) LA Diam 3.7 (1.9-4.0) LVEF 51% LVIDd 4.8 (3.5-5.7) LVIDs 3.6 (2.0-3.5) %FS 26% LVPWd 1.2 (0.6-1.2) Ao Diam 2.7 (2.0-3.7) 2 DIMENSIONAL ASSESSMENT: RIGHT ATRIUM: NORMAL LEFT ATRIUM: NORMAL RIGHT VENTRICLE: NORMAL LEFT VENTRICLE: NORMAL TRICUSPID VALVE: NORMAL MITRAL VALVE: NORMAL PULMONIC VALVE: NORMAL AORTIC VALVE: NORMAL PERICARDIAL EFFUSION: NONE AORTIC ROOT: NORMAL LEFT VENTRICULAR WALL MOTION: NORMAL DOPPLER/COLOR FLOW: GRADE I DIASTOLIC DYSFUNCTION COMMENTS: 1. NORMAL LEFT VENTRICULAR SYSTOLIC FUNCTION, EJECTION FRACTION 55-60%, NORMAL WALL MOTION 2. GRADE I DIASTOLIC DYSFUNCTION 3. TRACE TRICUSPID REGURGITATION TECHNOLOGIST: ELZBIETA COOLEY
[2023-04-15 15:57] VITALS: BP 131/91; TEMP 97.7
--- NOTE | 2023-04-15 16:13 | EKG ---
Test Date: 2023-04-13 Test Time: 15:11:06 Street Inspector: Beck MCCOY MEASUREMENT RESULTS: Intervals: Rate: 77 AK: 148 QRSD: 118 QT: 398 QTc: 450 [place]: P: 4 AK: 148 QRS: 157 T: 71 INTERPRETIVE STATEMENTS: Sinus rhythm Septal infarct, age undetermined Abnormal ECG Compared to ECG 04/13/2023 15:08:39 Myocardial infarct finding now present Electronically Signed On 04-15-23 16:06:44 STATION HELPER by Jose Maria Adair
--- NOTE | 2023-04-15 16:13 | EKG ---
Test Date: 2023-04-13 Test Time: 15:08:39 Hand Trimmer: Beck SI MEASUREMENT RESULTS: Intervals: Rate: 0 [place]: QRSD: 0 QT: 0 QTc: 0 [place]: P: [place]: QRS: 0 T: 0 INTERPRETIVE STATEMENTS: No QRS complexes found, no ECG analysis possible Compared to ECG 10/24/2022 10:28:10 Sinus rhythm no longer present Left anterior fascicular block no longer present Myocardial infarct finding no longer present Electronically Signed On 04-15-23 16:06:47 SUPERVISOR [employer] by Jose Maria Adair
--- NOTE | 2023-04-15 17:51 | P.CNS ---
Date of Consult: 04/15/23 Chief Complaint: CP r/o ACS History of Present Illness: patient with PMH of CAD s/p CABG by SVG-RCA and known diffuse small LAD disease, presented with chest pain, patient was seen in clinic last week for same complain and after reviewing coronary angiogram to patient, explained to him that there is no option for intervention and will need medications adjusment so was advised to be started on Imdur but he was asking for pain medications for which i explained to him that this will not treat his angina and we can not prescribe that, yesterday he presented to ER for the same pain that has been going on for months. Allergies No Known Drug Allergies Allergy (Verified 07/14/22 00:06) Unknown Home Medications: Amlodipine Besylate 10 mg PO DAILY 07/04/22 Aspirin [Ecotrin 81 MG] 81 mg PO DAILY 07/04/22 Carisoprodol [Soma] 350 mg PO TID PRN 07/04/22 Clopidogrel Bisulfate [Plavix*] 75 mg PO DAILY 07/04/22 Hydrocodone/Acetaminophen [Hydrocodone-Acetamin 10-325 mg] 1 tab PO Q6H PRN 07/04/22 Insulin Glargine,Hum.rec.anlog [Lantus] 50 units SQ BEDTIME 07/04/22 Losartan Potassium 100 mg PO DAILY 07/04/22 Metformin HCl 1,000 mg PO BIDWM 07/04/22 Liraglutide [Victoza 2-Imer] 1.8 mg SQ DAILY 07/05/22 carvediloL [Coreg*] 25 mg PO BID #90 tab 07/15/22 Amlodipine [Norvasc*] 10 mg PO DAILY 04/13/23 Atorvastatin Calcium [Lipitor*] 40 mg PO BEDTIME 04/13/23 Hydrocodone 10/APAP 325 [[place] 10/325*] 1 tab PO Q6H PRN #30 tab 04/15/23 - Past Medical/Surgical History Diabetic: Yes -: X3 MIs -: IDDM -: chronic back pain -: cataracts -: glaucoma rt eye -: cellulitis -: staph infection with CABG -: Glaucoma -: Staph infection wound chest -: cardiac cath -: lumbar epidural injection x3 -: CABG (May 29 2014) x 4 vessels -: Cardiac stents x2 01/20/2022 -: Cardiac stents x2 01/20/2022 Psychosocial/ Personal History: Patient lives at home with his . - Family History Mother Medical History: Heart disease, Diabetes Father Medical History: Stroke, Cancer Notes: Multiple CANCER Sister Medical History: Cancer Notes: liver - Social History Smoking Status: Unknown if ever smoked Alcohol use: No CD- Drugs: No Caffeine use: Yes Review of Systems 10-point ROS is otherwise unremarkable Physical Examination Temp Pulse Resp BP Pulse Ox 97.7 F 88 12 131/91 H 99 04/15/23 15:42 04/15/23 15:42 04/15/23 15:42 04/15/23 15:42 04/15/23 15:42 General: Alert, Oriented x3 HEENT: Atraumatic Neck: Supple Respiratory: Clear to auscultation bilaterally Cardiovascular: No edema, Normal S1 S2 Gastrointestinal: Normal bowel sounds - Problems (1) Chest pain, rule out acute myocardial infarction Current Visit: Yes Status: Acute Plan: Troponin are negative x3, ACS is ruled out. as mentioned in history above, patient was seen earlier in clinic for pain and plan was to optimize his cardiac medications but he was asking for pain medications, he said Imdur will not help for his pain. Patient was very aggressive in his behaviour and speech and even tried to approach me in a threatening posture when i was trying to explain his medical condition to him so interview with patient was terminated. there is no option for this patient but to continue his current medications and follow up with cardiology as outpatient to optimize his medications.
== END 2023-04-15 17:30 | disposition home or self-care (01) ==
LOC: ER 14:58 → ERHOLD 17:27 → 2ND 22:36
PROVIDERS: ADMIT Hospitalist; ATTEND Hospitalist
DX: R07.9 Chest pain, unspecified (principal); I25.2 Old myocardial infarction; I10 Essential (primary) hypertension; E11.9 Type 2 diabetes mellitus without complications; E66.9 Obesity, unspecified; Z95.1 Presence of aortocoronary bypass graft; Z87.891 Personal history of nicotine dependence; Z68.33 Body mass index [BMI] 33.0-33.9, adult
CPT/HCPCS: 36415; 71045; 80048; 80061; 80076; 82947; 83735; 84484; 85025; 85610; 93005; 93306; 96374; 99285; G0378; J1815; J2270

== ENCOUNTER 2023-04-28 12:46 | Observation (INO) | payer SELFPAY ==
[2023-04-28] MEDS ORDERED: TENECTEPLASE 50 MG/10 ML VIAL IV ONE (13:04)
[2023-04-28 13:20] LABS: Absolute Basophils 0.1 K/uL (0-0.5); Absolute Lymphocytes (CBC) 1.3 K/uL (0.7-4.9); Basophils % 0.8 % (0-1.3); Hematocrit 41.9 % (39.6-49.0); Lymphocytes % 20.5 % (15.3-44.8); MCV 87.5 fL (80-100); MPV 7.1 fL (7.6-11.3); Platelets 250 thou/uL (152-406); RBC Red Blood Cell Count 4.79 M/uL (4.33-5.43)
--- NOTE | 2023-04-28 13:22 | RAD REPORT ---
EXAM DESCRIPTION: CT - Ct Stroke Brain Wo Cont - 04/28/2023 1:07 pm CLINICAL HISTORY: Left-sided weakness COMPARISON: none TECHNIQUE: Computed axial tomography of the head was obtained. All CT scans are performed using dose optimization technique as appropriate and may include automated exposure control or mA/KV adjustment according to patient size. FINDINGS: An intracranial bleed is not seen . The ventricles are normal in caliber. No extra-axial fluid collection is noted. No significant hypodensity within the brain noted Fluid within the sinuses/ mastoids is not seen. IMPRESSION: No acute intracranial abnormality is seen. If patient's symptoms persist MRI of the bra in would be recommended Dr Bragg of the emergency room was notified at 12:56 p.m. April 28, 2023
[2023-04-28 13:24] LABS: Protime INR 1.02
[2023-04-28 13:36] LABS: Anion Gap 10.2 mEq/L (5.0-15.0); Potassium 4.2 mEq/L (3.5-5.1)
--- NOTE | 2023-04-28 14:40 | RAD REPORT ---
EXAM DESCRIPTION: Carole Angio04/28/2023 2:03 pm CLINICAL HISTORY: Left-sided weakness COMPARISON: 2022 TECHNIQUE: 100 cc Isovue [address] angiogram of the neck was obtained. 3D MIPS reconstruction performed. All CT scans are performed using dose optimization technique as appropriate and may include automated exposure control or mA/KV adjustment according to patient size. FINDINGS: Visualized great vessels unremarkable Moderate calcified plaque distal right vertebral artery. Left vertebral artery hypoplastic Mild plaque within Common carotid, internal carotid and external carotid arteries bilaterally No dissection is seen. [place] Mild stenosis 0 to 49 % Moderate stenosis 50-69% Severe stenosis 70-99% IMPRESSION: Calcified plaque distal right vertebral artery results in an approximately 55% stenosis
--- NOTE | 2023-04-28 14:40 | RAD REPORT ---
EXAM DESCRIPTION: CTHead angio04/28/2023 2:03 pm CLINICAL HISTORY: Left-sided weakness COMPARISON: 2022 TECHNIQUE: 100 cc Isovue [address] angiogram of the head was obtained. 3D MIPS reconstruction performed. All CT scans are performed using dose optimization technique as appropriate and may include automated exposure control or mA/KV adjustment according to patient size. FINDINGS: Mild to moderate calcified plaque distal internal carotid arteries Anterior cerebral, middle cerebral, posterior cerebral and basilar arteries do not demonstrate a sign ificant stenosis An aneurysm is not seen No large vessel occlusion IMPRESSION: No acute abnormality is displayed
--- NOTE | 2023-04-28 14:45 | RAD REPORT ---
EXAM DESCRIPTION: Charles Single View04/28/2023 1:47 pm CLINICAL HISTORY: Weakness and numbness COMPARISON: March 2023 FINDINGS: The lungs appear clear of acute infiltrate. The heart is normal size. Postsurgical change s involve the chest IMPRESSION: No acute abnormalities displayed
--- NOTE | 2023-04-28 14:51 | ER ---
Nurse's Notes [facility] Name: Jorge Schultz Jr Age: 58 yrs Sex: Male : 1965 Arrival Date: 04/28/2023 Time: 12:46 Bed 13 Private MD: Diagnosis: Cerebral infarction, unspecified;Weakness;Paresthesia of skin Presentation: 04/27 12:52 Chief complaint: Patient states: SENT FROM PCP FOR SLURRED SPEECH AND R SIDED FACIAL bp DROOP x2 HR. Coronavirus screen: At this time, the client does not indicate any symptoms associated with coronavirus-19. Ebola Screen: No symptoms or risks identified at this time. An acute neurological deficit is present. The charge nurse has been notified. The patient has been moved to a treatment area. Pre-hospital glucose is not applicable to this patient. Initial Sepsis Screen: Does the patient meet any 2 criteria? No. Patient's initial sepsis screen is negative. Does the patient have a suspected source of infection? No. Patient's initial sepsis screen is negative. Risk Assessment: Do you want to hurt yourself or someone else? Patient reports no desire to harm self or others. Onset of symptoms was April 28, 2023 at 11:00. 12:52 Method Of Arrival: Ambulatory bp 12:52 Acuity: AALIYAH 2 bp Triage Assessment: 12:50 The onset of the patients symptoms was April 28, 2023 at 10:30. General: Appears in no db apparent distress. comfortable, Behavior is calm, cooperative. Neuro: Facial droop on left, Reports weakness. Stroke Activation: Symptom onset < 3 hours Physician: Stroke Attending; Name: ; Notified At: ; Arrived At: Physician: Chief Stroke Resident; Name: ; Notified At: ; Arrived At: Physician: Stroke Resident; Name: ; Notified At: ; Arrived At: Physician: ED Attending; Name: ; Notified At: ; Arrived At: Physician: ED Resident; Name: ; Notified At: ; Arrived At: Historical: - Allergies: 12:54 No Known Drug Allergies; bp - PMHx: 12:54 Anxiety; CAD; GERD; Glaucoma; High Cholesterol; Hypertension; IDDM; Myocardial bp infarction; - PSHx: 12:54 CABG; bp - Immunization history:: Adult Immunizations up to date. - Social history:: Smoking status: Patient denies any tobacco usage or history of. - Family history:: not pertinent. - Hospitalizations: : No recent hospitalization is reported. Screenin:14 [facility] ED Fall Risk Assessment (Adult) History of falling in the last 3 months, db including since admission No falls in past 3 months (0 pts) Confusion or Disorientation No (0 pts) Intoxicated or Sedated No (0 pts) Impaired Gait No (0 pts) Mobility Assist Device Used No (0 pt) Altered Elimination No (0 pt) Score/Fall Risk Level 0 - 2 = Low Risk Oriented to surroundings, Maintained a safe environment. Abuse screen: Denies threats or abuse. Denies injuries from another. Nutritional screening: No deficits noted. Tuberculosis screening: No symptoms or risk factors identified. Assessment: 12:58 Reassessment: PATIENT RETURNED TO ROOM FROM CT. DR. BRAGG AT BEDSIDE. db 13:00 VAN Scoring: Arm Drift: Minor drift Visual Disturbance: No visual disturbance noted. db Aphasia: No aphasia noted. Neglect: No neglect noted. TNKase (Tenecteplase) Screening: Indications: Definite evidence of stroke, ischemic, embolic, or hypertensive: Yes. Treatment will start within 4.5 hours onset of symptoms: Yes. No evidence of intracranial hemorrhage or CT of head and no evidence of peripheral hemorrhage or recent CVA: Yes. Consent for thrombolytic therapy: Yes. General: Appears in no apparent distress. comfortable, Behavior is cooperative, anxious. Pain: Denies pain. Neuro: Level of Consciousness is awake, alert, obeys commands, Oriented to person, place, time, situation, Speech is normal, Facial droop on left. 13:15 [place] Swallow Protocol Brief Cognitive Screen What is your name? Normal, Where are you db right now? Normal, What year is it? Normal. Oral Mechanism Examination Facial Symmetry: Normal, Motion: Lip Closure: Normal, Oral Mechanism Result: Normal. 3 oz Water Swallow Challenge: Pt able to drink all water without stopping, coughing, choking or throat clearing: Yes Result: JOSH DONNELLY Notified: Tee Bragg MD. 13:40 Reassessment: PATIENT AMBULATORY TO RESTROOM. db 13:48 Reassessment: PT TO CT. db 14:00 Reassessment: Patient appears in no apparent distress at this time. Patient and/or db family updated on plan of care and expected duration. Pain level reassessed. Patient is alert, oriented x 3, equal unlabored respirations, skin warm/dry/pink. 15:00 Reassessment: Patient appears in no apparent distress at this time. Patient and/or db family updated on plan of care and expected duration. Pain level reassessed. Patient is alert, oriented x 3, equal unlabored respirations, skin warm/dry/pink. 16:09 Reassessment: Patient appears in no apparent distress at this time. Patient and/or db family updated on plan of care and expected duration. Pain level reassessed. Patient is alert, oriented x 3, equal unlabored respirations, skin warm/dry/pink. Patient denies pain at this time. Patient states feeling better. Patient states symptoms have improved. 16:35 Reassessment: PT IN MRI. db 18:00 Reassessment: PHLEBOTOMY AT PATIENT BEDSIDE. 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 im 12:50 Tee Bragg MD is Attending Physician. rn 12:54 Triage completed. bp 12:54 Arm band placed on. bp 13:00 Initial lab(s) drawn, by ED staff, sent to lab. Inserted saline lock: 20 gauge in right db antecubital area, using aseptic technique. Blood collected. 13:05 EKG done, by ED staff, reviewed by Tee Bragg MD. db 13:09 CT Stroke Brain w/o Contrast In Process Unspecified. EDMS 13:23 Yola Dominguez, RN is Primary Nurse. db 13:39 Notified ED physician of a critical lab result(s). troponin 181. me1 13:49 Stroke CXR 1 View In Process Unspecified. EDMS 14:04 CT Head Angio In Process Unspecified. EDMS 14:05 CT Neck Angio In Process Unspecified. EDMS 14:49 Bradly Agosto is Hospitalizing Provider. rn 18:55 Patient has correct armband on for positive identification. Placed in gown. Bed in low db position. Call light in reach. Side rails up X2. Client placed on continuous cardiac and pulse oximetry monitoring. NIBP monitoring applied. Warm blanket given. 18:55 Provided Education on: admission. db 18:55 No provider procedures requiring assistance completed. Patient admitted, IV remains in db place. Administered Medications: 13:10 Drug: TNK FOR STROKE - Tenecteplase IV 0.25 mg/kg IV at per protocol once; MAX db DOSE 25 mg, IVP over 5 seconds {Co-Signature: es3 (Sharita Langley RN).} Route: IV; Rate: per protocol; Site: right antecubital; 13:30 Follow up: Response: No adverse reaction; IV Status: Completed infusion; IV Intake: db 4.4ml 15:55 Drug: foLIC Acid IVPB 1 mg IVPB once Route: IVPB; Site: right antecubital; db 19:22 Follow up: Response: No adverse reaction; IV Status: Completed infusion db 16:28 Drug: Ativan IVP 0.5 mg IVP once Route: IVP; Site: right antecubital; db 19:22 Follow up: Response: No adverse reaction db Medication: 18:55 VIS not applicable for this client. db Point of Care Testing: Blood Glucose: 13:07 Blood Glucose: 211 mg/dL; db Ranges: Intake: 13:30 IV: 4ml; Total: 4ml. db Outcome: 14:50 Decision to Hospitalize by Provider. rn 19:21 Admitted to ER Hold. Please see [facility] for further documentation. db 19:21 Admitted to ER Hold. Please see [facility] for further documentation. 19:21 Condition: stable 19:21 Instructed on the need for admit, 04/28 02:45 Admitted to ICU accompanied by tech, via wheelchair, room ICU 1, with chart, Report pf1 called to RITA Berg 03:29 Patient left the ED. pf1 NIH Stroke Scale - NIH Stroke Score Date: 04/28/2023 Time: 13:00 Total Score = 4 10. Dysarthria (speech clarity - read or repeat words) - 0(Normal) 11. Extinction and Inattention (visual/tactile/auditory/spatial/personal) - 0(No abnormality) 1a. Level of Consciousness (LOC) - 0(Alert) 1b. Level of Consciousness (LOC) (Month \T\ Age) - 0(Both) 1c. LOC Commands (Open \T\ Closes Eyes/Sandblaster Glass) - 0(Both) 2. Best Gaze (Lateral Gaze Paresis) - 0(Normal) 3. Visual Field Loss - 0(No visual loss) 4. Facial Palsy - 1(Minor Paralysis) 5a. Left Arm: Motor (10-second hold) - 1(Drift) 5b. Right Arm: Motor (10-second hold) - 0(No drift) 6a. Left Leg: Motor (5-second hold - always test supine) - 1(Drift) 6b. Right Leg: Motor (5-second hold - always test supine) - 0(No drift) 7. Limb Ataxia (finger/nose \T\ heel/ann - test with eyes open) - 0(Absent) 8. Sensory Loss (pinprick arms/legs/face) - 1(Mild to moderate loss) 9. Best Language: Aphasia (description/naming/reading) - 0(No aphasia) Initials: db NIH Stroke Scale - NIH Stroke Score Date: 04/28/2023 Time: 13:04 Total Score = 4 10. Dysarthria (speech clarity - read or repeat words) - 0(Normal) 11. Extinction and Inattention (visual/tactile/auditory/spatial/personal) - 0(No abnormality) 1a. Level of Consciousness (LOC) - 0(Alert) 1b. Level of Consciousness (LOC) (Month \T\ Age) - 0(Both) 1c. LOC Commands (Open \T\ Closes Eyes/Sandblaster Glass) - 0(Both) 2. Best Gaze (Lateral Gaze Paresis) - 0(Normal) 3. Visual Field Loss - 0(No visual loss) 4. Facial Palsy - 1(Minor Paralysis) 5a. Left Arm: Motor (10-second hold) - 1(Drift) 5b. Right Arm: Motor (10-second hold) - 0(No drift) 6a. Left Leg: Motor (5-second hold - always test supine) - 1(Drift) 6b. Right Leg: Motor (5-second hold - always test supine) - 0(No drift) 7. Limb Ataxia (finger/nose \T\ heel/ann - test with eyes open) - 0(Absent) 8. Sensory Loss (pinprick arms/legs/face) - 1(Mild to moderate loss) 9. Best Language: Aphasia (description/naming/reading) - 0(No aphasia) Initials: rn Signatures: Dispatcher [employer] EDMS Tee Bragg MD MD rn Peltier, Brian, RN RN Yola Moran, RN Mirna Ramirez RN RN pf1 Christen Padron Michelle, RN RN me1 Sharita Langley RN es3
--- NOTE | 2023-04-28 14:51 | EDPHYS ---
Physician Documentation [facility] Name: Jorge Schultz Jr Age: 58 yrs Sex: Male : 1965 Arrival Date: 04/28/2023 Time: 12:46 Bed 13 Private MD: ED Physician Tee Bragg HPI: 04/27 13:12 This 58 yrs old Male presents to ER via Ambulatory with complaints of Slurred rn Speech, Weakness - Left sided. 13:12 The patient presents to the emergency department with weakness of the paresthesias of rn the left lower extremity, left upper extremity. Onset: The symptoms/episode began/occurred at 10:30. Associated signs and symptoms: Pertinent positives: paresthesias, weakness, Pertinent negatives: altered mental status, fever, seizure, double vision, visual field changes, loss of vision. Severity of symptoms: At their worst the symptoms were moderate in the emergency department the symptoms are unchanged. Current symptoms:. The patient has not experienced similar symptoms in the past. Patient reports had left-sided weakness and trouble speaking yesterday and completely resolved after a few hours. Woke up today fine and approximately at 10:30 AM today felt left-sided weakness with arm weaker than leg, weakness of the left face, decree sensation on the left side of the face and body. No head injury. No recent bleeding or procedure. Has never had a stroke but does have hyperlipidemia and CAD. Takes aspirin and Plavix but nothing else.. Historical: - Allergies: 12:54 No Known Drug Allergies; bp - PMHx: 12:54 Anxiety; CAD; GERD; Glaucoma; High Cholesterol; Hypertension; IDDM; Myocardial bp infarction; - PSHx: 12:54 CABG; bp - Immunization history:: Adult Immunizations up to date. - Social history:: Smoking status: Patient denies any tobacco usage or history of. - Family history:: not pertinent. - Hospitalizations: : No recent hospitalization is reported. ROS: 13:12 Constitutional: Negative for fever, chills, and weight loss, Cardiovascular: Negative rn for chest pain, palpitations, and edema, Respiratory: Negative for shortness of breath, cough, wheezing, and pleuritic chest pain, Abdomen/GI: Negative for abdominal pain, nausea, vomiting, diarrhea, and constipation, MS/Extremity: Negative for injury and deformity, Skin: Negative for injury, rash, and discoloration, Neuro: Positive for left-sided weakness and numbness Exam: 13:12 Constitutional: This is a well developed, well nourished patient who is awake, alert, rn and in no acute distress. Head/Face: Normocephalic, atraumatic. Cardiovascular: Regular rate and rhythm. No pulse deficits. Respiratory: No increased work of breathing, no retractions or nasal flaring. Abdomen/GI: Soft, non-tender MS/ Extremity: Pulses equal, no cyanosis. Neuro: Awake and alert, GCS 15, oriented to person, place, time, and situation. Left facial weakness as well as decreased sensation to left face. Left upper extremity with drift and decreased sensation. Left lower extremity with slight weakness but no drift. 15:41 ECG was reviewed by the Attending Physician. rn Vital Signs: 13:10 BP 126 / 82; Pulse 86; Resp 16; Temp 98.1; Pulse Ox 100% on R/A; Weight 87.6 kg; db 14:00 BP 116 / 72; Pulse 82; Resp 16; Temp 97; me1 14:30 BP 133 / 85; Pulse 83; Resp 16; Pulse Ox 99% ; db 15:00 BP 107 / 70; Pulse 73; Resp 20; Pulse Ox 97% on R/A; db 16:00 BP 113 / 71; Pulse 75; Resp 18; Pulse Ox 98% ; db 17:00 BP 106 / 73; Pulse 89; Resp 18; Pulse Ox 97% on R/A; db 18:00 BP 123 / 74; Pulse 71; Resp 16; Pulse Ox 98% on R/A; db 19:00 BP 162 / 117; Pulse 86; Resp 16; Pulse Ox 98% ; db NIH Stroke Scale Scores: 13:00 NIHSS Score: 4 db 13:04 NIHSS Score: 4 rn MDM: 12:50 Patient medically screened. rn 12:57 ED course: CT head negative per Dr. Lehman. rn 13:12 Data reviewed: vital signs, nurses notes. rn 14:36 Care significantly affected by the following chronic conditions: Hypertension, CAD. rn Counseling: I had a detailed discussion with the patient and/or guardian regarding the historical points, exam findings, and any diagnostic results supporting the discharge/admit diagnosis, lab results, radiology results, the need for further work-up and treatment in the hospital. ED course: Pt has shown some improvement after TNKase. . 14:48 Consideration of Admission/Observation Patient was admitted/placed on observation. rn Escalation of care including admission/observation considered. Response to treatment: the patient's symptoms have mildly improved after treatment, and as a result, I will admit patient. ED course: I personally spent 35 minutes engaged in work directly related to the individual patient's care. This does not include any time spent performing procedures. The patient has been deemed critically ill because of acute cerebral infarction requiring rapid evaluation and treatment in timely manner, requiring TNK administration and time spent in chart review and medication reconciliation as well as consultation. 04/27 13:03 Order name: Basic Metabolic Panel; Complete Time: 14:01 rn 04/27 13:03 Order name: CBC with Diff; Complete Time: 14:01 rn 04/27 13:03 Order name: High Sensitivity Troponin; Complete Time: 14:01 rn 04/27 13:03 Order name: Protime (+inr); Complete Time: 14:01 rn 04/27 13:03 Order name: Ptt, Activated; Complete Time: 14:01 rn 04/27 13:19 Order name: Glucose, Ancillary Testing; Complete Time: 13:22 EDMS 04/27 15:52 Order name: RPR EDMS 04/27 15:52 Order name: Vitamin D, 25 (OH), TOTAL EDMS 04/27 15:52 Order name: Basic Metabolic Panel EDMS 04/27 15:52 Order name: Basic Metabolic Panel EDMS 04/27 15:52 Order name: Basic Metabolic Panel EDMS 04/27 15:52 Order name: Basic Metabolic Panel EDMS 04/27 15:52 Order name: Basic Metabolic Panel EDMS 04/27 15:52 Order name: Basic Metabolic Panel EDMS 04/27 15:52 Order name: CBC with Automated Diff EDMS 04/27 15:52 Order name: CBC with Automated Diff EDMS 04/27 15:52 Order name: CBC with Automated Diff EDMS 04/27 15:52 Order name: CBC with Automated Diff EDMS 04/27 15:52 Order name: CBC with Automated Diff EDMS 04/27 15:52 Order name: CBC with Automated Diff EDMS 04/27 15:52 Order name: Lipid Profile EDMS 04/27 15:52 Order name: Lipid Profile EDMS 04/27 15:52 Order name: Magnesium EDMS 04/27 15:52 Order name: Magnesium EDMS 04/27 15:52 Order name: Magnesium EDMS 04/27 15:52 Order name: Magnesium EDMS 04/27 15:52 Order name: Magnesium EDMS 04/27 15:52 Order name: Magnesium EDMS 04/27 15:52 Order name: Phosphorus EDMS 04/27 15:52 Order name: Phosphorus EDMS 04/27 15:52 Order name: Phosphorus EDMS 04/27 15:52 Order name: Phosphorus EDMS 04/27 15:52 Order name: Phosphorus EDMS 04/27 15:52 Order name: Phosphorus EDMS 04/27 15:52 Order name: T4,Total EDMS 04/27 15:52 Order name: T4,Total EDMS 04/27 15:52 Order name: Thyroid Stimulating Hormone EDMS 04/27 15:52 Order name: Thyroid Stimulating Hormone EDMS 04/27 15:52 Order name: Troponin High Sensitivity EDMS 04/27 15:52 Order name: Troponin High Sensitivity EDMS 04/27 15:52 Order name: Troponin High Sensitivity EDMS 04/27 15:52 Order name: Anti-Thrombin III Activity EDMS 04/27 15:52 Order name: C-ANCA Anti-Proteinase 3 EDMS 04/27 15:52 Order name: Factor V Leiden Mutation EDMS 04/27 15:52 Order name: Homocysteine EDMS 04/27 15:52 Order name: Miscellaneous Test Lab EDMS 04/27 15:52 Order name: P-ANCA Anti-Myeloperoxidase Ab EDMS 04/27 15:52 Order name: Protein C Antigen EDMS 04/27 15:52 Order name: Protein Electo w/M Rivera Serum EDMS 04/27 15:52 Order name: Protein S (Total EDMS 04/27 15:52 Order name: PROTHROMBIN GENE ANALYSIS (F2) EDMS 04/27 16:17 Order name: [id number] ABS EDMS 04/27 16:17 Order name: Cardiolipin Antibodies A,G,M EDMS 04/27 16:17 Order name: PHOSPHATIDYLSERINE/PT IGG,M EDMS 04/27 19:38 Order name: Vitamin B12 Level EDMS 04/27 19:39 Order name: Glucose, Ancillary Testing EDMS 04/27 21:22 Order name: Glucose, Ancillary Testing EDMS 04/27 23:21 Order name: Glucose, Ancillary Testing EDMS 04/28 00:25 Order name: Glucose, Ancillary Testing EDMS 04/28 02:58 Order name: Glucose, Ancillary Testing EDMS 04/28 03:25 Order name: Glucose, Ancillary Testing EDMS 04/27 13:03 Order name: CT Stroke Brain w/o Contrast; Complete Time: 14:01 rn 04/27 13:03 Order name: Stroke CXR 1 View; Complete Time: 14:47 rn 04/27 13:21 Order name: CT Head Angio; Complete Time: 14:47 rn 04/27 13:21 Order name: CT Neck Angio; Complete Time: 14:47 rn 04/27 15:52 Order name: Echo with Doppler EDNH 04/27 15:52 Order name: Stroke Protocol ED[facility] 04/27 18:13 Order name: MRI ED[facility] 04/27 13:03 Order name: EKG; Complete Time: 13:04 rn 04/27 15:52 Order name: IRF Screen ED[facility] 04/27 15:52 Order name: Physical Therapy Consult ED[facility] 04/27 15:52 Order name: Speech Therapy Consult ED[facility] 04/27 13:03 Order name: Accucheck; Complete Time: 13:28 rn 04/27 13:03 Order name: Cardiac monitoring; Complete Time: 13:28 rn 04/27 13:03 Order name: EKG - Nurse/Tech; Complete Time: 13:28 rn 04/27 13:03 Order name: IV Saline Lock; Complete Time: 13:28 rn 04/27 13:03 Order name: Labs collected and sent; Complete Time: 13:28 rn 04/27 13:03 Order name: NPO; Complete Time: 13:28 rn 04/27 13:03 Order name: O2 Per Protocol; Complete Time: 13:28 rn 04/27 13:03 Order name: O2 Sat Monitoring; Complete Time: 13:28 rn 04/27 13:03 Order name: Stroke Swallow Screen; Complete Time: 13:28 rn EC:41 Rate is 84 beats/min. Rhythm is regular. QRS [place] is Normal. AL interval is normal. QRS rn interval is normal. QT interval is normal. No Q waves. T waves are Normal. No ST changes noted. Clinical impression: NSR w/ Non-specific ST/T Changes. Interpreted by me. Reviewed by me. Administered Medications: 13:10 Drug: TNK FOR STROKE - Tenecteplase IV 0.25 mg/kg IV at per protocol once; MAX db DOSE 25 mg, IVP over 5 seconds {Co-Signature: es3 (Sharita Langley RN).} Route: IV; Rate: per protocol; Site: right antecubital; 13:30 Follow up: Response: No adverse reaction; IV Status: Completed infusion; IV Intake: db 4.4ml 15:55 Drug: foLIC Acid IVPB 1 mg IVPB once Route: IVPB; Site: right antecubital; db 19:22 Follow up: Response: No adverse reaction; IV Status: Completed infusion db 16:28 Drug: Ativan IVP 0.5 mg IVP once Route: IVP; Site: right antecubital; db 19:22 Follow up: Response: No adverse reaction db Point of Care Testing: Blood Glucose: 13:07 Blood Glucose: 211 mg/dL; db Ranges: Critical Glucose Levels:Adult <50 mg/dl or >400 mg/dl <40 mg/dl or >180 mg/dl Disposition Summary: 04/28/23 14:50 Hospitalization Ordered Notes: Hospitalization Status: Inpatient Admission rn Provider: Bradly Agosto rn Condition: Stable rn Problem: new rn Symptoms: have improved rn Bed/Room Type: Standard rn Location: Intensive Care Unit(04/29/23 02:13) Room Assignment: 1-(04/29/23 02:13) kl Diagnosis - Cerebral infarction, unspecified rn - Weakness rn - Paresthesia of skin rn Forms: - Medication Reconciliation Form rn - SBAR form rn - Leadership Thank You Letter project intern time excluding procedures: 14:48 Critical care time: Bedside Care: 30 minutes, Consultation: 5 minutes. Total time: 35 rn minutes NIH Stroke Scale - NIH Stroke Score Date: 04/28/2023 Time: 13:00 Total Score = 4 10. Dysarthria (speech clarity - read or repeat words) - 0(Normal) 11. Extinction and Inattention (visual/tactile/auditory/spatial/personal) - 0(No abnormality) 1a. Level of Consciousness (LOC) - 0(Alert) 1b. Level of Consciousness (LOC) (Month \T\ Age) - 0(Both) 1c. LOC Commands (Open \T\ Closes Eyes/Manager Regional) - 0(Both) 2. Best Gaze (Lateral Gaze Paresis) - 0(Normal) 3. Visual Field Loss - 0(No visual loss) 4. Facial Palsy - 1(Minor Paralysis) 5a. Left Arm: Motor (10-second hold) - 1(Drift) 5b. Right Arm: Motor (10-second hold) - 0(No drift) 6a. Left Leg: Motor (5-second hold - always test supine) - 1(Drift) 6b. Right Leg: Motor (5-second hold - always test supine) - 0(No drift) 7. Limb Ataxia (finger/nose \T\ heel/ann - test with eyes open) - 0(Absent) 8. Sensory Loss (pinprick arms/legs/face) - 1(Mild to moderate loss) 9. Best Language: Aphasia (description/naming/reading) - 0(No aphasia) Initials: allan NIH Stroke Scale - NIH Stroke Score Date: 04/28/2023 Time: 13:04 Total Score = 4 10. Dysarthria (speech clarity - read or repeat words) - 0(Normal) 11. Extinction and Inattention (visual/tactile/auditory/spatial/personal) - 0(No abnormality) 1a. Level of Consciousness (LOC) - 0(Alert) 1b. Level of Consciousness (LOC) (Month \T\ Age) - 0(Both) 1c. LOC Commands (Open \T\ Closes Eyes/Manager Regional) - 0(Both) 2. Best Gaze (Lateral Gaze Paresis) - 0(Normal) 3. Visual Field Loss - 0(No visual loss) 4. Facial Palsy - 1(Minor Paralysis) 5a. Left Arm: Motor (10-second hold) - 1(Drift) 5b. Right Arm: Motor (10-second hold) - 0(No drift) 6a. Left Leg: Motor (5-second hold - always test supine) - 1(Drift) 6b. Right Leg: Motor (5-second hold - always test supine) - 0(No drift) 7. Limb Ataxia (finger/nose \T\ heel/ann - test with eyes open) - 0(Absent) 8. Sensory Loss (pinprick arms/legs/face) - 1(Mild to moderate loss) 9. Best Language: Aphasia (description/naming/reading) - 0(No aphasia) Initials: rn Signatures: Dispatcher [employer] EDMS Maria Del CarmenRosa Isela lambert bd Fifi Jasso RN Tee Hylton MD MD rn Peltier, Brian, RN RN Yola Moran RN RN db Stanley, Emily RN es3 Corrections: (The following items were deleted from the chart) 15:46 14:50 Intensive Care Unit rn bd 15:46 14:50 rn bd 15:58 15:52 Chest Pa And Lat (2 Views) ordered. EDMS EDMS 16:16 15:52 Vitamin B12 Level ordered. EDMS EDMS 16:17 15:52 Cardiolipin Antibodies G,M ordered. EDMS EDMS 04/28 02:13 04/27 15:46 [facility] ER HOLD bd kl 04/28 02:13 04/27 15:46 ERHOLD- bd kl
--- NOTE | 2023-04-28 15:03 | P.HP ---
Certification for Inpatient Patient admitted to: Observation With expected LOS: >2 Midnights Patient will require the following post-hospital care: None Practitioner: I am a practitioner with admitting privileges, knowledge of patient current condition, hospital course, and medical plan of care. Services: Services provided to patient in accordance with Admission requirements found in Title 42 Section 412.3 of the Code of Federal Regulations Patient History Date of Service: 04/28/23 Reason for admission: CVA r/o History of Present Illness: Luis Schultz 58-year-old male with past medical history of Anxiety; CAD (NH,CABG 2014), GERD; Glaucoma; High Cholesterol; Hypertension; IDDM; who presents to the ED with complaints of left-sided weakness and slurred speech. He reports a similar episode yesterday which resolved quickly. He states he had to support himself so he didn't fall down, his hip was to weak to walk and his arm was drawn up to his side. NIHSS 4 on arrival to ED. On examination, NIHSS 0, he is able to speak clearly with direct thought, all extremities functioning and symmetrical. Initial vital BP 126 / 82; Pulse 86; Resp 16; Temp 98.1; Pulse Ox 100% on R/A Laboratory evaluations showing troponin 181, BUN/creatinine 21/1.46, GFR 55, serum glucose 220, sodium 133 CT brain reports": No acute intracranial abnormality is seen. If patient's symptoms persist MRI of the brain would be recommended" Head and neck CTA reports "Mild to moderate calcified plaque distal internal carotid arteries. Anterior cerebral, middle cerebral, posterior cerebral and basilar arteries do not demonstrate a significant stenosis. An aneurysm is not seen. No large vessel occlusion. IMPRESSION: No acute abnormality is displayed" Visualized great vessels unremarkable. Moderate calcified plaque distal right vertebral artery. Left vertebral artery hypoplastic. Mild plaque within Common carotid, internal carotid and external carotid arteries bilaterally. No dissection is seen. IMPRESSION: Calcified plaque distal right vertebral artery results in an approximately 55% stenosis" Chest x-ray reports "The lungs appear clear of acute infiltrate. The heart is normal size. Postsurgical changes involve the chest. IMPRESSION: No acute abnormalities displayed." Jorge will be admitted to hospitalist service for further evaluation and treatment of CVA rule out. Allergies No Known Drug Allergies Allergy (Verified 07/14/22 00:06) Unknown Home Medications: Amlodipine Besylate 10 mg PO DAILY 07/04/22 Aspirin [Ecotrin 81 MG] 81 mg PO DAILY 07/04/22 Carisoprodol [Soma] 350 mg PO TID PRN 07/04/22 Clopidogrel Bisulfate [Plavix*] 75 mg PO DAILY 07/04/22 Hydrocodone/Acetaminophen [Hydrocodone-Acetamin 10-325 mg] 1 tab PO Q6H PRN 07/04/22 Insulin Glargine,Hum.rec.anlog [Lantus] 50 units SQ BEDTIME 07/04/22 Losartan Potassium 100 mg PO DAILY 07/04/22 Metformin HCl 1,000 mg PO BIDWM 07/04/22 Liraglutide [Victoza 2-Imer] 1.8 mg SQ DAILY 07/05/22 carvediloL [Coreg*] 25 mg PO BID #90 tab 07/15/22 Amlodipine [Norvasc*] 10 mg PO DAILY 04/13/23 Atorvastatin Calcium [Lipitor*] 40 mg PO BEDTIME 04/13/23 Hydrocodone 10/APAP 325 [[place] 10/325*] 1 tab PO Q6H PRN #30 tab 04/15/23 - Past Medical/Surgical History Diabetic: Yes -: X3 MIs -: IDDM -: chronic back pain -: cataracts -: glaucoma rt eye -: cellulitis -: staph infection with CABG -: Glaucoma -: Staph infection wound chest -: cardiac cath -: lumbar epidural injection x3 -: CABG (May 29 2014) x 4 vessels -: Cardiac stents x2 01/20/2022 -: Cardiac stents x2 01/20/2022 Psychosocial/ Personal History: Patient lives at home with his . - Family History Mother -: Heart disease, Diabetes Father -: Stroke, Cancer Notes: Multiple CANCER Sister -: Cancer Notes: liver - Social History Smoking Status: Never smoker Alcohol use: No CD- Drugs: No Caffeine use: Yes Review of Systems General: Weakness Neurological: Weakness (left sided), Change in Speech Physical Examination - Physical Exam General: Alert, In no apparent distress, Oriented x3 HEENT: Atraumatic, Normocephalic, PERRLA Neck: Supple, 2+ carotid pulse no bruit, JVD not distended Respiratory: Clear to auscultation bilaterally, Normal air movement Cardiovascular: Normal pulses, Regular rate/rhythm, Normal S1 S2 Capillary refill: <2 Seconds Gastrointestinal: Normal bowel sounds, Soft and benign Musculoskeletal: No swelling, No contractures, No erythema Neurological: Normal speech, Normal strength at 5/5 x4 extr, Normal tone - Studies Laboratory Data (last 24 hrs) 04/28/23 04/28/23 04/28/23 13:09 13:09 13:09 WBC 6.40 Hgb 14.7 Hct 41.9 Plt Count 250 PT 11.2 INR 1.02 APTT 33.2 Sodium 133 L Potassium 4.2 BUN 21 H Creatinine 1.46 H Glucose 220 H Assessment and Plan - Plan Assessment and plan CVA versus TIA Elevated troponin Plaque to distal right vertebral artery Plaque to common carotid, internal carotid, and external carotid bilaterally -Allow permissive hypertension overnight -Troponin 181, serial pending -Echo ordered -MRI brain ordered -Continuous telemetry -Dr. Yu consulted -TNK given in the ED, will admit to ICU -TSH/free T4, A1c, lipid panel -Asa, statin, folic acide daily -NIHSS 0 -CT brain reports": No acute intracranial abnormality is seen. If patient's symptoms persist MRI of the brain would be recommended" -Head and neck CTA reports "Mild to moderate calcified plaque distal internal carotid arteries. Anterior cerebral, middle cerebral, posterior cerebral and basilar arteries do not demonstrate a significant stenosis. An aneurysm is not seen. No large vessel occlusion. IMPRESSION: No acute abnormality is displayed" Visualized great vessels unremarkable. Moderate calcified plaque distal right vertebral artery. Left vertebral artery hypoplastic. Mild plaque within Common carotid, internal carotid and external carotid arteries bilaterally. No dissection is seen. IMPRESSION: Calcified plaque distal right vertebral artery results in an approximately 55% stenosis" THU -BUN/creatinine 21/1.46, GFR 55 -IV fluids History of diabetes mellitusIDDM with hyperglycemia -Accu-Chek with sliding scale insulin -Serum glucose 220 Hyponatremia -Sodium 133 -Gentle IV fluids History of CAD status post CABG -Restart home medications -Continuous telemetry HX HTN Hx NLD -restart home medications DVT PPx SCDs Full code 2 to 3 days Discharge Plan: Home Plan to discharge in: 48 Hours - Advance Directives Does patient have a Living Will: No Does patient have a Durable POA for Healthcare: No Time Spent Managing Pts Care (In Minutes): 50
[2023-04-28] MEDS ORDERED: FOLIC ACID 5 MG/ML VIAL ONE (15:53)
[2023-04-28] MEDS ORDERED: LORazepam 2 MG/ML VIAL ONE (16:29)
[2023-04-28] MEDS: INSULIN REGULAR (HUMAN) 100 UNIT/ML SQ SCH (16:30)
--- NOTE | 2023-04-28 18:13 | RAD REPORT ---
EXAM DESCRIPTION: MRI - Brain Wo Cont - 04/28/2023 4:58 pm CLINICAL HISTORY: Left-sided weakness COMPARISON: 2014 MRI TECHNIQUE: Axial, sagittal, and coronal magnetic resonance images of the brain were obtained. FINDINGS: Small area of increased signal cerebellar vermis may represent an old infarct. 1 centimeter left cerebellar pontine angle mass unchanged in appearance may represent dermoid or lipo ma Diffusion-weighted/ADC mapping does not reveal evidence of acute infarction. The ventricles are normal caliber. An extra-axial fluid collection is not noted. Fluid within the sinuses/mastoids is not seen IMPRESSION: No acute intracranial abnormality noted
[2023-04-28] MEDS ORDERED: NA CHLORIDE 0.9% 1,000 ML ONE (19:24)
[2023-04-28] MEDS ORDERED: ONDANSETRON 4 MG/2 ML VIAL ONE (19:24)
[2023-04-28] MEDS: ONDANSETRON 4 MG/2 ML VIAL IV ONE (19:30)
[2023-04-28] MEDS: NA CHLORIDE 0.9% 1,000 ML IV SCH (19:30)
[2023-04-28] MEDS: ATORVASTATIN 40 MG TAB PO SCH (21:20)
[2023-04-28] MEDS ORDERED: ATORVASTATIN 40 MG TAB ONE (21:21)
[2023-04-28] MEDS ORDERED: INSULIN REGULAR (HUMAN) 100 UNIT/ML ONE (21:21)
[2023-04-28] MEDS: PROMETHAZINE INJ 25 MG/ML AMP IV PRN (21:55)
[2023-04-29] MEDS ORDERED: INSULIN REGULAR (HUMAN) 100 UNIT/ML ONE ×2 (00:25→12:24)
[2023-04-29] MEDS: ONDANSETRON 4 MG/2 ML VIAL IV ONE (01:12)
[2023-04-29] MEDS ORDERED: ONDANSETRON 4 MG/2 ML VIAL ONE (01:14)
[2023-04-29 01:45] LABS: RPR (Rapid Plasma Reagin) NON-REACT (NON-REACT)
[2023-04-29 02:16] VITALS: BMI 32.4
[2023-04-29] MEDS ORDERED: NA CHLORIDE 0.9% 1,000 ML ONE (02:56)
[2023-04-29 02:57] LABS: Absolute Lymphocytes (CBC) 0.7 K/uL (0.7-4.9); Basophils % 0.2 % (0-1.3); Hematocrit 39.1 % (39.6-49.0); Lymphocytes % 6.7 % (15.3-44.8); MCV 86.8 fL (80-100); MPV 7.2 fL (7.6-11.3); Platelets 226 thou/uL (152-406)
[2023-04-29 03:24] LABS: Anion Gap 12.8 mEq/L (5.0-15.0); Magnesium 1.8 mg/dL (1.6-2.4); Phosphorus 3.2 mg/dL (2.5-4.9); Potassium 3.8 mEq/L (3.5-5.1); T4,Total 7.4 ug/dL (4.5-12.1); Thyroid Stimulating Hormone 1.07 uIU/mL (0.358-3.740)
[2023-04-29 03:40] LABS: Troponin High Sensitivity 111.9 pg/mL (<58.9)
[2023-04-29 03:50] VITALS: O2SAT 98
[2023-04-29 04:43] LABS: Band Neutrophils 7 % (0-1)
[2023-04-29 04:44] LABS: Blood Morphology Comment NOT SEEN (NOT SEEN); Platelet Estimate ADEQ
[2023-04-29] MEDS: MAGNESIUM SULFATE 1 gm IVPB 1 GM/100 ML BAG IV ONE (06:00)
--- NOTE | 2023-04-29 06:38 | P.PN ---
Date of Service: 04/29/23 Subjective complaining of orthostatic tremors no other complaints ROS 10 point ROS as noted above, otherwise negative Physical Exam General: AAO x3, NAD HEENT: Atraumatic, Normocephalic, PERRLA Neck: Supple, 2+ carotid pulse no bruit, JVD not distended Respiratory: Clear to auscultation bilaterally, Normal air movement Cardiovascular: Normal pulses, RRR, S1 S2 present, no murmur noted Capillary refill: <2 Seconds Gastrointestinal: Normal bowel sounds, Soft and benign, NT/ND Musculoskeletal: No swelling, No contractures, No erythema Neurological: Normal speech, Normal strength at 5/5 x4 extr, Normal tone Vitals Reviewed Problem list CVA versus TIA Elevated troponin Plaque to distal right vertebral artery Plaque to common carotid, internal carotid, and external carotid bilaterally THU History of diabetes mellitusIDDM with hyperglycemia Hyponatremia History of CAD status post CABG Plan CVA versus TIA Elevated troponin Plaque to distal right vertebral artery Plaque to common carotid, internal carotid, and external carotid bilaterally Orthostatic tremor -Allow permissive hypertension overnight -Troponin 181/165.4/111.9- down trending -Echo ordered -Continuous telemetry -Dr. Yu consulted -TNK given in the ED, will admit to ICU -TSH/free T4 1.070/7.4, A1c 7.7, lipid panel-Triglycerides 71 cholesterol 115 LDL 59 HDL 42 cholesterol HDL ratio 2.74 -Vitamin D 8.7- will replace -Vitamin B12- 383 -Asa, statin, folic acid daily -NIHSS 0 -CT brain reports "No acute intracranial abnormality is seen. If patient's symptoms persist MRI of the brain would be recommended" -Head and neck CTA reports "Mild to moderate calcified plaque distal internal carotid arteries. Anterior cerebral, middle cerebral, posterior cerebral and basilar arteries do not demonstrate a significant stenosis. An aneurysm is not seen. No large vessel occlusion. IMPRESSION: No acute abnormality is displayed" Visualized great vessels unremarkable. Moderate calcified plaque distal right vertebral artery. Left vertebral artery hypoplastic. Mild plaque within Common carotid, internal carotid and external carotid arteries bilaterally. No dissection is seen. IMPRESSION: Calcified plaque distal right vertebral artery results in an approximately 55% stenosis" -MRI brain reports " No acute intracranial abnormality noted, Small area of increased signal cerebellar vermis may represent an old infarct. 1 centimeter left cerebellar pontine angle mass unchanged in appearance may represent dermoid or lipoma. Diffusion-weighted/ADC mapping does not reveal evidence of acute." infarction. -repeat CT head with new onset of orthostatic tremors THU -BUN/creatinine 19/0.97, GFR 89 -IV fluids History of diabetes mellitusIDDM with hyperglycemia -Accu-Chek with sliding scale insulin -Serum glucose 234 Hyponatremia -Sodium 135 -Gentle IV fluids History of CAD status post CABG -home medications -Continuous telemetry HX HTN Hx NLD -restart home medications (04/28) -Permissive HTN allowed OVN (04/27) DVT PPx therapeutic Lovenox (04/28) Full code 2 to 3 days Discharge Plan: Home Plan to discharge in: 48 Hours
[2023-04-29] MEDS ORDERED: PROMETHAZINE INJ 25 MG/ML AMP ONE ×2 (07:07→07:10)
[2023-04-29] MEDS ORDERED: carisoprodoL 350 MG TAB PO PRN (08:20)
[2023-04-29] MEDS ORDERED: POTASSIUM 25 MEQ EFFERV TAB PO ONE (09:00)
[2023-04-29] MEDS ORDERED: ASPIRIN EC 81 MG TAB PO ONE (09:22)
[2023-04-29] MEDS ORDERED: HYDROCODONE/APAP 5/325 MG TAB ONE (09:22)
[2023-04-29] MEDS: ASPIRIN EC 81 MG TAB PO SCH (09:25)
[2023-04-29] MEDS: carvediloL 25 MG TAB PO SCH (09:25)
[2023-04-29] MEDS ORDERED: HYDROCODONE/APAP 10/325 TAB ONE (09:27)
[2023-04-29] MEDS: HYDROCODONE/APAP 10/325 TAB PO PRN (09:27)
[2023-04-29] MEDS: VITAMIN D 5,000 UNIT CAP PO SCH (09:28)
[2023-04-29] MEDS: POTASSIUM CL SA 10 MEQ TAB PO ONE (09:28)
[2023-04-29] MEDS ORDERED: CLOPIDOGREL 75 MG TABLET ONE (09:29)
[2023-04-29] MEDS: CLOPIDOGREL 75 MG TABLET PO SCH (09:30)
[2023-04-29 11:25] VITALS: TEMP 97.9
--- NOTE | 2023-04-29 14:05 | RAD REPORT ---
EXAM DESCRIPTION: CT - Head Brain Wo Cont - 04/29/2023 1:52 pm CLINICAL HISTORY: r/o bleed COMPARISON: Head angio dated 04/28/2023; Ct Stroke Brain Wo Cont dated 04/28/2023; Brain Wo Cont dated TECHNIQUE: Noncontrast head CT images ad were obtained without IV contrast. Multiplanar reformats we re generated and reviewed. All CT scans are performed using dose optimization technique as appropriate and may include automated exposure control or mA/KV adjustment according to patient size. FINDINGS: Interval development of a rounded/ ovoid parenchymal hemorrhage along the superior vermis measuring 2.4 x 2.3 x 2.5 cm in greatest AP, transverse, and CC dimensions. Minimal adjacent vasogeni c edema along the vermis. The mass effect upon the fourth ventricle which is effaced. Midline structu res are otherwise unremarkable. Mild distention of the lateral ventricles particularly the trigones, compared to the prior exam. Gómez-white matter differentiation elsewhere is preserved, without evidence of acute infarct. No abnor mal extra-axial fluid collections. . Ovoid fat density 11 mm structure along the left ambient cistern is stable, suggestive of a lipoma. Mastoid air cells and visualized portions of the paranasal sinuses are clear. No acute bony findings. IMPRESSION: Interval development of rounded superior vermian 2.5 cm parenchymal hemorrhage. Mass effect is seen upon the fourth ventricle. Interval development of mild hydrocephalus particularl y of the left lateral ventricle. The findings were communicated to Dr. Agosto on 04/29/2023 at 13:57 hours.
--- NOTE | 2023-04-29 14:16 | EKG ---
Test Date: 2023-04-28 Test Time: 13:05:15 Supervisor [place]ip[place] Placing: HIEU MEASUREMENT RESULTS: Intervals: Rate: 84 AK: 150 QRSD: 110 QT: 376 QTc: 444 [place]: P: 54 AK: 150 QRS: -44 T: 100 INTERPRETIVE STATEMENTS: Normal sinus rhythm Left axis deviation Septal infarct, age undetermined T wave abnormality, consider lateral ischemia Abnormal ECG Compared to ECG 04/13/2023 15:11:06 Left-axis deviation now present T-wave abnormality now present Possible ischemia now present Myocardial infarct finding still present Electronically Signed On 04-29-23 14:13:08 POLYMERIZATION KETTLE OPERATOR by Jose Maria Adair
[2023-04-29] MEDS: MANNITOL 20% 1,000 ML IV ONE (14:38)
[2023-04-29] MEDS ORDERED: NA CHLORIDE 0.9% 250 ML IV SCH ×2 (16:00)
[2023-04-29 16:05] VITALS: BP 140/85
[2023-04-29] MEDS ORDERED: INSULIN GLARGINE 100 UNIT/ML SQ SCH (21:00)
[2023-04-29] MEDS ORDERED: ENOXAPARIN 100 MG/ML SYR SQ SCH (21:00)
--- NOTE | 2023-04-30 07:50 | P.DS ---
Admission Date: 04/28/23 Discharge Date: 04/29/23 Disposition: TRANSFER TO [facility] Discharge Condition: CRITICAL Reason for Admission: CVA r/o Brief History of Present Illness: Diagnosis CVA versus TIA Elevated troponin Plaque to distal right vertebral artery Plaque to common carotid, internal carotid, and external carotid bilaterally THU History of diabetes mellitusIDDM with hyperglycemia Hyponatremia History of CAD status post CABG Orthostatic tremor HPI 04/28/23 Luis Schultz 58-year-old male with past medical history of Anxiety; CAD (CT,CABG 2014), GERD; Glaucoma; High Cholesterol; Hypertension; IDDM; who presents to the ED with complaints of left-sided weakness and slurred speech. He reports a similar episode yesterday which resolved quickly. He states he had to support himself so he didn't fall down, his hip was to weak to walk and his arm was drawn up to his side. NIHSS 4 on arrival to ED. On examination, NIHSS 0, he is able to speak clearly with direct thought, all extremities functioning and symmetrical. Initial vital BP 126 / 82; Pulse 86; Resp 16; Temp 98.1; Pulse Ox 100% on R/A Laboratory evaluations showing troponin 181, BUN/creatinine 21/1.46, GFR 55, serum glucose 220, sodium 133 CT brain reports": No acute intracranial abnormality is seen. If patient's symptoms persist MRI of the brain would be recommended" Head and neck CTA reports "Mild to moderate calcified plaque distal internal carotid arteries. Anterior cerebral, middle cerebral, posterior cerebral and basilar arteries do not demonstrate a significant stenosis. An aneurysm is not seen. No large vessel occlusion. IMPRESSION: No acute abnormality is displayed" Visualized great vessels unremarkable. Moderate calcified plaque distal right vertebral artery. Left vertebral artery hypoplastic. Mild plaque within Common carotid, internal carotid and external carotid arteries bilaterally. No dissection is seen. IMPRESSION: Calcified plaque distal right vertebral artery results in an approximately 55% stenosis" Chest x-ray reports "The lungs appear clear of acute infiltrate. The heart is normal size. Postsurgical changes involve the chest. IMPRESSION: No acute abnormalities displayed." Jorge will be admitted to hospitalist service for further evaluation and treatment of CVA rule out. Hospital Course: Jorge Schultz is a pleasant 58 year old male with a past medical history significant for Anxiety, CAD (CT,CABG 2014), GERD, Glaucoma, High Cholesterol, Hypertension, IDDM who was admitted to the [facility] on 04/28/23 for CVA rule out. Jorge Schultz presented to the ED with chief complaint of left-sdied weakness and slurred speech. NIHSS 4 on arrival to the ED. TNK administered while in the ED. Symptoms resolved during hospitalist's initial evaluation. Imaging on admission 04/28/23: Head CTA impression shows no acute abnormality displayed. Neck CTA impression shows calcified plaque distal right vertebral artery resulting in approximately 55% stenosis. Chest x-ray reports "The lungs appear clear of acute infiltrate. The heart is normal size. Postsurgical changes involve the chest. IMPRESSION: No acute abnormalities displayed." On 04/29/23, Jorge was seen on morning rounds and found to be experiencing orthostatic tremors, left eye drooping, and a headache that he reported as come and go. He reports vomiting started around 6 or 8 pm until midnight. This assessment required another CT head imaging. Imaging on 04/29/23: CT head WO contrast reports " Interval development of rounded superior vermian 2.5 cm parenchymal hemorrhage. Mass effect is seen upon the fourth ventricle. Interval development of mild hydrocephalus particularly of the left lateral ventricle." Transfer initiated with [facility]. Mannitol and cryopercipitate ordered. Per chart review: @1420 initiated a transfer with Turner Donahue from the [facility] @1444 administrative approval given by Anna Merino/ patient has been accepted to [place] [address] bed 7519/ Dr. Mark Suárez has accepted the patient in transfer/ report to be called to [phone] @2140 [employer] called for transport Jorge was successfully transferred. Physical Exam prior to transfer General: AAO x3, NAD HEENT: Atraumatic, Normocephalic, PERRLA, left eye droop Neck: Supple, 2+ carotid pulse no bruit, JVD not distended Respiratory: Clear to auscultation bilaterally, Normal air movement Cardiovascular: Normal pulses, RRR, S1 S2 present, no murmur noted Capillary refill: <2 Seconds Gastrointestinal: Normal bowel sounds, Soft and benign, NT/ND Musculoskeletal: No swelling, No contractures, No erythema, orthostatic tremors Neurological: Normal speech, Normal strength at 5/5 x4 extr, Normal tone Vital Signs/Physical Exam: Temp Pulse Resp BP Pulse Ox 97.9 F 89 17 140/85 97 04/29/23 08:00 04/29/23 15:00 04/29/23 15:00 04/29/23 15:00 04/29/23 15:00 Laboratory Data at Discharge: WBC 10.00 thou/uL (4.3-10.9) 04/29/23 02:40 Hgb 13.7 g/dL (13.6-17.9) 04/29/23 02:40 Hct 39.1 % (39.6-49.0) L 04/29/23 02:40 Plt Count 226 thou/uL (152-406) 04/29/23 02:40 PT 11.2 SECONDS (9.5-12.5) 04/28/23 13:09 INR 1.02 04/28/23 13:09 APTT 33.2 SECONDS (24.3-36.9) 04/28/23 13:09 Sodium 135 mEq/L (136-145) L 04/29/23 02:40 Potassium 3.8 mEq/L (3.5-5.1) 04/29/23 02:40 BUN 19 mg/dL (7-18) H 04/29/23 02:40 Creatinine 0.97 mg/dL (0.70-1.30) 04/29/23 02:40 Glucose 234 mg/dL (74-106) H 04/29/23 02:40 Phosphorus 3.2 mg/dL (2.5-4.9) 04/29/23 02:40 Magnesium 1.8 mg/dL (1.6-2.4) 04/29/23 02:40 Triglycerides 71 mg/dL (<150) 04/29/23 02:40 Cholesterol 115 mg/dL (<200) 04/29/23 02:40 HDL Cholesterol 42 mg/dL (40-60) 04/29/23 02:40 Cholesterol/HDL Ratio 2.74 04/29/23 02:40 Home Medications: Aspirin [Ecotrin 81 MG] 81 mg PO DAILY 07/04/22 Carisoprodol [Soma] 350 mg PO PRN PRN 07/04/22 Clopidogrel Bisulfate [Plavix*] 75 mg PO DAILY 07/04/22 Hydrocodone/Acetaminophen [Hydrocodone-Acetamin 10-325 mg] 1 tab PO Q6H PRN 07/04/22 Insulin Glargine,Hum.rec.anlog [Lantus] 50 units SQ BEDTIME 07/04/22 Losartan Potassium 100 mg PO DAILY 07/04/22 Metformin HCl 1,000 mg PO BIDWM 07/04/22 Liraglutide [Victoza 2-Imer] 1.8 mg SQ DAILY 07/05/22 carvediloL [Coreg*] 25 mg PO BID #90 tab 07/15/22 Amlodipine [Norvasc*] 10 mg PO DAILY 04/13/23 Atorvastatin Calcium [Lipitor*] 40 mg PO BEDTIME 04/13/23 Hydrocodone 10/APAP 325 [[place] 10/325*] 1 tab PO Q6H PRN #30 tab 04/15/23 Alprazolam [Xanax] 0.5 mg PO TID PRN 04/29/23 Followup: Felipe Sinha MD [Primary Care Provider] - Time spent managing pt's care (in minutes): 50
[2023-05-02 00:01] LABS: Anti-Thrombin III Activity 137 % normal (80-135)
[2023-05-02 05:41] LABS: Phosphatidylser & Prothrom IgG <9 U (<=30); Phosphatidylser & Prothrom IgM 11 U (<=30)
[2023-05-03 20:25] LABS: Albumin, (SPE) 4.6 g/dL (3.8-4.8); Alpha-1-Globulins 0.3 g/dL (0.2-0.3); Alpha-2-Globulins 1.2 g/dL (0.5-0.9); C-ANCA Anti-Proteinase 3 <1.0 AI (<1.0); Gamma Globulins 1.4 g/dL (0.8-1.7); INTERPRETATION REPORT
== END 2023-04-29 15:10 | disposition short-term general hospital (02) ==
LOC: ER 12:46 → ERHOLD 15:43 → 3RD-ICU 04-29 02:54
PROVIDERS: ADMIT Internal Medicine; ATTEND Internal Medicine
DX: I61.5 Nontraumatic intracerebral hemorrhage, intraventricular (principal); G91.9 Hydrocephalus, unspecified; I65.23 Occlusion and stenosis of bilateral carotid arteries; I67.2 Cerebral atherosclerosis; I25.10 Atherosclerotic heart disease of native coronary artery without angina pectoris; I25.2 Old myocardial infarction; R47.81 Slurred speech; G83.24 Monoplegia of upper limb affecting left nondominant side; R51.9 Headache, unspecified; F41.9 Anxiety disorder, unspecified; K21.9 Gastro-esophageal reflux disease without esophagitis; G25.2 Other specified forms of tremor; H40.9 Unspecified glaucoma; E78.00 Pure hypercholesterolemia, unspecified; I10 Essential (primary) hypertension; E11.9 Type 2 diabetes mellitus without complications; R29.704 NIHSS score 4; N17.9 Acute kidney failure, unspecified; E11.65 Type 2 diabetes mellitus with hyperglycemia; E87.1 Hypo-osmolality and hyponatremia; R79.89 Other specified abnormal findings of blood chemistry; Z79.4 Long term (current) use of insulin; Z95.1 Presence of aortocoronary bypass graft
CPT/HCPCS: 36415; 70450; 70496; 70498; 70551; 71045; 80048; 80061; 81240; 81241; 82306; 82607; 82947; 83036; 83090; 83516; 83735; 84100; 84165; 84436; 84443; 84484; 85025; 85300; 85302; 85305; 85306; 85610; 85730; 86021; 86146; 86147; 86592; 86900; 86901; 92977; 93005; 96365; 96366; 96367; 96375; 97112; 97161; 99291; 99292; G0378; J1815; J2405; J2550; J3101; J3475; J7030; Q9967

== ENCOUNTER 2023-06-01 12:29 | Emergency (ER) | payer OTHER ==
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
[2023-06-01 14:44] VITALS: BP 108/77; TEMP 97.1; O2SAT 99
== END 2023-06-01 14:09 | disposition home or self-care (01) ==
LOC: ER 12:29
DX: M54.9 Dorsalgia, unspecified (principal); M54.2 Cervicalgia; V49.59XA Passenger injured in collision with other motor vehicles in traffic accident, initial encounter; Z95.1 Presence of aortocoronary bypass graft

== ENCOUNTER 2023-10-28 09:40 | Inpatient (IN) | payer SELFPAY ==
[2023-10-28 10:34] LABS: Absolute Eosinophils 0.1 K/uL (0-0.5); Absolute Lymphocytes (CBC) 1.1 K/uL (0.7-4.9); Absolute Monocytes 0.6 K/uL (0.1-1.3); Absolute Neutrophil 6.3 K/uL (1.8-8.0); Basophils % 0.4 % (0-1.3); Eosinophils % 1.4 % (0-4.4); Hematocrit 44.7 % (39.6-49.0); Lymphocytes % 13.8 % (15.3-44.8); MCH 29.6 pg (27.0-35.0); MCHC 33.5 g/dL (32.0-36.0); MCV 88.5 fL (80-100); MPV 7.9 fL (7.6-11.3); Neutrophils % 77.4 % (41.7-73.7); Platelets 187 thou/uL (152-406); RBC Red Blood Cell Count 5.05 M/uL (4.33-5.43)
[2023-10-28 10:37] LABS: PT Prothrombin Time 12.4 SECONDS (9.4-12.5); Protime INR 1.11
[2023-10-28 10:56] LABS: ALT/SGPT 18 U/L (16-61); Albumin 3.5 g/dL (3.4-5.0); Albumin/Globulin Ratio 0.8 (1.1-1.8); Alkaline Phosphatase 93 U/L (45-117); Anion Gap 13.7 mEq/L (5.0-15.0); BUN Blood Urea Nitrogen 33 mg/dL (7-18); Bicarbonate 21 mEq/L (21-32); Bilirubin Total 0.5 mg/dL (0.2-1.0); Globulin 4.3 g/dL (2.3-3.5); Glomerular Filtration Rate 26 ml/min (=/>90); Magnesium 1.7 mg/dL (1.6-2.4); NT PRO-BNP 10293 pg/mL (<125); Potassium 4.7 mEq/L (3.5-5.1); Protein, Total 7.8 g/dL (6.4-8.2); Sodium Level 130 mEq/L (136-145); Troponin High Sensitivity 16.9 pg/mL (<58.9)
[2023-10-28 10:57] LABS: AST/SGOT < 10 U/L (15-37); Bilirubin Direct < 0.2 mg/dL (0-0.2); Bilirubin Indirect, Calculated 0.3 mg/dL (0.2-0.8)
[2023-10-28 11:00] LABS: Glucose Level 444 mg/dL (74-106)
[2023-10-28] MEDS ORDERED: NA CHLORIDE 0.9% 1,000 ML ONE (11:08)
[2023-10-28] MEDS ORDERED: NA CHLORIDE 0.9% 500 ML ONE (11:08)
--- NOTE | 2023-10-28 11:22 | RAD REPORT ---
EXAM DESCRIPTION: Charles Single View10/28/2023 10:30 am CLINICAL HISTORY: Chest pain COMPARISON: July 2023 FINDINGS: The lungs appear clear of acute infiltrate. The heart is mildly enlarged. Postsurgical ch anges involve chest IMPRESSION: No acute abnormalities displayed
--- NOTE | 2023-10-28 11:58 | EDPHYS ---
Physician Documentation [facility] Name: Jorge Schultz Jr Age: 58 yrs Sex: Male : 1965 Arrival Date: 10/28/2023 Time: 09:40 Bed 13 Private MD: ED Physician Claudia Alaczar HPI: 10/27 10:21 This 58 yrs old Male presents to ER via Ambulatory with complaints of Low sp3 Blood Pressure, Shortness Of Breath. 10:21 58-year-old male with extensive cardiac history including hyperlipidemia, hypertension, sp3 CAD, anxiety with multiple visits to the ER for repetitive chest pain episodes presents again today for similar chest pain/shortness of breath episode. Patient states that he did not take his blood pressure prior to taking his blood pressure medication and then subsequently also had near syncope and low blood pressure. Patient has had similar symptoms in the past. Currently patient is having mild shortness of breath and mild chest pain but is feeling extremely weak. On review of systems he denies fever, headache, neck pain, back pain, abdominal pain, vomiting, diarrhea, rash, or any other signs or symptoms on ROS at this time.. Historical: - Allergies: 09:57 No Known Allergies; dd2 - PMHx: :57 Anxiety; Asthma; CAD; GERD; Glaucoma; High Cholesterol; Hypertension; IDDM; Myocardial dd2 infarction; - PSHx: :57 CABG; Stented artery; dd2 - Immunization history:: Adult Immunizations unknown. - Infectious Disease History:: Denies. - Social history:: Smoking status: Patient denies any tobacco usage or history of. ROS: 10:22 Constitutional: Negative for fever, chills, and weight loss, Eyes: Negative for injury, sp3 pain, redness, and discharge, ENT: Negative for injury, pain, and discharge, Neck: Negative for injury, pain, and swelling, Abdomen/GI: Negative for abdominal pain, nausea, vomiting, diarrhea, and constipation, : Negative for injury, bleeding, discharge, and swelling, MS/Extremity: Negative for injury and deformity, Skin: Negative for injury, rash, and discoloration, Psych: Negative for depression, anxiety, suicide ideation, homicidal ideation, and hallucinations, Allergy/Immunology: Negative for hives, rash, and allergies, Endocrine: Negative for neck swelling, polydipsia, polyuria, polyphagia, and marked weight changes, Hematologic/Lymphatic: Negative for swollen nodes, abnormal bleeding, and unusual bruising, 10:22 All other systems are negative, Exam: 10:22 Constitutional: This is a well developed, well nourished patient who is awake, alert, sp3 and in no acute distress. Head/Face: Normocephalic, atraumatic. Eyes: Pupils equal round and reactive to light, extra-ocular motions intact. Lids and lashes normal. Conjunctiva and sclera are non-icteric and not injected. Cornea within normal limits. Periorbital areas with no swelling, redness, or edema. Neck: Trachea midline, no thyromegaly or masses palpated, and no cervical lymphadenopathy. Supple, full range of motion without nuchal rigidity, or vertebral point tenderness. No Meningismus. Chest/axilla: Normal chest wall appearance and motion. Nontender with no deformity. No lesions are appreciated. Cardiovascular: Regular rate and rhythm with a normal S1 and S2. No gallops, murmurs, or rubs. Normal PMI, no JVD. No pulse deficits. Respiratory: Lungs have equal breath sounds bilaterally, clear to auscultation and percussion. No rales, rhonchi or wheezes noted. No increased work of breathing, no retractions or nasal flaring. Abdomen/GI: Soft, non-tender, with normal bowel sounds. No distension or tympany. No guarding or rebound. No evidence of tenderness throughout. Back: No spinal tenderness. No costovertebral tenderness. Full range of motion. Skin: Warm, dry with normal turgor. Normal color with no rashes, no lesions, and no evidence of cellulitis. MS/ Extremity: Pulses equal, no cyanosis. Neurovascular intact. Full, normal range of motion. Neuro: Awake and alert, GCS 15, oriented to person, place, time, and situation. Cranial nerves II-XII grossly intact. Motor strength 5/5 in all extremities. Sensory grossly intact. Cerebellar exam normal. Normal gait. Psych: Awake, alert, with orientation to person, place and time. Behavior, mood, and affect are within normal limits. 10:22 ECG was reviewed by the Attending Physician. EKG demonstrates sinus bradycardia at 56 bpm with normal intervals, leftward axis and nonspecific diffuse ST's ST changes without evidence of acute ischemia. Vital Signs: 09:51 BP 89 / 63; Pulse 59; Resp 15; Temp 97.3; Pulse Ox 100% ; Weight 83.91 kg; Height 5 ft. dd2 5 in. ; 10:31 BP 95 / 72; Pulse 56; Resp 18; Temp 98; Pulse Ox 99% on R/A; kj2 10:48 BP 93 / 65 Sitting; Pulse 51; Resp 16; Temp 97.9; Pulse Ox 100% on R/A; bc6 10:49 BP 88 / 69 Standing; Pulse 63; Resp 16; Temp 97.9; Pulse Ox 98% on R/A; bc6 10:50 BP 90 / 58 Supine; Pulse 55; Resp 17; Temp 97.9; Pulse Ox 97% on R/A; bc6 11:22 BP 106 / 64; Pulse 59; Resp 18; Pulse Ox 100% on R/A; kj2 12:44 BP 120 / 82; Pulse 66; Resp 18; Temp 98; Pulse Ox 100% on R/A; kj2 09:51 Body Mass Index 30.79 (83.91 kg, 165.1 cm) dd2 MDM: 10:01 Patient medically screened. sp3 10:24 Data reviewed: vital signs, nurses notes, old medical records, lab test result(s), EKG, sp3 radiologic studies. ED course: 58-year-old male with PMH above now with chest pain and shortness of breath and hypotension after taking blood pressure medication. He is feeling improved at this time. Differential diagnosis includes medication related side effect, acute coronary syndrome, other pulmonary pathology, CHF, among others. Workup will include full cardiac workup and we will also bolus 500 mL of normal saline and follow orthostatics. Blood pressure is already improving with systolic at 100 on the last reading. Disposition pending workup and patient course.. 11:20 ED course: Patient with elevated BNP and lactate. Will hold on further fluids due to sp3 the elevated BNP. Patient received 500 mL of normal saline. Patient's chest pain currently not present. EKG and troponin negative. Will admit to hospitalist service for cardiology consult and further evaluation and correction.. 11:56 ED course: Admitting to Dr. Hill . sp3 10/27 10:07 Order name: Basic Metabolic Panel; Complete Time: 11:17 sp3 10/27 10:07 Order name: CBC with Diff; Complete Time: 11:17 sp3 10/27 10:07 Order name: LFT's; Complete Time: 11:17 sp3 10/27 10:07 Order name: Magnesium; Complete Time: 11:17 sp3 10/27 10:07 Order name: NT PRO-BNP; Complete Time: 11:17 sp3 10/27 10:07 Order name: PT-INR; Complete Time: 11:17 sp3 10/27 10:07 Order name: Troponin HS; Complete Time: 11:17 sp3 10/27 10:19 Order name: Lactate w/ 2H reflex if indic.; Complete Time: 11:17 sp3 10/27 13:01 Order name: Ghost Lactate-NO COLLECT Timer; Complete Time: 13:08 EDMS 10/27 13:11 Order name: CBC with Automated Diff EDMS 10/27 13:11 Order name: CBC with Automated Diff EDMS 10/27 13:11 Order name: Comprehensive Metabolic Panel EDMS 10/27 13:11 Order name: Comprehensive Metabolic Panel EDMS 10/27 13:11 Order name: Lipid Profile EDMS 10/27 13:11 Order name: Lipid Profile EDMS 10/27 13:11 Order name: Protime (+INR) EDMS 10/27 13:11 Order name: Protime (+INR) EDMS 10/27 13:11 Order name: PTT, Activated Partial Thromb EDMS 10/27 13:11 Order name: PTT, Activated Partial Thromb EDMS 10/27 13:11 Order name: Troponin High Sensitivity EDMS 10/27 13:11 Order name: Troponin High Sensitivity EDMS 10/27 13:11 Order name: Troponin High Sensitivity EDMS 10/27 10:07 Order name: XRAY Chest (1 view); Complete Time: 11:30 sp3 10/27 10:07 Order name: Cardiac monitoring; Complete Time: 10:34 sp3 10/27 10:07 Order name: EKG - Nurse/Tech; Complete Time: 10:34 sp3 10/27 10:07 Order name: IV Saline Lock; Complete Time: 10:26 sp3 10/27 10:07 Order name: Labs collected and sent; Complete Time: 10:26 sp3 10/27 10:07 Order name: O2 Per Protocol; Complete Time: 10:34 sp3 10/27 10:07 Order name: O2 Sat Monitoring; Complete Time: 10:34 sp3 10/27 10:19 Order name: Orthostatic Blood Pressure; Complete Time: 10:51 sp3 Administered Medications: 11:21 Discontinued: ns 0.9% 500 ml IV at bolus once kj2 11:21 Discontinued: ns 0.9% 1000 ml IV at 1000 ml once kj2 11:15 Drug: NS 0.9% IV 1000 ml IV at 1000 ml once Route: IV; Rate: 1000 ml; Site: right kj2 forearm; 14:26 Follow up: Response: No adverse reaction; IV Status: Order to discontinue infusion kj2 11:16 Drug: NS 0.9% IV 500 ml IV at bolus once Route: IV; Rate: bolus; Site: right forearm; kj2 14:26 Follow up: Response: No adverse reaction; IV Status: Order to discontinue infusion kj2 Disposition Summary: 10/28/23 11:57 Hospitalization Ordered Notes: Hospitalization Status: Inpatient Admission sp3 Provider: Kylee Hill sp3 Location: Telemetry/[facility] (Inpatient) sp3 Condition: Stable sp3 Problem: an acute exacerbation sp3 Symptoms: have worsened sp3 Bed/Room Type: Standard sp3 Room Assignment: 430(10/28/23 13:38) em1 Diagnosis - Chest Pain, SOB, Lactic Acidosis, CHF sp3 Forms: - Medication Reconciliation Form sp3 - SBAR form sp3 - Leadership Thank You Letter sp3 Signatures: Dispatcher [employer] EDMark Ybarra em1 Claudia Alcazar MD MD sp3 Radha Newberry RN RN cm10 Kari Cotto RN RN kj2 JOIE MCLEAN RN RN dd2 Corrections: (The following items were deleted from the chart) 10:07 10:07 BASIC METABOLIC PANEL+C.LAB.BRZ ordered. EDMS EDMS 10:07 10:07 CBC+H.LAB.BRZ ordered. EDMS EDMS 10:07 10:07 HEPATIC FUNCTION+C.LAB.BRZ ordered. EDMS EDMS 10:07 10:07 MAGNESIUM+C.LAB.BRZ ordered. EDMS EDMS 10:07 10:07 PROBNP+C.LAB.BRZ ordered. EDMS EDMS 10:07 10:07 PROTIME (+INR)+COAG.LAB.BRZ ordered. EDMS EDMS 10:07 10:07 Troponin High Sensitivity+C.LAB.BRZ ordered. EDMS EDMS 10:08 10:07 Chest Single View+RAD.RAD.BRZ ordered. EDMS EDMS 13:38 11:57 sp3 em1
--- NOTE | 2023-10-28 11:58 | ER ---
Nurse's Notes [facility] Name: Jorge Schultz Jr Age: 58 yrs Sex: Male : 1965 Arrival Date: 10/28/2023 Time: 09:40 Bed 13 Private MD: Diagnosis: Chest Pain, SOB, Lactic Acidosis, CHF Presentation: 10/27 09:51 Chief complaint: Patient states: Per pt, began having SOB just prior to arrival. Pt dd2 states that his said he was not responding when she spoke to him approx an hour [employer]. Pt states took his BP medication and checked his BP and it was 82/49. Checked his BGS at home 317. Coronavirus screen: At this time, the client does not indicate any symptoms associated with coronavirus-19. Ebola Screen: No symptoms or risks identified at this time. Initial Sepsis Screen: Does the patient meet any 2 criteria? No. Patient's initial sepsis screen is negative. Does the patient have a suspected source of infection? No. Patient's initial sepsis screen is negative. Risk Assessment: Do you want to hurt yourself or someone else? Patient reports no desire to harm self or others. Onset of symptoms was October 28, 2023. 09:51 Method Of Arrival: Ambulatory dd2 09:51 Acuity: AALIYAH 3 dd2 Triage Assessment: 09:57 General: Appears ill, Behavior is calm, cooperative, appropriate for age. Pain: Denies dd2 pain. Respiratory: Reports shortness of breath Onset: The symptoms/episode began/occurred suddenly, the patient has mild shortness of breath. Historical: - Allergies: 09:57 No Known Allergies; dd2 - PMHx: 09:57 Anxiety; Asthma; CAD; GERD; Glaucoma; High Cholesterol; Hypertension; IDDM; Myocardial dd2 infarction; - PSHx: 09:57 CABG; Stented artery; dd2 - Immunization history:: Adult Immunizations unknown. - Infectious Disease History:: Denies. - Social history:: Smoking status: Patient denies any tobacco usage or history of. Screenin:32 [facility] ED Fall Risk Assessment (Adult) History of falling in the last 3 months, kj2 including since admission No falls in past 3 months (0 pts) Confusion or Disorientation No (0 pts) Intoxicated or Sedated No (0 pts) Impaired Gait No (0 pts) Mobility Assist Device Used No (0 pt) Altered Elimination No (0 pt) Score/Fall Risk Level 0 - 2 = Low Risk Maintained a safe environment, Educated pt \T\ family on fall prevention, incl call for assistance when getting out of bed, Hourly rounding (assess needs \T\ fall precautionary measures) done. Abuse screen: Denies threats or abuse. Denies injuries from another. Nutritional screening: No deficits noted. Tuberculosis screening: No symptoms or risk factors identified. Assessment: 10:29 General: Appears in no apparent distress. Behavior is calm, cooperative. Pain: kj2 Complains of pain in BACK Pain currently is 6 out of 10 on a pain scale. Neuro: Level of Consciousness is awake, alert, Oriented to person, place, time, situation. Cardiovascular: Patient's skin is warm and dry. Respiratory: Airway is patent Respiratory effort is even, unlabored. GI: No deficits noted. : No deficits noted. 11:21 Reassessment: No changes from previously documented assessment. Patient and/or family kj2 updated on plan of care and expected duration. Pain level reassessed. Patient is alert, oriented x 3, equal unlabored respirations, skin warm/dry/pink. MD ordered to discontinue bolus of saline at this time due to BNP lab values. 12:45 Reassessment: Patient appears in no apparent distress at this time. Patient and/or kj2 family updated on plan of care and expected duration. Pain level reassessed. Patient is alert, oriented x 3, equal unlabored respirations, skin warm/dry/pink. 14:38 General: Prior to transporting patient to his room, patient reports that he wants to cm10 remove his gown and would like to stay in his regular clothes.. Vital Signs: 09:51 BP 89 / 63; Pulse 59; Resp 15; Temp 97.3; Pulse Ox 100% ; Weight 83.91 kg; Height 5 ft. dd2 5 in. ; 10:31 BP 95 / 72; Pulse 56; Resp 18; Temp 98; Pulse Ox 99% on R/A; kj2 10:48 BP 93 / 65 Sitting; Pulse 51; Resp 16; Temp 97.9; Pulse Ox 100% on R/A; bc6 10:49 BP 88 / 69 Standing; Pulse 63; Resp 16; Temp 97.9; Pulse Ox 98% on R/A; bc6 10:50 BP 90 / 58 Supine; Pulse 55; Resp 17; Temp 97.9; Pulse Ox 97% on R/A; bc6 11:22 BP 106 / 64; Pulse 59; Resp 18; Pulse Ox 100% on R/A; kj2 12:44 BP 120 / 82; Pulse 66; Resp 18; Temp 98; Pulse Ox 100% on R/A; kj2 09:51 Body Mass Index 30.79 (83.91 kg, 165.1 cm) dd2 ED Course: 09:42 Patient arrived in ED. mg5 09:44 Claudia Alcazar MD is Attending Physician. sp3 09:57 Triage completed. dd2 09:57 Arm band placed on left wrist. Patient placed in an exam room, on a stretcher, on dd2 compliance monitor, on pulse oximetry. 10:26 Initial lab(s) drawn, by me, sent to lab. Inserted saline lock: 18 gauge in right cm10 forearm, using aseptic technique. Blood collected. Flushed with 10 mL NS. 10:26 Lactate w/ 2H reflex if indic. Sent. cm10 10:26 Basic Metabolic Panel Sent. cm10 10:26 CBC with Diff Sent. cm10 10:26 LFT's Sent. cm10 10:26 Magnesium Sent. cm10 10:27 NT PRO-BNP Sent. cm10 10:27 PT-INR Sent. cm10 10:27 Troponin HS Sent. cm10 10:28 Kari Cotto, RN is Primary Nurse. kj2 10:31 No provider procedures requiring assistance completed. EKG done, by ED staff. kj2 10:32 XRAY Chest (1 view) In Process Unspecified. EDMS 10:33 Patient has correct armband on for positive identification. Bed in low position. Call kj2 light in reach. Provided Education on: call light, fall precautions. 11:56 Kylee Hill MD is Hospitalizing Provider. sp3 12:45 CM met with Mr Martell and his Amy at the bedside in the ED exam room. Patient ane identified by name and . Demographic sheet confirmed. Mr. Schultz states he lives in a single story home with his Amy. He reports that prior to admission, he performs ADLs independently and without physical limitations. No MPOA in place at this time. Patient states he will think about MPOA and discuss with Amy. He reports no HH, home oxygen, DME or other medical services at this time. His preferred plan is to return home upon discharge. Amy states she can transport him home when he is released home. Community resource packet provided. CM team will continue to follow and coordinate care. 14:25 Patient admitted, IV remains in place. kj2 Administered Medications: 11:21 Discontinued: ns 0.9% 500 ml IV at bolus once kj2 11:21 Discontinued: ns 0.9% 1000 ml IV at 1000 ml once kj2 11:15 Drug: NS 0.9% IV 1000 ml IV at 1000 ml once Route: IV; Rate: 1000 ml; Site: right kj2 forearm; 14:26 Follow up: Response: No adverse reaction; IV Status: Order to discontinue infusion kj2 11:16 Drug: NS 0.9% IV 500 ml IV at bolus once Route: IV; Rate: bolus; Site: right forearm; kj2 14:26 Follow up: Response: No adverse reaction; IV Status: Order to discontinue infusion kj2 Medication: 10:33 VIS not applicable for this client. kj2 Outcome: 11:57 Decision to Hospitalize by Provider. sp3 14:25 Admitted to Tele accompanied by nurse, via wheelchair, room 430, kj2 14:25 Condition: good 14:25 Instructed on the need for admit, 14:25 Patient left the ED. kj2 Signatures: Dispatcher [employer] EDClaudia Young MD MD sp3 Beatrice Poe bc6 Radha Newberry RN RN cm10 Eduarda Patton 5 Kari Cotto RN RN kj2 Marisela Frias RN RN ane DAVIS, DIANA, RN RN dd2
[2023-10-28] MEDS ORDERED: ACETAMINOPHEN 500 MG TAB PO PRN (13:06)
[2023-10-28 14:59] VITALS: BMI 30.7
[2023-10-28] MEDS: PNEUMOCOCCAL VACCINE 0.5 ML IMVAC ONE (14:59)
--- NOTE | 2023-10-28 15:25 | RAD REPORT ---
EXAM DESCRIPTION: CT - Head Brain Wo Cont - 10/28/2023 1:51 pm CLINICAL HISTORY: near syncope COMPARISON: Head Brain Wo Cont dated 04/29/2023; Head angio dated 04/28/2023; Brain Wo Cont dated 04/28/19 24 TECHNIQUE: Noncontrast head CT images were obtained without IV contrast. Multiplanar reformats were generated and reviewed. All CT scans are performed using dose optimization technique as appropriate and may include automated exposure control or mA/KV adjustment according to patient size. FINDINGS: No intracranial hemorrhage, mass, or edema. Midline structures are unremarkable. Normal ventricular caliber for age. Gómez-white matter differentiation is preserved, without evidence of acute infarct. No abnormal extra- axial fluid collections. Mastoid air cells and visualized portions of the paranasal sinuses are clear. No acute bony findings. IMPRESSION: No evidence of an acute intracranial process.
[2023-10-28] MEDS: HYDROMORPHONE HCL 0.5 MG/0.5 ML INJ IV PRN (15:32)
[2023-10-28] MEDS: INSULIN REGULAR (HUMAN) 100 UNIT/ML ONE (20:17)
[2023-10-28] MEDS: CLOPIDOGREL 75 MG TABLET PO SCH (21:56)
[2023-10-28] MEDS: INSULIN REGULAR (HUMAN) 100 UNIT/ML IV ONE (21:56)
[2023-10-28] MEDS: INSULIN GLARGINE 100 UNIT/ML SQ SCH (21:57)
[2023-10-29] MEDS: INSULIN REGULAR (HUMAN) 100 UNIT/ML SQ SCH (00:49)
[2023-10-29 06:50] LABS: Absolute Eosinophils 0.2 K/uL (0-0.5); Absolute Lymphocytes (CBC) 1.3 K/uL (0.7-4.9); Absolute Monocytes 0.6 K/uL (0.1-1.3); Absolute Neutrophil 4.2 K/uL (1.8-8.0); Basophils % 0.6 % (0-1.3); Eosinophils % 2.9 % (0-4.4); Hematocrit 40.3 % (39.6-49.0); Hemoglobin 13.8 g/dL (13.6-17.9); Lymphocytes % 20.1 % (15.3-44.8); MCH 29.4 pg (27.0-35.0); MCHC 34.2 g/dL (32.0-36.0); MCV 86.1 fL (80-100); MPV 7.4 fL (7.6-11.3); Monocytes % 9.7 % (3.3-12.3); Neutrophils % 66.7 % (41.7-73.7); Nucleated Red Blood Cells % 0.2 % (0-0); Platelets 198 thou/uL (152-406); RBC Red Blood Cell Count 4.68 M/uL (4.33-5.43); Red Cell Distribution Width 13.7 % (12.1-15.2)
[2023-10-29] MEDS: ONDANSETRON 4 MG/2 ML VIAL IV PRN (06:52)
[2023-10-29 06:59] LABS: PT Prothrombin Time 11.7 SECONDS (9.4-12.5); PTT, Activated Partial Thromb 31.1 SECONDS (24.3-36.9); Protime INR 1.05
[2023-10-29 07:08] LABS: Albumin 3.3 g/dL (3.4-5.0); Albumin/Globulin Ratio 0.8 (1.1-1.8); Bilirubin Total 0.2 mg/dL (0.2-1.0); Globulin 4.3 g/dL (2.3-3.5); Protein, Total 7.6 g/dL (6.4-8.2)
--- NOTE | 2023-10-29 07:54 | P.PN ---
Date of Service: 10/29/23 Subjective Admitted with hypotension, will adjust blood pressure medication Acute kidney injury, from overdiuresis, is currently on IV fluid Review of Systems 10-point ROS is otherwise unremarkable Physical Examination - Vital Signs reviewed - Physical Exam General: Alert, In no apparent distress, Oriented x3 HEENT: Atraumatic, PERRLA, EOMI Neck: Supple, JVD not distended Respiratory: Clear to auscultation bilaterally, Normal air movement Cardiovascular: Regular rate/rhythm, Normal S1 S2, No murmurs Gastrointestinal: Normal bowel sounds, Soft and benign, Non-distended, No tenderness Musculoskeletal: No tenderness Integumentary: No rashes Neurological: Normal speech, Normal tone, Normal affect Lymphatics: No axilla or inguinal lymphadenopathy - Studies Medications List Reviewed: Yes Assessment & Plan - Problems (Diagnosis) Syncopal episode with hypotension, Essential hypertension on antihypertensive Status: Acute Need to adjust medication Stage III with CKD Gentle IV fluids Acute history of coronary artery bypass graft Chronic coronary artery disease Status: Acute Obesity (BMI 30-39.9) Status: Acute Diabetes mellitus type 2 in obese Status: Chronic Trend troponin, kidney function -Echocardiogram -Repeat EKG - Patient will be admitted for observation -Fire Control Technician G regarding modifying risk for cardiac disease Discharge Plan: Home Plan to discharge in: 24 Hours - Advance Directives Does patient have a Living Will: No Does patient have a Durable POA for Healthcare: No - Code Status/Comfort Care Code Status: Full Code Critical Care: No Time Spent Managing PTS Care (In Minutes): 30 <Kay Pantoja - Last Filed: 10/31/23 08:58> Chart has been reviewed. Events of the last 24 hours have been noted. Case discussed with TERESE. I performed a substantial part of the MDM during this patient's care today. I personally made or approved the documented management plan and acknowledge its risk of complications. I agree with the findings and documentation provided in the TERESE's notes Patient clinical symptoms are stable. Waiting for echo and carotid Doppler results. Patient's with elevated troponin and will continue monitoring labs. <Kylee Hill - Last Filed: 11/05/23 01:35>
--- NOTE | 2023-10-29 08:00 | RAD REPORT ---
EXAM DESCRIPTION: US - CP - 10/29/2023 7:46 am CLINICAL HISTORY: syncope COMPARISON: Neck Angio dated 04/28/2023 TECHNIQUE: Real-time sonographic evaluation of both carotid systems was performed. Doppler interroga tion was performed with waveform tracing bilaterally. FINDINGS: Normal high resistance waveforms are noted in both external carotid arteries. The common c arotid arteries and internal carotid arteries show normal low resistance waveforms. Mixed hard and soft plaque is present at both carotid bulbs. Peak systolic and end diastolic velocity values and the ICA/CCA ratios are in the non-hemodynamically significant range. Antegrade flow seen in both vertebral arteries. IMPRESSION: No evidence of a hemodynamically significant stenosis. Hard and soft plaque present at t he carotid bulbs.
[2023-10-29] MEDS: PNEUMOCOCCAL VACCINE 0.5 ML IMVAC ONE (09:30)
--- NOTE | 2023-10-29 14:08 | EKG ---
Test Date: 2023-10-28 Test Time: 10:18:51 Timekeeper: ANANT MEASUREMENT RESULTS: Intervals: Rate: 56 NH: 154 QRSD: 114 QT: 476 QTc: 459 [place]: P: 40 NH: 154 QRS: -79 T: 238 INTERPRETIVE STATEMENTS: Sinus bradycardia Left axis deviation Septal infarct, age undetermined T wave abnormality, consider inferolateral ischemia Abnormal ECG Compared to ECG 08/21/2023 11:46:37 Left-axis deviation now present Sinus rhythm no longer present Ventricular premature complex(es) no longer present Left anterior fascicular block no longer present Myocardial infarct finding still present T-wave abnormality still present Possible ischemia still present Electronically Signed On 10-29-23 14:06:46 CDT by Jose Maria Adair
--- NOTE | 2023-10-29 14:37 | ECHO ---
HEIGHT: 5 ft 5 in WEIGHT: 185 lb 0 oz DATE OF STUDY: 10/29/[address]: Kylee Hill MD 2-DIMENSIONAL: YES M.MODE: YES DOPPLER: YES COLOR FLOW: YES TDS: PORTABLE: YES DEFINITY: BUBBLE STUDY: DIAGNOSIS: SYNCOPE CARDIAC HISTORY: CATHERIZATION: YES SURGERY: YES PROSTHETIC VALVE: PACEMAKER: MEASUREMENTS (cm) DIASTOLIC (NORMALS) SYSTOLIC (NORMALS) IVSd 1.1 (0.6-1.2) LA Diam 4.6 (1.9-4.0) LVEF 50% LVIDd 5.3 (3.5-5.7) LVIDs 3.9 (2.0-3.5) %FS 26% LVPWd 1.2 (0.6-1.2) Ao Diam 2.7 (2.0-3.7) 2 DIMENSIONAL ASSESSMENT: RIGHT ATRIUM: NORMAL LEFT ATRIUM: ENLARGED RIGHT VENTRICLE: NORMAL LEFT VENTRICLE: NORMAL TRICUSPID VALVE: MILD TRICUSPID REGURGITATION MITRAL VALVE: MILD MITRAL REGURGITATION PULMONIC VALVE: NORMAL AORTIC VALVE: MILD AORTIC INSUFFICIENCY PERICARDIAL EFFUSION: NONE AORTIC ROOT: NORMAL LEFT VENTRICULAR WALL MOTION: SEE BELOW DOPPLER/COLOR FLOW: SEE BELOW COMMENTS: 1. LOW NORMAL LEFT VENTRICULAR EJECTION FRACTION 50% 2. MILD DISTAL/ CHARU-SEPTAL AND APICAL HYPOKINESIS 3. MODERATE DIASTOLIC DYSFUNCTION TECHNOLOGIST: ELZBIETA COOLEY
[2023-10-29] MEDS: NA CHLORIDE 0.9% 1,000 ML IV SCH (15:35)
--- NOTE | 2023-10-29 19:48 | RAD REPORT ---
EXAM DESCRIPTION: US - Renal Ultrasound-Complete - 10/29/2023 6:50 pm CLINICAL HISTORY: THU COMPARISON: CT ABD PELVIS W CONTRAST dated 10/24/2014 TECHNIQUE: Sonographic grayscale and color flow images of the kidneys and bladder were obtained. FINDINGS: Both kidneys are normal in size, shape, and echotexture. The right kidney measures 12.2 cm in length. No hydronephrosis, focal mass, or echogenic calculi. The left kidney measures 11 cm in length. No hydronephrosis, focal mass, or echogenic calculi. The urinary bladder is without gross abnormality seen. IMPRESSION: Unremarkable renal sonogram.
[2023-10-30] MEDS: INSULIN REGULAR (HUMAN) 100 UNIT/ML SQ SCH (07:30)
--- NOTE | 2023-10-30 09:12 | P.DS ---
Admission Date: 10/29/23 Discharge Date: 10/30/23 Brief History of Present Illness: 58 yrs old Male with past medical history of hypertension, hyperlipidemia, diabetes, CAD, history of AK, status post CABG quadruple, 4 stents after the CABG, anxiety, GERD, glaucoma, asthma who was brought to ER with hypotenstion. He reported an associated syncopal episode due to hypotension. He reports symptoms improved with BP improves. He reposted recently started new BP medicaton, coreg. Admitted to review antihypertensives prior to discharge tablet. Symptoms improved with removing some of blood pressure medications. Tolerating diet, plan to discharge home, follow-up with cardiology after discharge Assessment, diagnosis, Syncopal episode with hypotension Hypertensive on antihypertensives, Admitted to adjust blood pressure medications. Diabetes with hyperglycemia-improved with sliding scale insulin while Lactic acidosis Hyperlipidemia chronic Stage III kidney disease chronic Diabetes, resume appropriate home meds History of acute on chronic heart failure Renal ultrasound-IMPRESSION: Unremarkable renal sonogram. Echo -. LOW NORMAL LEFT VENTRICULAR EJECTION FRACTION 50% 2. MILD DISTAL/ CHARU-SEPTAL AND APICAL HYPOKINESIS 3. MODERATE DIASTOLIC DYSFUNCTION Carotid Doppler IMPRESSION: No evidence of a hemodynamically significant stenosis. Hard and soft plaque present at the carotid bulbs. CT of the head no acute abnormality Continue home medicines as previously prescribed GOAL: Clear understanding of disease process INSTRUCTIONS: Physician Discharge Instructions: -Follow-up with PCP in 1 to 2 weeks -Please call Dr. Hill at [phone] if any questions regarding hospital stay -Please call nursing station at [phone] if any nursing or medication questions -Return to the emergency room if symptoms worsen Diet: ADA, low sodium Activity: Fall precautions Hospital Course: 58 yrs old Male with past medical history of hypertension, hyperlipidemia, diabetes, CAD, history of AK, status post CABG quadruple, 4 stents after the CABG, anxiety, GERD, glaucoma, asthma who was brought to ER with hypotenstion. He reported an associated syncopal episode due to hypotension. He reports symptoms improved with BP improves. He reposted recently started new BP medicaton, coreg. Admitted to review antihypertensives prior to discharge tablet. Symptoms improved with removing some of blood pressure medications. Admitted to eval syncopal episode, with hypotension, - Physical Exam General: Alert, In no apparent distress, Oriented x3 HEENT: Atraumatic, Normocephalic Neck: Supple, 2+ carotid pulse no bruit Respiratory: Clear to auscultation bilaterally, Normal air movement Cardiovascular: Normal pulses, Regular rate/rhythm, Normal S1 S2 Capillary refill: <2 Seconds Gastrointestinal: Soft and benign, Non-distended, W/out hepatosplenomegaly Musculoskeletal: No clubbing Integumentary: No rashes, No breakdown Neurological: Normal speech, Normal strength at 5/5 x4 extr, Cranial nerves 3-12 intact, Normal reflexes 2+ Lymphatics: No axilla or inguinal lymphadenopathy <Kay Pantoja - Last Filed: 10/31/23 08:53> Admission Date: 10/28/23 Discharge Date: 10/30/23 - Problems (1) NSTEMI (non-ST elevated myocardial infarction) Status: Acute (2) History of hemorrhagic cerebrovascular accident (CVA) with residual deficit Status: Acute (3) History of coronary artery bypass graft Status: Acute (4) Non-insulin dependent type 2 diabetes mellitus Onset Date: 12/31/14 Status: Acute (5) Obesity (BMI 30-39.9) Status: Acute (6) Syncope and collapse Status: Acute (7) Coronary artery disease Status: Chronic Qualifiers: Coronary Disease-Associated Artery/Lesion type: bypass graft [place] vs. transplanted heart: [place] heart Associated angina: with unstable angina Qualified Code(s): I25.700 - Atherosclerosis of coronary artery bypass graft(s), unspecified, with unstable angina pectoris (8) Hypercholesterolemia Onset Date: 12/31/14 Status: Chronic (9) Hypertension Status: Chronic Qualifiers: Hypertension type: primary hypertension Qualified Code(s): I10 - Essential (primary) hypertension Hospital Course: Chart has been reviewed. Events of the last 24 hours have been noted. Case discussed with TERESE. I performed a substantial part of the MDM during this patient's care today. I personally made or approved the documented management plan and acknowledge its risk of complications. I agree with the findings and documentation provided in the TERESE's notes Patient is doing well clinically.Patient stable for discharge. No abnormal rhythm on telemetry. Echo and carotid Doppler were negative. <Kylee Hill - Last Filed: 11/05/23 01:37> Disposition: ROUTINE DISCHARGE Discharge Condition: FAIR Vital Signs/Physical Exam: Temp Pulse Resp BP Pulse Ox 98.1 F 67 14 132/75 99 09/07/24 08:00 10/30/23 08:00 10/30/23 08:00 10/30/23 08:00 10/30/23 08:00 Laboratory Data at Discharge: WBC 6.40 thou/uL (4.3-10.9) 10/29/23 06:26 Hgb 13.8 g/dL (13.6-17.9) 10/29/23 06:26 Hct 40.3 % (39.6-49.0) 10/29/23 06:26 Plt Count 198 thou/uL (152-406) 10/29/23 06:26 PT 11.7 SECONDS (9.4-12.5) 10/29/23 06:26 INR 1.05 10/29/23 06:26 APTT 31.1 SECONDS (24.3-36.9) 10/29/23 06:26 Sodium 138 mEq/L (136-145) D 10/29/23 06:26 Potassium 4.0 mEq/L (3.5-5.1) D 10/29/23 06:26 BUN 36 mg/dL (7-18) H 10/29/23 06:26 Creatinine 2.30 mg/dL (0.70-1.30) H 10/29/23 06:26 Glucose 200 mg/dL (74-106) H 10/29/23 06:26 Magnesium 1.7 mg/dL (1.6-2.4) 10/28/23 10:08 Total Bilirubin 0.2 mg/dL (0.2-1.0) 10/29/23 06:26 AST 13 U/L (15-37) L 10/29/23 06:26 ALT 21 U/L (16-61) 10/29/23 06:26 Alkaline Phosphatase 89 U/L (45-117) 10/29/23 06:26 Triglycerides 71 mg/dL (<150) 10/29/23 06:26 Cholesterol 110 mg/dL (<200) 10/29/23 06:26 HDL Cholesterol 36 mg/dL (40-60) L 10/29/23 06:26 Cholesterol/HDL Ratio 3.06 10/29/23 06:26 <Kay Pantoja - Last Filed: 10/31/23 08:53> Vital Signs/Physical Exam: Temp Pulse Resp BP Pulse Ox 96.7 F L 67 16 157/90 H 96 11/05/23 01:34 11/05/23 01:34 11/05/23 01:34 11/05/23 01:34 11/05/23 01:34 General: Alert, In no apparent distress, Oriented x3 Laboratory Data at Discharge: WBC 6.30 thou/uL (4.3-10.9) 10/30/23 12:57 Hgb 14.2 g/dL (13.6-17.9) 10/30/23 12:57 Hct 42.1 % (39.6-49.0) 10/30/23 12:57 Plt Count 208 thou/uL (152-406) 10/30/23 12:57 PT 11.7 SECONDS (9.4-12.5) 10/29/23 06:26 INR 1.05 10/29/23 06:26 APTT 31.1 SECONDS (24.3-36.9) 10/29/23 06:26 Sodium 134 mEq/L (136-145) L 10/30/23 14:23 Potassium 4.5 mEq/L (3.5-5.1) 10/30/23 14:23 BUN 25 mg/dL (7-18) H 10/30/23 14:23 Creatinine 1.50 mg/dL (0.70-1.30) H 10/30/23 14:23 Glucose 342 mg/dL (74-106) H 10/30/23 14:23 Magnesium 1.7 mg/dL (1.6-2.4) 10/28/23 10:08 Total Bilirubin 0.3 mg/dL (0.2-1.0) 10/30/23 14:23 AST 11 U/L (15-37) L 10/30/23 14:23 ALT 20 U/L (16-61) 10/30/23 14:23 Alkaline Phosphatase 83 U/L (45-117) 10/30/23 14:23 Triglycerides 71 mg/dL (<150) 10/29/23 06:26 Cholesterol 110 mg/dL (<200) 10/29/23 06:26 HDL Cholesterol 36 mg/dL (40-60) L 10/29/23 06:26 Cholesterol/HDL Ratio 3.06 10/29/23 06:26 <Pradip Hillangélica Chitra - Last Filed: 11/05/23 01:37> Physician Review: Patient Assessed, Agree with Above Assessment and Plan (55) <Kay Pantoja - Last Filed: 10/31/23 08:53> Time spent managing pt's care (in minutes): 35 <Rosales Hilltyron Chitra - Last Filed: 11/05/23 01:37> Home Medications: Carisoprodol [Soma] 350 mg PO TID PRN 07/04/22 Insulin Glargine,Hum.rec.anlog [Lantus] 20 units SQ BEDTIME 07/04/22 Metformin HCl 1,000 mg PO BIDWM 07/04/22 Liraglutide [Victoza 2-Imer] 1.8 mg SQ DAILY 07/05/22 Atorvastatin Calcium [Lipitor*] 40 mg PO BEDTIME 04/13/23 Alprazolam [Xanax] 1 mg PO DAILY 04/29/23 Meclizine HCl 25 mg PO DAILY 08/20/23 Aspirin [Ecotrin 81 MG] 81 mg PO DAILY #30 tab 08/21/23 Clopidogrel Bisulfate [Plavix*] 75 mg PO BEDTIME #30 tab 08/21/23 Hydrocodone 10/APAP 325 [[place] 10/325*] 1 tab PO TID PRN #15 tab 08/21/23 Losartan Potassium [Cozaar*] 50 mg PO DAILY 30 Days #30 tablet 10/30/23 carvediloL [Coreg] 6.25 mg PO BID 60 Days #60 tab 10/30/23 New Medications: carvediloL [Coreg] 6.25 mg PO BID 60 Days #60 tab Losartan Potassium [Cozaar*] 50 mg PO DAILY 30 Days #30 tablet Physician Discharge Instructions: 58 yrs old Male with past medical history of hypertension, hyperlipidemia, diabetes, CAD, history of AK, status post CABG quadruple, 4 stents after the CABG, anxiety, GERD, glaucoma, asthma who was brought to ER with hypotenstion. He reported an associated syncopal episode due to hypotension. He reports symptoms improved with BP improves. He reposted recently started new BP medicaton, coreg. Admitted to review antihypertensives prior to discharge tablet. Symptoms improved with removing some of blood pressure medications. Tolerating diet, plan to discharge home, follow-up with cardiology after discharge NEW MEDICATIONS, LOSARTAN 1/2 TAB, COREG DOSE LOWERED TO 6.25 PO BID; please stop amlodipine; please also check blood pressure before taken losartan and carvedilol. If systolic blood pressure is less than 120 then it is okay to hold his blood pressure medications. Will need to follow-up with the primary care provider in 1 to 2 weeks. Assessment, diagnosis, Syncopal episode with hypotension Hypertensive on antihypertensives, Admitted to adjust blood pressure medications. Diabetes with hyperglycemia-improved with sliding scale insulin while Lactic acidosis Hyperlipidemia chronic Stage III kidney disease chronic Diabetes, resume appropriate home meds History of acute on chronic heart failure Renal ultrasound-IMPRESSION: Unremarkable renal sonogram. Echo -. LOW NORMAL LEFT VENTRICULAR EJECTION FRACTION 50% 2. MILD DISTAL/ CHARU-SEPTAL AND APICAL HYPOKINESIS 3. MODERATE DIASTOLIC DYSFUNCTION Carotid Doppler IMPRESSION: No evidence of a hemodynamically significant stenosis. Hard and soft plaque present at the carotid bulbs. CT of the head no acute abnormality Continue home medicines as previously prescribed GOAL: Clear understanding of disease process INSTRUCTIONS: Physician Discharge Instructions: -Follow-up with PCP in 1 to 2 weeks -Please call Dr. Hill at [phone] if any questions regarding hospital stay -Please call nursing station at [phone] if any nursing or medication questions -Return to the emergency room if symptoms worsen Diet: ADA, low sodium Activity: Fall precautions Followup: Felipe Sinha MD [Primary Care Provider] - 1-2 Weeks (call to schedule an appointment)
[2023-10-30] MEDS ORDERED: METHYLPREDNISOLONE 125 MG INJ IV ONE (11:46)
[2023-10-30] MEDS: DIGOXIN 0.25 MG/ML AMP IV ONE (11:46)
[2023-10-30] MEDS: NA CHLORIDE 0.9% 250 ML IV ONE (11:46)
[2023-10-30 13:04] LABS: Absolute Eosinophils 0.2 K/uL (0-0.5); Absolute Lymphocytes (CBC) 1.1 K/uL (0.7-4.9); Absolute Monocytes 0.4 K/uL (0.1-1.3); Absolute Neutrophil 4.6 K/uL (1.8-8.0); Basophils % 0.4 % (0-1.3); Eosinophils % 2.7 % (0-4.4); Hematocrit 42.1 % (39.6-49.0); Hemoglobin 14.2 g/dL (13.6-17.9); MCH 29.4 pg (27.0-35.0); MCHC 33.6 g/dL (32.0-36.0); MCV 87.4 fL (80-100); MPV 7.8 fL (7.6-11.3); Monocytes % 6.2 % (3.3-12.3); Neutrophils % 72.7 % (41.7-73.7); Platelets 208 thou/uL (152-406); RBC Red Blood Cell Count 4.82 M/uL (4.33-5.43); Red Cell Distribution Width 13.8 % (12.1-15.2)
[2023-10-30 14:58] LABS: Albumin 3.2 g/dL (3.4-5.0); Albumin/Globulin Ratio 0.8 (1.1-1.8); Anion Gap 10.5 mEq/L (5.0-15.0); Bilirubin Total 0.3 mg/dL (0.2-1.0); Globulin 4.1 g/dL (2.3-3.5); Potassium 4.5 mEq/L (3.5-5.1); Protein, Total 7.3 g/dL (6.4-8.2)
[2023-10-30 15:54] VITALS: O2SAT 96
[2023-10-30 15:57] VITALS: BP 157/90; TEMP 96.7
[2023-10-30] MEDS ORDERED: CLOPIDOGREL 75 MG TABLET PO SCH (21:00)
--- NOTE | 2023-11-05 01:15 | P.HP ---
Certification for Inpatient Patient admitted to: Inpatient With expected LOS: >2 Midnights Patient will require the following post-hospital care: None Practitioner: I am a practitioner with admitting privileges, knowledge of patient current condition, hospital course, and medical plan of care. Services: Services provided to patient in accordance with Admission requirements found in Title 42 Section 412.3 of the Code of Federal Regulations Patient History Date of Service: 10/28/23 Reason for admission: Syncope and collapse; chest discomfort History of Present Illness: Patient is a 58-year-old gentleman who came to the hospital with chest discomfort. Patient was at work with his when he had a syncopal episode and collapse. She brought him home but he was still having some chest pain so she brought him into the ER for further evaluation. Patient's had numerous medical issues including severe coronary artery disease with bypass and stent placement. Patient is also with recent hemorrhagic stroke. At this time, patient will be admitted to the hospital for further evaluation. Allergies No Known Drug Allergies Allergy (Verified 07/14/22 00:06) Unknown Home Medications: Carisoprodol [Soma] 350 mg PO TID PRN 07/04/22 Insulin Glargine,Hum.rec.anlog [Lantus] 20 units SQ BEDTIME 07/04/22 Metformin HCl 1,000 mg PO BIDWM 07/04/22 Liraglutide [Victoza 2-Imer] 1.8 mg SQ DAILY 07/05/22 Atorvastatin Calcium [Lipitor*] 40 mg PO BEDTIME 04/13/23 Alprazolam [Xanax] 1 mg PO DAILY 04/29/23 Meclizine HCl 25 mg PO DAILY 08/20/23 Aspirin [Ecotrin 81 MG] 81 mg PO DAILY #30 tab 08/21/23 Clopidogrel Bisulfate [Plavix*] 75 mg PO BEDTIME #30 tab 08/21/23 Hydrocodone 10/APAP 325 [[place] 10/325*] 1 tab PO TID PRN #15 tab 08/21/23 Losartan Potassium [Cozaar*] 50 mg PO DAILY 30 Days #30 tablet 10/30/23 carvediloL [Coreg] 6.25 mg PO BID 60 Days #60 tab 10/30/23 - Past Medical/Surgical History Diabetic: Yes -: X3 MIs -: IDDM -: chronic back pain -: cataracts -: glaucoma rt eye -: cellulitis -: staph infection with CABG -: Glaucoma -: Staph infection wound chest -: HLD -: Anxiety -: GERD -: cardiac cath -: lumbar epidural injection x3 -: CABG (May 29 2014) x 4 vessels -: Cardiac stents x2 01/20/2022 -: Cardiac stents x2 01/20/2022 Psychosocial/ Personal History: Patient lives at home with his . - Family History Mother Medical History: Heart disease, Diabetes Father Medical History: Stroke, Cancer Notes: Multiple CANCER Sister Medical History: Cancer Notes: liver - Social History Smoking Status: Never smoker Alcohol use: No CD- Drugs: No Caffeine use: Yes Review of Systems 10-point ROS is otherwise unremarkable Physical Examination - Vital Signs Temperature: 96.7 F Blood Pressure: 157/90 Pulse: 67 Respirations: 16 Pulse Ox (%): 96 - Physical Exam General: Alert, In no apparent distress, Oriented x3 HEENT: Atraumatic, PERRLA, Mucous membr. moist/pink, EOMI, Sclerae nonicteric Neck: Supple, 2+ carotid pulse no bruit, No LAD, Without JVD or thyroid abnormality Respiratory: Clear to auscultation bilaterally, Normal air movement Cardiovascular: Regular rate/rhythm, Normal S1 S2 Gastrointestinal: Normal bowel sounds, Soft and benign, Non-distended, No tenderness Musculoskeletal: No clubbing, No swelling, No tenderness Integumentary: No rashes Neurological: Normal gait, Normal speech, Normal strength at 5/5 x4 extr, Normal tone, Sensation intact, Cranial nerves 3-12 intact, Normal affect Lymphatics: No axilla or inguinal lymphadenopathy Assessment & Plan - Problems (Diagnosis) (1) NSTEMI (non-ST elevated myocardial infarction) Status: Acute (2) History of hemorrhagic cerebrovascular accident (CVA) with residual deficit Status: Acute (3) History of coronary artery bypass graft Status: Acute (4) Non-insulin dependent type 2 diabetes mellitus Onset Date: 12/31/14 Status: Acute (5) Obesity (BMI 30-39.9) Status: Acute (6) Syncope and collapse Status: Acute (7) Coronary artery disease Status: Chronic Qualifiers: Coronary Disease-Associated Artery/Lesion type: bypass graft [place] vs. transplanted heart: [place] heart Associated angina: with unstable angina Qualified Code(s): I25.700 - Atherosclerosis of coronary artery bypass graft(s), unspecified, with unstable angina pectoris (8) Hypercholesterolemia Onset Date: 12/31/14 Status: Chronic (9) Hypertension Status: Chronic Qualifiers: Hypertension type: primary hypertension Qualified Code(s): I10 - Essential (primary) hypertension - Plan 1. Serial troponins and EKG 2. Appreciate Cardiology consultation 3. Echocardiogram and Carotid Dopplers 4. Anti-platelet therapy, anti coagulation, beta-michelle, statin, and O2 as needed 5. IV morphine for pain 6. Monitor on telemetry for cardiac status Discharge Plan: Home Plan to discharge in: Greater than 2 days - Advance Directives Does patient have a Living Will: No Does patient have a Durable POA for Healthcare: No - Code Status/Comfort Care Code Status Assessed: Yes Code Status: Full Code Physician Review: Patient Assessed, Agree with Above Assessment and Plan (55) Critical Care: No Time Spent Managing PTS Care (In Minutes): 45
== END 2023-10-30 16:00 | disposition home or self-care (01) | DRG 312 ==
LOC: ER 09:40 → ERHOLD 13:06 → 4TH 14:05 → OBSVTOIN 10-29 10:51
PROVIDERS: ADMIT Hospitalist; ATTEND Hospitalist
DX: I95.2 Hypotension due to drugs (principal); E87.20 Acidosis, unspecified; N17.9 Acute kidney failure, unspecified; I12.9 Hypertensive chronic kidney disease with stage 1 through stage 4 chronic kidney disease, or unspecified chronic kidney disease; N18.30 Chronic kidney disease, stage 3 unspecified; E11.22 Type 2 diabetes mellitus with diabetic chronic kidney disease; E11.65 Type 2 diabetes mellitus with hyperglycemia; E78.00 Pure hypercholesterolemia, unspecified; K21.9 Gastro-esophageal reflux disease without esophagitis; E66.9 Obesity, unspecified; I25.2 Old myocardial infarction; I25.10 Atherosclerotic heart disease of native coronary artery without angina pectoris; T46.5X5A Adverse effect of other antihypertensive drugs, initial encounter; Z79.4 Long term (current) use of insulin; Z95.1 Presence of aortocoronary bypass graft; Z95.5 Presence of coronary angioplasty implant and graft; Z79.82 Long term (current) use of aspirin; Z68.30 Body mass index [BMI] 30.0-30.9, adult; Z79.84 Long term (current) use of oral hypoglycemic drugs; Z79.02 Long term (current) use of antithrombotics/antiplatelets; Z79.899 Other long term (current) drug therapy; Z91.148 Patient's other noncompliance with medication regimen for other reason
CPT/HCPCS: 36415; 70450; 71045; 76770; 80048; 80053; 80061; 80076; 82947; 83605; 83735; 83880; 84484; 85025; 85610; 85730; 93005; 93306; 93880; 96360; 96361; 99285; G0378; J1170; J2405; J7030; J7040

== ENCOUNTER 2024-02-29 11:03 | Emergency (ER) | payer SELFPAY ==
[2024-02-29 11:45] LABS: Absolute Eosinophils 0.1 K/uL (0-0.5); Absolute Lymphocytes (CBC) 1.1 K/uL (0.7-4.9); Absolute Monocytes 0.4 K/uL (0.1-1.3); Absolute Neutrophil 4.5 K/uL (1.8-8.0); Basophils % 0.7 % (0-1.3); Eosinophils % 1.5 % (0-4.4); Hematocrit 44.7 % (39.6-49.0); Hemoglobin 15.1 g/dL (13.6-17.9); MCH 29.3 pg (27.0-35.0); MCHC 33.8 g/dL (32.0-36.0); MCV 86.8 fL (80-100); MPV 7.9 fL (7.6-11.3); Monocytes % 7.3 % (3.3-12.3); Neutrophils % 72.5 % (41.7-73.7); Nucleated Red Blood Cells % 0.1 % (0-0); Platelets 253 thou/uL (152-406); RBC Red Blood Cell Count 5.15 M/uL (4.33-5.43); Red Cell Distribution Width 13.5 % (12.1-15.2)
--- NOTE | 2024-02-29 11:53 | RAD REPORT ---
Procedure: Chest Single View HISTORY: Shortness of breath COMPARISON: October 2023 FINDINGS: The lungs appear clear of acute infiltrate. No significant pleural effusion noted. The heart is mildly enlarged. Post surgical changes involve the chest. IMPRESSION: No acute abnormality is displayed.
[2024-02-29 11:57] LABS: Anion Gap 10.2 mEq/L (5.0-15.0); Potassium 4.2 mEq/L (3.5-5.1); Troponin High Sensitivity 21.7 pg/mL (<58.9)
[2024-02-29] MEDS ORDERED: FUROSEMIDE 20 MG/ 2ML VIAL ONE (12:19)
[2024-02-29] MEDS ORDERED: FUROSEMIDE 40 MG/4 ML VIAL ONE (12:19)
[2024-02-29] MEDS ORDERED: MORPHINE 4 MG/ML SYR ONE (12:43)
--- NOTE | 2024-02-29 14:49 | EDPHYS ---
Physician Documentation [facility] Name: Jorge Schultz Jr Age: 58 yrs Sex: Male : 1965 Arrival Date: 02/29/2024 Time: 11:03 Bed 19 Private MD: ED Physician Tee Bragg HPI: 02/28 11:21 This 58 yrs old Male presents to ER via Ambulatory with complaints of rn Shortness Of Breath. 11:21 The patient has shortness of breath with light activity, during heavy activity. Onset: rn The symptoms/episode began/occurred 2 day(s) ago. Duration: The symptoms are intermittent. The patient's shortness of breath is aggravated by exertion, light activity, supine position, walking. Associated signs and symptoms: Pertinent negatives: fever, hemoptysis. Severity of symptoms: At their worst the symptoms were mild in the emergency department the symptoms are unchanged. The patient has experienced similar episodes in the past. The patient has not recently seen a physician. 11:21 Pt reports dyspnea on exertion and orthopnea x 2 days. No fever. Does not feel ill. No rn fever. Reports glucose mid 100s and BP has been better than ever lately. . Historical: - Allergies: 11:15 No Known Allergies; iw - PMHx: 11:15 Anxiety; Asthma; CAD; GERD; Glaucoma; High Cholesterol; Hypertension; IDDM; Myocardial iw infarction; - PSHx: 11:15 CABG; Stented artery; iw - Immunization history:: Adult Immunizations up to date. - Infectious Disease History:: Denies. - Social history:: Smoking status: Patient denies any tobacco usage or history of. - Family history:: not pertinent. - Hospitalizations: : No recent hospitalization is reported. ROS: 11:21 Constitutional: Negative for fever, chills, and weight loss, Cardiovascular: Negative rn for chest pain, palpitations, and edema, Respiratory: + sob with dyspnea on exertion and orthopnea Abdomen/GI: Negative for abdominal pain, nausea, vomiting, diarrhea, and constipation, MS/Extremity: Negative for injury and deformity, Neuro: Negative for headache, weakness, numbness, tingling, and seizure, Exam: 11:21 Constitutional: This is a well developed, well nourished patient who is awake, alert, rn and in no acute distress. Cardiovascular: Regular rate and rhythm. No pulse deficits. Respiratory: Mild tachypnea, diminished at bases, no retractions, no wheezing. Speaking full sentences. Abdomen/GI: Soft, non-tender MS/ Extremity: Pulses equal, no cyanosis. Neurovascular intact. Full, normal range of motion. Equal circumference. Neuro: Awake and alert, GCS 15 14:02 ECG was reviewed by the Attending Physician. rn Vital Signs: 11:13 BP 135 / 85; Pulse 68; Resp 19; Temp 97.6; Pulse Ox 100% on R/A; Weight 82.1 kg; Height iw 5 ft. 5 in. ; Pain 7/10; 12:01 BP 131 / 71; Pulse 77; Resp 17; Pulse Ox 99% on R/A; rs5 15:32 BP 134 / 79; Pulse 71; Resp 16; Pulse Ox 97% on R/A; Pain 0/10; iw 11:13 Body Mass Index 30.12 (82.10 kg, 165.1 cm) iw 11:13 Pain Scale: Adult iw 15:32 Pain Scale: Adult iw MDM: 11:07 Medical Screening Exam initiated rn 14:40 Differential diagnosis: Anemia CHF exacerbation, pneumonia, Pneumothorax pulmonary rn edema. Data reviewed: vital signs, nurses notes, lab test result(s), EKG, radiologic studies, plain films, and as a result, I will discharge patient. Counseling: I had a detailed discussion with the patient and/or guardian regarding the historical points, exam findings, and any diagnostic results supporting the discharge/admit diagnosis, lab results, radiology results, the need for outpatient follow up, to return to the emergency department if symptoms worsen or persist or if there are any questions or concerns that arise at home. Response to treatment: the patient's symptoms have markedly improved after treatment, and as a result, I will discharge patient. Special discussion: I discussed with the patient/guardian in detail that at this point there is no indication for admission to the hospital. It is understood, however, that if the symptoms persist or worsen the patient needs to return immediately for re-evaluation. Based on the history and exam findings, there is no indication for further emergent testing or inpatient evaluation. 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 I discussed with the patient/guardian the need to see the primary care provider for further evaluation of the symptoms. ED course: Patient does not take Lasix scheduled at home. Will discharge home with p.o. Lasix and has follow-up appointment with PCP on Wednesday. Will defer long-term Lasix use to PCP and cardiology. Oxygen 100% on room air, chest x-ray shows cardiomegaly but no pulmonary edema. Good response to Lasix here. 02/28 11:20 Order name: Basic Metabolic Panel; Complete Time: 12: rn 02/28 11:20 Order name: CBC with Diff; Complete Time: 11: rn 02/28 11:20 Order name: NT PRO-BNP; Complete Time: 12: rn 02/28 11:20 Order name: Troponin HS; Complete Time: 12: rn 02/28 11:20 Order name: XRAY Chest (1 view); Complete Time: : rn 02/28 11:20 Order name: Cardiac monitoring; Complete Time: 11: rn 02/28 11:20 Order name: EKG - Nurse/Tech; Complete Time: rn 02/28 11:20 Order name: IV Saline Lock; Complete Time: 11: rn 02/28 11:20 Order name: Labs collected and sent; Complete Time: : rn 02/28 11:20 Order name: O2 Per Protocol; Complete Time: rn 02/28 11:20 Order name: O2 Sat Monitoring; Complete Time: :53 rn EC:02 Rate is 67 beats/min. Rhythm is regular. PA interval is normal. QRS interval is normal. rn QT interval is normal. No Q waves. T waves are Normal. No ST changes noted. Clinical impression: NSR w/ Non-specific ST/T Changes. Interpreted by me. Reviewed by me. Administered Medications: 12:10 Drug: Furosemide IVP 60 mg IVP once; give over 2 minutes Route: IVP; Site: right rs5 antecubital; 15:32 Follow up: Response: No adverse reaction; Pain is decreased iw 13:03 Drug: morphine IVP or IV 4 mg IVP once over 4 mins Route: IVP; Infused Over: 4 mins; rs5 Site: right antecubital; 15:32 Follow up: Response: No adverse reaction; Pain is decreased iw Disposition Summary: 02/29/24 14:49 Discharge Ordered Notes: Location: Home rn Problem: an ongoing problem rn Symptoms: have improved rn Condition: Stable rn Diagnosis - Unspecified combined systolic (congestive) and diastolic (congestive) heart failure rn - Dyspnea, unspecified rn Followup: rn - With: Private Physician - When: As needed - Reason: Recheck today's complaints, Re-evaluation by your physician Discharge Instructions: - Discharge Summary Sheet rn - Shortness of Breath, Adult rn Forms: - Medication Reconciliation Form rn - Antibiotic endoscopy rn - Prescription Opioid Use rn - Patient Portal Instructions rn - Leadership Thank You Letter rn Prescriptions: - Lasix 20 mg Oral tablet - take 1 tablet ORAL route once daily As needed Take 1 tablet daily for 3 days, rn then take as needed for shortness of breath; 20 tablet; Refills: 0, Product Selection Permitted Signatures: Dispatcher [employer] Letha Haynes, RN Tee Ac MD MD rn Sotelo, Ricky, RN RN rs5
--- NOTE | 2024-02-29 14:49 | ER ---
Nurse's Notes [facility] Name: Jorge Schultz Jr Age: 58 yrs Sex: Male : 1965 Arrival Date: 02/29/2024 Time: 11:03 Bed 19 Private MD: Diagnosis: Unspecified combined systolic (congestive) and diastolic (congestive) heart failure;Dyspnea, unspecified Presentation: 02/28 11:13 Chief complaint: Patient states: SOB X 2 days, left lower back pain started this iw morning, back hurts when he breaths, denies injury. Coronavirus screen: Client presents with at least one sign or symptom that may indicate coronavirus-19. Ebola Screen: No symptoms or risks identified at this time. Initial Sepsis Screen: Does the patient meet any 2 criteria? No. Patient's initial sepsis screen is negative. Does the patient have a suspected source of infection? No. Patient's initial sepsis screen is negative. Risk Assessment: Do you want to hurt yourself or someone else? Patient reports no desire to harm self or others. Onset of symptoms was February 28, 2024. 11:13 Method Of Arrival: Ambulatory iw 11:13 Acuity: AALIYAH 3 iw Triage Assessment: 11:10 General: Appears in no apparent distress. uncomfortable. Respiratory: the patient has rs5 mild shortness of breath. Historical: - Allergies: 11:15 No Known Allergies; iw - PMHx: 11:15 Anxiety; Asthma; CAD; GERD; Glaucoma; High Cholesterol; Hypertension; IDDM; Myocardial iw infarction; - PSHx: 11:15 CABG; Stented artery; iw - Immunization history:: Adult Immunizations up to date. - Infectious Disease History:: Denies. - Social history:: Smoking status: Patient denies any tobacco usage or history of. - Family history:: not pertinent. - Hospitalizations: : No recent hospitalization is reported. Screenin:10 [facility] ED Fall Risk Assessment (Adult) History of falling in the last 3 months, rs5 including since admission No falls in past 3 months (0 pts) Confusion or Disorientation No (0 pts) Intoxicated or Sedated No (0 pts) Impaired Gait No (0 pts) Mobility Assist Device Used No (0 pt) Altered Elimination No (0 pt) Score/Fall Risk Level 0 - 2 = Low Risk Oriented to surroundings, Maintained a safe environment. Abuse screen: Denies threats or abuse. Nutritional screening: No deficits noted. Tuberculosis screening: No symptoms or risk factors identified. Assessment: 11:10 General: Appears in no apparent distress. uncomfortable, Behavior is calm, cooperative. rs5 Pain: Complains of pain in lower back pain Pain currently is 6 out of 10 on a pain scale. Quality of pain is described as aching, Is continuous. Neuro: Level of Consciousness is awake, alert, obeys commands, Oriented to person, place, time, situation. Cardiovascular: Rhythm is regular. Respiratory: Reports shortness of breath cough that is Airway is patent Respiratory effort is even, unlabored, Respiratory pattern is regular, symmetrical, GI: Abdomen is round non-distended, Abd is soft and non tender X 4 quads. : No signs and/or symptoms were reported regarding the genitourinary system. EENT: No signs and/or symptoms were reported regarding the EENT system. Derm: Skin is intact, Skin is pink, warm \T\ dry. Musculoskeletal: Range of motion: intact in all extremities. 12:08 Reassessment: Patient and/or family updated on plan of care and expected duration. Pain rs5 level reassessed. Patient is alert, oriented x 3, equal unlabored respirations, skin warm/dry/pink. 12:38 Reassessment: Patient and/or family updated on plan of care and expected duration. Pain rs5 level reassessed. Patient is alert, oriented x 3, equal unlabored respirations, skin warm/dry/pink. 14:01 Reassessment: Patient and/or family updated on plan of care and expected duration. Pain rs5 level reassessed. Patient is alert, oriented x 3, equal unlabored respirations, skin warm/dry/pink. 15:20 Reassessment: Patient and/or family updated on plan of care and expected duration. Pain rs5 level reassessed. Patient is alert, oriented x 3, equal unlabored respirations, skin warm/dry/pink. Vital Signs: 11:13 BP 135 / 85; Pulse 68; Resp 19; Temp 97.6; Pulse Ox 100% on R/A; Weight 82.1 kg; Height iw 5 ft. 5 in. ; Pain 7/10; 12:01 BP 131 / 71; Pulse 77; Resp 17; Pulse Ox 99% on R/A; rs5 15:32 BP 134 / 79; Pulse 71; Resp 16; Pulse Ox 97% on R/A; Pain 0/10; iw 11:13 Body Mass Index 30.12 (82.10 kg, 165.1 cm) iw 11:13 Pain Scale: Adult iw 15:32 Pain Scale: Adult iw ED Course: 11:07 Patient arrived in ED. sj2 11:07 Tee Bragg MD is Attending Physician. rn 11:10 Patient has correct armband on for positive identification. Placed in gown. Bed in low rs5 position. Call light in reach. Side rails up X2. 11:10 No provider procedures requiring assistance completed. rs5 11:15 Triage completed. iw 11:15 Arm band placed on. iw 11:27 Sunil Duran, RN is Primary Nurse. rs5 11:31 Basic Metabolic Panel Sent. bc6 11:31 CBC with Diff Sent. bc6 11:31 NT PRO-BNP Sent. bc6 11:31 Troponin HS Sent. bc6 11:31 Initial lab(s) drawn, by me, sent to lab. Inserted saline lock: 20 gauge in right bc6 forearm, using aseptic technique. Blood collected. Flushed with 10 mL NS. 11:43 XRAY Chest (1 view) In Process Unspecified. EDMS 15:25 Provided Education on: discharge instrutions . rs5 15:32 IV discontinued, intact, bleeding controlled, No redness/swelling at site. Pressure iw dressing applied. Administered Medications: 12:10 Drug: Furosemide IVP 60 mg IVP once; give over 2 minutes Route: IVP; Site: right rs5 antecubital; 15:32 Follow up: Response: No adverse reaction; Pain is decreased iw 13:03 Drug: morphine IVP or IV 4 mg IVP once over 4 mins Route: IVP; Infused Over: 4 mins; rs5 Site: right antecubital; 15:32 Follow up: Response: No adverse reaction; Pain is decreased iw Medication: 12:38 VIS not applicable for this client. rs5 Outcome: 14:49 Discharge ordered by . rn 15:32 Discharged to home ambulatory, iw 15:32 Condition: good 15:32 Discharge instructions given to patient, Instructed on discharge instructions, follow up and referral plans. medication usage, Demonstrated understanding of instructions, follow-up care, medications, Prescriptions given X 1, 15:33 Patient left the ED. iw Signatures: Dispatcher [employer] EDLetha Mistry RN RN iw Nieto, Roman, MD MD rn Sotelo, Ricky, RN RN rs5 Beatrice Poe 6 Mark Walden 2
[2024-02-29 16:05] VITALS: BP 135/85; TEMP 97.6; O2SAT 100
--- NOTE | 2024-03-06 11:05 | EKG ---
Test Date: 2024-02-29 Test Time: 11:34:01 Grinder Set Up Operator Universal: HIEU MEASUREMENT RESULTS: Intervals: Rate: 67 VA: 144 QRSD: 108 QT: 436 QTc: 460 [place]: P: 47 VA: 144 QRS: -89 T: -82 INTERPRETIVE STATEMENTS: Normal sinus rhythm Left anterior fascicular block Septal infarct, age undetermined Lateral infarct, age undetermined Abnormal ECG Compared to ECG 10/28/2023 10:18:51 Left anterior fascicular block now present Sinus bradycardia no longer present Left-axis deviation no longer present T-wave abnormality no longer present Possible ischemia no longer present Myocardial infarct finding still present Electronically Signed On 03-06-24 10:58:05 CHEMICAL APPLICATOR by Lam Pelayo
== END 2024-02-29 15:33 | disposition home or self-care (01) ==
LOC: ER 11:03
DX: R06.00 Dyspnea, unspecified (principal); I50.40 Unspecified combined systolic (congestive) and diastolic (congestive) heart failure
CPT/HCPCS: 36415; 71045; 80048; 83880; 84484; 85025; 93005; 96374; 96375; 99284; J1940

== ENCOUNTER 2024-03-19 15:40 | Observation (INO) | payer SELFPAY ==
--- NOTE | 2024-03-19 16:25 | RAD REPORT ---
EXAM: Chest Single View HISTORY: CHEST PAIN COMPARISON: None. FINDINGS: LUNGS/PLEURA: The lungs are clear. No pleural effusions or pneumothorax. No pulmonary edema. MEDIASTINUM: The mediastinal silhouette is within normal limits. CARDIAC: The cardiac silhouette is within normal limits. UPPER ABDOMEN: No significant abnormality. BONES: Sternotomy. No acute abnormality. LINES/TUBES/OTHER: N/A IMPRESSION: No evidence of acute cardiopulmonary disease.
[2024-03-19] MEDS ORDERED: ASPIRIN 81 MG CHEWABLE TABLET ONE (16:34)
[2024-03-19 17:06] LABS: Absolute Eosinophils 0.2 K/uL (0-0.5); Absolute Lymphocytes (CBC) 1.6 K/uL (0.7-4.9); Absolute Monocytes 0.4 K/uL (0.1-1.3); Absolute Neutrophil 3.2 K/uL (1.8-8.0); Basophils % 0.6 % (0-1.3); Eosinophils % 2.9 % (0-4.4); Hematocrit 37.4 % (39.6-49.0); Hemoglobin 13.1 g/dL (13.6-17.9); Lymphocytes % 29.4 % (15.3-44.8); MCH 29.6 pg (27.0-35.0); MCHC 34.9 g/dL (32.0-36.0); MCV 84.7 fL (80-100); MPV 8.1 fL (7.6-11.3); Monocytes % 7.8 % (3.3-12.3); Neutrophils % 59.3 % (41.7-73.7); Nucleated Red Blood Cells % 0.1 % (0-0); Platelets 147 thou/uL (152-406); RBC Red Blood Cell Count 4.42 M/uL (4.33-5.43); Red Cell Distribution Width 13.6 % (12.1-15.2)
[2024-03-19 17:31] LABS: Anion Gap 11.6 mEq/L (5.0-15.0); Magnesium 1.3 mg/dL (1.6-2.4); Potassium 3.6 mEq/L (3.5-5.1)
[2024-03-19 17:35] LABS: Troponin High Sensitivity 95.1 pg/mL (<58.9)
--- NOTE | 2024-03-19 17:58 | ER ---
Nurse's Notes [facility] Name: Jorge Schultz Jr Age: 58 yrs Sex: Male : 1965 Arrival Date: 03/19/2024 Time: 15:40 Bed 15 Private MD: Diagnosis: Chest pain, unspecified-NSTEMI Presentation: 03/19 15:56 Chief complaint: Patient states: CHEST PAIN TIGHTNESS AND SOB RADIATING TO LEFT ARM AND db FINGERS X 2 HOURS. Coronavirus screen: At this time, unable to obtain information related to travel outside the [place] At this time, the client does not indicate any symptoms associated with coronavirus-19. Ebola Screen: Patient negative for fever greater than or equal to 101.5 degrees Fahrenheit, and additional compatible Ebola Virus Disease symptoms Patient denies exposure to infectious person. Patient denies travel to an Ebola-affected area in the 21 days before illness onset. No symptoms or risks identified at this time. Initial Sepsis Screen: Does the patient meet any 2 criteria? No. Patient's initial sepsis screen is negative. Does the patient have a suspected source of infection? No. Patient's initial sepsis screen is negative. Risk Assessment: Do you want to hurt yourself or someone else? Patient reports no desire to harm self or others. Onset of symptoms was March 19, 2024. 15:56 Method Of Arrival: Ambulatory db 15:56 Acuity: AALIYAH 2 db Historical: - Allergies: 15:58 No Known Allergies; db - PMHx: 15:58 Anxiety; CAD; High Cholesterol; Asthma; Myocardial infarction; Glaucoma; GERD; IDDM; db Hypertension; - PSHx: 15:58 CABG; Stented artery; db - Immunization history:: Adult Immunizations unknown. - Infectious Disease History:: Denies. - Social history:: Smoking status: Patient denies any tobacco usage or history of. Screenin:15 [facility] ED Fall Risk Assessment (Adult) History of falling in the last 3 months, kj2 including since admission No falls in past 3 months (0 pts) Confusion or Disorientation No (0 pts) Intoxicated or Sedated No (0 pts) Impaired Gait No (0 pts) Mobility Assist Device Used No (0 pt) Altered Elimination No (0 pt) Score/Fall Risk Level 0 - 2 = Low Risk Maintained a safe environment, Hourly rounding (assess needs \T\ fall precautionary measures) done. Abuse screen: Denies threats or abuse. Denies injuries from another. Nutritional screening: No deficits noted. Tuberculosis screening: No symptoms or risk factors identified. Assessment: 16:15 General: Appears in no apparent distress. Behavior is calm, cooperative. Pain: kj2 Complains of pain in chest Pain radiates to left arm Pain began 4 hours ago. Neuro: Level of Consciousness is awake, alert, obeys commands, Oriented to person, place, time, situation. Cardiovascular: Patient's skin is warm and dry. 17:15 Reassessment: Patient appears in no apparent distress at this time. Patient and/or kj2 family updated on plan of care and expected duration. Pain level reassessed. Patient is alert, oriented x 3, equal unlabored respirations, skin warm/dry/pink. 18:15 Reassessment: Patient appears in no apparent distress at this time. Patient and/or kj2 family updated on plan of care and expected duration. Pain level reassessed. Patient is alert, oriented x 3, equal unlabored respirations, skin warm/dry/pink. 19:11 Reassessment: Patient appears in no apparent distress at this time. kj2 19:11 Reassessment: Patient appears in no apparent distress at this time. Patient and/or kj2 family updated on plan of care and expected duration. Pain level reassessed. Patient is alert, oriented x 3, equal unlabored respirations, skin warm/dry/pink. Vital Signs: 15:56 BP 134 / 91; Pulse 75; Resp 18; Temp 97.2; Pulse Ox 97% ; db 17:15 BP 136 / 88; Pulse 80; Resp 20; Pulse Ox 98% on R/A; kj2 18:15 BP 142 / 100; Pulse 82; Resp 20; kj2 18:55 Weight 81.65 kg; kj2 19:05 BP 142 / 100; Pulse 78; Resp 17; Temp 98(O); Pulse Ox 97% on R/A; Pain 2/10; rg5 22:30 BP 128 / 95; Pulse 75; Resp 17; Pulse Ox 97% on R/A; Pain 0/10; rg5 19:05 Pain Scale: Adult rg5 22:30 Pain Scale: Adult rg5 ED Course: 15:42 Patient arrived in ED. im 15:56 [facility]C [facility] kb 15:56 Tee Bragg MD is Attending Physician. kb 15:58 Triage completed. db 16:15 Provided Education on: call light. Client placed on continuous cardiac and pulse kj2 oximetry monitoring. NIBP monitoring applied. monitoring analyst on. Pulse ox on. 16:21 XRAY Chest (1 view) In Process Unspecified. EDMS 16:27 Kari Cotto, RN is Primary Nurse. kj2 16:30 Patient has correct armband on for positive identification. Bed in low position. Call kj2 light in reach. Adult w/ patient. 17:04 Initial lab(s) drawn, by me, sent to lab. EKG done, by ED staff, reviewed by Yuli [email or web address] Boyd PAYNE. Inserted saline lock: 20 gauge in left forearm, using aseptic technique. Blood collected. Flushed with 10 mL NS. 17:57 Scott Kincaid MD is Hospitalizing Provider. kb 19:05 Arm band placed on. rg5 19:05 No provider procedures requiring assistance completed. rg5 19:05 Patient admitted, IV remains in place. intact, No redness/swelling at site. Patient rg5 maintains SpO2 saturation greater than 95% on room air. Administered Medications: 16:36 Drug: Aspirin PO Chewable Tablet 324 mg PO once; 81 mg tablets x 4 Route: PO; kj2 18:16 Drug: Magnesium Sulfate IVPB 1 grams IVPB once over 1 hrs Route: IVPB; Infused Over: 1 kj2 hrs; Site: left antecubital; 18:16 Drug: morphine IVP or IV 4 mg IVP once over 4 mins Route: IVP; Infused Over: 4 mins; kj2 Site: left antecubital; 18:16 Drug: Ondansetron IVP 4 mg IVP once; over 2 minutes Route: IVP; Site: left antecubital; kj2 19:07 Drug: Heparin (VT Drip) 12 units/kg/hr - ([place] [address] units, D5W IV 500 ml) IV at kj2 calculated rate Per protocol; Max initial rate 1000 units/hr {Co-Signature: ko1 (Kayla Webb RN).} Route: IV; Rate: 980 units/hr; Site: left antecubital; 19:07 Drug: Heparin (VT-Bolus No thrombolytic) - HEParin IVP 60 units/kg IVP once; Max 5000 kj2 units {Co-Signature: ko1 (Kayla Webb RN).} Route: IVP; Site: left antecubital; 22:11 Follow up: Response: No adverse reaction rg5 Medication: 16:29 VIS not applicable for this client. kj2 Outcome: 17:57 Decision to Hospitalize by Provider. kb 19:05 Admitted to ER Hold. Please see [facility] for further documentation. rg5 19:05 Condition: stable 19:05 Instructed on the need for admit, 23:26 Patient left the ED. rg5 Signatures: Dispatcher [employer] EDMS Yuli Nix, CHUY-C SNORKELLING INSTRUCTOR-CkYola Fofana, RN RN Christen Pond Rommel RN RN rg5 Kari Cotto RN RN kj2 GordonAntonina kb4 Kayla Webb RN ko1
--- NOTE | 2024-03-19 17:58 | EDPHYS ---
Physician Documentation [facility] Name: Jorge Schultz Jr Age: 58 yrs Sex: Male : 1965 Arrival Date: 03/19/2024 Time: 15:40 Bed 15 Private MD: ED Physician Tee Bragg HPI: 03/19 17:20 This 58 yrs old Male presents to ER via Ambulatory with complaints of Chest kb Tightness, Shortness Of Breath. 17:20 Patient is a 58-year-old male who presents for left-sided chest pain that radiates down kb the left arm with associated shortness of breath and nausea that started 2 and half hours prior to arrival. States this pain feels similar to previous episodes of chest pain and he has had several MIs and CABG in the past.. Historical: - Allergies: 15:58 No Known Allergies; db - PMHx: 15:58 Anxiety; CAD; High Cholesterol; Asthma; Myocardial infarction; Glaucoma; GERD; IDDM; db Hypertension; - PSHx: 15:58 CABG; Stented artery; db - Immunization history:: Adult Immunizations unknown. - Infectious Disease History:: Denies. - Social history:: Smoking status: Patient denies any tobacco usage or history of. ROS: 17:14 Constitutional: As per HPI kb Exam: 17:14 Constitutional: This is a well developed, well nourished patient who is awake, alert, kb and in no acute distress. Head/Face: Normocephalic, atraumatic. ENT: Moist Mucous membranes Cardiovascular: Regular rate Respiratory: Respirations even and unlabored. No increased work of breathing. Talking in full sentences Abdomen/GI: Soft, non-tender. No distention Skin: Warm, dry with normal turgor. Normal color. MS/ Extremity: Pulses equal, no cyanosis. Neurovascular intact. Full, normal range of motion. Neuro: Awake and alert, GCS 15, oriented to person, place, time, and situation. 17:14 ECG was reviewed by the Attending Physician. Vital Signs: 15:56 BP 134 / 91; Pulse 75; Resp 18; Temp 97.2; Pulse Ox 97% ; db 17:15 BP 136 / 88; Pulse 80; Resp 20; Pulse Ox 98% on R/A; kj2 18:15 BP 142 / 100; Pulse 82; Resp 20; kj2 18:55 Weight 81.65 kg; kj2 19:05 BP 142 / 100; Pulse 78; Resp 17; Temp 98(O); Pulse Ox 97% on R/A; Pain 2/10; rg5 22:30 BP 128 / 95; Pulse 75; Resp 17; Pulse Ox 97% on R/A; Pain 0/10; rg5 19:05 Pain Scale: Adult rg5 22:30 Pain Scale: Adult rg5 MDM: 15:56 Medical Screening Exam initiated kb 17:14 Data reviewed: vital signs, nurses notes. kb 17:50 Differential diagnosis: acute mi, arrhythmia, cad. Consideration of kb Admission/Observation Patient was admitted/placed on observation. Escalation of care including admission/observation considered. Management of patient was discussed with the following: Diesel Bus Mechanic: Dr Adair accepts pt for consult and wants heparin drip initiated . Care significantly affected by the following chronic conditions: Diabetes, Hypertension. Counseling: I had a detailed discussion with the patient and/or guardian regarding the historical points, exam findings, and any diagnostic results supporting the discharge/admit diagnosis, lab results, radiology results, the need for further work-up and treatment in the hospital. 17:59 Management of patient was discussed with the following: Hospitalist: Dr Codi haider accepts pt for admission. 03/19 15:59 Order name: Basic Metabolic Panel; Complete Time: 17:37 kb 03/19 15:59 Order name: CBC with Diff; Complete Time: 17:13 kb 03/19 15:59 Order name: Magnesium; Complete Time: 17:37 kb 03/19 15:59 Order name: NT PRO-BNP; Complete Time: 17:37 kb 03/19 15:59 Order name: Troponin HS; Complete Time: 17:37 kb 03/19 19:45 Order name: CBC with Automated Diff EDMS 03/19 19:45 Order name: CBC with Automated Diff EDMS 03/19 19:45 Order name: Comprehensive Metabolic Panel EDID 03/19 19:45 Order name: Comprehensive Metabolic Panel EDMS 03/19 19:45 Order name: Lipid Profile EDMS 03/19 19:45 Order name: Lipid Profile EDMS 03/19 19:45 Order name: Troponin High Sensitivity EDMS 03/19 19:45 Order name: Troponin High Sensitivity EDMS 03/19 19:45 Order name: Troponin High Sensitivity EDMS 03/19 19:45 Order name: Troponin High Sensitivity [facility] 03/19 15:59 Order name: XRAY Chest (1 view); Complete Time: 16:34 kb 03/19 15:59 Order name: EKG; Complete Time: 16:00 kb 03/19 19:45 Order name: CONS Physician Consult [facility] 03/19 15:59 Order name: Cardiac monitoring; Complete Time: 17:04 kb 03/19 15:59 Order name: EKG - Nurse/Tech; Complete Time: 17:04 kb 03/19 15:59 Order name: IV Saline Lock; Complete Time: 17:04 kb 03/19 15:59 Order name: Labs collected and sent; Complete Time: 17:04 kb 03/19 15:59 Order name: O2 Per Protocol; Complete Time: 17:04 kb 03/19 15:59 Order name: O2 Sat Monitoring; Complete Time: 17:04 kb EC:14 Rate is 73 beats/min. Rhythm is regular. QRS Davis is Normal. TN interval is normal at kb 156 msec. QRS interval is normal at 108 msec. QT interval is normal at 467 msec. Administered Medications: 16:36 Drug: Aspirin PO Chewable Tablet 324 mg PO once; 81 mg tablets x 4 Route: PO; kj2 18:16 Drug: Magnesium Sulfate IVPB 1 grams IVPB once over 1 hrs Route: IVPB; Infused Over: 1 kj2 hrs; Site: left antecubital; 18:16 Drug: morphine IVP or IV 4 mg IVP once over 4 mins Route: IVP; Infused Over: 4 mins; kj2 Site: left antecubital; 18:16 Drug: Ondansetron IVP 4 mg IVP once; over 2 minutes Route: IVP; Site: left antecubital; kj2 19:07 Drug: Heparin (HI Drip) 12 units/kg/hr - ([place] [address] units, D5W IV 500 ml) IV at kj2 calculated rate Per protocol; Max initial rate 1000 units/hr {Co-Signature: audra (Kayla Webb RN).} Route: IV; Rate: 980 units/hr; Site: left antecubital; 19:07 Drug: Heparin (HI-Bolus No thrombolytic) - HEParin IVP 60 units/kg IVP once; Max 5000 kj2 units {Co-Signature: audra (Kayla Webb RN).} Route: IVP; Site: left antecubital; 22:11 Follow up: Response: No adverse reaction rg5 Disposition: 03/20 17:23 Co-signature as Attending Physician, Tee Bragg MD I reviewed the patient's care rn provided by the Advanced Practice Provider and agree with the diagnosis and treatment plan. Disposition Summary: 03/19/24 17:57 Hospitalization Ordered Notes: Hospitalization Status: Inpatient Admission kb Provider: Scott Kincaid Condition: Stable kb Problem: new kb Symptoms: are unchanged kb Bed/Room Type: Standard kb Location: Telemetry/MedSurg (observation)(03/19/24 21:58) rv1 Room Assignment: [facility](03/19/24 21:58) rv1 Diagnosis - Chest pain, unspecified - NSTEMI kb Forms: - Medication Reconciliation Form kb - SBAR form kb - Leadership Thank You Letter kb Signatures: Dispatcher [employer] EDMS Yuli Nix, JOINTER SUBMARINE CABLE-C JOINTER SUBMARINE CABLE-Ckb Tee Bragg MD MD rn Able, Lacie, RN RN lg3 Yola Dominguez, RN RN Debra Burt rv1 Kari Cotto, RN RN kj2 Paulino Juárez RN rg5 Kayla Webb RN ko1 Corrections: (The following items were deleted from the chart) 03/19 18:06 17:50 Management of patient was discussed with the following: Diesel Bus Mechanic: Dr Mana haider accepts pt for consult.. kb 19:08 17:57 Telemetry/MedSurg (Inpatient) kb lg3 19:08 17:57 kb lg3 21:58 19:08 [facility] ER HOLD lg3 rv1 21:58 19:08 ERHOLD- lg3 rv1
[2024-03-19] MEDS ORDERED: MORPHINE 4 MG/ML SYR ONE (18:06)
[2024-03-19] MEDS ORDERED: ONDANSETRON 4 MG/2 ML VIAL ONE (18:06)
[2024-03-19] MEDS ORDERED: MAGNESIUM SULFATE 1 gm IVPB 1 GM/100 ML BAG IV ONE (18:06)
[2024-03-19] MEDS ORDERED: HEPARIN 5000 UNIT/ML 1 ML VIAL ONE (18:58)
[2024-03-19] MEDS ORDERED: HEPARIN/D5W 25,000 UNIT/500 ML BAG IV ONE (18:59)
[2024-03-19] MEDS ORDERED: ALBUTEROL 2.5 MG/3 ML NEB SOL NEB PRN (19:37)
[2024-03-19] MEDS ORDERED: ACETAMINOPHEN 500 MG TAB PO PRN (19:37)
[2024-03-19] MEDS ORDERED: ONDANSETRON 4 MG/2 ML VIAL IV PRN (19:37)
[2024-03-19] MEDS ORDERED: HYDRALAZINE HCL 20 MG/ML VIAL IV PRN (19:40)
[2024-03-19] MEDS: CLOPIDOGREL 75 MG TABLET PO SCH (19:40)
[2024-03-19] MEDS: ASPIRIN EC 81 MG TAB PO SCH (19:41)
[2024-03-19] MEDS: DIPHENHYDRAMINE 50 MG/ML VIAL IV ONE (19:44)
--- NOTE | 2024-03-19 19:51 | P.HP ---
Certification for Inpatient Patient admitted to: Observation With expected LOS: <2 Midnights Patient will require the following post-hospital care: None Practitioner: I am a practitioner with admitting privileges, knowledge of patient current condition, hospital course, and medical plan of care. Services: Services provided to patient in accordance with Admission requirements found in Title 42 Section 412.3 of the Code of Federal Regulations Patient History Date of Service: 03/19/24 Reason for admission: Left-sided chest pain History of Present Illness: 58-year-old male with past medical history of HTN/DM/CAD status post CABG and subsequent PCI x 4, last was 2 years ago follows with Dr. Adair, history of diastolic CHF on chronic diuretics, who presented because of new onset left- sided chest pain. Pain onset was 1 day ago. Pain was associated with mild shortness of breath as well as some feeling of nausea but denies any vomiting. Patient denies any syncope or palpitation. He denies any loss of consciousness. Pain did not radiate to any side but was located in the left lateral border. He rated pain at its worst at about 10 out of 10. He presented to the ED because of onset of symptoms. On arrival in the ED he received aspirin x 4 tabs with minimal change in pain. He still rates pain at about 6-7 out of 10 now. Vital signs were stable, laboratory workup shows creatinine of 1.4about baseline, troponin of 95, proBNP of 9970. Serum magnesium was low at 1.3 EKG shows normal sinus rhythm with incomplete right bundle branch blockchronic with no new changes. Chest x-ray shows no acute infiltrates or pulmonary edema. Allergies No Known Drug Allergies Allergy (Verified 07/14/22 00:06) Unknown Home Medications: Carisoprodol [Soma] 350 mg PO TID PRN 07/04/22 Insulin Glargine,Hum.rec.anlog [Lantus] 20 units SQ BEDTIME 07/04/22 Metformin HCl 1,000 mg PO BIDWM 07/04/22 Liraglutide [Victoza 2-Imer] 1.8 mg SQ DAILY 07/05/22 Atorvastatin Calcium [Lipitor*] 40 mg PO BEDTIME 04/13/23 Alprazolam [Xanax] 1 mg PO DAILY 04/29/23 Meclizine HCl 25 mg PO DAILY 08/20/23 Aspirin [Ecotrin 81 MG] 81 mg PO DAILY #30 tab 08/21/23 Clopidogrel Bisulfate [Plavix*] 75 mg PO BEDTIME #30 tab 08/21/23 Hydrocodone 10/APAP 325 [[place] 10/325*] 1 tab PO TID PRN #15 tab 08/21/23 Losartan Potassium [Cozaar*] 50 mg PO DAILY 30 Days #30 tablet 10/30/23 carvediloL [Coreg] 6.25 mg PO BID 60 Days #60 tab 10/30/23 - Past Medical/Surgical History Diabetic: Yes -: X3 MIs -: IDDM -: chronic back pain -: cataracts -: glaucoma rt eye -: cellulitis -: staph infection with CABG -: Glaucoma -: Staph infection wound chest -: HLD -: Anxiety -: GERD -: cardiac cath -: lumbar epidural injection x3 -: CABG (May 29 2014) x 4 vessels -: Cardiac stents x2 01/20/2022 -: Cardiac stents x2 01/20/2022 Psychosocial/ Personal History: Patient lives at home with his . - Family History Mother -: Heart disease, Diabetes Father -: Stroke, Cancer Notes: Multiple CANCER Sister -: Cancer Notes: liver - Social History Smoking Status: Never smoker Smoking therapy provided: No Patient receptive to therapy: No Alcohol use: No CD- Drugs: No Caffeine use: Yes Place of Residence: Home Review of Systems Respiratory: Shortness of Breath Cardiovascular: Chest Pain Gastrointestinal: Nausea Physical Examination - Physical Exam General: Alert, In no apparent distress, Oriented x3, Cooperative, Obese HEENT: Atraumatic, Normocephalic, PERRLA Neck: Supple, 2+ carotid pulse no bruit Respiratory: Clear to auscultation bilaterally, Normal air movement Cardiovascular: Normal pulses, Regular rate/rhythm, Normal S1 S2 Capillary refill: <2 Seconds Gastrointestinal: Normal bowel sounds, Soft and benign, Non-distended, No ascites, No tenderness Musculoskeletal: No clubbing, No swelling Neurological: Normal gait, Normal speech, Normal strength at 5/5 x4 extr, Normal tone, Sensation intact, Cranial nerves 3-12 intact Lymphatics: No axilla or inguinal lymphadenopathy - Studies Laboratory Data (last 24 hrs) 03/19/24 03/19/24 16:59 16:59 WBC 5.30 Hgb 13.1 L Hct 37.4 L Plt Count 147 L Sodium 134 L Potassium 3.6 BUN 24 H Creatinine 1.44 H Glucose 219 H Magnesium 1.3 L Assessment and Plan - Problems (Diagnosis) (1) Chest pain Onset Date: 07/29/15 Current Visit: No Status: Acute Qualifiers: (2) Left anterior fascicular block Current Visit: No Status: Acute (3) Non-insulin dependent type 2 diabetes mellitus Onset Date: 12/31/14 Current Visit: No Status: Acute (4) Obesity (BMI 30-39.9) Current Visit: No Status: Acute (5) Diabetes mellitus Current Visit: No Status: Chronic Qualifiers: (6) Hypercholesterolemia Onset Date: 12/31/14 Current Visit: No Status: Chronic - Plan Impression/plan Atypical chest pain Elevated troponin Hypertension DM History of CAD Hypomagnesemia We admit patient to observation Mild troponin elevation, follow repeat trend Start patient on Nitropatch Resume home meds Cardiology consult Resume aspirin and Plavix Elevated proBNP but no pulmonary edema and no respiratory symptoms, continue Lasix for now Severe low magnesium level noted, start IV replacement and then p.o. magnesium tabs Subcutaneous Lovenox for DVT prophylaxis Place in telemetry Follow lipid panel level Dispopossible hospital stay for 24 to 48 hours - Advance Directives Does patient have a Living Will: No Does patient have a Durable POA for Healthcare: No Physician Review: Patient Assessed, Agree with Above Assessment and Plan Time Spent Managing Pts Care (In Minutes): 70
[2024-03-19] MEDS ORDERED: LORAZEPAM 0.5 MG TABLET PO PRN (19:53)
[2024-03-19] MEDS ORDERED: carvediloL 6.25 MG TAB ONE (21:51)
[2024-03-19] MEDS ORDERED: NITROGLYCERIN 1 GM PKT TD ONE (21:51)
[2024-03-19] MEDS ORDERED: ATORVASTATIN 40 MG TAB ONE (21:51)
[2024-03-19] MEDS ORDERED: INSULIN REGULAR (HUMAN) 100 UNIT/ML ONE (21:52)
[2024-03-19] MEDS ORDERED: DIPHENHYDRAMINE 50 MG/ML VIAL ONE (21:52)
[2024-03-19] MEDS: NITROGLYCERIN 0.2 MG/HR (5 MG) PATCH TD SCH (22:04)
[2024-03-19] MEDS: carvediloL 6.25 MG TAB PO SCH (22:05)
[2024-03-19] MEDS: INSULIN LISPRO 100 UNIT/1 ML SQ SCH (22:05)
[2024-03-19] MEDS: ATORVASTATIN 20 MG TAB PO SCH (22:06)
[2024-03-19 22:44] VITALS: BMI 29.9
[2024-03-19] MEDS: MORPHINE 2 MG/ML SYR IV PRN (23:49)
[2024-03-20] MEDS ORDERED: INSULIN REGULAR (HUMAN) 100 UNIT/ML SQ SCH
[2024-03-20 06:33] LABS: Absolute Eosinophils 0.2 K/uL (0-0.5); Absolute Lymphocytes (CBC) 1.6 K/uL (0.7-4.9); Absolute Monocytes 0.4 K/uL (0.1-1.3); Absolute Neutrophil 2.1 K/uL (1.8-8.0); Basophils % 0.8 % (0-1.3); Eosinophils % 4.4 % (0-4.4); Hematocrit 39.3 % (39.6-49.0); Hemoglobin 13.7 g/dL (13.6-17.9); Lymphocytes % 37.6 % (15.3-44.8); MCH 29.8 pg (27.0-35.0); MCHC 34.8 g/dL (32.0-36.0); MCV 85.6 fL (80-100); Monocytes % 9.1 % (3.3-12.3); Neutrophils % 48.1 % (41.7-73.7); Nucleated Red Blood Cells % 0.2 % (0-0); Platelets 167 thou/uL (152-406); RBC Red Blood Cell Count 4.59 M/uL (4.33-5.43); Red Cell Distribution Width 13.3 % (12.1-15.2)
[2024-03-20 06:54] LABS: Albumin 2.9 g/dL (3.4-5.0); Albumin/Globulin Ratio 0.8 (1.1-1.8); Anion Gap 9.9 mEq/L (5.0-15.0); Bilirubin Total 0.5 mg/dL (0.2-1.0); Globulin 3.7 g/dL (2.3-3.5); Potassium 3.9 mEq/L (3.5-5.1); Protein, Total 6.6 g/dL (6.4-8.2)
[2024-03-20] MEDS: METFORMIN HCL 500 MG TAB PO SCH (08:45)
[2024-03-20] MEDS: MAGNESIUM OXIDE 400 MG TAB PO SCH (08:45)
[2024-03-20] MEDS: ENOXAPARIN 40 MG/0.4 ML SQ SCH (08:45)
[2024-03-20] MEDS: FUROSEMIDE 40 MG TABLET PO SCH (08:46)
[2024-03-20] MEDS ORDERED: FUROSEMIDE 40 MG TABLET PO SCH (09:00)
[2024-03-20 09:10] LABS: Specific Gravity 1.007 (1.005-1.030); Urine Bilirubin NEGATIVE (Negative); Urine Blood Negative (Negative); Urine Clarity Clear (Clear); Urine Color Colorless (Yellow); Urine Glucose TRACE (Negative); Urine Ketones NEGATIVE (Negative); Urine Microscopic Reflex YN NO UMIC; Urine Nitrite NEGATIVE (Negative); Urine Protein NEGATIVE (Negative); Urine Urobilinogen Normal (Normal); Urine pH 5.5 (5.0-7.0)
[2024-03-20 12:39] VITALS: BP 115/69; TEMP 97.9
--- NOTE | 2024-03-20 12:40 | P.CNS ---
Date of Consult: 03/20/24 Chief Complaint: Left-sided chest pain History of Present Illness: Patient with PMH of CAD s/p PCI of LAD and LCX, also CABG with SVG to RCA presented with one episode of chest pain, lasted for few hours, patient was chest pain free at interview, deneis MEJIA, no SOB, no palpitations, no syncope. Allergies No Known Drug Allergies Allergy (Verified 07/14/22 00:06) Unknown Home medications list reviewed: Yes Home Medications: Carisoprodol [Soma] 350 mg PO TID PRN 07/04/22 Insulin Glargine,Hum.rec.anlog [Lantus] 20 units SQ BEDTIME 07/04/22 Metformin HCl 1,000 mg PO BIDWM 07/04/22 Liraglutide [Victoza 2-Imer] 1.8 mg SQ DAILY 07/05/22 Atorvastatin Calcium [Lipitor*] 40 mg PO BEDTIME 04/13/23 Alprazolam [Xanax] 1 mg PO DAILY 04/29/23 Meclizine HCl 25 mg PO DAILY 08/20/23 Aspirin [Ecotrin 81 MG] 81 mg PO DAILY #30 tab 08/21/23 Clopidogrel Bisulfate [Plavix*] 75 mg PO BEDTIME #30 tab 08/21/23 Hydrocodone 10/APAP 325 [[place] 10/325*] 1 tab PO TID PRN #15 tab 08/21/23 Losartan Potassium [Cozaar*] 50 mg PO DAILY 30 Days #30 tablet 10/30/23 carvediloL [Coreg] 6.25 mg PO BID 60 Days #60 tab 10/30/23 - Past Medical/Surgical History Diabetic: Yes -: X3 MIs -: IDDM -: chronic back pain -: cataracts -: glaucoma rt eye -: cellulitis -: staph infection with CABG -: Glaucoma -: Staph infection wound chest -: HLD -: Anxiety -: GERD -: cardiac cath -: lumbar epidural injection x3 -: CABG (May 29 2014) x 4 vessels -: Cardiac stents x2 01/20/2022 -: Cardiac stents x2 01/20/2022 Psychosocial/ Personal History: Patient lives at home with his . - Family History Mother Medical History: Heart disease, Diabetes Father Medical History: Stroke, Cancer Notes: Multiple CANCER Sister Medical History: Cancer Notes: liver - Social History Smoking Status: Unknown if ever smoked Alcohol use: No CD- Drugs: No Caffeine use: Yes Place of Residence: Home Review of Systems 10-point ROS is otherwise unremarkable Physical Examination Temp Pulse Resp BP Pulse Ox 97.5 F 62 18 102/61 100 03/20/24 08:00 03/20/24 08:47 03/20/24 11:18 03/20/24 08:47 03/20/24 11:18 General: Alert, In no apparent distress HEENT: Atraumatic, PERRLA, Mucous membr. moist/pink, EOMI, Sclerae nonicteric Neck: Supple, 2+ carotid pulse no bruit, No LAD, Without JVD or thyroid abnormality Respiratory: Clear to auscultation bilaterally, Normal air movement Cardiovascular: Regular rate/rhythm, Normal S1 S2 Gastrointestinal: Normal bowel sounds, No tenderness Musculoskeletal: No tenderness Integumentary: No rashes Neurological: Normal gait, Normal speech, Normal tone, Normal affect Lymphatics: No axilla or inguinal lymphadenopathy Laboratory Data (last 24 hrs) 03/19/24 03/19/24 16:59 16:59 WBC 5.30 Hgb 13.1 L Hct 37.4 L Plt Count 147 L Sodium 134 L Potassium 3.6 BUN 24 H Creatinine 1.44 H Glucose 219 H Magnesium 1.3 L - Problems (1) NSTEMI (non-ST elevated myocardial infarction) Current Visit: No Status: Acute Plan: Patient troponin mild elevated and no significant delta, patient known to have moderate to severe diffuse small LAD disease, patent stents from coronary angiogram in 2022 and patent SVG-RPDA, no further cardiac work up needed. continue ASA 81 mg daily continue Plavix 75 mg daily continue lipitor 40 mg daily continue coreg and losartan patient was not able to tolerate nitrates in the past.
[2024-03-20 13:02] VITALS: O2SAT 100
--- NOTE | 2024-03-20 14:15 | P.DS ---
Admission Date: 03/19/24 Discharge Date: 03/20/24 Disposition: ROUTINE DISCHARGE Discharge Condition: FAIR Reason for Admission: Left-sided chest pain - Problems (1) Chest pain Onset Date: 07/29/15 Status: Acute Qualifiers: (2) History of coronary artery bypass graft Status: Chronic (3) Obesity (BMI 30-39.9) Status: Chronic (4) Diabetes mellitus type 2 in obese Status: Chronic (5) History of OK (myocardial infarction) Status: Chronic (6) Hypercholesterolemia Onset Date: 12/31/14 Status: Chronic (7) Hypertension Status: Chronic Qualifiers: Hypertension type: primary hypertension Qualified Code(s): I10 - Essential (primary) hypertension Brief History of Present Illness: 58-year-old male with past medical history of HTN/DM/CAD status post CABG and subsequent PCI x 4, last was 2 years ago follows with Dr. Adair, history of diastolic CHF on chronic diuretics, who presented because of new onset left- sided chest pain. Pain onset was 1 day ago. Pain was associated with mild shortness of breath as well as some feeling of nausea but denies any vomiting. Patient denies any syncope or palpitation. He denies any loss of consciousness. Pain did not radiate to any side but was located in the left lateral border. He rated pain at its worst at about 10 out of 10. He presented to the ED because of onset of symptoms. On arrival in the ED he received aspirin x 4 tabs with minimal change in pain. He still rates pain at about 6-7 out of 10 now. Vital signs were stable, laboratory workup shows creatinine of 1.4about baseline, troponin of 95, proBNP of 9970. Serum magnesium was low at 1.3 EKG shows normal sinus rhythm with incomplete right bundle branch blockchronic with no new changes. Chest x-ray shows no acute infiltrates or pulmonary edema. Hospital Course: Patient placed under observation on the medical floor, troponin trended negative, patient was asymptomatic during the hospital stay. He was evaluated by cardiology Dr. Pelayo who recommended medical management given patient has small coronary artery unamenable to percutaneous intervention according to his previous cardiac cath results. Patient is currently asymptomatic. He is discharged to continue aspirin Plavix beta-michelle and statins. Vital Signs/Physical Exam: Temp Pulse Resp BP Pulse Ox 97.9 F 75 18 115/69 100 03/20/24 12:00 03/20/24 12:00 03/20/24 12:00 03/20/24 12:00 03/20/24 12:00 General: Alert, In no apparent distress, Oriented x3 HEENT: Mucous membr. moist/pink Neck: Supple, JVD not distended Respiratory: Clear to auscultation bilaterally, Normal air movement Cardiovascular: No edema, Regular rate/rhythm, Normal S1 S2 Gastrointestinal: Normal bowel sounds, Soft and benign, Non-distended, No tenderness Musculoskeletal: No swelling Integumentary: No rashes, No cyanosis Neurological: Normal strength at 5/5 x4 extr Laboratory Data at Discharge: WBC 4.40 thou/uL (4.3-10.9) 03/20/24 06:13 Hgb 13.7 g/dL (13.6-17.9) 03/20/24 06:13 Hct 39.3 % (39.6-49.0) L 03/20/24 06:13 Plt Count 167 thou/uL (152-406) 03/20/24 06:13 Sodium 136 mEq/L (136-145) 03/20/24 06:13 Potassium 3.9 mEq/L (3.5-5.1) 03/20/24 06:13 BUN 22 mg/dL (7-18) H 03/20/24 06:13 Creatinine 1.23 mg/dL (0.70-1.30) 03/20/24 06:13 Glucose 194 mg/dL (74-106) H 03/20/24 06:13 Magnesium 1.3 mg/dL (1.6-2.4) L 03/19/24 16:59 Total Bilirubin 0.5 mg/dL (0.2-1.0) 03/20/24 06:13 AST 15 U/L (15-37) 03/20/24 06:13 ALT 19 U/L (16-61) 03/20/24 06:13 Alkaline Phosphatase 80 U/L (45-117) 03/20/24 06:13 Triglycerides 70 mg/dL (<150) 03/20/24 06:13 Cholesterol 88 mg/dL (<200) 03/20/24 06:13 HDL Cholesterol 34 mg/dL (40-60) L 03/20/24 06:13 Cholesterol/HDL Ratio 2.59 03/20/24 06:13 Home Medications: Carisoprodol [Soma] 350 mg PO TID PRN 07/04/22 Insulin Glargine,Hum.rec.anlog [Lantus] 20 units SQ BEDTIME 07/04/22 Metformin HCl 1,000 mg PO BIDWM 07/04/22 Liraglutide [Victoza 2-Imer] 1.8 mg SQ DAILY 07/05/22 Atorvastatin Calcium [Lipitor*] 40 mg PO BEDTIME 04/13/23 Alprazolam [Xanax] 1 mg PO DAILY 04/29/23 Meclizine HCl 25 mg PO DAILY 08/20/23 Aspirin [Ecotrin 81 MG] 81 mg PO DAILY #30 tab 08/21/23 Clopidogrel Bisulfate [Plavix*] 75 mg PO BEDTIME #30 tab 08/21/23 Hydrocodone 10/APAP 325 [[place] 10/325*] 1 tab PO TID PRN #15 tab 08/21/23 Losartan Potassium [Cozaar*] 50 mg PO DAILY 30 Days #30 tablet 10/30/23 carvediloL [Coreg*] 6.25 mg PO BID 60 Days #60 tab 10/30/23 Diet: ADA Activity: Ad jennifer Followup: NONE,NONE [Primary Care Provider] - Time spent managing pt's care (in minutes): 28
[2024-03-20] MEDS ORDERED: Magnesium Sulfate 2gm IVPB 2 G/50 ML BAG IV ONE (19:40)
--- NOTE | 2024-03-22 12:39 | EKG ---
Test Date: 2024-03-19 Test Time: 16:39:22 Licensed Funeral Director And Embalmer: BELKIS MEASUREMENT RESULTS: Intervals: Rate: 73 MD: 156 QRSD: 108 QT: 424 QTc: 467 [place]: P: 20 MD: 156 QRS: -61 T: 259 INTERPRETIVE STATEMENTS: Normal sinus rhythm Left axis deviation Incomplete right bundle branch block Anteroseptal infarct, age undetermined Abnormal ECG Compared to ECG 02/29/2024 11:34:01 Left-axis deviation now present Incomplete right bundle-branch block now present Left anterior fascicular block no longer present Myocardial infarct finding still present Electronically Signed On 03-22-24 12:33:27 ENVIRONMENTAL HEALTH SPECIALIST by Lam Pelayo
== END 2024-03-20 15:02 | disposition home or self-care (01) ==
LOC: ER 15:40 → ERHOLD 19:37 → 4TH 22:17
PROVIDERS: ADMIT Internal Medicine; ATTEND Internal Medicine
DX: R07.9 Chest pain, unspecified (principal); I44.4 Left anterior fascicular block; I10 Essential (primary) hypertension; E11.9 Type 2 diabetes mellitus without complications; E78.00 Pure hypercholesterolemia, unspecified; I25.10 Atherosclerotic heart disease of native coronary artery without angina pectoris; I25.2 Old myocardial infarction; I50.32 Chronic diastolic (congestive) heart failure; E66.9 Obesity, unspecified; Z95.1 Presence of aortocoronary bypass graft; Z68.30 Body mass index [BMI] 30.0-30.9, adult
CPT/HCPCS: 36415; 71045; 80048; 80053; 80061; 81003; 82947; 83735; 83880; 84484; 85025; 93005; 96374; 96375; 99285; G0378; J1200; J1644; J1650; J2270; J2405; J3475

== ENCOUNTER 2024-05-08 11:27 | Emergency (ER) | payer SELFPAY ==
[2024-05-08 12:13] LABS: Absolute Eosinophils 0.2 K/uL (0-0.5); Absolute Lymphocytes (CBC) 0.9 K/uL (0.7-4.9); Absolute Monocytes 0.5 K/uL (0.1-1.3); Absolute Neutrophil 3.7 K/uL (1.8-8.0); Basophils % 0.8 % (0-1.3); Eosinophils % 3.2 % (0-4.4); Hematocrit 43.8 % (39.6-49.0); Hemoglobin 15.3 g/dL (13.6-17.9); Lymphocytes % 16.9 % (15.3-44.8); MCH 29.4 pg (27.0-35.0); MCHC 34.9 g/dL (32.0-36.0); MCV 84.3 fL (80-100); MPV 7.6 fL (7.6-11.3); Neutrophils % 70.1 % (41.7-73.7); Nucleated Red Blood Cells % 0.1 % (0-0); Platelets 230 thou/uL (152-406); Red Cell Distribution Width 14.2 % (12.1-15.2)
[2024-05-08 12:15] LABS: PT Prothrombin Time 13.2 SECONDS (10-13.0); Protime INR 1.17
[2024-05-08 12:27] LABS: Albumin/Globulin Ratio 0.6 (1.1-1.8); Anion Gap 11.2 mEq/L (5.0-15.0); Bilirubin Direct 0.2 mg/dL (0-0.2); Bilirubin Indirect, Calculated 0.6 mg/dL (0.2-0.8); Bilirubin Total 0.8 mg/dL (0.2-1.0); Globulin 4.8 g/dL (2.3-3.5); Magnesium 1.7 mg/dL (1.6-2.4); Potassium 4.2 mEq/L (3.5-5.1); Protein, Total 7.8 g/dL (6.4-8.2); Troponin High Sensitivity 29.8 pg/mL (<58.9)
--- NOTE | 2024-05-08 12:54 | RAD REPORT ---
EXAMINATION: ONE VIEW CHEST XR CLINICAL INDICATION: Male, 59 years old.,CHEST PAIN TECHNIQUE: Frontal chest projection is submitted. Examination is limited by patient positioning and t echnique. COMPARISON: No prior exam. FINDINGS: Central interstitial prominence. Decreased inspiratory effort limits evaluation. No pneumothorax or sizable effusion. The heart is normal in size. Mediastinal contours are unchanged with sequelae of CABG. IMPRESSION: Findings suggesting mild central congestion or CHF.
[2024-05-08] MEDS ORDERED: FUROSEMIDE 100 MG/10 ML VIAL IV ONE (12:55)
--- NOTE | 2024-05-08 13:03 | ER ---
Nurse's Notes [facility] Name: Jorge Schultz Jr Age: 59 yrs Sex: Male : 1965 Arrival Date: 05/08/2024 Time: 11:27 Bed 14 Private MD: Diagnosis: CHF exacerbation, shortness of breath Presentation: 05/08 11:38 Chief complaint: Patient states: SOB for 2 days. Coronavirus screen: Client denies ll1 travel out of the [place] in the last 14 days. At this time, the client does not indicate any symptoms associated with coronavirus-19. Ebola Screen: Patient denies travel to an Ebola-affected area in the 21 days before illness onset. Initial Sepsis Screen: Does the patient meet any 2 criteria? No. Patient's initial sepsis screen is negative. Does the patient have a suspected source of infection? No. Patient's initial sepsis screen is negative. Risk Assessment: Do you want to hurt yourself or someone else? Patient reports no desire to harm self or others. Onset of symptoms was May 07, 2024. 11:38 Method Of Arrival: Ambulatory ll1 11:38 Acuity: AALIYAH 3 ll1 Historical: - Allergies: 11:38 No Known Drug Allergies; ll1 - PMHx: 11:38 Anxiety; Asthma; CAD; GERD; Glaucoma; High Cholesterol; Hypertension; IDDM; Myocardial ll1 infarction; - PSHx: 11:38 CABG; Stented artery; ll1 - Immunization history:: Adult Immunizations up to date. - Social history:: Smoking status: Patient denies any tobacco usage or history of. Screenin:01 Abuse screen: Denies threats or abuse. Denies injuries from another. Nutritional ss screening: No deficits noted. Tuberculosis screening: Never had TB. Assessment: 12:01 General: Appears in no apparent distress. comfortable, Behavior is calm, cooperative. ss Pain: Complains of pain in "low back" Pain currently is 8 out of 10 on a pain scale. Is continuous. Neuro: Level of Consciousness is awake, alert, obeys commands, Oriented to person, place, time, situation. Respiratory: Airway is patent Respiratory effort is even, unlabored, Respiratory pattern is regular, symmetrical. Derm: Skin is intact, is healthy with good turgor, Skin is pink, warm \\T\\ dry. normal. Musculoskeletal: Circulation, motion, and sensation intact. Range of motion: intact in all extremities, Swelling absent. 13:18 Reassessment: Patient appears in no apparent distress at this time. Patient and/or ss family updated on plan of care and expected duration. Pain level reassessed. Patient is alert, oriented x 3, equal unlabored respirations, skin warm/dry/pink. Respiratory: Respiratory effort is even, unlabored. Vital Signs: 11:38 BP 137 / 89; Pulse 77; Resp 24; Temp 97.2; Pulse Ox 98% on R/A; Weight 79.38 kg; Height ll1 5 ft. 5 in. ; Pain 9/10; 12:13 BP 127 / 85; Pulse 70; Resp 16; Pulse Ox 100% ; me1 13:00 BP 137 / 92; Pulse 67; Resp 18; Pulse Ox 97% ; me1 11:38 Body Mass Index 29.12 (79.38 kg, 165.1 cm) ll1 11:38 Pain Scale: Adult ll1 ED Course: 11:28 Patient arrived in ED. mr 11:29 Claudia Alcazar MD is Attending Physician. sp3 11:39 Triage completed. ll1 11:39 Arm band placed on Patient placed in an exam room, on a stretcher. ll1 12:01 Lactate w/ 2H reflex if indic. Sent. ss 12:01 Basic Metabolic Panel Sent. ss 12:01 CBC with Diff Sent. ss 12:01 LFT's Sent. ss 12:01 Magnesium Sent. ss 12:01 NT PRO-BNP Sent. ss 12:01 Inserted saline lock: 20 gauge in right forearm, using aseptic technique. Blood ss collected. Flushed with 10 mL NS. 12:05 Marybel Olmos, RN is Primary Nurse. me1 12:06 XRAY Chest (1 view) In Process Unspecified. EDMS 12:15 EKG done, by ED staff, reviewed by Claudia Alcazar MD. me1 13:18 Patient has correct armband on for positive identification. Bed in low position. ss 13:18 No provider procedures requiring assistance completed. Patient did not have IV access ss during this emergency room visit. Administered Medications: 12:58 Drug: Furosemide IVP 60 mg IVP once; give over 2 minutes Route: IVP; Site: right me1 forearm; 13:18 Follow up: Response: No adverse reaction me1 Medication: 12:01 VIS not applicable for this client. ss Outcome: 13:03 Discharge ordered by . linda 13:18 Discharged to home ambulatory, 13:18 Condition: good 13:18 Discharge instructions given to patient, Instructed on discharge instructions, follow up and referral plans. Demonstrated understanding of instructions, follow-up care, 13:19 Patient left the ED. ss Signatures: Dispatcher [employer] EDPA Idalia Lane, Reg Reg mr Disha Álvarez RN RN Esme Jasso RN RN ll1 Claudia Alcazar MD MD sp3 Marybel Olmos RN RN me1 Corrections: (The following items were deleted from the chart) 13:20 13:19 BP 137 / 92; Pulse 70bpm; Resp 14bpm; Pulse Ox 100% RA; ss ss
--- NOTE | 2024-05-08 13:03 | EDPHYS ---
Physician Documentation [facility] Name: Jorge Schultz Jr Age: 59 yrs Sex: Male : 1965 Arrival Date: 05/08/2024 Time: 11:27 Bed 14 Private MD: ED Physician Claudia Alcazar HPI: 05/08 12:16 This 59 yrs old Male presents to ER via Ambulatory with complaints of sp3 Shortness Of Breath. 12:16 58-year-old male with extensive cardiac history including hyperlipidemia, hypertension, sp3 CAD, anxiety with multiple visits to the ER for repetitive chest pain episodes presents again today for similar chest pain/shortness of breath episode. Patient states he has not been taking his Lasix regularly. He denies any other symptoms including headache, fever, abdominal pain, vomiting, diarrhea, syncope, rash, known sick contacts, travel history, prolonged immobilization, or any other signs or symptoms on ROS at this time.. Historical: - Allergies: 11:38 No Known Drug Allergies; ll1 - PMHx: 11:38 Anxiety; Asthma; CAD; GERD; Glaucoma; High Cholesterol; Hypertension; IDDM; Myocardial ll1 infarction; - PSHx: 11:38 CABG; Stented artery; ll1 - Immunization history:: Adult Immunizations up to date. - Social history:: Smoking status: Patient denies any tobacco usage or history of. ROS: 12:17 Constitutional: Negative for fever, chills, and weight loss, Eyes: Negative for injury, sp3 pain, redness, and discharge, Neck: Negative for injury, pain, and swelling, Abdomen/GI: Negative for abdominal pain, nausea, vomiting, diarrhea, and constipation, Back: Negative for injury and pain, MS/Extremity: Negative for injury and deformity, Skin: Negative for injury, rash, and discoloration, Neuro: Negative for headache, weakness, numbness, tingling, and seizure, Psych: Negative for depression, anxiety, suicide ideation, homicidal ideation, and hallucinations, Allergy/Immunology: Negative for hives, rash, and allergies, Endocrine: Negative for neck swelling, polydipsia, polyuria, polyphagia, and marked weight changes, Hematologic/Lymphatic: Negative for swollen nodes, abnormal bleeding, and unusual bruising, 12:17 All other systems are negative, Exam: 12:17 Constitutional: This is a well developed, well nourished patient who is awake, alert, sp3 and in no acute distress. Head/Face: Normocephalic, atraumatic. Eyes: Pupils equal round and reactive to light, extra-ocular motions intact. Lids and lashes normal. Conjunctiva and sclera are non-icteric and not injected. Cornea within normal limits. Periorbital areas with no swelling, redness, or edema. Neck: Trachea midline, no thyromegaly or masses palpated, and no cervical lymphadenopathy. Supple, full range of motion without nuchal rigidity, or vertebral point tenderness. No Meningismus. Chest/axilla: Normal chest wall appearance and motion. Nontender with no deformity. No lesions are appreciated. Cardiovascular: Regular rate and rhythm with a normal S1 and S2. No gallops, murmurs, or rubs. Normal PMI, no JVD. No pulse deficits. Abdomen/GI: Soft, non-tender, with normal bowel sounds. No distension or tympany. No guarding or rebound. No evidence of tenderness throughout. Back: No spinal tenderness. No costovertebral tenderness. Full range of motion. Skin: Warm, dry with normal turgor. Normal color with no rashes, no lesions, and no evidence of cellulitis. MS/ Extremity: Pulses equal, no cyanosis. Neurovascular intact. Full, normal range of motion. Neuro: Awake and alert, GCS 15, oriented to person, place, time, and situation. Cranial nerves II-XII grossly intact. Motor strength 5/5 in all extremities. Sensory grossly intact. Cerebellar exam normal. Normal gait. Psych: Awake, alert, with orientation to person, place and time. Behavior, mood, and affect are within normal limits. 12:17 Respiratory: Mild Rales noted bilaterally. Room air pulse oxygenation 98%., 12:21 ECG was reviewed by the Attending Physician. EKG demonstrates normal sinus rhythm at 71 sp3 bpm with normal intervals, incomplete left bundle branch block, nonspecific diffuse ST/T changes without evidence of acute ischemia. EKG is not significantly different from prior dated March 19, 2024. Vital Signs: 11:38 BP 137 / 89; Pulse 77; Resp 24; Temp 97.2; Pulse Ox 98% on R/A; Weight 79.38 kg; Height ll1 5 ft. 5 in. ; Pain 9/10; 12:13 BP 127 / 85; Pulse 70; Resp 16; Pulse Ox 100% ; me1 13:00 BP 137 / 92; Pulse 67; Resp 18; Pulse Ox 97% ; me1 11:38 Body Mass Index 29.12 (79.38 kg, 165.1 cm) ll1 11:38 Pain Scale: Adult ll1 MDM: 11:31 Medical Screening Exam initiated sp3 12:18 Data reviewed: vital signs, nurses notes, old medical records, lab test result(s), EKG, sp3 radiologic studies. ED course: 59-year-old male with extensive PMH as documented above now with shortness of breath and mild chest pain. Differential diagnosis includes CHF, ACS, chronic chest pain, among others. I am not highly suspicious of sepsis, shock, primary respiratory pathology including pneumonia, viral illness bronchitis, or any other critical process. Workup will include EKG, chest x-ray and general labs. Disposition pending workup and patient course with probable discharge if workup negative.. 12:32 ED course: Chest x-ray demonstrates no significant pulmonary edema. BNP at 7000. We sp3 will give 60 mg Lasix IV and discharge patient home. No significant findings otherwise on lab work.. 13:02 ED course: Workup negative except for BMP. Will discharge patient home and tell him to sp3 resume his Lasix and follow-up with his care team.. 05/08 11:31 Order name: Basic Metabolic Panel; Complete Time: 12:29 3 05/08 11:31 Order name: CBC with Diff; Complete Time: 12:29 3 05/08 11:31 Order name: LFT's; Complete Time: 12:29 3 05/08 11:31 Order name: Magnesium; Complete Time: 12:29 3 05/08 11:31 Order name: NT PRO-BNP; Complete Time: 12:29 3 05/08 11:31 Order name: PT-INR; Complete Time: 12:29 3 05/08 11:31 Order name: Troponin HS; Complete Time: 12:29 3 05/08 11:31 Order name: Lactate w/ 2H reflex if indic.; Complete Time: 12:29 3 05/08 11:31 Order name: XRAY Chest (1 view); Complete Time: 13:00 3 05/08 11:31 Order name: Cardiac monitoring; Complete Time: 12:14 sp3 05/08 11:31 Order name: EKG - Nurse/Tech; Complete Time: 12:14 sp3 05/08 11:31 Order name: IV Saline Lock; Complete Time: 12:01 sp3 05/08 11:31 Order name: Labs collected and sent; Complete Time: 12:01 sp3 05/08 11:31 Order name: O2 Per Protocol; Complete Time: 12:01 sp3 05/08 11:31 Order name: O2 Sat Monitoring; Complete Time: 12:01 sp3 Administered Medications: 12:58 Drug: Furosemide IVP 60 mg IVP once; give over 2 minutes Route: IVP; Site: right me1 forearm; 13:18 Follow up: Response: No adverse reaction me1 Disposition Summary: 05/08/24 13:03 Discharge Ordered Notes: Location: Home sp3 Condition: Stable sp3 Diagnosis - CHF exacerbation, shortness of breath sp3 Followup: sp3 - With: Private Physician - When: Upon discharge from the Emergency Department - Reason: Continuance of care Discharge Instructions: - Discharge Summary Sheet sp3 - Heart Failure Exacerbation sp3 Forms: - Medication Reconciliation Form sp3 - Antibiotic Education sp3 - Prescription Opioid Use sp3 - Patient Portal Instructions sp3 - Leadership Thank You Letter sp3 Signatures: Dispatcher [employer] Esme Pope, RITA RN ll1 Claudia Alcazar MD MD sp3 Marybel Olmos RN RN me1 Corrections: (The following items were deleted from the chart) 11:32 11:32 BASIC METABOLIC PANEL+C.LAB.BRZ ordered. EDMS EDMS 11:32 11:32 CBC+H.LAB.BRZ ordered. EDMS EDMS 11:32 11:32 HEPATIC FUNCTION+C.LAB.BRZ ordered. EDMS EDMS 11:32 11:32 MAGNESIUM+C.LAB.BRZ ordered. EDMS EDMS 11:32 11:32 PROBNP+C.LAB.BRZ ordered. EDMS EDMS 11:32 11:32 PROTIME (+INR)+COAG.LAB.BRZ ordered. EDMS EDMS 11:32 11:32 Troponin High Sensitivity+C.LAB.BRZ ordered. EDMS EDMS 11:32 11:32 LACTATE+C.LAB.BRZ ordered. EDMS EDMS 11:32 11:32 Chest Single View+RAD.RAD.BRZ ordered. EDMS EDMS 12:27 12:21 ECG was reviewed by the Attending Physician. EKG demonstrates normal sinus rhythm sp3 at 71 bpm with normal intervals, incomplete left bundle branch block, nonspecific diffuse ST/T changes without evidence of acute ischemia. sp3
[2024-05-08 13:28] VITALS: BP 137/92; TEMP 97.2; O2SAT 97
--- NOTE | 2024-05-10 12:38 | EKG ---
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
== END 2024-05-08 13:19 | disposition home or self-care (01) ==
LOC: ER 11:27
DX: I50.9 Heart failure, unspecified (principal); I10 Essential (primary) hypertension; Z95.1 Presence of aortocoronary bypass graft
CPT/HCPCS: 36415; 71045; 80048; 80076; 83605; 83735; 83880; 84484; 85025; 85610; 93005; 96374; 99284